=== PATIENT | male | born 1960 | race African-American/Black ===

== ENCOUNTER 2016-10-07 00:46 | Inpatient (IN) | payer OTHER ==
--- NOTE | 2016-10-07 00:54 | HP ---
CIWA Score - CIWA Score Nausea/Vomitin Muscle Tremors: 4-Moderate,w/Arms Extend Anxiety: 6 Agitation: 6 Paroxysmal Sweats: 1-Minimal Palms Moist Orientation: 1-Uncertain about Date Tacttile Disturbances: 0-None Auditory Disturbances: 0-None Visual Disturbances: 3-Moderate Sensitivity Headache: 0-None Present CIWA-Ar Total Score: 24 Admission ROS BHS - HPI Chief Complaint: C/O WITHDRAWAL S'S. SEEKING DETOX TXMENT Allergies/Adverse Reactions: Allergies Allergy/AdvReac Type Severity Reaction Status Date / Time No Known Allergies Allergy Verified 10/07/16 01:02 History of Present Illness: 56 Y.O. MALE WITH EXTENSIVE H/O ALCOHOLISM HERE FOR DETOX TXMENT. CLIENT LAST HERE 01/26. DENIES ANY RECENT DETOX/ REHAB SERVICES. HE ALSO DENIES ANY SIGNIFICANT PERIOD OF SOBRIETY. Exam Limitations: No Limitations - Ebola screening Have you traveled outside of the country in the last 21 days: No Have you had contact with anyone from an Ebola affected area: No Have you been sick,other than usual withdrawal symptoms: No Do you have a fever: No - Review of Systems Constitutional: Loss of Appetite, Night Sweats, Changes in sleep, Unintentional Wgt. Loss EENT: reports: No Symptoms Reported Respiratory: reports: No Symptoms reported Cardiac: reports: No Symptoms Reported GI: reports: Nausea, Poor Appetite, Poor Fluid Intake : reports: No Symptoms Reported Musculoskeletal: reports: No Symptoms Reported Integumentary: reports: No Symptoms Reported Neuro: reports: Seizure (WITHDRAWAL R/T) Endocrine: reports: No Symptoms Reported Hematology: reports: No Symptoms Reported Psychiatric: reports: Depressed Other Systems: Reviewed and Negative Patient History - Patient Medical History Hx Anemia: No Hx Asthma: No Hx Chronic Obstructive Pulmonary Disease (COPD): No Hx Cancer: No Hx Cardiac Disorders: No Hx Congestive Heart Failure: No Hx Hypertension: No Hx Hypercholesterolemia: No Hx Pacemaker: No HX Cerebrovascular Accident: No Hx Seizures: Yes (ALCOHOL WITHDRAWAL) Hx Dementia: No Hx Diabetes: Yes (BORDERLINE NO MEDS) Hx Gastrointestinal Disorders: No Hx Liver Disease: No Hx Genitourinary Disorders: No Hx Sexually Transmitted Disorders: No Hx Renal Disease (ESRD): No Hx Thyroid Disease: No Hx Human Immunodeficiency Virus (HIV): No Hx Hepatitis C: No Hx Depression: Yes (PRESENTLY DENIES SI/HI. DENIES MEDS) Hx Suicide Attempt: No Hx Bipolar Disorder: No Hx Schizophrenia: No Other Medical History: H/O + PPD - Patient Surgical History Past Surgical History: Yes Hx Neurologic Surgery: No Hx Cataract Extraction: No Hx Cardiac Surgery: No Hx Lung Surgery: No Hx Breast Surgery: No Hx Breast Biopsy: No Hx Abdominal Surgery: No Hx Appendectomy: No Hx Cholecystectomy: No Hx Genitourinary Surgery: No Hx Section: No Hx Orthopedic Surgery: Yes (LT KNEE SX) Anesthesia Reaction: No - PPD History Previous Implant?: Yes Documented Results: Positive w/o proof Implanted On Prior [facility] Admission?: No Results: CXR 01/26 NEG PPD to be Administered?: No - Smoking Cessation Smoking history: Current some day smoker Have you smoked in the past 12 months: Yes Aproximately how many cigarettes per day: 10 Cigars Per Day: 0 Hx Chewing Tobacco Use: No Initiated information on smoking cessation: Yes 'Breaking Loose' booklet given: 10/07/16 - Substance & Tx. History Hx Alcohol Use: Yes Hx Substance Use: Yes Substance Use Type: Alcohol Hx Substance Use Treatment: Yes ([facility]) - Substances Abused BEER/LIQUOR Route: Oral Frequency: Daily Amount used: 18- 16 OZ/ 1 PINT Age of first use: 12 Date of Last Use: 10/06/16 Family Disease History - Family Disease History Family Disease History: Other: Brother (alcohol,dsa) Admission Physical Exam [facility] - Physical General Appearance: Yes: Mild Distress, Alcohol on Breath, Intoxicated, Thin, Tremorous, Irritable, Anxious HEENTM: Yes: EOMI, Normocephalic, MISSY, Pharynx Normal, Other (MISSING TEETH) Respiratory: Yes: Chest Non-Tender, Lungs Clear, Normal Breath Sounds, No Respiratory Distress, No Accessory Muscle Use Neck: Yes: No masses,lesions,Nodules, Supple, Trachea in good position Breast: Yes: Breast Exam Deferred Cardiology: Yes: Regular Rhythm, S1, S2, Tachycardia Abdominal: Yes: Normal Bowel Sounds, Non Tender, Soft Genitourinary: Yes: Within Normal Limits Back: Yes: Within Normal Limits Musculoskeletal: Yes: full range of Motion, Other (UNSTEADY GAIT) Extremities: Yes: Normal Range of Motion, Non-Tender, Tremors Neurological: Yes: Alert, Motor Strength 5/5 Integumentary: Yes: Normal Color, Warm, Moist Lymphatic: Yes: Within Normal Limits - Diagnostic (1) Alcohol dependence with uncomplicated withdrawal Current Visit: Yes Status: Chronic (2) Seizure Current Visit: No Status: Acute (3) Nicotine dependence Current Visit: Yes Status: Chronic Qualifiers: Nicotine product type: cigarettes Substance use status: uncomplicated Qualified Code(s): F17.210 - Nicotine dependence, cigarettes, uncomplicated Cleared for Admission [facility] - Detox or Rehab [facility] Level of Care: Medically Managed Detox Regimen/Protocol: Librium S Breath Alcohol Content Breath Alcohol Content: 0.255 Vital Signs - Vital Signs Vital Signs Refused: Yes Temperature: 96.4 F Temperature Source: Oral Pulse Rate: 99 Respiratory Rate: 20 Blood Pressure: 118/81 BP Location: Left Arm Blood Pressure Position: Sitting - Height Height: 5 ft 7 in - Weight Weight: 58.06 kg Weight Measurement Method: Standing Scale Body Mass Index (BMI): 20.0 - Bowel Function Bowel Movement: No Urine Drug Screen - Test Device Lot Number: [id number] Expiration Date: 04/11/18 - Control Is Test Valid: Yes - Results Drug Screen Negative: Yes
[2016-10-07] MEDS ORDERED: MAGNESIUM HYDROX 2400MG/30ML ORAL SUSPENSION 30 ML CUP PO PRN (00:59)
[2016-10-07] MEDS ORDERED: hydrOXYzine PAMOATE 50 MG CAPSULE (FP) PO PRN (00:59)
[2016-10-07] MEDS ORDERED: NICOTINE POLACRILEX 2 MG GUM BC PRN (00:59)
[2016-10-07] MEDS ORDERED: MENTHOL/PHENOL 1 EACH UD MM PRN (00:59)
[2016-10-07] MEDS ORDERED: guaiFENesin/D-METHORPHAN HB 10 ML UNIT-DOSE CUPS PO PRN (00:59)
[2016-10-07] MEDS ORDERED: MAGNESIUM CITRATE 300 ML BOTTLE PO PRN (00:59)
[2016-10-07] MEDS ORDERED: MAG HYDROX/AL HYDROX/SIMETH 30 ML UNIT-DOSE CUP PO PRN (00:59)
[2016-10-07] MEDS ORDERED: P-EPHED 60MG/TRIPROLIDI 2.5MG TABLET PO PRN (00:59)
[2016-10-07] MEDS ORDERED: LOPERAMIDE HCL 2 MG CAPSULE PO PRN (00:59)
[2016-10-07] MEDS ORDERED: chlordiazePOXIDE HCL 25 MG CAPSULE PO PRN (00:59)
[2016-10-07] MEDS: diphenhydrAMINE HCL 50 MG CAPSULE PO PRN ×2 (01:32→22:40)
[2016-10-07] MEDS: IBUPROFEN 400 MG TABLET (FP) PO PRN ×2 (02:07→10:25)
[2016-10-07] MEDS: chlordiazePOXIDE HCL 25 MG CAPSULE PO SCH ×4 (06:41→22:40)
--- NOTE | 2016-10-07 09:15 | CONSULT ---
[facility] Psychiatric Consult - Data Date of interview: 10/07/16 Admission source: [facility] Identifying data: This is 56 years old male with history of Schizoaffective disorder intoxicated with: Alcohol Nicotine, with history of Cannabis and Cocaine abuse as well Substance Abuse History: - Smoking Cessation. Smoking history: Current some day smoker. Have you smoked in the past 12 months: Yes. Aproximately how many cigarettes per day: 10. Cigars Per Day: 0. Hx Chewing Tobacco Use: No. Initiated information on smoking cessation: Yes. 'Breaking Loose' booklet given : 10/07/16. - Substance & Tx. History. Hx Alcohol Use: Yes. Hx Substance Use : Yes. Substance Use Type: Alcohol. Hx Substance Use Treatment: Yes ([facility]). - Substances Abused. BEER/LIQUOR. Route: Oral. Frequency: Daily. Amount used: 18- 16 OZ/ 1 PINT. Age of first use: 12. Date of Last Use: 10/06/16 Medical History: Syncope history, Seizure history, Left Knee injury, Weight loss history Psychiatric History: Patient reports history of Schizoaffective disorder with most recent psyhciatric admission on more then 10 years ago, reports taking prior toadmission: Zyprexa 10mg po qhs Mental Status Exam - Mental Status Exam Alert and Oriented to: Person Cognitive Function: Fair Patient Appearance: Unkempt Mood: Nervous Affect: Mood Congruent Patient Behavior: Cooperative Speech Pattern: Appropriate Voice Loudness: Normal Thought Process: Goal Oriented Thought Disorder: Being Controlled Hallucinations: Denies Suicidal Ideation: Denies Homicidal Ideation: Denies Insight/Judgement: Fair Sleep: Difficulty falling asleep Appetite: Weight loss Muscle strength/Tone: Normal Gait/Station: Normal Additional Comments: Zyprexa 10mg po qhs Psychiatric Findings - Problem List ([place] 1, 2,3) (1) Alcohol dependence with uncomplicated withdrawal Current Visit: Yes Status: Chronic (2) Nicotine dependence Current Visit: Yes Status: Chronic Qualifiers: Nicotine product type: cigarettes Substance use status: uncomplicated Qualified Code(s): F17.210 - Nicotine dependence, cigarettes, uncomplicated (3) Cocaine dependence Current Visit: No Status: Active (4) schizoaffective disorder Current Visit: No Status: Active (5) Alcohol abuse Current Visit: No Status: Acute (6) Alcohol dependence Current Visit: No Status: Acute (7) Alcohol-induced mood disorder Current Visit: No Status: Acute (8) Drug-induced mood disorder Current Visit: No Status: Acute (9) Non compliance with medical treatment Current Visit: No Status: Acute (10) Schizoaffective disorder Current Visit: No Status: Acute (11) cannabis dependence Current Visit: No Status: Acute (12) Alcohol dependence Current Visit: No Status: Chronic (13) Anxiety and depression Current Visit: No Status: Chronic - Initial Treatment Plan Initial Treatment Plan: Zyprexa 10mg po qhs
[2016-10-07] MEDS: NICOTINE 14 MG/24 HOURS TOPICAL PATCH TD SCH (10:24)
[2016-10-07] MEDS: PRENATAL VITAMINS W/ FOLIC ACID TABLET (FP) PO SCH (10:24)
[2016-10-07 10:56] LABS: ALBUMIN 2.7 g/dl (3.4-5.0); ALK PHOS 154 U/L (45-117); ANION GAP 16 (8-16); BILIRUBIN,TOTAL 1.3 mg/dL (0.2-1.0); CO2 21 mmol/L (21-32); COCKROFT - GAULT 84.6; CREATININE 0.8 mg/dL (0.7-1.3)
[2016-10-07 10:59] LABS: GLUCOSE,RANDOM 155 mg/dL (74-106)
[2016-10-07 11:07] LABS: MCH 34.7 pg (25.7-33.7); MCHC 36.8 g/dl (32.0-35.9); MEAN CELL VOLUME 94.5 fl (80-96); MEAN PLT VOLUME 9.2 fl (7.5-11.1); PLATELET COUNT 74 K/MM3 (134-434); RDW 14.8 % (11.9-15.9); WHITE BLOOD COUNT 2.2 K/mm3 (4.0-10.0)
[2016-10-07] MEDS ORDERED: INFLUENZA VACCINE 45 MCG/0.5 ML (MDV 16-17) IM ONE (12:00)
--- NOTE | 2016-10-07 12:16 | PN ---
[facility] Progress Note Note: PT WAS ADMITTED EARLIER TODAY. ALERT O X 3. NAD. DETOX PROTOCOL DIRECTED.
--- NOTE | 2016-10-07 13:34 | EKG ---
Test Reason : Blood Pressure : / mmHG Vent. Rate : 088 BPM Atrial Rate : 088 BPM P-R Int : 188 ms QRS Dur : 102 ms QT Int : 394 ms P-R-T Axes : 069 075 060 degrees QTc Int : 476 ms NORMAL SINUS RHYTHM POSSIBLE LEFT ATRIAL ENLARGEMENT BORDERLINE ECG WHEN COMPARED WITH ECG OF 27-NOV-2014 14:25, T WAVE INVERSION NO LONGER EVIDENT IN ANTERIOR LEADS Confirmed by GEORGES ALSTON, KRYSTIAN ([id number]) on 10/07/2016 1:33:50 PM Referred By: Confirmed By:KRYSTIAN SU MD
[2016-10-07 15:45] LABS: URINE APPEARANCE CLEAR; URINE BILIRUBIN NEGATIVE (NEGATIVE); URINE BLOOD NEGATIVE (NEGATIVE); URINE COLOR YELLOW; URINE GLUCOSE (UA) NEGATIVE (NEGATIVE); URINE KETONE NEGATIVE (NEGATIVE); URINE LEUK ESTERASE NEGATIVE (NEGATIVE); URINE NITRITE NEGATIVE (NEGATIVE); URINE PROTEIN NEGATIVE (NEGATIVE); URINE UROBILINOGEN NEGATIVE E.U./dl (0.2-1.0)
[2016-10-07 18:58] LABS: HIV 1 & 2 AB NEGATIVE; HIV 1 AGp24 NEGATIVE
[2016-10-07] MEDS: THIAMINE HCL 100 MG TABLET (FP) PO SCH (22:39)
[2016-10-07] MEDS: OLANZapine 10 MG TABLET PO SCH (22:40)
[2016-10-07] MEDS: ACETAMINOPHEN 325 MG TABLET (FP) PO PRN (22:41)
[2016-10-08] MEDS: chlordiazePOXIDE HCL 25 MG CAPSULE PO SCH ×4 (05:34→22:17)
[2016-10-08] MEDS: NICOTINE 14 MG/24 HOURS TOPICAL PATCH TD SCH (10:37)
[2016-10-08] MEDS: PRENATAL VITAMINS W/ FOLIC ACID TABLET (FP) PO SCH (10:37)
--- NOTE | 2016-10-08 12:43 | PN ---
S CIWA - CIWA Score Nausea/Vomitin-Mild Nausea/No Vomiting Muscle Tremors: 4-Moderate,w/Arms Extend Anxiety: 4-Mod. Anxious/Guarded Agitation: 3 Paroxysmal Sweats: 3 Orientation: 0-Oriented Tacttile Disturbances: 1-Very Mild Itch/Numbness Auditory Disturbances: 0-None Visual Disturbances: 0-None Headache: 0-None Present CIWA-Ar Total Score: 16 BHS Progress Note (SOAP) Subjective: Anxiety,tremors,sweating,interrupted sleep,restless Objective: 10/08/16 12:42 Vital Signs - 8 hr 10/08/16 10/08/16 10/08/16 06:30 06:39 09:29 Temperature 96 F L 97.7 F Pulse Rate 109 H 96 H Respiratory 18 18 16 Rate Blood Pressure 124/82 122/89 Laboratory Tests 10/07/16 10/07/16 10/07/16 07:00 07:00 07:00 WBC 2.2 L RBC 3.13 L Hgb 10.9 L Hct 29.6 L MCV 94.5 MCHC 36.8 H RDW 14.8 Plt Count 74 L D MPV 9.2 Sodium 134 L Potassium 3.8 Chloride 97 L Carbon Dioxide 21 Anion Gap 16 BUN Creatinine 0.8 D Creat Clearance w eGFR > 60 Random Glucose 155 H D Calcium Total Bilirubin 1.3 H D AST ALT Alkaline Phosphatase 154 H D Total Protein Albumin 2.7 L Urine Color Urine Appearance Urine pH Ur Specific [place] Urine Protein Urine Glucose (UA) Urine Ketones Urine Blood Urine Nitrite Urine Bilirubin Urine Urobilinogen Ur Leukocyte Esterase RPR Titer Nonreactive HIV 1&2 Antibody Screen HIV P24 Antigen 10/07/16 10/07/16 11:00 11:00 WBC RBC Hgb Hct MCV MCHC RDW Plt Count MPV Sodium Potassium Chloride Carbon Dioxide Anion Gap BUN Creatinine Creat Clearance w eGFR Random Glucose Calcium Total Bilirubin AST ALT Alkaline Phosphatase Total Protein Albumin Urine Color Yellow Urine Appearance Clear Urine pH 5.0 Ur Specific [place] 1.011 Urine Protein Negative Urine Glucose (UA) Negative Urine Ketones Negative Urine Blood Negative Urine Nitrite Negative Urine Bilirubin Negative Urine Urobilinogen Negative Ur Leukocyte Esterase Negative RPR Titer HIV 1&2 Antibody Screen Negative HIV P24 Antigen Negative labs noted Assessment: 10/08/16 12:42 Withdrawal sx. Plan: Continue detox
[2016-10-08] MEDS: IBUPROFEN 400 MG TABLET (FP) PO PRN (17:05)
[2016-10-08] MEDS: THIAMINE HCL 100 MG TABLET (FP) PO SCH (22:17)
[2016-10-08] MEDS: diphenhydrAMINE HCL 50 MG CAPSULE PO PRN (22:17)
[2016-10-08] MEDS: OLANZapine 10 MG TABLET PO SCH (22:17)
[2016-10-09] MEDS: diphenhydrAMINE HCL 50 MG CAPSULE PO PRN (00:26)
[2016-10-09] MEDS: chlordiazePOXIDE 5 MG CAPSULE PO SCH ×3 (04:37→17:47)
[2016-10-09] MEDS: IBUPROFEN 400 MG TABLET (FP) PO PRN (05:45)
[2016-10-09] MEDS: ACETAMINOPHEN 325 MG TABLET (FP) PO PRN ×2 (10:27→17:48)
[2016-10-09] MEDS: NICOTINE 14 MG/24 HOURS TOPICAL PATCH TD SCH (10:27)
[2016-10-09] MEDS: PRENATAL VITAMINS W/ FOLIC ACID TABLET (FP) PO SCH (10:27)
--- NOTE | 2016-10-09 15:53 | PN ---
[facility] CIWA - CIWA Score Nausea/Vomitin-Int. Nausea w/Dry Heave Muscle Tremors: 4-Moderate,w/Arms Extend Anxiety: 3 Agitation: 2 Paroxysmal Sweats: 3 Orientation: 4Disoriented Place/Person Tacttile Disturbances: 3-Moderate Itch/Numb/Burn Auditory Disturbances: 0-None Visual Disturbances: 0-None Headache: 0-None Present CIWA-Ar Total Score: 23 S Progress Note (SOAP) Subjective: Interrupted sleep, Body aches, Nausea. Objective: PT. A & O X 1 (DISORIENTED ABOUT DAY/DATE AND ABOUT CURRENT LOCATION). PT. OBSERVED AMBULATING ON UNIT. 10/09/16 15:51 Vital Signs Temperature 96.0 F L 10/09/16 13:46 Pulse Rate 108 H 10/09/16 13:46 Respiratory Rate 20 10/09/16 13:46 Blood Pressure 126/84 10/09/16 13:46 O2 Sat by Pulse Oximetry (%) Laboratory Last Values WBC 2.2 K/mm3 (4.0-10.0) L 10/07/16 07:00 RBC 3.13 M/mm3 (4.00-5.60) L 10/07/16 07:00 Hgb 10.9 GM/dL (11.7-16.9) L 10/07/16 07:00 Hct 29.6 % (35.4-49) L 10/07/16 07:00 MCV 94.5 fl (80-96) 10/07/16 07:00 MCHC 36.8 g/dl (32.0-35.9) H 10/07/16 07:00 RDW 14.8 % (11.9-15.9) 10/07/16 07:00 Plt Count 74 K/MM3 (134-434) L D 10/07/16 07:00 MPV 9.2 fl (7.5-11.1) 10/07/16 07:00 Sodium 134 mmol/L (136-145) L 10/07/16 07:00 Potassium 3.8 mmol/L (3.5-5.1) 10/07/16 07:00 Chloride 97 mmol/L (98-107) L 10/07/16 07:00 Carbon Dioxide 21 mmol/L (21-32) 10/07/16 07:00 Anion Gap 16 (8-16) 10/07/16 07:00 BUN mg/dL (7-18) 10/07/16 07:00 Creatinine 0.8 mg/dL (0.7-1.3) D 10/07/16 07:00 Creat Clearance w eGFR > 60 (>60) 10/07/16 07:00 Random Glucose 155 mg/dL (74-106) H D 10/07/16 07:00 Calcium mg/dL (8.5-10.1) 10/07/16 07:00 Total Bilirubin 1.3 mg/dL (0.2-1.0) H D 10/07/16 07:00 AST U/L (15-37) 10/07/16 07:00 ALT U/L (12-78) 10/07/16 07:00 Alkaline Phosphatase 154 U/L (45-117) H D 10/07/16 07:00 Total Protein g/dl (6.4-8.2) 10/07/16 07:00 Albumin 2.7 g/dl (3.4-5.0) L 10/07/16 07:00 Urine Color Yellow 10/07/16 11:00 Urine Appearance Clear 10/07/16 11:00 Urine pH 5.0 (5.0-8.0) 10/07/16 11:00 Ur Specific [place] 1.011 (1.001-1.035) 10/07/16 11:00 Urine Protein Negative (NEGATIVE) 10/07/16 11:00 Urine Glucose (UA) Negative (NEGATIVE) 10/07/16 11:00 Urine Ketones Negative (NEGATIVE) 10/07/16 11:00 Urine Blood Negative (NEGATIVE) 10/07/16 11:00 Urine Nitrite Negative (NEGATIVE) 10/07/16 11:00 Urine Bilirubin Negative (NEGATIVE) 10/07/16 11:00 Urine Urobilinogen Negative E.U./dl (0.2-1.0) 10/07/16 11:00 Ur Leukocyte Esterase Negative (NEGATIVE) 10/07/16 11:00 RPR Titer Nonreactive (NONREACTIVE) 10/07/16 07:00 HIV 1&2 Antibody Screen Negative 10/07/16 11:00 HIV P24 Antigen Negative 10/07/16 11:00 LABS NOTED. 10/09/16 15:55 Assessment: 10/09/16 15:55 WITHDRAWAL SYMPTOMS. Plan: CONTINUE DETOX. RE-ORDER BUN TOMORROW. ADVISED PATIENT TO FOLLOW-UP WITH PRICE ANALYST / REHAB MEDICAL PROVIDER AFTER DISCHARGE FROM DETOX FOR GENERAL MEDICAL ASSESSMENT AND FOR ABNORMAL ADMISSION LAB VALUES.
[2016-10-09 17:47] VITALS: BP 147/73; PULSE 81; TEMP 98.8
--- NOTE | 2016-10-09 19:38 | DS ---
[facility] Detox Discharge Summary Admission Date: 10/07/16 Discharge Date: 10/09/16 - History Present History: Alcohol Dependence - Physical Exam Results Vital Signs: Vital Signs Temperature 98.8 F 10/09/16 17:46 Pulse Rate 81 10/09/16 17:46 Respiratory Rate 19 10/09/16 17:46 Blood Pressure 147/73 10/09/16 17:46 O2 Sat by Pulse Oximetry (%) - Treatment Hospital Course: Discharged Condition Good - Medication Discharge Medications: Ambulatory Orders Olanzapine [ZyPREXA -] 10 mg PO HS #30 tablet 11/05/15 Olanzapine [ZyPREXA -] 10 mg PO HS #30 tablet 10/07/16 - AMA Did Patient Leave Against Medical Advice: Yes (REPORTS HE HAS A [employer] PARTY TO ATTEND AND WILL RETURN AFTER THE [employer]. )
[2016-10-10] MEDS ORDERED: chlordiazePOXIDE HCL 10 MG CAPSULE PO SCH (05:00)
== END 2016-10-09 19:45 | disposition left against medical advice (07) | DRG 770 ==
LOC: YASAS 00:46 → Y3N 01:04
PROVIDERS: ADMIT Internal Medicine; ATTEND Internal Medicine
PROC: HZ2ZZZZ Detoxification Services for Substance Abuse Treatment (ICD-10-PCS; principal; 2016-10-09)
DX: F10.230 Alcohol dependence with withdrawal, uncomplicated (principal); F14.20 Cocaine dependence, uncomplicated; F12.20 Cannabis dependence, uncomplicated; F17.210 Nicotine dependence, cigarettes, uncomplicated; F10.24 Alcohol dependence with alcohol-induced mood disorder; F19.24 Other psychoactive substance dependence with psychoactive substance-induced mood disorder; F25.9 Schizoaffective disorder, unspecified; F41.8 Other specified anxiety disorders; Z91.14 Patient's other noncompliance with medication regimen
CPT/HCPCS: 36415; 80053; 81003; 85027; 86593; 87389; 93005; 93010

== ENCOUNTER 2016-11-28 20:55 | Inpatient (IN) | payer OTHER ==
--- NOTE | 2016-11-28 21:27 | HP ---
CIWA Score - CIWA Score Nausea/Vomitin Muscle Tremors: 4-Moderate,w/Arms Extend Anxiety: 4-Mod. Anxious/Guarded Agitation: 4-Moderately Restless Paroxysmal Sweats: 1-Minimal Palms Moist Orientation: 1-Uncertain about Date Tacttile Disturbances: 2-Mild Itch/Numbness/Burn Auditory Disturbances: 2-Mild Harshness/Frighten Visual Disturbances: 0-None Headache: 2-Mild CIWA-Ar Total Score: 23 Admission ROS BHS - HPI Chief Complaint: C/O ALCOHOLISM. SEEKING DETOX Allergies/Adverse Reactions: Allergies Allergy/AdvReac Type Severity Reaction Status Date / Time No Known Allergies Allergy Verified 11/28/16 21:21 History of Present Illness: 56 Y.O MALE WITH LONG H/O ALCOHOLISM ADMITTED TO DETOX. DENIES RECENT DETOX SINCE LAST VISIT. SELF REFERRED. REPORTS LONGEST CLEAN TIME 1 YEAR. CLIENT IS PRESENTLY ON CLINICAL CONCERNS LIST FOR AMA. D/W CLIENT ABOUT COMPLIANCE AND COMPLETING TXMENT. CLIENT VERBALIZED UNDERSTANDING Exam Limitations: Intoxication - Ebola screening Have you traveled outside of the country in the last 21 days: No (N) Have you had contact with anyone from an Ebola affected area: No Do you have a fever: No - Review of Systems Constitutional: Chills, Loss of Appetite, Night Sweats, Changes in sleep, Unintentional Wgt. Loss EENT: reports: Dental Problems (MISSING TEETH) Respiratory: reports: No Symptoms reported Cardiac: reports: No Symptoms Reported GI: reports: Nausea, Poor Appetite, Poor Fluid Intake, Vomiting, Abdominal cramping : reports: No Symptoms Reported Musculoskeletal: reports: No Symptoms Reported Integumentary: reports: No Symptoms Reported Neuro: reports: Headache (FROM INTOXICATION), Tremors (FROM ETOH) Endocrine: reports: No Symptoms Reported Hematology: reports: No Symptoms Reported Psychiatric: reports: Anxious, Depressed Other Systems: Reviewed and Negative Patient History - Patient Medical History Hx Anemia: No Hx Asthma: No Hx Chronic Obstructive Pulmonary Disease (COPD): No Hx Cancer: No Hx Cardiac Disorders: No Hx Congestive Heart Failure: No Hx Hypertension: No Hx Hypercholesterolemia: No Hx Pacemaker: No HX Cerebrovascular Accident: No Hx Seizures: No Hx Dementia: No Hx Diabetes: Yes (STATES BODERLINE) Hx Gastrointestinal Disorders: No Hx Liver Disease: No Hx Genitourinary Disorders: No Hx Sexually Transmitted Disorders: No Hx Renal Disease (ESRD): No Hx Thyroid Disease: No Hx Human Immunodeficiency Virus (HIV): No Hx Hepatitis C: No Hx Depression: Yes Hx Suicide Attempt: No Hx Bipolar Disorder: No Hx Schizophrenia: No Other Medical History: DENIES - Patient Surgical History Past Surgical History: Yes Hx Neurologic Surgery: No Hx Cataract Extraction: No Hx Cardiac Surgery: No Hx Lung Surgery: No Hx Breast Surgery: No Hx Breast Biopsy: No Hx Abdominal Surgery: No Hx Appendectomy: No Hx Cholecystectomy: No Hx Genitourinary Surgery: No Hx Section: No Hx Orthopedic Surgery: Yes (LT KNEE SX) Anesthesia Reaction: No - PPD History Previous Implant?: Yes Documented Results: Negative w/proof Implanted On Prior [facility] Admission?: Yes Results: CXR 01/26 NEG PPD to be Administered?: No - Smoking Cessation Smoking history: Current some day smoker Have you smoked in the past 12 months: Yes Aproximately how many cigarettes per day: 10 Cigars Per Day: 0 Hx Chewing Tobacco Use: No Initiated information on smoking cessation: Yes 'Breaking Loose' booklet given: 11/28/16 - Substance & Tx. 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 Age of first use: 7 Date of Last Use: 11/28/16 Family Disease History - Family Disease History Family Disease History: Other: Brother (alcohol,dsa) Admission Physical Exam [facility] - Physical General Appearance: Yes: Appropriately Dressed, Alcohol on Breath, Intoxicated, Tremorous, Anxious HEENTM: Yes: EOMI, Normocephalic, MISSY, Pharynx Normal, Rhinorrhea Respiratory: Yes: Chest Non-Tender, Lungs Clear, Normal Breath Sounds, No Respiratory Distress, No Accessory Muscle Use Neck: Yes: No masses,lesions,Nodules, Supple, Trachea in good position Breast: Yes: Breast Exam Deferred Cardiology: Yes: Regular Rhythm, S1, S2, Tachycardia Abdominal: Yes: Normal Bowel Sounds, Non Tender, Soft Genitourinary: Yes: Within Normal Limits Back: Yes: Normal Inspection Musculoskeletal: Yes: full range of Motion, Gait Steady Extremities: Yes: Normal Capillary Refill, Normal Range of Motion, Non-Tender, Tremors Neurological: Yes: Alert Integumentary: Yes: Dry, Warm, Other (FLUSHED FACE) Lymphatic: Yes: Within Normal Limits - Diagnostic (1) Alcohol dependence with uncomplicated withdrawal Current Visit: Yes Status: Chronic (2) Nicotine dependence Current Visit: No Status: Chronic Qualifiers: Nicotine product type: cigarettes Substance use status: uncomplicated Qualified Code(s): F17.210 - Nicotine dependence, cigarettes, uncomplicated Cleared for Admission BHS - Detox or Rehab S Level of Care: Medically Managed Detox Regimen/Protocol: Librium BHS Breath Alcohol Content Breath Alcohol Content: 0.355 Vital Signs - Vital Signs Vital Signs Refused: No Temperature: 96.4 F Temperature Source: Oral Pulse Rate: 108 Respiratory Rate: 18 Blood Pressure: 118/81 BP Location: Left Arm Blood Pressure Position: Sitting - Height Height: 5 ft 6 in - Weight Weight: 58.06 kg Weight Measurement Method: Standing Scale Body Mass Index (BMI): 20.6 Urine Drug Screen - Test Device Lot Number: [id number] Expiration Date: 09/10/18 - Control Is Test Valid: Yes - Results Drug Screen Negative: No
[2016-11-28 21:39] VITALS: BMI 20.6
[2016-11-28] MEDS ORDERED: MENTHOL/PHENOL 1 EACH UD MM PRN (21:40)
[2016-11-28] MEDS ORDERED: chlordiazePOXIDE HCL 25 MG CAPSULE PO PRN (21:40)
[2016-11-28] MEDS ORDERED: MAG HYDROX/AL HYDROX/SIMETH 30 ML UNIT-DOSE CUP PO PRN (21:40)
[2016-11-28] MEDS ORDERED: MAGNESIUM CITRATE 300 ML BOTTLE PO PRN (21:40)
[2016-11-28] MEDS ORDERED: P-EPHED 60MG/TRIPROLIDI 2.5MG TABLET PO PRN (21:40)
[2016-11-28] MEDS ORDERED: hydrOXYzine PAMOATE 50 MG CAPSULE (FP) PO PRN (21:40)
[2016-11-28] MEDS ORDERED: ACETAMINOPHEN 325 MG TABLET (FP) PO PRN (21:40)
[2016-11-28] MEDS ORDERED: NICOTINE POLACRILEX 2 MG GUM BUC PRN (21:40)
[2016-11-28] MEDS ORDERED: guaiFENesin/D-METHORPHAN HB 10 ML UNIT-DOSE CUPS PO PRN (21:40)
[2016-11-28] MEDS ORDERED: LOPERAMIDE HCL 2 MG CAPSULE PO PRN (21:40)
[2016-11-28] MEDS ORDERED: MAGNESIUM HYDROX 2400MG/30ML ORAL SUSPENSION 30 ML CUP PO PRN (21:40)
[2016-11-28] MEDS: chlordiazePOXIDE HCL 25 MG CAPSULE PO SCH (23:42)
[2016-11-28] MEDS: NICOTINE 14 MG/24 HOURS TOPICAL PATCH TD SCH (23:43)
[2016-11-28] MEDS: THIAMINE HCL 100 MG TABLET (FP) PO SCH (23:43)
[2016-11-28] MEDS: diphenhydrAMINE HCL 50 MG CAPSULE PO PRN (23:45)
[2016-11-29] MEDS: chlordiazePOXIDE HCL 25 MG CAPSULE PO SCH ×4 (05:57→22:23)
[2016-11-29 10:18] LABS: MCH 31.4 pg (25.7-33.7); MCHC 33.8 g/dl (32.0-35.9); MEAN CELL VOLUME 92.7 fl (80-96); MEAN PLT VOLUME 9.3 fl (7.5-11.1); PLATELET COUNT 81 K/MM3 (134-434); RDW 14.6 % (11.9-15.9); WHITE BLOOD COUNT 2.3 K/mm3 (4.0-10.0)
[2016-11-29 10:36] LABS: ALBUMIN 3.4 g/dl (3.4-5.0); ALK PHOS 117 U/L (45-117); ANION GAP 12 (8-16); BILIRUBIN,TOTAL 0.6 mg/dL (0.2-1.0); CALCIUM 8.8 mg/dL (8.5-10.1); CO2 27 mmol/L (21-32); CREATININE 0.7 mg/dL (0.7-1.3); GLUCOSE,RANDOM 92 mg/dL (74-106); SGOT/AST 106 U/L (15-37); SGPT/ALT 60 U/L (12-78); TOT PROT 7.3 g/dl (6.4-8.2)
--- NOTE | 2016-11-29 10:41 | PN ---
[facility] CIWA - CIWA Score Nausea/Vomitin Muscle Tremors: 3 Anxiety: 3 Agitation: 2 Paroxysmal Sweats: 1-Minimal Palms Moist Orientation: 0-Oriented Tacttile Disturbances: 1-Very Mild Itch/Numbness Auditory Disturbances: 1-Very Mild Visual Disturbances: 1-Very Mild Sensitivity Headache: 2-Mild CIWA-Ar Total Score: 17 BHS Progress Note (SOAP) Subjective: ALERT,IRRITABLE,ANXIOUS,TREMOR,INTERRUPTED SLEEP, Objective: 11/29/16 10:39 Vital Signs Temperature 98.1 F 11/29/16 06:00 Pulse Rate 89 11/29/16 06:00 Respiratory Rate 18 11/29/16 06:00 Blood Pressure 124/79 11/29/16 06:00 O2 Sat by Pulse Oximetry (%) EKG NSR NO CHEAT PAIN,NO SOB,NO DIZZINESS Laboratory Last Values WBC 2.3 K/mm3 (4.0-10.0) L 11/29/16 07:00 RBC 3.53 M/mm3 (4.00-5.60) L 11/29/16 07:00 Hgb 11.1 GM/dL (11.7-16.9) L 11/29/16 07:00 Hct 32.8 % (35.4-49) L 11/29/16 07:00 MCV 92.7 fl (80-96) 11/29/16 07:00 MCHC 33.8 g/dl (32.0-35.9) 11/29/16 07:00 RDW 14.6 % (11.9-15.9) 11/29/16 07:00 Plt Count 81 K/MM3 (134-434) L 11/29/16 07:00 MPV 9.3 fl (7.5-11.1) 11/29/16 07:00 LABS PENDING Assessment: 11/29/16 10:40 WITHDRAWAL SYMPTOM Plan: CONTINUE DETOX
[2016-11-29 11:00] LABS: HIV 1 & 2 AB NEGATIVE; HIV 1 AGp24 NEGATIVE
[2016-11-29] MEDS: PRENATAL VITAMINS W/ FOLIC ACID TABLET (FP) PO SCH (11:28)
[2016-11-29] MEDS: NICOTINE 14 MG/24 HOURS TOPICAL PATCH TD SCH (11:30)
--- NOTE | 2016-11-29 14:23 | EKG ---
Test Reason : Blood Pressure : / mmHG Vent. Rate : 089 BPM Atrial Rate : 089 BPM P-R Int : 188 ms QRS Dur : 112 ms QT Int : 384 ms P-R-T Axes : 062 065 060 degrees QTc Int : 467 ms NORMAL SINUS RHYTHM POSSIBLE LEFT ATRIAL ENLARGEMENT BORDERLINE ECG WHEN COMPARED WITH ECG OF 07-OCT-2016 00:40, T WAVE VARIATION Confirmed by XENIA MUNGUIA MD ([id number]) on 11/29/2016 2:22:59 PM Referred By: Cristiano Lou Confirmed By:XENIA MUNGUIA MD
[2016-11-29] MEDS: diphenhydrAMINE HCL 50 MG CAPSULE PO PRN (22:23)
[2016-11-29] MEDS: THIAMINE HCL 100 MG TABLET (FP) PO SCH (22:23)
[2016-11-30] MEDS: chlordiazePOXIDE HCL 25 MG CAPSULE PO SCH ×3 (05:34→17:45)
[2016-11-30] MEDS: PRENATAL VITAMINS W/ FOLIC ACID TABLET (FP) PO SCH (10:32)
[2016-11-30] MEDS: NICOTINE 14 MG/24 HOURS TOPICAL PATCH TD SCH (10:32)
--- NOTE | 2016-11-30 11:21 | PN ---
[facility] CIWA - CIWA Score Nausea/Vomitin Muscle Tremors: 3 Anxiety: 3 Agitation: 2 Paroxysmal Sweats: 1-Minimal Palms Moist Orientation: 0-Oriented Tacttile Disturbances: 1-Very Mild Itch/Numbness Auditory Disturbances: 1-Very Mild Visual Disturbances: 1-Very Mild Sensitivity Headache: 2-Mild CIWA-Ar Total Score: 17 BHS Progress Note (SOAP) Subjective: ALERT,IRRITABLE,ANXIOUS,INTERRUPTED SLEEP,TREMOR Objective: 11/30/16 11:19 Vital Signs Temperature 97.9 F 11/30/16 09:33 Pulse Rate 108 H 11/30/16 09:33 Respiratory Rate 18 11/30/16 09:33 Blood Pressure 138/84 11/30/16 09:33 O2 Sat by Pulse Oximetry (%) Laboratory Last Values WBC 2.3 K/mm3 (4.0-10.0) L 11/29/16 07:00 RBC 3.53 M/mm3 (4.00-5.60) L 11/29/16 07:00 Hgb 11.1 GM/dL (11.7-16.9) L 11/29/16 07:00 Hct 32.8 % (35.4-49) L 11/29/16 07:00 MCV 92.7 fl (80-96) 11/29/16 07:00 MCHC 33.8 g/dl (32.0-35.9) 11/29/16 07:00 RDW 14.6 % (11.9-15.9) 11/29/16 07:00 Plt Count 81 K/MM3 (134-434) L 11/29/16 07:00 MPV 9.3 fl (7.5-11.1) 11/29/16 07:00 Sodium 139 mmol/L (136-145) 11/29/16 07:00 Potassium 3.8 mmol/L (3.5-5.1) 11/29/16 07:00 Chloride 100 mmol/L (98-107) 11/29/16 07:00 Carbon Dioxide 27 mmol/L (21-32) D 11/29/16 07:00 Anion Gap 12 (8-16) 11/29/16 07:00 BUN 11 mg/dL (7-18) D 11/29/16 07:00 Creatinine 0.7 mg/dL (0.7-1.3) 11/29/16 07:00 Creat Clearance w eGFR > 60 (>60) 11/29/16 07:00 Random Glucose 92 mg/dL (74-106) D 11/29/16 07:00 Calcium 8.8 mg/dL (8.5-10.1) 11/29/16 07:00 Total Bilirubin 0.6 mg/dL (0.2-1.0) D 11/29/16 07:00 AST 106 U/L (15-37) H D 11/29/16 07:00 ALT 60 U/L (12-78) D 11/29/16 07:00 Alkaline Phosphatase 117 U/L (45-117) D 11/29/16 07:00 Total Protein 7.3 g/dl (6.4-8.2) 11/29/16 07:00 Albumin 3.4 g/dl (3.4-5.0) D 11/29/16 07:00 RPR Titer Nonreactive (NONREACTIVE) 11/29/16 07:00 Hepatitis C Antibody 0.3 s/co ratio (0.0-0.9) 11/28/16 07:00 HIV 1&2 Antibody Screen Negative 11/29/16 07:00 HIV P24 Antigen Negative 11/29/16 07:00 Assessment: 11/30/16 11:19 WITHDRAWAL SYMPTOM Plan: CONTINUE DETOX,LEUKOPENIA,REPEAT CBC IN AM,D/C TYLENOL ELEVATION OF AST,ALT
[2016-11-30] MEDS: IBUPROFEN 400 MG TABLET (FP) PO PRN ×2 (13:52→22:28)
[2016-11-30 14:27] LABS: URINE APPEARANCE CLEAR; URINE BILIRUBIN NEGATIVE (NEGATIVE); URINE BLOOD NEGATIVE (NEGATIVE); URINE COLOR YELLOW; URINE GLUCOSE (UA) NEGATIVE (NEGATIVE); URINE KETONE NEGATIVE (NEGATIVE); URINE LEUK ESTERASE NEGATIVE (NEGATIVE); URINE NITRITE NEGATIVE (NEGATIVE); URINE PROTEIN NEGATIVE (NEGATIVE); URINE UROBILINOGEN NEGATIVE E.U./dl (0.2-1.0)
[2016-11-30] MEDS: THIAMINE HCL 100 MG TABLET (FP) PO SCH (22:26)
[2016-11-30] MEDS: chlordiazePOXIDE 5 MG CAPSULE PO SCH (22:27)
[2016-11-30] MEDS: diphenhydrAMINE HCL 50 MG CAPSULE PO PRN (22:27)
[2016-12-01] MEDS: chlordiazePOXIDE 5 MG CAPSULE PO SCH ×3 (05:38→17:28)
--- NOTE | 2016-12-01 09:34 | PN ---
S Progress Note (SOAP) Subjective: ALERT,HARD OF HEARING LEFT EAR Objective: 12/01/16 09:33 Vital Signs Temperature 97.5 F L 12/01/16 06:08 Pulse Rate 49 L 12/01/16 06:08 Respiratory Rate 16 12/01/16 06:08 Blood Pressure 126/68 12/01/16 06:08 O2 Sat by Pulse Oximetry (%) 12/01/16 09:37 Assessment: 12/01/16 09:37 WITHDRAWAL SYMPTOM 12/01/16 09:37 EAR WAX BOTH EAR Plan: CONTINUE DETOX,DEBROX BOTH EARS,CONTINUE DETOX,DISCHARGE IN AM
[2016-12-01 09:43] LABS: BASOPHIL 0.7 % (0-2.0); EOSINOPHIL 2.5 % (0-4.5); MCHC 32.9 g/dl (32.0-35.9); MEAN CELL VOLUME 94.2 fl (80-96); MEAN PLT VOLUME 10.1 fl (7.5-11.1); NEUTROPHILS 45.2 % (42.8-82.8); PLATELET COUNT 72 K/MM3 (134-434); RDW 14.4 % (11.9-15.9); WHITE BLOOD COUNT 3.2 K/mm3 (4.0-10.0)
[2016-12-01] MEDS: PRENATAL VITAMINS W/ FOLIC ACID TABLET (FP) PO SCH (10:09)
[2016-12-01] MEDS: CARBAMIDE PEROXIDE 6.5% OTIC 15 ML BOTTLE AU SCH ×2 (10:10→22:39)
[2016-12-01] MEDS: NICOTINE 14 MG/24 HOURS TOPICAL PATCH TD SCH (10:10)
--- NOTE | 2016-12-01 10:57 | CONSULT ---
[facility] Psychiatric Consult - Data Date of interview: 11/30/16 Admission source: [facility] Identifying data: This is 56 years old male with history of Schizoaffective disorder intoxicated with: Alcohol, Cocaine, Cannabis and Nicotine Substance Abuse History: - Smoking Cessation. Smoking history: Current some day smoker. Have you smoked in the past 12 months: Yes. Aproximately how many cigarettes per day: 10. Cigars Per Day: 0. Hx Chewing Tobacco Use: No. Initiated information on smoking cessation: Yes. 'Breaking Loose' booklet given : 11/28/16. - Substance & Tx. History. Hx Alcohol Use: Yes. Hx Substance Use : Yes. Substance Use Type: Alcohol. Hx Substance Use Treatment: Yes ([facility]). - Substances Abused. BEER. Route: Oral. Frequency: Daily. 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 Age of first use: 7. Date of Last Use: 11/28/16 Medical History: Syncope, Left Knee injury, Seizre history, Weight loss history Psychiatric History: Patient reprots to carry Schizoaffective disorder with unclear past psychiatric hsopitalization history, reprots currently taking: Zyprexa 20mg po qhs Physical/Sexual Abuse/Trauma History: Denies Additional Comment: Zyprexa 20mg po qhs Mental Status Exam - Mental Status Exam Alert and Oriented to: Person Cognitive Function: Fair Patient Appearance: Unkempt Mood: Apprehensive Affect: Mood Congruent Patient Behavior: Cooperative Speech Pattern: Appropriate Voice Loudness: Normal Thought Process: Circumstantial, Goal Oriented Thought Disorder: Being Controlled Hallucinations: Denies Suicidal Ideation: Denies Homicidal Ideation: Denies Insight/Judgement: Fair Sleep: Difficulty falling asleep Appetite: Weight loss Muscle strength/Tone: Normal Gait/Station: Normal Additional Comments: Zyprexa 20mg po qhs Psychiatric Findings - Problem List ([place] 1, 2,3) (1) Alcohol dependence with uncomplicated withdrawal Current Visit: Yes Status: Chronic (2) Cocaine dependence Current Visit: No Status: Active (3) schizoaffective disorder Current Visit: No Status: Active (4) Alcohol abuse Current Visit: No Status: Acute (5) Alcohol dependence Current Visit: No Status: Acute (6) Drug-induced mood disorder Current Visit: No Status: Acute (7) Non compliance with medical treatment Current Visit: No Status: Acute (8) cannabis dependence Current Visit: No Status: Acute (9) Nicotine dependence Current Visit: No Status: Chronic Qualifiers: Nicotine product type: cigarettes Substance use status: uncomplicated Qualified Code(s): F17.210 - Nicotine dependence, cigarettes, uncomplicated - Initial Treatment Plan Initial Treatment Plan: Zyprexa 20mg po qhs
[2016-12-01] MEDS ORDERED: OLANZapine 10 MG TABLET PO SCH (22:00)
[2016-12-01] MEDS: THIAMINE HCL 100 MG TABLET (FP) PO SCH (22:38)
[2016-12-01] MEDS: IBUPROFEN 400 MG TABLET (FP) PO PRN (22:38)
[2016-12-01] MEDS: chlordiazePOXIDE HCL 10 MG CAPSULE PO SCH (22:38)
[2016-12-02] MEDS: chlordiazePOXIDE HCL 10 MG CAPSULE PO SCH (05:41)
--- NOTE | 2016-12-02 09:04 | PN ---
S Progress Note (SOAP) Subjective: ALERT,NO COMPLAINT Objective: 12/02/16 09:02 Vital Signs Temperature 96.4 F L 12/02/16 06:00 Pulse Rate 68 12/02/16 06:00 Respiratory Rate 18 12/02/16 06:00 Blood Pressure 141/81 12/02/16 06:00 O2 Sat by Pulse Oximetry (%) 12/02/16 09:02 Laboratory Results - last 24 hr 12/01/16 07:00 WBC 3.2 L D RBC 3.21 L Hgb 10.0 L Hct 30.2 L MCV 94.2 MCHC 32.9 RDW 14.4 Plt Count 72 L MPV 10.1 Neutrophils % 45.2 D Lymphocytes % 34.3 D Monocytes % 17.3 H Eosinophils % 2.5 Basophils % 0.7 12/02/16 09:03 Assessment: 12/02/16 09:02 DETOX COMPLETED,NO WITHDRAWAL SYMPTOM 12/02/16 09:03 12/02/16 09:03 Plan: DISCHARGE TODAY,FOLLOW UP WITH AFTER CARE PROGRAM ARRANGEMENT
--- NOTE | 2016-12-02 09:07 | DS ---
[facility] Detox Discharge Summary Admission Date: 11/28/16 Discharge Date: 12/02/16 - History Present History: Alcohol Dependence Additional Comments: FOLLOW UP WITH PMD FOR MEDICAL PROBLEM Pertinent Past History: NICOTINE DEPENDENCE - Physical Exam Results Vital Signs: Vital Signs Temperature 96.4 F L 12/02/16 06:00 Pulse Rate 68 12/02/16 06:00 Respiratory Rate 18 12/02/16 06:00 Blood Pressure 141/81 12/02/16 06:00 O2 Sat by Pulse Oximetry (%) Pertinent Admission Physical Exam Findings: WITHDRAWAL SYMPTOM - Treatment Hospital Course: Detox Protocol Followed, Detoxed Safely, Responded well, Discharged Condition Good Patient has Accepted a Rehab Referral to: DECLINED - Medication Discharge Medications: Ambulatory Orders Olanzapine [Zyprexa -] 20 mg PO HS #30 tablet 12/01/16 - Diagnosis (1) Alcohol dependence with uncomplicated withdrawal Current Visit: Yes Status: Chronic (2) syncope alcohol related Current Visit: No Status: Active (3) Nicotine dependence Current Visit: No Status: Chronic Qualifiers: Nicotine product type: cigarettes Substance use status: uncomplicated Qualified Code(s): F17.210 - Nicotine dependence, cigarettes, uncomplicated - AMA Did Patient Leave Against Medical Advice: No
[2016-12-02] MEDS: PRENATAL VITAMINS W/ FOLIC ACID TABLET (FP) PO SCH (09:12)
[2016-12-02 09:36] VITALS: BP 155/93; PULSE 76; TEMP 97.3
== END 2016-12-02 09:16 | disposition home or self-care (01) | DRG 775 ==
LOC: YASAS 20:55 → Y6N 21:22
PROVIDERS: ADMIT Internal Medicine; ATTEND Internal Medicine
PROC: HZ2ZZZZ Detoxification Services for Substance Abuse Treatment (ICD-10-PCS; principal; 2016-11-28)
DX: F10.230 Alcohol dependence with withdrawal, uncomplicated (principal); F17.210 Nicotine dependence, cigarettes, uncomplicated; F25.9 Schizoaffective disorder, unspecified; F19.24 Other psychoactive substance dependence with psychoactive substance-induced mood disorder; R73.03 Prediabetes; R00.0 Tachycardia, unspecified; Z86.79 Personal history of other diseases of the circulatory system; Z86.69 Personal history of other diseases of the nervous system and sense organs; Z87.898 Personal history of other specified conditions; Z91.19 Patient's noncompliance with other medical treatment and regimen
CPT/HCPCS: 36415; 80053; 81003; 85025; 85027; 86593; 86803; 87389; 93005; 93010

== ENCOUNTER 2016-12-14 18:13 | Emergency (ER) | payer OTHER ==
[2016-12-14] MEDS ORDERED: SODIUM CHLORIDE 1,000 ML IV SCH (18:30)
[2016-12-14 18:31] VITALS: TEMP 98.6; BMI 29.0
--- NOTE | 2016-12-14 18:33 | PDOC ---
History of Present Illness - General Chief Complaint: Alcohol intoxication Stated Complaint: INTOX Time Seen by Provider: 12/14/16 18:19 History Source: Patient Exam Limitations: Intoxication - History of Present Illness Initial Comments: 12/14/16 18:33 The patient is a 56 M who was brought in by EMS for intoxication. He states that he is diabetic but cannot recall other medical problems. He was previously in rehab for alcohol, nicotine, and other substance abuse. He states that he drinks 18 beers/day and 1 pint of liquor. ROS+: bruising from falls, myalgias. ROS-: headache, fever, chills, nausea, vomiting, diarrhea, constipation. Allergies: NKDA Social: Alcohol abuse, 10 cigs/day, no drug abuse Past History - Past Medical History Allergies/Adverse Reactions: Allergies Allergy/AdvReac Type Severity Reaction Status Date / Time No Known Allergies Allergy Verified 12/14/16 18:29 Home Medications: Ambulatory Orders Olanzapine [Zyprexa -] 20 mg PO HS #30 tablet 12/01/16 Anemia: No Asthma: No Cancer: No Cardiac Disorders: No CVA: No COPD: No CHF: No Dementia: No Diabetes: No GI Disorders: No Disorders: No HTN: No Hypercholesterolemia: No Kidney Stones: No Liver Disease: No Suicide Attempt (Hx): No Seizures: No Thyroid Disease: No Other medical history: alcoholic - Surgical History Abdominal Surgery: No Appendectomy: No Cardiac Surgery: No Cholecystectomy: No Lung Surgery: No Neurologic Surgery: No Orthopedic Surgery: Yes (LT KNEE SX) - Reproductive History Testicular Surgery: No - Immunization History Immunization Up to Date: No - Psycho/Social/Smoking Cessation Hx Anxiety: No Suicidal Ideation: No Smoking Status: Yes Smoking History: Current some day smoker Have you smoked in the past 12 months: Yes Number of Cigarettes Smoked Daily: 10 Cigars Per Day: 0 Information on smoking cessation initiated: Yes 'Breaking Loose' booklet given: 12/14/16 Hx Alcohol Use: Yes (daily) Drug/Substance Use Hx: No Substance Use Type: Alcohol Hx Substance Use Treatment: Yes Review of Systems - Review of Systems Able to Perform ROS?: Yes Constitutional: No: Chills, Fever Respiratory: No: Shortness of Breath Cardiac (ROS): No: Chest Pain ABD/GI: Yes: Other (abd pain) Integumentary: Yes: Bruising Neurological: No: Headache *Physical Exam - Vital Signs Last Vital Signs Temp Pulse Resp BP Pulse Ox 98.6 F 86 16 142/85 96 12/14/16 18:29 12/14/16 18:29 12/14/16 18:29 12/14/16 18:29 12/14/16 18:29 - Physical Exam General Appearance: Yes: Disheveled, Alcohol on Breath, Intoxicated HEENT: negative: Scleral Icterus (R), Scleral Icterus (L) Respiratory/Chest: positive: Lungs Clear, Normal Breath Sounds. negative: Respiratory Distress, Labored Respiration Cardiovascular: positive: Regular Rhythm, Regular Rate Gastrointestinal/Abdominal: positive: Normal Bowel Sounds, Flat, Soft. negative : Tender, Tenderness Extremity: negative: Swelling Neurologic: positive: Other (Intoxicated. Slurring speech.). negative: Fully Oriented ED Treatment Course - LABORATORY CBC & Chemistry Diagram: 12/14/16 18:26 12/14/16 18:26 Medical Decision Making - Medical Decision Making 12/14/16 19:40 The patient is a 56M known alcoholic who presents to the ED intoxicated. We have drawn labs to check electrolyte status. He is slurring his speech and is intoxicated. Will monitor patient's status and labs. 12/14/16 21:00 Checked on the patient. He was sleeping and when woken up, expressed that he wanted to "hang out". He was given food and has fluids running. 12/14/16 22:09 Patient signed out to Dr. Farfan. *DC/Admit/Observation/Transfer - Attestations Physician Attestion: 12/14/16 19:41 I, Dr. Javon Rodriguez, attest that this document has been prepared under my direction and personally reviewed by me in its entirety. I further attest, that it accurately reflects all work, treatment, procedures and medical decision -making performed by me.
[2016-12-14 18:44] LABS: EOSINOPHIL 1.4 % (0-4.5); MCH 30.8 pg (25.7-33.7); MCHC 33.1 g/dl (32.0-35.9); MEAN CELL VOLUME 93.1 fl (80-96); MEAN PLT VOLUME 7.6 fl (7.5-11.1); NEUTROPHILS 56.7 % (42.8-82.8); PLATELET COUNT 229 K/MM3 (134-434); RDW 15.5 % (11.9-15.9)
[2016-12-14 19:06] LABS: ALBUMIN 3.8 g/dl (3.4-5.0); ALK PHOS 101 U/L (45-117); ANION GAP 11 (8-16); BILIRUBIN,TOTAL 0.7 mg/dL (0.2-1.0); CALCIUM 8.8 mg/dL (8.5-10.1); CO2 27 mmol/L (21-32); CREATININE 0.6 mg/dL (0.7-1.3); GLUCOSE,RANDOM 101 mg/dL (74-106); SGOT/AST 78 U/L (15-37); SGPT/ALT 43 U/L (12-78); TOT PROT 7.9 g/dl (6.4-8.2)
[2016-12-15 02:05] VITALS: BP 106/83; PULSE 76
--- NOTE | 2016-12-15 07:16 | PDOC ---
*Physical Exam - Vital Signs Last Vital Signs Temp Pulse Resp BP Pulse Ox 98.6 F 76 17 106/83 95 12/14/16 18:29 12/15/16 02:02 12/15/16 02:02 12/15/16 02:02 12/15/16 02:02 ED Treatment Course - LABORATORY CBC & Chemistry Diagram: 12/14/16 18:26 12/14/16 18:26 - ADDITIONAL ORDERS Additional order review: 12/14/16 18:26 RBC 3.62 L MCV 93.1 MCHC 33.1 RDW 15.5 MPV 7.6 D Neutrophils % 56.7 D Lymphocytes % 31.5 Monocytes % 9.4 Eosinophils % 1.4 Basophils % 1.0 Medical Decision Making - Medical Decision Making Patient was discharged on previous shift however the DC paperwork was not filed. *DC/Admit/Observation/Transfer Diagnosis at time of Disposition: Alcohol dependence, Alcohol intoxication - Discharge Dispostion Disposition: HOME Condition at time of disposition: Improved Admit: No - Patient Instructions Printed Discharge Instructions: DI for Alcohol Abuse
== END 2016-12-15 07:15 | disposition home or self-care (01) ==
LOC: JER 18:13
PROC: 3E0337Z Introduction of Electrolytic and Water Balance Substance into Peripheral Vein, Percutaneous Approach (ICD-10-PCS; principal; 2016-12-14)
DX: F10.220 Alcohol dependence with intoxication, uncomplicated (principal); Y90.8 Blood alcohol level of 240 mg/100 ml or more
CPT/HCPCS: 36415; 80053; 80307; 85025; 96360; 96361; 99284-25

== ENCOUNTER 2017-02-24 22:59 | Inpatient (IN) | payer OTHER ==
--- NOTE | 2017-02-24 23:22 | HP ---
CIWA Score - CIWA Score Nausea/Vomitin-Mild Nausea/No Vomiting Muscle Tremors: 4-Moderate,w/Arms Extend Anxiety: 4-Mod. Anxious/Guarded Agitation: 4-Moderately Restless Paroxysmal Sweats: 1-Minimal Palms Moist Orientation: 1-Uncertain about Date Tacttile Disturbances: 0-None Auditory Disturbances: 0-None Visual Disturbances: 0-None Headache: 2-Mild CIWA-Ar Total Score: 17 Admission ROS BHS - HPI Chief Complaint: C/O WITHDRAWAL SX'S. SEEKING DETOX TXMENT Allergies/Adverse Reactions: Allergies Allergy/AdvReac Type Severity Reaction Status Date / Time No Known Allergies Allergy Verified 12/14/16 18:29 History of Present Illness: 56 Y.O MALE WITH LONG H/O ALCOHOLISM ADMITTED TO DETOX. DENIES RECENT DETOX SINCE LAST VISIT. SELF REFERRED. REPORTS LONGEST CLEAN TIME 1 YEAR. CLIENT IS PRESENTLY ON CLINICAL CONCERNS LIST FOR AMA. D/W CLIENT ABOUT COMPLIANCE AND COMPLETING TXMENT. CLIENT VERBALIZED UNDERSTANDING. COMPLETED TXMENT ON LAST VISIT Exam Limitations: Intoxication - Ebola screening Have you traveled outside of the country in the last 21 days: No Have you had contact with anyone from an Ebola affected area: No Do you have a fever: No - Review of Systems Constitutional: Chills, Loss of Appetite, Night Sweats, Changes in sleep, Unintentional Wgt. Loss EENT: reports: Dental Problems (POOR DENTITION) Respiratory: reports: No Symptoms reported Cardiac: reports: No Symptoms Reported GI: reports: Nausea, Poor Appetite, Poor Fluid Intake, Abdominal cramping : reports: No Symptoms Reported Musculoskeletal: reports: No Symptoms Reported Integumentary: reports: No Symptoms Reported Neuro: reports: Headache, Tremors Endocrine: reports: No Symptoms Reported Hematology: reports: No Symptoms Reported Psychiatric: reports: Anxious, Depressed Other Systems: Reviewed and Negative Patient History - Patient Medical History Hx Anemia: No Hx Asthma: No Hx Chronic Obstructive Pulmonary Disease (COPD): No Hx Cancer: No Hx Cardiac Disorders: No Hx Congestive Heart Failure: No Hx Hypertension: No Hx Hypercholesterolemia: No Hx Pacemaker: No HX Cerebrovascular Accident: No Hx Seizures: No Hx Dementia: No Hx Diabetes: No Hx Gastrointestinal Disorders: No Hx Liver Disease: No Hx Genitourinary Disorders: No Hx Sexually Transmitted Disorders: No Hx Renal Disease (ESRD): No Hx Thyroid Disease: No Hx Human Immunodeficiency Virus (HIV): No Hx Hepatitis C: No Hx Depression: Yes Hx Suicide Attempt: No Hx Bipolar Disorder: No Hx Schizophrenia: No Other Medical History: DENIES - Patient Surgical History Past Surgical History: Yes Hx Neurologic Surgery: No Hx Cataract Extraction: No Hx Cardiac Surgery: No Hx Lung Surgery: No Hx Breast Surgery: No Hx Breast Biopsy: No Hx Abdominal Surgery: No Hx Appendectomy: No Hx Cholecystectomy: No Hx Genitourinary Surgery: No Hx Section: No Hx Orthopedic Surgery: Yes (LT KNEE SX) Anesthesia Reaction: No - PPD History Previous Implant?: Yes Documented Results: Positive w/o proof Implanted On Prior [facility] Admission?: No Results: CXR 01/26 NEG PPD to be Administered?: No - Smoking Cessation Smoking history: Current some day smoker Have you smoked in the past 12 months: Yes Aproximately how many cigarettes per day: 10 Cigars Per Day: 0 Hx Chewing Tobacco Use: No Initiated information on smoking cessation: Yes 'Breaking Loose' booklet given: 02/24/17 - Substance & Tx. History Hx Alcohol Use: Yes Hx Substance Use: No Substance Use Type: Alcohol Hx Substance Use Treatment: Yes ([facility]) Family Disease History - Family Disease History Family Disease History: Other: Brother (alcohol,dsa) Admission Physical Exam BHS - Physical General Appearance: Yes: Alcohol on Breath, Intoxicated, Tremorous, Anxious HEENTM: Yes: EOMI, Normocephalic, Pharynx Normal, Other (MISSING TEETH) Respiratory: Yes: Chest Non-Tender, Lungs Clear, Normal Breath Sounds, No Respiratory Distress, No Accessory Muscle Use Neck: Yes: No masses,lesions,Nodules, Supple, Trachea in good position Breast: Yes: Breast Exam Deferred Cardiology: Yes: Regular Rhythm, Regular Rate, S1, S2 Abdominal: Yes: Normal Bowel Sounds, Non Tender, Soft Genitourinary: Yes: Within Normal Limits Back: Yes: Normal Inspection Musculoskeletal: Yes: full range of Motion Extremities: Yes: Normal Range of Motion, Non-Tender, Tremors Neurological: Yes: Alert, Motor Strength 5/5 Integumentary: Yes: Warm, Other (FLUSHED) Lymphatic: Yes: Within Normal Limits - Diagnostic (1) Alcohol dependence with uncomplicated withdrawal Current Visit: Yes Status: Chronic (2) Nicotine dependence Current Visit: Yes Status: Chronic Qualifiers: Nicotine product type: cigarettes Substance use status: uncomplicated Qualified Code(s): F17.210 - Nicotine dependence, cigarettes, uncomplicated Cleared for Admission [facility] - Detox or Rehab [facility] Level of Care: Medically Managed Detox Regimen/Protocol: Librium [facility] Breath Alcohol Content Breath Alcohol Content: 0.355
[2017-02-24] MEDS ORDERED: P-EPHED 60MG/TRIPROLIDI 2.5MG TABLET PO PRN (23:29)
[2017-02-24] MEDS ORDERED: MAGNESIUM HYDROX 2400MG/30ML ORAL SUSPENSION 30 ML CUP PO PRN (23:29)
[2017-02-24] MEDS ORDERED: guaiFENesin/D-METHORPHAN HB 10 ML UNIT-DOSE CUPS PO PRN (23:29)
[2017-02-24] MEDS ORDERED: LOPERAMIDE HCL 2 MG CAPSULE PO PRN (23:29)
[2017-02-24] MEDS ORDERED: MENTHOL/PHENOL 1 EACH UD MM PRN (23:29)
[2017-02-24] MEDS ORDERED: hydrOXYzine PAMOATE 50 MG CAPSULE (FP) PO PRN (23:29)
[2017-02-24] MEDS ORDERED: MAGNESIUM CITRATE 300 ML BOTTLE PO PRN (23:29)
[2017-02-24] MEDS ORDERED: chlordiazePOXIDE HCL 25 MG CAPSULE PO PRN (23:29)
[2017-02-24] MEDS ORDERED: MAG HYDROX/AL HYDROX/SIMETH 30 ML UNIT-DOSE CUP PO PRN (23:29)
[2017-02-25] MEDS: chlordiazePOXIDE HCL 25 MG CAPSULE PO SCH ×5 (01:22→22:06)
[2017-02-25] MEDS: diphenhydrAMINE HCL 50 MG CAPSULE PO PRN ×2 (01:28→22:06)
[2017-02-25 09:52] LABS: MCH 30.5 pg (25.7-33.7); MCHC 33.6 g/dl (32.0-35.9); MEAN CELL VOLUME 90.7 fl (80-96); MEAN PLT VOLUME 8.3 fl (7.5-11.1); PLATELET COUNT 95 K/MM3 (134-434); RDW 14.7 % (11.9-15.9)
[2017-02-25 10:07] LABS: ALBUMIN 3.1 g/dl (3.4-5.0); ALK PHOS 81 U/L (45-117); ANION GAP 9 (8-16); BILIRUBIN,TOTAL 0.5 mg/dL (0.2-1.0); CALCIUM 8.3 mg/dL (8.5-10.1); CO2 27 mmol/L (21-32); CREATININE 0.6 mg/dL (0.7-1.3); GLUCOSE,RANDOM 63 mg/dL (74-106); SGOT/AST 41 U/L (15-37); SGPT/ALT 29 U/L (12-78); TOT PROT 6.7 g/dl (6.4-8.2)
[2017-02-25] MEDS: PRENATAL VITAMINS W/ FOLIC ACID TABLET (FP) PO SCH (10:10)
[2017-02-25] MEDS: NICOTINE 14 MG/24 HOURS TOPICAL PATCH TD SCH (10:10)
[2017-02-25 10:15] LABS: WHITE BLOOD COUNT 1.9 K/mm3 (4.0-10.0)
[2017-02-25 10:38] LABS: HIV 1 & 2 AB NEGATIVE; HIV 1 AGp24 NEGATIVE
--- NOTE | 2017-02-25 11:27 | PN ---
[facility] CIWA - CIWA Score Nausea/Vomitin-Mild Nausea/No Vomiting Muscle Tremors: 3 Anxiety: 4-Mod. Anxious/Guarded Agitation: 3 Paroxysmal Sweats: No Perspiration Orientation: 2-Disoriented Date<2 days Tacttile Disturbances: 2-Mild Itch/Numbness/Burn Auditory Disturbances: 0-None Visual Disturbances: 2-Mild Sensitivity Headache: 0-None Present CIWA-Ar Total Score: 17 S Progress Note (SOAP) Subjective: Body Aches, Tremors, Interrupted sleep. Objective: PT. A & O X 2 (DISORIENTED ABOUT DAY /DATE). NO ACUTE DISTRESS. 02/25/17 11:24 Vital Signs Temperature 98.3 F 02/25/17 11:16 Pulse Rate 85 02/25/17 11:16 Respiratory Rate 18 02/25/17 11:16 Blood Pressure 129/85 02/25/17 11:16 O2 Sat by Pulse Oximetry (%) Laboratory Tests 02/25/17 02/25/17 02/25/17 07:50 07:50 07:50 WBC 1.9 L* D RBC 3.51 L Hgb 10.7 L Hct 31.8 L MCV 90.7 MCH 30.5 MCHC 33.6 RDW 14.7 Plt Count 95 L D MPV 8.3 Sodium 139 Potassium 3.8 Chloride 103 Carbon Dioxide 27 Anion Gap 9 BUN 9 Creatinine 0.6 L Creat Clearance w eGFR > 60 Random Glucose 63 L D Calcium 8.3 L Total Bilirubin 0.5 D AST 41 H D ALT 29 D Alkaline Phosphatase 81 Total Protein 6.7 Albumin 3.1 L HIV 1&2 Antibody Screen Negative HIV P24 Antigen Negative LABS NOTED. PATIENT HAS HAD LOW WBC LEVELS ON SEVERAL PREVIOUS ADMISSIONS. RPR RESULT PENDING. 02/25/17 11:29 02/25/17 11:30 Assessment: 02/25/17 11:24 WITHDRAWAL SYMPTOMS. Plan: CONTINUE DETOX. REPEAT CBC ON 02/27/2017 FOR ABNORMAL ADMISSION VALUES. FEOSOL, 325 MG PO TIDCM
[2017-02-25] MEDS ORDERED: FLU VACCINE QUAD 60 MCG/0.5 ML (MDV 17-18) IM ONE (12:00)
[2017-02-25 12:50] LABS: HYPOCHROMIA 3+; TARGET CELLS 3+; TOTAL CELLS COUNTED 100
--- NOTE | 2017-02-25 13:28 | CONSULT ---
[facility] Psychiatric Consult - Data Date of interview: 02/25/17 Admission source: Self-referred Identifying data: Mr Myles is a 56 years old single Black male, father of an 18 years old son, unemployed on SSI, homeless seeking detox treatment for alcohol Substance Abuse History: Reports one previous psychiatric admission to [facility] in [place], [place] more than 15 years ago. Reports that he was diagnosed with depression and prescribed Zyprexa. Reports that from [id number], he saw Dr Do at the [facility] and was prescribed Zyprexa. Since then he only took that medication when admitted to inpatient detox in this facility and stopped taking following discharge. 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 Medical History: Significant for +PPD and history of orthosurgery for repair of ligament left knee. Smokes 10 cigarettes daily Physical/Sexual Abuse/Trauma History: Denies history of emotional, physical or sexual abuse as well as DV relationship Additional Comment: Reports history of previous arrests including 4 felony convictions. Denies parole/probation at present Mental Status Exam - Mental Status Exam Alert and Oriented to: Place, Person Cognitive Function: Fair Patient Appearance: Disheveled Mood: Depressed (mildly) Patient Behavior: Cooperative Speech Pattern: Clear Voice Loudness: Normal Thought Process: Intact, Goal Oriented Thought Disorder: Not Present Hallucinations: Denies Suicidal Ideation: Denies Homicidal Ideation: Denies Insight/Judgement: Fair Sleep: Poorly Appetite: Poor Muscle strength/Tone: Normal Gait/Station: Normal Psychiatric Findings - Problem List ([place] 1, 2,3) (1) Alcohol-induced mood disorder Current Visit: No Status: Acute (2) Alcohol-induced sleep disorder Current Visit: Yes Status: Acute (3) Alcohol dependence with uncomplicated withdrawal Current Visit: Yes Status: Chronic (4) Nicotine dependence Current Visit: Yes Status: Chronic Qualifiers: Nicotine product type: cigarettes Substance use status: uncomplicated Qualified Code(s): F17.210 - Nicotine dependence, cigarettes, uncomplicated - Initial Treatment Plan Initial Treatment Plan: 1) Start Ambien 10 mg po HS prn for insomnia. 2) Continue inpatient detoxification
[2017-02-25] MEDS: FERROUS SO4 325 MG TABLET (FP) PO SCH ×2 (13:42→17:10)
[2017-02-25] MEDS: THIAMINE HCL 100 MG TABLET (FP) PO SCH (22:06)
[2017-02-26] MEDS: chlordiazePOXIDE HCL 25 MG CAPSULE PO SCH ×3 (05:24→17:18)
[2017-02-26] MEDS: PRENATAL VITAMINS W/ FOLIC ACID TABLET (FP) PO SCH (10:17)
[2017-02-26] MEDS: FERROUS SO4 325 MG TABLET (FP) PO SCH ×3 (10:18→17:18)
[2017-02-26] MEDS: NICOTINE 14 MG/24 HOURS TOPICAL PATCH TD SCH (10:18)
[2017-02-26] MEDS: IBUPROFEN 400 MG TABLET (FP) PO PRN ×2 (14:51→19:54)
--- NOTE | 2017-02-26 15:34 | PN ---
[facility] CIWA - CIWA Score Nausea/Vomitin-Mild Nausea/No Vomiting Muscle Tremors: 4-Moderate,w/Arms Extend Anxiety: 4-Mod. Anxious/Guarded Agitation: 3 Paroxysmal Sweats: 3 Orientation: 2-Disoriented Date<2 days Tacttile Disturbances: 0-None Auditory Disturbances: 0-None Visual Disturbances: 1-Very Mild Sensitivity Headache: 0-None Present CIWA-Ar Total Score: 18 S Progress Note (SOAP) Subjective: Interrupted sleep, Tremors, Sweating. Objective: PT. A & O X 2 (DISORIENTED ABOUT DAY / DATE). PT. OBSERVED AMBULATING ON UNIT. NO ACUTE DISTRESS. 02/26/17 15:35 Vital Signs Temperature 96.9 F L 02/26/17 15:13 Pulse Rate 66 02/26/17 15:13 Respiratory Rate 18 02/26/17 15:13 Blood Pressure 140/89 02/26/17 15:13 O2 Sat by Pulse Oximetry (%) Laboratory Tests 02/25/17 02/25/17 02/25/17 07:50 07:50 07:50 WBC 1.9 L* D RBC 3.51 L Hgb 10.7 L Hct 31.8 L MCV 90.7 MCH 30.5 MCHC 33.6 RDW 14.7 Plt Count 95 L D MPV 8.3 Total Counted 100 Neutrophils % (Manual) 30 L Lymphocytes % (Manual) 60 H Monocytes % (Manual) 6 Eosinophils % (Manual) 4 Hypochromia 3+ Target Cells 3+ Sodium 139 Potassium 3.8 Chloride 103 Carbon Dioxide 27 Anion Gap 9 BUN 9 Creatinine 0.6 L Creat Clearance w eGFR > 60 Random Glucose 63 L D Calcium 8.3 L Total Bilirubin 0.5 D AST 41 H D ALT 29 D Alkaline Phosphatase 81 Total Protein 6.7 Albumin 3.1 L RPR Titer Nonreactive HIV 1&2 Antibody Screen HIV P24 Antigen 02/25/17 07:50 WBC RBC Hgb Hct MCV MCH MCHC RDW Plt Count MPV Total Counted Neutrophils % (Manual) Lymphocytes % (Manual) Monocytes % (Manual) Eosinophils % (Manual) Hypochromia Target Cells Sodium Potassium Chloride Carbon Dioxide Anion Gap BUN Creatinine Creat Clearance w eGFR Random Glucose Calcium Total Bilirubin AST ALT Alkaline Phosphatase Total Protein Albumin RPR Titer HIV 1&2 Antibody Screen Negative HIV P24 Antigen Negative LABS NOTED. UA RESULTS PENDING. PATIENT REPORTS POSSIBLE HISTORY OF GOUT (ALTHOUGH HE IS NOT CERTAIN FOR SURE). URIC ACID LEVEL ORDERED. 02/26/17 15:37 02/26/17 15:38 Assessment: 02/26/17 15:36 WITHDRAWAL SYMPTOMS. Plan: CONTINUE DETOX.
[2017-02-26 17:44] LABS: URINE APPEARANCE SLCLOUDY; URINE BILIRUBIN NEGATIVE (NEGATIVE); URINE BLOOD NEGATIVE (NEGATIVE); URINE COLOR YELLOW; URINE GLUCOSE (UA) NEGATIVE (NEGATIVE); URINE KETONE NEGATIVE (NEGATIVE); URINE LEUK ESTERASE NEGATIVE (NEGATIVE); URINE NITRITE NEGATIVE (NEGATIVE); URINE PROTEIN NEGATIVE (NEGATIVE); URINE UROBILINOGEN NEGATIVE mg/dL (0.2-1.0)
[2017-02-26] MEDS: chlordiazePOXIDE 5 MG CAPSULE PO SCH (22:18)
[2017-02-26] MEDS: ZOLPIDEM TARTRATE 10 MG TABLET (PARK CARE ONLY) PO PRN (22:18)
[2017-02-26] MEDS: THIAMINE HCL 100 MG TABLET (FP) PO SCH (22:18)
[2017-02-27] MEDS: chlordiazePOXIDE 5 MG CAPSULE PO SCH ×3 (05:29→16:58)
[2017-02-27] MEDS: ACETAMINOPHEN 325 MG TABLET (FP) PO PRN ×2 (05:29→22:08)
[2017-02-27] MEDS: IBUPROFEN 400 MG TABLET (FP) PO PRN ×2 (10:09→17:00)
[2017-02-27] MEDS: NICOTINE 14 MG/24 HOURS TOPICAL PATCH TD SCH (10:10)
[2017-02-27] MEDS: FERROUS SO4 325 MG TABLET (FP) PO SCH ×3 (10:10→16:58)
[2017-02-27] MEDS: PRENATAL VITAMINS W/ FOLIC ACID TABLET (FP) PO SCH (10:10)
--- NOTE | 2017-02-27 17:52 | PN ---
B[facility] Progress Note (SOAP) Subjective: Sweating, nausea, anxious, restless Objective: 02/27/17 17:49 Last Vital Signs Temp Pulse Resp BP Pulse Ox 98.0 F 67 18 152/87 02/27/17 13:45 02/27/17 13:45 02/27/17 13:45 02/27/17 13:45 Laboratory Tests 02/25/17 02/25/17 02/25/17 07:50 07:50 07:50 WBC 1.9 L* D RBC 3.51 L Hgb 10.7 L Hct 31.8 L MCV 90.7 MCH 30.5 MCHC 33.6 RDW 14.7 Plt Count 95 L D MPV 8.3 Total Counted 100 Neutrophils % (Manual) 30 L Lymphocytes % (Manual) 60 H Monocytes % (Manual) 6 Eosinophils % (Manual) 4 Hypochromia 3+ Target Cells 3+ Sodium 139 Potassium 3.8 Chloride 103 Carbon Dioxide 27 Anion Gap 9 BUN 9 Creatinine 0.6 L Creat Clearance w eGFR > 60 Random Glucose 63 L D Calcium 8.3 L Total Bilirubin 0.5 D AST 41 H D ALT 29 D Alkaline Phosphatase 81 Total Protein 6.7 Albumin 3.1 L Urine Color Urine Appearance Urine pH Ur Specific [place] Urine Protein Urine Glucose (UA) Urine Ketones Urine Blood Urine Nitrite Urine Bilirubin Urine Urobilinogen RPR Titer Nonreactive HIV 1&2 Antibody Screen HIV P24 Antigen 02/25/17 02/26/17 07:50 17:20 WBC RBC Hgb Hct MCV MCH MCHC RDW Plt Count MPV Total Counted Neutrophils % (Manual) Lymphocytes % (Manual) Monocytes % (Manual) Eosinophils % (Manual) Hypochromia Target Cells Sodium Potassium Chloride Carbon Dioxide Anion Gap BUN Creatinine Creat Clearance w eGFR Random Glucose Calcium Total Bilirubin AST ALT Alkaline Phosphatase Total Protein Albumin Urine Color Yellow Urine Appearance Slcloudy Urine pH 7.0 D Ur Specific [place] 1.015 Urine Protein Negative Urine Glucose (UA) Negative Urine Ketones Negative Urine Blood Negative Urine Nitrite Negative Urine Bilirubin Negative Urine Urobilinogen Negative RPR Titer HIV 1&2 Antibody Screen Negative HIV P24 Antigen Negative Labs noted: abnormal cbc Assessment: 02/27/17 17:50 Withdrawal symptoms Noted with pancytopenia Plan: Continue detox Pancytopenia: ordered for repeated cbc but patient refused stating he will follow up with his PCP. Patient requesting copy of his blood work upon discharge to bring to his PCP. Encouraged good hand hygiene (wash hands with soap and water) before eating and after using restroom.
[2017-02-27] MEDS: THIAMINE HCL 100 MG TABLET (FP) PO SCH (22:08)
[2017-02-27] MEDS: chlordiazePOXIDE HCL 10 MG CAPSULE PO SCH (22:08)
[2017-02-27] MEDS: ZOLPIDEM TARTRATE 10 MG TABLET (PARK CARE ONLY) PO PRN (22:08)
[2017-02-28] MEDS: chlordiazePOXIDE HCL 10 MG CAPSULE PO SCH (05:06)
[2017-02-28] MEDS: ACETAMINOPHEN 325 MG TABLET (FP) PO PRN (05:06)
[2017-02-28 06:03] VITALS: BP 145/84; PULSE 64; TEMP 97.1
--- NOTE | 2017-02-28 06:44 | PN ---
[facility] Progress Note Note: MD'S NOTE: INFORMED 6:40AM THAT THE PT. WANTS TO GO HOME NOW INSTEAD 8:00AM TO TAKE CARE OF THE CHILDREN PLEASE NOTE: HE IS SCHEDULED TO BE DISCHARGED AT 8:00AM SO, AT THIS TIME HE IS STABLE TO GO HOME AND WAS DISCHARGED. PROVIDER: LYLE RODRIGUEZ MD
--- NOTE | 2017-02-28 08:57 | DS ---
[facility] Detox Discharge Summary Admission Date: 02/24/17 Discharge Date: 02/28/17 - History Present History: Alcohol Dependence, Cocaine Dependence Pertinent Past History: Mood disorder - Physical Exam Results Vital Signs: Vital Signs Temperature 97.1 F L 02/28/17 06:02 Pulse Rate 64 02/28/17 06:02 Respiratory Rate 16 02/28/17 06:02 Blood Pressure 145/84 02/28/17 06:02 O2 Sat by Pulse Oximetry (%) Pertinent Admission Physical Exam Findings: Withdrawal sx. Laboratory Last Values WBC 1.9 K/mm3 (4.0-10.0) L* D 02/25/17 07:50 RBC 3.51 M/mm3 (4.00-5.60) L 02/25/17 07:50 Hgb 10.7 GM/dL (11.7-16.9) L 02/25/17 07:50 Hct 31.8 % (35.4-49) L 02/25/17 07:50 MCV 90.7 fl (80-96) 02/25/17 07:50 MCH 30.5 pg (25.7-33.7) 02/25/17 07:50 MCHC 33.6 g/dl (32.0-35.9) 02/25/17 07:50 RDW 14.7 % (11.9-15.9) 02/25/17 07:50 Plt Count 95 K/MM3 (134-434) L D 02/25/17 07:50 MPV 8.3 fl (7.5-11.1) 02/25/17 07:50 Total Counted 100 02/25/17 07:50 Neutrophils % (Manual) 30 % (42.8-82.8) L 02/25/17 07:50 Lymphocytes % (Manual) 60 % (8-40) H 02/25/17 07:50 Monocytes % (Manual) 6 % (3.8-10.2) 02/25/17 07:50 Eosinophils % (Manual) 4 % (0-4.5) 02/25/17 07:50 Hypochromia 3+ 02/25/17 07:50 Target Cells 3+ 02/25/17 07:50 Sodium 139 mmol/L (136-145) 02/25/17 07:50 Potassium 3.8 mmol/L (3.5-5.1) 02/25/17 07:50 Chloride 103 mmol/L (98-107) 02/25/17 07:50 Carbon Dioxide 27 mmol/L (21-32) 02/25/17 07:50 Anion Gap 9 (8-16) 02/25/17 07:50 BUN 9 mg/dL (7-18) 02/25/17 07:50 Creatinine 0.6 mg/dL (0.7-1.3) L 02/25/17 07:50 Creat Clearance w eGFR > 60 (>60) 02/25/17 07:50 Random Glucose 63 mg/dL (74-106) L D 02/25/17 07:50 Calcium 8.3 mg/dL (8.5-10.1) L 02/25/17 07:50 Total Bilirubin 0.5 mg/dL (0.2-1.0) D 02/25/17 07:50 AST 41 U/L (15-37) H D 02/25/17 07:50 ALT 29 U/L (12-78) D 02/25/17 07:50 Alkaline Phosphatase 81 U/L (45-117) 02/25/17 07:50 Total Protein 6.7 g/dl (6.4-8.2) 02/25/17 07:50 Albumin 3.1 g/dl (3.4-5.0) L 02/25/17 07:50 Urine Color Yellow 02/26/17 17:20 Urine Appearance Slcloudy 02/26/17 17:20 Urine pH 7.0 (5.0-8.0) D 02/26/17 17:20 Ur Specific [place] 1.015 (1.005-1.025) 02/26/17 17:20 Urine Protein Negative (NEGATIVE) 02/26/17 17:20 Urine Glucose (UA) Negative (NEGATIVE) 02/26/17 17:20 Urine Ketones Negative (NEGATIVE) 02/26/17 17:20 Urine Blood Negative (NEGATIVE) 02/26/17 17:20 Urine Nitrite Negative (NEGATIVE) 02/26/17 17:20 Urine Bilirubin Negative (NEGATIVE) 02/26/17 17:20 Urine Urobilinogen Negative mg/dL (0.2-1.0) 02/26/17 17:20 RPR Titer Nonreactive (NONREACTIVE) 02/25/17 07:50 HIV 1&2 Antibody Screen Negative 02/25/17 07:50 HIV P24 Antigen Negative 02/25/17 07:50 labs noted - Treatment Hospital Course: Detox Protocol Followed, Detoxed Safely, Responded well, Discharged Condition Good, Rehab Referral Accepted Patient has Accepted a Rehab Referral to: IOP - Medication Discharge Medications: Ambulatory Orders Olanzapine [Zyprexa -] 20 mg PO HS #30 tablet 12/01/16 - Diagnosis (1) Alcohol-induced mood disorder Status: Acute (2) Alcohol dependence with uncomplicated withdrawal Status: Acute - AMA Did Patient Leave Against Medical Advice: No
--- NOTE | 2017-02-28 17:04 | EKG ---
Test Reason : Blood Pressure : / mmHG Vent. Rate : 078 BPM Atrial Rate : 078 BPM P-R Int : 182 ms QRS Dur : 098 ms QT Int : 406 ms P-R-T Axes : 065 070 070 degrees QTc Int : 462 ms NORMAL SINUS RHYTHM NORMAL ECG WHEN COMPARED WITH ECG OF 28-NOV-2016 21:23, NO SIGNIFICANT CHANGE WAS FOUND Confirmed by XENIA MUNGUIA MD ([id number]) on 02/28/2017 5:03:41 PM Referred By: Confirmed By:XENIA MUNGUIA MD
== END 2017-02-28 07:24 | disposition home or self-care (01) | DRG 775 ==
LOC: YASAS 22:59 → Y3N 23:35
PROVIDERS: ADMIT Internal Medicine; ATTEND Internal Medicine
PROC: HZ2ZZZZ Detoxification Services for Substance Abuse Treatment (ICD-10-PCS; principal; 2017-02-24)
DX: F10.230 Alcohol dependence with withdrawal, uncomplicated (principal); F17.210 Nicotine dependence, cigarettes, uncomplicated; F10.24 Alcohol dependence with alcohol-induced mood disorder; F10.282 Alcohol dependence with alcohol-induced sleep disorder
CPT/HCPCS: 36415; 71020-TC; 80053; 81003; 85027; 86593; 87389; 90688; 93005; 93010; G0008

== ENCOUNTER 2017-03-14 13:15 | Inpatient (IN) | payer OTHER ==
--- NOTE | 2017-03-14 13:22 | HP ---
CIWA Score - CIWA Score Nausea/Vomitin Muscle Tremors: 3 Anxiety: 3 Agitation: 3 Paroxysmal Sweats: 1-Minimal Palms Moist Orientation: 0-Oriented Tacttile Disturbances: 1-Very Mild Itch/Numbness Auditory Disturbances: 1-Very Mild Visual Disturbances: 0-None Headache: 2-Mild CIWA-Ar Total Score: 17 Admission ROS BHS - HPI Chief Complaint: i need help to stop drinking alcohol Allergies/Adverse Reactions: Allergies Allergy/AdvReac Type Severity Reaction Status Date / Time No Known Allergies Allergy Verified 03/14/17 13:32 History of Present Illness: this 57 years old male with alcohol dependenc,seeking detox,last treatment [facility] 02/24/17 to 02/28/17 syncope alcohol related nicotine dependence multiple admissions in the past longest period of sobriety 1 year Exam Limitations: No Limitations - Ebola screening Have you traveled outside of the country in the last 21 days: No Have you had contact with anyone from an Ebola affected area: No Do you have a fever: No - Review of Systems Constitutional: Loss of Appetite, Malaise, Night Sweats, Changes in sleep, Weakness EENT: reports: No Symptoms Reported Respiratory: reports: No Symptoms reported Cardiac: reports: Palpitations GI: reports: Nausea, Vomiting, Abdominal cramping : reports: No Symptoms Reported Musculoskeletal: reports: Muscle Pain Integumentary: reports: Dryness Neuro: reports: Tremors Endocrine: reports: No Symptoms Reported Hematology: reports: No Symptoms Reported Psychiatric: reports: other (schizoaffective disorder) Patient History - Patient Medical History Hx Anemia: No Hx Asthma: No Hx Chronic Obstructive Pulmonary Disease (COPD): No Hx Cancer: No Hx Cardiac Disorders: No Hx Congestive Heart Failure: No Hx Hypertension: No Hx Hypercholesterolemia: No Hx Pacemaker: No HX Cerebrovascular Accident: No Hx Seizures: No Hx Dementia: No Hx Diabetes: No Hx Gastrointestinal Disorders: No Hx Liver Disease: No Hx Genitourinary Disorders: No Hx Sexually Transmitted Disorders: No Hx Renal Disease (ESRD): No Hx Thyroid Disease: No Hx Human Immunodeficiency Virus (HIV): No (02/24/17 to 02/28/17 [facility]) Hx Hepatitis C: No Hx Depression: Yes Hx Suicide Attempt: No Hx Bipolar Disorder: No Hx Schizophrenia: No Other Medical History: no suicidal,no homicidal - Patient Surgical History Past Surgical History: Yes Hx Neurologic Surgery: No Hx Cataract Extraction: No Hx Cardiac Surgery: No Hx Lung Surgery: No Hx Breast Surgery: No Hx Breast Biopsy: No Hx Abdominal Surgery: No Hx Appendectomy: No Hx Cholecystectomy: No Hx Genitourinary Surgery: No Hx Section: No Hx Orthopedic Surgery: Yes (LT KNEE SX) Anesthesia Reaction: No - PPD History Previous Implant?: Yes Documented Results: Positive w/proof Results: 02/25/17 PPD to be Administered?: No - Smoking Cessation Smoking history: Current some day smoker Have you smoked in the past 12 months: Yes Aproximately how many cigarettes per day: 10 Cigars Per Day: 0 Hx Chewing Tobacco Use: No Initiated information on smoking cessation: Yes 'Breaking Loose' booklet given: 03/14/17 - Substance & Tx. History Hx Alcohol Use: Yes Hx Substance Use: No Substance Use Type: Alcohol Hx Substance Use Treatment: Yes ([facility] 02/24/17 to 02/28/17) - Substances Abused Alcohol Route: Oral Frequency: Daily Amount used: 12 pk and up Age of first use: 11 Date of Last Use: 03/14/17 Family Disease History - Family Disease History Family Disease History: Other: Brother (alcohol,dsa) Admission Physical Exam BHS - Vital Signs Vital Signs: Vital Signs Temperature 97.0 F L 03/14/17 13:20 Pulse Rate 86 03/14/17 13:20 Respiratory Rate 20 03/14/17 13:20 Blood Pressure 121/78 03/14/17 13:20 O2 Sat by Pulse Oximetry (%) - Physical General Appearance: Yes: Moderate Distress, Alcohol on Breath, Irritable, Sweating, Anxious HEENTM: Yes: Normal ENT Inspection, MISSY, Pharynx Normal, Other (abrasion of left eyebrow) Respiratory: Yes: Lungs Clear, No Respiratory Distress, Respiratory Distress Neck: Yes: Within Normal Limits, Supple, Trachea in good position Breast: Yes: Within Normal Limits Cardiology: Yes: Within Normal Limits, Regular Rhythm, Regular Rate, S1, S2 Abdominal: Yes: Within Normal Limits, Normal Bowel Sounds, Non Tender, Flat, Soft Genitourinary: Yes: Within Normal Limits Back: Yes: Normal Inspection Musculoskeletal: Yes: Back pain, Muscle Pain Extremities: Yes: Tremors Neurological: Yes: chief cook II-XII NML intact, Alert, Motor Strength 5/5, Normal Mood /Affect Integumentary: Yes: Dry Lymphatic: Yes: Within Normal Limits - Diagnostic (1) Alcohol dependence with uncomplicated withdrawal Current Visit: No Status: Acute (2) Alcohol dependence with uncomplicated intoxication Current Visit: Yes Status: Acute (3) Syncope Current Visit: Yes Status: Acute (4) Schizoaffective disorder Current Visit: No Status: Acute (5) Seizure Current Visit: No Status: Acute (6) Nicotine dependence Current Visit: No Status: Chronic Qualifiers: Nicotine product type: cigarettes Substance use status: uncomplicated Qualified Code(s): F17.210 - Nicotine dependence, cigarettes, uncomplicated; F17.210 - Nicotine dependence, cigarettes, uncomplicated (7) Weight decreased Current Visit: No Status: Chronic Cleared for Admission S - Detox or Rehab S Level of Care: Medically Managed Detox Regimen/Protocol: Librium S Breath Alcohol Content Breath Alcohol Content: 0.355
[2017-03-14 13:24] VITALS: BMI 22.6
[2017-03-14] MEDS ORDERED: hydrOXYzine PAMOATE 50 MG CAPSULE (FP) PO PRN (13:37)
[2017-03-14] MEDS ORDERED: MAGNESIUM HYDROX 2400MG/30ML ORAL SUSPENSION 30 ML CUP PO PRN (13:37)
[2017-03-14] MEDS ORDERED: MAG HYDROX/AL HYDROX/SIMETH 30 ML UNIT-DOSE CUP PO PRN (13:37)
[2017-03-14] MEDS ORDERED: chlordiazePOXIDE HCL 25 MG CAPSULE PO PRN (13:37)
[2017-03-14] MEDS ORDERED: P-EPHED 60MG/TRIPROLIDI 2.5MG TABLET PO PRN (13:37)
[2017-03-14] MEDS ORDERED: LOPERAMIDE HCL 2 MG CAPSULE PO PRN (13:37)
[2017-03-14] MEDS ORDERED: guaiFENesin/D-METHORPHAN HB 10 ML UNIT-DOSE CUPS PO PRN (13:37)
[2017-03-14] MEDS ORDERED: MENTHOL/PHENOL 1 EACH UD MM PRN (13:37)
[2017-03-14] MEDS ORDERED: MAGNESIUM CITRATE 300 ML BOTTLE PO PRN (13:37)
[2017-03-14] MEDS ORDERED: chlordiazePOXIDE HCL 25 MG CAPSULE PO ONE (14:20)
[2017-03-14] MEDS: chlordiazePOXIDE HCL 25 MG CAPSULE PO SCH ×2 (16:47→22:28)
[2017-03-14] MEDS: ACETAMINOPHEN 325 MG TABLET (FP) PO PRN (16:50)
[2017-03-14 18:44] LABS: URINE APPEARANCE CLEAR; URINE BILIRUBIN NEGATIVE (NEGATIVE); URINE BLOOD NEGATIVE (NEGATIVE); URINE COLOR COLORLESS; URINE GLUCOSE (UA) NEGATIVE (NEGATIVE); URINE KETONE NEGATIVE (NEGATIVE); URINE LEUK ESTERASE NEGATIVE (NEGATIVE); URINE NITRITE NEGATIVE (NEGATIVE); URINE PROTEIN NEGATIVE (NEGATIVE); URINE UROBILINOGEN NEGATIVE mg/dL (0.2-1.0)
[2017-03-14] MEDS: BACITRACIN 0.9 GM PACKET TP SCH (22:27)
[2017-03-14] MEDS: THIAMINE HCL 100 MG TABLET (FP) PO SCH (22:27)
[2017-03-14] MEDS: diphenhydrAMINE HCL 50 MG CAPSULE PO PRN (22:28)
[2017-03-15] MEDS: chlordiazePOXIDE HCL 25 MG CAPSULE PO SCH ×4 (05:22→22:20)
[2017-03-15 09:41] LABS: MCH 30.1 pg (25.7-33.7); MCHC 32.8 g/dl (32.0-35.9); MEAN CELL VOLUME 91.9 fl (80-96); PLATELET COUNT 253 K/MM3 (134-434); RDW 15.4 % (11.9-15.9); WHITE BLOOD COUNT 3.2 K/mm3 (4.0-10.0)
--- NOTE | 2017-03-15 09:52 | PN ---
S CIWA - CIWA Score Nausea/Vomitin Muscle Tremors: 3 Anxiety: 3 Agitation: 2 Paroxysmal Sweats: 1-Minimal Palms Moist Orientation: 0-Oriented Tacttile Disturbances: 1-Very Mild Itch/Numbness Auditory Disturbances: 1-Very Mild Visual Disturbances: 0-None Headache: 2-Mild CIWA-Ar Total Score: 16 BHS Progress Note (SOAP) Subjective: ALERT,IRRITABLE,ANXIOUS,INTERRUPTED SLEEP,TREMOR Objective: 03/15/17 09:48 Vital Signs Temperature 98.1 F 03/15/17 06:00 Pulse Rate 74 03/15/17 07:30 Respiratory Rate 18 03/15/17 07:30 Blood Pressure 149/88 03/15/17 07:30 O2 Sat by Pulse Oximetry (%) EKG NSR WITH 1ST DEGREE AV BLOCK 86/MIN,INVERTE T IN 2,3,AVF NO CHEST PIN,NO SOB,NO DIZZINESS Laboratory Last Values WBC 3.2 K/mm3 (4.0-10.0) L D 03/15/17 06:20 RBC 4.12 M/mm3 (4.00-5.60) 03/15/17 06:20 Hgb 12.4 GM/dL (11.7-16.9) D 03/15/17 06:20 Hct 37.9 % (35.4-49) D 03/15/17 06:20 MCV 91.9 fl (80-96) 03/15/17 06:20 MCH 30.1 pg (25.7-33.7) 03/15/17 06:20 MCHC 32.8 g/dl (32.0-35.9) 03/15/17 06:20 RDW 15.4 % (11.9-15.9) 03/15/17 06:20 Plt Count 253 K/MM3 (134-434) D 03/15/17 06:20 MPV 9.0 fl (7.5-11.1) 03/15/17 06:20 Urine Color Colorless 03/14/17 17:45 Urine Appearance Clear 03/14/17 17:45 Urine pH 5.0 (5.0-8.0) D 03/14/17 17:45 Ur Specific [place] <= 1.005 (1.005-1.025) 03/14/17 17:45 Urine Protein Negative (NEGATIVE) 03/14/17 17:45 Urine Glucose (UA) Negative (NEGATIVE) 03/14/17 17:45 Urine Ketones Negative (NEGATIVE) 03/14/17 17:45 Urine Blood Negative (NEGATIVE) 03/14/17 17:45 Urine Nitrite Negative (NEGATIVE) 03/14/17 17:45 Urine Bilirubin Negative (NEGATIVE) 03/14/17 17:45 Urine Urobilinogen Negative mg/dL (0.2-1.0) 03/14/17 17:45 LABS PENDING Assessment: 03/15/17 09:51 WITHDRAWAL SYMPTOM Plan: CONTINUE DETOX
--- NOTE | 2017-03-15 09:55 | EKG ---
Test Reason : Blood Pressure : / mmHG Vent. Rate : 086 BPM Atrial Rate : 086 BPM P-R Int : 238 ms QRS Dur : 096 ms QT Int : 390 ms P-R-T Axes : 055 -84 -84 degrees QTc Int : 466 ms SINUS RHYTHM LEFT AXIS DEVIATION T WAVE ABNORMALITY, CONSIDER INFERIOR ISCHEMIA ABNORMAL ECG WHEN COMPARED WITH ECG OF 25-FEB-2017 01:37, T WAVE INVERSION NOW EVIDENT IN INFERIOR LEADS Confirmed by NILDA ALSTON, XENIA ([id number]) on 03/15/2017 9:55:09 AM Referred By: Confirmed By:XENIA MUNGUIA MD
[2017-03-15 10:02] LABS: ALBUMIN 3.9 g/dl (3.4-5.0); ALK PHOS 93 U/L (45-117); ANION GAP 7 (8-16); BILIRUBIN,TOTAL 0.9 mg/dL (0.2-1.0); CALCIUM 9.1 mg/dL (8.5-10.1); CO2 29 mmol/L (21-32); CREATININE 0.7 mg/dL (0.7-1.3); GLUCOSE,RANDOM 83 mg/dL (74-106); SGOT/AST 39 U/L (15-37); SGPT/ALT 29 U/L (12-78); TOT PROT 8.1 g/dl (6.4-8.2)
[2017-03-15] MEDS: BACITRACIN 0.9 GM PACKET TP SCH ×2 (10:24→22:20)
[2017-03-15] MEDS: PRENATAL VITAMINS W/ FOLIC ACID TABLET (FP) PO SCH (10:24)
[2017-03-15] MEDS: ACETAMINOPHEN 325 MG TABLET (FP) PO PRN ×2 (10:25→22:21)
[2017-03-15] MEDS: NICOTINE 21 MG/24 HOURS TOPICAL PATCH TD SCH (10:26)
--- NOTE | 2017-03-15 12:09 | CONSULT ---
[facility] Psychiatric Consult - Data Date of interview: 03/15/17 Admission source: [facility] Identifying data: Readmission to [facility] for this 57 y/o AA male seeking detox treatment on for alcohol dependence.Patient is single,a father of one,domiciled,unemployed and supported on SSI benefits. Substance Abuse History: Confirmed by patient in this session. Smoking Cessation. Smoking history: Current some day smoker. Have you smoked in the past 12 months: Yes. Aproximately how many cigarettes per day: 10. Cigars Per Day: 0. Hx Chewing Tobacco Use: No. Initiated information on smoking cessation : Yes. 'Breaking Loose' booklet given: 03/14/17. - Substance & Tx. History. Hx Alcohol Use: Yes. Hx Substance Use: No. Substance Use Type: Alcohol. Hx Substance Use Treatment: Yes ([facility] 02/24/17 to 02/28/17). - Substances Abused. Alcohol. Route: Oral. Frequency: Daily. Amount used: 12 pk and up. Age of first use: 11. Date of Last Use: 03/14/17 Medical History: Patient is in good general health.Noted history of surgery on left knee. Psychiatric History: Distant history of psychiatric hospitalizations ( [facility] and during his incarceration at the [facility] in [facility],more than 15 years ago) .Diagnosed with Bipolar Disorder.Mr Myles indicates that he sees a psychiatrist at the [facility] outpatient [facility] in [facility].Medicated with zyprexa 5 mg/daily (taken only during admissions to [facility]).Total non- adherence after discharges.Patient denies history of suicide attempts. Physical/Sexual Abuse/Trauma History: No reported history of abuse. Additional Comment: No toxicology screen available. Mental Status Exam - Mental Status Exam Alert and Oriented to: Time, Place, Person Cognitive Function: Good Patient Appearance: Well Groomed Mood: Hopeful, Euthymic Affect: Appropriate, Normal Range Patient Behavior: Appropriate, Cooperative Speech Pattern: Clear Voice Loudness: Normal Thought Process: Intact, Goal Oriented Thought Disorder: Not Present Hallucinations: Denies Suicidal Ideation: Denies Homicidal Ideation: Denies Insight/Judgement: Poor Sleep: Poorly, Difficulty falling asleep Appetite: Good Muscle strength/Tone: Normal Gait/Station: Normal Psychiatric Findings - Problem List ([place] 1, 2,3) (1) Alcohol dependence with uncomplicated intoxication Current Visit: Yes Status: Acute (2) Drug-induced mood disorder Current Visit: Yes Status: Acute (3) Nicotine dependence Current Visit: Yes Status: Acute Qualifiers: Nicotine product type: cigarettes Substance use status: uncomplicated Qualified Code(s): F17.210 - Nicotine dependence, cigarettes, uncomplicated; F17.210 - Nicotine dependence, cigarettes, uncomplicated (4) Insomnia Current Visit: Yes Status: Acute - Initial Treatment Plan Initial Treatment Plan: Psychoeducation.Detoxification.Patient declines to resume olanzapine.Insomnia is addressed with benadryl 50 mg po hs.Side-effects/ benefits discussed with patient.Agres with careplan.Observation.
[2017-03-15] MEDS: CARBAMIDE PEROXIDE 6.5% OTIC 15 ML BOTTLE AU SCH ×2 (15:11→22:20)
[2017-03-15] MEDS: THIAMINE HCL 100 MG TABLET (FP) PO SCH (22:20)
[2017-03-15] MEDS: diphenhydrAMINE HCL 50 MG CAPSULE PO PRN (22:21)
[2017-03-16] MEDS: chlordiazePOXIDE HCL 25 MG CAPSULE PO SCH ×2 (05:56→10:15)
[2017-03-16] MEDS: CARBAMIDE PEROXIDE 6.5% OTIC 15 ML BOTTLE AU SCH ×2 (10:15→22:30)
[2017-03-16] MEDS: BACITRACIN 0.9 GM PACKET TP SCH ×2 (10:15→22:30)
[2017-03-16] MEDS: NICOTINE 21 MG/24 HOURS TOPICAL PATCH TD SCH (10:15)
[2017-03-16] MEDS: PRENATAL VITAMINS W/ FOLIC ACID TABLET (FP) PO SCH (10:15)
[2017-03-16] MEDS: IBUPROFEN 400 MG TABLET (FP) PO PRN ×2 (10:17→22:31)
--- NOTE | 2017-03-16 11:07 | PN ---
S CIWA - CIWA Score Nausea/Vomitin Muscle Tremors: 3 Anxiety: 2 Agitation: 2 Paroxysmal Sweats: 1-Minimal Palms Moist Orientation: 0-Oriented Tacttile Disturbances: 1-Very Mild Itch/Numbness Auditory Disturbances: 1-Very Mild Visual Disturbances: 0-None Headache: 2-Mild CIWA-Ar Total Score: 15 BHS Progress Note (SOAP) Subjective: alert,irritable,anxious,interrupted sleep,tremor Objective: 03/16/17 11:05 Vital Signs Temperature 98.3 F 03/16/17 10:05 Pulse Rate 70 03/16/17 10:05 Respiratory Rate 16 03/16/17 10:05 Blood Pressure 114/70 03/16/17 10:05 O2 Sat by Pulse Oximetry (%) 03/16/17 11:05 Laboratory Last Values WBC 3.2 K/mm3 (4.0-10.0) L D 03/15/17 06:20 RBC 4.12 M/mm3 (4.00-5.60) 03/15/17 06:20 Hgb 12.4 GM/dL (11.7-16.9) D 03/15/17 06:20 Hct 37.9 % (35.4-49) D 03/15/17 06:20 MCV 91.9 fl (80-96) 03/15/17 06:20 MCH 30.1 pg (25.7-33.7) 03/15/17 06:20 MCHC 32.8 g/dl (32.0-35.9) 03/15/17 06:20 RDW 15.4 % (11.9-15.9) 03/15/17 06:20 Plt Count 253 K/MM3 (134-434) D 03/15/17 06:20 MPV 9.0 fl (7.5-11.1) 03/15/17 06:20 Sodium 141 mmol/L (136-145) 03/15/17 06:20 Potassium 4.3 mmol/L (3.5-5.1) 03/15/17 06:20 Chloride 105 mmol/L (98-107) 03/15/17 06:20 Carbon Dioxide 29 mmol/L (21-32) 03/15/17 06:20 Anion Gap 7 (8-16) L 03/15/17 06:20 BUN 10 mg/dL (7-18) 03/15/17 06:20 Creatinine 0.7 mg/dL (0.7-1.3) 03/15/17 06:20 Creat Clearance w eGFR > 60 (>60) 03/15/17 06:20 Random Glucose 83 mg/dL (74-106) D 03/15/17 06:20 Calcium 9.1 mg/dL (8.5-10.1) 03/15/17 06:20 Total Bilirubin 0.9 mg/dL (0.2-1.0) D 03/15/17 06:20 AST 39 U/L (15-37) H 03/15/17 06:20 ALT 29 U/L (12-78) 03/15/17 06:20 Alkaline Phosphatase 93 U/L (45-117) 03/15/17 06:20 Total Protein 8.1 g/dl (6.4-8.2) D 03/15/17 06:20 Albumin 3.9 g/dl (3.4-5.0) D 03/15/17 06:20 Urine Color Colorless 03/14/17 17:45 Urine Appearance Clear 03/14/17 17:45 Urine pH 5.0 (5.0-8.0) D 03/14/17 17:45 Ur Specific [place] <= 1.005 (1.005-1.025) 03/14/17 17:45 Urine Protein Negative (NEGATIVE) 03/14/17 17:45 Urine Glucose (UA) Negative (NEGATIVE) 03/14/17 17:45 Urine Ketones Negative (NEGATIVE) 03/14/17 17:45 Urine Blood Negative (NEGATIVE) 03/14/17 17:45 Urine Nitrite Negative (NEGATIVE) 03/14/17 17:45 Urine Bilirubin Negative (NEGATIVE) 03/14/17 17:45 Urine Urobilinogen Negative mg/dL (0.2-1.0) 03/14/17 17:45 RPR Titer Nonreactive (NONREACTIVE) 03/15/17 06:20 Assessment: 03/16/17 11:05 withdrawal symptom 03/16/17 11:06 Plan: continue detox
[2017-03-16] MEDS: chlordiazePOXIDE 5 MG CAPSULE PO SCH ×2 (17:57→22:29)
[2017-03-16] MEDS: THIAMINE HCL 100 MG TABLET (FP) PO SCH (22:30)
[2017-03-16] MEDS: diphenhydrAMINE HCL 50 MG CAPSULE PO PRN (22:30)
[2017-03-17] MEDS: chlordiazePOXIDE 5 MG CAPSULE PO SCH ×2 (05:27→10:40)
[2017-03-17] MEDS: ACETAMINOPHEN 325 MG TABLET (FP) PO PRN (05:29)
[2017-03-17] MEDS: PRENATAL VITAMINS W/ FOLIC ACID TABLET (FP) PO SCH (10:40)
[2017-03-17] MEDS: BACITRACIN 0.9 GM PACKET TP SCH ×2 (10:40→22:28)
[2017-03-17] MEDS: CARBAMIDE PEROXIDE 6.5% OTIC 15 ML BOTTLE AU SCH ×2 (10:40→22:47)
[2017-03-17] MEDS: NICOTINE 21 MG/24 HOURS TOPICAL PATCH TD SCH (10:41)
[2017-03-17] MEDS: IBUPROFEN 400 MG TABLET (FP) PO PRN (10:42)
[2017-03-17] MEDS ORDERED: IBUPROFEN 600 MG TABLET (FP) PO PRN (10:45)
[2017-03-17] MEDS ORDERED: CYCLOBENZAPRINE HCL 10 MG TABLET (FP) PO PRN (10:46)
--- NOTE | 2017-03-17 11:58 | PN ---
BHS Progress Note (SOAP) Subjective: ALERT,IRRITABLE,PAIN IN THE BACK,INTERRUPTED SLEEP Objective: 03/17/17 11:56 Vital Signs Temperature 98.1 F 03/17/17 10:16 Pulse Rate 69 03/17/17 10:16 Respiratory Rate 18 03/17/17 10:16 Blood Pressure 137/85 03/17/17 10:16 O2 Sat by Pulse Oximetry (%) Assessment: 03/17/17 11:57 WITHDRAWAL SYMPTOM Plan: CONTINUE DETOX,DISCHARGE IN AM,MOTRIN 600 MGS PO Q 6HR PRN,FLEXERIL 10 MG PO TID PRN
[2017-03-17] MEDS: chlordiazePOXIDE HCL 10 MG CAPSULE PO SCH ×2 (17:20→22:28)
[2017-03-17] MEDS: THIAMINE HCL 100 MG TABLET (FP) PO SCH (22:28)
[2017-03-17] MEDS: diphenhydrAMINE HCL 50 MG CAPSULE PO PRN (22:28)
[2017-03-18] MEDS: chlordiazePOXIDE HCL 10 MG CAPSULE PO SCH ×2 (06:07→11:11)
[2017-03-18] MEDS: CARBAMIDE PEROXIDE 6.5% OTIC 15 ML BOTTLE AU SCH (09:22)
[2017-03-18] MEDS: BACITRACIN 0.9 GM PACKET TP SCH (09:22)
[2017-03-18] MEDS: PRENATAL VITAMINS W/ FOLIC ACID TABLET (FP) PO SCH (09:22)
[2017-03-18] MEDS: NICOTINE 21 MG/24 HOURS TOPICAL PATCH TD SCH (09:24)
--- NOTE | 2017-03-18 09:39 | DS ---
[facility] Detox Discharge Summary Admission Date: 03/14/17 Discharge Date: 03/18/17 - History Present History: Alcohol Dependence, Cannabis Dependence Additional Comments: follow up with [facility] Pertinent Past History: seizure syncope nicotine dependence schizoaffective disorder oleg decreased - Physical Exam Results Vital Signs: Vital Signs Temperature 97.7 F 03/18/17 07:48 Pulse Rate 57 L 03/18/17 07:48 Respiratory Rate 18 03/18/17 07:48 Blood Pressure 145/77 03/18/17 07:48 O2 Sat by Pulse Oximetry (%) Pertinent Admission Physical Exam Findings: withdrawal symptom - Treatment Hospital Course: Detox Protocol Followed, Detoxed Safely, Responded well, Discharged Condition Good, Rehab Referral Accepted Patient has Accepted a Rehab Referral to: [facility] - Medication Discharge Medications: Ambulatory Orders Olanzapine [Zyprexa -] 20 mg PO HS #30 tablet 12/01/16 - Diagnosis (1) Alcohol dependence with uncomplicated withdrawal Current Visit: No Status: Acute (2) Alcohol dependence with uncomplicated intoxication Current Visit: Yes Status: Acute (3) Syncope Current Visit: Yes Status: Acute (4) Schizoaffective disorder Current Visit: No Status: Acute (5) Seizure Current Visit: No Status: Acute (6) Nicotine dependence Current Visit: Yes Status: Acute Qualifiers: Nicotine product type: cigarettes Substance use status: uncomplicated Qualified Code(s): F17.210 - Nicotine dependence, cigarettes, uncomplicated; F17.210 - Nicotine dependence, cigarettes, uncomplicated (7) Weight decreased Current Visit: No Status: Chronic - AMA Did Patient Leave Against Medical Advice: No
[2017-03-18 10:29] VITALS: BP 146/84; PULSE 72; TEMP 97.5
== END 2017-03-18 12:20 | disposition other institution (70) | DRG 775 ==
LOC: YASAS 13:15 → Y6N 14:17
PROVIDERS: ADMIT Internal Medicine; ATTEND Internal Medicine
PROC: HZ2ZZZZ Detoxification Services for Substance Abuse Treatment (ICD-10-PCS; principal; 2017-03-14)
DX: F10.230 Alcohol dependence with withdrawal, uncomplicated (principal); F10.220 Alcohol dependence with intoxication, uncomplicated; F17.210 Nicotine dependence, cigarettes, uncomplicated; F25.9 Schizoaffective disorder, unspecified; F19.24 Other psychoactive substance dependence with psychoactive substance-induced mood disorder; I44.0 Atrioventricular block, first degree; G47.00 Insomnia, unspecified; Z86.79 Personal history of other diseases of the circulatory system; Z86.69 Personal history of other diseases of the nervous system and sense organs; Z87.898 Personal history of other specified conditions
CPT/HCPCS: 36415; 80053; 81003; 85027; 86593; 93005; 93010

== ENCOUNTER 2017-03-18 12:33 | Inpatient (IN) | payer OTHER ==
[2017-03-18] MEDS ORDERED: MENTHOL/PHENOL 1 EACH UD MM PRN (14:51)
[2017-03-18] MEDS ORDERED: LOPERAMIDE HCL 2 MG CAPSULE PO PRN (14:51)
[2017-03-18] MEDS ORDERED: guaiFENesin/D-METHORPHAN HB 10 ML UNIT-DOSE CUPS PO PRN (14:51)
[2017-03-18] MEDS ORDERED: MAG HYDROX/AL HYDROX/SIMETH 30 ML UNIT-DOSE CUP PO PRN (14:51)
[2017-03-18] MEDS ORDERED: P-EPHED 60MG/TRIPROLIDI 2.5MG TABLET PO PRN (14:51)
[2017-03-18] MEDS ORDERED: MAGNESIUM CITRATE 300 ML BOTTLE PO PRN (14:51)
[2017-03-18] MEDS ORDERED: MAGNESIUM HYDROX 2400MG/30ML ORAL SUSPENSION 30 ML CUP PO PRN (14:51)
[2017-03-18] MEDS ORDERED: NICOTINE POLACRILEX 2 MG GUM BUC PRN (14:52)
--- NOTE | 2017-03-18 14:54 | HP ---
[facility] Rehab Assess/Revision - Admission History Admitted to Rehab from: [facility] Date of Admission to Rehab: 03/18/17 - Vital signs Vital Signs: Vital Signs Period Temp Pulse Resp BP Sys/Coelho Pulse Ox Last 24 Hr 98.1 F 77 16 127/69 - Findings Detox History & Physical reviewed: Yes Concur with findings: Yes Comments/Additional Findings: debrox ordered for earwax Inpatient Rehab Admission - Initial Determination Are CD services needed?: Yes Free of communicable disease: Yes Not in need of hospitalization: Yes - Rehab Admission Criteria Comorbidities: Yes Patient is meeting Inpatient Rehab admission criteria:: Yes
[2017-03-18] MEDS ORDERED: hydrOXYzine PAMOATE 50 MG CAPSULE (FP) PO PRN (15:19)
--- NOTE | 2017-03-18 15:21 | HP ---
Psychiatrist Admission - Data Date of interview: 03/18/17 Admission source: 6N Identifying data: This is the first 5N 57 y/o AA male who is single,a father of one,domiciled,unemployed and supported on SSI benefits. Medical History: back pain, smokes cigarettes 10 a day. Psychiatric History: Reports first psychiatric admission in his 20' while in senior care, ([facility]), states he was depressed and tried to hang self, was in forensic facility for 24 hours observation, diagnosed with depression and prescribed Zyprexa. Reports that from [id number], he saw Dr Do at the [facility] and was prescribed Zyprexa, he only took that medication when admitted to inpatient detox in this facility and stopped taking following discharge. He last took it while in detox here in November [address] Olvera. He reports he has mood swings, difficulty to control his anger, easilly aggravated,he hears voices on and off,calling his name. Patient also reports was on Campral which helped him with his urges to drink and willing to restart medocations. Physical/Sexual Abuse/Trauma History: Denies Vital Signs: Vital Signs - 24 hr 03/18/17 12:46 Temperature 98.1 F Pulse Rate 77 Respiratory 16 Rate Blood Pressure 127/69 Allergies/Adverse Reactions: Allergies Allergy/AdvReac Type Severity Reaction Status Date / Time No Known Allergies Allergy Verified 03/18/17 12:47 Date of last physical exam: 03/16/17 Concur with the findings of this exam: Yes - Substance Abuse/Tx History Hx Alcohol Use: Yes (started drinking at age of 11, daily 12 pks of beer) Hx Substance Use: No Substance Use Type: Alcohol Hx Substance Use Treatment: Yes Mental Status Exam - Mental Status Exam Alert and Oriented to: Time, Place, Person Cognitive Function: Grossly Intact Patient Appearance: Well Groomed Mood: Depressed, Sad, Anxious Affect: Appropriate Patient Behavior: Appropriate, Cooperative Speech Pattern: Clear, Appropriate Voice Loudness: Normal Thought Process: Intact, Goal Oriented Thought Disorder: Not Present Hallucinations: Auditory (on and off) Suicidal Ideation: Denies Homicidal Ideation: Denies Insight/Judgement: Fair Sleep: Fair Appetite: Poor, Weight loss Muscle strength/Tone: Normal Gait/Station: Normal Psychiatric Findings - Problem List ([place] 1, 2,3) (1) Alcohol dependence Current Visit: No Status: Acute (2) Nicotine dependence Current Visit: No Status: Acute Qualifiers: Nicotine product type: cigarettes Substance use status: uncomplicated Qualified Code(s): F17.210 - Nicotine dependence, cigarettes, uncomplicated; F17.210 - Nicotine dependence, cigarettes, uncomplicated (3) Schizoaffective disorder Current Visit: No Status: Acute - Initial Treatment Plan Initial Treatment Plan: will restart Zyprexa 5 mg po hs, add Vistaril 50 mg po q 4hrs, Campral 666 mg po tid, will monitor progress as needed.
[2017-03-18] MEDS: OLANZapine 5 MG TABLET PO SCH (21:50)
[2017-03-18] MEDS: THIAMINE HCL 100 MG TABLET (FP) PO SCH (21:50)
[2017-03-18] MEDS: CARBAMIDE PEROXIDE 6.5% OTIC 15 ML BOTTLE AU SCH (21:51)
[2017-03-18] MEDS: ACAMPROSATE CALCIUM 333 MG TABLET.DR PO SCH (21:51)
[2017-03-18] MEDS: diphenhydrAMINE HCL 50 MG CAPSULE PO PRN (21:52)
[2017-03-19] MEDS: ACAMPROSATE CALCIUM 333 MG TABLET.DR PO SCH ×3 (06:53→21:51)
[2017-03-19] MEDS: PRENATAL VITAMINS W/ FOLIC ACID TABLET (FP) PO SCH (10:28)
[2017-03-19] MEDS: CARBAMIDE PEROXIDE 6.5% OTIC 15 ML BOTTLE AU SCH ×2 (10:29→21:52)
[2017-03-19] MEDS: NICOTINE 14 MG/24 HOURS TOPICAL PATCH TD SCH (10:31)
[2017-03-19] MEDS: IBUPROFEN 400 MG TABLET (FP) PO PRN (13:03)
[2017-03-19] MEDS: THIAMINE HCL 100 MG TABLET (FP) PO SCH (21:51)
[2017-03-19] MEDS: OLANZapine 5 MG TABLET PO SCH (21:51)
[2017-03-19] MEDS: diphenhydrAMINE HCL 50 MG CAPSULE PO PRN (21:52)
[2017-03-20] MEDS: diphenhydrAMINE HCL 50 MG CAPSULE PO PRN ×2 (00:31→21:49)
[2017-03-20] MEDS: ACAMPROSATE CALCIUM 333 MG TABLET.DR PO SCH ×3 (06:55→21:49)
[2017-03-20] MEDS: NICOTINE 14 MG/24 HOURS TOPICAL PATCH TD SCH (10:30)
[2017-03-20] MEDS: PRENATAL VITAMINS W/ FOLIC ACID TABLET (FP) PO SCH (10:30)
[2017-03-20] MEDS: IBUPROFEN 400 MG TABLET (FP) PO PRN ×2 (10:31→21:51)
[2017-03-20] MEDS: CARBAMIDE PEROXIDE 6.5% OTIC 15 ML BOTTLE AU SCH ×2 (10:33→21:50)
[2017-03-20] MEDS: OLANZapine 5 MG TABLET PO SCH (21:49)
[2017-03-20] MEDS: THIAMINE HCL 100 MG TABLET (FP) PO SCH (21:49)
[2017-03-21] MEDS: ACAMPROSATE CALCIUM 333 MG TABLET.DR PO SCH ×3 (06:30→21:54)
[2017-03-21] MEDS: PRENATAL VITAMINS W/ FOLIC ACID TABLET (FP) PO SCH (10:48)
[2017-03-21] MEDS: NICOTINE 14 MG/24 HOURS TOPICAL PATCH TD SCH (11:38)
[2017-03-21] MEDS: CARBAMIDE PEROXIDE 6.5% OTIC 15 ML BOTTLE AU SCH ×2 (11:38→21:55)
[2017-03-21] MEDS: OLANZapine 5 MG TABLET PO SCH (21:54)
[2017-03-21] MEDS: THIAMINE HCL 100 MG TABLET (FP) PO SCH (21:54)
[2017-03-21] MEDS: diphenhydrAMINE HCL 50 MG CAPSULE PO PRN (21:55)
[2017-03-22] MEDS: ACAMPROSATE CALCIUM 333 MG TABLET.DR PO SCH ×3 (06:24→22:03)
[2017-03-22] MEDS: PRENATAL VITAMINS W/ FOLIC ACID TABLET (FP) PO SCH (10:58)
[2017-03-22] MEDS: CARBAMIDE PEROXIDE 6.5% OTIC 15 ML BOTTLE AU SCH ×2 (10:59→22:03)
[2017-03-22] MEDS: NICOTINE 14 MG/24 HOURS TOPICAL PATCH TD SCH (10:59)
[2017-03-22] MEDS: ACETAMINOPHEN 325 MG TABLET (FP) PO PRN ×2 (14:43→22:05)
[2017-03-22] MEDS: OLANZapine 5 MG TABLET PO SCH (22:03)
[2017-03-22] MEDS: THIAMINE HCL 100 MG TABLET (FP) PO SCH (22:03)
[2017-03-22] MEDS: diphenhydrAMINE HCL 50 MG CAPSULE PO PRN (22:05)
[2017-03-23] MEDS: ACETAMINOPHEN 325 MG TABLET (FP) PO PRN ×2 (06:21→21:44)
[2017-03-23] MEDS: ACAMPROSATE CALCIUM 333 MG TABLET.DR PO SCH ×3 (06:21→21:44)
[2017-03-23] MEDS: PRENATAL VITAMINS W/ FOLIC ACID TABLET (FP) PO SCH (10:44)
[2017-03-23] MEDS: NICOTINE 14 MG/24 HOURS TOPICAL PATCH TD SCH (10:44)
[2017-03-23] MEDS: CARBAMIDE PEROXIDE 6.5% OTIC 15 ML BOTTLE AU SCH ×2 (10:45→21:45)
[2017-03-23] MEDS: OLANZapine 5 MG TABLET PO SCH (21:44)
[2017-03-23] MEDS: diphenhydrAMINE HCL 50 MG CAPSULE PO PRN (21:44)
[2017-03-23] MEDS: THIAMINE HCL 100 MG TABLET (FP) PO SCH (21:44)
[2017-03-24] MEDS: ACAMPROSATE CALCIUM 333 MG TABLET.DR PO SCH ×3 (06:24→21:43)
[2017-03-24] MEDS: ACETAMINOPHEN 325 MG TABLET (FP) PO PRN (06:25)
[2017-03-24] MEDS: PRENATAL VITAMINS W/ FOLIC ACID TABLET (FP) PO SCH (10:28)
[2017-03-24] MEDS: NICOTINE 14 MG/24 HOURS TOPICAL PATCH TD SCH (10:28)
[2017-03-24] MEDS: CARBAMIDE PEROXIDE 6.5% OTIC 15 ML BOTTLE AU SCH ×2 (10:28→21:47)
[2017-03-24] MEDS: THIAMINE HCL 100 MG TABLET (FP) PO SCH (21:43)
[2017-03-24] MEDS: OLANZapine 5 MG TABLET PO SCH (21:43)
[2017-03-24] MEDS: diphenhydrAMINE HCL 50 MG CAPSULE PO PRN (21:45)
[2017-03-24] MEDS: IBUPROFEN 400 MG TABLET (FP) PO PRN (21:46)
[2017-03-25] MEDS: ACAMPROSATE CALCIUM 333 MG TABLET.DR PO SCH ×3 (07:21→21:46)
[2017-03-25] MEDS: ACETAMINOPHEN 325 MG TABLET (FP) PO PRN (10:43)
[2017-03-25] MEDS: NICOTINE 14 MG/24 HOURS TOPICAL PATCH TD SCH (10:44)
[2017-03-25] MEDS: PRENATAL VITAMINS W/ FOLIC ACID TABLET (FP) PO SCH (10:44)
[2017-03-25] MEDS: CARBAMIDE PEROXIDE 6.5% OTIC 15 ML BOTTLE AU SCH ×2 (10:44→21:46)
--- NOTE | 2017-03-25 15:02 | PN ---
Psychiatric Progress Note Vital Signs: Vital Signs Period Temp Pulse Resp BP Sys/Coelho Pulse Ox Last 24 Hr 98.0 F 90 16-18 132/89 Date of Session: 03/25/17 Chief Complaint:: insomnia HPI: Patient is addressing alcohol, nicotine dependence comorbid Schizoaffective disorder. Current Medications: Active Medications Generic Name Dose Route Start Last Admin Trade Name Freq PRN Reason Stop Dose Admin Acamprosate 666 mg 03/18/17 22:00 03/25/17 13:49 Campral - PO 666 mg TID ABEL Administration Acetaminophen 650 mg 03/18/17 14:51 03/25/17 10:43 Tylenol - PO 650 mg Q4H PRN Administration FEVER OR PAIN Al Hydroxide/Mg Hydroxide 30 ml 03/18/17 14:51 Mylanta Oral Suspension - PO Q6H PRN DYSPEPSIA Carbamide Perox/Anhydrous Glycerin 5 drop 03/18/17 22:00 03/25/17 10:44 Debrox - AU Not Given BID ABEL Diphenhydramine HCl 50 mg 03/18/17 14:51 03/24/17 21:45 Benadryl - PO 50 mg HSMR1 PRN Administration FOR ITCHING Doxepin HCl 25 mg 03/25/17 22:00 Sinequan - PO HS ABEL Eucalyptus/Menthol/Phenol/Sorbitol 1 each 03/18/17 14:51 Cepastat Lozenge - MM Q4H PRN SORE THROAT Guaifenesin 10 ml 03/18/17 14:51 Robitussin Dm - PO Q6H PRN COUGH Hydroxyzine Pamoate 50 mg 03/18/17 15:19 03/23/17 22:58 Vistaril - PO 50 mg Q4H PRN Administration ANXIETY Ibuprofen 400 mg 03/18/17 14:51 03/24/17 21:46 Motrin - PO 400 mg Q6H PRN Administration PAIN Loperamide HCl 4 mg 03/18/17 14:51 Imodium - PO Q6H PRN DIARRHEA Magnesium Hydroxide 30 ml 03/18/17 14:51 Milk Of Magnesia - PO DAILY PRN CONSTIPATION Nicotine 14 mg 03/19/17 10:00 03/25/17 10:44 Nicoderm Patch - TD Not Given DAILY ABEL Nicotine Polacrilex 2 mg 03/18/17 14:52 Nicorette Gum - BUC Q2H PRN NICOTINE REPLACEMENT RX Olanzapine 5 mg 03/18/17 22:00 03/24/17 21:43 Zyprexa - PO 5 mg HS ABEL Administration Multivit/Folic Acid/Iron 1 tab 03/19/17 10:00 03/25/17 10:44 Vitamins (Sjr) - PO 1 tab DAILY ABEL Administration Pseudoephedrine/Triprolidine 1 combo 03/18/17 14:51 Actifed - PO TID PRN NASAL CONGESTION Thiamine HCl 100 mg 03/18/17 22:00 03/24/17 21:43 Vitamin B1 - PO 100 mg HS ABEL Administration Medication(s) Change(s): add Sinequan 25 mg po hs Current Side Effect: No Lab tests ordered: No Lab tests reviewed: Yes Provider note:: Patient reports he is unable to sleep well, his sleep is interrupted and he is fatiqued next day, he reports that Benadryl not effective. Reviewed medications with the patient, discussed indications and properteis of Sinequan with the patient he agreed to start. Sleep hygiene and psychoeducation provided, will add Sinequan 25 mg po hs, continue to monitor progress. Total face to face time:: 25 Mental Status Exam - Mental Status Exam Alert and Oriented to: Time, Place, Person Cognitive Function: Good Patient Appearance: Well Groomed Mood: Sad, Anxious Affect: Appropriate, Mood Congruent Patient Behavior: Appropriate, Cooperative Speech Pattern: Clear, Appropriate Voice Loudness: Normal Thought Process: Intact, Goal Oriented Thought Disorder: Not Present Hallucinations: Denies Suicidal Ideation: Denies Homicidal Ideation: Denies Insight/Judgement: Fair Sleep: Fair Appetite: Fair Muscle strength/Tone: Normal Gait/Station: Normal Psychiatric Treatment Plan - Problem List (1) Alcohol dependence Current Visit: No (2) Nicotine dependence Current Visit: No Qualifiers: Nicotine product type: cigarettes Substance use status: uncomplicated Qualified Code(s): F17.210 - Nicotine dependence, cigarettes, uncomplicated; F17.210 - Nicotine dependence, cigarettes, uncomplicated (3) Schizoaffective disorder Current Visit: No
[2017-03-25] MEDS: diphenhydrAMINE HCL 50 MG CAPSULE PO PRN (21:46)
[2017-03-25] MEDS: THIAMINE HCL 100 MG TABLET (FP) PO SCH (21:46)
[2017-03-25] MEDS: OLANZapine 5 MG TABLET PO SCH (21:46)
[2017-03-25] MEDS: DOXEPIN HCL 25 MG CAPSULE PO SCH (21:46)
[2017-03-26] MEDS: ACAMPROSATE CALCIUM 333 MG TABLET.DR PO SCH ×3 (06:54→21:44)
[2017-03-26] MEDS: NICOTINE 14 MG/24 HOURS TOPICAL PATCH TD SCH (10:55)
[2017-03-26] MEDS: CARBAMIDE PEROXIDE 6.5% OTIC 15 ML BOTTLE AU SCH ×2 (10:55→21:44)
[2017-03-26] MEDS: PRENATAL VITAMINS W/ FOLIC ACID TABLET (FP) PO SCH (10:55)
[2017-03-26] MEDS: OLANZapine 5 MG TABLET PO SCH (21:43)
[2017-03-26] MEDS: DOXEPIN HCL 25 MG CAPSULE PO SCH (21:44)
[2017-03-26] MEDS: diphenhydrAMINE HCL 50 MG CAPSULE PO PRN (21:44)
[2017-03-26] MEDS: THIAMINE HCL 100 MG TABLET (FP) PO SCH (21:44)
[2017-03-27] MEDS: ACAMPROSATE CALCIUM 333 MG TABLET.DR PO SCH ×3 (06:46→21:36)
[2017-03-27] MEDS: PRENATAL VITAMINS W/ FOLIC ACID TABLET (FP) PO SCH (10:31)
[2017-03-27] MEDS: CARBAMIDE PEROXIDE 6.5% OTIC 15 ML BOTTLE AU SCH ×2 (10:31→21:36)
[2017-03-27] MEDS: NICOTINE 14 MG/24 HOURS TOPICAL PATCH TD SCH (10:31)
[2017-03-27] MEDS: OLANZapine 5 MG TABLET PO SCH (21:36)
[2017-03-27] MEDS: THIAMINE HCL 100 MG TABLET (FP) PO SCH (21:36)
[2017-03-27] MEDS: DOXEPIN HCL 25 MG CAPSULE PO SCH (21:36)
[2017-03-27] MEDS: diphenhydrAMINE HCL 50 MG CAPSULE PO PRN (21:36)
[2017-03-28] MEDS: ACAMPROSATE CALCIUM 333 MG TABLET.DR PO SCH ×3 (06:18→21:55)
[2017-03-28] MEDS: ACETAMINOPHEN 325 MG TABLET (FP) PO PRN ×2 (07:00→21:56)
[2017-03-28] MEDS: PRENATAL VITAMINS W/ FOLIC ACID TABLET (FP) PO SCH (10:31)
[2017-03-28] MEDS: CARBAMIDE PEROXIDE 6.5% OTIC 15 ML BOTTLE AU SCH ×2 (10:31→21:58)
[2017-03-28] MEDS: NICOTINE 14 MG/24 HOURS TOPICAL PATCH TD SCH (10:31)
[2017-03-28] MEDS: diphenhydrAMINE HCL 50 MG CAPSULE PO PRN (21:55)
[2017-03-28] MEDS: DOXEPIN HCL 25 MG CAPSULE PO SCH (21:55)
[2017-03-28] MEDS: OLANZapine 5 MG TABLET PO SCH (21:55)
[2017-03-28] MEDS: THIAMINE HCL 100 MG TABLET (FP) PO SCH (21:58)
[2017-03-29] MEDS: ACAMPROSATE CALCIUM 333 MG TABLET.DR PO SCH ×3 (06:36→21:34)
[2017-03-29] MEDS: PRENATAL VITAMINS W/ FOLIC ACID TABLET (FP) PO SCH (10:07)
[2017-03-29] MEDS: NICOTINE 14 MG/24 HOURS TOPICAL PATCH TD SCH (10:08)
[2017-03-29] MEDS: CARBAMIDE PEROXIDE 6.5% OTIC 15 ML BOTTLE AU SCH ×2 (10:08→21:34)
[2017-03-29] MEDS: THIAMINE HCL 100 MG TABLET (FP) PO SCH (21:34)
[2017-03-29] MEDS: DOXEPIN HCL 25 MG CAPSULE PO SCH (21:34)
[2017-03-29] MEDS: OLANZapine 5 MG TABLET PO SCH (21:34)
[2017-03-29] MEDS: ACETAMINOPHEN 325 MG TABLET (FP) PO PRN (21:35)
[2017-03-29] MEDS: diphenhydrAMINE HCL 50 MG CAPSULE PO PRN (21:35)
[2017-03-30] MEDS: ACAMPROSATE CALCIUM 333 MG TABLET.DR PO SCH ×3 (06:33→21:37)
[2017-03-30] MEDS: ACETAMINOPHEN 325 MG TABLET (FP) PO PRN (07:35)
[2017-03-30] MEDS: PRENATAL VITAMINS W/ FOLIC ACID TABLET (FP) PO SCH (10:40)
[2017-03-30] MEDS: NICOTINE 14 MG/24 HOURS TOPICAL PATCH TD SCH (10:40)
[2017-03-30] MEDS: CARBAMIDE PEROXIDE 6.5% OTIC 15 ML BOTTLE AU SCH ×2 (10:42→21:37)
[2017-03-30] MEDS: DOXEPIN HCL 25 MG CAPSULE PO SCH (21:37)
[2017-03-30] MEDS: THIAMINE HCL 100 MG TABLET (FP) PO SCH (21:37)
[2017-03-30] MEDS: OLANZapine 5 MG TABLET PO SCH (21:37)
[2017-03-30] MEDS: diphenhydrAMINE HCL 50 MG CAPSULE PO PRN (21:38)
[2017-03-31] MEDS: ACAMPROSATE CALCIUM 333 MG TABLET.DR PO SCH ×3 (06:21→21:55)
[2017-03-31] MEDS: PRENATAL VITAMINS W/ FOLIC ACID TABLET (FP) PO SCH (10:12)
[2017-03-31] MEDS: ACETAMINOPHEN 325 MG TABLET (FP) PO PRN ×2 (10:12→21:55)
[2017-03-31] MEDS: CARBAMIDE PEROXIDE 6.5% OTIC 15 ML BOTTLE AU SCH ×2 (10:12→23:34)
[2017-03-31] MEDS: NICOTINE 14 MG/24 HOURS TOPICAL PATCH TD SCH (10:12)
[2017-03-31] MEDS: diphenhydrAMINE HCL 50 MG CAPSULE PO PRN (21:55)
[2017-03-31] MEDS: THIAMINE HCL 100 MG TABLET (FP) PO SCH (21:55)
[2017-03-31] MEDS: DOXEPIN HCL 25 MG CAPSULE PO SCH (21:55)
[2017-03-31] MEDS: OLANZapine 5 MG TABLET PO SCH (23:34)
[2017-04-01] MEDS: ACAMPROSATE CALCIUM 333 MG TABLET.DR PO SCH (06:56)
[2017-04-01 06:58] VITALS: BP 136/95; PULSE 72; TEMP 98
[2017-04-01] MEDS: IBUPROFEN 400 MG TABLET (FP) PO PRN (06:58)
[2017-04-01] MEDS ORDERED: PT OWN MED DRAWER 7, Y5N ONE (07:00)
[2017-04-01] MEDS: NICOTINE 14 MG/24 HOURS TOPICAL PATCH TD SCH (09:46)
[2017-04-01] MEDS: PRENATAL VITAMINS W/ FOLIC ACID TABLET (FP) PO SCH (09:47)
[2017-04-01] MEDS: CARBAMIDE PEROXIDE 6.5% OTIC 15 ML BOTTLE AU SCH (09:48)
== END 2017-04-01 10:45 | disposition home or self-care (01) | DRG 772 ==
LOC: YASAS 12:33 → Y5N 12:36
PROVIDERS: ADMIT Psychiatry & Neurology Psychiatry; ATTEND Psychiatry & Neurology Psychiatry
PROC: HZ42ZZZ Group Counseling for Substance Abuse Treatment, Cognitive-Behavioral (ICD-10-PCS; principal; 2017-03-18)
DX: F10.20 Alcohol dependence, uncomplicated (principal); F17.210 Nicotine dependence, cigarettes, uncomplicated; F25.9 Schizoaffective disorder, unspecified

== ENCOUNTER 2017-07-02 21:52 | Inpatient (IN) | payer OTHER ==
[2017-07-02] MEDS ORDERED: P-EPHED 60MG/TRIPROLIDI 2.5MG TABLET PO PRN (22:54)
[2017-07-02] MEDS ORDERED: MAG HYDROX/AL HYDROX/SIMETH 30 ML UNIT-DOSE CUP PO PRN (22:54)
[2017-07-02] MEDS ORDERED: LOPERAMIDE HCL 2 MG CAPSULE PO PRN (22:54)
[2017-07-02] MEDS ORDERED: ACETAMINOPHEN 325 MG TABLET (FP) PO PRN (22:54)
[2017-07-02] MEDS ORDERED: MENTHOL/PHENOL 1 EACH UD MM PRN (22:54)
[2017-07-02] MEDS ORDERED: MAGNESIUM HYDROX 2400MG/30ML ORAL SUSPENSION 30 ML CUP PO PRN (22:54)
[2017-07-02] MEDS ORDERED: chlordiazePOXIDE HCL 25 MG CAPSULE PO PRN (22:54)
[2017-07-02] MEDS ORDERED: guaiFENesin/D-METHORPHAN HB 10 ML UNIT-DOSE CUPS PO PRN (22:54)
[2017-07-02] MEDS ORDERED: MAGNESIUM CITRATE 300 ML BOTTLE PO PRN (22:54)
--- NOTE | 2017-07-02 23:02 | HP ---
CIWA Score - CIWA Score Nausea/Vomitin-Mild Nausea/No Vomiting Muscle Tremors: 4-Moderate,w/Arms Extend Anxiety: 4-Mod. Anxious/Guarded Agitation: 4-Moderately Restless Paroxysmal Sweats: 3 Orientation: 1-Uncertain about Date Tacttile Disturbances: 3-Moderate Itch/Numb/Burn Auditory Disturbances: 0-None Visual Disturbances: 0-None Headache: 2-Mild CIWA-Ar Total Score: 22 Admission ROS BHS - HPI Chief Complaint: c/o alcoholism with withdrawal sx's. seeking detox txment Allergies/Adverse Reactions: Allergies Allergy/AdvReac Type Severity Reaction Status Date / Time No Known Allergies Allergy Verified 03/18/17 12:47 History of Present Illness: 57 Y.O. MALE WITH ALCOHOLISM ADMITTED TO DETOX. CLIENT IS KNOWN TO US. LAST HERE IN MARCH OF 2017. SELF REFERRED. DENIES ANY SIGNIFICANT PERIOD OF CLEAN TIME Exam Limitations: No Limitations - Ebola screening Have you traveled outside of the country in the last 21 days: No (N) Have you had contact with anyone from an Ebola affected area: No Do you have a fever: No - Review of Systems Constitutional: Chills, Loss of Appetite, Night Sweats, Unintentional Wgt. Loss EENT: reports: Tearing, Dental Problems (MISSING TEETH) Respiratory: reports: No Symptoms reported Cardiac: reports: No Symptoms Reported GI: reports: Nausea, Poor Appetite, Poor Fluid Intake : reports: No Symptoms Reported Musculoskeletal: reports: Back Pain Integumentary: reports: No Symptoms Reported Neuro: reports: No Symptoms reported Endocrine: reports: No Symptoms Reported Hematology: reports: No Symptoms Reported Psychiatric: reports: Anxious, Depressed (DENIES SI/HI) Other Systems: Reviewed and Negative Patient History - Patient Medical History Hx Anemia: No Hx Asthma: No Hx Chronic Obstructive Pulmonary Disease (COPD): No Hx Cancer: No Hx Cardiac Disorders: No Hx Congestive Heart Failure: No Hx Hypertension: No Hx Hypercholesterolemia: No Hx Pacemaker: No HX Cerebrovascular Accident: No Hx Seizures: No Hx Dementia: No Hx Diabetes: No Hx Gastrointestinal Disorders: No Hx Liver Disease: No Hx Genitourinary Disorders: No Hx Sexually Transmitted Disorders: No Hx Renal Disease (ESRD): No Hx Thyroid Disease: No Hx Human Immunodeficiency Virus (HIV): No Hx Hepatitis C: No Hx Depression: Yes Hx Suicide Attempt: No Hx Bipolar Disorder: No Hx Schizophrenia: No Other Medical History: DENIES - Patient Surgical History Past Surgical History: Yes Hx Neurologic Surgery: No Hx Cataract Extraction: No Hx Cardiac Surgery: No Hx Lung Surgery: No Hx Breast Surgery: No Hx Breast Biopsy: No Hx Abdominal Surgery: No Hx Appendectomy: No Hx Cholecystectomy: No Hx Genitourinary Surgery: No Hx Section: No Hx Orthopedic Surgery: Yes (LT KNEE SX) Anesthesia Reaction: No - PPD History Previous Implant?: Yes Documented Results: Positive w/o proof Implanted On Prior [facility] Admission?: No Results: 02/25/17 NEG CX PPD to be Administered?: No - Smoking Cessation Smoking history: Current some day smoker Have you smoked in the past 12 months: Yes Aproximately how many cigarettes per day: 10 Cigars Per Day: 0 Hx Chewing Tobacco Use: No Initiated information on smoking cessation: Yes 'Breaking Loose' booklet given: 07/02/17 - Substance & Tx. History Hx Alcohol Use: Yes Hx Substance Use: No Substance Use Type: Alcohol Hx Substance Use Treatment: Yes ([facility]) - Substances Abused LIQUOR Route: Oral Frequency: Daily Amount used: 2 PINTS Age of first use: 19 Date of Last Use: 07/02/17 Family Disease History - Family Disease History Family Disease History: Other: Brother (alcohol,dsa) Admission Physical Exam [facility] - Physical General Appearance: Yes: Disheveled, Mild Distress, Alcohol on Breath, Intoxicated, Tremorous, Irritable, Sweating, Anxious, Other (INCONTINET OF URINE , MALODUROUS) HEENTM: Yes: EOMI, Normocephalic, MISSY, Pharynx Normal, Other (MISSING TEETH) Respiratory: Yes: Chest Non-Tender, Lungs Clear, Normal Breath Sounds, No Respiratory Distress, No Accessory Muscle Use Neck: Yes: No masses,lesions,Nodules, Supple, Trachea in good position Breast: Yes: Breast Exam Deferred Cardiology: Yes: Regular Rhythm, Regular Rate, S1, S2 Abdominal: Yes: Normal Bowel Sounds, Non Tender, Soft Genitourinary: Yes: Within Normal Limits Back: Yes: Within Normal Limits Musculoskeletal: Yes: full range of Motion, Gait Steady Extremities: Yes: Normal Range of Motion, Non-Tender, Tremors Neurological: Yes: Alert, Motor Strength 5/5 Integumentary: Yes: Warm, Other (SOILED WITH URINE) Lymphatic: Yes: Within Normal Limits - Diagnostic (1) Alcohol dependence with uncomplicated withdrawal Current Visit: No Status: Chronic (2) Nicotine dependence Current Visit: No Status: Chronic Qualifiers: Nicotine product type: cigarettes Substance use status: uncomplicated Qualified Code(s): F17.210 - Nicotine dependence, cigarettes, uncomplicated Cleared for Admission S - Detox or Rehab [facility] Level of Care: Medically Managed Detox Regimen/Protocol: Librium BHS Breath Alcohol Content Breath Alcohol Content: 0.294 Vital Signs - Vital Signs Vital Signs Refused: No Temperature: 98.3 F Temperature Source: Oral Pulse Rate: 105 Respiratory Rate: 20 Blood Pressure: 125/82 BP Location: Left Arm Blood Pressure Position: Sitting - Height Height: 5 ft 6 in - Weight Weight: 61.689 kg Weight Measurement Method: Standing Scale Body Mass Index (BMI): 21.9 - Bowel Function Bowel Movement: No Urine Drug Screen - Test Device Lot Number: [id number] Expiration Date: 03/12/19 - Control Is Test Valid: Yes - Results Drug Screen Negative: Yes
[2017-07-02 23:06] VITALS: BMI 21.9
[2017-07-03] MEDS: chlordiazePOXIDE HCL 25 MG CAPSULE PO SCH ×5 (00:51→22:15)
[2017-07-03] MEDS: hydrOXYzine PAMOATE 50 MG CAPSULE (FP) PO PRN ×2 (00:56→22:17)
[2017-07-03] MEDS: IBUPROFEN 400 MG TABLET (FP) PO PRN ×2 (00:56→22:17)
--- NOTE | 2017-07-03 06:44 | CONSULT ---
[facility] Psychiatric Consult - Data Date of interview: 07/03/17 Admission source: Self-referred Identifying data: Mr Myles is a 57 years old single Black male, father of an 18 years old son, unemployed on SSI, domiciled seeking detox treatment for alcohol Substance Abuse History: Reports history of alcohol use, He started drinking alcohol at age 19, consumes 2 pints of liquor daily. Last drank on 07/02/17 Medical History: Significant for history of treatment for PPD+ and orthosurgery for repair of ligament left knee. Smokes 10 cigarettes daily Psychiatric History: Reports being diagnosed with depression and has had 2 previous psychiatric admissions while incarcerated. Reports that depression stemmed from of his parents and brother and legal issues. First admission was while at [facility] more than 15 years ago and second to [facility] while in [facility] in 2009. Reports non adherence to OPD care and medications. In the past he received OPD care at the [facility] with Dr Do and at [facility]. Reports that he was last on medication(Zyprexa 5 mg po HS, Doxepin 25 mg po HS) while on inpatient rehab in this facility in Mar 2017. Reports feeling sad and sleeping poorly. Facility record shows that previous diagnosis of Substance-induced Mood disorder and Schizoaffective Disorder Physical/Sexual Abuse/Trauma History: Denies history of emotional, physical or sexual abuse as well as DV relationship Additional Comment: Reports history of previous arrests including 4 felony convictions. Denies parole/probation at present Mental Status Exam - Mental Status Exam Alert and Oriented to: Time, Place, Person Cognitive Function: Fair Patient Appearance: Disheveled Mood: Sad Patient Behavior: Cooperative Speech Pattern: Clear Voice Loudness: Normal Thought Process: Intact, Goal Oriented Hallucinations: Denies Homicidal Ideation: Denies Insight/Judgement: Poor Sleep: Poorly Appetite: Poor Muscle strength/Tone: Normal Gait/Station: Normal Psychiatric Findings - Problem List ([place] 1, 2,3) (1) Substance induced mood disorder Current Visit: Yes Status: Acute (2) Schizoaffective disorder Current Visit: No Status: Ruled-out (3) Substance-induced sleep disorder Current Visit: Yes Status: Acute (4) Alcohol dependence with uncomplicated intoxication Current Visit: No Status: Acute (5) Nicotine dependence Current Visit: Yes Status: Chronic (6) Knee pain, left Current Visit: No Status: Acute (7) Anxiety and depression Current Visit: No Status: Chronic (8) PPD positive, treated Current Visit: Yes Status: Resolved - Initial Treatment Plan Initial Treatment Plan: 1) Start Doxepin 25 mg po HS and Zyprexa 5 mg po HS. 2 ) Continue inpatient detoxification
[2017-07-03] MEDS: NICOTINE 14 MG/24 HOURS TOPICAL PATCH TD SCH (10:19)
[2017-07-03] MEDS: PRENATAL VITAMINS W/ FOLIC ACID TABLET (FP) PO SCH (10:19)
[2017-07-03 10:23] LABS: HEMATOCRIT 35.6 % (35.4-49); HEMOGLOBIN 11.7 GM/dL (11.7-16.9); MCH 28.4 pg (25.7-33.7); MCHC 32.9 g/dl (32.0-35.9); MEAN CELL VOLUME 86.4 fl (80-96); MEAN PLT VOLUME 8.4 fl (7.5-11.1); PLATELET COUNT 177 K/MM3 (134-434); RBC 4.12 M/mm3 (4.00-5.60); RDW 15.4 % (11.9-15.9); WHITE BLOOD COUNT 2.3 K/mm3 (4.0-10.0)
[2017-07-03 10:36] LABS: ALBUMIN 3.7 g/dl (3.4-5.0); ANION GAP 11 (8-16); BLOOD UREA NITROGEN 14 mg/dL (7-18); CALCIUM 8.9 mg/dL (8.5-10.1); CHLORIDE 101 mmol/L (98-107); CO2 26 mmol/L (21-32); CREATININE 0.8 mg/dL (0.7-1.3); GLUCOSE,RANDOM 73 mg/dL (74-106); POTASSIUM 3.7 mmol/L (3.5-5.1); SODIUM 138 mmol/L (136-145)
[2017-07-03 10:40] LABS: ALK PHOS 86 U/L (45-117); BILIRUBIN,TOTAL 0.5 mg/dL (0.2-1.0); SGOT/AST 31 U/L (15-37); SGPT/ALT 27 U/L (12-78); TOT PROT 7.6 g/dl (6.4-8.2)
[2017-07-03 12:34] LABS: URINE APPEARANCE CLEAR; URINE BILIRUBIN NEGATIVE (NEGATIVE); URINE BLOOD NEGATIVE (NEGATIVE); URINE COLOR YELLOW; URINE GLUCOSE (UA) NEGATIVE (NEGATIVE); URINE KETONE NEGATIVE (NEGATIVE); URINE LEUK ESTERASE NEGATIVE (NEGATIVE); URINE NITRITE NEGATIVE (NEGATIVE); URINE PROTEIN NEGATIVE (NEGATIVE); URINE UROBILINOGEN NEGATIVE mg/dL (0.2-1.0)
--- NOTE | 2017-07-03 12:49 | EKG ---
Test Reason : Blood Pressure : / mmHG Vent. Rate : 092 BPM Atrial Rate : 092 BPM P-R Int : 174 ms QRS Dur : 106 ms QT Int : 362 ms P-R-T Axes : 071 079 058 degrees QTc Int : 447 ms NORMAL SINUS RHYTHM LEFT ATRIAL ENLARGEMENT BORDERLINE ECG WHEN COMPARED WITH ECG OF 14-MAR-2017 15:54, QRS AXIS SHIFTED RIGHT T WAVE INVERSION NO LONGER EVIDENT IN INFERIOR LEADS Confirmed by Heriberto Posadas ([id number]) on 07/03/2017 12:48:59 PM Referred By: Jared Agustin Confirmed By:Heriberto Posadas
--- NOTE | 2017-07-03 15:34 | PN ---
[facility] CIWA - CIWA Score Nausea/Vomitin-No Nausea/No Vomiting Muscle Tremors: 3 Anxiety: 4-Mod. Anxious/Guarded Agitation: 4-Moderately Restless Paroxysmal Sweats: 4-Forehead w/Sweat Beads Orientation: 0-Oriented Tacttile Disturbances: 1-Very Mild Itch/Numbness Auditory Disturbances: 0-None Visual Disturbances: 0-None Headache: 0-None Present CIWA-Ar Total Score: 16 BHS Progress Note (SOAP) Subjective: Sweating, anxious, interrupted sleep Objective: 07/03/17 15:33 Last Vital Signs Temp Pulse Resp BP Pulse Ox 98.5 F 18 L 90 H 123/79 07/03/17 13:21 07/03/17 13:21 07/03/17 13:21 07/03/17 13:21 Laboratory Tests 07/03/17 07/03/17 07/03/17 07:40 07:40 07:40 WBC 2.3 L RBC 4.12 Hgb 11.7 Hct 35.6 MCV 86.4 MCH 28.4 MCHC 32.9 RDW 15.4 Plt Count 177 D MPV 8.4 Sodium 138 Potassium 3.7 Chloride 101 Carbon Dioxide 26 Anion Gap 11 BUN 14 D Creatinine 0.8 Creat Clearance w eGFR > 60 Random Glucose 73 L Calcium 8.9 Total Bilirubin 0.5 D AST 31 D ALT 27 Alkaline Phosphatase 86 Total Protein 7.6 Albumin 3.7 Urine Color Urine Appearance Urine pH Ur Specific [place] Urine Protein Urine Glucose (UA) Urine Ketones Urine Blood Urine Nitrite Urine Bilirubin Urine Urobilinogen Ur Leukocyte Esterase RPR Titer Nonreactive HIV 1&2 Antibody Screen HIV P24 Antigen 07/03/17 07/03/17 07:40 10:56 WBC RBC Hgb Hct MCV MCH MCHC RDW Plt Count MPV Sodium Potassium Chloride Carbon Dioxide Anion Gap BUN Creatinine Creat Clearance w eGFR Random Glucose Calcium Total Bilirubin AST ALT Alkaline Phosphatase Total Protein Albumin Urine Color Yellow Urine Appearance Clear Urine pH 5.0 Ur Specific [place] 1.017 Urine Protein Negative Urine Glucose (UA) Negative Urine Ketones Negative Urine Blood Negative Urine Nitrite Negative Urine Bilirubin Negative Urine Urobilinogen Negative Ur Leukocyte Esterase Negative RPR Titer HIV 1&2 Antibody Screen Negative HIV P24 Antigen Negative Labs noted Assessment: 07/03/17 15:33 Withdrawal symptoms Plan: Continue detox Encouraged to drink more water for hydration
[2017-07-03] MEDS: THIAMINE HCL 100 MG TABLET (FP) PO SCH (22:15)
[2017-07-04] MEDS: chlordiazePOXIDE HCL 25 MG CAPSULE PO SCH ×3 (05:35→17:14)
[2017-07-04] MEDS: PRENATAL VITAMINS W/ FOLIC ACID TABLET (FP) PO SCH (10:12)
[2017-07-04] MEDS: NICOTINE 14 MG/24 HOURS TOPICAL PATCH TD SCH (10:14)
--- NOTE | 2017-07-04 11:34 | PN ---
[facility] CIWA - CIWA Score Nausea/Vomitin-No Nausea/No Vomiting Muscle Tremors: 4-Moderate,w/Arms Extend Anxiety: 4-Mod. Anxious/Guarded Agitation: 4-Moderately Restless Paroxysmal Sweats: 1-Minimal Palms Moist Orientation: 0-Oriented Tacttile Disturbances: 3-Moderate Itch/Numb/Burn Auditory Disturbances: 0-None Visual Disturbances: 0-None Headache: 0-None Present CIWA-Ar Total Score: 16 BHS Progress Note (SOAP) Subjective: ANXIETY,SWEATS, TREMORS,FATIGUE. Objective: 07/04/17 11:32 Vital Signs Temperature 98.1 F 07/04/17 09:40 Pulse Rate 73 07/04/17 09:40 Respiratory Rate 18 07/04/17 09:40 Blood Pressure 123/74 07/04/17 09:40 O2 Sat by Pulse Oximetry (%) Laboratory Last Values WBC 2.3 K/mm3 (4.0-10.0) L 07/03/17 07:40 RBC 4.12 M/mm3 (4.00-5.60) 07/03/17 07:40 Hgb 11.7 GM/dL (11.7-16.9) 07/03/17 07:40 Hct 35.6 % (35.4-49) 07/03/17 07:40 MCV 86.4 fl (80-96) 07/03/17 07:40 MCH 28.4 pg (25.7-33.7) 07/03/17 07:40 MCHC 32.9 g/dl (32.0-35.9) 07/03/17 07:40 RDW 15.4 % (11.9-15.9) 07/03/17 07:40 Plt Count 177 K/MM3 (134-434) D 07/03/17 07:40 MPV 8.4 fl (7.5-11.1) 07/03/17 07:40 Sodium 138 mmol/L (136-145) 07/03/17 07:40 Potassium 3.7 mmol/L (3.5-5.1) 07/03/17 07:40 Chloride 101 mmol/L (98-107) 07/03/17 07:40 Carbon Dioxide 26 mmol/L (21-32) 07/03/17 07:40 Anion Gap 11 (8-16) 07/03/17 07:40 BUN 14 mg/dL (7-18) D 07/03/17 07:40 Creatinine 0.8 mg/dL (0.7-1.3) 07/03/17 07:40 Creat Clearance w eGFR > 60 (>60) 07/03/17 07:40 Random Glucose 73 mg/dL (74-106) L 07/03/17 07:40 Calcium 8.9 mg/dL (8.5-10.1) 07/03/17 07:40 Total Bilirubin 0.5 mg/dL (0.2-1.0) D 07/03/17 07:40 AST 31 U/L (15-37) D 07/03/17 07:40 ALT 27 U/L (12-78) 07/03/17 07:40 Alkaline Phosphatase 86 U/L (45-117) 07/03/17 07:40 Total Protein 7.6 g/dl (6.4-8.2) 07/03/17 07:40 Albumin 3.7 g/dl (3.4-5.0) 07/03/17 07:40 Urine Color Yellow 07/03/17 10:56 Urine Appearance Clear 07/03/17 10:56 Urine pH 5.0 (5.0-8.0) 07/03/17 10:56 Ur Specific [place] 1.017 (1.001-1.035) 07/03/17 10:56 Urine Protein Negative (NEGATIVE) 07/03/17 10:56 Urine Glucose (UA) Negative (NEGATIVE) 07/03/17 10:56 Urine Ketones Negative (NEGATIVE) 07/03/17 10:56 Urine Blood Negative (NEGATIVE) 07/03/17 10:56 Urine Nitrite Negative (NEGATIVE) 07/03/17 10:56 Urine Bilirubin Negative (NEGATIVE) 07/03/17 10:56 Urine Urobilinogen Negative mg/dL (0.2-1.0) 07/03/17 10:56 Ur Leukocyte Esterase Negative (NEGATIVE) 07/03/17 10:56 RPR Titer Nonreactive (NONREACTIVE) 07/03/17 07:40 HIV 1&2 Antibody Screen Negative 07/03/17 07:40 HIV P24 Antigen Negative 07/03/17 07:40 Assessment: 07/04/17 11:32 WITHDRAWAL SX Plan: CONTINUE DETOX
[2017-07-04] MEDS: THIAMINE HCL 100 MG TABLET (FP) PO SCH (22:10)
[2017-07-04] MEDS: chlordiazePOXIDE 5 MG CAPSULE PO SCH (22:10)
[2017-07-04] MEDS: hydrOXYzine PAMOATE 50 MG CAPSULE (FP) PO PRN (22:11)
[2017-07-05] MEDS: chlordiazePOXIDE 5 MG CAPSULE PO SCH ×3 (05:11→17:56)
[2017-07-05] MEDS: PRENATAL VITAMINS W/ FOLIC ACID TABLET (FP) PO SCH (10:07)
[2017-07-05] MEDS: NICOTINE 14 MG/24 HOURS TOPICAL PATCH TD SCH (10:07)
--- NOTE | 2017-07-05 10:11 | PN ---
BHS Progress Note (SOAP) Subjective: SLIGHT ANXIETY,SWEATS. ALERT O X 3. OOB WITH STEADY GAIT. Objective: 07/05/17 10:11 Vital Signs Temperature 97.0 F L 07/05/17 09:22 Pulse Rate 79 07/05/17 09:22 Respiratory Rate 18 07/05/17 09:22 Blood Pressure 133/76 07/05/17 09:22 O2 Sat by Pulse Oximetry (%) Laboratory Last Values WBC 2.3 K/mm3 (4.0-10.0) L 07/03/17 07:40 RBC 4.12 M/mm3 (4.00-5.60) 07/03/17 07:40 Hgb 11.7 GM/dL (11.7-16.9) 07/03/17 07:40 Hct 35.6 % (35.4-49) 07/03/17 07:40 MCV 86.4 fl (80-96) 07/03/17 07:40 MCH 28.4 pg (25.7-33.7) 07/03/17 07:40 MCHC 32.9 g/dl (32.0-35.9) 07/03/17 07:40 RDW 15.4 % (11.9-15.9) 07/03/17 07:40 Plt Count 177 K/MM3 (134-434) D 07/03/17 07:40 MPV 8.4 fl (7.5-11.1) 07/03/17 07:40 Sodium 138 mmol/L (136-145) 07/03/17 07:40 Potassium 3.7 mmol/L (3.5-5.1) 07/03/17 07:40 Chloride 101 mmol/L (98-107) 07/03/17 07:40 Carbon Dioxide 26 mmol/L (21-32) 07/03/17 07:40 Anion Gap 11 (8-16) 07/03/17 07:40 BUN 14 mg/dL (7-18) D 07/03/17 07:40 Creatinine 0.8 mg/dL (0.7-1.3) 07/03/17 07:40 Creat Clearance w eGFR > 60 (>60) 07/03/17 07:40 Random Glucose 73 mg/dL (74-106) L 07/03/17 07:40 Calcium 8.9 mg/dL (8.5-10.1) 07/03/17 07:40 Total Bilirubin 0.5 mg/dL (0.2-1.0) D 07/03/17 07:40 AST 31 U/L (15-37) D 07/03/17 07:40 ALT 27 U/L (12-78) 07/03/17 07:40 Alkaline Phosphatase 86 U/L (45-117) 07/03/17 07:40 Total Protein 7.6 g/dl (6.4-8.2) 07/03/17 07:40 Albumin 3.7 g/dl (3.4-5.0) 07/03/17 07:40 Urine Color Yellow 07/03/17 10:56 Urine Appearance Clear 07/03/17 10:56 Urine pH 5.0 (5.0-8.0) 07/03/17 10:56 Ur Specific [place] 1.017 (1.001-1.035) 07/03/17 10:56 Urine Protein Negative (NEGATIVE) 07/03/17 10:56 Urine Glucose (UA) Negative (NEGATIVE) 07/03/17 10:56 Urine Ketones Negative (NEGATIVE) 07/03/17 10:56 Urine Blood Negative (NEGATIVE) 07/03/17 10:56 Urine Nitrite Negative (NEGATIVE) 07/03/17 10:56 Urine Bilirubin Negative (NEGATIVE) 07/03/17 10:56 Urine Urobilinogen Negative mg/dL (0.2-1.0) 07/03/17 10:56 Ur Leukocyte Esterase Negative (NEGATIVE) 07/03/17 10:56 RPR Titer Nonreactive (NONREACTIVE) 07/03/17 07:40 HIV 1&2 Antibody Screen Negative 07/03/17 07:40 HIV P24 Antigen Negative 07/03/17 07:40 Assessment: 07/05/17 10:11 WITHDRAWAL SX Plan: CONTINUE DETOX
[2017-07-05] MEDS: IBUPROFEN 400 MG TABLET (FP) PO PRN ×2 (14:01→22:31)
[2017-07-05] MEDS: chlordiazePOXIDE HCL 10 MG CAPSULE PO SCH (22:31)
[2017-07-05] MEDS: THIAMINE HCL 100 MG TABLET (FP) PO SCH (22:32)
[2017-07-05] MEDS: hydrOXYzine PAMOATE 50 MG CAPSULE (FP) PO PRN (22:32)
[2017-07-06] MEDS: chlordiazePOXIDE HCL 10 MG CAPSULE PO SCH (05:22)
[2017-07-06 09:49] VITALS: BP 136/82; PULSE 68; TEMP 97.9
--- NOTE | 2017-07-06 13:02 | DS ---
[facility] Detox Discharge Summary Admission Date: 07/02/17 Discharge Date: 07/06/17 - History Present History: Alcohol Dependence Additional Comments: DETOX COMPLETED. ALERT O X 3.NAD. PT INSTRUCTED TO FOLLOW UP WITH HIS PMD AT [facility]. Pertinent Past History: WITHDRAWAL SX - Physical Exam Results Vital Signs: Vital Signs Temperature 97.9 F 07/06/17 09:48 Pulse Rate 68 07/06/17 09:48 Respiratory Rate 19 07/06/17 09:48 Blood Pressure 136/82 07/06/17 09:48 O2 Sat by Pulse Oximetry (%) Pertinent Admission Physical Exam Findings: WITHDRAWAL SX Laboratory Last Values WBC 2.3 K/mm3 (4.0-10.0) L 07/03/17 07:40 RBC 4.12 M/mm3 (4.00-5.60) 07/03/17 07:40 Hgb 11.7 GM/dL (11.7-16.9) 07/03/17 07:40 Hct 35.6 % (35.4-49) 07/03/17 07:40 MCV 86.4 fl (80-96) 07/03/17 07:40 MCH 28.4 pg (25.7-33.7) 07/03/17 07:40 MCHC 32.9 g/dl (32.0-35.9) 07/03/17 07:40 RDW 15.4 % (11.9-15.9) 07/03/17 07:40 Plt Count 177 K/MM3 (134-434) D 07/03/17 07:40 MPV 8.4 fl (7.5-11.1) 07/03/17 07:40 Sodium 138 mmol/L (136-145) 07/03/17 07:40 Potassium 3.7 mmol/L (3.5-5.1) 07/03/17 07:40 Chloride 101 mmol/L (98-107) 07/03/17 07:40 Carbon Dioxide 26 mmol/L (21-32) 07/03/17 07:40 Anion Gap 11 (8-16) 07/03/17 07:40 BUN 14 mg/dL (7-18) D 07/03/17 07:40 Creatinine 0.8 mg/dL (0.7-1.3) 07/03/17 07:40 Creat Clearance w eGFR > 60 (>60) 07/03/17 07:40 Random Glucose 73 mg/dL (74-106) L 07/03/17 07:40 Calcium 8.9 mg/dL (8.5-10.1) 07/03/17 07:40 Total Bilirubin 0.5 mg/dL (0.2-1.0) D 07/03/17 07:40 AST 31 U/L (15-37) D 07/03/17 07:40 ALT 27 U/L (12-78) 07/03/17 07:40 Alkaline Phosphatase 86 U/L (45-117) 07/03/17 07:40 Total Protein 7.6 g/dl (6.4-8.2) 07/03/17 07:40 Albumin 3.7 g/dl (3.4-5.0) 07/03/17 07:40 Urine Color Yellow 07/03/17 10:56 Urine Appearance Clear 07/03/17 10:56 Urine pH 5.0 (5.0-8.0) 07/03/17 10:56 Ur Specific Enterprise 1.017 (1.001-1.035) 07/03/17 10:56 Urine Protein Negative (NEGATIVE) 07/03/17 10:56 Urine Glucose (UA) Negative (NEGATIVE) 07/03/17 10:56 Urine Ketones Negative (NEGATIVE) 07/03/17 10:56 Urine Blood Negative (NEGATIVE) 07/03/17 10:56 Urine Nitrite Negative (NEGATIVE) 07/03/17 10:56 Urine Bilirubin Negative (NEGATIVE) 07/03/17 10:56 Urine Urobilinogen Negative mg/dL (0.2-1.0) 07/03/17 10:56 Ur Leukocyte Esterase Negative (NEGATIVE) 07/03/17 10:56 RPR Titer Nonreactive (NONREACTIVE) 07/03/17 07:40 HIV 1&2 Antibody Screen Negative 07/03/17 07:40 HIV P24 Antigen Negative 07/03/17 07:40 - Treatment Hospital Course: Detox Protocol Followed, Detoxed Safely, Responded well, Discharged Condition Good - Medication Discharge Medications: Ambulatory Orders Olanzapine [Zyprexa -] 20 mg PO HS #30 tablet 12/01/16 - Diagnosis (1) Nicotine dependence Status: Acute Qualifiers: Nicotine product type: cigarettes Substance use status: in withdrawal Qualified Code(s): F17.213 - Nicotine dependence, cigarettes, with withdrawal (2) Alcohol dependence with uncomplicated withdrawal Status: Acute (3) Seizure Status: Suspected - AMA Did Patient Leave Against Medical Advice: No
== END 2017-07-06 09:18 | disposition home or self-care (01) | DRG 775 ==
LOC: YASAS 21:52 → Y3N 23:10
PROVIDERS: ADMIT Internal Medicine; ATTEND Internal Medicine
PROC: HZ2ZZZZ Detoxification Services for Substance Abuse Treatment (ICD-10-PCS; principal; 2017-07-02)
DX: F10.230 Alcohol dependence with withdrawal, uncomplicated (principal); F17.213 Nicotine dependence, cigarettes, with withdrawal; F19.24 Other psychoactive substance dependence with psychoactive substance-induced mood disorder; F19.282 Other psychoactive substance dependence with psychoactive substance-induced sleep disorder; F25.9 Schizoaffective disorder, unspecified; F41.8 Other specified anxiety disorders; R76.11 Nonspecific reaction to tuberculin skin test without active tuberculosis
CPT/HCPCS: 36415; 80053; 81003; 85027; 86593; 87389; 93005; 93010

== ENCOUNTER 2017-07-06 20:59 | Emergency (ER) | payer OTHER ==
[2017-07-06 22:05] VITALS: BP 112/80; PULSE 91; TEMP 97.8; BMI 20.9
== END 2017-07-06 23:16 | disposition left against medical advice (07) ==
LOC: JER 20:59
DX: Z53.21 Procedure and treatment not carried out due to patient leaving prior to being seen by health care provider (principal)
CPT/HCPCS: 99281-25

== ENCOUNTER 2017-07-18 00:02 | Emergency (ER) | payer OTHER ==
[2017-07-18 00:17] VITALS: BP 126/82; PULSE 88; TEMP 97.1; BMI 29.2
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
== END 2017-07-18 06:57 | disposition home or self-care (01) ==
LOC: JER 00:02
DX: F10.120 Alcohol abuse with intoxication, uncomplicated (principal); F41.8 Other specified anxiety disorders; Y90.9 Presence of alcohol in blood, level not specified
CPT/HCPCS: 99282-25

== ENCOUNTER 2017-10-14 17:13 | Emergency (ER) | payer OTHER ==
[2017-10-14 18:02] VITALS: BP 96/57; PULSE 89; TEMP 97.7; BMI 25.8
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
--- NOTE | 2017-10-14 18:51 | PDOC ---
History of Present Illness - General Chief Complaint: Alcohol intoxication Stated Complaint: INTOX Time Seen by Provider: 10/14/17 17:34 History Source: Patient Exam Limitations: Intoxication - History of Present Illness Initial Comments: 10/14/17 18:57 57 male with h/o depression and etoh abuse, here because pt his family wanted him out of the building. Currently states he has no new complaints, c/o chronic left knee pain and low back pain. last drink was earlier today. states he drinks daily. paul h/o dt's or hallucinations. has been in rehab several times, and to ED for same several times. deja pt plans to go to a residential called [facility], says they open door at 10pm for sleeping. Past History - Past Medical History Allergies/Adverse Reactions: Allergies Allergy/AdvReac Type Severity Reaction Status Date / Time No Known Allergies Allergy Verified 07/18/17 00:11 Home Medications: Ambulatory Orders Olanzapine [Zyprexa -] 20 mg PO HS #30 tablet 12/01/16 Anemia: No Asthma: No Cancer: No Cardiac Disorders: No CVA: No COPD: No CHF: No Dementia: No Diabetes: No GI Disorders: No Disorders: No HTN: No Hypercholesterolemia: No Kidney Stones: No Liver Disease: No Psychiatric Problems: Yes (schizo) Seizures: No Thyroid Disease: No Other medical history: alcohol detox - Surgical History Abdominal Surgery: No Appendectomy: No Cardiac Surgery: No Cholecystectomy: No Lung Surgery: No Neurologic Surgery: No Orthopedic Surgery: Yes (LT KNEE SX) - Reproductive History Testicular Surgery: No - Immunization History Immunization Up to Date: Yes - Suicide/Smoking/Psychosocial Hx Smoking Status: Yes Smoking History: Unknown if ever smoked Have you smoked in the past 12 months: No Number of Cigarettes Smoked Daily: 10 Cigars Per Day: 0 Information on smoking cessation initiated: No 'Breaking Loose' booklet given: 07/02/17 Hx Alcohol Use: No Drug/Substance Use Hx: No Substance Use Type: Alcohol Hx Substance Use Treatment: Yes ([facility]) Review of Systems - Review of Systems Able to Perform ROS?: No (intoxicated) *Physical Exam - Vital Signs Last Vital Signs Temp Pulse Resp BP Pulse Ox 97.7 F 89 16 96/57 97 10/14/17 17:48 10/14/17 17:48 10/14/17 17:48 10/14/17 17:48 10/14/17 17:48 - Physical Exam General Appearance: Yes: Nourished, Intoxicated. No: Apparent Distress HEENT: positive: EOMI, MISSY, Normal ENT Inspection Respiratory/Chest: positive: Lungs Clear, Normal Breath Sounds. negative: Chest Tender, Respiratory Distress Cardiovascular: positive: Regular Rhythm, Regular Rate, S1, S2 Gastrointestinal/Abdominal: positive: Normal Bowel Sounds, Flat, Soft. negative : Tender Extremity: positive: Normal Capillary Refill, Normal Inspection, Normal Range of Motion Neurologic: positive: Other (slurred speech, intoxicated.) Medical Decision Making - Medical Decision Making 10/14/17 19:04 57 yo M with intoxication. plan reassess when sober, plan to [facility] [place] to residential. offered [facility] detox, pt declined. Patient signed out to DR. Cordova. *DC/Admit/Observation/Transfer Diagnosis at time of Disposition: Alcohol use with intoxication - Referrals - Patient Instructions - Post Discharge Activity
[2017-10-14 21:46] LABS: BASO % 1.1 % (0-2.0); EOS % 3.3 % (0-4.5); HEMATOCRIT 31.9 % (35.4-49); LYMPH % 32.5 % (8-40); MCH 30.7 pg (25.7-33.7); MCHC 34.6 g/dl (32.0-35.9); MEAN CELL VOLUME 88.8 fl (80-96); MEAN PLT VOLUME 9.1 fl (7.5-11.1); MONO % 12.5 % (3.8-10.2); NEUT % 50.6 % (42.8-82.8); PLATELET COUNT 213 K/MM3 (134-434); RBC 3.59 M/mm3 (4.00-5.60); RDW 14.1 % (11.9-15.9); WHITE BLOOD COUNT 2.9 K/mm3 (4.0-10.0)
[2017-10-14 22:12] LABS: ALBUMIN 3.3 g/dl (3.4-5.0); ALK PHOS 244 U/L (45-117); ANION GAP 5 (8-16); BILIRUBIN,TOTAL 1.7 mg/dL (0.2-1.0); BLOOD UREA NITROGEN 7 mg/dL (7-18); CALCIUM 8.4 mg/dL (8.5-10.1); CHLORIDE 111 mmol/L (98-107); CO2 27 mmol/L (21-32); CREATININE 0.7 mg/dL (0.7-1.3); GLUCOSE,RANDOM 100 mg/dL (74-106); POTASSIUM 3.8 mmol/L (3.5-5.1); SGOT/AST 360 U/L (15-37); SGPT/ALT 190 U/L (12-78); SODIUM 143 mmol/L (136-145); TOT PROT 6.7 g/dl (6.4-8.2)
== END 2017-10-14 22:47 | disposition left against medical advice (07) ==
LOC: JER 17:13
DX: F10.120 Alcohol abuse with intoxication, uncomplicated (principal); Y90.6 Blood alcohol level of 120-199 mg/100 ml; M54.5 Low back pain; M25.562 Pain in left knee; G89.29 Other chronic pain
CPT/HCPCS: 36415; 80053; 80307; 85025; 99283-25

== ENCOUNTER 2017-10-21 21:32 | Emergency (ER) | payer OTHER ==
[2017-10-21 22:02] VITALS: BP 140/62; PULSE 82; TEMP 98; BMI 29.0
--- NOTE | 2017-10-22 03:42 | PDOC ---
Attending Attestation - Resident Resident Name: Adolph Castellon - ED Attending Attestation I have performed the following: I have examined & evaluated the patient, The case was reviewed & discussed with the resident, I agree w/resident's findings & plan - HPI HPI: 10/23/17 00:43 Pt is alcohol intox, complaining of knee pain after a fall. No other complaints. Pt is also requesting detox. - Physicial Exam PE: 10/23/17 00:43 Agree with resident exam - Medical Decision Making 10/23/17 00:43 Pt's XRAYS are normal, exam normal. Pt sobered up a bit in the ER and he was transfered in the AM to our detox center at [facility].
[2017-10-22] MEDS ORDERED: IBUPROFEN 400 MG TABLET (FP) PO ONE ×2 (05:02→05:17)
[2017-10-22] MEDS ORDERED: ACETAMINOPHEN 325 MG TABLET (FP) PO ONE (05:02)
--- NOTE | 2017-10-22 05:12 | PDOC ---
History of Present Illness - General Stated Complaint: INTOX Time Seen by Provider: 10/22/17 02:13 History Source: Patient Exam Limitations: No Limitations - History of Present Illness Initial Comments: 10/22/17 05:05 Patient is a 57M with history of etoh abuse (18 beers per day), chronic back and knee pain, and depression here today complaining of intoxication, knee pain and back pain. He says that he fell two weeks ago. Denies LOC, fevers, chills, nausea, vomiting. Denies any trauma since two weeks ago. States that he was able to walk fine after the event. Denies history of withdrawals and seizures. Past History - Past Medical History Allergies/Adverse Reactions: Allergies Allergy/AdvReac Type Severity Reaction Status Date / Time No Known Allergies Allergy Verified 07/18/17 00:11 Home Medications: Ambulatory Orders Olanzapine [Zyprexa -] 20 mg PO HS #30 tablet 12/01/16 Anemia: No Asthma: No Cancer: No Cardiac Disorders: No CVA: No COPD: No CHF: No Dementia: No Diabetes: No GI Disorders: No Disorders: No HTN: No Hypercholesterolemia: No Kidney Stones: No Liver Disease: No Psychiatric Problems: Yes (schizo) Seizures: No Thyroid Disease: No - Surgical History Abdominal Surgery: No Appendectomy: No Cardiac Surgery: No Cholecystectomy: No Lung Surgery: No Neurologic Surgery: No Orthopedic Surgery: Yes (LT KNEE SX) - Reproductive History Testicular Surgery: No - Immunization History Immunization Up to Date: Yes - Suicide/Smoking/Psychosocial Hx Smoking Status: Yes Smoking History: Unknown if ever smoked Have you smoked in the past 12 months: No Number of Cigarettes Smoked Daily: 10 Cigars Per Day: 0 Information on smoking cessation initiated: No 'Breaking Loose' booklet given: 07/02/17 Hx Alcohol Use: No Drug/Substance Use Hx: No Substance Use Type: Alcohol Hx Substance Use Treatment: Yes ([facility]) Review of Systems - Review of Systems Comments:: 10/22/17 05:12 GENERAL/CONSTITUTIONAL: No fever or chills. No weakness. HEAD, EYES, EARS, NOSE AND THROAT: No change in vision. No sore throat. CARDIOVASCULAR: No chest pain or shortness of breath RESPIRATORY: No cough, wheezing, or hemoptysis. GASTROINTESTINAL: No nausea, vomiting, diarrhea or constipation. GENITOURINARY: No dysuria, frequency, or change in urination. MUSCULOSKELETAL: Positive for back and left knee pain. SKIN: No rash NEUROLOGIC: No headache, vertigo, loss of consciousness, or change in strength/ sensation. ENDOCRINE: No increased thirst. No abnormal weight change ALLERGIC/IMMUNOLOGIC: No hives or skin allergy. *Physical Exam - Vital Signs Last Vital Signs Temp Pulse Resp BP Pulse Ox 98.0 F 82 16 140/62 98 10/21/17 21:33 10/21/17 21:33 10/21/17 21:33 10/21/17 21:33 10/21/17 21:33 - Physical Exam Comments: 10/22/17 05:14 GENERAL: Awake, alert, and fully oriented, in no acute distress HEAD: No signs of trauma, normocephalic, atraumatic EYES: PERRLA, EOMI, sclera anicteric, conjunctiva clear ENT: Auricles normal inspection, hearing grossly normal, nares patent, oropharynx clear without exudates. Moist mucosa LUNGS: No distress, speaks full sentences, clear to auscultation bilaterally HEART: Regular rate and rhythm, normal S1 and S2, no murmurs, rubs or gallops, peripheral pulses normal and equal bilaterally. ABDOMEN: Soft, nontender, normoactive bowel sounds. No guarding, no rebound. No masses L LEG: Nontender knee, normal range of motion, neurovascularly intact. BACK: Nontender midline. Tender along lateral left inferior back. NEUROLOGICAL: Cranial nerves II through XII grossly intact. Normal speech, no focal sensorimotor deficits SKIN: Warm, Dry, normal turgor, no rashes or lesions noted. Medical Decision Making - Medical Decision Making 10/22/17 05:15 Patient is 57M with history of etoh abuse here today complaining of intox, back and knee pain. X-rays ordered. Knee x-ray shows arthritic changes, no fractures. Spine x-rays show narrowed joint space between L3/L4, otherwise no acute issues. Patient refusing detox, asking to be discharged during the day. *DC/Admit/Observation/Transfer Diagnosis at time of Disposition: Alcohol intoxication - Discharge Dispostion Disposition: HOME Condition at time of disposition: Good Decision to Admit order: No - Referrals Referrals: [facility] [place] [Provider Group] - Patient Instructions Printed Discharge Instructions: DI for Alcohol Abuse Additional Instructions: Please return if you have any new, worsening or concerning symptoms. Please follow up with your primary care physician. If you do not have a primary care physician, a number for one has been provided for you. - Post Discharge Activity
[2017-10-22] MEDS ORDERED: ACETAMINOPHEN 325 MG TABLET (FP) ONE (05:17)
== END 2017-10-22 06:48 | disposition home or self-care (01) ==
LOC: JER 21:32
DX: F10.120 Alcohol abuse with intoxication, uncomplicated (principal); M25.562 Pain in left knee; M54.5 Low back pain; W19.XXXA Unspecified fall, initial encounter; Y93.89 Activity, other specified; Y92.89 Other specified places as the place of occurrence of the external cause; Y99.8 Other external cause status
CPT/HCPCS: 72100-TC-FY; 73560-TC-LT-FY; 99281-25

== ENCOUNTER 2017-11-07 20:50 | Emergency (ER) | payer OTHER ==
[2017-11-07 21:00] VITALS: TEMP 98.2; BMI 27.4
--- NOTE | 2017-11-08 00:19 | PDOC ---
History of Present Illness - History of Present Illness Initial Comments: 11/08/17 02:17 The patient is a 57 year old male with a significant PMH of alcohol abuse who presents to the emergency department with lower back pain today. 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 The patient denies urinary incontinence. The patient reports he was drinking earlier today and typically drinks a 6-pack daily. The patient is requesting to go to detox. The patient denies chest pain, shortness of breath, headache and dizziness. Denies fever, chills, nausea, vomit, diarrhea and constipation. Denies dysuria, frequency, urgency and hematuria. Allergies: NKA Past surgical history: right knee surgery Social history: 6-pack daily, No reported drug or cigarette use. <Mignon Pichardo - Last Filed: 11/08/17 03:27> - General History Source: Patient Exam Limitations: No Limitations <Sharonda Patterson - Last Filed: 11/08/17 06:25> - General Chief Complaint: Pain Stated Complaint: Alcohol intoxication Time Seen by Provider: 11/08/17 00:18 Past History <Mignon Pichardo - Last Filed: 11/08/17 03:27> - Past Medical History Anemia: No Asthma: No Cancer: No Cardiac Disorders: No CVA: No COPD: No CHF: No Dementia: No Diabetes: No GI Disorders: No Disorders: No HTN: No Hypercholesterolemia: No Kidney Stones: No Liver Disease: No Psychiatric Problems: Yes (schizo) Seizures: No Thyroid Disease: No - Surgical History Abdominal Surgery: No Appendectomy: No Cardiac Surgery: No Cholecystectomy: No Lung Surgery: No Neurologic Surgery: No Orthopedic Surgery: Yes (LT KNEE SX) - Reproductive History Testicular Surgery: No - Immunization History Immunization Up to Date: Yes - Suicide/Smoking/Psychosocial Hx Smoking Status: Yes Smoking History: Never smoked Have you smoked in the past 12 months: No Number of Cigarettes Smoked Daily: 10 Cigars Per Day: 0 Information on smoking cessation initiated: No 'Breaking Loose' booklet given: 07/02/17 Hx Alcohol Use: Yes Drug/Substance Use Hx: No Substance Use Type: Alcohol Hx Substance Use Treatment: Yes ([facility]) <Sharonda Patterson - Last Filed: 11/08/17 06:25> - Past Medical History Allergies/Adverse Reactions: Allergies Allergy/AdvReac Type Severity Reaction Status Date / Time No Known Allergies Allergy Verified 11/07/17 21:00 Home Medications: Ambulatory Orders Olanzapine [Zyprexa -] 20 mg PO HS #30 tablet 12/01/16 Review of Systems - Review of Systems Able to Perform ROS?: Yes Comments:: 11/08/17 02:17 GENERAL/CONSTITUTIONAL: No fever or chills. No weakness. HEAD, EYES, EARS, NOSE AND THROAT: No change in vision. No ear pain or discharge. No sore throat. CARDIOVASCULAR: No chest pain or shortness of breath. RESPIRATORY: No cough, wheezing, or hemoptysis. GASTROINTESTINAL: No nausea, vomiting, diarrhea or constipation. GENITOURINARY: No dysuria, frequency, or change in urination. MUSCULOSKELETAL: (+) Lower back pain. No joint or muscle swelling or pain. No neck pain. SKIN: No rash NEUROLOGIC: No headache, vertigo, loss of consciousness, or change in strength/ sensation. ENDOCRINE: No increased thirst. No abnormal weight change. HEMATOLOGIC/LYMPHATIC: No anemia, easy bleeding, or history of blood clots. ALLERGIC/IMMUNOLOGIC: No hives or skin allergy. <Mignon Pichardo - Last Filed: 11/08/17 03:27> *Physical Exam - Vital Signs Last Vital Signs Temp Pulse Resp BP Pulse Ox 98.2 F 72 18 144/81 98 11/07/17 20:51 11/07/17 20:51 11/07/17 20:51 11/07/17 20:51 11/07/17 20:51 - Physical Exam Comments: 11/08/17 02:18 GENERAL: Awake, alert, and fully oriented, in no acute distress HEAD: No signs of trauma EYES: PERRLA, EOMI, sclera anicteric, conjunctiva clear ENT: Auricles normal inspection, hearing grossly normal, nares patent, oropharynx clear without exudates. Moist mucosa NECK: Normal ROM, supple, no lymphadenopathy, JVD, or masses LUNGS: Breath sounds equal, clear to auscultation bilaterally. No wheezes, and no crackles HEART: Regular rate and rhythm, normal S1 and S2, no murmurs, rubs or gallops ABDOMEN: Soft, nontender, normoactive bowel sounds. No guarding, no rebound. No masses BACK: (+) Midline lower lumbar tenderness to palpation. EXTREMITIES: Normal range of motion, no edema. No clubbing or cyanosis. No cords, erythema, or tenderness NEUROLOGICAL: Cranial nerves II through XII grossly intact. Normal speech, normal gait SKIN: Warm, Dry, normal turgor, no rashes or lesions noted. <Mignon Pichardo - Last Filed: 11/08/17 03:27> - Vital Signs Last Vital Signs Temp Pulse Resp BP Pulse Ox 98.2 F 72 18 144/81 98 11/07/17 20:51 11/07/17 20:51 11/07/17 20:51 11/07/17 20:51 11/07/17 20:51 <Sharonda Patterson - Last Filed: 11/08/17 06:25> Medical Decision Making - Medical Decision Making 11/08/17 03:01 Mr Myles is a 57 yo M who presents to the ER with a complaint of back pain and intoxication He has a history of alcohol abuse Pt has a history of chronic back pain Reports sudden worsening of his back pain this afternoon while on [address] No pain radiating to the legs No weakness No IVDU No direct trauma Requesting detox On examination Pt is pleasant Answers questions appropriately Speech not slurred Moves all extremities Reports back pain, midline tenderness to palpation No limitation in range of motion of the lower extremities Will do xray Will call [facility] Will discharge to home Pt can go to Detox at 8:30am Pt given librium 25mg po to prevent withdrawal <Sharonda Patterson - Last Filed: 11/08/17 06:25> *DC/Admit/Observation/Transfer - Attestations Scribe Attestion: 11/08/17 03:27 Documentation prepared by Mignon Pichardo, acting as certified medical technician for Sharonda Patterson MD. <Mignon Pichardo - Last Filed: 11/08/17 03:27> - Discharge Dispostion Decision to Admit order: No <Sharonda Patterson - Last Filed: 11/08/17 06:25> Diagnosis at time of Disposition: Alcohol intoxication Qualifiers: Complication of substance-induced condition: with unspecified complication Qualified Code(s): F10.929 - Alcohol use, unspecified with intoxication, unspecified - Discharge Dispostion Disposition: HOME Condition at time of disposition: Stable - Patient Instructions Printed Discharge Instructions: DI for Alcohol Abuse
[2017-11-08] MEDS ORDERED: chlordiazePOXIDE HCL 25 MG CAPSULE PO ONE (02:40)
[2017-11-08 06:29] VITALS: BP 140/79; PULSE 88
== END 2017-11-08 06:39 | disposition home or self-care (01) ==
LOC: JER 20:50
DX: F10.120 Alcohol abuse with intoxication, uncomplicated (principal); M54.5 Low back pain; G89.29 Other chronic pain; Y90.9 Presence of alcohol in blood, level not specified
CPT/HCPCS: 72100-TC-FY; 99281-25

== ENCOUNTER 2017-11-09 19:46 | Inpatient (IN) | payer OTHER ==
[2017-11-09 22:14] VITALS: BMI 21.6
--- NOTE | 2017-11-10 00:25 | HP ---
CIWA Score - CIWA Score Nausea/Vomitin-Mild Nausea/No Vomiting Muscle Tremors: 4-Moderate,w/Arms Extend Anxiety: 3 Agitation: 4-Moderately Restless Paroxysmal Sweats: No Perspiration Orientation: 0-Oriented Tacttile Disturbances: 0-None Auditory Disturbances: 0-None Visual Disturbances: 0-None Headache: 4-Moderately Severe CIWA-Ar Total Score: 16 Admission ROS [facility] - HPI Chief Complaint: Alcohol withdrawal symptoms Allergies/Adverse Reactions: Allergies Allergy/AdvReac Type Severity Reaction Status Date / Time No Known Allergies Allergy Verified 11/07/17 21:00 History of Present Illness: 57 years old male with a long history of alcohol dependence is seeking admission to detox. Patient was in detox at [facility] in June 2017. Denies insignificant period of sobriety/. Reports medical history of anxiety and depression. Denies suicide attempt and suicidal ideation at this time Exam Limitations: No Limitations - Ebola screening Have you traveled outside of the country in the last 21 days: No Have you been sick,other than usual withdrawal symptoms: No Do you have a fever: No - Review of Systems Constitutional: Chills, Malaise, Night Sweats, Changes in sleep EENT: reports: No Symptoms Reported Respiratory: reports: No Symptoms reported Cardiac: reports: No Symptoms Reported GI: reports: Diarrhea (x 2), Nausea, Poor Appetite, Poor Fluid Intake, Vomiting (x3), Abdominal cramping : reports: No Symptoms Reported Musculoskeletal: reports: Back Pain, Muscle Pain Integumentary: reports: Dryness Neuro: reports: Headache, Tingling, Tremors Endocrine: reports: No Symptoms Reported Hematology: reports: No Symptoms Reported Psychiatric: reports: Agitated, Anxious, Depressed Other Systems: Reviewed and Negative Patient History - Patient Medical History Hx Anemia: No Hx Asthma: No Hx Chronic Obstructive Pulmonary Disease (COPD): No Hx Cancer: No Hx Cardiac Disorders: No Hx Congestive Heart Failure: No Hx Hypertension: No Hx Hypercholesterolemia: No Hx Pacemaker: No HX Cerebrovascular Accident: No Hx Seizures: No Hx Dementia: No Hx Diabetes: No Hx Gastrointestinal Disorders: No Hx Liver Disease: No Hx Genitourinary Disorders: No Hx Sexually Transmitted Disorders: No Hx Renal Disease (ESRD): No Hx Thyroid Disease: No Hx Human Immunodeficiency Virus (HIV): No (Negative 2017) Hx Hepatitis C: No Hx Depression: Yes (Not on medication) Hx Suicide Attempt: No (Denies suicidal ideation at this time) Hx Bipolar Disorder: No Hx Schizophrenia: No Other Medical History: Anxiety - Not on medication - Patient Surgical History Past Surgical History: Yes Hx Neurologic Surgery: No Hx Cataract Extraction: No Hx Cardiac Surgery: No Hx Lung Surgery: No Hx Breast Surgery: No Hx Breast Biopsy: No Hx Abdominal Surgery: No Hx Appendectomy: No Hx Cholecystectomy: No Hx Genitourinary Surgery: No Hx Section: No Hx Orthopedic Surgery: Yes (LT KNEE SX) Anesthesia Reaction: No - PPD History Results: 02/25/17 NEG CX - Smoking Cessation Smoking history: Never smoked Have you smoked in the past 12 months: No Aproximately how many cigarettes per day: 10 Cigars Per Day: 0 Hx Chewing Tobacco Use: No Family Disease History - Family Disease History Family Disease History: Other: Brother (alcohol,dsa) Admission Physical Exam [facility] - Vital Signs Vital Signs: Vital Signs - 24 hr 11/09/17 22:12 Temperature 98.8 F Pulse Rate 78 Respiratory 18 Rate Blood Pressure 150/100 - Physical General Appearance: Yes: Moderate Distress, Alcohol on Breath, Irritable, Sweating, Anxious HEENTM: Yes: EOMI, Normal ENT Inspection, Normal Voice, MISSY, Pharynx Normal Respiratory: Yes: Lungs Clear, Normal Breath Sounds, No Respiratory Distress Neck: Yes: Supple Breast: Yes: Breast Exam Deferred Cardiology: Yes: Regular Rhythm, Regular Rate, S1, S2 Abdominal: Yes: Normal Bowel Sounds, Soft Genitourinary: Yes: Within Normal Limits Back: Yes: Normal Inspection Musculoskeletal: Yes: Back pain, Muscle Pain Extremities: Yes: Tremors Neurological: Yes: Alert, Normal Mood/Affect Integumentary: Yes: Warm Lymphatic: Yes: Within Normal Limits - Diagnostic (1) Alcohol dependence with uncomplicated withdrawal Current Visit: Yes Status: Chronic (2) Nicotine dependence Current Visit: No Status: Acute Qualifiers: Nicotine product type: cigarettes Substance use status: in withdrawal Qualified Code(s): F17.213 - Nicotine dependence, cigarettes, with withdrawal (3) Anxiety and depression Current Visit: Yes Status: Chronic (4) Seizure Current Visit: Yes Status: Chronic (5) PPD positive, treated Current Visit: Yes Status: Chronic Cleared for Admission [facility] - Detox or Rehab [facility] Level of Care: Medically Managed Detox Regimen/Protocol: Valium S Breath Alcohol Content Breath Alcohol Content: 0.189 Urine Drug Screen - Results Drug Screen Negative: No Urine Drug Screen Results: BZO-Benzodiazepines
[2017-11-10] MEDS ORDERED: MAG HYDROX/AL HYDROX/SIMETH 30 ML UNIT-DOSE CUP PO PRN (00:30)
[2017-11-10] MEDS ORDERED: diazePAM 5 MG TABLET PO ONE (00:30)
[2017-11-10] MEDS ORDERED: guaiFENesin/D-METHORPHAN HB 10 ML UNIT-DOSE CUPS PO PRN (00:30)
[2017-11-10] MEDS ORDERED: MAGNESIUM HYDROX 2400MG/30ML ORAL SUSPENSION 30 ML CUP PO PRN (00:30)
[2017-11-10] MEDS ORDERED: P-EPHED 60MG/TRIPROLIDI 2.5MG TABLET PO PRN (00:30)
[2017-11-10] MEDS ORDERED: LOPERAMIDE HCL 2 MG CAPSULE PO PRN (00:30)
[2017-11-10] MEDS ORDERED: IBUPROFEN 400 MG TABLET (FP) PO PRN (00:30)
[2017-11-10] MEDS ORDERED: MENTHOL/PHENOL 1 EACH UD MM PRN (00:30)
[2017-11-10] MEDS ORDERED: MAGNESIUM CITRATE 300 ML BOTTLE PO PRN (00:30)
[2017-11-10] MEDS ORDERED: ACETAMINOPHEN 325 MG TABLET (FP) PO PRN (00:30)
[2017-11-10] MEDS: diazePAM 5 MG TABLET PO SCH ×3 (05:45→22:24)
[2017-11-10 10:02] LABS: HEMATOCRIT 34.1 % (35.4-49); HEMOGLOBIN 11.4 GM/dL (11.7-16.9); MCHC 33.3 g/dl (32.0-35.9); MEAN PLT VOLUME 8.7 fl (7.5-11.1); PLATELET COUNT 158 K/MM3 (134-434); RBC 3.79 M/mm3 (4.00-5.60); RDW 13.7 % (11.9-15.9)
[2017-11-10 10:14] LABS: BLOOD UREA NITROGEN 6 mg/dL (7-18)
[2017-11-10 10:42] LABS: WHITE BLOOD COUNT 1.8 K/mm3 (4.0-10.0)
[2017-11-10 10:50] LABS: ALBUMIN 3.4 g/dl (3.4-5.0); ALK PHOS 88 U/L (45-117); ANION GAP 11 (8-16); BILIRUBIN,TOTAL 0.5 mg/dL (0.2-1.0); CALCIUM 8.6 mg/dL (8.5-10.1); CHLORIDE 105 mmol/L (98-107); CO2 24 mmol/L (21-32); CREATININE 0.6 mg/dL (0.7-1.3); GLUCOSE,RANDOM 85 mg/dL (74-106); POTASSIUM 3.9 mmol/L (3.5-5.1); SGOT/AST 54 U/L (15-37); SGPT/ALT 34 U/L (12-78); SODIUM 140 mmol/L (136-145); TOT PROT 6.9 g/dl (6.4-8.2)
[2017-11-10] MEDS: diazePAM 5 MG TABLET PO PRN (10:50)
[2017-11-10] MEDS: PRENATAL VITAMINS W/ FOLIC ACID TABLET (FP) PO SCH (10:50)
[2017-11-10] MEDS: NICOTINE 14 MG/24 HOURS TOPICAL PATCH TD SCH (10:52)
--- NOTE | 2017-11-10 13:34 | EKG ---
Test Reason : Blood Pressure : / mmHG Vent. Rate : 066 BPM Atrial Rate : 066 BPM P-R Int : 168 ms QRS Dur : 100 ms QT Int : 484 ms P-R-T Axes : 063 076 071 degrees QTc Int : 507 ms NORMAL SINUS RHYTHM PROLONGED QT ABNORMAL ECG WHEN COMPARED WITH ECG OF 03-JUL-2017 00:46, NONSPECIFIC T WAVE ABNORMALITY NO LONGER EVIDENT IN LATERAL LEADS QT HAS LENGTHENED Confirmed by GEORGES ALSTON, KRYSTIAN ([id number]) on 11/10/2017 1:34:26 PM Referred By: Confirmed By:KRYSTIAN SU MD
--- NOTE | 2017-11-10 14:50 | PN ---
[facility] CIWA - CIWA Score Nausea/Vomitin-No Nausea/No Vomiting Muscle Tremors: None Anxiety: 4-Mod. Anxious/Guarded Agitation: 1-Slight > Activity Paroxysmal Sweats: 3 Orientation: 0-Oriented Tacttile Disturbances: 3-Moderate Itch/Numb/Burn Auditory Disturbances: 1-Very Mild Visual Disturbances: 3-Moderate Sensitivity Headache: 0-None Present CIWA-Ar Total Score: 15 S Progress Note (SOAP) Subjective: Sweating, Diarrhea, Stomach Cramping, Interrupted Sleep, Fatigue, Body Aches. Objective: PATIENT A & O X 3, OBSERVED AMBULATING ON UNIT. NO ACUTE DISTRESS. PATIENT DENIES CHEST PAIN. PATIENT DENIES ANY KNOWN HISTORY OF CARDIAC DISORDER OR OF PREVIOUS ECG ABNORMALITY. 11/10/17 14:46 Vital Signs Temperature 97.4 F L 11/10/17 14:03 Pulse Rate 93 H 11/10/17 14:03 Respiratory Rate 20 11/10/17 14:03 Blood Pressure 135/92 11/10/17 14:03 O2 Sat by Pulse Oximetry (%) Laboratory Tests 11/10/17 11/10/17 07:00 07:00 WBC 1.8 L* D RBC 3.79 L Hgb 11.4 L Hct 34.1 L MCV 90.0 MCH 30.0 MCHC 33.3 RDW 13.7 Plt Count 158 D MPV 8.7 Sodium 140 Potassium 3.9 Chloride 105 Carbon Dioxide 24 Anion Gap 11 BUN 6 L Creatinine 0.6 L Creat Clearance w eGFR > 60 Random Glucose 85 Calcium 8.6 Total Bilirubin 0.5 D AST 54 H D ALT 34 D Alkaline Phosphatase 88 D Total Protein 6.9 Albumin 3.4 LABS NOTED. RPR, UA RESULTS PENDING. PATIENT DENIES ANY KNOWN HISTORY OF LOW WBC LEVEL. PATIENT HAS HAD LOW WBC LEVEL ON SEVERAL PREVIOUS ADMISSIONS. 11/10/17 14:48 Assessment: 11/10/17 14:48 WITHDRAWAL SYMPTOMS. LEUKOPENIA. 11/10/17 14:50 Plan: CONTINUE DETOX. INCREASE DAILY PO FLUID INTAKE. REPEAT CBC ON 11/12/2017 FOR ADMISSION ABNORMALITIES, INCLUDING LOW WBC LEVEL.
--- NOTE | 2017-11-10 15:42 | CONSULT ---
[facility] Psychiatric Consult - Data Date of interview: 11/10/17 Admission source: [facility] Identifying data: Patient is a 57 year old male, father of one, unemployed, receives SSI and currently living with sister. This is one of multiple admissions for patient. Pt. admitted to for alcohol dependence. Substance Abuse History: Alcohol- First used: 7 years old Current use: Pint and half daily. Cigerttes- 1/2 pack per day Medical History: Left knee surgery Psychiatric History: Patient reports two psychiatric hospitalizations while incacerated. Patient reports last receiving OPD in the 's from the clinic "[facility] States he was prescribed zyprea 5mg + Doxepin 25mg qhs. Pt. currently reports nonadherence to medications and OPD. States he receives his medications from various clinics. Pt. denies h/o suicide attempt. Pt. requesting to restart medication. Physical/Sexual Abuse/Trauma History: Denies. Mental Status Exam - Mental Status Exam Alert and Oriented to: Time, Place, Person Cognitive Function: Good Patient Appearance: Unkempt Mood: Hopeful Affect: Mood Congruent Patient Behavior: Cooperative Speech Pattern: Appropriate Voice Loudness: Normal Thought Process: Intact, Goal Oriented Thought Disorder: Not Present Hallucinations: Denies Suicidal Ideation: Denies Homicidal Ideation: Denies Insight/Judgement: Poor Sleep: Poorly Appetite: Fair Muscle strength/Tone: Normal Gait/Station: Normal Psychiatric Findings - Problem List ([place] 1, 2,3) (1) Alcohol dependence with uncomplicated withdrawal Current Visit: Yes Status: Acute (2) Nicotine dependence Current Visit: Yes Status: Acute Qualifiers: Nicotine product type: cigarettes Substance use status: in withdrawal Qualified Code(s): F17.213 - Nicotine dependence, cigarettes, with withdrawal (3) Substance induced mood disorder Current Visit: Yes Status: Acute - Initial Treatment Plan Initial Treatment Plan: Psychoeducation provided. Detoxification in progress. doxepin 25mg qhs. EKG is abnormal. Will wait for result of repeat EKG. Benefits and side effects discussed. Verbal consent given. Will continue to monitor patient.
[2017-11-10 16:58] LABS: URINE APPEARANCE CLEAR; URINE BILIRUBIN NEGATIVE (<2.0 mg/dL); URINE BLOOD NEGATIVE (NEGATIVE); URINE COLOR YELLOW; URINE GLUCOSE (UA) NEGATIVE (NEGATIVE); URINE KETONE NEGATIVE (NEGATIVE); URINE LEUK ESTERASE NEGATIVE (NEGATIVE); URINE NITRITE NEGATIVE (NEGATIVE); URINE PROTEIN NEGATIVE (NEGATIVE); URINE UROBILINOGEN NEGATIVE mg/dL (0.2-1.0)
[2017-11-10] MEDS ORDERED: OLANZapine 5 MG TABLET PO SCH (22:00)
[2017-11-10] MEDS: THIAMINE HCL 100 MG TABLET (FP) PO SCH (22:24)
[2017-11-10] MEDS: DOXEPIN HCL 25 MG CAPSULE PO SCH (22:25)
[2017-11-11] MEDS: diazePAM 5 MG TABLET PO SCH ×3 (06:39→22:25)
[2017-11-11] MEDS: PRENATAL VITAMINS W/ FOLIC ACID TABLET (FP) PO SCH (09:28)
[2017-11-11] MEDS: diazePAM 5 MG TABLET PO PRN (09:29)
[2017-11-11] MEDS: NICOTINE 14 MG/24 HOURS TOPICAL PATCH TD SCH (09:30)
[2017-11-11] MEDS ORDERED: NAPROXEN 375 MG TABLET (FP) PO ONE (11:15)
[2017-11-11] MEDS: METHYL SALICYLATE/MENTHOL OINT 30 GM TUBE TP SCH ×2 (12:03→22:24)
--- NOTE | 2017-11-11 13:44 | PN ---
[facility] CIWA - CIWA Score Nausea/Vomitin-No Nausea/No Vomiting Muscle Tremors: None Anxiety: 4-Mod. Anxious/Guarded Agitation: 4-Moderately Restless Paroxysmal Sweats: 2 Orientation: 0-Oriented Tacttile Disturbances: 2-Mild Itch/Numbness/Burn Auditory Disturbances: 0-None Visual Disturbances: 2-Mild Sensitivity Headache: 0-None Present CIWA-Ar Total Score: 14 [facility] Progress Note (SOAP) Subjective: Diarrhea, Body Aches, Anxious, Interrupted Sleep. Objective: PATIENT A & O X 3, OBSERVED AMBULATING ON UNIT. NO ACUTE DISTRESS. PATIENT DENIES CHEST PAIN. 11/11/17 13:43 Vital Signs Temperature 96.6 F L 11/11/17 09:12 Pulse Rate 56 L 11/11/17 09:12 Respiratory Rate 18 11/11/17 09:12 Blood Pressure 157/76 11/11/17 09:12 O2 Sat by Pulse Oximetry (%) Laboratory Tests 11/10/17 11/10/17 11/10/17 07:00 07:00 07:00 WBC 1.8 L* D RBC 3.79 L Hgb 11.4 L Hct 34.1 L MCV 90.0 MCH 30.0 MCHC 33.3 RDW 13.7 Plt Count 158 D MPV 8.7 Sodium 140 Potassium 3.9 Chloride 105 Carbon Dioxide 24 Anion Gap 11 BUN 6 L Creatinine 0.6 L Creat Clearance w eGFR > 60 Random Glucose 85 Calcium 8.6 Total Bilirubin 0.5 D AST 54 H D ALT 34 D Alkaline Phosphatase 88 D Total Protein 6.9 Albumin 3.4 Urine Color Urine Appearance Urine pH Ur Specific [place] Urine Protein Urine Glucose (UA) Urine Ketones Urine Blood Urine Nitrite Urine Bilirubin Urine Urobilinogen Ur Leukocyte Esterase RPR Titer Nonreactive 11/10/17 13:30 WBC RBC Hgb Hct MCV MCH MCHC RDW Plt Count MPV Sodium Potassium Chloride Carbon Dioxide Anion Gap BUN Creatinine Creat Clearance w eGFR Random Glucose Calcium Total Bilirubin AST ALT Alkaline Phosphatase Total Protein Albumin Urine Color Yellow Urine Appearance Clear Urine pH 7.0 D Ur Specific [place] 1.011 Urine Protein Negative Urine Glucose (UA) Negative Urine Ketones Negative Urine Blood Negative Urine Nitrite Negative Urine Bilirubin Negative Urine Urobilinogen Negative Ur Leukocyte Esterase Negative RPR Titer LABS NOTED. Assessment: WITHDRAWAL SYMPTOMS. 11/11/17 13:43 Plan: CONTINUE DETOX. CONTINUE TO MONITOR BP.
[2017-11-11] MEDS: THIAMINE HCL 100 MG TABLET (FP) PO SCH (22:24)
[2017-11-11] MEDS: DOXEPIN HCL 25 MG CAPSULE PO SCH (22:24)
[2017-11-11] MEDS: MELATONIN 5 MG TABLETS PO PRN (22:25)
[2017-11-11] MEDS: NAPROXEN 375 MG TABLET (FP) PO SCH (22:25)
[2017-11-12 10:21] LABS: EOS % 4.4 % (0-4.5); HEMATOCRIT 34.5 % (35.4-49); HEMOGLOBIN 11.4 GM/dL (11.7-16.9); MCH 29.9 pg (25.7-33.7); MEAN CELL VOLUME 90.5 fl (80-96); MEAN PLT VOLUME 9.1 fl (7.5-11.1); MONO % 16.2 % (3.8-10.2); NEUT % 39.4 % (42.8-82.8); PLATELET COUNT 144 K/MM3 (134-434); RBC 3.82 M/mm3 (4.00-5.60); RDW 13.6 % (11.9-15.9)
[2017-11-12] MEDS: PRENATAL VITAMINS W/ FOLIC ACID TABLET (FP) PO SCH (10:22)
[2017-11-12] MEDS: diazePAM 5 MG TABLET PO SCH ×2 (10:22→22:26)
[2017-11-12] MEDS: NICOTINE 14 MG/24 HOURS TOPICAL PATCH TD SCH (10:23)
[2017-11-12] MEDS: NAPROXEN 375 MG TABLET (FP) PO SCH ×2 (10:23→22:27)
[2017-11-12] MEDS: METHYL SALICYLATE/MENTHOL OINT 30 GM TUBE TP SCH ×2 (10:23→22:27)
--- NOTE | 2017-11-12 15:13 | PN ---
[facility] Progress Note (SOAP) Subjective: Fatigue, Anxious, Body Aches. Objective: PATIENT A & O X 3, OBSERVED AMBULATING ON UNIT. NO ACUTE DISTRESS. 11/12/17 15:11 Vital Signs Temperature 97.4 F L 11/12/17 14:02 Pulse Rate 58 L 11/12/17 14:02 Respiratory Rate 18 11/12/17 14:02 Blood Pressure 108/56 11/12/17 14:02 O2 Sat by Pulse Oximetry (%) Laboratory Tests 11/10/17 11/10/17 11/10/17 07:00 07:00 07:00 WBC 1.8 L* D RBC 3.79 L Hgb 11.4 L Hct 34.1 L MCV 90.0 MCH 30.0 MCHC 33.3 RDW 13.7 Plt Count 158 D MPV 8.7 Neutrophils % Lymphocytes % Monocytes % Eosinophils % Basophils % Nucleated RBC % Sodium 140 Potassium 3.9 Chloride 105 Carbon Dioxide 24 Anion Gap 11 BUN 6 L Creatinine 0.6 L Creat Clearance w eGFR > 60 Random Glucose 85 Calcium 8.6 Total Bilirubin 0.5 D AST 54 H D ALT 34 D Alkaline Phosphatase 88 D Total Protein 6.9 Albumin 3.4 Urine Color Urine Appearance Urine pH Ur Specific [place] Urine Protein Urine Glucose (UA) Urine Ketones Urine Blood Urine Nitrite Urine Bilirubin Urine Urobilinogen Ur Leukocyte Esterase RPR Titer Nonreactive 11/10/17 11/12/17 13:30 07:30 WBC 3.0 L D RBC 3.82 L Hgb 11.4 L Hct 34.5 L MCV 90.5 MCH 29.9 MCHC 33.0 RDW 13.6 Plt Count 144 MPV 9.1 Neutrophils % 39.4 L D Lymphocytes % 39.0 Monocytes % 16.2 H Eosinophils % 4.4 Basophils % 1.0 Nucleated RBC % 0 Sodium Potassium Chloride Carbon Dioxide Anion Gap BUN Creatinine Creat Clearance w eGFR Random Glucose Calcium Total Bilirubin AST ALT Alkaline Phosphatase Total Protein Albumin Urine Color Yellow Urine Appearance Clear Urine pH 7.0 D Ur Specific [place] 1.011 Urine Protein Negative Urine Glucose (UA) Negative Urine Ketones Negative Urine Blood Negative Urine Nitrite Negative Urine Bilirubin Negative Urine Urobilinogen Negative Ur Leukocyte Esterase Negative RPR Titer LABS NOTED. RESULTS OF REPEAT CBC NOTED. 11/12/17 15:12 Assessment: 11/12/17 15:11 WITHDRAWAL SYMPTOMS. Plan: CONTINUE DETOX.
[2017-11-12] MEDS: DOXEPIN HCL 25 MG CAPSULE PO SCH (22:26)
[2017-11-12] MEDS: THIAMINE HCL 100 MG TABLET (FP) PO SCH (22:26)
[2017-11-12] MEDS: MELATONIN 5 MG TABLETS PO PRN (22:27)
[2017-11-13] MEDS: PRENATAL VITAMINS W/ FOLIC ACID TABLET (FP) PO SCH (09:20)
[2017-11-13] MEDS: METHYL SALICYLATE/MENTHOL OINT 30 GM TUBE TP SCH ×2 (09:20→22:23)
[2017-11-13] MEDS: NICOTINE 14 MG/24 HOURS TOPICAL PATCH TD SCH (09:20)
[2017-11-13] MEDS: diazePAM 5 MG TABLET PO SCH ×2 (09:20→22:22)
[2017-11-13] MEDS: NAPROXEN 375 MG TABLET (FP) PO SCH ×2 (09:22→22:22)
--- NOTE | 2017-11-13 16:36 | PN ---
[facility] Progress Note (SOAP) Subjective: Body Aches, Interrupted Sleep. Objective: PATIENT A & O X 3, OBSERVED AMBULATING ON UNIT. NO ACUTE DISTRESS. 11/13/17 16:34 Vital Signs Temperature 96.5 F L 11/13/17 13:14 Pulse Rate 60 11/13/17 13:14 Respiratory Rate 18 11/13/17 13:14 Blood Pressure 155/77 11/13/17 13:14 O2 Sat by Pulse Oximetry (%) Laboratory Tests 11/10/17 11/10/17 11/10/17 07:00 07:00 07:00 WBC 1.8 L* D RBC 3.79 L Hgb 11.4 L Hct 34.1 L MCV 90.0 MCH 30.0 MCHC 33.3 RDW 13.7 Plt Count 158 D MPV 8.7 Neutrophils % Lymphocytes % Monocytes % Eosinophils % Basophils % Nucleated RBC % Sodium 140 Potassium 3.9 Chloride 105 Carbon Dioxide 24 Anion Gap 11 BUN 6 L Creatinine 0.6 L Creat Clearance w eGFR > 60 Random Glucose 85 Calcium 8.6 Total Bilirubin 0.5 D AST 54 H D ALT 34 D Alkaline Phosphatase 88 D Total Protein 6.9 Albumin 3.4 Urine Color Urine Appearance Urine pH Ur Specific [place] Urine Protein Urine Glucose (UA) Urine Ketones Urine Blood Urine Nitrite Urine Bilirubin Urine Urobilinogen Ur Leukocyte Esterase RPR Titer Nonreactive 11/10/17 11/12/17 13:30 07:30 WBC 3.0 L D RBC 3.82 L Hgb 11.4 L Hct 34.5 L MCV 90.5 MCH 29.9 MCHC 33.0 RDW 13.6 Plt Count 144 MPV 9.1 Neutrophils % 39.4 L D Lymphocytes % 39.0 Monocytes % 16.2 H Eosinophils % 4.4 Basophils % 1.0 Nucleated RBC % 0 Sodium Potassium Chloride Carbon Dioxide Anion Gap BUN Creatinine Creat Clearance w eGFR Random Glucose Calcium Total Bilirubin AST ALT Alkaline Phosphatase Total Protein Albumin Urine Color Yellow Urine Appearance Clear Urine pH 7.0 D Ur Specific [place] 1.011 Urine Protein Negative Urine Glucose (UA) Negative Urine Ketones Negative Urine Blood Negative Urine Nitrite Negative Urine Bilirubin Negative Urine Urobilinogen Negative Ur Leukocyte Esterase Negative RPR Titer LABS NOTED. Assessment: 11/13/17 16:34 WITHDRAWAL SYMPTOMS. Plan: CONTINUE DETOX. PATIENT SCHEDULED FOR D/C TOMORROW.
[2017-11-13] MEDS: THIAMINE HCL 100 MG TABLET (FP) PO SCH (22:21)
[2017-11-13] MEDS: DOXEPIN HCL 25 MG CAPSULE PO SCH (22:22)
[2017-11-13] MEDS: MELATONIN 5 MG TABLETS PO PRN (22:23)
[2017-11-14 06:45] VITALS: BP 126/68; PULSE 60; TEMP 97.4
[2017-11-14] MEDS ORDERED: diazePAM 5 MG TABLET PO SCH (10:00)
--- NOTE | 2017-11-14 13:31 | DS ---
[facility] Detox Discharge Summary Admission Date: 11/09/17 Discharge Date: 11/14/17 - History Present History: Alcohol Dependence Additional Comments: DETOX COMPLETED. ALERT O X 3. NAD. PT REPORTS PRIMARY CARE AT [facility]. Pertinent Past History: PLEASE SEE DX BELOW - Physical Exam Results Vital Signs: Vital Signs Temperature 97.4 F L 11/14/17 06:45 Pulse Rate 60 11/14/17 06:45 Respiratory Rate 18 11/14/17 06:45 Blood Pressure 126/68 11/14/17 06:45 O2 Sat by Pulse Oximetry (%) Pertinent Admission Physical Exam Findings: WITHDRAWAL SX Laboratory Tests 11/10/17 11/10/17 11/10/17 07:00 07:00 07:00 WBC 1.8 L* D RBC 3.79 L Hgb 11.4 L Hct 34.1 L MCV 90.0 MCH 30.0 MCHC 33.3 RDW 13.7 Plt Count 158 D MPV 8.7 Neutrophils % Lymphocytes % Monocytes % Eosinophils % Basophils % Nucleated RBC % Sodium 140 Potassium 3.9 Chloride 105 Carbon Dioxide 24 Anion Gap 11 BUN 6 L Creatinine 0.6 L Creat Clearance w eGFR > 60 Random Glucose 85 Calcium 8.6 Total Bilirubin 0.5 D AST 54 H D ALT 34 D Alkaline Phosphatase 88 D Total Protein 6.9 Albumin 3.4 Urine Color Urine Appearance Urine pH Ur Specific [place] Urine Protein Urine Glucose (UA) Urine Ketones Urine Blood Urine Nitrite Urine Bilirubin Urine Urobilinogen Ur Leukocyte Esterase RPR Titer Nonreactive 11/10/17 11/12/17 13:30 07:30 WBC 3.0 L D RBC 3.82 L Hgb 11.4 L Hct 34.5 L MCV 90.5 MCH 29.9 MCHC 33.0 RDW 13.6 Plt Count 144 MPV 9.1 Neutrophils % 39.4 L D Lymphocytes % 39.0 Monocytes % 16.2 H Eosinophils % 4.4 Basophils % 1.0 Nucleated RBC % 0 Sodium Potassium Chloride Carbon Dioxide Anion Gap BUN Creatinine Creat Clearance w eGFR Random Glucose Calcium Total Bilirubin AST ALT Alkaline Phosphatase Total Protein Albumin Urine Color Yellow Urine Appearance Clear Urine pH 7.0 D Ur Specific [place] 1.011 Urine Protein Negative Urine Glucose (UA) Negative Urine Ketones Negative Urine Blood Negative Urine Nitrite Negative Urine Bilirubin Negative Urine Urobilinogen Negative Ur Leukocyte Esterase Negative RPR Titer - Treatment Hospital Course: Detox Protocol Followed, Detoxed Safely, Responded well, Discharged Condition Good - Medication Discharge Medications: Ambulatory Orders Olanzapine [Zyprexa -] 20 mg PO HS #30 tablet 12/01/16 - Diagnosis (1) Alcohol dependence with uncomplicated withdrawal Status: Acute (2) Nicotine dependence Status: Acute Qualifiers: Nicotine product type: cigarettes Substance use status: in withdrawal Qualified Code(s): F17.213 - Nicotine dependence, cigarettes, with withdrawal (3) Seizure Status: Chronic (4) Weight decreased Status: Chronic - AMA Did Patient Leave Against Medical Advice: No
== END 2017-11-14 08:50 | disposition home or self-care (01) | DRG 775 ==
LOC: YASAS 19:46 → Y3N 23:35
PROVIDERS: ADMIT Internal Medicine; ATTEND Internal Medicine
PROC: HZ2ZZZZ Detoxification Services for Substance Abuse Treatment (ICD-10-PCS; principal; 2017-11-09)
DX: F10.230 Alcohol dependence with withdrawal, uncomplicated (principal); F17.213 Nicotine dependence, cigarettes, with withdrawal; F41.8 Other specified anxiety disorders; F19.24 Other psychoactive substance dependence with psychoactive substance-induced mood disorder; D72.819 Decreased white blood cell count, unspecified; R76.11 Nonspecific reaction to tuberculin skin test without active tuberculosis; R63.4 Abnormal weight loss; Z68.21 Body mass index [BMI] 21.0-21.9, adult
CPT/HCPCS: 36415; 80053; 81003; 85025; 85027; 86593; 93005; 93010

== ENCOUNTER 2017-11-26 17:52 | Emergency (ER) | payer OTHER ==
[2017-11-26 17:58] VITALS: BP 117/76; PULSE 104; TEMP 97; BMI 25.8
--- NOTE | 2017-11-26 19:58 | PDOC ---
History of Present Illness - General History Source: Patient Exam Limitations: No Limitations - History of Present Illness Initial Comments: 11/26/17 21:15 The patient is a 57 year old male, poor historian with past medical history of alcohol dependence, anxiety, schizophrenia and depression presents to the emergency department with alcohol intoxication. Patient reports drinking 3 large cans of beer today. Patient denied any recent falls or trauma. Patient endorses chronic L knee pain. <Denice Anne - Last Filed: 11/26/17 21:15> - General History Source: Patient Exam Limitations: No Limitations <Sharonda Patterson - Last Filed: 11/26/17 21:56> - General Chief Complaint: Alcohol intoxication Stated Complaint: SWOLLEN LEFT KNEE,INTOX Time Seen by Provider: 11/26/17 19:32 Past History <Denice Anne - Last Filed: 11/26/17 21:15> - Past Medical History Anemia: No Asthma: No Cancer: No Cardiac Disorders: No CVA: No COPD: No CHF: No Dementia: No Diabetes: No GI Disorders: No Disorders: No HTN: No Hypercholesterolemia: No Kidney Stones: No Liver Disease: No Psychiatric Problems: Yes (schizo, etoh abuse) Seizures: No Thyroid Disease: No - Surgical History Abdominal Surgery: No Appendectomy: No Cardiac Surgery: No Cholecystectomy: No Lung Surgery: No Neurologic Surgery: No Orthopedic Surgery: Yes (LT KNEE SX) - Reproductive History Testicular Surgery: No - Immunization History Immunization Up to Date: Yes - Suicide/Smoking/Psychosocial Hx Smoking Status: Yes Smoking History: Never smoked Have you smoked in the past 12 months: No Number of Cigarettes Smoked Daily: 10 Cigars Per Day: 0 Information on smoking cessation initiated: No 'Breaking Loose' booklet given: 07/02/17 Hx Alcohol Use: No Drug/Substance Use Hx: No Substance Use Type: Alcohol Hx Substance Use Treatment: Yes ([facility]) <Sharonda Patterson - Last Filed: 11/26/17 21:56> - Past Medical History Allergies/Adverse Reactions: Allergies Allergy/AdvReac Type Severity Reaction Status Date / Time No Known Allergies Allergy Verified 11/26/17 18:37 Home Medications: Ambulatory Orders Olanzapine [Zyprexa -] 20 mg PO HS #30 tablet 12/01/16 Review of Systems - Review of Systems Able to Perform ROS?: Yes Comments:: 11/26/17 21:15 GENERAL/CONSTITUTIONAL: No: fever, chills, weakness, loss of appetite. HEAD, EYES, EARS, NOSE AND THROAT: No: change in vision, ear pain, discharge, sore throat, throat swelling. CARDIOVASCULAR: No: chest pain, lightheadedness, palpitations, syncope RESPIRATORY: No: cough, shortness of breath, wheezing, hemoptysis, stridor. GASTROINTESTINAL: No: nausea, vomiting, abdominal cramping, diarrhea, rectal bleeding, constipation. GENITOURINARY: No: dysuria, hematuria, frequency, urgency, flank pain. MUSCULOSKELETAL: +L knee pain. No: back pain, neck pain, joint pain, muscle swelling or pain SKIN: No: lesions, pallor, rash or easy bruising. NEUROLOGIC: No: headache, vertigo, paresthesias, weakness ENDOCRINE: No: unexplained weight gain or loss HEMATOLOGIC/LYMPHATIC: No: anemia, easy bleeding, swelling nodes <Denice Anne - Last Filed: 11/26/17 21:15> *Physical Exam - Vital Signs Last Vital Signs Temp Pulse Resp BP Pulse Ox 97 F L 104 H 18 117/76 100 11/26/17 17:54 11/26/17 17:54 11/26/17 17:54 11/26/17 17:54 11/26/17 17:54 - Physical Exam Comments: 11/26/17 21:15 GENERAL: The patient is in no acute distress. +Malodorous. Awake, alert, somnolent. +Intoxicated HEAD: Normal with no signs of trauma. EYES: PERRLA, EOMI, sclera anicteric, conjunctiva clear. ENT: Ears normal, nares patent, oropharynx clear without exudates. Moist mucous membranes. NECK: Normal range of motion, supple without lymphadenopathy, JVD, or masses. LUNGS: Breath sounds equal, clear to auscultation bilaterally. No wheezes, and no crackles. HEART:Regular rate and rhythm, normal S1 and S2 without murmur, rub or gallop. ABDOMEN: Soft, nontender, normoactive bowel sounds. No guarding, no rebound. EXTREMITIES: Normal range of motion, no edema. No clubbing or cyanosis. No erythema, or tenderness. NEUROLOGICAL: Cranial nerves II through XII grossly intact. Normal speech. No focal neurological deficits. MUSCULOSKELETAL: Back nontender to palpation, no CVA tenderness SKIN: Warm, Dry, normal turgor, no rashes or lesions noted. <Denice Anne - Last Filed: 11/26/17 21:15> - Vital Signs Last Vital Signs Temp Pulse Resp BP Pulse Ox 97 F L 104 H 18 117/76 100 11/26/17 17:54 11/26/17 17:54 11/26/17 17:54 11/26/17 17:54 11/26/17 17:54 <Sharonda Patterson - Last Filed: 11/26/17 21:56> Medical Decision Making - Medical Decision Making 11/26/17 21:47 Mr Myles is a 57 yo M who presents to the ER via EMS He has a history of alcohol abuse, drank several beers today Pt has a history of chronic back pain No weakness No IVDU No trauma today On examination Pt is pleasant, malodorous Answers questions appropriately Speech not slurred Moves all extremities No limitation in range of motion of the lower extremities Discharge when clinically stable and ambulatory Clinical impression: Alcohol intoxication, initial presentation <Sharonda Patterson - Last Filed: 11/26/17 21:56> *DC/Admit/Observation/Transfer - Attestations Scribe Attestion: 11/26/17 21:15 Documentation prepared by Denice Anne, acting as medical malpractice paralegal for Sharonda Patterson MD <Denice Anne - Last Filed: 11/26/17 21:15> - Discharge Dispostion Decision to Admit order: No <Sharonda Patterson - Last Filed: 11/26/17 21:56> Diagnosis at time of Disposition: Alcohol abuse - Discharge Dispostion Disposition: HOME Condition at time of disposition: Stable - Patient Instructions Printed Discharge Instructions: DI for Alcohol Abuse
[2017-11-26] MEDS ORDERED: BACITRACIN 0.9 GM PACKET ONE (22:59)
== END 2017-11-26 23:02 | disposition home or self-care (01) ==
LOC: JER 17:52
DX: F10.120 Alcohol abuse with intoxication, uncomplicated (principal); M25.562 Pain in left knee; G89.29 Other chronic pain; F41.8 Other specified anxiety disorders; F20.9 Schizophrenia, unspecified
CPT/HCPCS: 99282-25

== ENCOUNTER 2017-12-06 20:37 | Inpatient (IN) | payer OTHER ==
[2017-12-06 21:19] VITALS: BMI 21.6
[2017-12-06] MEDS ORDERED: MENTHOL/PHENOL 1 EACH UD MM PRN (21:25)
[2017-12-06] MEDS ORDERED: chlordiazePOXIDE HCL 25 MG CAPSULE PO ONE (21:25)
[2017-12-06] MEDS ORDERED: guaiFENesin/D-METHORPHAN HB 10 ML UNIT-DOSE CUPS PO PRN (21:25)
[2017-12-06] MEDS ORDERED: P-EPHED 60MG/TRIPROLIDI 2.5MG TABLET PO PRN (21:25)
[2017-12-06] MEDS ORDERED: LOPERAMIDE HCL 2 MG CAPSULE PO PRN (21:25)
[2017-12-06] MEDS ORDERED: chlordiazePOXIDE HCL 25 MG CAPSULE PO PRN (21:25)
[2017-12-06] MEDS ORDERED: hydrOXYzine PAMOATE 50 MG CAPSULE (FP) PO PRN (21:25)
[2017-12-06] MEDS ORDERED: MAGNESIUM CITRATE 300 ML BOTTLE PO PRN (21:25)
[2017-12-06] MEDS ORDERED: MAGNESIUM HYDROX 2400MG/30ML ORAL SUSPENSION 30 ML CUP PO PRN (21:25)
[2017-12-06] MEDS ORDERED: MAG HYDROX/AL HYDROX/SIMETH 30 ML UNIT-DOSE CUP PO PRN (21:25)
--- NOTE | 2017-12-06 21:32 | HP ---
CIWA Score - CIWA Score Nausea/Vomitin Muscle Tremors: 2 Anxiety: 3 Agitation: 2 Paroxysmal Sweats: 1-Minimal Palms Moist Orientation: 0-Oriented Tacttile Disturbances: 2-Mild Itch/Numbness/Burn (both hands) Auditory Disturbances: 0-None Visual Disturbances: 0-None Headache: 0-None Present CIWA-Ar Total Score: 12 Admission ROS BHS - HPI Chief Complaint: " I need help, I've been drinking too much my brother, sister, mother and father recently, I feel depressed." Allergies/Adverse Reactions: Allergies Allergy/AdvReac Type Severity Reaction Status Date / Time No Known Allergies Allergy Verified 12/06/17 20:51 History of Present Illness: 57 yo male with chronic alcohol dependence is here seeking detox, this is one of multiple admissions. Patient last detox at [facility] 11/09/17 -11/14/17. Patient reports was recently at [facility] on 11/14/17 for alcohol intoxication and for s/p fall evaluation. PMHX:Pre-diabetes, depression, anxiety and schizophrenia. Denies suicidal / homicidal ideation, denies visual or auditory hallucinations. Reports increase depression due to recently deaths of family members. Denies hx of seizures or blackouts. Reports no significant period of sobriety. Exam Limitations: No Limitations - Ebola screening Have you traveled outside of the country in the last 21 days: No (N) Have you had contact with anyone from an Ebola affected area: No Have you been sick,other than usual withdrawal symptoms: No Do you have a fever: No - Review of Systems Constitutional: Chills, Loss of Appetite, Changes in sleep, Unintentional Wgt. Loss EENT: reports: No Symptoms Reported Respiratory: reports: No Symptoms reported Cardiac: reports: No Symptoms Reported GI: reports: Diarrhea, Nausea, Poor Appetite, Poor Fluid Intake, Other (bloating ) : reports: No Symptoms Reported Musculoskeletal: reports: Back Pain, Joint Pain (both knee pain) Integumentary: reports: Pruritus (itch both arms) Neuro: reports: No Symptoms reported Endocrine: reports: Increased Thirst Hematology: reports: No Symptoms Reported Psychiatric: reports: Orientated x3, Depressed Other Systems: Reviewed and Negative Patient History - Patient Medical History Hx Anemia: No Hx Asthma: No Hx Chronic Obstructive Pulmonary Disease (COPD): No Hx Cancer: No Hx Cardiac Disorders: No Hx Congestive Heart Failure: No Hx Hypertension: No Hx Hypercholesterolemia: No Hx Pacemaker: No HX Cerebrovascular Accident: No Hx Seizures: No Hx Dementia: No Hx Diabetes: Yes Hx Gastrointestinal Disorders: No Hx Liver Disease: No Hx Genitourinary Disorders: No Hx Sexually Transmitted Disorders: No Hx Renal Disease (ESRD): No Hx Thyroid Disease: No Hx Human Immunodeficiency Virus (HIV): No (Negative 2018) Hx Hepatitis C: No Hx Depression: Yes (Not on medication) Hx Suicide Attempt: No (Denies suicidal ideation at this time) Hx Bipolar Disorder: No Hx Schizophrenia: Yes - Patient Surgical History Past Surgical History: Yes Hx Neurologic Surgery: No Hx Cataract Extraction: No Hx Cardiac Surgery: No Hx Lung Surgery: No Hx Breast Surgery: No Hx Breast Biopsy: No Hx Abdominal Surgery: No Hx Appendectomy: No Hx Cholecystectomy: No Hx Genitourinary Surgery: No Hx Section: No Hx Orthopedic Surgery: Yes (LT KNEE SX) Anesthesia Reaction: No - PPD History Results: 02/25/17 NEG CX PPD to be Administered?: No - Smoking Cessation Smoking history: Current every day smoker Have you smoked in the past 12 months: No Cigars Per Day: 10 Hx Chewing Tobacco Use: No Initiated information on smoking cessation: Yes 'Breaking Loose' booklet given: 12/06/17 - Substance & Tx. History Hx Alcohol Use: Yes Hx Substance Use: Yes Substance Use Type: Alcohol Hx Substance Use Treatment: Yes ([facility] 11/09/17 -11/14/17) - Substances Abused Alcohol Route: Oral Frequency: Daily Amount used: 17 BEERS Age of first use: 19 Date of Last Use: 12/06/17 Family Disease History - Family Disease History Family Disease History: Other: Brother (alcohol,dsa) Admission Physical Exam S - Vital Signs Vital Signs: Vital Signs - 24 hr 12/06/17 21:08 Temperature 98.0 F Pulse Rate 66 Respiratory 18 Rate Blood Pressure 106/70 - Physical General Appearance: Yes: Disheveled, Mild Distress, Thin, Tremorous, Anxious HEENTM: Yes: EOMI, Hearing grossly Normal, Normal ENT Inspection, Normocephalic , Normal Voice, MISSY, Pharynx Normal, Tm's normal Respiratory: Yes: Chest Non-Tender, Lungs Clear, Normal Breath Sounds, No Respiratory Distress, No Accessory Muscle Use Neck: Yes: Within Normal Limits Breast: Yes: Breast Exam Deferred Cardiology: Yes: Regular Rhythm, Regular Rate Abdominal: Yes: Normal Bowel Sounds, Non Tender, Flat, Soft Genitourinary: Yes: Within Normal Limits Back: Yes: Normal Inspection Musculoskeletal: Yes: full range of Motion, Gait Steady, Pelvis Stable, Back pain, Other (bilateral knee sweeling no effusion) Extremities: Yes: Normal Capillary Refill, Normal Inspection, Normal Range of Motion, Non-Tender Neurological: Yes: microphone boom operator II-XII NML intact, Fully Oriented, Alert, Motor Strength 5/5 Integumentary: Yes: Normal Color, Warm, Diaphoresis Lymphatic: Yes: Within Normal Limits - Diagnostic (1) Bereavement Current Visit: Yes Status: Acute (2) Psychiatric disorder Current Visit: Yes Status: Suspected (3) Alcohol dependence with uncomplicated withdrawal Current Visit: Yes Status: Acute (4) Insomnia Current Visit: Yes Status: Acute Qualifiers: Insomnia type: unspecified Qualified Code(s): G47.00 - Insomnia, unspecified (5) Knee pain Current Visit: Yes Status: Chronic Qualifiers: Chronicity: chronic Laterality: bilateral Qualified Code(s): M25.561 - Pain in right knee; M25.562 - Pain in left knee; G89.29 - Other chronic pain (6) PPD positive, treated Current Visit: Yes Status: Chronic Comment: reports treated in the past (7) Weight decreased Current Visit: Yes Status: Acute (8) Nicotine dependence Current Visit: Yes Status: Acute Qualifiers: Nicotine product type: cigarettes Substance use status: in withdrawal Qualified Code(s): F17.213 - Nicotine dependence, cigarettes, with withdrawal Cleared for Admission [facility] - Detox or Rehab [facility] Level of Care: Medically Managed Detox Regimen/Protocol: Librium [facility] Breath Alcohol Content Breath Alcohol Content: 0.124 Urine Drug Screen - Results Drug Screen Negative: Yes
[2017-12-07] MEDS: MELATONIN 5 MG TABLETS PO PRN ×2 (00:12→22:33)
[2017-12-07] MEDS: THIAMINE HCL 100 MG TABLET (FP) PO SCH ×2 (00:40→22:30)
[2017-12-07] MEDS: chlordiazePOXIDE HCL 25 MG CAPSULE PO SCH ×5 (00:40→22:32)
--- NOTE | 2017-12-07 10:13 | PN ---
S CIWA - CIWA Score Nausea/Vomitin-No Nausea/No Vomiting Muscle Tremors: 4-Moderate,w/Arms Extend Anxiety: 4-Mod. Anxious/Guarded Agitation: 4-Moderately Restless Paroxysmal Sweats: 1-Minimal Palms Moist Orientation: 0-Oriented Tacttile Disturbances: 0-None Auditory Disturbances: 0-None Visual Disturbances: 0-None Headache: 0-None Present CIWA-Ar Total Score: 13 BHS Progress Note (SOAP) Subjective: ANXIETY,SWEATS,TREMORS,FATIGUE,INTERMITTENT SLEEP. Objective: 12/07/17 10:11 Vital Signs 12/07/17 12/07/17 12/07/17 02:30 03:00 03:30 Temperature Pulse Rate 71 71 75 Respiratory 20 20 16 Rate Blood Pressure 12/07/17 12/07/17 12/07/17 04:00 04:30 05:00 Temperature Pulse Rate 78 78 80 Respiratory 16 16 16 Rate Blood Pressure 12/07/17 12/07/17 12/07/17 05:30 06:00 06:10 Temperature 98.1 F Pulse Rate 80 80 80 Respiratory 16 16 16 Rate Blood Pressure 106/64 12/07/17 12/07/17 12/07/17 06:30 07:00 07:30 Temperature Pulse Rate 78 78 79 Respiratory 16 16 16 Rate Blood Pressure 12/07/17 12/07/17 12/07/17 08:00 08:30 09:00 Temperature Pulse Rate 90 97 H 98 H Respiratory 16 20 Rate Blood Pressure 12/07/17 12/07/17 12/07/17 09:07 09:30 10:00 Temperature 97.7 F Pulse Rate 95 H 94 H 92 H Respiratory 20 20 20 Rate Blood Pressure 147/83 Laboratory Tests 12/07/17 05:43 POC Glucometer 89 Assessment: 12/07/17 10:12 WITHDRAWAL SX 1/2 HRLY MONITORING X 24 HR R/T ALCOHOL INTOXICATION CONTINUED. Plan: CONTINUE DETOX PER PROTOCOL.
[2017-12-07] MEDS: PRENATAL VITAMINS W/ FOLIC ACID TABLET (FP) PO SCH (10:19)
[2017-12-07 10:25] LABS: HEMATOCRIT 34.5 % (35.4-49); HEMOGLOBIN 11.6 GM/dL (11.7-16.9); MCH 30.1 pg (25.7-33.7); MCHC 33.6 g/dl (32.0-35.9); MEAN CELL VOLUME 89.8 fl (80-96); PLATELET COUNT 150 K/MM3 (134-434); RBC 3.85 M/mm3 (4.00-5.60); RDW 14.1 % (11.9-15.9); WHITE BLOOD COUNT 2.1 K/mm3 (4.0-10.0)
[2017-12-07 10:38] LABS: CHLORIDE 103 mmol/L (98-107); SODIUM 140 mmol/L (136-145)
--- NOTE | 2017-12-07 10:59 | CONSULT ---
[facility] Psychiatric Consult - Data Date of interview: 12/07/17 Admission source: [facility] Identifying data: Patient is a 57 year old single male, father of one, unemployed, living with his sister and is supported by [employer]. This is one of multiple admissions for patient. Pt. admitted to for alcohol dependence. Substance Abuse History: Smoking Cessation. Smoking history: Current every day smoker. Have you smoked in the past 12 months: No. Cigars Per Day: 10. Hx Chewing Tobacco Use: No. Initiated information on smoking cessation: Yes. ' Breaking Loose' booklet given: 12/06/17. - Substance & Tx. History. Hx Alcohol Use: Yes. Hx Substance Use: Yes. Substance Use Type: Alcohol. Hx Substance Use Treatment: Yes ([facility] 11/09/17 -11/14/17). - Substances Abused. Alcohol. Route: Oral. Frequency: Daily. Amount used: 17 BEERS. Age of first use: 19. Date of Last Use: 12/06/17 Medical History: Left knee surgery Psychiatric History: Patient reports one psychiatric hospitalizatoin in [place] in 1984 after bizarre behavior while he was incarcerated at the [place] correctional facility. Pt. denies h/o OPD and suicide attempts. States he has been prescribed doxepin and seroquel and has received his prescriptions/refills from various emergency room, and detox/rehab facilities. As per Dr. Alvarez's note on 07/03/17 patient was also hospitalized at [facility] while in [facility] in 2009. Pt. has also received OPD care at the [facility] and at [facility]. Pt has been prescribed zyprexa 5mg and doxepine 25mg in the past but has a h/o nonadherence to psychotropic medications. Facility record shows previous diagnosis of Substance-induced Mood disorder and Schizoaffective Disorder. Physical/Sexual Abuse/Trauma History: Denies. Mental Status Exam - Mental Status Exam Alert and Oriented to: Time, Place, Person Cognitive Function: Good Patient Appearance: Unkempt Mood: Hopeful, Euthymic Affect: Mood Congruent Patient Behavior: Cooperative Speech Pattern: Appropriate Voice Loudness: Moderately Soft/Quiet Thought Process: Intact, Goal Oriented Thought Disorder: Not Present Hallucinations: Denies Suicidal Ideation: Denies Homicidal Ideation: Denies Insight/Judgement: Poor Sleep: Poorly Appetite: Fair Muscle strength/Tone: Normal Gait/Station: Normal Psychiatric Findings - Problem List ([place] 1, 2,3) (1) Alcohol dependence with uncomplicated withdrawal Current Visit: Yes Status: Acute (2) Nicotine dependence Current Visit: Yes Status: Acute Qualifiers: Nicotine product type: cigarettes Substance use status: in withdrawal Qualified Code(s): F17.213 - Nicotine dependence, cigarettes, with withdrawal (3) Substance induced mood disorder Current Visit: Yes Status: Acute (4) Knee pain Current Visit: Yes Status: Chronic Qualifiers: Chronicity: chronic Laterality: bilateral Qualified Code(s): M25.561 - Pain in right knee; M25.562 - Pain in left knee; G89.29 - Other chronic pain (5) Substance-induced sleep disorder Current Visit: Yes Status: Acute - Initial Treatment Plan Initial Treatment Plan: Psychoeducation provided. Zyprexa 5mg + Doxepine 25mg qhs ordered. Benefits and side effects discussed. Verbal consent given.
[2017-12-07 11:02] LABS: ALBUMIN 3.5 g/dl (3.4-5.0); ALK PHOS 90 U/L (45-117); ANION GAP 12 (8-16); BILIRUBIN,TOTAL 0.4 mg/dL (0.2-1.0); BLOOD UREA NITROGEN 8 mg/dL (7-18); CALCIUM 8.9 mg/dL (8.5-10.1); CO2 25 mmol/L (21-32); CREATININE 0.6 mg/dL (0.7-1.3); GLUCOSE,RANDOM 73 mg/dL (74-106); SGOT/AST 49 U/L (15-37); SGPT/ALT 36 U/L (12-78); TOT PROT 7.4 g/dl (6.4-8.2)
--- NOTE | 2017-12-07 12:45 | EKG ---
Test Reason : Blood Pressure : / mmHG Vent. Rate : 064 BPM Atrial Rate : 064 BPM P-R Int : 188 ms QRS Dur : 102 ms QT Int : 454 ms P-R-T Axes : 059 075 069 degrees QTc Int : 468 ms NORMAL SINUS RHYTHM WITH SINUS ARRHYTHMIA NORMAL ECG WHEN COMPARED WITH ECG OF 10-NOV-2017 01:36, T WAVE INVERSION NO LONGER EVIDENT IN ANTERIOR LEADS Confirmed by JASON ALSTON, NAKITA ([id number]) on 12/07/2017 12:45:48 PM Referred By: Confirmed By:NAKITA GOMEZ MD
[2017-12-07] MEDS: HYDROCORTISONE 1% TOPICAL OINT 30 GM TUBE TP PRN (13:01)
[2017-12-07] MEDS ORDERED: OLANZapine 2.5 MG TABLET PO SCH ×2 (22:00)
[2017-12-07] MEDS: OLANZapine 5 MG TABLET PO SCH (22:29)
[2017-12-07] MEDS: ACETAMINOPHEN 325 MG TABLET (FP) PO PRN (22:32)
[2017-12-07] MEDS: DOXEPIN HCL 25 MG CAPSULE PO SCH (23:44)
[2017-12-08 00:24] LABS: URINE APPEARANCE CLEAR; URINE BILIRUBIN NEGATIVE (<2.0 mg/dL); URINE COLOR YELLOW; URINE GLUCOSE (UA) NEGATIVE (NEGATIVE); URINE KETONE NEGATIVE (NEGATIVE); URINE LEUK ESTERASE NEGATIVE (NEGATIVE); URINE NITRITE NEGATIVE (NEGATIVE); URINE PROTEIN NEGATIVE (NEGATIVE)
[2017-12-08] MEDS: chlordiazePOXIDE HCL 25 MG CAPSULE PO SCH ×3 (05:28→17:39)
[2017-12-08] MEDS: PRENATAL VITAMINS W/ FOLIC ACID TABLET (FP) PO SCH (10:30)
[2017-12-08] MEDS: ACETAMINOPHEN 325 MG TABLET (FP) PO PRN ×2 (10:32→22:18)
[2017-12-08] MEDS: HYDROCORTISONE 1% TOPICAL OINT 30 GM TUBE TP PRN (10:33)
--- NOTE | 2017-12-08 11:49 | PN ---
S CIWA - CIWA Score Nausea/Vomitin-No Nausea/No Vomiting Muscle Tremors: 4-Moderate,w/Arms Extend Anxiety: 4-Mod. Anxious/Guarded Agitation: 3 Paroxysmal Sweats: 1-Minimal Palms Moist Orientation: 0-Oriented Tacttile Disturbances: 0-None Auditory Disturbances: 0-None Visual Disturbances: 0-None Headache: 0-None Present CIWA-Ar Total Score: 12 BHS Progress Note (SOAP) Subjective: ALERT O X 3. DECREASED TREMORS,ANXIETY. OOB AMBULATING WITH STEADY GAIT. Objective: 12/08/17 11:46 Vital Signs 12/08/17 12/08/17 06:27 09:15 Temperature 97.1 F L 97.0 F L Pulse Rate 62 75 Respiratory 18 18 Rate Blood Pressure 101/48 120/74 Laboratory Tests 12/07/17 12/07/17 12/07/17 05:43 08:00 08:00 WBC 2.1 L RBC 3.85 L Hgb 11.6 L Hct 34.5 L MCV 89.8 MCH 30.1 MCHC 33.6 RDW 14.1 Plt Count 150 MPV 9.0 Sodium Potassium Chloride Carbon Dioxide Anion Gap BUN Creatinine Creat Clearance w eGFR POC Glucometer 89 Random Glucose Calcium Total Bilirubin AST ALT Alkaline Phosphatase Total Protein Albumin Urine Color Urine Appearance Urine pH Ur Specific [place] Urine Protein Urine Glucose (UA) Urine Ketones Urine Blood Urine Nitrite Urine Bilirubin Urine Urobilinogen Ur Leukocyte Esterase HIV 1&2 Antibody Screen Negative HIV P24 Antigen Negative 12/07/17 12/07/17 12/08/17 08:00 16:40 05:29 WBC RBC Hgb Hct MCV MCH MCHC RDW Plt Count MPV Sodium 140 Potassium 4.0 Chloride 103 Carbon Dioxide 25 Anion Gap 12 BUN 8 Creatinine 0.6 L Creat Clearance w eGFR > 60 POC Glucometer 163 Random Glucose 73 L Calcium 8.9 Total Bilirubin 0.4 AST 49 H ALT 36 Alkaline Phosphatase 90 Total Protein 7.4 Albumin 3.5 Urine Color Yellow Urine Appearance Clear Urine pH 6.0 Ur Specific [place] 1.014 Urine Protein Negative Urine Glucose (UA) Negative Urine Ketones Negative Urine Blood Negative Urine Nitrite Negative Urine Bilirubin Negative Urine Urobilinogen 2.0 Ur Leukocyte Esterase Negative HIV 1&2 Antibody Screen HIV P24 Antigen Assessment: 12/08/17 11:47 WITHDRAWAL SX Plan: CONTINUE DETOX
[2017-12-08] MEDS: IBUPROFEN 400 MG TABLET (FP) PO PRN (17:40)
[2017-12-08] MEDS: THIAMINE HCL 100 MG TABLET (FP) PO SCH (22:19)
[2017-12-08] MEDS: DOXEPIN HCL 25 MG CAPSULE PO SCH (22:19)
[2017-12-08] MEDS: chlordiazePOXIDE 5 MG CAPSULE PO SCH (22:19)
[2017-12-08] MEDS: OLANZapine 5 MG TABLET PO SCH (22:19)
[2017-12-09] MEDS: chlordiazePOXIDE 5 MG CAPSULE PO SCH ×3 (05:23→17:06)
[2017-12-09] MEDS: PRENATAL VITAMINS W/ FOLIC ACID TABLET (FP) PO SCH (10:04)
[2017-12-09] MEDS: IBUPROFEN 400 MG TABLET (FP) PO PRN (10:06)
[2017-12-09] MEDS: HYDROCORTISONE 1% TOPICAL OINT 30 GM TUBE TP PRN (10:17)
--- NOTE | 2017-12-09 10:33 | PN ---
BHS Progress Note (SOAP) Subjective: TREMORS RESOLVED, SLIGHT ANXIETY,SWEATS. Objective: 12/09/17 10:33 Vital Signs 12/09/17 12/09/17 03:30 05:58 Temperature 97.1 F L Pulse Rate 83 Respiratory 18 18 Rate Blood Pressure 116/72 Laboratory Tests 12/07/17 12/07/17 12/07/17 05:43 08:00 08:00 WBC 2.1 L RBC 3.85 L Hgb 11.6 L Hct 34.5 L MCV 89.8 MCH 30.1 MCHC 33.6 RDW 14.1 Plt Count 150 MPV 9.0 Sodium Potassium Chloride Carbon Dioxide Anion Gap BUN Creatinine Creat Clearance w eGFR POC Glucometer 89 Random Glucose Calcium Total Bilirubin AST ALT Alkaline Phosphatase Total Protein Albumin Urine Color Urine Appearance Urine pH Ur Specific [place] Urine Protein Urine Glucose (UA) Urine Ketones Urine Blood Urine Nitrite Urine Bilirubin Urine Urobilinogen Ur Leukocyte Esterase RPR Titer HIV 1&2 Antibody Screen Negative HIV P24 Antigen Negative 12/07/17 12/07/17 12/07/17 08:00 08:00 16:40 WBC RBC Hgb Hct MCV MCH MCHC RDW Plt Count MPV Sodium 140 Potassium 4.0 Chloride 103 Carbon Dioxide 25 Anion Gap 12 BUN 8 Creatinine 0.6 L Creat Clearance w eGFR > 60 POC Glucometer Random Glucose 73 L Calcium 8.9 Total Bilirubin 0.4 AST 49 H ALT 36 Alkaline Phosphatase 90 Total Protein 7.4 Albumin 3.5 Urine Color Yellow Urine Appearance Clear Urine pH 6.0 Ur Specific [place] 1.014 Urine Protein Negative Urine Glucose (UA) Negative Urine Ketones Negative Urine Blood Negative Urine Nitrite Negative Urine Bilirubin Negative Urine Urobilinogen 2.0 Ur Leukocyte Esterase Negative RPR Titer Nonreactive HIV 1&2 Antibody Screen HIV P24 Antigen 12/08/17 12/09/17 05:29 05:22 WBC RBC Hgb Hct MCV MCH MCHC RDW Plt Count MPV Sodium Potassium Chloride Carbon Dioxide Anion Gap BUN Creatinine Creat Clearance w eGFR POC Glucometer 163 141 Random Glucose Calcium Total Bilirubin AST ALT Alkaline Phosphatase Total Protein Albumin Urine Color Urine Appearance Urine pH Ur Specific [place] Urine Protein Urine Glucose (UA) Urine Ketones Urine Blood Urine Nitrite Urine Bilirubin Urine Urobilinogen Ur Leukocyte Esterase RPR Titer HIV 1&2 Antibody Screen HIV P24 Antigen Assessment: 12/09/17 10:33 DECREASED WITHDRAWAL SX Plan: CONTINUE DETOX
[2017-12-09] MEDS: ACETAMINOPHEN 325 MG TABLET (FP) PO PRN (17:08)
[2017-12-09] MEDS ORDERED: NAPROXEN 500 MG TABLET (FP) PO SCH (22:00)
[2017-12-09] MEDS: DOXEPIN HCL 25 MG CAPSULE PO SCH (22:11)
[2017-12-09] MEDS: OLANZapine 5 MG TABLET PO SCH (22:11)
[2017-12-09] MEDS: chlordiazePOXIDE HCL 10 MG CAPSULE PO SCH (22:11)
[2017-12-09] MEDS: THIAMINE HCL 100 MG TABLET (FP) PO SCH (22:11)
[2017-12-10] MEDS: chlordiazePOXIDE HCL 10 MG CAPSULE PO SCH (05:46)
[2017-12-10 06:17] VITALS: BP 103/58; PULSE 49; TEMP 97.5
--- NOTE | 2017-12-10 19:36 | PN ---
S Progress Note (SOAP) Subjective: Patient denies current Detox symptoms and reports that he feels well overall. Objective: PATIENT A & O X 3, OBSERVED AMBULATING ON UNIT. NO ACUTE DISTRESS. 12/10/17 19:34 Vital Signs Temperature 97.5 F L 12/10/17 06:17 Pulse Rate 49 L 12/10/17 06:17 Respiratory Rate 18 12/10/17 06:17 Blood Pressure 103/58 12/10/17 06:17 O2 Sat by Pulse Oximetry (%) Laboratory Tests 12/07/17 12/07/17 12/07/17 05:43 08:00 08:00 WBC 2.1 L RBC 3.85 L Hgb 11.6 L Hct 34.5 L MCV 89.8 MCH 30.1 MCHC 33.6 RDW 14.1 Plt Count 150 MPV 9.0 Sodium Potassium Chloride Carbon Dioxide Anion Gap BUN Creatinine Creat Clearance w eGFR POC Glucometer 89 Random Glucose Calcium Total Bilirubin AST ALT Alkaline Phosphatase Total Protein Albumin Urine Color Urine Appearance Urine pH Ur Specific [place] Urine Protein Urine Glucose (UA) Urine Ketones Urine Blood Urine Nitrite Urine Bilirubin Urine Urobilinogen Ur Leukocyte Esterase RPR Titer HIV 1&2 Antibody Screen Negative HIV P24 Antigen Negative 12/07/17 12/07/17 12/07/17 08:00 08:00 16:40 WBC RBC Hgb Hct MCV MCH MCHC RDW Plt Count MPV Sodium 140 Potassium 4.0 Chloride 103 Carbon Dioxide 25 Anion Gap 12 BUN 8 Creatinine 0.6 L Creat Clearance w eGFR > 60 POC Glucometer Random Glucose 73 L Calcium 8.9 Total Bilirubin 0.4 AST 49 H ALT 36 Alkaline Phosphatase 90 Total Protein 7.4 Albumin 3.5 Urine Color Yellow Urine Appearance Clear Urine pH 6.0 Ur Specific [place] 1.014 Urine Protein Negative Urine Glucose (UA) Negative Urine Ketones Negative Urine Blood Negative Urine Nitrite Negative Urine Bilirubin Negative Urine Urobilinogen 2.0 Ur Leukocyte Esterase Negative RPR Titer Nonreactive HIV 1&2 Antibody Screen HIV P24 Antigen 12/08/17 12/09/17 12/10/17 05:29 05:22 05:45 WBC RBC Hgb Hct MCV MCH MCHC RDW Plt Count MPV Sodium Potassium Chloride Carbon Dioxide Anion Gap BUN Creatinine Creat Clearance w eGFR POC Glucometer 163 141 117 Random Glucose Calcium Total Bilirubin AST ALT Alkaline Phosphatase Total Protein Albumin Urine Color Urine Appearance Urine pH Ur Specific [place] Urine Protein Urine Glucose (UA) Urine Ketones Urine Blood Urine Nitrite Urine Bilirubin Urine Urobilinogen Ur Leukocyte Esterase RPR Titer HIV 1&2 Antibody Screen HIV P24 Antigen LABS NOTED. Assessment: 12/10/17 19:35 COMPLETION OF DETOX REGIMEN. Plan: PATIENT SCHEDULED FOR DISCHARGE FROM DETOX UNIT TODAY.
--- NOTE | 2017-12-10 19:40 | DS ---
[facility] Detox Discharge Summary Admission Date: 12/06/17 Discharge Date: 12/10/17 - History Present History: Alcohol Dependence Additional Comments: PATIENT ADVISED TO CONSIDER LOCAL 12-STEP / AA OUTPATIENT SUPPORT GROUPS FOR AFTERCARE. PATIENT WAS DISCHARGED FROM DETOX UNIT IN STABLE MEDICAL CONDITION. Pertinent Past History: Knee Pain, DM, History of Leukopenia, History of Positive PPD (Treated), Bereavement, Insomnia, Bereavement, Weight Decreased, Nicotine Dependence. - Physical Exam Results Vital Signs: Vital Signs Temperature 97.5 F L 12/10/17 06:17 Pulse Rate 49 L 12/10/17 06:17 Respiratory Rate 18 12/10/17 06:17 Blood Pressure 103/58 12/10/17 06:17 O2 Sat by Pulse Oximetry (%) Pertinent Admission Physical Exam Findings: WITHDRAWAL SYMPTOMS. Laboratory Tests 12/07/17 12/07/17 12/07/17 05:43 08:00 08:00 WBC 2.1 L RBC 3.85 L Hgb 11.6 L Hct 34.5 L MCV 89.8 MCH 30.1 MCHC 33.6 RDW 14.1 Plt Count 150 MPV 9.0 Sodium Potassium Chloride Carbon Dioxide Anion Gap BUN Creatinine Creat Clearance w eGFR POC Glucometer 89 Random Glucose Calcium Total Bilirubin AST ALT Alkaline Phosphatase Total Protein Albumin Urine Color Urine Appearance Urine pH Ur Specific [place] Urine Protein Urine Glucose (UA) Urine Ketones Urine Blood Urine Nitrite Urine Bilirubin Urine Urobilinogen Ur Leukocyte Esterase RPR Titer HIV 1&2 Antibody Screen Negative HIV P24 Antigen Negative 12/07/17 12/07/17 12/07/17 08:00 08:00 16:40 WBC RBC Hgb Hct MCV MCH MCHC RDW Plt Count MPV Sodium 140 Potassium 4.0 Chloride 103 Carbon Dioxide 25 Anion Gap 12 BUN 8 Creatinine 0.6 L Creat Clearance w eGFR > 60 POC Glucometer Random Glucose 73 L Calcium 8.9 Total Bilirubin 0.4 AST 49 H ALT 36 Alkaline Phosphatase 90 Total Protein 7.4 Albumin 3.5 Urine Color Yellow Urine Appearance Clear Urine pH 6.0 Ur Specific [place] 1.014 Urine Protein Negative Urine Glucose (UA) Negative Urine Ketones Negative Urine Blood Negative Urine Nitrite Negative Urine Bilirubin Negative Urine Urobilinogen 2.0 Ur Leukocyte Esterase Negative RPR Titer Nonreactive HIV 1&2 Antibody Screen HIV P24 Antigen 12/08/17 12/09/17 12/10/17 05:29 05:22 05:45 WBC RBC Hgb Hct MCV MCH MCHC RDW Plt Count MPV Sodium Potassium Chloride Carbon Dioxide Anion Gap BUN Creatinine Creat Clearance w eGFR POC Glucometer 163 141 117 Random Glucose Calcium Total Bilirubin AST ALT Alkaline Phosphatase Total Protein Albumin Urine Color Urine Appearance Urine pH Ur Specific [place] Urine Protein Urine Glucose (UA) Urine Ketones Urine Blood Urine Nitrite Urine Bilirubin Urine Urobilinogen Ur Leukocyte Esterase RPR Titer HIV 1&2 Antibody Screen HIV P24 Antigen LABS NOTED. - Treatment Hospital Course: Detox Protocol Followed, Detoxed Safely, Responded well, Discharged Condition Good Patient has Accepted a Rehab Referral to: PT ADVISED TO CONSIDER LOCAL 12-STEP/ AA OUTPATIENT SUPPORT GROUPS. - Medication Discharge Medications: Ambulatory Orders Olanzapine [Zyprexa -] 20 mg PO HS #30 tablet 12/01/16 Doxepin HCl [Sinequan -] 25 mg PO HS 12/07/17 Doxepin HCl [Sinequan -] 25 mg PO HS #30 capsule 12/09/17 Olanzapine [Zyprexa -] 5 mg PO HS #30 tablet 12/09/17 - Diagnosis (1) Alcohol dependence with uncomplicated withdrawal Status: Acute (2) Bereavement Status: Acute (3) Nicotine dependence Status: Acute Qualifiers: Nicotine product type: cigarettes Substance use status: in withdrawal Qualified Code(s): F17.213 - Nicotine dependence, cigarettes, with withdrawal (4) Substance induced mood disorder Status: Acute (5) Substance-induced sleep disorder Status: Acute (6) Weight decreased Status: Acute (7) Knee pain Status: Chronic Qualifiers: Chronicity: chronic Laterality: bilateral Qualified Code(s): M25.561 - Pain in right knee; M25.562 - Pain in left knee; G89.29 - Other chronic pain (8) Positive PPD, treated Status: Acute (9) Insomnia Status: Acute Qualifiers: Insomnia type: unspecified Qualified Code(s): G47.00 - Insomnia, unspecified (10) Psychiatric disorder Status: Suspected - AMA Did Patient Leave Against Medical Advice: No
== END 2017-12-10 06:50 | disposition home or self-care (01) | DRG 775 ==
LOC: YASAS 20:37 → Y3N 23:57
PROVIDERS: ADMIT Surgery; ATTEND Surgery
PROC: HZ2ZZZZ Detoxification Services for Substance Abuse Treatment (ICD-10-PCS; principal; 2017-12-06)
DX: F10.230 Alcohol dependence with withdrawal, uncomplicated (principal); F17.210 Nicotine dependence, cigarettes, uncomplicated; F19.24 Other psychoactive substance dependence with psychoactive substance-induced mood disorder; F19.282 Other psychoactive substance dependence with psychoactive substance-induced sleep disorder; F25.9 Schizoaffective disorder, unspecified; F99 Mental disorder, not otherwise specified; G47.00 Insomnia, unspecified; M25.561 Pain in right knee; M25.562 Pain in left knee; R63.4 Abnormal weight loss; Z68.21 Body mass index [BMI] 21.0-21.9, adult; R73.03 Prediabetes; R76.11 Nonspecific reaction to tuberculin skin test without active tuberculosis
CPT/HCPCS: 36415; 80053; 81003; 82962; 85027; 86593; 87389; 93005; 93010

== ENCOUNTER 2017-12-27 18:56 | Inpatient (IN) | payer OTHER ==
[2017-12-27] MEDS ORDERED: MELATONIN 5 MG TABLETS PO PRN (22:00)
[2017-12-27] MEDS ORDERED: MAGNESIUM CITRATE 300 ML BOTTLE PO PRN (22:09)
[2017-12-27] MEDS ORDERED: chlordiazePOXIDE HCL 25 MG CAPSULE PO PRN (22:09)
[2017-12-27] MEDS ORDERED: MENTHOL/PHENOL 1 EACH UD MM PRN (22:09)
[2017-12-27] MEDS ORDERED: MAGNESIUM HYDROX 2400MG/30ML ORAL SUSPENSION 30 ML CUP PO PRN (22:09)
[2017-12-27] MEDS ORDERED: guaiFENesin/D-METHORPHAN HB 10 ML UNIT-DOSE CUPS PO PRN (22:09)
[2017-12-27] MEDS ORDERED: LOPERAMIDE HCL 2 MG CAPSULE PO PRN (22:09)
[2017-12-27] MEDS ORDERED: MAG HYDROX/AL HYDROX/SIMETH 30 ML UNIT-DOSE CUP PO PRN (22:09)
[2017-12-27] MEDS ORDERED: hydrOXYzine PAMOATE 50 MG CAPSULE (FP) PO PRN (22:09)
[2017-12-27] MEDS ORDERED: P-EPHED 60MG/TRIPROLIDI 2.5MG TABLET PO PRN (22:09)
[2017-12-27] MEDS ORDERED: NICOTINE POLACRILEX 2 MG GUM BC PRN (22:09)
--- NOTE | 2017-12-27 22:09 | HP ---
CIWA Score - CIWA Score Nausea/Vomitin Muscle Tremors: 2 Anxiety: 3 Agitation: 2 Paroxysmal Sweats: 1-Minimal Palms Moist Orientation: 0-Oriented Tacttile Disturbances: 2-Mild Itch/Numbness/Burn (fingertips bilateral) Auditory Disturbances: 0-None Visual Disturbances: 0-None Headache: 0-None Present CIWA-Ar Total Score: 13 Admission ROS BHS - HPI Chief Complaint: alcohol withdrawal symptoms Allergies/Adverse Reactions: Allergies Allergy/AdvReac Type Severity Reaction Status Date / Time No Known Allergies Allergy Verified 12/12/17 22:30 History of Present Illness: The patient is a 57 year old male with a history of Alcohol Abuse, Schizophrenia , Depression, DM, Chronic knee pain, presents today for alcohol detox, patient is well known to our ER at [facility] and [facility]. Michael suicidal / homicidal ideation, visual or auditory hallucinations. Exam Limitations: No Limitations - Review of Systems Constitutional: Chills, Loss of Appetite, Changes in sleep, Unintentional Wgt. Loss EENT: reports: No Symptoms Reported Respiratory: reports: No Symptoms reported Cardiac: reports: No Symptoms Reported GI: reports: Diarrhea, Nausea, Poor Appetite, Poor Fluid Intake : reports: No Symptoms Reported Musculoskeletal: reports: Back Pain, Joint Pain Integumentary: reports: Rash, Other (abrasion on the rigth forearm from fall one week ago) Endocrine: reports: Increased Thirst Hematology: reports: No Symptoms Reported Psychiatric: reports: Orientated x3, Anxious Other Systems: Reviewed and Negative Patient History - Patient Medical History Hx Anemia: No Hx Asthma: No Hx Chronic Obstructive Pulmonary Disease (COPD): No Hx Cancer: No Hx Cardiac Disorders: No Hx Congestive Heart Failure: No Hx Hypertension: No Hx Hypercholesterolemia: No Hx Pacemaker: No HX Cerebrovascular Accident: No Hx Seizures: No Hx Dementia: No Hx Diabetes: Yes Hx Gastrointestinal Disorders: No Hx Liver Disease: No Hx Genitourinary Disorders: No Hx Sexually Transmitted Disorders: No Hx Renal Disease (ESRD): No Hx Thyroid Disease: No Hx Human Immunodeficiency Virus (HIV): (Negative 2017) Hx Hepatitis C: No Hx Depression: Yes (Not on medication) Hx Suicide Attempt: No (Denies suicidal ideation at this time) Hx Bipolar Disorder: No Hx Schizophrenia: Yes - Patient Surgical History Past Surgical History: Yes Hx Neurologic Surgery: No Hx Cataract Extraction: No Hx Cardiac Surgery: No Hx Lung Surgery: No Hx Breast Surgery: No Hx Breast Biopsy: No Hx Abdominal Surgery: No Hx Appendectomy: No Hx Cholecystectomy: No Hx Genitourinary Surgery: No Hx Section: No Hx Orthopedic Surgery: Yes (LT KNEE SX) Anesthesia Reaction: No - PPD History Results: 02/25/17 NEG CX PPD to be Administered?: No - Smoking Cessation Smoking history: Current every day smoker Have you smoked in the past 12 months: Yes Aproximately how many cigarettes per day: 10 Cigars Per Day: 10 Hx Chewing Tobacco Use: No Initiated information on smoking cessation: Yes 'Breaking Loose' booklet given: 12/27/17 - Substance & Tx. History Hx Alcohol Use: Yes Hx Substance Use: Yes Substance Use Type: Alcohol Hx Substance Use Treatment: Yes ([facility] 12/06/17 -12/10/17) - Substances Abused Alcohol Route: Oral Frequency: Daily Amount used: 6 x16 oz beers Age of first use: 7 Date of Last Use: 12/27/17 Family Disease History - Family Disease History Family Disease History: Other: Brother (alcohol,dsa) Admission Physical Exam [facility] - Physical General Appearance: Yes: Mild Distress, Alcohol on Breath, Thin, Anxious, Other (malodorous) HEENTM: Yes: EOMI, Hearing grossly Normal, Normal ENT Inspection, Normocephalic , Normal Voice, MISSY, Pharynx Normal, Tm's normal, Other (poor dentition) Respiratory: Yes: Chest Non-Tender, Lungs Clear, Normal Breath Sounds, No Respiratory Distress, No Accessory Muscle Use Neck: Yes: Within Normal Limits Breast: Yes: Breast Exam Deferred Cardiology: Yes: Regular Rhythm, Regular Rate Abdominal: Yes: Normal Bowel Sounds, Non Tender, Flat, Soft Genitourinary: Yes: Within Normal Limits Back: Yes: Normal Inspection Musculoskeletal: Yes: full range of Motion, Gait Steady, Pelvis Stable, Back pain Extremities: Yes: Normal Capillary Refill, Normal Inspection, Normal Range of Motion, Non-Tender Neurological: Yes: mid level java developer II-XII NML intact, Fully Oriented, Alert, Motor Strength 5/5, Depressed Affect Integumentary: Yes: Normal Color, Warm, Diaphoresis, Other (healing abreasion on the right arm, no infection) Lymphatic: Yes: Within Normal Limits - Diagnostic (1) Alcohol dependence with uncomplicated withdrawal Current Visit: Yes Status: Acute (2) Knee pain, left Current Visit: Yes Status: Chronic Qualifiers: Chronicity: chronic Qualified Code(s): M25.562 - Pain in left knee; G89.29 - Other chronic pain (3) Nicotine dependence Current Visit: Yes Status: Chronic Qualifiers: Nicotine product type: cigarettes Substance use status: in withdrawal Qualified Code(s): F17.213 - Nicotine dependence, cigarettes, with withdrawal (4) Non compliance with medical treatment Current Visit: Yes Status: Chronic (5) Positive PPD, treated Current Visit: Yes Status: Chronic (6) Weight decreased Current Visit: Yes Status: Acute (7) Psychiatric disorder Current Visit: Yes Status: Suspected Cleared for Admission S - Detox or Rehab [facility] Level of Care: Medically Managed Detox Regimen/Protocol: Librium S Breath Alcohol Content Breath Alcohol Content: 0.134
[2017-12-27 22:21] VITALS: BMI 20.9
[2017-12-28] MEDS: chlordiazePOXIDE HCL 25 MG CAPSULE PO SCH ×5 (00:51→22:22)
[2017-12-28 09:45] LABS: URINE APPEARANCE SLCLOUDY; URINE BILIRUBIN NEGATIVE (<2.0 mg/dL); URINE COLOR YELLOW; URINE GLUCOSE (UA) NEGATIVE (NEGATIVE); URINE KETONE NEGATIVE (NEGATIVE); URINE LEUK ESTERASE NEGATIVE (NEGATIVE); URINE NITRITE NEGATIVE (NEGATIVE); URINE PROTEIN NEGATIVE (NEGATIVE); URINE UROBILINOGEN NEGATIVE mg/dL (0.2-1.0)
[2017-12-28 09:48] LABS: HEMATOCRIT 33.8 % (35.4-49); HEMOGLOBIN 11.5 GM/dL (11.7-16.9); MCH 30.5 pg (25.7-33.7); MCHC 34.1 g/dl (32.0-35.9); MEAN CELL VOLUME 89.3 fl (80-96); MEAN PLT VOLUME 9.6 fl (7.5-11.1); PLATELET COUNT 129 K/MM3 (134-434); RBC 3.78 M/mm3 (4.00-5.60); WHITE BLOOD COUNT 2.4 K/mm3 (4.0-10.0)
[2017-12-28 10:01] LABS: CHLORIDE 102 mmol/L (98-107); POTASSIUM 3.9 mmol/L (3.5-5.1); SODIUM 138 mmol/L (136-145)
[2017-12-28 10:25] LABS: ALBUMIN 3.3 g/dl (3.4-5.0); ALK PHOS 80 U/L (45-117); ANION GAP 11 (8-16); BILIRUBIN,TOTAL 0.9 mg/dL (0.2-1.0); BLOOD UREA NITROGEN 10 mg/dL (7-18); CALCIUM 8.4 mg/dL (8.5-10.1); CO2 25 mmol/L (21-32); CREATININE 0.6 mg/dL (0.7-1.3); GLUCOSE,RANDOM 73 mg/dL (74-106); SGOT/AST 67 U/L (15-37); SGPT/ALT 46 U/L (12-78); TOT PROT 6.8 g/dl (6.4-8.2)
[2017-12-28] MEDS: PRENATAL VITAMINS W/ FOLIC ACID TABLET (FP) PO SCH (10:48)
[2017-12-28] MEDS: NICOTINE 14 MG/24 HOURS TOPICAL PATCH TD SCH (10:49)
--- NOTE | 2017-12-28 12:56 | PN ---
S CIWA - CIWA Score Nausea/Vomitin-No Nausea/No Vomiting Muscle Tremors: 4-Moderate,w/Arms Extend Anxiety: 4-Mod. Anxious/Guarded Agitation: 4-Moderately Restless Paroxysmal Sweats: 1-Minimal Palms Moist Orientation: 0-Oriented Tacttile Disturbances: 0-None Auditory Disturbances: 0-None Visual Disturbances: 0-None Headache: 0-None Present CIWA-Ar Total Score: 13 BHS Progress Note (SOAP) Subjective: SLIGHT TREMORS, ANXIETY, FATIGUE. OOB AMBULATING WITH STEADY GAIT. ALERT O X 3. Objective: 12/28/17 12:55 Vital Signs 12/28/17 12/28/17 12/28/17 05:00 05:30 06:00 Temperature Pulse Rate 71 69 66 Respiratory 18 18 18 Rate Blood Pressure 12/28/17 12/28/17 12/28/17 06:17 06:30 07:00 Temperature 98.5 F Pulse Rate 66 66 69 Respiratory 18 18 18 Rate Blood Pressure 121/78 12/28/17 12/28/17 12/28/17 07:30 08:00 08:30 Temperature Pulse Rate 71 74 70 Respiratory 18 18 16 Rate Blood Pressure 12/28/17 12/28/17 12/28/17 09:00 09:30 09:53 Temperature 98.0 F Pulse Rate 78 82 70 Respiratory 16 16 16 Rate Blood Pressure 105/69 12/28/17 12/28/17 12/28/17 09:56 10:00 10:30 Temperature 98.0 F Pulse Rate 70 84 87 Respiratory 16 20 20 Rate Blood Pressure 105/69 12/28/17 12/28/17 11:00 11:30 Temperature Pulse Rate 83 85 Respiratory 20 20 Rate Blood Pressure Laboratory Tests 12/28/17 12/28/17 12/28/17 00:46 07:00 07:00 WBC 2.4 L RBC 3.78 L Hgb 11.5 L Hct 33.8 L MCV 89.3 MCH 30.5 MCHC 34.1 RDW 14.0 Plt Count 129 L MPV 9.6 Sodium 138 Potassium 3.9 Chloride 102 Carbon Dioxide 25 Anion Gap 11 BUN 10 Creatinine 0.6 L Creat Clearance w eGFR > 60 POC Glucometer 106 Random Glucose 73 L Calcium 8.4 L Total Bilirubin 0.9 AST 67 H D ALT 46 D Alkaline Phosphatase 80 D Total Protein 6.8 Albumin 3.3 L Urine Color Urine Appearance Urine pH Ur Specific [place] Urine Protein Urine Glucose (UA) Urine Ketones Urine Blood Urine Nitrite Urine Bilirubin Urine Urobilinogen Ur Leukocyte Esterase RPR Titer 12/28/17 12/28/17 07:00 07:00 WBC RBC Hgb Hct MCV MCH MCHC RDW Plt Count MPV Sodium Potassium Chloride Carbon Dioxide Anion Gap BUN Creatinine Creat Clearance w eGFR POC Glucometer Random Glucose Calcium Total Bilirubin AST ALT Alkaline Phosphatase Total Protein Albumin Urine Color Yellow Urine Appearance Slcloudy Urine pH 5.0 Ur Specific [place] 1.015 Urine Protein Negative Urine Glucose (UA) Negative Urine Ketones Negative Urine Blood Negative Urine Nitrite Negative Urine Bilirubin Negative Urine Urobilinogen Negative Ur Leukocyte Esterase Negative RPR Titer Nonreactive Assessment: 12/28/17 12:55 WITHDRAWAL SX Plan: CONTINUE DETOX
--- NOTE | 2017-12-28 15:49 | CONSULT ---
[facility] Psychiatric Consult - Data Date of interview: 12/28/17 Admission source: [facility] Identifying data: Patient is a 57 year old single male, father of one, unemployed, living with sister and supported by [facility]. This is one of multiple admissions for patient. Pt. admitted to for alcohol dependence. Substance Abuse History: - Smoking Cessation. Smoking history: Current every day smoker. Have you smoked in the past 12 months: Yes. Aproximately how many cigarettes per day: 10. Cigars Per Day: 10. Hx Chewing Tobacco Use: No. Initiated information on smoking cessation: Yes. 'Breaking Loose' booklet given : 12/27/17. - Substance & Tx. History. Hx Alcohol Use: Yes. Hx Substance Use : Yes. Substance Use Type: Alcohol. Hx Substance Use Treatment: Yes ([facility] 12/06 -12/10/17). - Substances Abused. Alcohol. Route: Oral. Frequency: Daily. Amount used: 6 x16 oz beers. Age of first use: 7. Date of Last Use: Medical History: Diabetes Psychiatric History: Patient reports two psychiatric hospitalization ( [facility] in 2009 and [facility] in [facility] ). Pt. denies current OPD. Reports past history of OPD with Dr Do at [facility]. States he is prescribed zyprexa and doxepin. Residential Interior Designer has seen patient several times in the past. As per history, patient has accepted zyprexa 5mg + Doxepin 25mg. Receives refills from detox and rehab facilities. Pt. reports sub- optimal adherence to medication. Pt. refusing to accept zyprexa and doxepine. Pt. denies h/o suicide attempt. Physical/Sexual Abuse/Trauma History: Denies. Mental Status Exam - Mental Status Exam Alert and Oriented to: Time, Place, Person Cognitive Function: Good Patient Appearance: Unkempt Mood: Hopeful Affect: Mood Congruent Patient Behavior: Cooperative Speech Pattern: Appropriate Voice Loudness: Normal Thought Process: Goal Oriented Thought Disorder: Not Present Hallucinations: Denies Suicidal Ideation: Denies Homicidal Ideation: Denies Insight/Judgement: Poor Sleep: Poorly Appetite: Fair Muscle strength/Tone: Normal Gait/Station: Normal Psychiatric Findings - Problem List ([place] 1, 2,3) (1) Alcohol dependence with uncomplicated withdrawal Current Visit: Yes Status: Acute (2) Nicotine dependence Current Visit: Yes Status: Acute Qualifiers: Nicotine product type: cigarettes Substance use status: in withdrawal Qualified Code(s): F17.213 - Nicotine dependence, cigarettes, with withdrawal (3) Knee pain, left Current Visit: Yes Status: Chronic Qualifiers: Chronicity: chronic Qualified Code(s): M25.562 - Pain in left knee; G89.29 - Other chronic pain (4) Positive PPD, treated Current Visit: Yes Status: Chronic (5) Substance-induced sleep disorder Current Visit: Yes Status: Acute (6) Substance induced mood disorder Current Visit: Yes Status: Acute - Initial Treatment Plan Initial Treatment Plan: Psychoeducation provided. Detoxification in progress. Ambien 5mg qhs prn ordered. Benefits and side effects discussed. Pt made aware of the risk of parasomnia. Verbal consent given.
[2017-12-28] MEDS: IBUPROFEN 400 MG TABLET (FP) PO PRN (19:48)
[2017-12-28] MEDS: ACETAMINOPHEN 325 MG TABLET (FP) PO PRN (22:21)
[2017-12-28] MEDS: ZOLPIDEM TARTRATE 5 MG TABLET PO PRN (22:22)
[2017-12-28] MEDS: THIAMINE HCL 100 MG TABLET (FP) PO SCH (22:23)
[2017-12-29] MEDS: chlordiazePOXIDE HCL 25 MG CAPSULE PO SCH ×3 (05:53→17:36)
[2017-12-29] MEDS: NICOTINE 14 MG/24 HOURS TOPICAL PATCH TD SCH (10:52)
[2017-12-29] MEDS: PRENATAL VITAMINS W/ FOLIC ACID TABLET (FP) PO SCH (10:52)
--- NOTE | 2017-12-29 11:26 | PN ---
S CIWA - CIWA Score Nausea/Vomitin-No Nausea/No Vomiting Muscle Tremors: 4-Moderate,w/Arms Extend Anxiety: 4-Mod. Anxious/Guarded Agitation: 3 Paroxysmal Sweats: 1-Minimal Palms Moist Orientation: 0-Oriented Tacttile Disturbances: 0-None Auditory Disturbances: 0-None Visual Disturbances: 0-None Headache: 0-None Present CIWA-Ar Total Score: 12 BHS Progress Note (SOAP) Subjective: SLIGHT ANXIETY,FATIGUE. DETOX PROCEEDING WELL. Objective: 12/29/17 11:26 Vital Signs 12/29/17 12/29/17 12/29/17 03:30 06:38 07:44 Temperature 97.5 F L 97.1 F L Pulse Rate 65 49 L Respiratory 18 18 18 Rate Blood Pressure 152/92 113/64 Laboratory Tests 12/28/17 12/28/17 12/28/17 00:46 07:00 07:00 WBC 2.4 L RBC 3.78 L Hgb 11.5 L Hct 33.8 L MCV 89.3 MCH 30.5 MCHC 34.1 RDW 14.0 Plt Count 129 L MPV 9.6 Sodium 138 Potassium 3.9 Chloride 102 Carbon Dioxide 25 Anion Gap 11 BUN 10 Creatinine 0.6 L Creat Clearance w eGFR > 60 POC Glucometer 106 Random Glucose 73 L Calcium 8.4 L Total Bilirubin 0.9 AST 67 H D ALT 46 D Alkaline Phosphatase 80 D Total Protein 6.8 Albumin 3.3 L Urine Color Urine Appearance Urine pH Ur Specific [place] Urine Protein Urine Glucose (UA) Urine Ketones Urine Blood Urine Nitrite Urine Bilirubin Urine Urobilinogen Ur Leukocyte Esterase RPR Titer 12/28/17 12/28/17 12/28/17 07:00 07:00 16:16 WBC RBC Hgb Hct MCV MCH MCHC RDW Plt Count MPV Sodium Potassium Chloride Carbon Dioxide Anion Gap BUN Creatinine Creat Clearance w eGFR POC Glucometer 134 Random Glucose Calcium Total Bilirubin AST ALT Alkaline Phosphatase Total Protein Albumin Urine Color Yellow Urine Appearance Slcloudy Urine pH 5.0 Ur Specific [place] 1.015 Urine Protein Negative Urine Glucose (UA) Negative Urine Ketones Negative Urine Blood Negative Urine Nitrite Negative Urine Bilirubin Negative Urine Urobilinogen Negative Ur Leukocyte Esterase Negative RPR Titer Nonreactive Assessment: 12/29/17 11:26 WITHDRAWAL SX Plan: CONTINUE DETOX
--- NOTE | 2017-12-29 14:27 | EKG ---
Test Reason : Blood Pressure : / mmHG Vent. Rate : 063 BPM Atrial Rate : 063 BPM P-R Int : 182 ms QRS Dur : 100 ms QT Int : 462 ms P-R-T Axes : 069 066 069 degrees QTc Int : 472 ms NORMAL SINUS RHYTHM WITH SINUS ARRHYTHMIA POSSIBLE LEFT ATRIAL ENLARGEMENT BORDERLINE ECG WHEN COMPARED WITH ECG OF 27-DEC-2017 23:47, SINUS RHYTHM HAS REPLACED ATRIAL FIBRILLATION Confirmed by GEORGES ALSTON, KRYSTIAN ([id number]) on 12/29/2017 2:27:32 PM Referred By: Confirmed By:KRYSTIAN SU MD
--- NOTE | 2017-12-29 14:27 | EKG ---
Test Reason : Blood Pressure : / mmHG Vent. Rate : 077 BPM Atrial Rate : 082 BPM P-R Int : 000 ms QRS Dur : 110 ms QT Int : 440 ms P-R-T Axes : 000 077 068 degrees QTc Int : 497 ms POOR DATA QUALITY, INTERPRETATION MAY BE ADVERSELY AFFECTED SINUS RHYTHM PROLONGED QT ABNORMAL ECG WHEN COMPARED WITH ECG OF 27-DEC-2017 23:46, NO SIGNIFICANT CHANGE WAS FOUND Confirmed by GEORGES ALSTON, KRYSTIAN ([id number]) on 12/29/2017 2:27:02 PM Referred By: Confirmed By:KRYSTIAN SU MD
[2017-12-29] MEDS: ACETAMINOPHEN 325 MG TABLET (FP) PO PRN (17:36)
[2017-12-29] MEDS: THIAMINE HCL 100 MG TABLET (FP) PO SCH (22:31)
[2017-12-29] MEDS: chlordiazePOXIDE 5 MG CAPSULE PO SCH (22:31)
[2017-12-29] MEDS: IBUPROFEN 400 MG TABLET (FP) PO PRN (22:32)
[2017-12-30] MEDS: chlordiazePOXIDE 5 MG CAPSULE PO SCH ×3 (05:54→17:36)
[2017-12-30] MEDS: IBUPROFEN 400 MG TABLET (FP) PO PRN ×2 (05:55→13:48)
[2017-12-30] MEDS: PRENATAL VITAMINS W/ FOLIC ACID TABLET (FP) PO SCH (10:30)
[2017-12-30] MEDS: NICOTINE 14 MG/24 HOURS TOPICAL PATCH TD SCH (10:30)
[2017-12-30] MEDS: ACETAMINOPHEN 325 MG TABLET (FP) PO PRN ×2 (10:31→22:27)
--- NOTE | 2017-12-30 12:17 | PN ---
[facility] Progress Note (SOAP) Subjective: PT REPORTS DECREASED WITHDRAWAL SX. DETOX PROCEEDING WELL PER PROTOCOL. Objective: 12/30/17 12:16 Vital Signs 12/30/17 12/30/17 06:22 09:22 Temperature 97.5 F L 96.3 F L Pulse Rate 65 62 Respiratory 18 19 Rate Blood Pressure 137/76 128/75 Laboratory Tests 12/28/17 12/28/17 12/28/17 00:46 07:00 07:00 WBC 2.4 L RBC 3.78 L Hgb 11.5 L Hct 33.8 L MCV 89.3 MCH 30.5 MCHC 34.1 RDW 14.0 Plt Count 129 L MPV 9.6 Sodium 138 Potassium 3.9 Chloride 102 Carbon Dioxide 25 Anion Gap 11 BUN 10 Creatinine 0.6 L Creat Clearance w eGFR > 60 POC Glucometer 106 Random Glucose 73 L Calcium 8.4 L Total Bilirubin 0.9 AST 67 H D ALT 46 D Alkaline Phosphatase 80 D Total Protein 6.8 Albumin 3.3 L Urine Color Urine Appearance Urine pH Ur Specific [place] Urine Protein Urine Glucose (UA) Urine Ketones Urine Blood Urine Nitrite Urine Bilirubin Urine Urobilinogen Ur Leukocyte Esterase RPR Titer 12/28/17 12/28/17 12/28/17 07:00 07:00 16:16 WBC RBC Hgb Hct MCV MCH MCHC RDW Plt Count MPV Sodium Potassium Chloride Carbon Dioxide Anion Gap BUN Creatinine Creat Clearance w eGFR POC Glucometer 134 Random Glucose Calcium Total Bilirubin AST ALT Alkaline Phosphatase Total Protein Albumin Urine Color Yellow Urine Appearance Slcloudy Urine pH 5.0 Ur Specific [place] 1.015 Urine Protein Negative Urine Glucose (UA) Negative Urine Ketones Negative Urine Blood Negative Urine Nitrite Negative Urine Bilirubin Negative Urine Urobilinogen Negative Ur Leukocyte Esterase Negative RPR Titer Nonreactive Assessment: 12/30/17 12:17 WITHDRAWAL SX Plan: CONTINUE DETOX
[2017-12-30] MEDS: METHYL SALICYLATE/MENTHOL OINT 30 GM TUBE TP SCH ×2 (13:47→23:18)
[2017-12-30] MEDS: ZOLPIDEM TARTRATE 5 MG TABLET PO PRN (22:26)
[2017-12-30] MEDS: chlordiazePOXIDE HCL 10 MG CAPSULE PO SCH (22:26)
[2017-12-30] MEDS: THIAMINE HCL 100 MG TABLET (FP) PO SCH (22:26)
[2017-12-31] MEDS: chlordiazePOXIDE HCL 10 MG CAPSULE PO SCH (05:58)
[2017-12-31 06:51] VITALS: BP 121/64; PULSE 76; TEMP 97
--- NOTE | 2017-12-31 17:51 | PN ---
[facility] Progress Note (SOAP) Subjective: HANDICRAFT OR H[employer]BY SH[employer] MANAGER unable to do pre-discharge assessment of patient because patient left detox unit early before time of arrival of HANDICRAFT OR HOBBY SHOP MANAGER on unit. Objective: 12/31/17 17:50 Vital Signs Temperature 97 F L 12/31/17 06:50 Pulse Rate 76 12/31/17 06:50 Respiratory Rate 18 12/31/17 06:50 Blood Pressure 121/64 12/31/17 06:50 O2 Sat by Pulse Oximetry (%) Laboratory Tests 12/28/17 12/28/17 12/28/17 00:46 07:00 07:00 WBC 2.4 L RBC 3.78 L Hgb 11.5 L Hct 33.8 L MCV 89.3 MCH 30.5 MCHC 34.1 RDW 14.0 Plt Count 129 L MPV 9.6 Sodium 138 Potassium 3.9 Chloride 102 Carbon Dioxide 25 Anion Gap 11 BUN 10 Creatinine 0.6 L Creat Clearance w eGFR > 60 POC Glucometer 106 Random Glucose 73 L Calcium 8.4 L Total Bilirubin 0.9 AST 67 H D ALT 46 D Alkaline Phosphatase 80 D Total Protein 6.8 Albumin 3.3 L Urine Color Urine Appearance Urine pH Ur Specific [place] Urine Protein Urine Glucose (UA) Urine Ketones Urine Blood Urine Nitrite Urine Bilirubin Urine Urobilinogen Ur Leukocyte Esterase RPR Titer 12/28/17 12/28/17 12/28/17 07:00 07:00 16:16 WBC RBC Hgb Hct MCV MCH MCHC RDW Plt Count MPV Sodium Potassium Chloride Carbon Dioxide Anion Gap BUN Creatinine Creat Clearance w eGFR POC Glucometer 134 Random Glucose Calcium Total Bilirubin AST ALT Alkaline Phosphatase Total Protein Albumin Urine Color Yellow Urine Appearance Slcloudy Urine pH 5.0 Ur Specific [place] 1.015 Urine Protein Negative Urine Glucose (UA) Negative Urine Ketones Negative Urine Blood Negative Urine Nitrite Negative Urine Bilirubin Negative Urine Urobilinogen Negative Ur Leukocyte Esterase Negative RPR Titer Nonreactive LABS NOTED. Assessment: 12/31/17 17:50 COMPLETION OF DETOX REGIMEN. Plan: PATIENT SCHEDULED FOR DISCHARGE FROM DETOX UNIT TODAY.
--- NOTE | 2017-12-31 17:54 | DS ---
[facility] Detox Discharge Summary Admission Date: 12/27/17 Discharge Date: 12/31/17 - History Present History: Alcohol Dependence Additional Comments: PATIENT TO RETURN HOME FOR A FEW DAYS, THEN WILL CONTACT [facility] ADMISSION DEPT. TO APPLY FOR ADMISSION FOR REHAB. PATIENT WAS DISCHARGED FROM DETOX UNIT IN STABLE MEDICAL CONDITION. Pertinent Past History: History of Left Knee Pain, Nicotine Dependence, Hep C, Weight Decreased, History of Positive PPD (Treated), Anxiety. - Physical Exam Results Vital Signs: Vital Signs Temperature 97 F L 12/31/17 06:50 Pulse Rate 76 12/31/17 06:50 Respiratory Rate 18 12/31/17 06:50 Blood Pressure 121/64 12/31/17 06:50 O2 Sat by Pulse Oximetry (%) Pertinent Admission Physical Exam Findings: WITHDRAWAL SYMPTOMS. Laboratory Tests 12/28/17 12/28/17 12/28/17 00:46 07:00 07:00 WBC 2.4 L RBC 3.78 L Hgb 11.5 L Hct 33.8 L MCV 89.3 MCH 30.5 MCHC 34.1 RDW 14.0 Plt Count 129 L MPV 9.6 Sodium 138 Potassium 3.9 Chloride 102 Carbon Dioxide 25 Anion Gap 11 BUN 10 Creatinine 0.6 L Creat Clearance w eGFR > 60 POC Glucometer 106 Random Glucose 73 L Calcium 8.4 L Total Bilirubin 0.9 AST 67 H D ALT 46 D Alkaline Phosphatase 80 D Total Protein 6.8 Albumin 3.3 L Urine Color Urine Appearance Urine pH Ur Specific [place] Urine Protein Urine Glucose (UA) Urine Ketones Urine Blood Urine Nitrite Urine Bilirubin Urine Urobilinogen Ur Leukocyte Esterase RPR Titer 12/28/17 12/28/17 12/28/17 07:00 07:00 16:16 WBC RBC Hgb Hct MCV MCH MCHC RDW Plt Count MPV Sodium Potassium Chloride Carbon Dioxide Anion Gap BUN Creatinine Creat Clearance w eGFR POC Glucometer 134 Random Glucose Calcium Total Bilirubin AST ALT Alkaline Phosphatase Total Protein Albumin Urine Color Yellow Urine Appearance Slcloudy Urine pH 5.0 Ur Specific [place] 1.015 Urine Protein Negative Urine Glucose (UA) Negative Urine Ketones Negative Urine Blood Negative Urine Nitrite Negative Urine Bilirubin Negative Urine Urobilinogen Negative Ur Leukocyte Esterase Negative RPR Titer Nonreactive LABS NOTED. - Treatment Hospital Course: Detox Protocol Followed, Detoxed Safely, Responded well, Discharged Condition Good Patient has Accepted a Rehab Referral to: [facility] ([facility] . - Medication Discharge Medications: Ambulatory Orders Olanzapine [Zyprexa -] 20 mg PO HS #30 tablet 12/01/16 Doxepin HCl [Sinequan -] 25 mg PO HS 12/07/17 Doxepin HCl [Sinequan -] 25 mg PO HS #30 capsule 12/09/17 Olanzapine [Zyprexa -] 5 mg PO HS #30 tablet 12/09/17 - Diagnosis (1) Alcohol dependence with uncomplicated withdrawal Status: Acute (2) Nicotine dependence Status: Acute Qualifiers: Nicotine product type: cigarettes Substance use status: in withdrawal Qualified Code(s): F17.213 - Nicotine dependence, cigarettes, with withdrawal (3) Substance induced mood disorder Status: Acute (4) Substance-induced sleep disorder Status: Acute (5) Weight decreased Status: Acute (6) Knee pain, left Status: Chronic Qualifiers: Chronicity: chronic Qualified Code(s): M25.562 - Pain in left knee; G89.29 - Other chronic pain (7) Non compliance w medication regimen Status: Chronic (8) Positive PPD, treated Status: Chronic (9) Psychiatric disorder Status: Suspected - AMA Did Patient Leave Against Medical Advice: No
== END 2017-12-31 07:10 | disposition home or self-care (01) | DRG 775 ==
LOC: YASAS 18:56 → Y3N 22:21
PROVIDERS: ADMIT Surgery; ATTEND Surgery
PROC: HZ2ZZZZ Detoxification Services for Substance Abuse Treatment (ICD-10-PCS; principal; 2017-12-27)
DX: F10.230 Alcohol dependence with withdrawal, uncomplicated (principal); F17.213 Nicotine dependence, cigarettes, with withdrawal; F19.24 Other psychoactive substance dependence with psychoactive substance-induced mood disorder; F19.282 Other psychoactive substance dependence with psychoactive substance-induced sleep disorder; F32.9 Major depressive disorder, single episode, unspecified; F20.9 Schizophrenia, unspecified; M25.561 Pain in right knee; G89.29 Other chronic pain; R76.11 Nonspecific reaction to tuberculin skin test without active tuberculosis; R63.4 Abnormal weight loss; Z68.21 Body mass index [BMI] 21.0-21.9, adult; Z91.14 Patient's other noncompliance with medication regimen
CPT/HCPCS: 36415; 80053; 81003; 82962; 85027; 86593; 93005; 93010

== ENCOUNTER 2018-02-24 20:06 | Emergency (ER) | payer OTHER ==
[2018-02-24 20:18] VITALS: BMI 24.2
--- NOTE | 2018-02-24 20:18 | PDOC ---
Rapid Medical Evaluation Medical Evaluation: Allergies Allergy/AdvReac Type Severity Reaction Status Date / Time No Known Allergies Allergy Verified 12/28/17 00:55 02/24/18 20:10 I have performed a brief in-person evaluation of this patient. The patient presents with a chief complaint of: Here for medical clearance for inpt detox at [facility] [place]. H/o ETOH abuse w/ many inpt detox admission, last time , smoker, schizophrenia, depression, chronic knee pain Pertinent physical exam findings: Appears intoxicated at triage but alert and coherent, able to give hx I have ordered the following:labs The patient will proceed to the ED for further evaluation. Discharge Disposition - Diagnosis Alcohol abuse - Referrals - Patient Instructions - Post Discharge Activity
[2018-02-24 21:08] LABS: BASO % 0.1 % (0-2.0); EOS % 1.1 % (0-4.5); HEMATOCRIT 36.6 % (35.4-49); HEMOGLOBIN 12.4 GM/dL (11.7-16.9); LYMPH % 40.3 % (8-40); MCH 30.7 pg (25.7-33.7); MCHC 33.9 g/dl (32.0-35.9); MEAN CELL VOLUME 90.7 fl (80-96); MEAN PLT VOLUME 8.1 fl (7.5-11.1); NEUT % 45.5 % (42.8-82.8); PLATELET COUNT 145 K/MM3 (134-434); RDW 13.6 % (11.9-15.9); WHITE BLOOD COUNT 3.6 K/mm3 (4.0-10.0)
[2018-02-24 21:30] LABS: ALBUMIN 3.9 g/dl (3.4-5.0); ALK PHOS 86 U/L (45-117); ANION GAP 14 MMOL/L (8-16); BLOOD UREA NITROGEN 9 mg/dL (7-18); CALCIUM 8.9 mg/dL (8.5-10.1); CHLORIDE 100 mmol/L (98-107); CO2 22 mmol/L (21-32); CREATININE 0.5 mg/dL (0.55-1.3); GLUCOSE,RANDOM 85 mg/dL (74-106); LIPASE 97 U/L (73-393); POTASSIUM 3.9 mmol/L (3.5-5.1); SGOT/AST 58 U/L (15-37); SGPT/ALT 38 U/L (13-61); SODIUM 136 mmol/L (136-145); TOT PROT 8.1 g/dl (6.4-8.2)
[2018-02-24 21:59] LABS: PLATELET ESTIMATE ADEQUATE
[2018-02-24 22:00] LABS: RBC 4.04 M/mm3 (4.00-5.60)
[2018-02-25 00:36] VITALS: TEMP 98.6
--- NOTE | 2018-02-25 01:55 | PDOC ---
History of Present Illness - General Chief Complaint: Alcohol intoxication Stated Complaint: ALCOHOL INTOXICATION Time Seen by Provider: 02/24/18 21:02 History Source: Patient Exam Limitations: No Limitations - History of Present Illness Initial Comments: 02/25/18 02:59 57-year-old male presents to the emergency department after having a couple of drinks this evening. Patient denies LOC, headache, dizziness, lightheadedness, nausea/vomiting, fever/chills, facial pains, neck pains, back pains, chest pain , shortness of breath, abdominal pains, flank pains, urinary symptoms, bladder or bowel dysfunction, Luis numbness or tingling sensation. Patient states he has no complaints. Past History - Past Medical History Allergies/Adverse Reactions: Allergies Allergy/AdvReac Type Severity Reaction Status Date / Time No Known Allergies Allergy Verified 02/24/18 20:12 Home Medications: Ambulatory Orders NK [No Known Home Medication] 02/24/18 Anemia: No Asthma: No Cancer: No Cardiac Disorders: No CVA: No COPD: No CHF: No Dementia: No Diabetes: Yes GI Disorders: No Disorders: No HTN: No Hypercholesterolemia: No Kidney Stones: No Liver Disease: No Psychiatric Problems: Yes (Depression, schizophrenia) Seizures: No Thyroid Disease: No - Surgical History Abdominal Surgery: No Appendectomy: No Cardiac Surgery: No Cholecystectomy: No Lung Surgery: No Neurologic Surgery: No Orthopedic Surgery: Yes (LT KNEE SX) - Reproductive History Testicular Surgery: No - Immunization History Immunization Up to Date: Yes - Suicide/Smoking/Psychosocial Hx Smoking Status: Yes Smoking History: Current every day smoker Have you smoked in the past 12 months: Yes Number of Cigarettes Smoked Daily: 10 Cigars Per Day: 10 Information on smoking cessation initiated: No 'Breaking Loose' booklet given: 12/27/17 Hx Alcohol Use: No Drug/Substance Use Hx: No Substance Use Type: Alcohol Hx Substance Use Treatment: Yes ([facility] 12/06/17 -12/10/17) Review of Systems - Review of Systems Able to Perform ROS?: Yes Comments:: 02/25/18 02:59 CONSTITUTIONAL: Absent: fever, chills, diaphoresis, generalized weakness, malaise, loss of appetite HEENT: Absent: rhinorrhea, nasal congestion, throat pain, throat swelling, difficulty swallowing, mouth swelling, ear pain, eye pain, visual Changes CARDIOVASCULAR: Absent: chest pain, loss of consciousness, palpitations, irregular heart rate, peripheral edema RESPIRATORY: Absent: cough, shortness of breath, dyspnea with exertion, orthopnea, wheezing, stridor, hemoptysis GASTROINTESTINAL: Absent: abdominal pain, abdominal distension, nausea, vomiting, diarrhea, constipation, melena, hematochezia GENITOURINARY: Absent: dysuria, frequency, urgency, hesitancy, hematuria, flank pain, genital pain MUSCULOSKELETAL: Absent: myalgia, arthralgia, joint swelling SKIN: Absent: rash, itching, pallor HEMATOLOGIC/IMMUNOLOGIC: Absent: easy bleeding, easy bruising, lymphadenopathy, frequent infections ENDOCRINE: Absent: unexplained weight gain, unexplained weight loss, heat intolerance, cold intolerance NEUROLOGIC: Absent: headache, focal weakness or paresthesias, dizziness, unsteady gait, seizure, mental status changes, bladder or bowel incontinence PSYCHIATRIC: Absent: anxiety, depression, suicidal or homicidal ideation, hallucinations. Is the patient limited Kiswahili proficient: No *Physical Exam - Vital Signs Last Vital Signs Temp Pulse Resp BP Pulse Ox 98.6 F 80 18 110/62 96 02/25/18 00:35 02/25/18 00:35 02/25/18 00:35 02/25/18 00:35 02/25/18 00:35 - Physical Exam Comments: 02/25/18 03:00 GENERAL: Well developed, well nourished. Awake and alert. No acute distress. HEENT: Normocephalic, atraumatic. PERRLA, EOMI. No conjunctival pallor. Sclera are non- icteric. Moist mucous membranes. Oropharynx is clear. NECK: Supple. Full ROM. No JVD. Carotid pulses 2+ and symmetric, without bruits. No thyromegaly. No lymphadenopathy. CARDIOVASCULAR: Regular rate and rhythm. No murmurs, rubs, or gallops. Distal pulses are 2+ and symmetric. PULMONARY: No evidence of respiratory distress. Lungs clear to auscultation bilaterally. No wheezing, rales or rhonchi. ABDOMINAL: Soft. Non-tender. Non-distended. No rebound or guarding. No organomegaly. Normoactive bowel sounds. MUSCULOSKELETAL Normal range of motion at all joints. No bony deformities or tenderness. No CVA tenderness. EXTREMITIES: No cyanosis. No clubbing. No edema. No calf tenderness. SKIN: Warm and dry. Normal capillary refill. No rashes. No jaundice. NEUROLOGICAL: Alert, awake, appropriate. Cranial nerves 2-12 intact. No deficits to light touch and temperature in face, upper extremities and lower extremities. No motor deficits in the in face, upper extremities and lower extremities. Normoreflexic in the upper and lower extremities. Normal speech. Toes are down- going bilaterally. Gait is normal without ataxia. PSYCHIATRIC: Cooperative. Good eye contact. Appropriate mood and affect. ED Treatment Course - LABORATORY CBC & Chemistry Diagram: 02/24/18 20:42 02/24/18 20:42 - ADDITIONAL ORDERS Additional order review: Laboratory Results 02/24/18 02/24/18 20:42 20:42 Sodium 136 Potassium 3.9 Chloride 100 Carbon Dioxide 22 Anion Gap 14 BUN 9 Creatinine 0.5 L Creat Clearance w eGFR > 60 Random Glucose 85 Calcium 8.9 Total Bilirubin 1.0 AST 58 H ALT 38 Alkaline Phosphatase 86 Total Protein 8.1 Albumin 3.9 Lipase 97 Alcohol, Quantitative 357.0 H 02/24/18 20:42 RBC 4.04 MCV 90.7 MCHC 33.9 RDW 13.6 MPV 8.1 D Neutrophils % 45.5 Lymphocytes % 40.3 H Monocytes % 13.0 H Eosinophils % 1.1 Basophils % 0.1 *DC/Admit/Observation/Transfer Diagnosis at time of Disposition: Alcohol abuse - Discharge Dispostion Condition at time of disposition: Stable Decision to Admit order: No - Referrals Referrals: Blaise Arceo MD [Staff Physician] - - Patient Instructions Additional Instructions: Increase fluids Rest Follow with your doctor or the one listed on your discharge Avoid alcohol Return back to the ER for any concerns, chest pain, shortness of breath - Post Discharge Activity
[2018-02-25 06:52] VITALS: BP 123/80; PULSE 85
--- NOTE | 2018-02-26 21:46 | EKG ---
Test Reason : Blood Pressure : / mmHG Vent. Rate : 086 BPM Atrial Rate : 086 BPM P-R Int : 164 ms QRS Dur : 096 ms QT Int : 418 ms P-R-T Axes : 078 077 074 degrees QTc Int : 500 ms NORMAL SINUS RHYTHM POSSIBLE LEFT ATRIAL ENLARGEMENT PROLONGED QT ABNORMAL ECG WHEN COMPARED WITH ECG OF 28-DEC-2017 10:31, NO SIGNIFICANT CHANGE WAS FOUND Confirmed by DOMINGA FAY MD ([id number]) on 02/26/2018 9:46:25 PM Referred By: Confirmed By:DOMINGA FAY MD
== END 2018-02-25 07:08 | disposition home or self-care (01) ==
LOC: JER 20:06 → JERFT 20:06 → JER 02-25 07:08
DX: F10.10 Alcohol abuse, uncomplicated (principal); F32.9 Major depressive disorder, single episode, unspecified; F20.9 Schizophrenia, unspecified; E11.9 Type 2 diabetes mellitus without complications; F17.210 Nicotine dependence, cigarettes, uncomplicated
CPT/HCPCS: 36415; 71046-TC-FY; 80053; 80307; 83690; 85025; 93005; 93010; 99283-25

== ENCOUNTER 2018-02-26 20:30 | Inpatient (IN) | payer OTHER ==
[2018-02-26] MEDS ORDERED: MELATONIN 5 MG TABLETS PO PRN (22:00)
[2018-02-26 22:57] VITALS: BMI 20.9
--- NOTE | 2018-02-26 23:19 | HP ---
CIWA Score - CIWA Score Nausea/Vomitin Muscle Tremors: 4-Moderate,w/Arms Extend Anxiety: 4-Mod. Anxious/Guarded Agitation: 4-Moderately Restless Paroxysmal Sweats: No Perspiration Orientation: 1-Uncertain about Date Tacttile Disturbances: 0-None Auditory Disturbances: 0-None Visual Disturbances: 0-None Headache: 2-Mild CIWA-Ar Total Score: 18 Admission ROS S - HPI Chief Complaint: alcohol withdrawal symptoms Allergies/Adverse Reactions: Allergies Allergy/AdvReac Type Severity Reaction Status Date / Time No Known Allergies Allergy Verified 02/26/18 22:58 History of Present Illness: 57 years old male with a long history of alcohol dependence is seeking admission to detox. Patient is has been admitted to [facility] multiple times and reports insignificant period of sobriety. He reports medical history of seizures and depression and denies suicidal ideation at this time Exam Limitations: No Limitations - Ebola screening Have you traveled outside of the country in the last 21 days: No (N) Have you had contact with anyone from an Ebola affected area: No Have you been sick,other than usual withdrawal symptoms: No Do you have a fever: No - Review of Systems Constitutional: Chills, Loss of Appetite, Malaise, Night Sweats, Changes in sleep EENT: reports: No Symptoms Reported Respiratory: reports: No Symptoms reported Cardiac: reports: No Symptoms Reported GI: reports: Diarrhea, Nausea, Poor Appetite, Poor Fluid Intake, Vomiting, Abdominal cramping : reports: No Symptoms Reported Musculoskeletal: reports: Back Pain, Muscle Pain Neuro: reports: Headache, Tingling, Tremors Endocrine: reports: No Symptoms Reported Hematology: reports: No Symptoms Reported Psychiatric: reports: Anxious Other Systems: Reviewed and Negative Patient History - Patient Medical History Hx Anemia: No Hx Asthma: No Hx Chronic Obstructive Pulmonary Disease (COPD): No Hx Cancer: No Hx Cardiac Disorders: No Hx Congestive Heart Failure: No Hx Hypertension: No Hx Hypercholesterolemia: No Hx Pacemaker: No HX Cerebrovascular Accident: No Hx Seizures: Yes (Not on medication) Hx Dementia: No Hx Diabetes: No Hx Gastrointestinal Disorders: No Hx Liver Disease: No Hx Genitourinary Disorders: No Hx Sexually Transmitted Disorders: No Hx Renal Disease (ESRD): No Hx Thyroid Disease: No Hx Human Immunodeficiency Virus (HIV): (Negative 2017) Hx Hepatitis C: No Hx Depression: Yes (Not on medication) Hx Suicide Attempt: No (Denies suicidal tdeation at this time) Hx Bipolar Disorder: No Hx Schizophrenia: No - Patient Surgical History Past Surgical History: No Hx Neurologic Surgery: No Hx Cataract Extraction: No Hx Cardiac Surgery: No Hx Lung Surgery: No Hx Breast Surgery: No Hx Breast Biopsy: No Hx Abdominal Surgery: No Hx Appendectomy: No Hx Cholecystectomy: No Hx Genitourinary Surgery: No Hx Section: No Hx Orthopedic Surgery: Yes (LT KNEE SX) Anesthesia Reaction: No - PPD History Previous Implant?: Yes Documented Results: Positive w/proof Results: 02/25/17 NEG CX PPD to be Administered?: No - Reproductive History Patient is a Female of Child Bearing Age (11 -55 yrs old): No (male) Patient : No - Smoking Cessation Smoking history: Current every day smoker Have you smoked in the past 12 months: Yes Aproximately how many cigarettes per day: 10 Cigars Per Day: 10 Hx Chewing Tobacco Use: No Initiated information on smoking cessation: Yes 'Breaking Loose' booklet given: 02/26/18 - Substance & Tx. History Hx Alcohol Use: Yes Hx Substance Use: No Substance Use Type: Alcohol Hx Substance Use Treatment: No - Substances Abused Alcohol Route: Oral Frequency: Daily Amount used: liquor- 2 pint, beer 1 case Age of first use: 11 Date of Last Use: 02/26/18 Family Disease History - Family Disease History Family Disease History: Other: Brother (alcohol,dsa) Admission Physical Exam [facility] - Vital Signs Vital Signs: Vital Signs - 24 hr 02/26/18 22:56 Temperature 98.2 F Pulse Rate 102 H Respiratory 20 Rate Blood Pressure 142/100 - Physical General Appearance: Yes: Moderate Distress HEENTM: Yes: EOMI, Normal ENT Inspection, Normocephalic, Normal Voice, MISSY Respiratory: Yes: Lungs Clear, Normal Breath Sounds, No Respiratory Distress Neck: Yes: Supple Breast: Yes: Breast Exam Deferred Cardiology: Yes: Regular Rhythm, Regular Rate Abdominal: Yes: Normal Bowel Sounds, Soft Genitourinary: Yes: Within Normal Limits Back: Yes: Normal Inspection Musculoskeletal: Yes: Back pain, Muscle Pain Extremities: Yes: Tremors 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 - Detox or Rehab [facility] Level of Care: Medically Managed Detox Regimen/Protocol: Librium [facility] Breath Alcohol Content Breath Alcohol Content: 0.342 Urine Drug Screen - Results Drug Screen Negative: Yes
[2018-02-26] MEDS ORDERED: LOPERAMIDE HCL 2 MG CAPSULE PO PRN (23:27)
[2018-02-26] MEDS ORDERED: NICOTINE POLACRILEX 2 MG GUM BC PRN (23:27)
[2018-02-26] MEDS ORDERED: guaiFENesin/D-METHORPHAN HB 10 ML UNIT-DOSE CUPS PO PRN (23:27)
[2018-02-26] MEDS ORDERED: P-EPHED 60MG/TRIPROLIDI 2.5MG TABLET PO PRN (23:27)
[2018-02-26] MEDS ORDERED: MAG HYDROX/AL HYDROX/SIMETH 30 ML UNIT-DOSE CUP PO PRN (23:27)
[2018-02-26] MEDS ORDERED: MAGNESIUM CITRATE 300 ML BOTTLE PO PRN (23:27)
[2018-02-26] MEDS ORDERED: chlordiazePOXIDE HCL 25 MG CAPSULE PO PRN (23:27)
[2018-02-26] MEDS ORDERED: MENTHOL/PHENOL 1 EACH UD MM PRN (23:27)
[2018-02-26] MEDS ORDERED: MAGNESIUM HYDROX 2400MG/30ML ORAL SUSPENSION 30 ML CUP PO PRN (23:27)
[2018-02-27] MEDS: chlordiazePOXIDE HCL 25 MG CAPSULE PO SCH ×6 (00:21→22:00)
[2018-02-27] MEDS ORDERED: chlordiazePOXIDE HCL 25 MG CAPSULE PO SCH (05:00)
--- NOTE | 2018-02-27 10:01 | EKG ---
Test Reason : Blood Pressure : / mmHG Vent. Rate : 086 BPM Atrial Rate : 086 BPM P-R Int : 160 ms QRS Dur : 098 ms QT Int : 404 ms P-R-T Axes : 072 081 073 degrees QTc Int : 483 ms NORMAL SINUS RHYTHM POSSIBLE LEFT ATRIAL ENLARGEMENT PROLONGED QT ABNORMAL ECG WHEN COMPARED WITH ECG OF 25-FEB-2018 00:33, NO SIGNIFICANT CHANGE WAS FOUND Confirmed by XENIA MUNGUIA MD ([id number]) on 02/27/2018 10:01:28 AM Referred By: Confirmed By:XENIA MUNGUIA MD
[2018-02-27] MEDS: PRENATAL VITAMINS W/ FOLIC ACID TABLET (FP) PO SCH (10:15)
[2018-02-27] MEDS: NICOTINE 14 MG/24 HOURS TOPICAL PATCH TD SCH (10:16)
[2018-02-27 10:38] LABS: HEMATOCRIT 35.8 % (35.4-49); HEMOGLOBIN 11.7 GM/dL (11.7-16.9); MCH 30.1 pg (25.7-33.7); MCHC 32.8 g/dl (32.0-35.9); MEAN CELL VOLUME 91.9 fl (80-96); MEAN PLT VOLUME 8.6 fl (7.5-11.1); PLATELET COUNT 135 K/MM3 (134-434); RDW 13.8 % (11.9-15.9)
[2018-02-27 11:11] LABS: CHLORIDE 101 mmol/L (98-107); POTASSIUM 3.9 mmol/L (3.5-5.1); SODIUM 141 mmol/L (136-145)
[2018-02-27 11:57] LABS: ALBUMIN 3.9 g/dl (3.4-5.0); ALK PHOS 80 U/L (45-117); ANION GAP 16 MMOL/L (8-16); BILIRUBIN,TOTAL 0.7 mg/dL (0.2-1.0); BLOOD UREA NITROGEN 8 mg/dL (7-18); CALCIUM 8.6 mg/dL (8.5-10.1); CO2 24 mmol/L (21-32); CREATININE 0.6 mg/dL (0.55-1.3); GLUCOSE,RANDOM 73 mg/dL (74-106); SGOT/AST 51 U/L (15-37); SGPT/ALT 34 U/L (13-61); TOT PROT 7.6 g/dl (6.4-8.2)
--- NOTE | 2018-02-27 13:13 | CONSULT ---
[facility] Psychiatric Consult - Data Date of interview: 02/27/18 Admission source: [facility] Identifying data: This is one of multiple admissions to [facility] for this 57 y/ o AA male self-referred for detoxification treatment (alcohol dependence) .Admitted to [address] [place] [address].Patient is single,a father of one,domiciled (lives with sister),unemployed and supported on SSI benefits. Substance Abuse History: Discussed with the patient in this interview.Mr Myles admits to an extensive history of alcohol abuse (consumes 1-2 pints of liquor + one 6-pack of beer on a daily basis).Details incurrent [facility] report : Smoking history: Current every day smoker. Have you smoked in the past 12 months: Yes. Aproximately how many cigarettes per day: 10. Cigars Per Day: 10. Hx Chewing Tobacco Use: No. Initiated information on smoking cessation: Yes. ' Breaking Loose' booklet given: 02/26/18. - Substance & Tx. History. Hx Alcohol Use: Yes. Hx Substance Use: No. Substance Use Type: Alcohol. Hx Substance Use Treatment: No. - Substances Abused. Alcohol. Route: Oral. Frequency: Daily. Amount used: liquor- 2 pint, beer 1 case. Age of first use: 11. Date of Last Use: 02/26/18 Medical History: Arthritis,gout, and a history of orthosurgery (torn ligament in left knee). Psychiatric History: History of psychiatric hospitalizations at the [facility] and during incarceration at the [facility] in [facility] about 15 years ago.Patient indicates that he is diagnosed with Bipolar Disorder.Mr Myles used to see a psychiatrist at the [facility] outpatient program in [facility].Dropped out of psychiatric aftercare for several months as per self-report.Usually prescribed zyprexa 5 mg/ daily (rarely taken once discharged from [facility]).Patient denies history of suicide attempts. Physical/Sexual Abuse/Trauma History: Patient denies. Additional Comment: Drug Screen is negative. Mental Status Exam - Mental Status Exam Alert and Oriented to: Time, Place, Person Cognitive Function: Good Patient Appearance: Unkempt, Disheveled (short stature) Mood: Nervous, Withdrawn Affect: Mood Congruent Patient Behavior: Fatigued, Cooperative Speech Pattern: Clear, Appropriate Voice Loudness: Normal Thought Process: Intact, Goal Oriented Thought Disorder: Not Present Hallucinations: Denies Suicidal Ideation: Denies Homicidal Ideation: Denies Insight/Judgement: Poor Sleep: Poorly, Difficulty falling asleep Appetite: Fair Muscle strength/Tone: Normal Gait/Station: Normal Psychiatric Findings - Problem List ([place] 1, 2,3) (1) Alcohol dependence with uncomplicated withdrawal Current Visit: Yes Status: Acute (2) Nicotine dependence Current Visit: Yes Status: Acute Qualifiers: Nicotine product type: cigarettes Substance use status: in withdrawal Qualified Code(s): F17.213 - Nicotine dependence, cigarettes, with withdrawal (3) Substance induced mood disorder Current Visit: Yes Status: Acute (4) Schizoaffective disorder Current Visit: Yes Status: Chronic Comment: Non-adherent to medications. (5) Insomnia Current Visit: Yes Status: Acute Qualifiers: Insomnia type: unspecified Qualified Code(s): G47.00 - Insomnia, unspecified - Initial Treatment Plan Initial Treatment Plan: Psychoeducation.Sleep hygiene.Detoxification in progress.Medications, as requested by the patient : olanzapine 5 mg po hs + ambien 5 mg po hs.Side effects/benefits of both drugs are discussed with the patient.Made aware of potential for metabolic syndrome and parasomnias.Verbal consent : received from patient.Observation.
[2018-02-27 17:29] LABS: URINE APPEARANCE CLEAR; URINE BILIRUBIN NEGATIVE (<2.0 mg/dL); URINE COLOR YELLOW; URINE GLUCOSE (UA) NEGATIVE (NEGATIVE); URINE KETONE TRACE (NEGATIVE); URINE LEUK ESTERASE NEGATIVE (NEGATIVE); URINE NITRITE NEGATIVE (NEGATIVE); URINE PROTEIN NEGATIVE (NEGATIVE); URINE UROBILINOGEN 4.0 E.U/dl mg/dL (0.2-1.0)
--- NOTE | 2018-02-27 17:37 | PN ---
S CIWA - CIWA Score Nausea/Vomitin Muscle Tremors: 3 Anxiety: 3 Agitation: 2 Paroxysmal Sweats: 3 Orientation: 0-Oriented Tacttile Disturbances: 0-None Auditory Disturbances: 0-None Visual Disturbances: 0-None Headache: 0-None Present CIWA-Ar Total Score: 13 BHS Progress Note (SOAP) Subjective: shakes sweats Objective: 02/27/18 17:37 A & O x 3 In bed Vital Signs Temperature 97.1 F L 02/27/18 13:12 Pulse Rate 80 02/27/18 16:29 Respiratory Rate 18 02/27/18 16:29 Blood Pressure 143/91 02/27/18 13:12 O2 Sat by Pulse Oximetry (%) Assessment: 02/27/18 17:37 withdrawal sx Plan: continue detox
[2018-02-27] MEDS: ZOLPIDEM TARTRATE 5 MG TABLET PO PRN (22:00)
[2018-02-27] MEDS: THIAMINE HCL 100 MG TABLET (FP) PO SCH (22:00)
[2018-02-27] MEDS: OLANZapine 5 MG TABLET PO SCH (22:00)
[2018-02-28] MEDS ORDERED: chlordiazePOXIDE 5 MG CAPSULE PO SCH (05:00)
[2018-02-28] MEDS: chlordiazePOXIDE HCL 25 MG CAPSULE PO SCH ×4 (05:27→22:07)
[2018-02-28] MEDS: ACETAMINOPHEN 325 MG TABLET (FP) PO PRN ×2 (10:01→22:06)
--- NOTE | 2018-02-28 10:15 | PN ---
S CIWA - CIWA Score Nausea/Vomitin-No Nausea/No Vomiting Muscle Tremors: None Anxiety: 0-No Anxiety, at Ease Agitation: 0-Normal Activity Paroxysmal Sweats: No Perspiration Orientation: 0-Oriented Tacttile Disturbances: 0-None Auditory Disturbances: 0-None Visual Disturbances: 0-None Headache: 0-None Present CIWA-Ar Total Score: 0 BHS Progress Note (SOAP) Subjective: PATIENT TOLERATING DETOX WELL. NO COMPLAINTS OFFERED. Objective: 02/28/18 10:13 Laboratory Tests 02/27/18 02/27/18 02/27/18 08:00 08:00 08:00 WBC 2.0 L RBC 3.90 L Hgb 11.7 Hct 35.8 MCV 91.9 MCH 30.1 MCHC 32.8 RDW 13.8 Plt Count 135 MPV 8.6 Sodium 141 Potassium 3.9 Chloride 101 Carbon Dioxide 24 Anion Gap 16 BUN 8 Creatinine 0.6 Creat Clearance w eGFR > 60 POC Glucometer Random Glucose 73 L Calcium 8.6 Total Bilirubin 0.7 AST 51 H ALT 34 Alkaline Phosphatase 80 Total Protein 7.6 Albumin 3.9 Urine Color Urine Appearance Urine pH Ur Specific [place] Urine Protein Urine Glucose (UA) Urine Ketones Urine Blood Urine Nitrite Urine Bilirubin Urine Urobilinogen Ur Leukocyte Esterase RPR Titer Nonreactive 02/27/18 02/27/18 02/28/18 16:11 16:30 05:28 WBC RBC Hgb Hct MCV MCH MCHC RDW Plt Count MPV Sodium Potassium Chloride Carbon Dioxide Anion Gap BUN Creatinine Creat Clearance w eGFR POC Glucometer 127 121 Random Glucose Calcium Total Bilirubin AST ALT Alkaline Phosphatase Total Protein Albumin Urine Color Yellow Urine Appearance Clear Urine pH 6.0 Ur Specific [place] 1.016 Urine Protein Negative Urine Glucose (UA) Negative Urine Ketones Trace H Urine Blood Negative Urine Nitrite Negative Urine Bilirubin Negative Urine Urobilinogen 4.0 e.u/dl Ur Leukocyte Esterase Negative RPR Titer Vital Signs Temperature 96.5 F L 02/28/18 09:23 Pulse Rate 82 02/28/18 09:23 Respiratory Rate 18 02/28/18 09:23 Blood Pressure 114/79 02/28/18 09:23 O2 Sat by Pulse Oximetry (%) OBJ: SKIN WARM AND DRY CAR S1S2 RESP: CTA BL GI SOFT, BS + NT Assessment: 02/28/18 10:14 WITHDRAWAL SYNDROME Plan: CONTINUE DETOX PER PROTOCOL
[2018-02-28] MEDS: PRENATAL VITAMINS W/ FOLIC ACID TABLET (FP) PO SCH (10:26)
[2018-02-28] MEDS: NICOTINE 14 MG/24 HOURS TOPICAL PATCH TD SCH (10:26)
[2018-02-28] MEDS: IBUPROFEN 400 MG TABLET (FP) PO PRN (17:43)
[2018-02-28] MEDS: THIAMINE HCL 100 MG TABLET (FP) PO SCH (22:07)
[2018-02-28] MEDS: ZOLPIDEM TARTRATE 5 MG TABLET PO PRN (22:07)
[2018-02-28] MEDS: OLANZapine 5 MG TABLET PO SCH (22:07)
[2018-03-01] MEDS ORDERED: chlordiazePOXIDE HCL 10 MG CAPSULE PO SCH (05:00)
[2018-03-01] MEDS: chlordiazePOXIDE 5 MG CAPSULE PO SCH ×4 (06:01→22:11)
[2018-03-01] MEDS: IBUPROFEN 400 MG TABLET (FP) PO PRN ×2 (06:03→17:10)
--- NOTE | 2018-03-01 09:55 | PN ---
[facility] Progress Note Note: Patient reports feeling well. Tolerating detox well. States he is due to discharge tomorrow. Will continue rehab services as outpatient. Laboratory Tests 02/27/18 02/27/18 02/27/18 08:00 08:00 08:00 WBC 2.0 L RBC 3.90 L Hgb 11.7 Hct 35.8 MCV 91.9 MCH 30.1 MCHC 32.8 RDW 13.8 Plt Count 135 MPV 8.6 Sodium 141 Potassium 3.9 Chloride 101 Carbon Dioxide 24 Anion Gap 16 BUN 8 Creatinine 0.6 Creat Clearance w eGFR > 60 POC Glucometer Random Glucose 73 L Calcium 8.6 Total Bilirubin 0.7 AST 51 H ALT 34 Alkaline Phosphatase 80 Total Protein 7.6 Albumin 3.9 Urine Color Urine Appearance Urine pH Ur Specific [place] Urine Protein Urine Glucose (UA) Urine Ketones Urine Blood Urine Nitrite Urine Bilirubin Urine Urobilinogen Ur Leukocyte Esterase RPR Titer Nonreactive 02/27/18 02/27/18 02/28/18 16:11 16:30 05:28 WBC RBC Hgb Hct MCV MCH MCHC RDW Plt Count MPV Sodium Potassium Chloride Carbon Dioxide Anion Gap BUN Creatinine Creat Clearance w eGFR POC Glucometer 127 121 Random Glucose Calcium Total Bilirubin AST ALT Alkaline Phosphatase Total Protein Albumin Urine Color Yellow Urine Appearance Clear Urine pH 6.0 Ur Specific [place] 1.016 Urine Protein Negative Urine Glucose (UA) Negative Urine Ketones Trace H Urine Blood Negative Urine Nitrite Negative Urine Bilirubin Negative Urine Urobilinogen 4.0 e.u/dl Ur Leukocyte Esterase Negative RPR Titer Vital Signs Temperature 96.8 F L 03/01/18 09:09 Pulse Rate 67 03/01/18 09:09 Respiratory Rate 16 03/01/18 09:09 Blood Pressure 118/69 03/01/18 09:09 O2 Sat by Pulse Oximetry (%) alert and oriented skin warm and dry car s1s2 resp cta bl a/p: withdrawal syndrome continue detox as per protocol encourage oral fluids continue to monitor clinically.
[2018-03-01] MEDS: NICOTINE 14 MG/24 HOURS TOPICAL PATCH TD SCH (10:09)
[2018-03-01] MEDS: PRENATAL VITAMINS W/ FOLIC ACID TABLET (FP) PO SCH (10:09)
[2018-03-01 10:17] LABS: BASO % 0.6 % (0-2.0); EOS % 2.1 % (0-4.5); HEMATOCRIT 35.4 % (35.4-49); HEMOGLOBIN 11.7 GM/dL (11.7-16.9); LYMPH % 27.4 % (8-40); MCH 31.1 pg (25.7-33.7); MCHC 33.1 g/dl (32.0-35.9); MEAN CELL VOLUME 93.7 fl (80-96); MEAN PLT VOLUME 9.9 fl (7.5-11.1); MONO % 14.4 % (3.8-10.2); NEUT % 55.5 % (42.8-82.8); PLATELET COUNT 113 K/MM3 (134-434); RBC 3.77 M/mm3 (4.00-5.60); RDW 13.7 % (11.9-15.9); WHITE BLOOD COUNT 3.2 K/mm3 (4.0-10.0)
[2018-03-01] MEDS ORDERED: METHYL SALICYLATE/MENTHOL OINT 30 GM TUBE TP SCH (14:00)
[2018-03-01] MEDS: ACETAMINOPHEN 325 MG TABLET (FP) PO PRN (21:12)
[2018-03-01] MEDS: THIAMINE HCL 100 MG TABLET (FP) PO SCH (22:09)
[2018-03-01] MEDS: OLANZapine 5 MG TABLET PO SCH (22:11)
[2018-03-02] MEDS ORDERED: chlordiazePOXIDE HCL 10 MG CAPSULE PO SCH (05:00)
[2018-03-02 06:05] VITALS: BP 147/94; PULSE 83; TEMP 96.6
--- NOTE | 2018-03-02 09:55 | DS ---
[facility] Detox Discharge Summary Admission Date: 02/26/18 Discharge Date: 03/02/18 - History Present History: Alcohol Dependence, Cocaine Dependence - Physical Exam Results Vital Signs: Vital Signs Temperature 96.6 F L 03/02/18 06:04 Pulse Rate 83 03/02/18 06:04 Respiratory Rate 18 03/02/18 06:04 Blood Pressure 147/94 03/02/18 06:04 O2 Sat by Pulse Oximetry (%) - Treatment Hospital Course: Detox Protocol Followed, Detoxed Safely, Responded well, Discharged Condition Good - Medication Discharge Medications: Ambulatory Orders Olanzapine [Zyprexa] 5 mg PO HS #30 tablet 02/28/18 Acetaminophen 325 mg PO TID PRN #30 tablet 03/01/18 - Diagnosis (1) Cocaine dependence Status: Chronic (2) Alcohol dependence with uncomplicated withdrawal Status: Acute - AMA Did Patient Leave Against Medical Advice: Yes
== END 2018-03-02 06:35 | disposition home or self-care (01) | DRG 775 ==
LOC: YASAS 20:30 → Y3N 23:03
PROC: HZ2ZZZZ Detoxification Services for Substance Abuse Treatment (ICD-10-PCS; principal; 2018-02-26)
DX: F10.230 Alcohol dependence with withdrawal, uncomplicated (principal); F17.213 Nicotine dependence, cigarettes, with withdrawal; F25.9 Schizoaffective disorder, unspecified; F19.24 Other psychoactive substance dependence with psychoactive substance-induced mood disorder; F32.9 Major depressive disorder, single episode, unspecified; R31.9 Hematuria, unspecified; G47.00 Insomnia, unspecified; G40.909 Epilepsy, unspecified, not intractable, without status epilepticus
CPT/HCPCS: 36415; 80053; 81003; 82962; 85025; 85027; 86593; 93005; 93010

== ENCOUNTER 2018-03-17 21:38 | Inpatient (IN) | payer OTHER ==
--- NOTE | 2018-03-17 21:49 | PDOC ---
Rapid Medical Evaluation Time Seen by Provider: 03/17/18 21:45 Medical Evaluation: Allergies Allergy/AdvReac Type Severity Reaction Status Date / Time No Known Allergies Allergy Verified 02/26/18 22:58 03/17/18 21:45 I have performed a brief in-person evaluation of this patient. The patient presents with a chief complaint of: rash to chest and lower back Pertinent physical exam findings: AOB. Dermatomal vesicular rash present to right chest and right upper back I have ordered the following: nothing The patient will proceed to the ED for further evaluation. Discharge Disposition - Diagnosis Alcohol use with intoxication, Shingles rash - Referrals - Patient Instructions - Post Discharge Activity
[2018-03-17 21:53] VITALS: BMI 25.8
--- NOTE | 2018-03-18 03:17 | PDOC ---
Attending Attestation - Resident Resident Name: Adolph Castellon - ED Attending Attestation I have performed the following: I have examined & evaluated the patient, The case was reviewed & discussed with the resident, I agree w/resident's findings & plan - HPI HPI: 03/18/18 06:09 Pt comes with ETOH intox. 03/18/18 06:10 Pt went to detox; but they could't accept him, as he was there 10 days ago; further they found that he has shingles. - Physicial Exam PE: 03/18/18 06:11 Agree with resident exam. - Medical Decision Making 03/18/18 05:19 Pt has leukopenia in the face of a shingles; we will admit for ID eval and IV acyclovir. 03/18/18 06:11 Pt needs contact and resp isolation
--- NOTE | 2018-03-18 03:22 | PDOC ---
History of Present Illness - General Chief Complaint: Alcohol intoxication Stated Complaint: INTOX Time Seen by Provider: 03/17/18 21:45 History Source: Patient Exam Limitations: Intoxication - History of Present Illness Initial Comments: 03/18/18 03:33 Patient is a 58M with history of depression and alcohol abuse here today complaining of a rash to the right side of his chest. Patient presented to [facility] today for detox where his alcohol level was 330. Patient states that the rash started two days ago and describes the pain as something that makes him want to tear his skin off. Denies fevers, chills, nausea, vomiting. Denies shortness of breath. Denies history of seizures. Last drink 1 hour prior to arrival in ED. Past History - Past Medical History Allergies/Adverse Reactions: Allergies Allergy/AdvReac Type Severity Reaction Status Date / Time No Known Allergies Allergy Verified 03/17/18 21:53 Home Medications: Ambulatory Orders Olanzapine [Zyprexa] 5 mg PO HS #30 tablet 02/28/18 Acetaminophen 325 mg PO TID PRN #30 tablet 03/01/18 Valacyclovir HCl [Valtrex -] 1,000 mg PO TID #21 tablet 03/18/18 Anemia: No Asthma: No Cancer: No Cardiac Disorders: No CVA: No COPD: No CHF: No Dementia: No Diabetes: No GI Disorders: No Disorders: No HTN: No Hypercholesterolemia: No Kidney Stones: No Liver Disease: No Psychiatric Problems: Yes (Depression, schizophrenia) Seizures: Yes (Not on medication) Thyroid Disease: No - Surgical History Abdominal Surgery: No Appendectomy: No Cardiac Surgery: No Cholecystectomy: No Lung Surgery: No Neurologic Surgery: No Orthopedic Surgery: Yes (LT KNEE SX) - Reproductive History Testicular Surgery: No - Immunization History Immunization Up to Date: Yes - Suicide/Smoking/Psychosocial Hx Smoking Status: Yes Smoking History: Current every day smoker Have you smoked in the past 12 months: Yes Number of Cigarettes Smoked Daily: 10 Cigars Per Day: 10 Information on smoking cessation initiated: No 'Breaking Loose' booklet given: 02/26/18 Hx Alcohol Use: Yes Drug/Substance Use Hx: No Substance Use Type: Alcohol, Marijuana Hx Substance Use Treatment: No Review of Systems - Review of Systems Comments:: 03/18/18 03:36 GENERAL/CONSTITUTIONAL: No fever or chills. No weakness. HEAD, EYES, EARS, NOSE AND THROAT: No change in vision. No sore throat. CARDIOVASCULAR: +chest pain No shortness of breath RESPIRATORY: No cough, wheezing, or hemoptysis. GASTROINTESTINAL: No nausea, vomiting, diarrhea or constipation. GENITOURINARY: No dysuria, frequency, or change in urination. MUSCULOSKELETAL: No joint or muscle swelling or pain. No neck or back pain. SKIN: No rash NEUROLOGIC: No headache, vertigo, loss of consciousness, or change in strength/ sensation. ENDOCRINE: No increased thirst. No abnormal weight change HEMATOLOGIC/LYMPHATIC: No anemia, easy bleeding, or history of blood clots. ALLERGIC/IMMUNOLOGIC: No hives or skin allergy. *Physical Exam - Vital Signs Last Vital Signs Temp Pulse Resp BP Pulse Ox 97.9 F 88 18 132/82 98 03/17/18 21:45 03/17/18 21:45 03/17/18 21:45 03/17/18 21:45 03/17/18 21:45 - Physical Exam Comments: 03/18/18 03:36 GENERAL: Awake, alert, and fully oriented, in no acute distress, smells of alcohol CHEST: Vesicular rash along back to chest along T4 dermatome HEAD: No signs of trauma, normocephalic, atraumatic EYES: PERRLA, EOMI, sclera anicteric, conjunctiva clear ENT: Auricles normal inspection, hearing grossly normal, nares patent, oropharynx clear without exudates. Moist mucosa NECK: Normal ROM, supple, no lymphadenopathy, JVD, or masses LUNGS: No distress, speaks full sentences, clear to auscultation bilaterally HEART: Regular rate and rhythm, normal S1 and S2, no murmurs, rubs or gallops, peripheral pulses normal and equal bilaterally. ABDOMEN: Soft, nontender, normoactive bowel sounds. No guarding, no rebound. No masses EXTREMITIES: Normal inspection, Normal range of motion, no edema. No clubbing or cyanosis. NEUROLOGICAL: Cranial nerves II through XII grossly intact. Slurred speech, no focal sensorimotor deficits ED Treatment Course - LABORATORY CBC & Chemistry Diagram: 03/18/18 03:49 03/18/18 03:49 Medical Decision Making - Medical Decision Making 03/18/18 03:37 Patient is 58M with history of alcohol abuse and depression here today with alcohol intoxication and zoster. Vitals normal and stable. Will treat with valacyclovir. 03/18/18 05:37 EKG shows normal sinus rhythm with rate of 77. No st elevation/depression. Normal intervals. Normal axis. No st elevations/depressions. Isoelectric in aVL , possible lead failure. CXR shows no infiltrate. UA clear. CBC shows leukopenia, concern that patient is immunocompromised with shingles. Will admit for ID work up and alcohol withdrawal. Patient placed in isolation. *DC/Admit/Observation/Transfer Diagnosis at time of Disposition: Alcohol use with intoxication, Shingles rash, Alcohol withdrawal - Discharge Dispostion Condition at time of disposition: Stable Decision to Admit order: Yes - Prescriptions - Referrals - Patient Instructions - Post Discharge Activity
[2018-03-18] MEDS ORDERED: valACYclovir HCL 1000 MG TABLET PO ONE (03:38)
[2018-03-18] MEDS ORDERED: valACYclovir HCL 500 MG TABLET (FP) ONE ×3 (03:58→22:55)
[2018-03-18 04:38] LABS: HEMATOCRIT 34.9 % (35.4-49); HEMOGLOBIN 11.7 GM/dL (11.7-16.9); MCH 30.5 pg (25.7-33.7); MCHC 33.6 g/dl (32.0-35.9); MEAN CELL VOLUME 90.9 fl (80-96); MEAN PLT VOLUME 8.2 fl (7.5-11.1); PLATELET COUNT 266 K/MM3 (134-434); RBC 3.84 M/mm3 (4.00-5.60); RDW 13.5 % (11.9-15.9); WHITE BLOOD COUNT 2.3 K/mm3 (4.0-10.0)
[2018-03-18 04:40] LABS: URINE APPEARANCE CLEAR; URINE BILIRUBIN NEGATIVE (<2.0 mg/dL); URINE COLOR LTYELLOW; URINE GLUCOSE (UA) NEGATIVE (NEGATIVE); URINE KETONE NEGATIVE (NEGATIVE); URINE LEUK ESTERASE NEGATIVE (NEGATIVE); URINE NITRITE NEGATIVE (NEGATIVE); URINE PROTEIN NEGATIVE (NEGATIVE)
[2018-03-18 05:22] LABS: ALBUMIN 3.5 g/dl (3.4-5.0); ALK PHOS 75 U/L (45-117); ANION GAP 2 MMOL/L (8-16); BLOOD UREA NITROGEN 12 mg/dL (7-18); CALCIUM 9.4 mg/dL (8.5-10.1); CHLORIDE 105 mmol/L (98-107); CO2 28 mmol/L (21-32); CREATININE 0.6 mg/dL (0.55-1.3); GLUCOSE,RANDOM 100 mg/dL (74-106); MAGNESIUM 1.6 mg/dL (1.8-2.4); PHOSPHOROUS 3.4 mg/dL (2.5-4.9); POTASSIUM 4.1 mmol/L (3.5-5.1); SGOT/AST 92 U/L (15-37); SGPT/ALT 51 U/L (13-61); SODIUM 135 mmol/L (136-145); TOT PROT 7.5 g/dl (6.4-8.2)
[2018-03-18] MEDS ORDERED: MAGNESIUM SULF 50% (8.12 MEQ/2 ML-1 GM VIAL) IVPB ONE (05:55)
--- NOTE | 2018-03-18 06:40 | HP ---
CHIEF COMPLAINT: rash/etoh PCP: none HISTORY OF PRESENT ILLNESS: This is a 58 year old male with a history of alcohol abuse/dependence and schizophrenia who presented to the ED after being sent from [facility]. Pt presented to [facility] for alcohol detox but was sent to the ED when informed he has a rash to his right flank and chest. Pt denies pain to area but reports and odd and itchy sensation. Pt states his last drink was yesterday afternoon. ER course was notable for: (1) WBC 2.3 (2) Mg 1.6 Recent Travel: pt denies PAST MEDICAL HISTORY: depression, schizophrenia, seizures (not on meds) and alcohol dependence PAST SURGICAL HISTORY: L knee surgery Social History: Smokin/2 PPD since his teens Alcohol: 1-2 pints/day and 24 beers Drugs: pt denies Family History: mother age 83, "old age" father age 84, h/o DM brother age 29, MVC brother alive with "mental problems" Allergies No Known Allergies Allergy (Verified 03/17/18 21:53) HOME MEDICATIONS: 3 Medication Instructions Recorded Olanzapine [Zyprexa] 5 mg PO HS #30 tablet 02/28/18 Acetaminophen 325 mg PO TID PRN #30 tablet 03/01/18 REVIEW OF SYSTEMS CONSTITUTIONAL: Absent: fever, chills, diaphoresis, generalized weakness, malaise, loss of appetite, weight change HEENT: Absent: rhinorrhea, nasal congestion, throat pain, throat swelling, difficulty swallowing, mouth swelling, ear pain, eye pain, visual changes CARDIOVASCULAR: Absent: chest pain, syncope, palpitations, irregular heart rate, lightheadedness , peripheral edema RESPIRATORY: Absent: cough, shortness of breath, dyspnea with exertion, orthopnea, wheezing, stridor, hemoptysis GASTROINTESTINAL: Absent: abdominal pain, abdominal distension, nausea, vomiting, diarrhea, constipation, melena, hematochezia GENITOURINARY: Absent: dysuria, frequency, urgency, hesitancy, hematuria, flank pain, genital pain MUSCULOSKELETAL: Absent: myalgia, arthralgia, joint swelling, back pain, neck pain SKIN: Present: rash, itching Absent: pallor HEMATOLOGIC/IMMUNOLOGIC: Absent: easy bleeding, easy bruising, lymphadenopathy, frequent infections ENDOCRINE: Absent: unexplained weight gain, unexplained weight loss, heat intolerance, cold intolerance NEUROLOGIC: Absent: headache, focal weakness or paresthesias, dizziness, unsteady gait, seizure, mental status changes, bladder or bowel incontinence PSYCHIATRIC: Absent: anxiety, depression, suicidal or homicidal ideation, hallucinations. PHYSICAL EXAMINATION Vital Signs - 24 hr 3 03/17/18 21:45 Temperature 97.9 F Pulse Rate 88 Respiratory 18 Rate Blood Pressure 132/82 O2 Sat by Pulse 98 Oximetry (%) GENERAL: Awake, alert, and fully oriented, in no acute distress. HEAD: Normal with no signs of trauma. EYES: Pupils equal, round and reactive to light, extraocular movements intact, sclera anicteric, conjunctiva clear. No lid lag. EARS, NOSE, THROAT: Ears normal, nares patent, oropharynx clear without exudates. Moist mucous membranes. NECK: Normal range of motion, supple without lymphadenopathy, JVD, or masses. LUNGS: Breath sounds equal, clear to auscultation bilaterally. No wheezes, and no crackles. No accessory muscle use. HEART: Regular rate and rhythm, normal S1 and S2 without murmur, rub or gallop. ABDOMEN: Soft, nontender, not distended, normoactive bowel sounds, no guarding, no rebound, no masses. No hepatomegaly or splenomegaly. MUSCULOSKELETAL: Normal range of motion at all joints. No bony deformities or tenderness. No CVA tenderness. UPPER EXTREMITIES: 2+ pulses, warm, well-perfused. No cyanosis. No clubbing. No peripheral edema. LOWER EXTREMITIES: 2+ pulses, warm, well-perfused. No calf tenderness. No peripheral edema. NEUROLOGICAL: Cranial nerves II-XII intact. Normal speech. Normal gait. minor hand tremor noted with arms outstretched PSYCHIATRIC: Cooperative. Good eye contact. Appropriate mood and affect. SKIN: Warm, dry, normal turgor, no rashes or lesions noted, normal capillary refill. vesicular rash to right upper chest and back over T4 dermatome Laboratory Results - last 24 hr 3 03/18/18 03/18/18 03/18/18 03:49 03:49 03:49 WBC 2.3 L RBC 3.84 L Hgb 11.7 Hct 34.9 L MCV 90.9 MCH 30.5 MCHC 33.6 RDW 13.5 Plt Count 266 D MPV 8.2 D Sodium 135 L Potassium 4.1 Chloride 105 Carbon Dioxide 28 Anion Gap 2 L BUN 12 Creatinine 0.6 Creat Clearance w eGFR > 60 Random Glucose 100 Calcium 9.4 Phosphorus 3.4 Magnesium 1.6 L Total Bilirubin 1.0 AST 92 H ALT 51 Alkaline Phosphatase 75 Total Protein 7.5 Albumin 3.5 Urine Color Ltyellow Urine Appearance Clear Urine pH 5.0 Ur Specific [place] 1.012 Urine Protein Negative Urine Glucose (UA) Negative Urine Ketones Negative Urine Blood Negative Urine Nitrite Negative Urine Bilirubin Negative Urine Urobilinogen 2.0 Ur Leukocyte Esterase Negative ASSESSMENT/PLAN: 58yM with PMH depression, schizophrenia, seizures and ETOH dependence s/p multiple hospitalizations for detox presented to the ED with a rash and for detox. Shingles - cont valtrex 1000mg q8h Leukopenia - h/o same on chart review - unclear if pt had workup in past but doubtful - consider hematology consult - ? side effect of zyprexa ETOH dependence/withdrawal - start librium taper, especially in setting of seizure history - consider detox consult schizophrenia/depression - pt denies h/o schizophrenia at time of exam, however has reported same to psych in past with h/o psych hospitalizations while incarcerated - cont home zyprexa for now DVT PPX - heparin 5000u TID FEN - tolerating po - BMP in am - regular diet as tolerated Dispo: Pt currently requires inpatient management of his emergent condition. Visit type - Emergency Visit Emergency Visit: Yes ED Registration Date: 03/18/18 Care time: The patient presented to the Emergency Department on the above date and was hospitalized for further evaluation of their emergent condition. - New Patient This patient is new to me today: Yes Date on this admission: 03/18/18 - Critical Care Critical Care patient: No
[2018-03-18] MEDS ORDERED: chlordiazePOXIDE HCL 25 MG CAPSULE PO PRN (06:50)
[2018-03-18] MEDS ORDERED: NICOTINE POLACRILEX 2 MG GUM BUC PRN (06:51)
[2018-03-18] MEDS: valACYclovir HCL 500 MG TABLET (FP) PO SCH ×3 (07:45→23:00)
[2018-03-18] MEDS: chlordiazePOXIDE HCL 25 MG CAPSULE PO SCH ×3 (11:30→22:44)
[2018-03-18] MEDS ORDERED: chlordiazePOXIDE HCL 25 MG CAPSULE ONE ×3 (11:32→22:16)
[2018-03-18] MEDS ORDERED: CALAMINE 8% TOPICAL LOTION 177 ML BOTTLE TP PRN (13:53)
[2018-03-18] MEDS: HEPARIN NA (PORCINE) 5,000 UNITS/ML 1ML VIAL SQ SCH ×2 (14:37→22:44)
--- NOTE | 2018-03-18 16:09 | PN ---
Physical Exam: SUBJECTIVE: Patient seen and examined in the ED awaiting bed assignment. Feels well, c/o of itchiness on back. mild tremors OBJECTIVE: Vital Signs Period Temp Pulse Resp BP Sys/Coelho Pulse Ox Last 24 Hr 97.9 F-98.5 F 84-89 16-18 132-141/77-89 98-98 GENERAL: The patient is awake, alert, and fully oriented, in no acute distress. HEAD: Normal with no signs of trauma. EYES: PERRL, extraocular movements intact, sclera anicteric, conjunctiva clear. No ptosis. ENT: Ears normal, nares patent, oropharynx clear without exudates, moist mucous membranes. NECK: Trachea midline, full range of motion, supple. LUNGS: Breath sounds equal, clear to auscultation bilaterally, no wheezes, no crackles, no accessory muscle use. HEART: Regular rate and rhythm, S1, S2 without murmur, rub or gallop. ABDOMEN: Soft, nontender, nondistended, normoactive bowel sounds, no guarding, no rebound, no hepatosplenomegaly, no masses. EXTREMITIES: 2+ pulses, warm, well-perfused, no edema. NEUROLOGICAL: Cranial nerves II through XII grossly intact. Normal speech, gait not observed. PSYCH: Normal mood, normal affect. SKIN: Warm, dry, normal turgor, no rashes or lesions noted Laboratory Results - last 24 hr 03/18/18 03/18/18 03/18/18 03:49 03:49 03:49 WBC 2.3 L RBC 3.84 L Hgb 11.7 Hct 34.9 L MCV 90.9 MCH 30.5 MCHC 33.6 RDW 13.5 Plt Count 266 D MPV 8.2 D Sodium 135 L Potassium 4.1 Chloride 105 Carbon Dioxide 28 Anion Gap 2 L BUN 12 Creatinine 0.6 Creat Clearance w eGFR > 60 Random Glucose 100 Calcium 9.4 Phosphorus 3.4 Magnesium 1.6 L Total Bilirubin 1.0 AST 92 H ALT 51 Alkaline Phosphatase 75 Total Protein 7.5 Albumin 3.5 Urine Color Ltyellow Urine Appearance Clear Urine pH 5.0 Ur Specific [place] 1.012 Urine Protein Negative Urine Glucose (UA) Negative Urine Ketones Negative Urine Blood Negative Urine Nitrite Negative Urine Bilirubin Negative Urine Urobilinogen 2.0 Ur Leukocyte Esterase Negative Active Medications Generic Name Dose Route Start Last Admin Trade Name Freq PRN Reason Stop Dose Admin Calamine 1 applic 03/18/18 13:53 Calamine 8% Topical Lotion - TP BID PRN FOR ITCHING Chlordiazepoxide HCl 50 mg 03/18/18 11:00 03/18/18 11:30 Librium - PO 03/19/18 05:01 50 mg [id number] ABEL Administration Chlordiazepoxide HCl 25 mg 03/19/18 11:00 Librium - PO 03/20/18 05:01 [id number] ABEL Chlordiazepoxide HCl 15 mg 03/20/18 11:00 Librium - PO 03/21/18 05:01 [id number] ABEL Chlordiazepoxide HCl 25 mg 03/18/18 06:50 Librium - PO 03/21/18 06:49 Q4H PRN WITHDRAWAL(CONT SUBST) Chlordiazepoxide HCl 10 mg 03/21/18 11:00 Librium - PO 03/22/18 05:01 [id number] ABEL Heparin Sodium (Porcine) 5,000 unit 03/18/18 14:00 03/18/18 14:37 Heparin - SQ 5,000 unit TID ABEL Administration Nicotine Polacrilex 2 mg 03/18/18 06:51 Nicorette Gum - BUC Q2H PRN NICOTINE REPLACEMENT RX Valacyclovir HCl 1,000 mg 03/18/18 07:15 03/18/18 14:37 Valtrex - PO 1,000 mg TID ABEL Administration ASSESSMENT/PLAN: Patient is a 58 year old male with a history of alcohol abuse, left knee arthroscopy, depression and schizophrenia. He comes to the ED from [facility]. Patient initially at [facility] for alcohol detox, but was sent to the ED after he was noted to have a shingles outbreak to his right flank and right chest. He was also to have leukopenia @ 2.3. ID: Shingles Noted to have shingels outbreak on right flank and right chest. Started on Valtrex 1000mg PO q 8 hours. Leukopenia: 2.3 wbc. Has been lower on previous admission. etiology uncertain but likely secondary to chronic alcohol use. Monitor in the setting of abstinence of alcohol. Psyche: ETOH dependence with acute withdrawal. Started on Librium taper, tolerating it well at this writing. States he is having mild hand tremors but improved. start folic acid, thiamine, multivitamin. schizophrenia, history depression, history On Zypexa at hs Ortho Left knee arthoscopy, chronic. History of falls. PT evlauation. fen tolerating po monitor electrolytes low salt diet full code heparin for anticoag . Visit type - Emergency Visit Emergency Visit: Yes ED Registration Date: 03/18/18 Care time: The patient presented to the Emergency Department on the above date and was hospitalized for further evaluation of their emergent condition. - New Patient This patient is new to me today: Yes Date on this admission: 03/19/18 - Critical Care Critical Care patient: No - Discharge Referral Referred to [facility] Med P.C.: No
--- NOTE | 2018-03-18 16:52 | EKG ---
Test Reason : Blood Pressure : / mmHG Vent. Rate : 077 BPM Atrial Rate : 077 BPM P-R Int : 172 ms QRS Dur : 090 ms QT Int : 414 ms P-R-T Axes : 066 061 066 degrees QTc Int : 468 ms NORMAL SINUS RHYTHM POSSIBLE LEFT ATRIAL ENLARGEMENT BORDERLINE ECG WHEN COMPARED WITH ECG OF 26-FEB-2018 23:57, NO SIGNIFICANT CHANGE WAS FOUND CLINICAL CORRELATION IS RECOMMENDED BASELINE ARTIFACT Confirmed by CATHI ALSTON, BRYON ([id number]) on 03/18/2018 4:51:53 PM Referred By: Confirmed By:BRYON WINKLER MD
[2018-03-18] MEDS ORDERED: HEPARIN NA (PORCINE) 5,000 UNITS/ML 1ML VIAL ONE (22:17)
[2018-03-19] MEDS: chlordiazePOXIDE HCL 25 MG CAPSULE PO SCH (06:06)
[2018-03-19] MEDS: valACYclovir HCL 500 MG TABLET (FP) PO SCH (06:06)
[2018-03-19] MEDS: HEPARIN NA (PORCINE) 5,000 UNITS/ML 1ML VIAL SQ SCH ×3 (06:06→21:28)
[2018-03-19 07:18] LABS: BASO % 1.7 % (0-2.0); EOS % 2.2 % (0-4.5); HEMATOCRIT 34.4 % (35.4-49); HEMOGLOBIN 11.3 GM/dL (11.7-16.9); LYMPH % 34.1 % (8-40); MCH 29.9 pg (25.7-33.7); MCHC 32.8 g/dl (32.0-35.9); MEAN CELL VOLUME 91.1 fl (80-96); MEAN PLT VOLUME 8.6 fl (7.5-11.1); MONO % 18.7 % (3.8-10.2); NEUT % 43.3 % (42.8-82.8); PLATELET COUNT 209 K/MM3 (134-434); RBC 3.78 M/mm3 (4.00-5.60); RDW 13.3 % (11.9-15.9)
[2018-03-19 08:08] LABS: WHITE BLOOD COUNT 1.9 K/mm3 (4.0-10.0)
[2018-03-19] MEDS ORDERED: MAGNESIUM SULF 50% (8.12 MEQ/2 ML-1 GM VIAL) IVPB ONE ×3 (08:45→09:45)
--- NOTE | 2018-03-19 08:57 | PN ---
Physical Exam: SUBJECTIVE: Patient seen and examined at the bedside. c/o of itchiness OBJECTIVE: wbc 1.9 vesicular rash to right upper chest and back over T4 dermatome. rash on right upper chest now slightly spreading under arm pit. started on iv acyclovir. may need hiv testing elevated ast/alt, stop librium, start ativan and consult detox physician for further recommendations. will order liver us, hep panel. Vital Signs Period Temp Pulse Resp BP Sys/Coelho Pulse Ox Last 24 Hr 98.2 F-98.8 F 78-89 16-20 132-153/76-91 95-98 GENERAL: Awake, alert, and fully oriented, in no acute distress. HEAD: Normal with no signs of trauma. EYES: Pupils equal, round and reactive to light, extraocular movements intact, sclera anicteric, conjunctiva clear. No lid lag. EARS, NOSE, THROAT: Ears normal, nares patent, oropharynx clear without exudates. Moist mucous membranes. NECK: Normal range of motion, supple without lymphadenopathy, JVD, or masses. LUNGS: Breath sounds equal, clear to auscultation bilaterally. No wheezes, and no crackles. No accessory muscle use. HEART: Regular rate and rhythm, normal S1 and S2 without murmur, rub or gallop. ABDOMEN: Soft, nontender, not distended, normoactive bowel sounds, no guarding, no rebound, no masses. No hepatomegaly or splenomegaly. MUSCULOSKELETAL: Normal range of motion at all joints. No bony deformities or tenderness. No CVA tenderness. UPPER EXTREMITIES: 2+ pulses, warm, well-perfused. No cyanosis. No clubbing. No peripheral edema. LOWER EXTREMITIES: 2+ pulses, warm, well-perfused. No calf tenderness. No peripheral edema. NEUROLOGICAL: Cranial nerves II-XII intact. Normal speech. Normal gait. minor hand tremor noted with arms outstretched PSYCHIATRIC: Cooperative. Good eye contact. Appropriate mood and affect. SKIN: Warm, dry, normal turgor, no rashes or lesions noted, normal capillary refill. vesicular rash to right upper chest and back over T4 dermatome. rash on right upper chest now slightly spreading under arm pit Laboratory Results - last 24 hr 03/19/18 06:20 WBC 1.9 L* RBC 3.78 L Hgb 11.3 L Hct 34.4 L MCV 91.1 MCH 29.9 MCHC 32.8 RDW 13.3 Plt Count 209 D MPV 8.6 Absolute Neuts (auto) 0.8 L Neutrophils % 43.3 D Lymphocytes % 34.1 D Monocytes % 18.7 H Eosinophils % 2.2 Basophils % 1.7 Nucleated RBC % 0 Active Medications Generic Name Dose Route Start Last Admin Trade Name Freq PRN Reason Stop Dose Admin Calamine 1 applic 03/18/18 13:53 Calamine 8% Topical Lotion - TP BID PRN FOR ITCHING Chlordiazepoxide HCl 25 mg 03/19/18 11:00 Librium - PO 03/20/18 05:01 [id number] ABEL Chlordiazepoxide HCl 15 mg 03/20/18 11:00 Librium - PO 03/21/18 05:01 [id number] ABEL Chlordiazepoxide HCl 25 mg 03/18/18 06:50 Librium - PO 03/21/18 06:49 Q4H PRN WITHDRAWAL(CONT SUBST) Chlordiazepoxide HCl 10 mg 03/21/18 11:00 Librium - PO 03/22/18 05:01 [id number] ABEL Folic Acid 1 mg 03/19/18 10:00 Folic Acid - PO DAILY [facility] Heparin Sodium (Porcine) 5,000 unit 03/18/18 14:00 03/19/18 06:06 Heparin - SQ 5,000 unit TID ABEL Administration Acyclovir 750 mg/ Dextrose 265 mls @ 265 mls/hr 03/19/18 10:00 IVPB Q8H-IV ABEL Sodium Chloride 1,000 mls @ 100 mls/hr 03/19/18 08:30 Normal Saline - IV ASDIR ABEL Magnesium Sulfate 2 gm 03/19/18 09:00 Magnesium Sulfate IVPB 03/19/18 09:01 ONCE ONE Multivitamins/Minerals/Vitamin C 1 tab 03/19/18 10:00 Tab-A-Vit - PO DAILY [facility] Nicotine Polacrilex 2 mg 03/18/18 06:51 Nicorette Gum - BUC Q2H PRN NICOTINE REPLACEMENT RX Thiamine HCl 100 mg 03/19/18 10:00 Vitamin B1 - PO DAILY [facility] ASSESSMENT/PLAN: Patient is a 58 year old male with a history of alcohol abuse, left knee arthroscopy, depression and schizophrenia. He comes to the ED from [facility]. Patient initially at [facility] for alcohol detox, but was sent to the ED after he was noted to have a shingles outbreak to his right flank and right chest. He was also to have leukopenia @ 2.3. ID: Shingles Noted to have shingles outbreak on right flank and right chest, right chest shingles slightly larger when compared to yesterday with vesicles. Started on IV acyclovir. Needs IVF hydraton whle on IV acyclovir, therefore on NS @ 100cc/ hr. Heme: Leukopenia: 2.3 wbc on admission, now 1.9. Has been lower on previous admission. etiology uncertain but likely secondary to chronic alcohol use. Monitor in the setting of abstinence of alcohol. Monitor with daily labs. for HIV testing. GI: Elevated AST/ALT. Will stop Librium for elevated liver enzymes and give ativan prn. q 6. Will order: liver ultrasound, hepatic panel. discussed with ID. Detox physician consulted. Psyche: ETOH dependence with acute withdrawal. On Libirium taper, however, will stop Libirium at this time secondary to elevated ast/alt. Will add ativan IV and consult detox physician for further recommendations. start folic acid, thiamine , multivitamin. No tremors on exam. schizophrenia, history depression, history On Zypexa at [facility] Left knee arthoscopy, chronic. History of falls. PT evaluation. fen tolerating po monitor electrolytes low salt diet full code heparin for anticoag . Visit type - Emergency Visit Emergency Visit: Yes ED Registration Date: 03/18/18 Care time: The patient presented to the Emergency Department on the above date and was hospitalized for further evaluation of their emergent condition. - New Patient This patient is new to me today: No - Critical Care Critical Care patient: No - Discharge Referral Referred to [facility] Med P.C.: No
[2018-03-19 09:22] LABS: ALBUMIN 3.4 g/dl (3.4-5.0); ALK PHOS 88 U/L (45-117); ANION GAP 9 MMOL/L (8-16); BILIRUBIN,TOTAL 0.8 mg/dL (0.2-1); BLOOD UREA NITROGEN 13 mg/dL (7-18); CALCIUM 8.6 mg/dL (8.5-10.1); CHLORIDE 100 mmol/L (98-107); CO2 27 mmol/L (21-32); CREATININE 0.8 mg/dL (0.55-1.3); GLUCOSE,RANDOM 75 mg/dL (74-106); MAGNESIUM 2.1 mg/dL (1.8-2.4); POTASSIUM 3.6 mmol/L (3.5-5.1); SGOT/AST 1084 U/L (15-37); SGPT/ALT 383 U/L (13-61); SODIUM 136 mmol/L (136-145); TOT PROT 7.2 g/dl (6.4-8.2)
[2018-03-19] MEDS: FOLIC ACID 1 MG TABLET (FP) PO SCH (09:45)
[2018-03-19] MEDS: MULTIVITAMINS (DAILY MVI) TABLET (FP) PO SCH (09:45)
[2018-03-19] MEDS: THIAMINE HCL 100 MG TABLET (FP) PO SCH (09:45)
[2018-03-19 10:44] LABS: ANISOCYTOSIS 1+; PLATELET ESTIMATE ADEQUATE
[2018-03-19] MEDS ORDERED: chlordiazePOXIDE HCL 25 MG CAPSULE PO SCH (11:00)
--- NOTE | 2018-03-19 12:12 | CON.ID ---
Consult Consult Specialty:: infectious disease Referred by:: hospitalist Reason for Consultation:: zoster - History of Present Illness Chief Complaint: itchy rash on chest wall for 3 days History of Present Illness: presented to detox 03/17 with rash on chest , referred to ED noted to have dermatomal zoster and started on po valtrex asked to evaluate he drinks beer daily alternates with detox 5 days at [facility] and [facility] got out of [facility] about 2 weeks ago lives in [place] in an apt denies history of hepatitis or hiv no fevers no abdominal pain denies injection drug use - History Source History Provided By: Patient, Medical Record Limitations to Obtaining History: No Limitations - Past Medical History Infectious Disease: Yes: Other (positive ppd treated) Psych: Yes: Depression - Past Surgical History Additional Surgical History: left knee arthroscopy - Alcohol/Substance Use Hx Alcohol Use: Yes (beer) Number of Drinks Daily: 8 - Smoking History Smoking history: Current every day smoker Have you smoked in the past 12 months: Yes Aproximately how many cigarettes per day: 10 - Social History Usual Living Arrangement: Alone ADL: Independent History of Recent Travel: No Home Medications - Allergies Allergies/Adverse Reactions: Allergies Allergy/AdvReac Type Severity Reaction Status Date / Time No Known Allergies Allergy Verified 03/17/18 21:53 - Home Medications Home Medications: Ambulatory Orders NK [No Known Home Medication] 03/18/18 Home Medications (free text): zyprexa 5 mg daily Family Disease History - Family Disease History Family Disease History: Other: Brother (alcohol,dsa) Review of Systems - Review of Systems Constitutional: reports: No Symptoms Eyes: reports: No Symptoms HENT: reports: No Symptoms Neck: reports: No Symptoms Cardiovascular: reports: No Symptoms Respiratory: reports: No Symptoms Gastrointestinal: reports: No Symptoms Genitourinary: reports: No Symptoms Physical Exam Vital Signs: Vital Signs Temperature 98.2 F 03/19/18 05:00 Pulse Rate 80 03/19/18 05:00 Respiratory Rate 16 03/19/18 10:00 Blood Pressure 150/88 03/19/18 05:00 O2 Sat by Pulse Oximetry (%) 96 03/19/18 10:00 Constitutional: Yes: Well Nourished, No Distress, Calm Eyes: Yes: Conjunctiva Clear HENT: Yes: Atraumatic, Normocephalic Neck: Yes: Supple, Trachea Midline Cardiovascular: Yes: Regular Rate and Rhythm Respiratory: Yes: Regular, CTA Bilaterally Gastrointestinal: Yes: Normal Bowel Sounds, Soft ...Rectal Exam: Yes: Deferred Extremities: Yes: WNL Edema: No Integumentary: Yes: Other (vesicular rash from right anterior chest wall to under axilla to the back stopping at midline) Labs: CBC, BMP 03/19/18 06:20 03/19/18 08:20 Imaging - Results Chest X-ray: Report Reviewed, Image Reviewed Problem List - Problems (1) Shingles rash Code(s): B02.9 - ZOSTER WITHOUT COMPLICATIONS (2) Abnormal LFTs Code(s): R94.5 - ABNORMAL RESULTS OF LIVER FUNCTION STUDIES (3) Alcohol withdrawal Code(s): F10.239 - ALCOHOL DEPENDENCE WITH WITHDRAWAL, UNSPECIFIED Assessment/Plan dermatomal zoster abnormal LFTs- ?real- no hypotension, occasional tylenol use only - sudden increase noted- ?lab error etoh use leukopenia- longstanding- agreeable to hiv testing (negative in November) for repeat with INR and cpk ordered stat if lfts are real needs ultrasound, and hepatitis serology would consider GI evaluation as well can treat with iv acyclovir and ivf for 24 hours while the above workup is in progress
[2018-03-19] MEDS: ACYCLOVIR INJECTION 750 MG in DEXTROSE 5%-WATER - 250 ML IVPB SCH ×2 (12:14→12:19)
[2018-03-19] MEDS: SODIUM CHLORIDE 1,000 ML IV SCH (12:14)
[2018-03-19 12:58] LABS: INR 0.97 (0.83-1.09); PROTHROMBIN TIME (PATIENT) 11.4 SEC (9.7-13.0)
[2018-03-19 13:03] LABS: ALBUMIN 3.5 g/dl (3.4-5.0); ALK PHOS 96 U/L (45-117); ANION GAP 8 MMOL/L (8-16); BILIRUBIN,TOTAL 0.8 mg/dL (0.2-1); BLOOD UREA NITROGEN 11 mg/dL (7-18); CHLORIDE 100 mmol/L (98-107); CO2 24 mmol/L (21-32); CREATININE 0.8 mg/dL (0.55-1.3); GLUCOSE,RANDOM 132 mg/dL (74-106); POTASSIUM 3.8 mmol/L (3.5-5.1); SGOT/AST 816 U/L (15-37); SGPT/ALT 359 U/L (13-61); SODIUM 132 mmol/L (136-145); TOT PROT 7.8 g/dl (6.4-8.2)
[2018-03-19 14:22] LABS: MAGNESIUM 1.8 mg/dL (1.8-2.4)
[2018-03-19] MEDS ORDERED: LORazepam 2 MG/ML SDV VIAL IVPUSH PRN (14:29)
[2018-03-19] MEDS: ACYCLOVIR INJECTION 620 MG in DEXTROSE 5%-WATER - 100 ML IVPB SCH ×2 (15:01→21:29)
--- NOTE | 2018-03-19 18:37 | CONSULT ---
Consult Detox [facility] Reason for Current Admission/Consult: alcohol detox - History History of Present Illness: Pt gives a long h/o alcohol use disorder. Has been to [facility] detox several times in the past year. Pt came to ER for a new rash- Herpes Zoster- being treated with anti-virals and also with several electrolyte abnormalities. Pt states he drinks about 2 6 packs of beer a day. Pt denies h/o seizures, DT's or "black outs". Pt would like to go to [facility] detox and rehab if insurance allows. This report was requested by: En Weiner | Reference #: [id number] Others' Prescriptions Patient Name: Burak Myles Date: 1960 Address: [address] [place] [address] Sex: Male Rx Written Rx Dispensed Drug Quantity Days Supply Prescriber Name 10/01/2017 10/01/2017 chlordiazepoxide 25 mg capsule 3 3 Franco Nix M () * - Drugs marked with an asterisk are c - History Source History Provided By: Patient Limitations to Obtaining History: No Limitations - Alcohol/Substance Use Hx Alcohol Use: Yes (beer) - Past Medical History Infectious Disease: Yes: Other (positive ppd treated) Psych: Yes: Depression - Past Surgical History Additional Surgical History: left knee arthroscopy - Significant Medical Findings: pt came in with abnormal liver enzymes- resolving. And being treated for H Zoster. And repletion of minerals. Pt was on librium detox protocol. Changed to Ativan prn CIWA Score - CIWA Score Nausea/Vomitin-No Nausea/No Vomiting Muscle Tremors: None Anxiety: 0-No Anxiety, at Ease Agitation: 0-Normal Activity Paroxysmal Sweats: No Perspiration Orientation: 0-Oriented Tacttile Disturbances: 0-None Auditory Disturbances: 0-None Visual Disturbances: 0-None Headache: 0-None Present (pt is on alcohol detox protocol) CIWA-Ar Total Score: 0 Assessment Plan - Diagnosis (1) Alcohol withdrawal Status: Acute Qualifiers: Complication of substance-induced condition: with unspecified complication Qualified Code(s): F10.239 - Alcohol dependence with withdrawal, unspecified Comment: electrolyte and liver tests abnormalities - Plan Plan: Pt getting prn Ativan for alcohol withdrawal Sx. will add standing dose ativan 1mg BID today and last dose of Ativan tomorrow morning. Pt will remain on Ativan prn. Pt had an episode of confusion last night- felt to be secondary to melatonin- fine this morning. Pt would like to go for inpatient alcohol rehab- please have SW call different facilities- [facility] to find a open spot. Please call us- [phone] if we can be of further assistance. - Medication Detox Regimen/Protocol: Madi
[2018-03-19] MEDS ORDERED: PT OWN MED DRAWER 7, Y5N ONE (21:13)
[2018-03-19] MEDS ORDERED: MELATONIN 5 MG TABLETS PO ONE (22:32)
[2018-03-20] MEDS: SODIUM CHLORIDE 1,000 ML IV SCH ×2 (01:17→06:17)
[2018-03-20] MEDS: HEPARIN NA (PORCINE) 5,000 UNITS/ML 1ML VIAL SQ SCH ×3 (06:16→21:19)
[2018-03-20] MEDS: ACYCLOVIR INJECTION 620 MG in DEXTROSE 5%-WATER - 100 ML IVPB SCH (06:16)
[2018-03-20 07:51] LABS: BASO % 1.3 % (0-2.0); EOS % 1.9 % (0-4.5); HEMOGLOBIN 10.8 GM/dL (11.7-16.9); LYMPH % 36.6 % (8-40); MCH 29.9 pg (25.7-33.7); MCHC 32.9 g/dl (32.0-35.9); MEAN CELL VOLUME 90.8 fl (80-96); MEAN PLT VOLUME 8.8 fl (7.5-11.1); MONO % 21.9 % (3.8-10.2); NEUT % 38.3 % (42.8-82.8); PLATELET COUNT 178 K/MM3 (134-434); RBC 3.63 M/mm3 (4.00-5.60); RDW 13.4 % (11.9-15.9); WHITE BLOOD COUNT 2.3 K/mm3 (4.0-10.0)
[2018-03-20 08:19] LABS: ALBUMIN 3.2 g/dl (3.4-5.0); ALK PHOS 85 U/L (45-117); ANION GAP 7 MMOL/L (8-16); BILIRUBIN,TOTAL 0.7 mg/dL (0.2-1); BLOOD UREA NITROGEN 9 mg/dL (7-18); CALCIUM 8.8 mg/dL (8.5-10.1); CHLORIDE 100 mmol/L (98-107); CO2 26 mmol/L (21-32); CREATININE 0.8 mg/dL (0.55-1.3); GLUCOSE,RANDOM 109 mg/dL (74-106); MAGNESIUM 1.8 mg/dL (1.8-2.4); POTASSIUM 3.8 mmol/L (3.5-5.1); SGOT/AST 277 U/L (15-37); SGPT/ALT 205 U/L (13-61); SODIUM 134 mmol/L (136-145); TOT PROT 7.1 g/dl (6.4-8.2)
[2018-03-20] MEDS: FOLIC ACID 1 MG TABLET (FP) PO SCH (09:18)
[2018-03-20] MEDS: THIAMINE HCL 100 MG TABLET (FP) PO SCH (09:18)
[2018-03-20] MEDS: MULTIVITAMINS (DAILY MVI) TABLET (FP) PO SCH (09:18)
--- NOTE | 2018-03-20 10:03 | PN ---
Physical Exam: SUBJECTIVE: Patient seen and examined at the bedside. ambulating. feels well in no acute distress. Spoke to patient who asked to go home. explained to him that he is still being detoxed as well as getting treatment with acyclovir for shingles and having his liver enzymes monitored closely. he is agreeing to stay and complete treatment. OBJECTIVE: Librium protocol stopped yesterday 2/2 to elevated liver enzymes. seen by detox specialist and started on ativan detox. liver u/s reviewed. Vital Signs Period Temp Pulse Resp BP Sys/Coelho Pulse Ox Last 24 Hr 98.2 F-99.1 F 71-84 19-20 129-151/75-92 96 GENERAL: Awake, alert, and fully oriented, in no acute distress. HEAD: Normal with no signs of trauma. EYES: Pupils equal, round and reactive to light, extraocular movements intact, sclera anicteric, conjunctiva clear. No lid lag. EARS, NOSE, THROAT: Ears normal, nares patent, oropharynx clear without exudates. Moist mucous membranes. NECK: Normal range of motion, supple without lymphadenopathy, JVD, or masses. LUNGS: Breath sounds equal, clear to auscultation bilaterally. No wheezes, and no crackles. No accessory muscle use. HEART: Regular rate and rhythm, normal S1 and S2 without murmur, rub or gallop. ABDOMEN: Soft, nontender, not distended, normoactive bowel sounds, no guarding, no rebound, no masses. No hepatomegaly or splenomegaly. UPPER EXTREMITIES: No peripheral edema. LOWER EXTREMITIES: No peripheral edema. NEUROLOGICAL: Normal speech. Normal gait. no tremors PSYCHIATRIC: Cooperative. Good eye contact. Appropriate mood and affect. SKIN: improvement of vesicular rash to right upper chest and back over T4 dermatome Laboratory Results - last 24 hr 03/19/18 03/19/18 03/19/18 06:20 12:17 12:17 WBC RBC Hgb Hct MCV MCH MCHC RDW Plt Count MPV Absolute Neuts (auto) Neutrophils % Lymphocytes % Monocytes % Eosinophils % Basophils % Nucleated RBC % Hypochromia 1+ Platelet Estimate Adequate Anisocytosis 1+ PT with INR 11.40 INR 0.97 Sodium 132 L Potassium 3.8 Chloride 100 Carbon Dioxide 24 Anion Gap 8 BUN 11 Creatinine 0.8 Creat Clearance w eGFR > 60 Random Glucose 132 H Calcium 9.0 Magnesium 1.8 Total Bilirubin 0.8 AST 816 H ALT 359 H Alkaline Phosphatase 96 Creatine Kinase 83 Total Protein 7.8 Albumin 3.5 HIV 1&2 Antibody Screen HIV P24 Antigen 03/19/18 03/20/18 03/20/18 12:17 06:00 06:00 WBC 2.3 L RBC 3.63 L Hgb 10.8 L Hct 33.0 L MCV 90.8 MCH 29.9 MCHC 32.9 RDW 13.4 Plt Count 178 MPV 8.8 Absolute Neuts (auto) 0.9 L Neutrophils % 38.3 L Lymphocytes % 36.6 Monocytes % 21.9 H Eosinophils % 1.9 Basophils % 1.3 Nucleated RBC % 0 Hypochromia Platelet Estimate Anisocytosis PT with INR INR Sodium 134 L Potassium 3.8 Chloride 100 Carbon Dioxide 26 Anion Gap 7 L BUN 9 Creatinine 0.8 Creat Clearance w eGFR > 60 Random Glucose 109 H Calcium 8.8 Magnesium 1.8 Total Bilirubin 0.7 AST 277 H ALT 205 H Alkaline Phosphatase 85 Creatine Kinase Total Protein 7.1 Albumin 3.2 L HIV 1&2 Antibody Screen Negative HIV P24 Antigen Negative Active Medications Generic Name Dose Route Start Last Admin Trade Name Freq PRN Reason Stop Dose Admin Calamine 1 applic 03/18/18 13:53 Calamine 8% Topical Lotion - TP BID PRN FOR ITCHING Folic Acid 1 mg 03/19/18 10:00 03/20/18 09:18 Folic Acid - PO 1 mg DAILY ABEL Administration Heparin Sodium (Porcine) 5,000 unit 03/18/18 14:00 03/20/18 06:16 Heparin - SQ 5,000 unit TID ABEL Administration Sodium Chloride 1,000 mls @ 100 mls/hr 03/19/18 08:30 03/20/18 06:17 Normal Saline - IV 100 mls/hr ASDIR ABEL Administration Acyclovir 620 mg/ Dextrose 112.4 mls @ 100 mls/hr 03/19/18 14:00 03/20/18 06: 16 IVPB 100 mls/hr Q8H ABEL Administration Lorazepam 1 mg 03/19/18 14:29 Ativan Injection - IVPUSH Q6H PRN withdrawals Lorazepam 1 mg 03/20/18 10:00 Ativan - PO BID ABEL Multivitamins/Minerals/Vitamin C 1 tab 03/19/18 10:00 03/20/18 09:18 Tab-A-Vit - PO 1 tab DAILY ABEL Administration Nicotine Polacrilex 2 mg 03/18/18 06:51 Nicorette Gum - BUC Q2H PRN NICOTINE REPLACEMENT RX Olanzapine 5 mg 03/20/18 22:00 Zyprexa - PO HS ABEL Thiamine HCl 100 mg 03/19/18 10:00 03/20/18 09:18 Vitamin B1 - PO 100 mg DAILY ABEL Administration ASSESSMENT/PLAN: Patient is a 58 year old male with a history of alcohol abuse, left knee arthroscopy, depression and schizophrenia. He comes to the ED from [facility]. Patient initially at [facility] for alcohol detox, but was sent to the ED after he was noted to have a shingles outbreak to his right flank and right chest. He was also to have leukopenia @ 2.3 on admission. imaging: liver ultrasound: possible mild diffuse fatty infiltration of the liver. ID: Shingles/Herpes Zoster, acute Noted to have shingles outbreak on right flank and right chest. Acyclovir IV stopped yesterday when patient developed elevated liver enzymes. Now on Acyclovir 1000mg tid. Heme: Leukopenia: wbc @ 2.3, was 1.9 yesterday. Has been lower on previous admission. etiology uncertain but likely secondary to chronic alcohol use/abuse. Monitor wbc in the setting of abstinence of alcohol. Monitor with daily labs. Tested negative for HIV. GI: Elevated AST/ALT. Librium stopped for elevated liver enzymes. Started on Ativan PO by detox specialist. Hepatic panel pending. Liver u/s with possible mild diffuse fatty infiltration of the liver. Psyche: ETOH dependence with acute withdrawal. Libirum stopped, started on ativan scheduled. On folic acid, thiamine, multivitamin. No tremors on exam. schizophrenia, history depression, history On Zypexa at [facility] Left knee arthoscopy, chronic. History of falls. PT evaluation. fen tolerating po monitor electrolytes low salt diet full code heparin for anticoag . Visit type - Emergency Visit Emergency Visit: Yes ED Registration Date: 03/18/18 Care time: The patient presented to the Emergency Department on the above date and was hospitalized for further evaluation of their emergent condition. - New Patient This patient is new to me today: No - Critical Care Critical Care patient: No - Discharge Referral Referred to [facility] Med P.C.: No
[2018-03-20 10:17] LABS: ACANTHOCYTES 0; ANISOCYTOSIS 0; HELMET CELLS 0; HOWELL-JOLLY BODIES 0; MACROCYTOSIS 0; OVALOCYTE 0; PLATELET ESTIMATE NORMAL; ROULEAU 0; SICKELED CELLS 0; TARGET CELLS 0; TEAR DROP CELLS 0; TOXIC GRANULATION 0
[2018-03-20] MEDS ORDERED: chlordiazePOXIDE 5 MG CAPSULE PO SCH (11:00)
[2018-03-20] MEDS: LORazepam 1 MG TABLET PO SCH ×2 (12:11→21:19)
--- NOTE | 2018-03-20 12:19 | PN ---
Progress Note (short form) - Note Progress Note: doing well c/o itching at rash site and insomnia Vital Signs Period Temp Pulse Resp BP Sys/Coelho Pulse Ox Last 24 Hr 98.2 F-99.1 F 71-84 19-20 129-151/75-92 96 cor-rrr lungs clear abd soft,nt rash unchanged ext no edema CBC, BMP 03/20/18 06:00 03/20/18 06:00 Microbiology 03/18/18 03:49 Urine - Urine Clean Catch Urine Culture - Preliminary Enterococcus Faecalis HIV negative a/p dermatomal zoster- can resume valtrex 1 g po tid to complete total 7 days now day #3/7 abnl lfts- improving substance use history- etoh detox Problem List - Problems (1) Shingles rash Code(s): B02.9 - ZOSTER WITHOUT COMPLICATIONS (2) Abnormal LFTs Code(s): R94.5 - ABNORMAL RESULTS OF LIVER FUNCTION STUDIES (3) Alcohol withdrawal Code(s): F10.239 - ALCOHOL DEPENDENCE WITH WITHDRAWAL, UNSPECIFIED Qualifiers: Complication of substance-induced condition: with unspecified complication Qualified Code(s): F10.239 - Alcohol dependence with withdrawal, unspecified
[2018-03-20] MEDS: valACYclovir HCL 500 MG TABLET (FP) PO SCH ×2 (14:00→21:19)
[2018-03-20] MEDS ORDERED: LORazepam 2 MG/ML SDV VIAL IM PRN (17:11)
[2018-03-20] MEDS: CALAMINE 8% TOPICAL LOTION 177 ML BOTTLE TP SCH (21:42)
[2018-03-20] MEDS ORDERED: OLANZapine 5 MG TABLET PO SCH (22:00)
[2018-03-21] MEDS: HEPARIN NA (PORCINE) 5,000 UNITS/ML 1ML VIAL SQ SCH ×2 (05:56→13:06)
[2018-03-21] MEDS: valACYclovir HCL 500 MG TABLET (FP) PO SCH ×2 (05:57→13:05)
[2018-03-21 06:54] LABS: BASO % 0.7 % (0-2.0); EOS % 2.8 % (0-4.5); HEMATOCRIT 34.5 % (35.4-49); HEMOGLOBIN 11.2 GM/dL (11.7-16.9); LYMPH % 43.3 % (8-40); MCH 29.7 pg (25.7-33.7); MCHC 32.5 g/dl (32.0-35.9); MEAN CELL VOLUME 91.4 fl (80-96); MEAN PLT VOLUME 9.1 fl (7.5-11.1); MONO % 19.8 % (3.8-10.2); NEUT % 33.4 % (42.8-82.8); PLATELET COUNT 177 K/MM3 (134-434); RBC 3.78 M/mm3 (4.00-5.60); RDW 13.7 % (11.9-15.9); WHITE BLOOD COUNT 3.1 K/mm3 (4.0-10.0)
[2018-03-21 07:27] LABS: ALBUMIN 3.5 g/dl (3.4-5.0); ALK PHOS 89 U/L (45-117); ANION GAP 5 MMOL/L (8-16); BILIRUBIN,TOTAL 0.5 mg/dL (0.2-1); BLOOD UREA NITROGEN 11 mg/dL (7-18); CHLORIDE 102 mmol/L (98-107); CO2 30 mmol/L (21-32); CREATININE 0.6 mg/dL (0.55-1.3); GLUCOSE,RANDOM 117 mg/dL (74-106); MAGNESIUM 1.8 mg/dL (1.8-2.4); POTASSIUM 4.3 mmol/L (3.5-5.1); SGOT/AST 133 U/L (15-37); SGPT/ALT 145 U/L (13-61); SODIUM 137 mmol/L (136-145); TOT PROT 7.6 g/dl (6.4-8.2)
[2018-03-21] MEDS: LORazepam 1 MG TABLET PO SCH (09:36)
[2018-03-21] MEDS: CALAMINE 8% TOPICAL LOTION 177 ML BOTTLE TP SCH (09:36)
[2018-03-21] MEDS: FOLIC ACID 1 MG TABLET (FP) PO SCH (09:36)
[2018-03-21] MEDS: MULTIVITAMINS (DAILY MVI) TABLET (FP) PO SCH (09:36)
[2018-03-21] MEDS: THIAMINE HCL 100 MG TABLET (FP) PO SCH (09:36)
[2018-03-21 10:24] VITALS: BP 128/87; PULSE 77; TEMP 98.4
[2018-03-21] MEDS ORDERED: chlordiazePOXIDE HCL 10 MG CAPSULE PO SCH (11:00)
[2018-03-21 11:06] LABS: ACANTHOCYTES 0; ANISOCYTOSIS 0; HELMET CELLS 0; HOWELL-JOLLY BODIES 0; MACROCYTOSIS 0; OVALOCYTE 0; PLATELET ESTIMATE NORMAL; ROULEAU 0; SICKELED CELLS 0; TARGET CELLS 0; TEAR DROP CELLS 0; TOXIC GRANULATION 0
--- NOTE | 2018-03-21 14:31 | DS ---
Physical Exam: HOSPITAL COURSE: Date of Admission:03/18/18 Date of Discharge: 03/21/18 Patient was not seen. Eloped prior to examination. Minutes to complete discharge: 10 Discharge Summary Reason For Visit: HERPES ZOSTER/ETOH WITHDRAWAL (ISOLATION [place] Condition: Stable - Instructions Disposition: ELOPED - Home Medications Comprehensive Discharge Medication List: Ambulatory Orders NK [No Known Home Medication] 03/18/18 This patient is new to me today: Yes Date on this admission: 03/21/18 Emergency Visit: Yes ED Registration Date: 03/18/18 Care time: The patient presented to the Emergency Department on the above date and was hospitalized for further evaluation of their emergent condition. Critical Care patient: No - Discharge Referral Referred to [facility] Med P.C.: No
[2018-03-22 00:07] LABS: HBSAG SCREEN Negative (Negative); HEP A AB, IGM Negative (Negative); HEP B CORE AB, TOT Positive (Negative)
== END 2018-03-21 14:24 | disposition left against medical advice (07) | DRG 381 ==
LOC: JER 21:38 → JERBED 03-18 05:50 → UNDOADMIN 03-18 06:18 → J4S 03-19 00:23
PROVIDERS: ADMIT Internal Medicine; ATTEND Nurse Practitioner Acute Care
PROC: HZ2ZZZZ Detoxification Services for Substance Abuse Treatment (ICD-10-PCS; principal; 2018-03-19)
DX: B02.9 Zoster without complications (principal); D72.819 Decreased white blood cell count, unspecified; F32.9 Major depressive disorder, single episode, unspecified; F17.210 Nicotine dependence, cigarettes, uncomplicated; F10.239 Alcohol dependence with withdrawal, unspecified; R94.5 Abnormal results of liver function studies; G47.00 Insomnia, unspecified; B95.2 Enterococcus as the cause of diseases classified elsewhere; B96.89 Other specified bacterial agents as the cause of diseases classified elsewhere; F20.89 Other schizophrenia
CPT/HCPCS: 36415; 71045-TC-FY; 76705-TC; 80048; 80053; 81003; 82550; 83735; 84100; 85025; 85027; 85610; 86704; 86706; 86708; 87086; 87186; 87340; 87389; 93005; 93010; 99285-25; J1644; J7030

== ENCOUNTER 2018-07-08 20:08 | Inpatient (IN) | payer OTHER ==
[2018-07-08 20:34] VITALS: BMI 22.6
--- NOTE | 2018-07-08 21:37 | HP ---
CIWA Score Nausea/Vomitin-No Nausea/No Vomiting Muscle Tremors: 1-None Visible, but [place] Anxiety: 4-Mod. Anxious/Guarded Agitation: 4-Moderately Restless Paroxysmal Sweats: 3 Orientation: 3-Disoriented Date>2 days Tacttile Disturbances: 1-Very Mild Itch/Numbness Auditory Disturbances: 2-Mild Harshness/Frighten Visual Disturbances: 0-None Headache: 3-Moderate CIWA-Ar Total Score: 21 - Admission Criteria [facility]ASAS Guidelines: Admission for Medically Managed Detox: Requires at least one of the followin. CIWA greater than 12 2. Seizures within the past 24 hours 3. Delirium tremens within the past 24 hours 4. Hallucinations within the past 24 hours 5. Acute intervention needed for co occurring medical disorder 6. Acute intervention needed for co occurring psychiatric disorder 7. Severe withdrawal that cannot be handled at a lower level of care (continued vomiting, continued diarrhea, abnormal vital signs) requiring intravenous medication and/or fluids 8. Patient presents the following: CIWA greater than 12 Admission Criteria Met: Admission criteria met Admission ROS [facility] Chief Complaint: HERE SEEKING DETOX FROM ALCOHOL W/ C/O WITHDRAWAL SX'S Allergies/Adverse Reactions: Allergies Allergy/AdvReac Type Severity Reaction Status Date / Time No Known Allergies Allergy Verified 07/08/18 21:07 History of Present Illness: 58 Y.O. MALE WITH EXTENSIVE HX/O ALCOHOLISM HERE FOR DETOX. CLIENT IS KNOWN TO THIS PROGRAM. SELF REFERRED TODAY WITH C/O WITHDRAWAL SX'S AND CONTINUES DRINKING BECAUSE OF THE WITHDRAWALS. CIWA 21. LAST HERE 03/2018. REPORTS LONGEST CLEAN TIME 8 MONTHS SELF SUSTAINED RELAPSING 5 YEARS AGO. DENIES ANY RECENT CLEAN TIME. DENIES HX/O SEIZURE, SI/HI. REPORTS AT TIME AUDITORY HALLUCINATION WHEN INTOXICATED. LIVES WITH FAMILY, SSI, DENIES LEGALS PMHX-DENIES PSYCH-DEPRESSION, CLAUSTROPHOBIA Exam Limitations: Intoxication (BUT IS A/O X3 AND MENTATING WELL) - Ebola screening Have you traveled outside of the country in the last 21 days: No Have you had contact with anyone from an Ebola affected area: No Have you been sick,other than usual withdrawal symptoms: No Do you have a fever: No - Review of Systems Constitutional: Chills, Loss of Appetite, Changes in sleep, Unintentional Wgt. Loss EENT: reports: Hearing Loss (DECREASED HEARING IN LEFT EAR), Dental Problems ( MISSING TEETH) Respiratory: reports: No Symptoms reported Cardiac: reports: No Symptoms Reported GI: reports: Constipated, Poor Appetite, Poor Fluid Intake : reports: No Symptoms Reported Musculoskeletal: reports: Back Pain, Joint Pain, Neck Pain Integumentary: reports: Flushing Neuro: reports: Headache, Tremors Endocrine: reports: No Symptoms Reported Hematology: reports: No Symptoms Reported Psychiatric: reports: Orientated x3, Depressed Other Systems: Reviewed and Negative Patient History - Patient Medical History Hx Anemia: No Hx Asthma: No Hx Chronic Obstructive Pulmonary Disease (COPD): No Hx Cancer: No Hx Cardiac Disorders: No Hx Congestive Heart Failure: No Hx Hypertension: No Hx Hypercholesterolemia: No Hx Pacemaker: No HX Cerebrovascular Accident: No Hx Seizures: No Hx Dementia: No Hx Diabetes: No Hx Gastrointestinal Disorders: No Hx Liver Disease: No Hx Genitourinary Disorders: No Hx Sexually Transmitted Disorders: No Hx Renal Disease (ESRD): No Hx Thyroid Disease: No Hx Human Immunodeficiency Virus (HIV): No Hx Hepatitis C: No Hx Depression: Yes Hx Suicide Attempt: No Hx Bipolar Disorder: No Hx Schizophrenia: Yes - Patient Surgical History Past Surgical History: Yes Hx Neurologic Surgery: No Hx Cataract Extraction: No Hx Cardiac Surgery: No Hx Lung Surgery: No Hx Breast Surgery: No Hx Breast Biopsy: No Hx Abdominal Surgery: No Hx Appendectomy: No Hx Cholecystectomy: No Hx Genitourinary Surgery: No Hx Section: No Hx Orthopedic Surgery: Yes (LT KNEE SX) Anesthesia Reaction: No - PPD History Previous Implant?: Yes Documented Results: Negative w/o proof Implanted On Prior [facility] Admission?: No Results: 02/25/17 NEG CX PPD to be Administered?: No - Smoking Cessation Smoking history: Current every day smoker Have you smoked in the past 12 months: Yes Aproximately how many cigarettes per day: 10 Cigars Per Day: 10 Hx Chewing Tobacco Use: No Initiated information on smoking cessation: Yes 'Breaking Loose' booklet given: 07/08/18 - Substance & Tx. History Hx Alcohol Use: Yes Hx Substance Use: Yes Substance Use Type: Alcohol, Marijuana Hx Substance Use Treatment: No ([facility]) - Substances Abused Alcohol Route: Oral Frequency: Daily Amount used: 1 PINT VODKA - 12 PACK BEER Age of first use: 7 Date of Last Use: 07/08/18 Marijuana/Hashish Route: Smoking Frequency: Daily Amount used: 5 BAGS Age of first use: 20 Date of Last Use: 07/08/18 Family Disease History - Family Disease History Family Disease History: Diabetes: Mother (ALCOHOL AND DRUG ABUSE), Sister, Other : Grandparent (ALCOHOL AND DRUG abuse), Father (ALCOHOL AND DRUG ABUSE), Mother , Brother (alcohol,dsa) Admission Physical Exam [facility] - Vital Signs Vital Signs: Vital Signs - 24 hr 07/08/18 20:33 Temperature 98.7 F Pulse Rate 93 H Respiratory 18 Rate Blood Pressure 128/81 - Physical General Appearance: Yes: Appropriately Dressed, Alcohol on Breath, Intoxicated ( AWAKE ALERT NAD, MENTATING AND CONVERSING WELL), Tremorous (FELT), Other ( MALODUROUS) HEENTM: Yes: EOMI (CANNOT COMPLETE), Normocephalic, Normal Voice, MISSY, Pharynx Normal, Other (MISSING TEETH) Respiratory: Yes: Chest Non-Tender, Lungs Clear, Normal Breath Sounds, No Respiratory Distress, No Accessory Muscle Use Neck: Yes: No masses,lesions,Nodules, Supple, Trachea in good position Breast: Yes: Breast Exam Deferred Cardiology: Yes: Regular Rhythm, S1, S2, Tachycardia Abdominal: Yes: Normal Bowel Sounds, Non Tender, Flat, Soft Genitourinary: Yes: Other (NO C/O) Back: Yes: Normal Inspection Musculoskeletal: Yes: full range of Motion, Gait Steady Extremities: Yes: Normal Capillary Refill, Normal Range of Motion, Non-Tender, Tremors (FELT) Neurological: Yes: Alert, Motor Strength 5/5 Integumentary: Yes: Dry, Warm (FLUSHED), Other (SCATTERED ABRASIONS FRO ITCHING OF SKIN NOTED TO ARMS AND LEGS) Lymphatic: Yes: Within Normal Limits - Diagnostic (1) Alcohol dependence with uncomplicated withdrawal Current Visit: Yes Status: Acute (2) Alcohol-induced mood disorder Current Visit: Yes Status: Chronic (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 (4) cannabis dependence Current Visit: Yes Status: Chronic (5) Nicotine dependence Current Visit: Yes Status: Chronic Qualifiers: Nicotine product type: cigarettes Substance use status: uncomplicated Qualified Code(s): F17.210 - Nicotine dependence, cigarettes, uncomplicated (6) Positive PPD, treated Current Visit: Yes Status: Chronic Cleared for Admission [facility] - Detox or Rehab [facility] Level of Care: Medically Managed Detox Regimen/Protocol: Librium Claeared for Rehab Admission: No [facility] Breath Alcohol Content Breath Alcohol Content: 0.269 Urine Drug Screen - Results Drug Screen Negative: No Urine Drug Screen Results: THC-Marijuana
[2018-07-08] MEDS ORDERED: MAG HYDROX/AL HYDROX/SIMETH 30 ML UNIT-DOSE CUP PO PRN (21:57)
[2018-07-08] MEDS ORDERED: MAGNESIUM CITRATE 300 ML BOTTLE PO PRN (21:57)
[2018-07-08] MEDS ORDERED: chlordiazePOXIDE HCL 25 MG CAPSULE PO PRN (21:57)
[2018-07-08] MEDS ORDERED: MENTHOL/PHENOL 1 EACH UD MM PRN (21:57)
[2018-07-08] MEDS ORDERED: hydrOXYzine PAMOATE 50 MG CAPSULE (FP) PO PRN (21:57)
[2018-07-08] MEDS ORDERED: P-EPHED 60MG/TRIPROLIDI 2.5MG TABLET PO PRN (21:57)
[2018-07-08] MEDS ORDERED: NICOTINE POLACRILEX 2 MG GUM BC PRN (21:57)
[2018-07-08] MEDS ORDERED: LOPERAMIDE HCL 2 MG CAPSULE PO PRN (21:57)
[2018-07-08] MEDS ORDERED: MAGNESIUM HYDROX 2400MG/30ML ORAL SUSPENSION 30 ML CUP PO PRN (21:57)
[2018-07-08] MEDS ORDERED: guaiFENesin/D-METHORPHAN HB 10 ML UNIT-DOSE CUPS PO PRN (21:57)
[2018-07-09] MEDS: chlordiazePOXIDE HCL 25 MG CAPSULE PO SCH ×5 (00:22→22:50)
[2018-07-09] MEDS: THIAMINE HCL 100 MG TABLET (FP) PO SCH ×2 (00:26→22:50)
[2018-07-09] MEDS: IBUPROFEN 400 MG TABLET (FP) PO PRN ×2 (00:32→22:53)
[2018-07-09] MEDS: NICOTINE 14 MG/24 HOURS TOPICAL PATCH TD SCH (10:31)
[2018-07-09] MEDS: PRENATAL VITAMINS W/ FOLIC ACID TABLET (FP) PO SCH (10:31)
[2018-07-09 11:18] LABS: ALBUMIN 3.2 g/dl (3.4-5.0); ALK PHOS 74 U/L (45-117); ANION GAP 11 MMOL/L (8-16); BILIRUBIN,TOTAL 0.5 mg/dL (0.2-1); BLOOD UREA NITROGEN 10 mg/dL (7-18); CALCIUM 8.8 mg/dL (8.5-10.1); CHLORIDE 104 mmol/L (98-107); CO2 25 mmol/L (21-32); CREATININE 0.7 mg/dL (0.55-1.3); GLUCOSE,RANDOM 79 mg/dL (74-106); POTASSIUM 3.8 mmol/L (3.5-5.1); SGOT/AST 31 U/L (15-37); SGPT/ALT 26 U/L (13-61); SODIUM 140 mmol/L (136-145); TOT PROT 6.6 g/dl (6.4-8.2)
[2018-07-09 11:27] LABS: HEMATOCRIT 32.6 % (35.4-49); HEMOGLOBIN 11.1 GM/dL (11.7-16.9); MCH 30.9 pg (25.7-33.7); MCHC 34.1 g/dl (32.0-35.9); MEAN CELL VOLUME 90.6 fl (80-96); MEAN PLT VOLUME 9.2 fl (7.5-11.1); PLATELET COUNT 174 K/MM3 (134-434); RDW 14.2 % (11.9-15.9); WHITE BLOOD COUNT 2.2 K/mm3 (4.0-10.0)
[2018-07-09 11:28] LABS: URINE APPEARANCE CLEAR; URINE BILIRUBIN NEGATIVE (<2.0 mg/dL); URINE COLOR STRAW; URINE GLUCOSE (UA) NEGATIVE (NEGATIVE); URINE KETONE NEGATIVE (NEGATIVE); URINE LEUK ESTERASE NEGATIVE (NEGATIVE); URINE NITRITE NEGATIVE (NEGATIVE); URINE PROTEIN NEGATIVE (NEGATIVE); URINE UROBILINOGEN NEGATIVE mg/dL (0.2-1.0)
--- NOTE | 2018-07-09 12:43 | PN ---
S CIWA - CIWA Score Nausea/Vomitin-Mild Nausea/No Vomiting Muscle Tremors: 4-Moderate,w/Arms Extend Anxiety: 4-Mod. Anxious/Guarded Agitation: 4-Moderately Restless Paroxysmal Sweats: 3 Orientation: 0-Oriented Tacttile Disturbances: 1-Very Mild Itch/Numbness Auditory Disturbances: 0-None Visual Disturbances: 0-None Headache: 0-None Present CIWA-Ar Total Score: 17 [facility] Progress Note (SOAP) Subjective: Interrupted sleep, sweating, body aches Objective: 07/09/18 12:42 Last Vital Signs Temp Pulse Resp BP Pulse Ox 97.0 F L 79 18 143/84 07/09/18 10:07 07/09/18 10:07 07/09/18 10:07 07/09/18 10:07 Laboratory Tests 07/09/18 07/09/18 07/09/18 07:20 07:20 08:20 WBC 2.2 L RBC 3.60 L Hgb 11.1 L Hct 32.6 L MCV 90.6 MCH 30.9 MCHC 34.1 RDW 14.2 Plt Count 174 MPV 9.2 Sodium 140 Potassium 3.8 Chloride 104 Carbon Dioxide 25 Anion Gap 11 BUN 10 Creatinine 0.7 Creat Clearance w eGFR > 60 Random Glucose 79 Calcium 8.8 Total Bilirubin 0.5 AST 31 ALT 26 Alkaline Phosphatase 74 Total Protein 6.6 Albumin 3.2 L Urine Color Straw Urine Appearance Clear Urine pH 6.0 Ur Specific [place] 1.002 L Urine Protein Negative Urine Glucose (UA) Negative Urine Ketones Negative Urine Blood Negative Urine Nitrite Negative Urine Bilirubin Negative Urine Urobilinogen Negative Ur Leukocyte Esterase Negative Labs reviewed: wbc 2.2, h/h 11.1/32.6 Assessment: 07/09/18 12:42 Withdrawal symptoms Noted with leukopenia and mild anemia Plan: Continue detox Encouraged PO water intake Leukopenia: chronic as per chart review; asymptomatic, encouraged good hand hygiene (washing hands with soap and water after using bathroom and before eating), follow up with PCP for monitoring. Anemia, mild: could be r/t substance dependence, follow up with PCP for monitoring
[2018-07-09] MEDS: MELATONIN 5 MG TABLETS PO PRN (22:51)
[2018-07-10] MEDS: chlordiazePOXIDE HCL 25 MG CAPSULE PO SCH ×3 (05:24→18:43)
[2018-07-10] MEDS: ACETAMINOPHEN 325 MG TABLET (FP) PO PRN ×2 (05:25→10:21)
[2018-07-10] MEDS: NICOTINE 14 MG/24 HOURS TOPICAL PATCH TD SCH (10:20)
[2018-07-10] MEDS: PRENATAL VITAMINS W/ FOLIC ACID TABLET (FP) PO SCH (10:21)
--- NOTE | 2018-07-10 13:12 | PN ---
[facility] CIWA - CIWA Score Nausea/Vomitin-No Nausea/No Vomiting Muscle Tremors: None Anxiety: 4-Mod. Anxious/Guarded Agitation: 2 Paroxysmal Sweats: No Perspiration Orientation: 2-Disoriented Date<2 days Tacttile Disturbances: 2-Mild Itch/Numbness/Burn Auditory Disturbances: 1-Very Mild Visual Disturbances: 2-Mild Sensitivity Headache: 0-None Present CIWA-Ar Total Score: 13 S Progress Note (SOAP) Subjective: Interrupted Sleep, Body Aches, Anxious. Objective: PATIENT A & O X 2 (UNCERTAIN ABOUT CURRENT DAY / DATE). PATIENT OBSERVED AMBULATING ON UNIT. IN NO ACUTE DISTRESS. 07/10/18 13:09 Vital Signs Temperature 97.0 F L 07/10/18 09:19 Pulse Rate 54 L 07/10/18 09:19 Respiratory Rate 16 07/10/18 09:19 Blood Pressure 145/94 07/10/18 09:19 O2 Sat by Pulse Oximetry (%) Laboratory Tests 07/09/18 07/09/18 07/09/18 07:20 07:20 07:20 WBC 2.2 L RBC 3.60 L Hgb 11.1 L Hct 32.6 L MCV 90.6 MCH 30.9 MCHC 34.1 RDW 14.2 Plt Count 174 MPV 9.2 Sodium 140 Potassium 3.8 Chloride 104 Carbon Dioxide 25 Anion Gap 11 BUN 10 Creatinine 0.7 Creat Clearance w eGFR > 60 Random Glucose 79 Calcium 8.8 Total Bilirubin 0.5 AST 31 ALT 26 Alkaline Phosphatase 74 Total Protein 6.6 Albumin 3.2 L Urine Color Urine Appearance Urine pH Ur Specific [place] Urine Protein Urine Glucose (UA) Urine Ketones Urine Blood Urine Nitrite Urine Bilirubin Urine Urobilinogen Ur Leukocyte Esterase RPR Titer Nonreactive 07/09/18 08:20 WBC RBC Hgb Hct MCV MCH MCHC RDW Plt Count MPV Sodium Potassium Chloride Carbon Dioxide Anion Gap BUN Creatinine Creat Clearance w eGFR Random Glucose Calcium Total Bilirubin AST ALT Alkaline Phosphatase Total Protein Albumin Urine Color Straw Urine Appearance Clear Urine pH 6.0 Ur Specific [place] 1.002 L Urine Protein Negative Urine Glucose (UA) Negative Urine Ketones Negative Urine Blood Negative Urine Nitrite Negative Urine Bilirubin Negative Urine Urobilinogen Negative Ur Leukocyte Esterase Negative RPR Titer LABS NOTED. PATIENT HAS HAD LOW WBC LEVEL AND HAS BEEN ANEMIA ON PREVIOUS ADMISSIONS. 07/10/18 13:10 Assessment: 07/10/18 13:09 WITHDRAWAL SYMPTOMS. LEUKOPENIA. ANEMIA. ELEVATED BLOOD PRESSURE. 07/10/18 13:12 Plan: CONTINUE DETOX. INCREASE DAILY PO FLUID INTAKE. CONTINUE TO MONITOR BLOOD PRESSURE.
[2018-07-10] MEDS: CARBAMIDE PEROXIDE 6.5% OTIC 15 ML BOTTLE AS SCH ×2 (14:44→22:01)
[2018-07-10] MEDS: METHYL SALICYLATE/MENTHOL OINT 30 GM TUBE TP SCH ×2 (14:45→22:04)
[2018-07-10] MEDS: THIAMINE HCL 100 MG TABLET (FP) PO SCH (22:01)
[2018-07-10] MEDS: chlordiazePOXIDE 5 MG CAPSULE PO SCH (22:01)
[2018-07-10] MEDS: MELATONIN 5 MG TABLETS PO PRN (22:04)
[2018-07-11] MEDS: chlordiazePOXIDE 5 MG CAPSULE PO SCH ×3 (05:33→17:41)
[2018-07-11] MEDS: IBUPROFEN 400 MG TABLET (FP) PO PRN (05:34)
[2018-07-11] MEDS: METHYL SALICYLATE/MENTHOL OINT 30 GM TUBE TP SCH ×2 (10:34→22:09)
[2018-07-11] MEDS: CARBAMIDE PEROXIDE 6.5% OTIC 15 ML BOTTLE AS SCH ×2 (10:35→22:09)
[2018-07-11] MEDS: NICOTINE 14 MG/24 HOURS TOPICAL PATCH TD SCH (10:36)
[2018-07-11] MEDS: PRENATAL VITAMINS W/ FOLIC ACID TABLET (FP) PO SCH (10:36)
[2018-07-11] MEDS: ACETAMINOPHEN 325 MG TABLET (FP) PO PRN ×2 (10:36→17:42)
--- NOTE | 2018-07-11 13:14 | PN ---
B[facility] Progress Note (SOAP) Subjective: Body Aches. Objective: PATIENT A & O X 3, OBSERVED AMBULATING ON UNIT. IN NO ACUTE DISTRESS. 07/11/18 13:11 Vital Signs Temperature 97.9 F 07/11/18 09:03 Pulse Rate 71 07/11/18 09:03 Respiratory Rate 18 07/11/18 09:03 Blood Pressure 123/77 07/11/18 09:03 O2 Sat by Pulse Oximetry (%) Laboratory Tests 07/09/18 07/09/18 07/09/18 07:20 07:20 07:20 WBC 2.2 L RBC 3.60 L Hgb 11.1 L Hct 32.6 L MCV 90.6 MCH 30.9 MCHC 34.1 RDW 14.2 Plt Count 174 MPV 9.2 Sodium 140 Potassium 3.8 Chloride 104 Carbon Dioxide 25 Anion Gap 11 BUN 10 Creatinine 0.7 Creat Clearance w eGFR > 60 Random Glucose 79 Calcium 8.8 Total Bilirubin 0.5 AST 31 ALT 26 Alkaline Phosphatase 74 Total Protein 6.6 Albumin 3.2 L Urine Color Urine Appearance Urine pH Ur Specific [place] Urine Protein Urine Glucose (UA) Urine Ketones Urine Blood Urine Nitrite Urine Bilirubin Urine Urobilinogen Ur Leukocyte Esterase RPR Titer Nonreactive 07/09/18 08:20 WBC RBC Hgb Hct MCV MCH MCHC RDW Plt Count MPV Sodium Potassium Chloride Carbon Dioxide Anion Gap BUN Creatinine Creat Clearance w eGFR Random Glucose Calcium Total Bilirubin AST ALT Alkaline Phosphatase Total Protein Albumin Urine Color Straw Urine Appearance Clear Urine pH 6.0 Ur Specific [place] 1.002 L Urine Protein Negative Urine Glucose (UA) Negative Urine Ketones Negative Urine Blood Negative Urine Nitrite Negative Urine Bilirubin Negative Urine Urobilinogen Negative Ur Leukocyte Esterase Negative RPR Titer LABS NOTED. Assessment: 07/11/18 13:12 WITHDRAWAL SYMPTOMS. LEUKOPENIA. ANEMIA. Plan: CONTINUED ETOX. INCREASE DAILY PO FLUID INTAKE. PATIENT CURRENTLY RECEIVING DAILY MVI CONTAINING B VITAMINS AND IRON WHILE ADMITTED FOR DETOX. PATIENT SCHEDULED FOR D/C TOMORROW.
[2018-07-11 20:55] VITALS: TEMP 97.9
[2018-07-11] MEDS: chlordiazePOXIDE HCL 10 MG CAPSULE PO SCH (22:09)
[2018-07-11] MEDS: THIAMINE HCL 100 MG TABLET (FP) PO SCH (22:09)
[2018-07-11] MEDS: MELATONIN 5 MG TABLETS PO PRN (22:10)
[2018-07-12] MEDS: chlordiazePOXIDE HCL 10 MG CAPSULE PO SCH (06:22)
[2018-07-12 07:43] VITALS: BP 147/75; PULSE 57
--- NOTE | 2018-07-12 08:32 | DS ---
[facility] Detox Discharge Summary Admission Date: 07/08/18 Discharge Date: 07/12/18 - History Present History: Alcohol Dependence - Physical Exam Results Vital Signs: Vital Signs Temperature 97.9 F 07/12/18 07:43 Pulse Rate 57 L 07/12/18 07:43 Respiratory Rate 18 07/12/18 07:43 Blood Pressure 147/75 07/12/18 07:43 O2 Sat by Pulse Oximetry (%) - Treatment Hospital Course: Detox Protocol Followed, Detoxed Safely, Responded well, Discharged Condition Good, Rehab Referral Accepted - Medication Discharge Medications: Ambulatory Orders NK [No Known Home Medication] 03/18/18 - Diagnosis (1) Alcohol dependence with uncomplicated withdrawal Current Visit: Yes Status: Chronic (2) Alcohol-induced mood disorder Current Visit: Yes Status: Chronic (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 (4) Depression Current Visit: Yes Status: Chronic Qualifiers: Depression Type: unspecified Qualified Code(s): F32.9 - Major depressive disorder, single episode, unspecified (5) Nicotine dependence Current Visit: Yes Status: Chronic Qualifiers: Nicotine product type: cigarettes Substance use status: uncomplicated Qualified Code(s): F17.210 - Nicotine dependence, cigarettes, uncomplicated (6) Positive PPD, treated Current Visit: Yes Status: Chronic (7) cannabis dependence Current Visit: Yes Status: Chronic (8) Drug-induced mood disorder Current Visit: No Status: Acute (9) Substance-induced sleep disorder Current Visit: No Status: Acute (10) Syncope Current Visit: No Status: Acute (11) Weight decreased Current Visit: No Status: Acute (12) Anxiety and depression Current Visit: No Status: Chronic (13) Cocaine dependence Current Visit: Yes Status: Chronic (14) Insomnia Current Visit: No Status: Chronic Qualifiers: Insomnia type: unspecified Qualified Code(s): G47.00 - Insomnia, unspecified (15) Knee pain Current Visit: No Status: Chronic Qualifiers: Chronicity: chronic Laterality: bilateral Qualified Code(s): M25.561 - Pain in right knee; M25.562 - Pain in left knee; G89.29 - Other chronic pain (16) Non compliance w medication regimen Current Visit: No Status: Chronic (17) Schizoaffective disorder Current Visit: No Status: Chronic (18) Substance induced mood disorder Current Visit: No Status: Chronic - AMA Did Patient Leave Against Medical Advice: No (going home)
== END 2018-07-12 07:50 | disposition home or self-care (01) | DRG 774 ==
LOC: YASAS 20:08 → Y6N 21:30
PROVIDERS: ADMIT Neuromusculoskeletal Medicine & OMM; ATTEND Neuromusculoskeletal Medicine & OMM
PROC: HZ2ZZZZ Detoxification Services for Substance Abuse Treatment (ICD-10-PCS; principal; 2018-07-08)
DX: F10.230 Alcohol dependence with withdrawal, uncomplicated (principal); F10.24 Alcohol dependence with alcohol-induced mood disorder; F10.282 Alcohol dependence with alcohol-induced sleep disorder; F14.20 Cocaine dependence, uncomplicated; F12.20 Cannabis dependence, uncomplicated; F17.210 Nicotine dependence, cigarettes, uncomplicated; F32.9 Major depressive disorder, single episode, unspecified; F19.24 Other psychoactive substance dependence with psychoactive substance-induced mood disorder; F19.282 Other psychoactive substance dependence with psychoactive substance-induced sleep disorder; F41.9 Anxiety disorder, unspecified; F25.9 Schizoaffective disorder, unspecified; R76.11 Nonspecific reaction to tuberculin skin test without active tuberculosis; G47.00 Insomnia, unspecified; D72.819 Decreased white blood cell count, unspecified; M25.561 Pain in right knee; M25.562 Pain in left knee; R00.0 Tachycardia, unspecified; D64.9 Anemia, unspecified; R03.0 Elevated blood-pressure reading, without diagnosis of hypertension; Z91.14 Patient's other noncompliance with medication regimen
CPT/HCPCS: 36415; 71046-TC-FY; 80053; 81003; 85027; 86593

== ENCOUNTER 2018-07-20 20:45 | Emergency (ER) | payer OTHER ==
[2018-07-20 21:01] VITALS: BP 159/78; PULSE 87; TEMP 97.6; BMI 28.3
--- NOTE | 2018-07-20 21:44 | PDOC ---
History of Present Illness - General Chief Complaint: Alcohol intoxication Stated Complaint: INTOXICATION Time Seen by Provider: 07/20/18 21:04 History Source: Patient Exam Limitations: No Limitations Past History - Past Medical History Allergies/Adverse Reactions: Allergies Allergy/AdvReac Type Severity Reaction Status Date / Time No Known Allergies Allergy Verified 07/20/18 20:59 Home Medications: Ambulatory Orders NK [No Known Home Medication] 03/18/18 Anemia: No Asthma: No Cancer: No Cardiac Disorders: No CVA: No COPD: No CHF: No Dementia: No Diabetes: No GI Disorders: No Disorders: No HTN: No Hypercholesterolemia: No Kidney Stones: No Liver Disease: No Psychiatric Problems: Yes (Depression, schizophrenia) Seizures: No Thyroid Disease: No - Surgical History Abdominal Surgery: No Appendectomy: No Cardiac Surgery: No Cholecystectomy: No Lung Surgery: No Neurologic Surgery: No Orthopedic Surgery: Yes (LT KNEE SX) - Reproductive History Testicular Surgery: No - Immunization History Immunization Up to Date: Yes - Suicide/Smoking/Psychosocial Hx Smoking Status: Yes Smoking History: Unknown if ever smoked Have you smoked in the past 12 months: No Number of Cigarettes Smoked Daily: 10 Cigars Per Day: 10 Information on smoking cessation initiated: No 'Breaking Loose' booklet given: 07/08/18 Hx Alcohol Use: Yes Drug/Substance Use Hx: No Substance Use Type: Alcohol, Marijuana Hx Substance Use Treatment: No ([facility]) *Physical Exam - Vital Signs Last Vital Signs Temp Pulse Resp BP Pulse Ox 97.6 F 87 18 159/78 97 07/20/18 20:59 07/20/18 20:59 07/20/18 20:59 07/20/18 20:59 07/20/18 20:59 - Physical Exam General Appearance: Yes: Alcohol on Breath, Intoxicated. No: Apparent Distress HEENT: positive: Other (no head trauma) Neck: positive: Supple Respiratory/Chest: positive: Lungs Clear. negative: Respiratory Distress Cardiovascular: positive: Regular Rhythm, Regular Rate Gastrointestinal/Abdominal: positive: Normal Bowel Sounds, Soft. negative: Tender, Distended, Guarding, Rebound Musculoskeletal: positive: Other (small abrasion to L thumb, no swelling or deformity to extremities) Moderate Sedation - Procedure Monitoring Vital Signs: Procedure Monitoring Vital Signs Temperature 97.6 F 07/20/18 20:59 Pulse Rate 87 07/20/18 20:59 Respiratory Rate 18 07/20/18 20:59 Blood Pressure 159/78 07/20/18 20:59 O2 Sat by Pulse Oximetry (%) 97 07/20/18 20:59 Medical Decision Making - Medical Decision Making 58 y/o M with hx of substance abuse, alcohol abuse, DM, schizophrenia BIBEMS for alcohol intoxication. Patient with small abrasion to L thumb during transport with EMS. Patient himself denies any trauma. Endorses he has been drinking since morning. Denies sob, cp, abd pain, n/v. Alcohol intox -No evidence of trauma -No evidence of withdrawal 07/20/18 21:44 Patient clinically sober, ambulating around ED with steady gait Stable for d/c 07/21/18 04:09 *DC/Admit/Observation/Transfer Diagnosis at time of Disposition: Alcohol intoxication Qualifiers: Complication of substance-induced condition: uncomplicated Qualified Code(s): F10.920 - Alcohol use, unspecified with intoxication, uncomplicated - Discharge Dispostion Disposition: HOME Condition at time of disposition: Stable Decision to Admit order: No - Referrals Referrals: Mayur Milian MD [Primary Care Provider] - - Patient Instructions Printed Discharge Instructions: DI for Alcohol Abuse - Post Discharge Activity
== END 2018-07-21 04:29 | disposition home or self-care (01) ==
LOC: JER 20:45
DX: F10.120 Alcohol abuse with intoxication, uncomplicated (principal); S60.312A Abrasion of left thumb, initial encounter; X58.XXXA Exposure to other specified factors, initial encounter; Y93.89 Activity, other specified; Y92.818 Other transport vehicle as the place of occurrence of the external cause; Y99.8 Other external cause status; F20.9 Schizophrenia, unspecified; F19.10 Other psychoactive substance abuse, uncomplicated; Y90.9 Presence of alcohol in blood, level not specified
CPT/HCPCS: 99281-25

== ENCOUNTER 2018-08-03 21:16 | Emergency (ER) | payer OTHER ==
[2018-08-03 21:26] VITALS: BP 152/87; PULSE 82; TEMP 98; BMI 28.2
--- NOTE | 2018-08-04 02:17 | PDOC ---
History of Present Illness - General Chief Complaint: Alcohol intoxication Stated Complaint: INTOX Time Seen by Provider: 08/04/18 01:55 History Source: Patient Exam Limitations: Clinical Condition - History of Present Illness Initial Comments: 08/04/18 02:24 Patient with history of alcohol abuse and heroin abuse present with complaint of alcohol intoxication and requesting detox. Patient reported drinking a sixpack of beer prior to arriving. Patient reported he always drinks 2 bottles of vodka a day and sixpack of beer. Patient wants to quit alcohol and requests help to detox center.Denies any complains Timing/Duration: 24 hours Past History - Past Medical History Allergies/Adverse Reactions: Allergies Allergy/AdvReac Type Severity Reaction Status Date / Time No Known Allergies Allergy Verified 08/03/18 21:26 Home Medications: Ambulatory Orders NK [No Known Home Medication] 03/18/18 Anemia: No Asthma: No Cancer: No Cardiac Disorders: No CVA: No COPD: No CHF: No Dementia: No Diabetes: No GI Disorders: No Disorders: No HTN: No Hypercholesterolemia: No Kidney Stones: No Liver Disease: No Psychiatric Problems: Yes (Depression, schizophrenia) Seizures: No Thyroid Disease: No - Surgical History Abdominal Surgery: No Appendectomy: No Cardiac Surgery: No Cholecystectomy: No Lung Surgery: No Neurologic Surgery: No Orthopedic Surgery: Yes (LT KNEE SX) - Reproductive History Testicular Surgery: No - Immunization History Immunization Up to Date: Yes - Suicide/Smoking/Psychosocial Hx Smoking Status: Yes Smoking History: Unknown if ever smoked Have you smoked in the past 12 months: No Number of Cigarettes Smoked Daily: 10 Cigars Per Day: 10 Information on smoking cessation initiated: No 'Breaking Loose' booklet given: 07/08/18 Hx Alcohol Use: Yes Drug/Substance Use Hx: No Substance Use Type: Alcohol, Marijuana Hx Substance Use Treatment: No ([facility]) Review of Systems - Review of Systems Able to Perform ROS?: Yes Is the patient limited Yi proficient: No Constitutional: No: Malaise, Weakness HEENTM: No: Blurred Vision, Recent change in vision, Double Vision Respiratory: No: Symptoms reported Cardiac (ROS): No: Symptoms Reported, See HPI, Chest Pain, Edema, Irregular Heart Rate, Lightheadedness, Palpitations, Syncope, Chest Tightness, Other ABD/GI: No: Nausea, Vomiting Neurological: No: Headache, Weakness, Dizziness All Other Systems: Reviewed and Negative *Physical Exam - Vital Signs Last Vital Signs Temp Pulse Resp BP Pulse Ox 98.0 F 82 16 152/87 100 08/03/18 21:24 08/03/18 21:24 08/03/18 21:24 08/03/18 21:24 08/03/18 21:24 - Physical Exam General Appearance: Yes: Nourished, Appropriately Dressed. No: Apparent Distress HEENT: positive: Normal ENT Inspection Neck: positive: Supple Respiratory/Chest: positive: Lungs Clear, Normal Breath Sounds. negative: Chest Tender, Respiratory Distress, Accessory Muscle Use Cardiovascular: positive: Regular Rhythm, Regular Rate. negative: Murmur Gastrointestinal/Abdominal: positive: Normal Bowel Sounds, Flat. negative: Tender Musculoskeletal: positive: Normal Inspection Extremity: positive: Normal Inspection Integumentary: positive: Normal Color Neurologic: positive: Fully Oriented, Alert, Normal Mood/Affect Moderate Sedation - Procedure Monitoring Vital Signs: Procedure Monitoring Vital Signs Temperature 98.0 F 08/03/18 21:24 Pulse Rate 82 08/03/18 21:24 Respiratory Rate 16 08/03/18 21:24 Blood Pressure 152/87 08/03/18 21:24 O2 Sat by Pulse Oximetry (%) 100 08/03/18 21:24 Medical Decision Making - Medical Decision Making 08/04/18 02:33 Patient with history of alcohol abuse and heroin abuse present with complaint of alcohol intoxication and requesting detox. Patient reported drinking a sixpack of beer prior to arriving. Denies any complains. Normal clinical exam. No evidence of alcohol withdrawal on exam. Call made to detox center will request to have U tox and blood alcohol level done prior to transfer to detox center. Blood alcohol level and U tox lab ordered 08/04/18 04:27 blood alcohol level 222. Patient is completely asymptomatic and wants to go to detox sent. [facility] detox [facility] request patient to be medicated with Librium prior to transfer to [facility] even though patient is asymptomatic. Will oblige to the request and medicate patient with Librium 50mg and transfer to [facility] after 30mins *DC/Admit/Observation/Transfer Diagnosis at time of Disposition: Alcohol intoxication Qualifiers: Complication of substance-induced condition: uncomplicated Qualified Code(s): F10.920 - Alcohol use, unspecified with intoxication, uncomplicated - Discharge Dispostion Disposition: TRANSFER ACUTE CARE/OTHER HOSP Condition at time of disposition: Stable Decision to Admit order: No - Referrals Referrals: Cristiano Lou MD [Staff Physician] - - Patient Instructions Printed Discharge Instructions: DI for Alcohol Abuse Additional Instructions: Go to [facility] for alcohol detox - Post Discharge Activity - Transfer to Acute Care Facility Receiving Facility: Other hosp. not listed Transfer comment: 08/04/18 04:31 Transfer to [facility] for detox
--- NOTE | 2018-08-04 02:51 | PDOC ---
*Physical Exam - Vital Signs Last Vital Signs Temp Pulse Resp BP Pulse Ox 98.0 F 82 16 152/87 100 08/03/18 21:24 08/03/18 21:24 08/03/18 21:24 08/03/18 21:24 08/03/18 21:24 Medical Decision Making - Medical Decision Making 08/04/18 02:51 Pt seen by the Advanced Practice Provider under my direct supervision Ancillary studies reviewed I agree with plan as outlined by the Advanced Practice Provider JAMES Higgnis *DC/Admit/Observation/Transfer Diagnosis at time of Disposition: Alcohol intoxication Qualifiers: Complication of substance-induced condition: uncomplicated Qualified Code(s): F10.920 - Alcohol use, unspecified with intoxication, uncomplicated - Discharge Dispostion Disposition: HOME Condition at time of disposition: Stable - Referrals - Patient Instructions Printed Discharge Instructions: DI for Alcohol Abuse - Post Discharge Activity
[2018-08-04] MEDS ORDERED: chlordiazePOXIDE HCL 25 MG CAPSULE PO ONE (04:31)
[2018-08-04] MEDS ORDERED: chlordiazePOXIDE HCL 25 MG CAPSULE ONE (04:43)
[2018-08-04 08:39] LABS: COCAINE, UR NEGATIVE ng/ml (CUTOFF=300); METHADONE, UR NEGATIVE ng/ml (CUTOFF=300); OPIATES, URI NEGATIVE ng/ml (CUTOFF=300); PHENCYCLIDINE,URINE NEGATIVE ng/ml (CUTOFF=25); URINE AMPHETAMINES NEGATIVE ng/ml (CUTOFF=500); URINE BARBITURATES NEGATIVE ng/ml (CUTOFF=200)
[2018-08-04 11:10] LABS: URINE BENZODIAZEPINES POSITIVE ng/ml (CUTOFF=200)
== END 2018-08-04 05:41 | disposition short-term general hospital (02) ==
LOC: JER 21:16
DX: F10.120 Alcohol abuse with intoxication, uncomplicated (principal); Y90.7 Blood alcohol level of 200-239 mg/100 ml; F11.10 Opioid abuse, uncomplicated; F32.9 Major depressive disorder, single episode, unspecified; F20.9 Schizophrenia, unspecified
CPT/HCPCS: 36415; 80307; 99281-25

== ENCOUNTER 2018-08-04 08:39 | Inpatient (IN) | payer OTHER ==
[2018-08-04 09:01] VITALS: BMI 21.7
--- NOTE | 2018-08-04 10:19 | HP ---
CIWA Score Nausea/Vomitin Muscle Tremors: 2 Anxiety: 2 Agitation: 2 Paroxysmal Sweats: 1-Minimal Palms Moist Orientation: 0-Oriented Tacttile Disturbances: 1-Very Mild Itch/Numbness Auditory Disturbances: 1-Very Mild Visual Disturbances: 0-None Headache: 2-Mild CIWA-Ar Total Score: 13 - Admission Criteria [facility]ASAS Guidelines: Admission for Medically Managed Detox: Requires at least one of the followin. CIWA greater than 12 2. Seizures within the past 24 hours 3. Delirium tremens within the past 24 hours 4. Hallucinations within the past 24 hours 5. Acute intervention needed for co occurring medical disorder 6. Acute intervention needed for co occurring psychiatric disorder 7. Severe withdrawal that cannot be handled at a lower level of care (continued vomiting, continued diarrhea, abnormal vital signs) requiring intravenous medication and/or fluids 8. Patient presents the following: CIWA greater than 12 Admission Criteria Met: Admission criteria met Admission ROS [facility] - HPI Chief Complaint: i need help to stop drinking alcohol Allergies/Adverse Reactions: Allergies Allergy/AdvReac Type Severity Reaction Status Date / Time No Known Allergies Allergy Verified 08/04/18 10:15 History of Present Illness: this 58 years old male with alcohol dependence seeking detox,withdrawal symptom, multiple admissions in detox,last 07/08/18 to 07/12/18 seen in er at [facility] last night medically clear to come in for detox multiple admissions in detox but keep relapsing also using marijuana and cocaine syncope alcohol related longest period of sobriety 1 year nicotine dependence plan for rehab after detox Exam Limitations: No Limitations - Ebola screening Have you traveled outside of the country in the last 21 days: No Have you had contact with anyone from an Ebola affected area: No Have you been sick,other than usual withdrawal symptoms: No Do you have a fever: No - Review of Systems Constitutional: Loss of Appetite, Malaise, Night Sweats, Changes in sleep, Weakness, Unintentional Wgt. Loss EENT: reports: Nose Congestion Respiratory: reports: No Symptoms reported Cardiac: reports: Palpitations GI: reports: Nausea, Poor Appetite, Abdominal cramping : reports: No Symptoms Reported Musculoskeletal: reports: Back Pain, Muscle Pain Integumentary: reports: Dryness Neuro: reports: Headache, Tremors Endocrine: reports: No Symptoms Reported Hematology: reports: No Symptoms Reported Psychiatric: reports: No Sypmtoms Reported, Judgement Intact, Mood/Affect Appropiate, Orientated x3, other Other Systems: Reviewed and Negative Patient History - Patient Medical History Hx Anemia: No Hx Asthma: No Hx Chronic Obstructive Pulmonary Disease (COPD): No Hx Cancer: No Hx Cardiac Disorders: No Hx Congestive Heart Failure: No Hx Hypertension: No Hx Hypercholesterolemia: No Hx Pacemaker: No HX Cerebrovascular Accident: No Hx Seizures: No Hx Dementia: No Hx Diabetes: No Hx Gastrointestinal Disorders: No Hx Liver Disease: No Hx Genitourinary Disorders: No Hx Sexually Transmitted Disorders: No Hx Renal Disease (ESRD): No Hx Thyroid Disease: No Hx Human Immunodeficiency Virus (HIV): No (last 07/01 negative) Hx Hepatitis C: No Hx Depression: Yes Hx Suicide Attempt: No Hx Bipolar Disorder: No Hx Schizophrenia: No - Patient Surgical History Past Surgical History: Yes Hx Neurologic Surgery: No Hx Cataract Extraction: No Hx Cardiac Surgery: No Hx Lung Surgery: No Hx Breast Surgery: No Hx Breast Biopsy: No Hx Abdominal Surgery: No Hx Appendectomy: No Hx Cholecystectomy: No Hx Genitourinary Surgery: No Hx Section: No Hx Orthopedic Surgery: Yes (LT KNEE SX) Anesthesia Reaction: No - PPD History Documented Results: Positive w/proof Implanted On Prior [facility] Admission?: No Results: 07/09/18 PPD to be Administered?: No - Smoking Cessation Smoking history: Unknown if ever smoked Have you smoked in the past 12 months: No Aproximately how many cigarettes per day: 5 Cigars Per Day: 0 Hx Chewing Tobacco Use: No Initiated information on smoking cessation: Yes 'Breaking Loose' booklet given: 08/04/18 - Substance & Tx. History Hx Alcohol Use: Yes Hx Substance Use: No Substance Use Type: Alcohol, Marijuana Hx Substance Use Treatment: Yes ([facility] 07/08/18 to 07/12/18) - Substances Abused Alcohol Route: Oral Frequency: Daily Amount used: 1-2 pints liquor Age of first use: 19 Date of Last Use: 08/04/18 Marijuana/Hashish Route: Smoking Frequency: Daily Amount used: 1-2 bag Age of first use: 19 Date of Last Use: 08/03/18 Cocaine Route: Inhalation Frequency: 1-3 times last 30 days Amount used: $20 Age of first use: 27 Date of Last Use: 07/29/18 Family Disease History - Family Disease History Family Disease History: Diabetes: Mother (ALCOHOL AND DRUG ABUSE), Sister, Other : Grandparent (ALCOHOL AND DRUG abuse), Father (ALCOHOL AND DRUG ABUSE), Mother , Brother (alcohol,dsa) Admission Physical Exam [facility] - Vital Signs Vital Signs: Vital Signs - 24 hr 08/04/18 09:00 Temperature 98.1 F Pulse Rate 103 H Respiratory 18 Rate Blood Pressure 146/93 - Physical General Appearance: Yes: Moderate Distress, Tremorous, Irritable, Sweating, Anxious HEENTM: Yes: Normal ENT Inspection, MISSY, Pharynx Normal, Other (abraion of frontal area) Respiratory: Yes: Within Normal Limits, Lungs Clear, Normal Breath Sounds Neck: Yes: Within Normal Limits, Supple, Trachea in good position Breast: Yes: Within Normal Limits Cardiology: Yes: Tachycardia Abdominal: Yes: Within Normal Limits, Normal Bowel Sounds, Soft Genitourinary: Yes: Within Normal Limits Back: Yes: Muscle Spasm Extremities: Yes: Tremors Neurological: Yes: steel molder 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 intact, Fully Oriented, Motor Strength 5/5 Integumentary: Yes: Dry Lymphatic: Yes: Within Normal Limits - Diagnostic (1) Alcohol dependence with uncomplicated withdrawal Current Visit: No Status: Chronic (2) Syncope Current Visit: No Status: Acute (3) Weight decreased Current Visit: No Status: Acute (4) Cocaine dependence Current Visit: No Status: Chronic (5) Knee pain Current Visit: No Status: Chronic Qualifiers: Chronicity: chronic Laterality: bilateral Qualified Code(s): M25.561 - Pain in right knee; M25.562 - Pain in left knee; G89.29 - Other chronic pain (6) Positive PPD, treated Current Visit: No Status: Chronic (7) cannabis dependence Current Visit: No Status: Chronic (8) Abrasion of nose Current Visit: Yes Status: Acute Cleared for Admission [facility] - Detox or Rehab [facility] Level of Care: Medically Managed Detox Regimen/Protocol: Librium [facility] Breath Alcohol Content Breath Alcohol Content: 0.083 Urine Drug Screen - Results Drug Screen Negative: No Urine Drug Screen Results: THC-Marijuana, BZO-Benzodiazepines Inpatient Rehab Admission - Rehab Decision to Admit Inpatient rehab admission?: No
[2018-08-04] MEDS ORDERED: guaiFENesin/D-METHORPHAN HB 10 ML UNIT-DOSE CUPS PO PRN (10:34)
[2018-08-04] MEDS ORDERED: MAGNESIUM CITRATE 300 ML BOTTLE PO PRN (10:34)
[2018-08-04] MEDS ORDERED: LOPERAMIDE HCL 2 MG CAPSULE PO PRN (10:34)
[2018-08-04] MEDS ORDERED: MAG HYDROX/AL HYDROX/SIMETH 30 ML UNIT-DOSE CUP PO PRN (10:34)
[2018-08-04] MEDS ORDERED: hydrOXYzine PAMOATE 25 MG CAPSULE (FP) PO PRN (10:34)
[2018-08-04] MEDS ORDERED: MENTHOL/PHENOL 1 EACH UD MM PRN (10:34)
[2018-08-04] MEDS ORDERED: IBUPROFEN 400 MG TABLET (FP) PO PRN (10:34)
[2018-08-04] MEDS ORDERED: P-EPHED 60MG/TRIPROLIDI 2.5MG TABLET PO PRN (10:34)
[2018-08-04] MEDS ORDERED: MAGNESIUM HYDROX 2400MG/30ML ORAL SUSPENSION 30 ML CUP PO PRN (10:34)
[2018-08-04] MEDS ORDERED: chlordiazePOXIDE HCL 25 MG CAPSULE PO PRN (10:34)
[2018-08-04] MEDS: chlordiazePOXIDE HCL 25 MG CAPSULE PO SCH ×2 (17:16→22:23)
[2018-08-04] MEDS: THIAMINE HCL 100 MG TABLET (FP) PO SCH (22:22)
[2018-08-04] MEDS: MELATONIN 5 MG TABLETS PO PRN (22:22)
[2018-08-04] MEDS: ACETAMINOPHEN 325 MG TABLET (FP) PO PRN (22:23)
[2018-08-05] MEDS: chlordiazePOXIDE HCL 25 MG CAPSULE PO SCH ×4 (05:29→22:09)
[2018-08-05] MEDS: PRENATAL VITAMINS W/ FOLIC ACID TABLET (FP) PO SCH (10:10)
[2018-08-05 10:27] LABS: HEMATOCRIT 37.8 % (35.4-49); MCH 31.1 pg (25.7-33.7); MCHC 34.5 g/dl (32.0-35.9); MEAN CELL VOLUME 90.3 fl (80-96); PLATELET COUNT 145 K/MM3 (134-434); RBC 4.19 M/mm3 (4.00-5.60); RDW 13.5 % (11.9-15.9); WHITE BLOOD COUNT 3.5 K/mm3 (4.0-10.0)
[2018-08-05 10:56] LABS: ALBUMIN 4.2 g/dl (3.4-5.0); ALK PHOS 104 U/L (45-117); ANION GAP 9 MMOL/L (8-16); BILIRUBIN,TOTAL 0.8 mg/dL (0.2-1); BLOOD UREA NITROGEN 12 mg/dL (7-18); CHLORIDE 95 mmol/L (98-107); CO2 27 mmol/L (21-32); CREATININE 0.9 mg/dL (0.55-1.3); GLUCOSE,RANDOM 74 mg/dL (74-106); POTASSIUM 4.1 mmol/L (3.5-5.1); SGOT/AST 79 U/L (15-37); SGPT/ALT 43 U/L (13-61); SODIUM 131 mmol/L (136-145); TOT PROT 8.2 g/dl (6.4-8.2)
--- NOTE | 2018-08-05 17:17 | PN ---
[facility] CIWA - CIWA Score Nausea/Vomitin-No Nausea/No Vomiting Muscle Tremors: 3 Anxiety: 3 Agitation: 4-Moderately Restless Paroxysmal Sweats: 3 Orientation: 0-Oriented Tacttile Disturbances: 0-None Auditory Disturbances: 0-None Visual Disturbances: 0-None Headache: 0-None Present CIWA-Ar Total Score: 13 S Progress Note (SOAP) Subjective: sweats sleep disturbance requesting to see psych for depression and "some other issues" Objective: 08/05/18 17:14 A & O x 3 Restless abrasions to nose and healing lac to forehead denies SI/HI Vital Signs Temperature 97 F L 08/05/18 13:13 Pulse Rate 93 H 08/05/18 13:13 Respiratory Rate 20 08/05/18 13:13 Blood Pressure 131/82 08/05/18 13:13 O2 Sat by Pulse Oximetry (%) Laboratory Last Values WBC 3.5 K/mm3 (4.0-10.0) L 08/05/18 05:35 RBC 4.19 M/mm3 (4.00-5.60) 08/05/18 05:35 Hgb 13.0 GM/dL (11.7-16.9) 08/05/18 05:35 Hct 37.8 % (35.4-49) D 08/05/18 05:35 MCV 90.3 fl (80-96) 08/05/18 05:35 MCH 31.1 pg (25.7-33.7) 08/05/18 05:35 MCHC 34.5 g/dl (32.0-35.9) 08/05/18 05:35 RDW 13.5 % (11.9-15.9) 08/05/18 05:35 Plt Count 145 K/MM3 (134-434) 08/05/18 05:35 MPV 10.0 fl (7.5-11.1) 08/05/18 05:35 Sodium 131 mmol/L (136-145) L 08/05/18 05:35 Potassium 4.1 mmol/L (3.5-5.1) 08/05/18 05:35 Chloride 95 mmol/L (98-107) L 08/05/18 05:35 Carbon Dioxide 27 mmol/L (21-32) 08/05/18 05:35 Anion Gap 9 MMOL/L (8-16) 08/05/18 05:35 BUN 12 mg/dL (7-18) 08/05/18 05:35 Creatinine 0.9 mg/dL (0.55-1.3) 08/05/18 05:35 Creat Clearance w eGFR > 60 (>60) 08/05/18 05:35 Random Glucose 74 mg/dL (74-106) 08/05/18 05:35 Calcium 9.0 mg/dL (8.5-10.1) 08/05/18 05:35 Total Bilirubin 0.8 mg/dL (0.2-1) 08/05/18 05:35 AST 79 U/L (15-37) H 08/05/18 05:35 ALT 43 U/L (13-61) 08/05/18 05:35 Alkaline Phosphatase 104 U/L (45-117) 08/05/18 05:35 Total Protein 8.2 g/dl (6.4-8.2) 08/05/18 05:35 Albumin 4.2 g/dl (3.4-5.0) 08/05/18 05:35 RPR Titer Nonreactive (NONREACTIVE) 08/05/18 05:35 labs noted Assessment: 08/05/18 17:17 withdrawal sx Anxiety Plan: continue detox psych consult ordered
[2018-08-05] MEDS: MELATONIN 5 MG TABLETS PO PRN (22:09)
[2018-08-05] MEDS: THIAMINE HCL 100 MG TABLET (FP) PO SCH (22:09)
[2018-08-06] MEDS: chlordiazePOXIDE HCL 25 MG CAPSULE PO SCH ×2 (05:03→10:08)
[2018-08-06] MEDS: ACETAMINOPHEN 325 MG TABLET (FP) PO PRN ×2 (05:04→22:06)
--- NOTE | 2018-08-06 08:53 | CONSULT ---
[facility] Psychiatric Consult - Data Date of interview: 08/06/18 Admission source: [facility] Identifying data: Patient is a 58 y/o AA male, single, father of one, homeless, unemployed, SSI recipient. he claimed he goes and stay at his sister;s house on and off Substance Abuse History: This is one of his multiple admissions to [facility] due to frequent relapses of ETOH,marijuana, cocaine and street benzodiazepines. He has a long substance abuse history and reported drinking alcohol daily beers and vodka. His alcohol use is secondary to mutiple family losses and stresses Medical History: He denies active medical problem with the exception of gouty arthritis. Past surgical history is significant for torn ligament left knee in 1984. C/o low back pain Psychiatric History: He carry a diagnosis of Schizo affective disorder and had prior psychiatric hospitalization in 1991 @ [facility] following a sucide attempt by hanging. He was medicated ding his incarceration in 1983. he has been off psychotropic medications for several years and had rsumed his medciation since his recent Detox admission last month. He complains of mood swings, easily neeraj and irrtable, lack self control, annoyed by noises. He suffered from insomnia and occaionally heard family voices talking to him,he denies visual hallucinations. Feels sad thinking about his family members. decreased appetite weight loss. He denies suicidal or homicidal ideation Physical/Sexual Abuse/Trauma History: No history of abuse Additional Comment: Past history of trouble with the law and incarcerations Mental Status Exam - Mental Status Exam Alert and Oriented to: Time, Place, Person Cognitive Function: Grossly Intact Patient Appearance: Disheveled Mood: Angry, Depressed, Sad Affect: Mood Congruent Patient Behavior: Fatigued, Cooperative Speech Pattern: Delayed, Pressured Voice Loudness: Mildly Loud Thought Process: Circumstantial Thought Disorder: Being Controlled Hallucinations: Auditory Suicidal Ideation: Denies Homicidal Ideation: Denies Insight/Judgement: Poor Sleep: Poorly Appetite: Poor Muscle strength/Tone: Normal Gait/Station: Shuffling (Patient experiences passive auditory hallucination) Psychiatric Findings - Problem List ([place] 1, 2,3) (1) Alcohol dependence with uncomplicated withdrawal Current Visit: No Status: Chronic (2) Alcohol-induced sleep disorder Current Visit: No Status: Chronic (3) Insomnia Current Visit: No Status: Chronic Qualifiers: Insomnia type: unspecified Qualified Code(s): G47.00 - Insomnia, unspecified (4) Knee pain Current Visit: No Status: Chronic Qualifiers: Chronicity: chronic Laterality: bilateral Qualified Code(s): M25.561 - Pain in right knee; M25.562 - Pain in left knee; G89.29 - Other chronic pain (5) Schizoaffective disorder Current Visit: No Status: Chronic Comment: Non-adherent to medications. (6) Substance induced mood disorder Current Visit: No Status: Chronic (7) cannabis dependence Current Visit: No Status: Chronic - Initial Treatment Plan Initial Treatment Plan: Continue detox treatment. Psychoeducation. Zyprexa 10 mg po q hs. Monitor progress
--- NOTE | 2018-08-06 09:43 | PN ---
S CIWA - CIWA Score Nausea/Vomitin-No Nausea/No Vomiting Muscle Tremors: 3 Anxiety: 2 Agitation: 1-Slight > Activity Paroxysmal Sweats: 1-Minimal Palms Moist Orientation: 1-Uncertain about Date Tacttile Disturbances: 0-None Auditory Disturbances: 0-None Visual Disturbances: 0-None Headache: 2-Mild CIWA-Ar Total Score: 10 [facility] Progress Note (SOAP) Subjective: left knee surgery 1991 long history of gout taking colchicine and gabapentin tremor sweating sleep better last night but joints pain from gout and trauma Objective: 08/06/18 09:40 Vital Signs Temperature 96.2 F L 08/06/18 09:17 Pulse Rate 74 08/06/18 09:17 Respiratory Rate 18 08/06/18 09:17 Blood Pressure 121/71 08/06/18 09:17 O2 Sat by Pulse Oximetry (%) Laboratory Last Values WBC 3.5 K/mm3 (4.0-10.0) L 08/05/18 05:35 RBC 4.19 M/mm3 (4.00-5.60) 08/05/18 05:35 Hgb 13.0 GM/dL (11.7-16.9) 08/05/18 05:35 Hct 37.8 % (35.4-49) D 08/05/18 05:35 MCV 90.3 fl (80-96) 08/05/18 05:35 MCH 31.1 pg (25.7-33.7) 08/05/18 05:35 MCHC 34.5 g/dl (32.0-35.9) 08/05/18 05:35 RDW 13.5 % (11.9-15.9) 08/05/18 05:35 Plt Count 145 K/MM3 (134-434) 08/05/18 05:35 MPV 10.0 fl (7.5-11.1) 08/05/18 05:35 Sodium 131 mmol/L (136-145) L 08/05/18 05:35 Potassium 4.1 mmol/L (3.5-5.1) 08/05/18 05:35 Chloride 95 mmol/L (98-107) L 08/05/18 05:35 Carbon Dioxide 27 mmol/L (21-32) 08/05/18 05:35 Anion Gap 9 MMOL/L (8-16) 08/05/18 05:35 BUN 12 mg/dL (7-18) 08/05/18 05:35 Creatinine 0.9 mg/dL (0.55-1.3) 08/05/18 05:35 Creat Clearance w eGFR > 60 (>60) 08/05/18 05:35 Random Glucose 74 mg/dL (74-106) 08/05/18 05:35 Calcium 9.0 mg/dL (8.5-10.1) 08/05/18 05:35 Total Bilirubin 0.8 mg/dL (0.2-1) 08/05/18 05:35 AST 79 U/L (15-37) H 08/05/18 05:35 ALT 43 U/L (13-61) 08/05/18 05:35 Alkaline Phosphatase 104 U/L (45-117) 08/05/18 05:35 Total Protein 8.2 g/dl (6.4-8.2) 08/05/18 05:35 Albumin 4.2 g/dl (3.4-5.0) 08/05/18 05:35 RPR Titer Nonreactive (NONREACTIVE) 08/05/18 05:35 lab noted Assessment: 08/06/18 09:40 withdrawal sx gout arthritis Plan: continue detox cane colchicine and gabapentin and lamine rodriguez
[2018-08-06] MEDS: PRENATAL VITAMINS W/ FOLIC ACID TABLET (FP) PO SCH (10:08)
[2018-08-06] MEDS: GABAPENTIN 300 MG CAPSULE (FP) PO SCH ×2 (10:09→22:05)
[2018-08-06] MEDS: METHYL SALICYLATE/MENTHOL OINT 30 GM TUBE TP SCH ×2 (12:15→22:05)
[2018-08-06] MEDS: COLCHICINE 0.6 MG TABLET (FP) PO SCH (12:15)
[2018-08-06] MEDS: chlordiazePOXIDE 5 MG CAPSULE PO SCH ×2 (17:55→22:05)
[2018-08-06] MEDS: OLANZapine 10 MG TABLET PO SCH (22:05)
[2018-08-06] MEDS: THIAMINE HCL 100 MG TABLET (FP) PO SCH (22:05)
[2018-08-06] MEDS: MELATONIN 5 MG TABLETS PO PRN (22:06)
[2018-08-07] MEDS: chlordiazePOXIDE 5 MG CAPSULE PO SCH ×2 (05:13→10:11)
[2018-08-07] MEDS: ACETAMINOPHEN 325 MG TABLET (FP) PO PRN ×3 (05:13→22:22)
--- NOTE | 2018-08-07 09:59 | PN ---
S CIWA - CIWA Score Nausea/Vomitin-No Nausea/No Vomiting Muscle Tremors: 2 Anxiety: 1-Mildly Anxious Agitation: 1-Slight > Activity Paroxysmal Sweats: 1-Minimal Palms Moist Orientation: 0-Oriented Tacttile Disturbances: 0-None Auditory Disturbances: 0-None Visual Disturbances: 0-None Headache: 1-Very Mild CIWA-Ar Total Score: 6 BHS Progress Note (SOAP) Subjective: feeling better mild tremor less sweating sleep better at night Objective: 08/07/18 09:58 Vital Signs Temperature 96.9 F L 08/07/18 09:39 Pulse Rate 78 08/07/18 09:39 Respiratory Rate 18 08/07/18 09:39 Blood Pressure 140/85 08/07/18 09:39 O2 Sat by Pulse Oximetry (%) Laboratory Last Values WBC 3.5 K/mm3 (4.0-10.0) L 08/05/18 05:35 RBC 4.19 M/mm3 (4.00-5.60) 08/05/18 05:35 Hgb 13.0 GM/dL (11.7-16.9) 08/05/18 05:35 Hct 37.8 % (35.4-49) D 08/05/18 05:35 MCV 90.3 fl (80-96) 08/05/18 05:35 MCH 31.1 pg (25.7-33.7) 08/05/18 05:35 MCHC 34.5 g/dl (32.0-35.9) 08/05/18 05:35 RDW 13.5 % (11.9-15.9) 08/05/18 05:35 Plt Count 145 K/MM3 (134-434) 08/05/18 05:35 MPV 10.0 fl (7.5-11.1) 08/05/18 05:35 Sodium 131 mmol/L (136-145) L 08/05/18 05:35 Potassium 4.1 mmol/L (3.5-5.1) 08/05/18 05:35 Chloride 95 mmol/L (98-107) L 08/05/18 05:35 Carbon Dioxide 27 mmol/L (21-32) 08/05/18 05:35 Anion Gap 9 MMOL/L (8-16) 08/05/18 05:35 BUN 12 mg/dL (7-18) 08/05/18 05:35 Creatinine 0.9 mg/dL (0.55-1.3) 08/05/18 05:35 Creat Clearance w eGFR > 60 (>60) 08/05/18 05:35 Random Glucose 74 mg/dL (74-106) 08/05/18 05:35 Calcium 9.0 mg/dL (8.5-10.1) 08/05/18 05:35 Total Bilirubin 0.8 mg/dL (0.2-1) 08/05/18 05:35 AST 79 U/L (15-37) H 08/05/18 05:35 ALT 43 U/L (13-61) 08/05/18 05:35 Alkaline Phosphatase 104 U/L (45-117) 08/05/18 05:35 Total Protein 8.2 g/dl (6.4-8.2) 08/05/18 05:35 Albumin 4.2 g/dl (3.4-5.0) 08/05/18 05:35 RPR Titer Nonreactive (NONREACTIVE) 08/05/18 05:35 lab noted Assessment: 08/07/18 09:59 mild withdrawal sx Plan: continue detox
[2018-08-07] MEDS: METHYL SALICYLATE/MENTHOL OINT 30 GM TUBE TP SCH ×2 (10:11→22:21)
[2018-08-07] MEDS: GABAPENTIN 300 MG CAPSULE (FP) PO SCH ×2 (10:11→22:21)
[2018-08-07] MEDS: COLCHICINE 0.6 MG TABLET (FP) PO SCH (10:11)
[2018-08-07] MEDS: PRENATAL VITAMINS W/ FOLIC ACID TABLET (FP) PO SCH (10:11)
[2018-08-07] MEDS: chlordiazePOXIDE HCL 10 MG CAPSULE PO SCH ×2 (17:44→22:21)
[2018-08-07] MEDS: OLANZapine 10 MG TABLET PO SCH (22:21)
[2018-08-07] MEDS: THIAMINE HCL 100 MG TABLET (FP) PO SCH (22:21)
[2018-08-07] MEDS: MELATONIN 5 MG TABLETS PO PRN (22:23)
[2018-08-08] MEDS: chlordiazePOXIDE HCL 10 MG CAPSULE PO SCH ×2 (05:26→10:25)
[2018-08-08] MEDS: METHYL SALICYLATE/MENTHOL OINT 30 GM TUBE TP SCH (10:24)
[2018-08-08] MEDS: GABAPENTIN 300 MG CAPSULE (FP) PO SCH (10:24)
[2018-08-08] MEDS: PRENATAL VITAMINS W/ FOLIC ACID TABLET (FP) PO SCH (10:24)
[2018-08-08] MEDS: COLCHICINE 0.6 MG TABLET (FP) PO SCH (10:24)
--- NOTE | 2018-08-08 10:57 | DS ---
[facility] Detox Discharge Summary Admission Date: 08/04/18 Discharge Date: 08/08/18 - History Present History: Alcohol Dependence Additional Comments: 58 years old male admitted on 08/04/18 for alcohol withdrawal stabilization completed alcohol detox regimen aftercare [facility] Physical Exam Results Vital Signs: Vital Signs Temperature 97.6 F 08/08/18 09:47 Pulse Rate 70 08/08/18 09:47 Respiratory Rate 20 08/08/18 09:47 Blood Pressure 134/80 08/08/18 09:47 O2 Sat by Pulse Oximetry (%) Pertinent Admission Physical Exam Findings: alcohol withdrawal sx Laboratory Last Values WBC 3.5 K/mm3 (4.0-10.0) L 08/05/18 05:35 RBC 4.19 M/mm3 (4.00-5.60) 08/05/18 05:35 Hgb 13.0 GM/dL (11.7-16.9) 08/05/18 05:35 Hct 37.8 % (35.4-49) D 08/05/18 05:35 MCV 90.3 fl (80-96) 08/05/18 05:35 MCH 31.1 pg (25.7-33.7) 08/05/18 05:35 MCHC 34.5 g/dl (32.0-35.9) 08/05/18 05:35 RDW 13.5 % (11.9-15.9) 08/05/18 05:35 Plt Count 145 K/MM3 (134-434) 08/05/18 05:35 MPV 10.0 fl (7.5-11.1) 08/05/18 05:35 Sodium 131 mmol/L (136-145) L 08/05/18 05:35 Potassium 4.1 mmol/L (3.5-5.1) 08/05/18 05:35 Chloride 95 mmol/L (98-107) L 08/05/18 05:35 Carbon Dioxide 27 mmol/L (21-32) 08/05/18 05:35 Anion Gap 9 MMOL/L (8-16) 08/05/18 05:35 BUN 12 mg/dL (7-18) 08/05/18 05:35 Creatinine 0.9 mg/dL (0.55-1.3) 08/05/18 05:35 Creat Clearance w eGFR > 60 (>60) 08/05/18 05:35 Random Glucose 74 mg/dL (74-106) 08/05/18 05:35 Calcium 9.0 mg/dL (8.5-10.1) 08/05/18 05:35 Total Bilirubin 0.8 mg/dL (0.2-1) 08/05/18 05:35 AST 79 U/L (15-37) H 08/05/18 05:35 ALT 43 U/L (13-61) 08/05/18 05:35 Alkaline Phosphatase 104 U/L (45-117) 08/05/18 05:35 Total Protein 8.2 g/dl (6.4-8.2) 08/05/18 05:35 Albumin 4.2 g/dl (3.4-5.0) 08/05/18 05:35 RPR Titer Nonreactive (NONREACTIVE) 08/05/18 05:35 lab noted - Treatment Hospital Course: Detox Protocol Followed, Detoxed Safely, Responded well, Discharged Condition Good, Rehab Referral Accepted Patient has Accepted a Rehab Referral to: [facility] - Medication Discharge Medications: Ambulatory Orders Gabapentin [Neurontin] 300 mg PO BID 08/06/18 Colchicine [Colcrys -] 0.6 mg PO DAILY #14 tablet 08/07/18 - Diagnosis (1) Weight decreased Current Visit: Yes Status: Acute (2) Alcohol dependence with uncomplicated withdrawal Current Visit: Yes Status: Acute (3) Nicotine dependence Current Visit: Yes Status: Acute Qualifiers: Nicotine product type: cigarettes Substance use status: in withdrawal Qualified Code(s): F17.213 - Nicotine dependence, cigarettes, with withdrawal (4) Positive PPD, treated Current Visit: Yes Status: Resolved (5) Substance induced mood disorder Current Visit: Yes Status: Suspected - AMA Did Patient Leave Against Medical Advice: No
[2018-08-08 13:23] VITALS: BP 141/79; PULSE 90; TEMP 97.5
== END 2018-08-08 15:10 | disposition other institution (70) | DRG 775 ==
LOC: YASAS 08:39 → Y3N 11:38
PROVIDERS: ADMIT Surgery; ATTEND Surgery
PROC: HZ2ZZZZ Detoxification Services for Substance Abuse Treatment (ICD-10-PCS; principal; 2018-08-04)
DX: F10.230 Alcohol dependence with withdrawal, uncomplicated (principal); F10.282 Alcohol dependence with alcohol-induced sleep disorder; F12.20 Cannabis dependence, uncomplicated; F17.213 Nicotine dependence, cigarettes, with withdrawal; F19.24 Other psychoactive substance dependence with psychoactive substance-induced mood disorder; F25.9 Schizoaffective disorder, unspecified; F41.9 Anxiety disorder, unspecified; R76.11 Nonspecific reaction to tuberculin skin test without active tuberculosis; M10.9 Gout, unspecified; M19.90 Unspecified osteoarthritis, unspecified site; G47.00 Insomnia, unspecified; M25.561 Pain in right knee; M25.562 Pain in left knee; G89.29 Other chronic pain; R00.0 Tachycardia, unspecified
CPT/HCPCS: 36415; 80053; 80307; 85027; 86593; 99281-25

== ENCOUNTER 2018-08-08 15:20 | Inpatient (IN) | payer OTHER ==
--- NOTE | 2018-08-08 11:00 | HP ---
[facility] Re[facility] Assess/Revision - Admission History Admitted to Rehab from: [facility] Date of Admission to Rehab: 08/08/18 - Findings Detox History & Physical reviewed: Yes Concur with findings: Yes Comments/Additional Findings: transferred from detox to rehab admission as per protocol Inpatient Rehab Admission - Rehab Decision to Admit Inpatient rehab admission?: Yes - Initial Determination Are CD services needed?: Yes Free of communicable disease: Yes Not in need of hospitalization: Yes - Rehab Admission Criteria Previous failed treatment: Yes Poor recovery environment: Yes Comorbidities: Yes Lacks judgement: No Patient is meeting Inpatient Rehab admission criteria:: Yes
[~2018-08-08 15:20] MED LIST: LOPERAMIDE HCL 2 MG CAPSULE PO PRN; MAG HYDROX/AL HYDROX/SIMETH 30 ML UNIT-DOSE CUP PO PRN; MAGNESIUM CITRATE 300 ML BOTTLE PO PRN; MAGNESIUM HYDROX 2400MG/30ML ORAL SUSPENSION 30 ML CUP PO PRN; MENTHOL/PHENOL 1 EACH UD MM PRN; NICOTINE 14 MG/24 HOURS TOPICAL PATCH TD PRN; NICOTINE POLACRILEX 2 MG GUM BUC PRN; P-EPHED 60MG/TRIPROLIDI 2.5MG TABLET PO PRN; guaiFENesin/D-METHORPHAN HB 10 ML UNIT-DOSE CUPS PO PRN
[2018-08-08] MEDS: IBUPROFEN 400 MG TABLET (FP) PO PRN (21:12)
[2018-08-08] MEDS: GABAPENTIN 300 MG CAPSULE (FP) PO SCH (21:12)
[2018-08-08] MEDS: MELATONIN 5 MG TABLETS PO PRN (21:12)
[2018-08-08] MEDS: THIAMINE HCL 100 MG TABLET (FP) PO SCH (21:13)
[2018-08-09] MEDS: GABAPENTIN 300 MG CAPSULE (FP) PO SCH ×2 (10:18→21:10)
[2018-08-09] MEDS: PRENATAL VITAMINS W/ FOLIC ACID TABLET (FP) PO SCH (10:18)
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
[2018-08-09] MEDS: COLCHICINE 0.6 MG TABLET (FP) PO SCH (12:27)
[2018-08-09] MEDS: THIAMINE HCL 100 MG TABLET (FP) PO SCH (21:10)
[2018-08-09] MEDS: OLANZapine 10 MG TABLET PO SCH (21:10)
[2018-08-09] MEDS: SUVOREXANT 10 MG TABLET PO PRN (21:11)
[2018-08-09] MEDS: ACETAMINOPHEN 325 MG TABLET (FP) PO PRN (21:12)
[2018-08-10] MEDS: GABAPENTIN 300 MG CAPSULE (FP) PO SCH ×2 (09:44→21:07)
[2018-08-10] MEDS: PRENATAL VITAMINS W/ FOLIC ACID TABLET (FP) PO SCH (09:44)
[2018-08-10] MEDS: ACETAMINOPHEN 325 MG TABLET (FP) PO PRN (09:45)
[2018-08-10] MEDS: COLCHICINE 0.6 MG TABLET (FP) PO SCH (09:45)
[2018-08-10] MEDS: THIAMINE HCL 100 MG TABLET (FP) PO SCH (21:07)
[2018-08-10] MEDS: IBUPROFEN 400 MG TABLET (FP) PO PRN (21:07)
[2018-08-10] MEDS: OLANZapine 10 MG TABLET PO SCH (21:07)
[2018-08-10] MEDS: SUVOREXANT 10 MG TABLET PO PRN (21:08)
[2018-08-11] MEDS: COLCHICINE 0.6 MG TABLET (FP) PO SCH (09:50)
[2018-08-11] MEDS: PRENATAL VITAMINS W/ FOLIC ACID TABLET (FP) PO SCH (09:50)
[2018-08-11] MEDS: GABAPENTIN 300 MG CAPSULE (FP) PO SCH ×2 (09:50→21:16)
[2018-08-11] MEDS: IBUPROFEN 400 MG TABLET (FP) PO PRN (09:50)
[2018-08-11] MEDS ORDERED: BACITRACIN 0.9 GM PACKET TP ONE (10:21)
--- NOTE | 2018-08-11 10:21 | PN ---
S Progress Note Note: PT C/O REDNESS AND SWELLING TO LEFT LOWER EYE. REPORTS 'IT'S UNCOMFORTABLE". DENIES FEVER. Vital Signs 08/11/18 08/11/18 03:30 06:48 Temperature 98.6 F Pulse Rate 90 Respiratory 20 16 Rate Blood Pressure 142/88 EXAM:LEFT EYELID WITH REDNESS AND A SMALL BUMP ON LATERAL ASPECT. NO DRAINAGE NOTED. A:STY, LEFT EYE PLAN:BACITRACIN TOPICAL EYE OINTMENT APPLY TO LEFT LOWER EYELID DIRECTED. WARM COMPRESS TO LEFT LOWER EYELID BID
[2018-08-11] MEDS: BACITRACIN 3.5 GM OPTHALMIC OINT TUBE OS SCH ×2 (11:25→21:17)
[2018-08-11] MEDS: LIDOCAINE 5% TOPICAL PATCH TP SCH (12:16)
[2018-08-11] MEDS: OLANZapine 10 MG TABLET PO SCH (21:16)
[2018-08-11] MEDS: THIAMINE HCL 100 MG TABLET (FP) PO SCH (21:17)
[2018-08-11] MEDS: METHYL SALICYLATE/MENTHOL OINT 30 GM TUBE TP SCH (21:18)
[2018-08-11] MEDS: LIDOCAINE PATCH REMOVAL MC SCH (21:18)
[2018-08-11] MEDS: SUVOREXANT 10 MG TABLET PO PRN (21:20)
[2018-08-11] MEDS: ACETAMINOPHEN 325 MG TABLET (FP) PO PRN (21:20)
[2018-08-11] MEDS ORDERED: BACITRACIN 15 GM TUBE TOPICAL OINTMENT TP SCH (22:00)
[2018-08-12] MEDS: PRENATAL VITAMINS W/ FOLIC ACID TABLET (FP) PO SCH (09:41)
[2018-08-12] MEDS: BACITRACIN 3.5 GM OPTHALMIC OINT TUBE OS SCH ×2 (09:41→21:15)
[2018-08-12] MEDS: COLCHICINE 0.6 MG TABLET (FP) PO SCH (09:41)
[2018-08-12] MEDS: GABAPENTIN 300 MG CAPSULE (FP) PO SCH ×2 (09:41→21:13)
[2018-08-12] MEDS: LIDOCAINE 5% TOPICAL PATCH TP SCH (09:41)
[2018-08-12] MEDS: ACETAMINOPHEN 325 MG TABLET (FP) PO PRN (09:43)
[2018-08-12] MEDS: THIAMINE HCL 100 MG TABLET (FP) PO SCH (21:13)
[2018-08-12] MEDS: MELATONIN 5 MG TABLETS PO PRN (21:13)
[2018-08-12] MEDS: OLANZapine 10 MG TABLET PO SCH (21:13)
[2018-08-12] MEDS: SUVOREXANT 10 MG TABLET PO PRN (21:14)
[2018-08-12] MEDS: LIDOCAINE PATCH REMOVAL MC SCH (21:15)
[2018-08-12] MEDS: METHYL SALICYLATE/MENTHOL OINT 30 GM TUBE TP SCH (21:15)
[2018-08-13] MEDS: BACITRACIN 3.5 GM OPTHALMIC OINT TUBE OS SCH ×2 (10:29→21:08)
[2018-08-13] MEDS: GABAPENTIN 300 MG CAPSULE (FP) PO SCH ×2 (10:29→21:09)
[2018-08-13] MEDS: PRENATAL VITAMINS W/ FOLIC ACID TABLET (FP) PO SCH (10:29)
[2018-08-13] MEDS: COLCHICINE 0.6 MG TABLET (FP) PO SCH (10:29)
[2018-08-13] MEDS: LIDOCAINE 5% TOPICAL PATCH TP SCH (10:29)
[2018-08-13] MEDS: IBUPROFEN 400 MG TABLET (FP) PO PRN ×2 (10:30→16:54)
[2018-08-13] MEDS: METHYL SALICYLATE/MENTHOL OINT 30 GM TUBE TP SCH (21:08)
[2018-08-13] MEDS: LIDOCAINE PATCH REMOVAL MC SCH (21:08)
[2018-08-13] MEDS: THIAMINE HCL 100 MG TABLET (FP) PO SCH (21:09)
[2018-08-13] MEDS: OLANZapine 10 MG TABLET PO SCH (21:09)
[2018-08-13] MEDS: MELATONIN 5 MG TABLETS PO PRN (21:09)
[2018-08-13] MEDS: ACETAMINOPHEN 325 MG TABLET (FP) PO PRN (21:10)
[2018-08-14] MEDS: PRENATAL VITAMINS W/ FOLIC ACID TABLET (FP) PO SCH (09:53)
[2018-08-14] MEDS: LIDOCAINE 5% TOPICAL PATCH TP SCH (09:53)
[2018-08-14] MEDS: GABAPENTIN 300 MG CAPSULE (FP) PO SCH ×2 (09:53→21:13)
[2018-08-14] MEDS: COLCHICINE 0.6 MG TABLET (FP) PO SCH (09:53)
[2018-08-14] MEDS: BACITRACIN 3.5 GM OPTHALMIC OINT TUBE OS SCH ×2 (09:54→21:17)
[2018-08-14] MEDS: ACETAMINOPHEN 325 MG TABLET (FP) PO PRN ×2 (09:55→21:16)
[2018-08-14] MEDS: OLANZapine 10 MG TABLET PO SCH (21:13)
[2018-08-14] MEDS: THIAMINE HCL 100 MG TABLET (FP) PO SCH (21:13)
[2018-08-14] MEDS: LIDOCAINE PATCH REMOVAL MC SCH (21:13)
[2018-08-14] MEDS: MELATONIN 5 MG TABLETS PO PRN (21:15)
[2018-08-14] MEDS: METHYL SALICYLATE/MENTHOL OINT 30 GM TUBE TP SCH (21:18)
[2018-08-15] MEDS: IBUPROFEN 400 MG TABLET (FP) PO PRN (06:20)
[2018-08-15] MEDS: BACITRACIN 3.5 GM OPTHALMIC OINT TUBE OS SCH ×2 (09:41→21:09)
[2018-08-15] MEDS: COLCHICINE 0.6 MG TABLET (FP) PO SCH (09:42)
[2018-08-15] MEDS: PRENATAL VITAMINS W/ FOLIC ACID TABLET (FP) PO SCH (09:42)
[2018-08-15] MEDS: LIDOCAINE 5% TOPICAL PATCH TP SCH (09:42)
[2018-08-15] MEDS: GABAPENTIN 300 MG CAPSULE (FP) PO SCH ×2 (09:42→21:07)
[2018-08-15] MEDS: ACETAMINOPHEN 325 MG TABLET (FP) PO PRN (21:07)
[2018-08-15] MEDS: OLANZapine 10 MG TABLET PO SCH (21:07)
[2018-08-15] MEDS: THIAMINE HCL 100 MG TABLET (FP) PO SCH (21:07)
[2018-08-15] MEDS: LIDOCAINE PATCH REMOVAL MC SCH (21:08)
[2018-08-15] MEDS: METHYL SALICYLATE/MENTHOL OINT 30 GM TUBE TP SCH (21:09)
[2018-08-16] MEDS: COLCHICINE 0.6 MG TABLET (FP) PO SCH (09:36)
[2018-08-16] MEDS: PRENATAL VITAMINS W/ FOLIC ACID TABLET (FP) PO SCH (09:36)
[2018-08-16] MEDS: BACITRACIN 3.5 GM OPTHALMIC OINT TUBE OS SCH ×2 (09:36→21:14)
[2018-08-16] MEDS: GABAPENTIN 300 MG CAPSULE (FP) PO SCH ×2 (09:36→21:13)
[2018-08-16] MEDS: LIDOCAINE 5% TOPICAL PATCH TP SCH (09:36)
[2018-08-16] MEDS ORDERED: FLU VACCINE QUAD 60 MCG/0.5 ML (MDV 18-19) IM ONE (12:05)
[2018-08-16] MEDS: OLANZapine 10 MG TABLET PO SCH (21:13)
[2018-08-16] MEDS: THIAMINE HCL 100 MG TABLET (FP) PO SCH (21:13)
[2018-08-16] MEDS: LIDOCAINE PATCH REMOVAL MC SCH (21:14)
[2018-08-16] MEDS: METHYL SALICYLATE/MENTHOL OINT 30 GM TUBE TP SCH (21:14)
[2018-08-17] MEDS: COLCHICINE 0.6 MG TABLET (FP) PO SCH (09:15)
[2018-08-17] MEDS: ACETAMINOPHEN 325 MG TABLET (FP) PO PRN ×2 (09:15→21:12)
[2018-08-17] MEDS: LIDOCAINE 5% TOPICAL PATCH TP SCH (09:15)
[2018-08-17] MEDS: PRENATAL VITAMINS W/ FOLIC ACID TABLET (FP) PO SCH (09:15)
[2018-08-17] MEDS: BACITRACIN 3.5 GM OPTHALMIC OINT TUBE OS SCH ×2 (09:15→21:13)
[2018-08-17] MEDS: GABAPENTIN 300 MG CAPSULE (FP) PO SCH ×2 (09:15→21:11)
[2018-08-17] MEDS: THIAMINE HCL 100 MG TABLET (FP) PO SCH (21:11)
[2018-08-17] MEDS: OLANZapine 10 MG TABLET PO SCH (21:11)
[2018-08-17] MEDS: LIDOCAINE PATCH REMOVAL MC SCH (21:13)
[2018-08-17] MEDS: METHYL SALICYLATE/MENTHOL OINT 30 GM TUBE TP SCH (21:13)
[2018-08-18] MEDS: GABAPENTIN 300 MG CAPSULE (FP) PO SCH ×2 (09:45→23:00)
[2018-08-18] MEDS: PRENATAL VITAMINS W/ FOLIC ACID TABLET (FP) PO SCH (09:45)
[2018-08-18] MEDS: COLCHICINE 0.6 MG TABLET (FP) PO SCH (09:45)
[2018-08-18] MEDS: LIDOCAINE 5% TOPICAL PATCH TP SCH (09:46)
[2018-08-18] MEDS: IBUPROFEN 400 MG TABLET (FP) PO PRN (09:48)
[2018-08-18] MEDS: BACITRACIN 3.5 GM OPTHALMIC OINT TUBE OS SCH ×2 (09:48→23:00)
[2018-08-18] MEDS: ACETAMINOPHEN 325 MG TABLET (FP) PO PRN (16:34)
[2018-08-18] MEDS: METHYL SALICYLATE/MENTHOL OINT 30 GM TUBE TP SCH (23:00)
[2018-08-18] MEDS: MELATONIN 5 MG TABLETS PO PRN (23:00)
[2018-08-18] MEDS: THIAMINE HCL 100 MG TABLET (FP) PO SCH (23:00)
[2018-08-18] MEDS: OLANZapine 10 MG TABLET PO SCH (23:00)
[2018-08-18] MEDS: LIDOCAINE PATCH REMOVAL MC SCH (23:00)
[2018-08-19] MEDS: GABAPENTIN 300 MG CAPSULE (FP) PO SCH ×2 (09:28→21:15)
[2018-08-19] MEDS: PRENATAL VITAMINS W/ FOLIC ACID TABLET (FP) PO SCH (09:28)
[2018-08-19] MEDS: LIDOCAINE 5% TOPICAL PATCH TP SCH (09:28)
[2018-08-19] MEDS: COLCHICINE 0.6 MG TABLET (FP) PO SCH (09:28)
[2018-08-19] MEDS: IBUPROFEN 400 MG TABLET (FP) PO PRN ×2 (09:29→21:15)
[2018-08-19] MEDS: BACITRACIN 3.5 GM OPTHALMIC OINT TUBE OS SCH ×2 (09:29→21:16)
[2018-08-19] MEDS: OLANZapine 10 MG TABLET PO SCH (21:15)
[2018-08-19] MEDS: THIAMINE HCL 100 MG TABLET (FP) PO SCH (21:15)
[2018-08-19] MEDS: MELATONIN 5 MG TABLETS PO PRN (21:15)
[2018-08-19] MEDS: LIDOCAINE PATCH REMOVAL MC SCH (21:16)
[2018-08-19] MEDS: METHYL SALICYLATE/MENTHOL OINT 30 GM TUBE TP SCH (21:17)
[2018-08-20] MEDS: BACITRACIN 3.5 GM OPTHALMIC OINT TUBE OS SCH ×2 (09:17→22:08)
[2018-08-20] MEDS: COLCHICINE 0.6 MG TABLET (FP) PO SCH (09:17)
[2018-08-20] MEDS: GABAPENTIN 300 MG CAPSULE (FP) PO SCH ×2 (09:17→22:07)
[2018-08-20] MEDS: LIDOCAINE 5% TOPICAL PATCH TP SCH (09:17)
[2018-08-20] MEDS: PRENATAL VITAMINS W/ FOLIC ACID TABLET (FP) PO SCH (09:17)
[2018-08-20] MEDS: IBUPROFEN 400 MG TABLET (FP) PO PRN (14:37)
[2018-08-20] MEDS: THIAMINE HCL 100 MG TABLET (FP) PO SCH (22:07)
[2018-08-20] MEDS: OLANZapine 10 MG TABLET PO SCH (22:07)
[2018-08-20] MEDS: LIDOCAINE PATCH REMOVAL MC SCH (22:08)
[2018-08-20] MEDS: MELATONIN 5 MG TABLETS PO PRN (22:10)
[2018-08-20] MEDS: METHYL SALICYLATE/MENTHOL OINT 30 GM TUBE TP SCH (23:00)
--- NOTE | 2018-08-21 06:31 | PN ---
[facility] Progress Note Note: Patient is discharge today. Script for 30 days supply of Zyprexa 10 mg po HS is electronically transmitted to [facility] at [address] [place], [place] [id number]
[2018-08-21 06:43] VITALS: BP 140/84; PULSE 89; TEMP 98.4
[2018-08-21] MEDS: PRENATAL VITAMINS W/ FOLIC ACID TABLET (FP) PO SCH (09:54)
[2018-08-21] MEDS: COLCHICINE 0.6 MG TABLET (FP) PO SCH (09:54)
[2018-08-21] MEDS: BACITRACIN 3.5 GM OPTHALMIC OINT TUBE OS SCH (09:54)
[2018-08-21] MEDS: GABAPENTIN 300 MG CAPSULE (FP) PO SCH (09:54)
[2018-08-21] MEDS: LIDOCAINE 5% TOPICAL PATCH TP SCH (09:55)
--- NOTE | 2018-08-21 11:19 | PN ---
S Progress Note Note: PT COMPLETED REHAB AND DISCHARGED TODAY. PT HAS BEEN REFERRED TO [facility] FOR CD AFTERCARE. PT STATES HE WILL FOLLOW UP WITH PRIMARY CARE AT [facility] FOR MEDICAL MANAGEMENT. 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 PT IS ALERT O X 3. DENIES S/H/I. Home Medications Medication Instructions Recorded Colchicine [Colcrys -] 0.6 mg PO DAILY #14 tablet 08/07/18 Gabapentin [Neurontin] 300 mg PO BID #28 capsule 08/18/18 Olanzapine [ZyPREXA -] 10 mg PO HS #30 tablet 08/21/18 Vital Signs - 24 hr 08/21/18 08/21/18 08/21/18 00:30 03:30 06:40 Temperature 98.4 F Pulse Rate 89 Respiratory 18 18 16 Rate Blood Pressure 140/84 NAD MEDICALLY STABLE PLAN:FOLLOW UP WITH CD AFTERCARE AT [facility] TODAY 08/21/18 AT 10:00 A.M FOLLOW UP WITH PR[facility] AFTER DISCHARGE.
== END 2018-08-21 10:40 | disposition home or self-care (01) | DRG 772 ==
LOC: YASAS 15:20 → Y5N 15:21
PROVIDERS: ADMIT Neuromusculoskeletal Medicine & OMM; ATTEND Neuromusculoskeletal Medicine & OMM
PROC: HZ42ZZZ Group Counseling for Substance Abuse Treatment, Cognitive-Behavioral (ICD-10-PCS; principal; 2018-08-08)
DX: F10.20 Alcohol dependence, uncomplicated (principal); F14.20 Cocaine dependence, uncomplicated; F12.20 Cannabis dependence, uncomplicated; F17.213 Nicotine dependence, cigarettes, with withdrawal; F25.9 Schizoaffective disorder, unspecified; F31.9 Bipolar disorder, unspecified; F19.280 Other psychoactive substance dependence with psychoactive substance-induced anxiety disorder; H00.015 Hordeolum externum left lower eyelid; M10.9 Gout, unspecified; M19.90 Unspecified osteoarthritis, unspecified site; M25.561 Pain in right knee; M25.562 Pain in left knee; R76.11 Nonspecific reaction to tuberculin skin test without active tuberculosis
CPT/HCPCS: 90688

== ENCOUNTER 2018-09-17 22:35 | Inpatient (IN) | payer OTHER ==
--- NOTE | 2018-09-17 23:31 | HP ---
CIWA Score Nausea/Vomitin-No Nausea/No Vomiting Muscle Tremors: None Anxiety: 4-Mod. Anxious/Guarded Agitation: 4-Moderately Restless Paroxysmal Sweats: 3 Orientation: 3-Disoriented Date>2 days Tacttile Disturbances: 2-Mild Itch/Numbness/Burn Auditory Disturbances: 0-None Visual Disturbances: 0-None Headache: 0-None Present CIWA-Ar Total Score: 16 - Admission Criteria OAS Guidelines: Admission for Medically Managed Detox: Requires at least one of the followin. CIWA greater than 12 2. Seizures within the past 24 hours 3. Delirium tremens within the past 24 hours 4. Hallucinations within the past 24 hours 5. Acute intervention needed for co occurring medical disorder 6. Acute intervention needed for co occurring psychiatric disorder 7. Severe withdrawal that cannot be handled at a lower level of care (continued vomiting, continued diarrhea, abnormal vital signs) requiring intravenous medication and/or fluids 8. Patient presents the following: CIWA greater than 12 Admission Criteria Met: Admission criteria met Admission ROS [facility] Chief Complaint: HERE SEEKING DETOX FROM ALCOHOL W/ C/O WITHDRAWAL SX'S Allergies/Adverse Reactions: Allergies Allergy/AdvReac Type Severity Reaction Status Date / Time No Known Allergies Allergy Verified 08/04/18 10:15 History of Present Illness: 58 Y.O. MALE WITH EXTENSIVE HX/O ALCOHOLISM HERE FOR DETOX. CLIENT IS KNOWN TO THIS PROGRAM. SELF REFERRED TODAY WITH C/O WITHDRAWAL SX'S AND CONTINUES DRINKING BECAUSE OF THE WITHDRAWALS. CIWA 16. LAST HERE 08/2018. REPORTS LONGEST CLEAN TIME 8 MONTHS SELF SUSTAINED RELAPSING 5 YEARS AGO. DENIES ANY RECENT CLEAN TIME. DENIES HX/O SEIZURE, SI/HI. REPORTS AT TIME AUDITORY HALLUCINATION WHEN INTOXICATED. LIVES WITH FAMILY, SSI, DENIES LEGALS PMHX-LEFT EAR LYTTON PSYCH-DEPRESSION, CLAUSTROPHOBIA Exam Limitations: Intoxication - Ebola screening Have you traveled outside of the country in the last 21 days: No (N) Have you had contact with anyone from an Ebola affected area: No Do you have a fever: No - Review of Systems Constitutional: Loss of Appetite, Changes in sleep EENT: reports: Hearing Loss (LEFT EAR LYTTON), Dental Problems (MISSING TEETH) Respiratory: reports: Other (HX/O +PPD) Cardiac: reports: No Symptoms Reported GI: reports: Poor Appetite, Poor Fluid Intake, Abdominal cramping : reports: No Symptoms Reported Musculoskeletal: reports: Back Pain (CHRONIC) Integumentary: reports: Flushing, Other Neuro: reports: Numbness Endocrine: reports: No Symptoms Reported Psychiatric: reports: Anxious, Depressed Other Systems: Reviewed and Negative Patient History - Patient Medical History Hx Anemia: No Hx Asthma: No Hx Chronic Obstructive Pulmonary Disease (COPD): No Hx Cancer: No Hx Cardiac Disorders: No Hx Congestive Heart Failure: No Hx Hypertension: No Hx Hypercholesterolemia: No Hx Pacemaker: No HX Cerebrovascular Accident: No Hx Seizures: No Hx Dementia: No Hx Diabetes: No Hx Gastrointestinal Disorders: No Hx Liver Disease: No Hx Genitourinary Disorders: No Hx Sexually Transmitted Disorders: No Hx Renal Disease (ESRD): No Hx Thyroid Disease: No Hx Human Immunodeficiency Virus (HIV): No (last 07/01 negative) Hx Hepatitis C: No Hx Depression: Yes Hx Suicide Attempt: No Hx Bipolar Disorder: No Hx Schizophrenia: No - Patient Surgical History Past Surgical History: Yes Hx Neurologic Surgery: No Hx Cataract Extraction: No Hx Cardiac Surgery: No Hx Lung Surgery: No Hx Breast Surgery: No Hx Breast Biopsy: No Hx Abdominal Surgery: No Hx Appendectomy: No Hx Cholecystectomy: No Hx Genitourinary Surgery: No Hx Section: No Hx Orthopedic Surgery: Yes (LT KNEE SX) Anesthesia Reaction: No - PPD History Previous Implant?: Yes Documented Results: Positive w/o proof Implanted On Prior [facility] Admission?: No Results: 07/09/18NEG CXR PPD to be Administered?: No - Smoking Cessation Smoking history: Current some day smoker Have you smoked in the past 12 months: Yes Aproximately how many cigarettes per day: 5 Cigars Per Day: 0 Hx Chewing Tobacco Use: No Initiated information on smoking cessation: Yes 'Breaking Loose' booklet given: 09/17/18 - Substance & Tx. History Hx Alcohol Use: Yes Hx Substance Use: Yes Substance Use Type: Alcohol, Marijuana Hx Substance Use Treatment: Yes ([facility]) - Substances abused Alcohol Substance route: Oral Frequency: Daily Amount used: 1 PINT VODKA/12 BEERS Age of first use: 7 Date of last use: 09/17/18 Marijuana/Hashish Substance route: Smoking Frequency: Daily Amount used: 5 BAGS Age of first use: 20 Date of last use: 09/16/18 Family Disease History - Family Disease History Family Disease History: Diabetes: Mother (ALCOHOL AND DRUG ABUSE), Sister, Other : Grandparent (ALCOHOL AND DRUG abuse), Father (ALCOHOL AND DRUG ABUSE), Mother , Brother (alcohol,dsa) Admission Physical Exam [facility] - Physical General Appearance: Yes: Alcohol on Breath, Anxious, Other (MALODUORUS, UNKEPT) HEENTM: Yes: EOMI, Normocephalic, MISSY, Pharynx Normal, Other (MISSING TEETH) Respiratory: Yes: Chest Non-Tender, Lungs Clear, Normal Breath Sounds, No Respiratory Distress, No Accessory Muscle Use Neck: Yes: No masses,lesions,Nodules, Supple, Trachea in good position Breast: Yes: Breast Exam Deferred Cardiology: Yes: Regular Rhythm, S1, S2, Tachycardia Abdominal: Yes: Non Tender, Soft Genitourinary: Yes: Within Normal Limits Back: Yes: Normal Inspection Musculoskeletal: Yes: Other (UNSTEADY GAIT) Extremities: Yes: Normal Capillary Refill, Normal Range of Motion, Non-Tender, Tremors (FELT) Neurological: Yes: Alert, Motor Strength 5/5, Depressed Affect Integumentary: Yes: Dry, Warm (FLUSHED) Lymphatic: Yes: Within Normal Limits - Diagnostic (1) Alcohol dependence with uncomplicated withdrawal Current Visit: Yes Status: Acute (2) Substance-induced sleep disorder Current Visit: Yes Status: Acute (3) Nicotine dependence Current Visit: Yes Status: Chronic Qualifiers: Nicotine product type: cigarettes Substance use status: in withdrawal Qualified Code(s): F17.213 - Nicotine dependence, cigarettes, with withdrawal (4) Substance induced mood disorder Current Visit: Yes Status: Acute (5) Positive PPD, treated Current Visit: Yes Status: Resolved Cleared for Admission [facility] - Detox or Rehab [facility] Level of Care: Medically Managed Detox Regimen/Protocol: Librium Claeared for Rehab Admission: No Inpatient Rehab Admission - Rehab Decision to Admit Inpatient rehab admission?: No
[2018-09-17 23:48] VITALS: BMI 22.6
[2018-09-17] MEDS ORDERED: MENTHOL/PHENOL 1 EACH UD MM PRN (23:50)
[2018-09-17] MEDS ORDERED: DICYCLOMINE HCL 10 MG CAPSULE PO PRN (23:50)
[2018-09-17] MEDS ORDERED: METHOCARBAMOL 500 MG TABLET PO PRN (23:50)
[2018-09-17] MEDS ORDERED: chlordiazePOXIDE HCL 25 MG CAPSULE PO PRN (23:50)
[2018-09-17] MEDS ORDERED: ACETAMINOPHEN 325 MG TABLET (FP) PO PRN ×2 (23:50)
[2018-09-17] MEDS ORDERED: ONDANSETRON *ODT* 4 MG TABLET SL PRN (23:50)
[2018-09-17] MEDS ORDERED: MAG HYDROX/AL HYDROX/SIMETH 30 ML UNIT-DOSE CUP PO PRN (23:50)
[2018-09-17] MEDS ORDERED: hydrOXYzine PAMOATE 25 MG CAPSULE (FP) PO PRN (23:50)
[2018-09-17] MEDS ORDERED: MAGNESIUM HYDROX 2400MG/30ML ORAL SUSPENSION 30 ML CUP PO PRN (23:50)
[2018-09-17] MEDS ORDERED: MELATONIN 5 MG TABLETS PO PRN (23:50)
[2018-09-17] MEDS ORDERED: NICOTINE POLACRILEX 4 MG GUM BUC PRN (23:50)
[2018-09-17] MEDS ORDERED: BISMUTH SUBSALICYLATE 524 MG/30 ML UD PO PRN (23:50)
[2018-09-17] MEDS ORDERED: MAGNESIUM CITRATE 300 ML BOTTLE PO PRN (23:50)
[2018-09-18] MEDS: chlordiazePOXIDE HCL 25 MG CAPSULE PO SCH ×5 (00:35→22:32)
[2018-09-18 10:09] LABS: HEMATOCRIT 33.5 % (35.4-49); HEMOGLOBIN 11.2 GM/dL (11.7-16.9); MCH 29.1 pg (25.7-33.7); MCHC 33.5 g/dl (32.0-35.9); MEAN PLT VOLUME 9.4 fl (7.5-11.1); PLATELET COUNT 152 K/MM3 (134-434); RBC 3.85 M/mm3 (4.00-5.60); RDW 15.2 % (11.9-15.9); WHITE BLOOD COUNT 2.4 K/mm3 (4.0-10.0)
[2018-09-18 10:29] LABS: ALBUMIN 3.2 g/dl (3.4-5.0); ALK PHOS 88 U/L (45-117); ANION GAP 10 MMOL/L (8-16); BILIRUBIN,TOTAL 2.1 mg/dL (0.2-1); BLOOD UREA NITROGEN 10 mg/dL (7-18); CALCIUM 8.3 mg/dL (8.5-10.1); CHLORIDE 104 mmol/L (98-107); CO2 26 mmol/L (21-32); CREATININE 0.6 mg/dL (0.55-1.3); GLUCOSE,RANDOM 117 mg/dL (74-106); POTASSIUM 3.8 mmol/L (3.5-5.1); SGOT/AST 58 U/L (15-37); SGPT/ALT 61 U/L (13-61); SODIUM 139 mmol/L (136-145); TOT PROT 6.7 g/dl (6.4-8.2)
[2018-09-18] MEDS: PRENATAL VITAMINS W/ FOLIC ACID TABLET (FP) PO SCH (10:31)
[2018-09-18] MEDS: NICOTINE 14 MG/24 HOURS TOPICAL PATCH TD SCH (10:33)
--- NOTE | 2018-09-18 14:37 | PN ---
[facility] CIWA - CIWA Score Nausea/Vomitin-No Nausea/No Vomiting Muscle Tremors: None Anxiety: 4-Mod. Anxious/Guarded Agitation: 2 Paroxysmal Sweats: No Perspiration Orientation: 0-Oriented Tacttile Disturbances: 2-Mild Itch/Numbness/Burn Auditory Disturbances: 2-Mild Harshness/Frighten Visual Disturbances: 0-None Headache: 0-None Present CIWA-Ar Total Score: 10 S Progress Note (SOAP) Subjective: Interrupted Sleep, Anxious. Objective: PATIENT A & O X 3, OBSERVED AMBULATING ON UNIT. IN NO ACUTE DISTRESS. 09/18/18 14:33 Vital Signs Temperature 98 F 09/18/18 13:48 Pulse Rate 90 09/18/18 14:00 Respiratory Rate 16 09/18/18 13:48 Blood Pressure 120/72 09/18/18 13:48 O2 Sat by Pulse Oximetry (%) Laboratory Tests 09/18/18 09/18/18 09/18/18 07:00 07:00 07:00 WBC 2.4 L RBC 3.85 L Hgb 11.2 L Hct 33.5 L MCV 87.0 MCH 29.1 MCHC 33.5 RDW 15.2 D Plt Count 152 MPV 9.4 Sodium 139 Potassium 3.8 Chloride 104 Carbon Dioxide 26 Anion Gap 10 BUN 10 Creatinine 0.6 Creat Clearance w eGFR 138.38 Random Glucose 117 H Calcium 8.3 L Total Bilirubin 2.1 H AST 58 H ALT 61 Alkaline Phosphatase 88 Total Protein 6.7 Albumin 3.2 L RPR Titer Nonreactive LABS NOTED. PATIENT HAS HAD LOW WBC LEVELS AND BEEN ANEMIC ON SEVERAL PREVIOUS ADMISSIONS. 09/18/18 14:37 Assessment: 09/18/18 14:36 WITHDRAWAL SYMPTOMS. ANEMIA. LEUKOPENIA. 09/18/18 14:36 Plan: CONTINUE DETOX. PATIENT IS CURRENTLY RECEIVING DAILY MVI CONTAINING B VITAMINS AND IRON WHILE ADMITTED FOR DETOX.
[2018-09-18] MEDS: THIAMINE HCL 100 MG TABLET (FP) PO SCH (22:32)
[2018-09-19] MEDS: chlordiazePOXIDE HCL 25 MG CAPSULE PO SCH ×3 (06:12→17:34)
--- NOTE | 2018-09-19 09:26 | PN ---
S CIWA - CIWA Score Nausea/Vomitin Muscle Tremors: 2 Anxiety: 2 Agitation: 2 Paroxysmal Sweats: 1-Minimal Palms Moist Orientation: 0-Oriented Tacttile Disturbances: 1-Very Mild Itch/Numbness Auditory Disturbances: 1-Very Mild Visual Disturbances: 0-None Headache: 2-Mild CIWA-Ar Total Score: 13 [facility] Progress Note (SOAP) Subjective: alert,irritable,anxious,interrupted sleep,tremor Objective: 09/19/18 09:22 Vital Signs Temperature 98.1 F 09/19/18 07:45 Pulse Rate 84 09/19/18 07:45 Respiratory Rate 18 09/19/18 07:45 Blood Pressure 141/93 09/19/18 07:45 O2 Sat by Pulse Oximetry (%) 09/19/18 09:22 Laboratory Last Values WBC 2.4 K/mm3 (4.0-10.0) L 09/18/18 07:00 RBC 3.85 M/mm3 (4.00-5.60) L 09/18/18 07:00 Hgb 11.2 GM/dL (11.7-16.9) L 09/18/18 07:00 Hct 33.5 % (35.4-49) L 09/18/18 07:00 MCV 87.0 fl (80-96) 09/18/18 07:00 MCH 29.1 pg (25.7-33.7) 09/18/18 07:00 MCHC 33.5 g/dl (32.0-35.9) 09/18/18 07:00 RDW 15.2 % (11.9-15.9) D 09/18/18 07:00 Plt Count 152 K/MM3 (134-434) 09/18/18 07:00 MPV 9.4 fl (7.5-11.1) 09/18/18 07:00 Sodium 139 mmol/L (136-145) 09/18/18 07:00 Potassium 3.8 mmol/L (3.5-5.1) 09/18/18 07:00 Chloride 104 mmol/L (98-107) 09/18/18 07:00 Carbon Dioxide 26 mmol/L (21-32) 09/18/18 07:00 Anion Gap 10 MMOL/L (8-16) 09/18/18 07:00 BUN 10 mg/dL (7-18) 09/18/18 07:00 Creatinine 0.6 mg/dL (0.55-1.3) 09/18/18 07:00 Creat Clearance w eGFR 138.38 (>60) 09/18/18 07:00 Random Glucose 117 mg/dL (74-106) H 09/18/18 07:00 Calcium 8.3 mg/dL (8.5-10.1) L 09/18/18 07:00 Total Bilirubin 2.1 mg/dL (0.2-1) H 09/18/18 07:00 AST 58 U/L (15-37) H 09/18/18 07:00 ALT 61 U/L (13-61) 09/18/18 07:00 Alkaline Phosphatase 88 U/L (45-117) 09/18/18 07:00 Total Protein 6.7 g/dl (6.4-8.2) 09/18/18 07:00 Albumin 3.2 g/dl (3.4-5.0) L 09/18/18 07:00 RPR Titer Nonreactive (NONREACTIVE) 09/18/18 07:00 Assessment: 09/19/18 09:42 withdrawal symptom Plan: continue detox,wbc is 2400,glucose 117,bili2.1,on zyprexa,repeat cbc,cmp in am
[2018-09-19] MEDS: NICOTINE 14 MG/24 HOURS TOPICAL PATCH TD SCH (10:10)
[2018-09-19] MEDS: PRENATAL VITAMINS W/ FOLIC ACID TABLET (FP) PO SCH (10:12)
[2018-09-19] MEDS: GABAPENTIN 300 MG CAPSULE (FP) PO SCH ×2 (10:12→22:01)
--- NOTE | 2018-09-19 10:29 | PN ---
S Progress Note Note: patient would like to see psychiatrist for depression,on medications, psychiatrist consultation requested
[2018-09-19 11:21] LABS: EPI CELLS 2.4 /HPF (0-5); URINE APPEARANCE CLEAR; URINE BACTERIA 74.3 /hpf (NEGATIVE); URINE BILIRUBIN NEGATIVE (NEGATIVE); URINE CASTS 1 /hpf (0-8); URINE COLOR DK YELLOW; URINE GLUCOSE (UA) NEGATIVE (NEGATIVE); URINE KETONE NEGATIVE (NEGATIVE); URINE LEUK ESTERASE 1+ (NEGATIVE); URINE NITRITE NEGATIVE (NEGATIVE); URINE PROTEIN NEGATIVE (NEGATIVE); URINE RBC 1 /hpf (0-4); URINE WBC 7 /hpf (0-5)
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
[2018-09-19] MEDS: IBUPROFEN 400 MG TABLET (FP) PO PRN (17:36)
[2018-09-19] MEDS ORDERED: hydrOXYzine HCL 25 MG TABLET (FP) PO PRN (18:43)
[2018-09-19] MEDS ORDERED: SUVOREXANT 10 MG TABLET PO PRN (22:00)
[2018-09-19] MEDS: chlordiazePOXIDE HCL 10 MG CAPSULE PO SCH (22:01)
[2018-09-19] MEDS: THIAMINE HCL 100 MG TABLET (FP) PO SCH (22:01)
[2018-09-19] MEDS: OLANZapine 10 MG TABLET PO SCH (22:01)
[2018-09-19] MEDS ORDERED: chlordiazePOXIDE HCL 10 MG CAPSULE PO PRN (23:00)
[2018-09-20] MEDS: chlordiazePOXIDE HCL 10 MG CAPSULE PO SCH ×4 (06:13→22:06)
[2018-09-20 10:04] LABS: ALK PHOS 87 U/L (45-117); ANION GAP 7 MMOL/L (8-16); BILIRUBIN,TOTAL 0.8 mg/dL (0.2-1); BLOOD UREA NITROGEN 11 mg/dL (7-18); CALCIUM 8.9 mg/dL (8.5-10.1); CHLORIDE 103 mmol/L (98-107); CO2 26 mmol/L (21-32); CREATININE 0.6 mg/dL (0.55-1.3); GLUCOSE,RANDOM 162 mg/dL (74-106); POTASSIUM 4.1 mmol/L (3.5-5.1); SGOT/AST 36 U/L (15-37); SGPT/ALT 46 U/L (13-61); SODIUM 136 mmol/L (136-145); TOT PROT 6.4 g/dl (6.4-8.2)
[2018-09-20] MEDS: IBUPROFEN 400 MG TABLET (FP) PO PRN ×2 (10:08→17:36)
[2018-09-20] MEDS: PRENATAL VITAMINS W/ FOLIC ACID TABLET (FP) PO SCH (10:09)
[2018-09-20] MEDS: NICOTINE 14 MG/24 HOURS TOPICAL PATCH TD SCH (10:09)
[2018-09-20] MEDS: GABAPENTIN 300 MG CAPSULE (FP) PO SCH ×2 (10:09→22:06)
[2018-09-20 10:11] LABS: HEMATOCRIT 31.9 % (35.4-49); HEMOGLOBIN 10.7 GM/dL (11.7-16.9); MCH 30.2 pg (25.7-33.7); MCHC 33.6 g/dl (32.0-35.9); MEAN CELL VOLUME 89.7 fl (80-96); PLATELET COUNT 126 K/MM3 (134-434); RBC 3.55 M/mm3 (4.00-5.60); RDW 14.9 % (11.9-15.9); WHITE BLOOD COUNT 2.9 K/mm3 (4.0-10.0)
--- NOTE | 2018-09-20 14:12 | PN ---
[facility] Progress Note (SOAP) Subjective: Pt doing well with detox protocol. c/o back pain. PE: Vital Signs - 24 hr 09/19/18 09/19/18 09/20/18 17:17 21:49 00:30 Temperature 97.4 F L 97.9 F Pulse Rate 75 87 Respiratory 18 18 18 Rate Blood Pressure 141/81 145/89 09/20/18 09/20/18 09/20/18 03:30 07:03 09:23 Temperature 97.3 F L 96.8 F L Pulse Rate 67 78 Respiratory 18 18 18 Rate Blood Pressure 102/43 L 118/79 09/20/18 13:45 Temperature 98.2 F Pulse Rate 69 Respiratory 18 Rate Blood Pressure 126/73 Laboratory Tests 09/18/18 09/18/18 09/18/18 07:00 07:00 07:00 WBC 2.4 L RBC 3.85 L Hgb 11.2 L Hct 33.5 L MCV 87.0 MCH 29.1 MCHC 33.5 RDW 15.2 D Plt Count 152 MPV 9.4 Sodium 139 Potassium 3.8 Chloride 104 Carbon Dioxide 26 Anion Gap 10 BUN 10 Creatinine 0.6 Creat Clearance w eGFR 138.38 Random Glucose 117 H Calcium 8.3 L Total Bilirubin 2.1 H AST 58 H ALT 61 Alkaline Phosphatase 88 Total Protein 6.7 Albumin 3.2 L Urine Color Urine Appearance Urine pH Ur Specific [place] Urine Protein Urine Glucose (UA) Urine Ketones Urine Blood Urine Nitrite Urine Bilirubin Urine Urobilinogen Ur Leukocyte Esterase Urine WBC (Auto) Urine RBC (Auto) Urine Casts (Auto) U Epithel Cells (Auto) Urine Bacteria (Auto) RPR Titer Nonreactive 09/19/18 09/20/18 09/20/18 05:58 06:00 06:00 WBC 2.9 L RBC 3.55 L Hgb 10.7 L Hct 31.9 L MCV 89.7 MCH 30.2 MCHC 33.6 RDW 14.9 Plt Count 126 L MPV 10.0 Sodium 136 Potassium 4.1 Chloride 103 Carbon Dioxide 26 Anion Gap 7 L BUN 11 Creatinine 0.6 Creat Clearance w eGFR 138.38 Random Glucose 162 H Calcium 8.9 Total Bilirubin 0.8 AST 36 ALT 46 Alkaline Phosphatase 87 Total Protein 6.4 Albumin 3.0 L Urine Color Dk yellow Urine Appearance Clear Urine pH 6.0 Ur Specific [place] 1.016 Urine Protein Negative Urine Glucose (UA) Negative Urine Ketones Negative Urine Blood Negative Urine Nitrite Negative Urine Bilirubin Negative Urine Urobilinogen 1.0 Ur Leukocyte Esterase 1+ H Urine WBC (Auto) 7 Urine RBC (Auto) 1 Urine Casts (Auto) 1 U Epithel Cells (Auto) 2.4 Urine Bacteria (Auto) 74.3 RPR Titer anemia Hct 32 plt:152 nl VS a/p: continue alcohol detox protocol- pt doing well pt has prn meds for pain d/w pt exercises to help relieve pain
[2018-09-20] MEDS: OLANZapine 10 MG TABLET PO SCH (22:06)
[2018-09-20] MEDS: THIAMINE HCL 100 MG TABLET (FP) PO SCH (22:06)
[2018-09-21 09:05] VITALS: BP 141/85; PULSE 81; TEMP 97.2
--- NOTE | 2018-09-21 10:08 | PN ---
S Progress Note (SOAP) Subjective: alert,no complaint Objective: 09/21/18 10:10 Vital Signs Temperature 97.2 F L 09/21/18 09:04 Pulse Rate 81 09/21/18 09:04 Respiratory Rate 18 09/21/18 09:04 Blood Pressure 141/85 09/21/18 09:04 O2 Sat by Pulse Oximetry (%) Assessment: 09/21/18 10:10 detox completed,no withdrawal symptom Plan: discharge today,follow up with after care program as arrangement
[2018-09-21] MEDS: PRENATAL VITAMINS W/ FOLIC ACID TABLET (FP) PO SCH (10:16)
[2018-09-21] MEDS: NICOTINE 14 MG/24 HOURS TOPICAL PATCH TD SCH (10:16)
[2018-09-21] MEDS: GABAPENTIN 300 MG CAPSULE (FP) PO SCH (10:16)
[2018-09-21] MEDS: chlordiazePOXIDE HCL 10 MG CAPSULE PO SCH (10:16)
--- NOTE | 2018-09-21 10:16 | DS ---
[facility] Detox Discharge Summary Admission Date: 09/17/18 Discharge Date: 09/21/18 - History Present History: Alcohol Dependence Additional Comments: follow up with new focus as arrangement Pertinent Past History: nicotine dependence positive ppd depression - Physical Exam Results Vital Signs: Vital Signs Temperature 97.2 F L 09/21/18 09:04 Pulse Rate 81 09/21/18 09:04 Respiratory Rate 18 09/21/18 09:04 Blood Pressure 141/85 09/21/18 09:04 O2 Sat by Pulse Oximetry (%) Pertinent Admission Physical Exam Findings: withdrawal symptom Laboratory Last Values WBC 2.9 K/mm3 (4.0-10.0) L 09/20/18 06:00 RBC 3.55 M/mm3 (4.00-5.60) L 09/20/18 06:00 Hgb 10.7 GM/dL (11.7-16.9) L 09/20/18 06:00 Hct 31.9 % (35.4-49) L 09/20/18 06:00 MCV 89.7 fl (80-96) 09/20/18 06:00 MCH 30.2 pg (25.7-33.7) 09/20/18 06:00 MCHC 33.6 g/dl (32.0-35.9) 09/20/18 06:00 RDW 14.9 % (11.9-15.9) 09/20/18 06:00 Plt Count 126 K/MM3 (134-434) L 09/20/18 06:00 MPV 10.0 fl (7.5-11.1) 09/20/18 06:00 Sodium 136 mmol/L (136-145) 09/20/18 06:00 Potassium 4.1 mmol/L (3.5-5.1) 09/20/18 06:00 Chloride 103 mmol/L (98-107) 09/20/18 06:00 Carbon Dioxide 26 mmol/L (21-32) 09/20/18 06:00 Anion Gap 7 MMOL/L (8-16) L 09/20/18 06:00 BUN 11 mg/dL (7-18) 09/20/18 06:00 Creatinine 0.6 mg/dL (0.55-1.3) 09/20/18 06:00 Creat Clearance w eGFR 138.38 (>60) 09/20/18 06:00 Random Glucose 162 mg/dL (74-106) H 09/20/18 06:00 Calcium 8.9 mg/dL (8.5-10.1) 09/20/18 06:00 Total Bilirubin 0.8 mg/dL (0.2-1) 09/20/18 06:00 AST 36 U/L (15-37) 09/20/18 06:00 ALT 46 U/L (13-61) 09/20/18 06:00 Alkaline Phosphatase 87 U/L (45-117) 09/20/18 06:00 Total Protein 6.4 g/dl (6.4-8.2) 09/20/18 06:00 Albumin 3.0 g/dl (3.4-5.0) L 09/20/18 06:00 Urine Color Dk yellow 09/19/18 05:58 Urine Appearance Clear 09/19/18 05:58 Urine pH 6.0 (5.0-8.0) 09/19/18 05:58 Ur Specific [place] 1.016 (1.010-1.035) 09/19/18 05:58 Urine Protein Negative (NEGATIVE) 09/19/18 05:58 Urine Glucose (UA) Negative (NEGATIVE) 09/19/18 05:58 Urine Ketones Negative (NEGATIVE) 09/19/18 05:58 Urine Blood Negative (NEGATIVE) 09/19/18 05:58 Urine Nitrite Negative (NEGATIVE) 09/19/18 05:58 Urine Bilirubin Negative (NEGATIVE) 09/19/18 05:58 Urine Urobilinogen 1.0 mg/dL (0.2-1.0) 09/19/18 05:58 Ur Leukocyte Esterase 1+ (NEGATIVE) H 09/19/18 05:58 Urine WBC (Auto) 7 /hpf (0-5) 09/19/18 05:58 Urine RBC (Auto) 1 /hpf (0-4) 09/19/18 05:58 Urine Casts (Auto) 1 /hpf (0-8) 09/19/18 05:58 U Epithel Cells (Auto) 2.4 /HPF (0-5) 09/19/18 05:58 Urine Bacteria (Auto) 74.3 /hpf (NEGATIVE) 09/19/18 05:58 RPR Titer Nonreactive (NONREACTIVE) 09/18/18 07:00 - Treatment Hospital Course: Detox Protocol Followed, Detoxed Safely, Responded well, Discharged Condition Good Patient has Accepted a Rehab Referral to: declined - Medication Discharge Medications: Ambulatory Orders Colchicine [Colcrys -] 0.6 mg PO DAILY #14 tablet 08/07/18 Gabapentin [Neurontin] 300 mg PO BID #28 capsule 08/18/18 Olanzapine [ZyPREXA -] 10 mg PO HS #30 tablet 08/21/18 - Diagnosis (1) Alcohol dependence with uncomplicated withdrawal Current Visit: Yes Status: Acute (2) Substance-induced sleep disorder Current Visit: Yes Status: Acute (3) Nicotine dependence Current Visit: Yes Status: Chronic Qualifiers: Nicotine product type: cigarettes Substance use status: in withdrawal Qualified Code(s): F17.213 - Nicotine dependence, cigarettes, with withdrawal (4) Bipolar disorder Current Visit: Yes Status: Ruled-out (5) Syncope Current Visit: No Status: Acute (6) Weight decreased Current Visit: No Status: Acute (7) Insomnia Current Visit: No Status: Chronic Qualifiers: Insomnia type: unspecified Qualified Code(s): G47.00 - Insomnia, unspecified - AMA Did Patient Leave Against Medical Advice: No
== END 2018-09-21 11:58 | disposition home or self-care (01) | DRG 775 ==
LOC: YASAS 22:35 → Y6N 23:55
PROVIDERS: ADMIT Surgery; ATTEND Surgery
PROC: HZ2ZZZZ Detoxification Services for Substance Abuse Treatment (ICD-10-PCS; principal; 2018-09-17)
DX: F10.230 Alcohol dependence with withdrawal, uncomplicated (principal); F12.20 Cannabis dependence, uncomplicated; F17.213 Nicotine dependence, cigarettes, with withdrawal; F19.282 Other psychoactive substance dependence with psychoactive substance-induced sleep disorder; F31.9 Bipolar disorder, unspecified; F25.9 Schizoaffective disorder, unspecified; G47.00 Insomnia, unspecified; R00.0 Tachycardia, unspecified; R76.11 Nonspecific reaction to tuberculin skin test without active tuberculosis; M10.9 Gout, unspecified; H91.92 Unspecified hearing loss, left ear; D64.9 Anemia, unspecified; D72.819 Decreased white blood cell count, unspecified
CPT/HCPCS: 36415; 80053; 81003; 85027; 86593

== ENCOUNTER 2018-09-30 23:02 | Inpatient (IN) | payer OTHER ==
--- NOTE | 2018-09-30 23:21 | HP ---
COWS - Scale Resting Pulse: 1= MD 81-100 Sweatin=Flushed/Facial Moisture Restless Observation: 1= Difficult to Sit Still Pupil Size: 1= Pupils >than Normal Bone or Joint Aches: 2= Severe Diffuse Aches Runny Nose/ Eye Tearin= Nasal Congestion GI Upset > 30mins: 1= Stomach Cramp Tremor Observation: 4= Gross Tremor/Twitching Yawning Observation: 0= None Anxiety or Irritability: 1=Feels Anxious/Irritable Goose Flesh Skin: 0=Smooth Skin COWS Score: 14 CIWA Score Nausea/Vomitin Muscle Tremors: 3 Anxiety: 3 Agitation: 3 Paroxysmal Sweats: 2 Orientation: 1-Uncertain about Date Tacttile Disturbances: 2-Mild Itch/Numbness/Burn Auditory Disturbances: 3-Moderate Harsh/Frighten Visual Disturbances: 3-Moderate Sensitivity Headache: 3-Moderate CIWA-Ar Total Score: 26 - Admission Criteria OASAS Guidelines: Admission for Medically Managed Detox: Requires at least one of the followin. CIWA greater than 12 2. Seizures within the past 24 hours 3. Delirium tremens within the past 24 hours 4. Hallucinations within the past 24 hours 5. Acute intervention needed for co occurring medical disorder 6. Acute intervention needed for co occurring psychiatric disorder 7. Severe withdrawal that cannot be handled at a lower level of care (continued vomiting, continued diarrhea, abnormal vital signs) requiring intravenous medication and/or fluids 8. Admission ROS S - HPI Chief Complaint: DEPENDENT ON ETOH, HEROIN AND MARIJUANA Allergies/Adverse Reactions: Allergies Allergy/AdvReac Type Severity Reaction Status Date / Time No Known Allergies Allergy Verified 09/25/18 16:54 History of Present Illness: THE PT. IS REQUESTING ADMISSION TO THE DETOX UNIT AND CAME FOR H AND PE AND MEDICAL CLEARANCE. - Ebola screening Have you traveled outside of the country in the last 21 days: No (N) Have you had contact with anyone from an Ebola affected area: No Have you been sick,other than usual withdrawal symptoms: No Do you have a fever: No - Review of Systems Constitutional: See HPI, Loss of Appetite, Malaise, Weakness, Unintentional Wgt. Loss EENT: reports: See HPI Respiratory: reports: See HPI Cardiac: reports: See HPI, Syncope GI: reports: See HPI, Diarrhea, Nausea, Poor Appetite, Abdominal cramping : reports: See HPI Musculoskeletal: reports: See HPI, Muscle Pain, Muscle Weakness Integumentary: reports: See HPI, Flushing, Sweating Neuro: reports: See HPI, Headache, Tremors, Weakness, Unsteady Gait Endocrine: reports: See HPI Hematology: reports: See HPI Psychiatric: reports: Orientated x3, Agitated, Anxious, Depressed Patient History - Patient Medical History Hx Anemia: No Hx Asthma: No Hx Chronic Obstructive Pulmonary Disease (COPD): No Hx Cancer: No Hx Cardiac Disorders: No Hx Congestive Heart Failure: No Hx Hypertension: No Hx Hypercholesterolemia: No Hx Pacemaker: No HX Cerebrovascular Accident: No Hx Seizures: No Hx Dementia: No Hx Diabetes: No Hx Gastrointestinal Disorders: No Hx Liver Disease: No Hx Genitourinary Disorders: No Hx Sexually Transmitted Disorders: No Hx Renal Disease (ESRD): No Hx Thyroid Disease: No Hx Human Immunodeficiency Virus (HIV): No (last 07/01 negative) Hx Hepatitis C: No Hx Depression: Yes Hx Suicide Attempt: No Hx Bipolar Disorder: No Hx Schizophrenia: No - Patient Surgical History Past Surgical History: Yes Hx Neurologic Surgery: No Hx Cataract Extraction: No Hx Cardiac Surgery: No Hx Lung Surgery: No Hx Breast Surgery: No Hx Breast Biopsy: No Hx Abdominal Surgery: No Hx Appendectomy: No Hx Cholecystectomy: No Hx Genitourinary Surgery: No Hx Section: No Hx Orthopedic Surgery: Yes (LT KNEE SX) Anesthesia Reaction: No - PPD History Results: 07/09/18NEG CXR - Smoking Cessation Smoking history: Current some day smoker Have you smoked in the past 12 months: Yes Aproximately how many cigarettes per day: 5 Cigars Per Day: 0 Hx Chewing Tobacco Use: No Initiated information on smoking cessation: Yes 'Breaking Loose' booklet given: 09/30/18 - Substance & Tx. History Hx Alcohol Use: Yes Substance Use Type: Alcohol, Heroin, Marijuana Hx Substance Use Treatment: Yes - Substances abused Alcohol Substance route: Oral Frequency: Daily Amount used: 1 PINT VODKA/12 BEERS Age of first use: 7 Date of last use: 09/25/18 Marijuana/Hashish Substance route: Smoking Frequency: Daily Amount used: 5 BAGS Age of first use: 20 Date of last use: 09/25/18 Heroin Substance route: Inhalation Frequency: Daily Amount used: 2/D Age of first use: 35 Date of last use: 09/30/18 Family Disease History - Family Disease History Family Disease History: Diabetes: Mother (ALCOHOL AND DRUG ABUSE), Sister, Other : Grandparent (ALCOHOL AND DRUG abuse), Father (ALCOHOL AND DRUG ABUSE), Mother , Brother (alcohol,dsa) Admission Physical Exam [facility] - Physical General Appearance: Yes: No Apparent Distress, Appropriately Dressed, Alcohol on Breath, Intoxicated, Thin, Tremorous HEENTM: Yes: Hearing grossly Normal, Normocephalic, Normal Voice, MISSY, Pharynx Normal Respiratory: Yes: Chest Non-Tender, Lungs Clear, Normal Breath Sounds, No Respiratory Distress, No Accessory Muscle Use Neck: Yes: No masses,lesions,Nodules, Supple, Trachea in good position Breast: Yes: Breast Exam Deferred, Mass present Left breast Cardiology: Yes: Regular Rhythm, S1, S2, Tachycardia Abdominal: Yes: Normal Bowel Sounds, Non Tender, Soft, Hepatomegaly Back: Yes: Normal Inspection, Decreased Range of Motion Musculoskeletal: Yes: Muscle Pain, Muscle weakness Extremities: Yes: Normal Capillary Refill, Non-Tender, Tremors Neurological: Yes: Alert, Motor Strength 5/5, Confused, Depressed Affect Integumentary: Yes: Warm, Erythema, Moist Lymphatic: Yes: Within Normal Limits Cleared for Admission [facility] - Detox or Rehab [facility] Level of Care: Medically Managed Detox Regimen/Protocol: Librium Breathalyzer - Breathalyzer Breathalyzer: 0.168 Urine Drug Screen - Test Device Lot number: [id number] Expiration date: 05/12/20 - Control Is test valid?: Yes - Results Drug screen NEGATIVE: No Urine drug screen results: THC-Marijuana, BZO-Benzodiazepines Inpatient Rehab Admission - Rehab Decision to Admit Inpatient rehab admission?: No
[2018-09-30] MEDS ORDERED: hydrOXYzine PAMOATE 25 MG CAPSULE (FP) PO PRN (23:27)
[2018-09-30] MEDS ORDERED: NICOTINE POLACRILEX 2 MG GUM BUC PRN (23:27)
[2018-09-30] MEDS ORDERED: chlordiazePOXIDE HCL 25 MG CAPSULE PO PRN (23:27)
[2018-09-30] MEDS ORDERED: MENTHOL/PHENOL 1 EACH UD MM PRN (23:27)
[2018-09-30] MEDS ORDERED: METHOCARBAMOL 500 MG TABLET PO PRN (23:27)
[2018-09-30] MEDS ORDERED: MAG HYDROX/AL HYDROX/SIMETH 30 ML UNIT-DOSE CUP PO PRN (23:27)
[2018-09-30] MEDS ORDERED: BISMUTH SUBSALICYLATE 524 MG/30 ML UD PO PRN (23:27)
[2018-09-30] MEDS ORDERED: ACETAMINOPHEN 325 MG TABLET (FP) PO PRN ×2 (23:27)
[2018-09-30] MEDS ORDERED: MAGNESIUM HYDROX 2400MG/30ML ORAL SUSPENSION 30 ML CUP PO PRN (23:27)
[2018-09-30] MEDS ORDERED: MAGNESIUM CITRATE 300 ML BOTTLE PO PRN (23:27)
[2018-09-30 23:52] VITALS: BMI 23.3
[2018-10-01] MEDS: chlordiazePOXIDE HCL 25 MG CAPSULE PO SCH ×5 (00:31→22:45)
[2018-10-01] MEDS: MELATONIN 5 MG TABLETS PO PRN ×2 (00:33→22:45)
[2018-10-01 10:25] LABS: ALBUMIN 3.1 g/dl (3.4-5.0); ALK PHOS 70 U/L (45-117); ANION GAP 9 MMOL/L (8-16); BILIRUBIN,TOTAL 0.6 mg/dL (0.2-1); BLOOD UREA NITROGEN 15 mg/dL (7-18); CALCIUM 8.5 mg/dL (8.5-10.1); CHLORIDE 105 mmol/L (98-107); CO2 24 mmol/L (21-32); CREATININE 0.7 mg/dL (0.55-1.3); GLUCOSE,RANDOM 109 mg/dL (74-106); POTASSIUM 3.9 mmol/L (3.5-5.1); SGOT/AST 36 U/L (15-37); SGPT/ALT 40 U/L (13-61); SODIUM 137 mmol/L (136-145); TOT PROT 6.6 g/dl (6.4-8.2)
[2018-10-01] MEDS: NICOTINE 14 MG/24 HOURS TOPICAL PATCH TD SCH (10:33)
[2018-10-01] MEDS: PRENATAL VITAMINS W/ FOLIC ACID TABLET (FP) PO SCH (10:33)
[2018-10-01 10:38] LABS: HEMATOCRIT 30.4 % (35.4-49); HEMOGLOBIN 10.2 GM/dL (11.7-16.9); MCHC 33.5 g/dl (32.0-35.9); MEAN CELL VOLUME 89.5 fl (80-96); MEAN PLT VOLUME 9.2 fl (7.5-11.1); PLATELET COUNT 221 K/MM3 (134-434); RBC 3.39 M/mm3 (4.00-5.60); RDW 15.8 % (11.9-15.9); WHITE BLOOD COUNT 2.4 K/mm3 (4.0-10.0)
--- NOTE | 2018-10-01 16:13 | PN ---
[facility] CIWA - CIWA Score Nausea/Vomitin-Mild Nausea/No Vomiting Muscle Tremors: 4-Moderate,w/Arms Extend Anxiety: 4-Mod. Anxious/Guarded Agitation: 4-Moderately Restless Paroxysmal Sweats: 5 Orientation: 0-Oriented Tacttile Disturbances: 0-None Auditory Disturbances: 0-None Visual Disturbances: 0-None Headache: 1-Very Mild CIWA-Ar Total Score: 19 [facility] Progress Note (SOAP) Subjective: Patient denies withdrawal symptoms presently stating the medications have been very good. Patient is anxious and restless. Objective: 10/01/18 16:09 Last Vital Signs Temp Pulse Resp BP Pulse Ox 98.6 F 80 18 108/50 L 10/01/18 14:29 10/01/18 16:00 10/01/18 16:00 10/01/18 14:29 Laboratory Tests 10/01/18 10/01/18 10/01/18 07:40 07:40 07:40 WBC 2.4 L RBC 3.39 L Hgb 10.2 L Hct 30.4 L MCV 89.5 MCH 30.0 MCHC 33.5 RDW 15.8 Plt Count 221 D MPV 9.2 Sodium 137 Potassium 3.9 Chloride 105 Carbon Dioxide 24 Anion Gap 9 BUN 15 Creatinine 0.7 Creat Clearance w eGFR 115.83 Random Glucose 109 H Calcium 8.5 Total Bilirubin 0.6 AST 36 ALT 40 Alkaline Phosphatase 70 Total Protein 6.6 Albumin 3.1 L RPR Titer Nonreactive Labs reviewed: anemia noted (h/h 10.2/30.4) Assessment: 10/01/18 16:11 Withdrawal symptoms Noted with anemia Plan: Continue detox Encouraged PO water hydration Anemia: most likely due to chronic substance use, currently stable, follow up with PCP for management
[2018-10-01] MEDS: IBUPROFEN 400 MG TABLET (FP) PO PRN (22:41)
[2018-10-01] MEDS: THIAMINE HCL 100 MG TABLET (FP) PO SCH (22:42)
[2018-10-02] MEDS: chlordiazePOXIDE HCL 25 MG CAPSULE PO SCH ×3 (05:20→17:07)
[2018-10-02] MEDS: IBUPROFEN 400 MG TABLET (FP) PO PRN ×2 (10:26→22:08)
[2018-10-02] MEDS: PRENATAL VITAMINS W/ FOLIC ACID TABLET (FP) PO SCH (10:27)
[2018-10-02] MEDS: NICOTINE 14 MG/24 HOURS TOPICAL PATCH TD SCH (10:27)
--- NOTE | 2018-10-02 15:10 | PN ---
[facility] CIWA - CIWA Score Nausea/Vomitin-No Nausea/No Vomiting Muscle Tremors: 2 Anxiety: 2 Agitation: 2 Paroxysmal Sweats: 2 Orientation: 0-Oriented Tacttile Disturbances: 0-None Auditory Disturbances: 0-None Visual Disturbances: 0-None Headache: 0-None Present CIWA-Ar Total Score: 8 [facility] Progress Note (SOAP) Subjective: PATIENT C/O ANXIETY, SHAKES, RESTLESSNESS AND SWEATING. Objective: 10/02/18 15:09 Vital Signs Period Temp Pulse Resp BP Sys/Coelho Pulse Ox Last 24 Hr 97.7 F-99.5 F 60-88 16-18 124-151/70-90 Laboratory Tests 10/01/18 10/01/18 10/01/18 07:40 07:40 07:40 WBC 2.4 L RBC 3.39 L Hgb 10.2 L Hct 30.4 L MCV 89.5 MCH 30.0 MCHC 33.5 RDW 15.8 Plt Count 221 D MPV 9.2 Sodium 137 Potassium 3.9 Chloride 105 Carbon Dioxide 24 Anion Gap 9 BUN 15 Creatinine 0.7 Creat Clearance w eGFR 115.83 Random Glucose 109 H Calcium 8.5 Total Bilirubin 0.6 AST 36 ALT 40 Alkaline Phosphatase 70 Total Protein 6.6 Albumin 3.1 L RPR Titer Nonreactive PE: ALERT AND ORIENTED X 3 SKIN WARM AND DRY EXT FULL ROM, +TREMORS ANXIOUS 10/02/18 15:10 Assessment: 10/02/18 15:11 WITHDRAWAL SX Plan: CONTINUED DETOX PSYCH CONSULT ENCOURAGE FLUIDS MONITOR CLINICALLY
[2018-10-02] MEDS: THIAMINE HCL 100 MG TABLET (FP) PO SCH (22:07)
[2018-10-02] MEDS: MELATONIN 5 MG TABLETS PO PRN (22:07)
[2018-10-02] MEDS: chlordiazePOXIDE HCL 10 MG CAPSULE PO SCH (22:07)
[2018-10-02] MEDS ORDERED: chlordiazePOXIDE HCL 10 MG CAPSULE PO PRN (23:00)
[2018-10-03] MEDS: chlordiazePOXIDE HCL 10 MG CAPSULE PO SCH (05:59)
[2018-10-03 06:42] VITALS: BP 140/77; PULSE 64; TEMP 97
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
--- NOTE | 2018-10-03 09:30 | DS ---
[facility] Detox Discharge Summary Admission Date: 09/30/18 Discharge Date: 10/03/18 - History Present History: Alcohol Dependence, Cocaine Dependence - Physical Exam Results Vital Signs: Vital Signs Temperature 97.0 F L 10/03/18 06:42 Pulse Rate 64 10/03/18 06:42 Respiratory Rate 18 10/03/18 06:42 Blood Pressure 140/77 10/03/18 06:42 O2 Sat by Pulse Oximetry (%) - Treatment Hospital Course: Detox Protocol Followed, Detoxed Safely, Responded well, Discharged Condition Good, Rehab Referral Accepted - Medication Discharge Medications: Ambulatory Orders Gabapentin [Neurontin] 300 mg PO BID #28 capsule 08/18/18 Olanzapine [ZyPREXA -] 10 mg PO HS #30 tablet 08/21/18 - Diagnosis (1) Alcohol dependence with uncomplicated withdrawal Current Visit: Yes Status: Chronic (2) Cocaine dependence Current Visit: Yes Status: Chronic (3) Drug-induced mood disorder Current Visit: No Status: Acute (4) Substance induced mood disorder Current Visit: No Status: Acute (5) Substance-induced sleep disorder Current Visit: No Status: Acute (6) Syncope Current Visit: No Status: Acute (7) Weight decreased Current Visit: No Status: Acute (8) cannabis dependence Current Visit: Yes Status: Acute (9) Alcohol-induced mood disorder Current Visit: No Status: Chronic (10) Alcohol-induced sleep disorder Current Visit: No Status: Chronic (11) Anxiety and depression Current Visit: No Status: Chronic (12) Depression Current Visit: No Status: Chronic Qualifiers: Depression Type: unspecified Qualified Code(s): F32.9 - Major depressive disorder, single episode, unspecified (13) Gout Current Visit: Yes Status: Chronic Qualifiers: Gout site: unspecified site Chronicity: unspecified (14) Hearing loss in left ear Current Visit: No Status: Chronic (15) Insomnia Current Visit: No Status: Chronic Qualifiers: Insomnia type: unspecified Qualified Code(s): G47.00 - Insomnia, unspecified (16) Knee pain Current Visit: No Status: Chronic Qualifiers: Chronicity: chronic Laterality: bilateral Qualified Code(s): M25.561 - Pain in right knee; M25.562 - Pain in left knee; G89.29 - Other chronic pain (17) Nicotine dependence Current Visit: Yes Status: Chronic Qualifiers: Nicotine product type: cigarettes Substance use status: in withdrawal Qualified Code(s): F17.213 - Nicotine dependence, cigarettes, with withdrawal (18) Non compliance w medication regimen Current Visit: No Status: Chronic (19) Schizoaffective disorder Current Visit: No Status: Chronic (20) Schizoaffective disorder Current Visit: No Status: Chronic (21) Positive PPD, treated Current Visit: No Status: Resolved (22) Bipolar disorder Current Visit: No Status: Ruled-out (23) Bipolar disorder Current Visit: No Status: Ruled-out - AMA Did Patient Leave Against Medical Advice: No (going home then rehab. )
[2018-10-03] MEDS ORDERED: chlordiazePOXIDE HCL 10 MG CAPSULE PO SCH (23:00)
== END 2018-10-03 10:10 | disposition home or self-care (01) | DRG 774 ==
LOC: YASAS 23:02 → Y6N 23:45
PROVIDERS: ADMIT Surgery; ATTEND Surgery
PROC: HZ2ZZZZ Detoxification Services for Substance Abuse Treatment (ICD-10-PCS; principal; 2018-09-30)
DX: F10.230 Alcohol dependence with withdrawal, uncomplicated (principal); F10.24 Alcohol dependence with alcohol-induced mood disorder; F10.282 Alcohol dependence with alcohol-induced sleep disorder; F14.20 Cocaine dependence, uncomplicated; F12.20 Cannabis dependence, uncomplicated; F17.213 Nicotine dependence, cigarettes, with withdrawal; F19.24 Other psychoactive substance dependence with psychoactive substance-induced mood disorder; F19.282 Other psychoactive substance dependence with psychoactive substance-induced sleep disorder; F41.9 Anxiety disorder, unspecified; F32.9 Major depressive disorder, single episode, unspecified; F25.9 Schizoaffective disorder, unspecified; F31.9 Bipolar disorder, unspecified; G47.00 Insomnia, unspecified; H91.92 Unspecified hearing loss, left ear; R63.4 Abnormal weight loss; M10.9 Gout, unspecified; M25.561 Pain in right knee; M25.562 Pain in left knee; G89.29 Other chronic pain; R76.11 Nonspecific reaction to tuberculin skin test without active tuberculosis; D64.9 Anemia, unspecified; Z91.14 Patient's other noncompliance with medication regimen
CPT/HCPCS: 36415; 80053; 85027; 86593

== ENCOUNTER 2018-10-04 16:17 | Inpatient (IN) | payer OTHER ==
[2018-10-04 19:49] VITALS: BMI 22.6
--- NOTE | 2018-10-04 20:37 | HP ---
CIWA Score - Admission Criteria OASAS Guidelines: Admission for Medically Managed Detox: Requires at least one of the followin. CIWA greater than 12 2. Seizures within the past 24 hours 3. Delirium tremens within the past 24 hours 4. Hallucinations within the past 24 hours 5. Acute intervention needed for co occurring medical disorder 6. Acute intervention needed for co occurring psychiatric disorder 7. Severe withdrawal that cannot be handled at a lower level of care (continued vomiting, continued diarrhea, abnormal vital signs) requiring intravenous medication and/or fluids 8. Admission ROS S - HPI Chief Complaint: Seeking admission to Rehab. Allergies/Adverse Reactions: Allergies Allergy/AdvReac Type Severity Reaction Status Date / Time No Known Allergies Allergy Verified 10/04/18 19:45 History of Present Illness: 58 years old male with a long history of heroin dependence is seeking admission to Rehab. Patient was here in detox for the period 08/30/2018 - 09/02/2018. He has medical history of depression, left ear hearing loss, gout and PPD positive. Patient denies suicidal ideation at this time Exam Limitations: No Limitations - Ebola screening Have you traveled outside of the country in the last 21 days: No (N) Have you had contact with anyone from an Ebola affected area: No Do you have a fever: No - Review of Systems Constitutional: No Symptoms Reported EENT: reports: No Symptoms Reported Respiratory: reports: No Symptoms reported Cardiac: reports: No Symptoms Reported GI: reports: No Symptoms Reported : reports: No Symptoms Reported Musculoskeletal: reports: No Symptoms Reported Integumentary: reports: No Symptoms Reported Neuro: reports: No Symptoms reported Endocrine: reports: No Symptoms Reported Hematology: reports: No Symptoms Reported Psychiatric: reports: No Sypmtoms Reported, Mood/Affect Appropiate, Orientated x3 Other Systems: Reviewed and Negative Patient History - Patient Medical History Hx Anemia: No Hx Asthma: No Hx Chronic Obstructive Pulmonary Disease (COPD): No Hx Cancer: No Hx Cardiac Disorders: No Hx Congestive Heart Failure: No Hx Hypertension: No Hx Hypercholesterolemia: No Hx Pacemaker: No HX Cerebrovascular Accident: No Hx Seizures: No Hx Dementia: No Hx Diabetes: No Hx Gastrointestinal Disorders: No Hx Liver Disease: No Hx Genitourinary Disorders: No Hx Sexually Transmitted Disorders: No Hx Renal Disease (ESRD): No Hx Thyroid Disease: No Hx Human Immunodeficiency Virus (HIV): No (Negative June 2018) Hx Hepatitis C: No Hx Depression: Yes (N ot on medication) Hx Suicide Attempt: No Hx Bipolar Disorder: No Hx Schizophrenia: No - Patient Surgical History Past Surgical History: Yes Hx Neurologic Surgery: No Hx Cataract Extraction: No Hx Cardiac Surgery: No Hx Lung Surgery: No Hx Breast Surgery: No Hx Breast Biopsy: No Hx Abdominal Surgery: No Hx Appendectomy: No Hx Cholecystectomy: No Hx Genitourinary Surgery: No Hx Section: No Hx Orthopedic Surgery: Yes (LEFT KNEE SURGERY 1984) Anesthesia Reaction: No - PPD History Previous Implant?: No Documented Results: Positive w/proof Implanted On Prior [facility] Admission?: No Results: 07/09/18NEG CXR PPD to be Administered?: No - Reproductive History Patient is a Female of Child Bearing Age (11 -55 yrs old): No (MALE) - Smoking Cessation Smoking history: Current some day smoker Have you smoked in the past 12 months: Yes Aproximately how many cigarettes per day: 5 Cigars Per Day: 0 Hx Chewing Tobacco Use: No Initiated information on smoking cessation: Yes 'Breaking Loose' booklet given: 10/04/18 - Substance & Tx. History Hx Alcohol Use: Yes Hx Substance Use: Yes Substance Use Type: Alcohol, Marijuana Hx Substance Use Treatment: Yes ([facility]) - Substances abused Alcohol Substance route: Oral Frequency: Daily Amount used: 1 PINT VODKA/12 BEERS Age of first use: 7 Date of last use: 09/25/18 Marijuana/Hashish Substance route: Smoking Frequency: Daily Amount used: 5 BAGS Age of first use: 20 Date of last use: 09/25/18 Heroin Substance route: Inhalation Frequency: Daily Amount used: 2/D Age of first use: 35 Date of last use: 09/30/18 Family Disease History - Family Disease History Family Disease History: Diabetes: Mother (ALCOHOL AND DRUG ABUSE), Sister, Other : Grandparent (ALCOHOL AND DRUG abuse), Father (ALCOHOL AND DRUG ABUSE), Mother , Brother (alcohol,dsa) Admission Physical Exam S - Vital Signs Vital Signs: Vital Signs - 24 hr 10/04/18 10/04/18 19:44 20:11 Temperature 98.6 F 98.6 F Pulse Rate 80 80 Respiratory 18 18 Rate Blood Pressure 121/71 121/71 - Physical General Appearance: Yes: Within Normal Limits, Nourished, Appropriately Dressed HEENTM: Yes: EOMI, Hearing grossly Normal, Normal ENT Inspection, Normocephalic , Normal Voice, MISSY Respiratory: Yes: Lungs Clear, Normal Breath Sounds, No Respiratory Distress Breast: Yes: Breast Exam Deferred Cardiology: Yes: Regular Rhythm, Regular Rate Abdominal: Yes: Normal Bowel Sounds Genitourinary: Yes: Within Normal Limits Back: Yes: Normal Inspection Musculoskeletal: Yes: Within Normal Limits Extremities: Yes: Within Normal Limits Neurological: Yes: nurse midwife II-XII NML intact, Alert, Normal Mood/Affect Integumentary: Yes: Warm Lymphatic: Yes: Within Normal Limits - Diagnostic (1) Alcohol dependence Current Visit: Yes Status: Chronic Qualifiers: Substance use status: uncomplicated Qualified Code(s): F10.20 - Alcohol dependence, uncomplicated (2) cannabis dependence Current Visit: Yes Status: Chronic (3) Depression Current Visit: Yes Status: Chronic Qualifiers: Depression Type: unspecified Qualified Code(s): F32.9 - Major depressive disorder, single episode, unspecified (4) Gout Current Visit: Yes Status: Chronic Qualifiers: Gout site: unspecified site Chronicity: unspecified (5) Hearing loss in left ear Current Visit: Yes Status: Chronic (6) Nicotine dependence Current Visit: Yes Qualifiers: Nicotine product type: cigarettes Substance use status: uncomplicated Qualified Code(s): F17.210 - Nicotine dependence, cigarettes, uncomplicated (7) Positive PPD, treated Current Visit: Yes Status: Resolved Cleared for Admission S - Detox or Rehab [facility] Level of Care: Observation Bed Claeared for Rehab Admission: Yes Breathalyzer - Breathalyzer Breathalyzer: 0 Urine Drug Screen - Test Device Lot number: [id number] Expiration date: 05/12/20 - Control Is test valid?: Yes - Results Drug screen NEGATIVE: No Urine drug screen results: THC-Marijuana, BZO-Benzodiazepines Inpatient Rehab Admission - Rehab Decision to Admit Inpatient rehab admission?: Yes - Initial Determination Are CD services needed?: No Free of communicable disease: No Not in need of hospitalization: Yes - Rehab Admission Criteria Previous failed treatment: Yes Poor recovery environment: Yes Comorbidities: Yes Lacks judgement: Yes Patient is meeting Inpatient Rehab admission criteria:: Yes
--- NOTE | 2018-10-04 20:40 | HP ---
CIWA Score - Admission Criteria OASAS Guidelines: Admission for Medically Managed Detox: Requires at least one of the followin. CIWA greater than 12 2. Seizures within the past 24 hours 3. Delirium tremens within the past 24 hours 4. Hallucinations within the past 24 hours 5. Acute intervention needed for co occurring medical disorder 6. Acute intervention needed for co occurring psychiatric disorder 7. Severe withdrawal that cannot be handled at a lower level of care (continued vomiting, continued diarrhea, abnormal vital signs) requiring intravenous medication and/or fluids 8. Admission ROS S - HPI Chief Complaint: Seeking admission to Rehab Allergies/Adverse Reactions: Allergies Allergy/AdvReac Type Severity Reaction Status Date / Time No Known Allergies Allergy Verified 10/04/18 19:45 - Ebola screening Have you traveled outside of the country in the last 21 days: No (N) Have you had contact with anyone from an Ebola affected area: No Do you have a fever: No Patient History - Patient Medical History Hx Anemia: No Hx Asthma: No Hx Chronic Obstructive Pulmonary Disease (COPD): No Hx Cancer: No Hx Cardiac Disorders: No Hx Congestive Heart Failure: No Hx Hypertension: No Hx Hypercholesterolemia: No Hx Pacemaker: No HX Cerebrovascular Accident: No Hx Seizures: No Hx Dementia: No Hx Diabetes: No Hx Gastrointestinal Disorders: No Hx Liver Disease: No Hx Genitourinary Disorders: No Hx Sexually Transmitted Disorders: No Hx Renal Disease (ESRD): No Hx Thyroid Disease: No Hx Human Immunodeficiency Virus (HIV): No (last 07/01 negative) Hx Hepatitis C: No Hx Depression: Yes Hx Suicide Attempt: No Hx Bipolar Disorder: No Hx Schizophrenia: No - Patient Surgical History Past Surgical History: Yes Hx Neurologic Surgery: No Hx Cataract Extraction: No Hx Cardiac Surgery: No Hx Lung Surgery: No Hx Breast Surgery: No Hx Breast Biopsy: No Hx Abdominal Surgery: No Hx Appendectomy: No Hx Cholecystectomy: No Hx Genitourinary Surgery: No Hx Section: No Hx Orthopedic Surgery: Yes (LT KNEE SX) Anesthesia Reaction: No - PPD History Results: 07/09/18NEG CXR - Smoking Cessation Smoking history: Current some day smoker Have you smoked in the past 12 months: Yes Aproximately how many cigarettes per day: 5 Cigars Per Day: 0 Hx Chewing Tobacco Use: No - Substances abused Alcohol Substance route: Oral Frequency: Daily Amount used: 1 PINT VODKA/12 BEERS Age of first use: 7 Date of last use: 09/25/18 Marijuana/Hashish Substance route: Smoking Frequency: Daily Amount used: 5 BAGS Age of first use: 20 Date of last use: 09/25/18 Heroin Substance route: Inhalation Frequency: Daily Amount used: 2/D Age of first use: 35 Date of last use: 09/30/18 Family Disease History - Family Disease History Family Disease History: Diabetes: Mother (ALCOHOL AND DRUG ABUSE), Sister, Other : Grandparent (ALCOHOL AND DRUG abuse), Father (ALCOHOL AND DRUG ABUSE), Mother , Brother (alcohol,dsa) Admission Physical Exam [facility] - Vital Signs Vital Signs: Vital Signs - 24 hr 10/04/18 10/04/18 19:44 20:11 Temperature 98.6 F 98.6 F Pulse Rate 80 80 Respiratory 18 18 Rate Blood Pressure 121/71 121/71 Breathalyzer - Breathalyzer Breathalyzer: 0 Urine Drug Screen - Test Device Lot number: [id number] Expiration date: 05/12/20 - Control Is test valid?: Yes - Results Drug screen NEGATIVE: No Urine drug screen results: THC-Marijuana, BZO-Benzodiazepines
[2018-10-04] MEDS ORDERED: LOPERAMIDE HCL 2 MG CAPSULE PO PRN (20:54)
[2018-10-04] MEDS ORDERED: NICOTINE POLACRILEX 2 MG GUM BUC PRN (20:54)
[2018-10-04] MEDS ORDERED: MAGNESIUM HYDROX 2400MG/30ML ORAL SUSPENSION 30 ML CUP PO PRN (20:54)
[2018-10-04] MEDS ORDERED: MENTHOL/PHENOL 1 EACH UD MM PRN (20:54)
[2018-10-04] MEDS ORDERED: MAG HYDROX/AL HYDROX/SIMETH 30 ML UNIT-DOSE CUP PO PRN (20:54)
[2018-10-04] MEDS ORDERED: P-EPHED 60MG/TRIPROLIDI 2.5MG TABLET PO PRN (20:54)
[2018-10-04] MEDS ORDERED: guaiFENesin 200 MG/10 ML 10 ML UNIT-DOSE CUPS PO PRN (20:54)
[2018-10-04] MEDS ORDERED: MAGNESIUM CITRATE 300 ML BOTTLE PO PRN (20:54)
[2018-10-04] MEDS: hydrOXYzine PAMOATE 25 MG CAPSULE (FP) PO PRN (23:08)
[2018-10-04] MEDS: THIAMINE HCL 100 MG TABLET (FP) PO SCH (23:08)
[2018-10-04] MEDS: MELATONIN 5 MG TABLETS PO PRN (23:09)
[2018-10-04] MEDS: GABAPENTIN 300 MG CAPSULE (FP) PO SCH (23:09)
[2018-10-05] MEDS: PRENATAL VITAMINS W/ FOLIC ACID TABLET (FP) PO SCH (10:28)
[2018-10-05] MEDS: NICOTINE 14 MG/24 HOURS TOPICAL PATCH TD SCH (10:28)
[2018-10-05] MEDS: IBUPROFEN 400 MG TABLET (FP) PO PRN (10:28)
[2018-10-05] MEDS: GABAPENTIN 300 MG CAPSULE (FP) PO SCH ×2 (10:28→21:35)
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
[2018-10-05] MEDS: MELATONIN 5 MG TABLETS PO PRN (21:35)
[2018-10-05] MEDS: THIAMINE HCL 100 MG TABLET (FP) PO SCH (21:35)
[2018-10-05] MEDS: hydrOXYzine PAMOATE 25 MG CAPSULE (FP) PO PRN (21:35)
[2018-10-06] MEDS: IBUPROFEN 400 MG TABLET (FP) PO PRN ×3 (05:59→21:37)
[2018-10-06] MEDS: PRENATAL VITAMINS W/ FOLIC ACID TABLET (FP) PO SCH (09:51)
[2018-10-06] MEDS: ACETAMINOPHEN 325 MG TABLET (FP) PO PRN (09:51)
[2018-10-06] MEDS: GABAPENTIN 300 MG CAPSULE (FP) PO SCH ×2 (09:51→21:36)
[2018-10-06] MEDS: NICOTINE 14 MG/24 HOURS TOPICAL PATCH TD SCH (09:52)
--- NOTE | 2018-10-06 14:36 | PN ---
S Progress Note Note: PT REQUESTING FOR LIDOCAINE PATCH FOR BACK PAIN. PT C/O BACK PAIN AND REQUESTED EARLIER TO BE EXCUSED FROM GROUPS. PT WAS REMINDED THE NEED TO STRETCH HIS BACK AND NOT TO BE IN BED ALL DAY. DISCUSSED WITH PT HE MAY GO TO GROUP MUCH HE CAN TOLERATE TODAY. PT IS ALERT O X 3. OOB AMBULATING ON HALLWAY WITH STEADY GAIT. Vital Signs 10/06/18 07:10 Temperature 97.3 F L Pulse Rate 73 Respiratory 18 Rate Blood Pressure 104/78 PLAN:LIDOCAINE PATCH DIRECTED.
[2018-10-06] MEDS: LIDOCAINE 5% TOPICAL PATCH TP SCH (14:48)
[2018-10-06] MEDS: SUVOREXANT 10 MG TABLET PO PRN (21:36)
[2018-10-06] MEDS: OLANZapine 10 MG TABLET PO SCH (21:37)
[2018-10-06] MEDS: hydrOXYzine PAMOATE 25 MG CAPSULE (FP) PO PRN (21:37)
[2018-10-06] MEDS: THIAMINE HCL 100 MG TABLET (FP) PO SCH (21:37)
[2018-10-06] MEDS: MELATONIN 5 MG TABLETS PO PRN (21:37)
[2018-10-06] MEDS: LIDOCAINE PATCH REMOVAL MC SCH (21:57)
[2018-10-07] MEDS: GABAPENTIN 300 MG CAPSULE (FP) PO SCH ×2 (10:15→21:35)
[2018-10-07] MEDS: NICOTINE 14 MG/24 HOURS TOPICAL PATCH TD SCH (10:15)
[2018-10-07] MEDS: PRENATAL VITAMINS W/ FOLIC ACID TABLET (FP) PO SCH (10:15)
[2018-10-07] MEDS: LIDOCAINE 5% TOPICAL PATCH TP SCH (10:15)
[2018-10-07] MEDS: IBUPROFEN 400 MG TABLET (FP) PO PRN (10:15)
[2018-10-07] MEDS: SUVOREXANT 10 MG TABLET PO PRN (21:35)
[2018-10-07] MEDS: OLANZapine 10 MG TABLET PO SCH (21:35)
[2018-10-07] MEDS: hydrOXYzine PAMOATE 25 MG CAPSULE (FP) PO PRN (21:35)
[2018-10-07] MEDS: MELATONIN 5 MG TABLETS PO PRN (21:35)
[2018-10-07] MEDS: THIAMINE HCL 100 MG TABLET (FP) PO SCH (21:36)
[2018-10-07] MEDS: LIDOCAINE PATCH REMOVAL MC SCH (21:36)
[2018-10-08] MEDS: GABAPENTIN 300 MG CAPSULE (FP) PO SCH ×2 (10:15→21:36)
[2018-10-08] MEDS: PRENATAL VITAMINS W/ FOLIC ACID TABLET (FP) PO SCH (10:15)
[2018-10-08] MEDS: LIDOCAINE 5% TOPICAL PATCH TP SCH (10:15)
[2018-10-08] MEDS: NICOTINE 14 MG/24 HOURS TOPICAL PATCH TD SCH (10:16)
[2018-10-08] MEDS: IBUPROFEN 400 MG TABLET (FP) PO PRN (10:16)
[2018-10-08] MEDS: SUVOREXANT 10 MG TABLET PO PRN (21:36)
[2018-10-08] MEDS: THIAMINE HCL 100 MG TABLET (FP) PO SCH (21:36)
[2018-10-08] MEDS: OLANZapine 10 MG TABLET PO SCH (21:36)
[2018-10-08] MEDS: LIDOCAINE PATCH REMOVAL MC SCH (21:37)
[2018-10-08] MEDS: MELATONIN 5 MG TABLETS PO PRN (21:37)
[2018-10-09] MEDS: GABAPENTIN 300 MG CAPSULE (FP) PO SCH ×2 (10:23→21:56)
[2018-10-09] MEDS: NICOTINE 14 MG/24 HOURS TOPICAL PATCH TD SCH (10:23)
[2018-10-09] MEDS: PRENATAL VITAMINS W/ FOLIC ACID TABLET (FP) PO SCH (10:23)
[2018-10-09] MEDS: IBUPROFEN 400 MG TABLET (FP) PO PRN ×2 (10:24→21:57)
[2018-10-09] MEDS: LIDOCAINE 5% TOPICAL PATCH TP SCH (10:25)
[2018-10-09] MEDS: THIAMINE HCL 100 MG TABLET (FP) PO SCH (21:56)
[2018-10-09] MEDS: OLANZapine 10 MG TABLET PO SCH (21:56)
[2018-10-09] MEDS: SUVOREXANT 10 MG TABLET PO PRN (21:57)
[2018-10-09] MEDS: LIDOCAINE PATCH REMOVAL MC SCH (21:58)
[2018-10-09] MEDS ORDERED: SUVOREXANT 10 MG TABLET PO PRN (22:00)
[2018-10-10] MEDS: LIDOCAINE 5% TOPICAL PATCH TP SCH (10:16)
[2018-10-10] MEDS: PRENATAL VITAMINS W/ FOLIC ACID TABLET (FP) PO SCH (10:16)
[2018-10-10] MEDS: NICOTINE 14 MG/24 HOURS TOPICAL PATCH TD SCH (10:16)
[2018-10-10] MEDS: GABAPENTIN 300 MG CAPSULE (FP) PO SCH ×2 (10:16→22:03)
[2018-10-10] MEDS ORDERED: COLLOIDAL OATMEAL 1 BAR EACH TP PRN (11:24)
[2018-10-10] MEDS: THIAMINE HCL 100 MG TABLET (FP) PO SCH (22:03)
[2018-10-10] MEDS: OLANZapine 10 MG TABLET PO SCH (22:03)
[2018-10-10] MEDS: LIDOCAINE PATCH REMOVAL MC SCH (22:03)
[2018-10-10] MEDS: MELATONIN 5 MG TABLETS PO PRN (22:04)
[2018-10-10] MEDS: IBUPROFEN 400 MG TABLET (FP) PO PRN (22:05)
[2018-10-11] MEDS: NICOTINE 14 MG/24 HOURS TOPICAL PATCH TD SCH (10:10)
[2018-10-11] MEDS: PRENATAL VITAMINS W/ FOLIC ACID TABLET (FP) PO SCH (10:10)
[2018-10-11] MEDS: GABAPENTIN 300 MG CAPSULE (FP) PO SCH ×2 (10:10→21:41)
[2018-10-11] MEDS: LIDOCAINE 5% TOPICAL PATCH TP SCH (10:10)
[2018-10-11] MEDS: IBUPROFEN 400 MG TABLET (FP) PO PRN (10:11)
[2018-10-11] MEDS: OLANZapine 10 MG TABLET PO SCH (21:41)
[2018-10-11] MEDS: LIDOCAINE PATCH REMOVAL MC SCH (21:41)
[2018-10-11] MEDS: MELATONIN 5 MG TABLETS PO PRN (21:41)
[2018-10-11] MEDS: THIAMINE HCL 100 MG TABLET (FP) PO SCH (21:43)
[2018-10-12] MEDS: NICOTINE 14 MG/24 HOURS TOPICAL PATCH TD SCH (10:44)
[2018-10-12] MEDS: GABAPENTIN 300 MG CAPSULE (FP) PO SCH ×2 (10:45→21:27)
[2018-10-12] MEDS: PRENATAL VITAMINS W/ FOLIC ACID TABLET (FP) PO SCH (10:45)
[2018-10-12] MEDS: hydrOXYzine PAMOATE 25 MG CAPSULE (FP) PO PRN (10:45)
[2018-10-12] MEDS: IBUPROFEN 400 MG TABLET (FP) PO PRN ×2 (10:45→21:27)
[2018-10-12] MEDS: LIDOCAINE 5% TOPICAL PATCH TP SCH (10:46)
--- NOTE | 2018-10-12 15:20 | PN ---
[facility] Progress Note Note: Psychiatric nurse practitioner note: Belsoa 10mg renewed. Verbal consent given.
[2018-10-12] MEDS: THIAMINE HCL 100 MG TABLET (FP) PO SCH (21:27)
[2018-10-12] MEDS: SUVOREXANT 10 MG TABLET PO PRN (21:27)
[2018-10-12] MEDS: OLANZapine 10 MG TABLET PO SCH (21:27)
[2018-10-12] MEDS: LIDOCAINE PATCH REMOVAL MC SCH (21:27)
[2018-10-13] MEDS: IBUPROFEN 400 MG TABLET (FP) PO PRN (06:37)
[2018-10-13] MEDS: LIDOCAINE 5% TOPICAL PATCH TP SCH (10:30)
[2018-10-13] MEDS: PRENATAL VITAMINS W/ FOLIC ACID TABLET (FP) PO SCH (10:31)
[2018-10-13] MEDS: GABAPENTIN 300 MG CAPSULE (FP) PO SCH ×2 (10:31→21:43)
[2018-10-13] MEDS: NICOTINE 14 MG/24 HOURS TOPICAL PATCH TD SCH (11:59)
[2018-10-13] MEDS: THIAMINE HCL 100 MG TABLET (FP) PO SCH (21:42)
[2018-10-13] MEDS: OLANZapine 10 MG TABLET PO SCH (21:43)
[2018-10-13] MEDS: SUVOREXANT 10 MG TABLET PO PRN (21:43)
[2018-10-13] MEDS: LIDOCAINE PATCH REMOVAL MC SCH (21:44)
[2018-10-13] MEDS: MELATONIN 5 MG TABLETS PO PRN (21:44)
[2018-10-14] MEDS: LIDOCAINE 5% TOPICAL PATCH TP SCH (09:40)
[2018-10-14] MEDS: GABAPENTIN 300 MG CAPSULE (FP) PO SCH ×2 (09:41→21:56)
[2018-10-14] MEDS: NICOTINE 14 MG/24 HOURS TOPICAL PATCH TD SCH (09:41)
[2018-10-14] MEDS: PRENATAL VITAMINS W/ FOLIC ACID TABLET (FP) PO SCH (09:41)
[2018-10-14] MEDS: ACETAMINOPHEN 325 MG TABLET (FP) PO PRN (09:42)
[2018-10-14] MEDS: OLANZapine 10 MG TABLET PO SCH (21:56)
[2018-10-14] MEDS: THIAMINE HCL 100 MG TABLET (FP) PO SCH (21:57)
[2018-10-14] MEDS: LIDOCAINE PATCH REMOVAL MC SCH (21:57)
[2018-10-15] MEDS: GABAPENTIN 300 MG CAPSULE (FP) PO SCH ×2 (10:53→21:58)
[2018-10-15] MEDS: LIDOCAINE 5% TOPICAL PATCH TP SCH (10:53)
[2018-10-15] MEDS: NICOTINE 14 MG/24 HOURS TOPICAL PATCH TD SCH (10:54)
[2018-10-15] MEDS: PRENATAL VITAMINS W/ FOLIC ACID TABLET (FP) PO SCH (10:54)
[2018-10-15] MEDS: IBUPROFEN 400 MG TABLET (FP) PO PRN (10:55)
[2018-10-15] MEDS: LIDOCAINE PATCH REMOVAL MC SCH (21:58)
[2018-10-15] MEDS: THIAMINE HCL 100 MG TABLET (FP) PO SCH (21:58)
[2018-10-15] MEDS: OLANZapine 10 MG TABLET PO SCH (21:58)
[2018-10-15] MEDS: MELATONIN 5 MG TABLETS PO PRN (21:59)
[2018-10-16] MEDS: LIDOCAINE 5% TOPICAL PATCH TP SCH (10:37)
[2018-10-16] MEDS: NICOTINE 14 MG/24 HOURS TOPICAL PATCH TD SCH (10:38)
[2018-10-16] MEDS: PRENATAL VITAMINS W/ FOLIC ACID TABLET (FP) PO SCH (10:38)
[2018-10-16] MEDS: GABAPENTIN 300 MG CAPSULE (FP) PO SCH ×2 (10:38→21:39)
[2018-10-16] MEDS: OLANZapine 10 MG TABLET PO SCH (21:39)
[2018-10-16] MEDS: MELATONIN 5 MG TABLETS PO PRN (21:40)
[2018-10-16] MEDS: THIAMINE HCL 100 MG TABLET (FP) PO SCH (21:40)
[2018-10-16] MEDS: LIDOCAINE PATCH REMOVAL MC SCH (21:40)
[2018-10-16] MEDS: METHYL SALICYLATE/MENTHOL OINT 30 GM TUBE TP SCH (21:42)
[2018-10-17] MEDS: NICOTINE 14 MG/24 HOURS TOPICAL PATCH TD SCH (10:38)
[2018-10-17] MEDS: LIDOCAINE 5% TOPICAL PATCH TP SCH (10:39)
[2018-10-17] MEDS: PRENATAL VITAMINS W/ FOLIC ACID TABLET (FP) PO SCH (10:39)
[2018-10-17] MEDS: METHYL SALICYLATE/MENTHOL OINT 30 GM TUBE TP SCH ×2 (10:39→21:33)
[2018-10-17] MEDS: GABAPENTIN 300 MG CAPSULE (FP) PO SCH ×2 (10:39→21:34)
[2018-10-17] MEDS: THIAMINE HCL 100 MG TABLET (FP) PO SCH (21:34)
[2018-10-17] MEDS: LIDOCAINE PATCH REMOVAL MC SCH (21:34)
[2018-10-17] MEDS: OLANZapine 10 MG TABLET PO SCH (21:34)
[2018-10-18 07:09] VITALS: PULSE 86
[2018-10-18] MEDS: NICOTINE 14 MG/24 HOURS TOPICAL PATCH TD SCH (09:58)
[2018-10-18] MEDS: METHYL SALICYLATE/MENTHOL OINT 30 GM TUBE TP SCH ×2 (09:58→21:35)
[2018-10-18] MEDS: LIDOCAINE 5% TOPICAL PATCH TP SCH (09:58)
[2018-10-18] MEDS: PRENATAL VITAMINS W/ FOLIC ACID TABLET (FP) PO SCH (09:58)
[2018-10-18] MEDS: GABAPENTIN 300 MG CAPSULE (FP) PO SCH ×2 (09:58→21:35)
[2018-10-18] MEDS: THIAMINE HCL 100 MG TABLET (FP) PO SCH (21:35)
[2018-10-18] MEDS: LIDOCAINE PATCH REMOVAL MC SCH (21:35)
[2018-10-18] MEDS: OLANZapine 10 MG TABLET PO SCH (21:35)
[2018-10-19] MEDS: ACETAMINOPHEN 325 MG TABLET (FP) PO PRN (06:23)
[2018-10-19 07:19] VITALS: BP 140/80; TEMP 97.8
[2018-10-19] MEDS: GABAPENTIN 300 MG CAPSULE (FP) PO SCH (09:44)
[2018-10-19] MEDS: PRENATAL VITAMINS W/ FOLIC ACID TABLET (FP) PO SCH (09:44)
[2018-10-19] MEDS: LIDOCAINE 5% TOPICAL PATCH TP SCH (09:44)
[2018-10-19] MEDS: METHYL SALICYLATE/MENTHOL OINT 30 GM TUBE TP SCH (09:45)
[2018-10-19] MEDS: NICOTINE 14 MG/24 HOURS TOPICAL PATCH TD SCH (09:45)
--- NOTE | 2018-10-19 11:41 | PN ---
S Progress Note Note: PT COMPLETED REHAB AND DISCHARGED TODAY. PT HAS BEEN REFERRED TO [facility] AT [address] [place] [address] FOR CD AFTERCARE. PT WILL FOLLOW UP WITH HIS PCP AT [facility] ON [facility] COURTESY RX FOR GABAPENTIN ELECTRONICALLY SENT TO [facility] FOR PT TO NEWS VIDEOTAPE EDITOR AFTER DISCHARGE. ALERT O X 3. DENIES S/H/I. Home Medications Medication Instructions Recorded Olanzapine [ZyPREXA -] 10 mg PO HS #30 tablet 08/21/18 Gabapentin [Neurontin] 300 mg PO BID #28 capsule 10/18/18 Vital Signs - 24 hr 10/19/18 10/19/18 10/19/18 00:30 03:30 07:18 Temperature 97.8 F Pulse Rate 86 Respiratory 16 18 18 Rate Blood Pressure 140/80 NAD MEDICALLY STABLE PLAN:FOLLOW UP WITH CD AFTERCARE RECOMMENDATION. FOLLOW UP WITH PCP 1-2 WEEKS AFTER DISCHARGE.
== END 2018-10-19 10:15 | disposition home or self-care (01) | DRG 772 ==
LOC: YASAS 16:17 → Y5N 21:40
PROVIDERS: ADMIT Neuromusculoskeletal Medicine & OMM; ATTEND Neuromusculoskeletal Medicine & OMM
PROC: HZ42ZZZ Group Counseling for Substance Abuse Treatment, Cognitive-Behavioral (ICD-10-PCS; principal; 2018-10-04)
DX: F11.20 Opioid dependence, uncomplicated (principal); F10.20 Alcohol dependence, uncomplicated; F12.20 Cannabis dependence, uncomplicated; F17.210 Nicotine dependence, cigarettes, uncomplicated; F19.282 Other psychoactive substance dependence with psychoactive substance-induced sleep disorder; F25.9 Schizoaffective disorder, unspecified; F32.9 Major depressive disorder, single episode, unspecified; M54.9 Dorsalgia, unspecified; M10.9 Gout, unspecified; H91.92 Unspecified hearing loss, left ear; R76.11 Nonspecific reaction to tuberculin skin test without active tuberculosis

== ENCOUNTER 2018-12-15 20:03 | Inpatient (IN) | payer OTHER ==
[2018-12-15 21:33] VITALS: BMI 22.6
--- NOTE | 2018-12-15 22:20 | HP ---
CIWA Score Nausea/Vomitin Muscle Tremors: 3 Anxiety: 2 Agitation: 2 Paroxysmal Sweats: No Perspiration Orientation: 0-Oriented Tacttile Disturbances: 0-None Auditory Disturbances: 0-None Visual Disturbances: 1-Very Mild Sensitivity Headache: 2-Mild CIWA-Ar Total Score: 12 - Admission Criteria OASAS Guidelines: Admission for Medically Managed Detox: Requires at least one of the followin. CIWA greater than 12 2. Seizures within the past 24 hours 3. Delirium tremens within the past 24 hours 4. Hallucinations within the past 24 hours 5. Acute intervention needed for co occurring medical disorder 6. Acute intervention needed for co occurring psychiatric disorder 7. Severe withdrawal that cannot be handled at a lower level of care (continued vomiting, continued diarrhea, abnormal vital signs) requiring intravenous medication and/or fluids 8. Patient presents the following: CIWA greater than 12 Admission Criteria Met: Admission criteria met Admission ROS S - [facility] Chief Complaint: i came to get help Allergies/Adverse Reactions: Allergies Allergy/AdvReac Type Severity Reaction Status Date / Time No Known Allergies Allergy Verified 10/04/18 19:45 History of Present Illness: began drinking age 7yo, parents both drank and introduced him to etoh and has drank daily since 7. stopped drinking x 8-9 mos. heroin use began 3 y ago. uses ocassionally inhaled. previously on mmtp. Exam Limitations: Intoxication - Ebola screening Have you traveled outside of the country in the last 21 days: No Have you had contact with anyone from an Ebola affected area: No - Review of Systems Constitutional: Loss of Appetite, Changes in sleep EENT: reports: No Symptoms Reported Respiratory: reports: No Symptoms reported Cardiac: reports: No Symptoms Reported GI: reports: Poor Appetite, Abdominal cramping : reports: No Symptoms Reported Musculoskeletal: reports: No Symptoms Reported Integumentary: reports: No Symptoms Reported Neuro: reports: No Symptoms reported Endocrine: reports: No Symptoms Reported Hematology: reports: No Symptoms Reported Psychiatric: reports: Mood/Affect Appropiate Patient History - Patient Medical History Hx Anemia: No Hx Asthma: No Hx Chronic Obstructive Pulmonary Disease (COPD): No Hx Cancer: No Hx Cardiac Disorders: No Hx Congestive Heart Failure: No Hx Hypertension: No Hx Hypercholesterolemia: No Hx Pacemaker: No HX Cerebrovascular Accident: No Hx Seizures: No Hx Dementia: No Hx Diabetes: No Hx Gastrointestinal Disorders: No Hx Liver Disease: No Hx Genitourinary Disorders: No Hx Sexually Transmitted Disorders: No Hx Renal Disease (ESRD): No Hx Thyroid Disease: No Hx Human Immunodeficiency Virus (HIV): No (Negative June 2018) Hx Hepatitis C: No Hx Depression: Yes (Not on medication) Hx Suicide Attempt: No Hx Bipolar Disorder: No Hx Schizophrenia: No - Patient Surgical History Past Surgical History: Yes Hx Neurologic Surgery: No Hx Cataract Extraction: No Hx Cardiac Surgery: No Hx Lung Surgery: No Hx Breast Surgery: No Hx Breast Biopsy: No Hx Abdominal Surgery: No Hx Appendectomy: No Hx Cholecystectomy: No Hx Genitourinary Surgery: No Hx Section: No Hx Orthopedic Surgery: Yes (LEFT KNEE SURGERY 1984) Anesthesia Reaction: No - PPD History Results: 07/09/18NEG CXR - Smoking Cessation Smoking history: Current some day smoker Have you smoked in the past 12 months: Yes Aproximately how many cigarettes per day: 5 Cigars Per Day: 0 Hx Chewing Tobacco Use: No Initiated information on smoking cessation: Yes 'Breaking Loose' booklet given: 12/15/18 - Substances abused Alcohol Substance route: Oral Frequency: Daily Amount used: 1 PINT VODKA/12 BEERS Age of first use: 7 Date of last use: 12/15/18 Marijuana/Hashish Substance route: Smoking Frequency: Daily Amount used: 5 BAGS Age of first use: 20 Date of last use: 12/15/18 Heroin Substance route: Inhalation Frequency: Daily Amount used: 2/D Age of first use: 35 Date of last use: 12/14/18 Family Disease History - Family Disease History Family Disease History: Diabetes: Mother (ALCOHOL AND DRUG ABUSE), Sister, Other : Grandparent (ALCOHOL AND DRUG abuse), Father (ALCOHOL AND DRUG ABUSE), Mother , Brother (alcohol,dsa) Admission Physical Exam [facility] - Vital Signs Vital Signs: Vital Signs - 24 hr 12/15/18 21:29 Temperature 98.2 F Pulse Rate 99 H Respiratory 18 Rate Blood Pressure 110/70 - Physical General Appearance: Yes: Disheveled, Alcohol on Breath, Sweating HEENTM: Yes: EOMI Respiratory: Yes: Within Normal Limits Neck: Yes: Within Normal Limits Breast: Yes: Breast Exam Deferred Cardiology: Yes: Within Normal Limits Abdominal: Yes: Within Normal Limits Genitourinary: Yes: Within Normal Limits Back: Yes: Within Normal Limits Musculoskeletal: Yes: Within Normal Limits Extremities: Yes: Within Normal Limits Neurological: Yes: rn obgyn II-XII NML intact, Alert, Motor Strength 5/5 Integumentary: Yes: Other (diffuse [place] petechiae vs abrasions) Cleared for Admission [facility] - Detox or Rehab [facility] Level of Care: Medically Supervised Detox Regimen/Protocol: Librium Breathalyzer - Breathalyzer Breathalyzer: 0.191 Urine Drug Screen - Test Device Lot number: [id number] Expiration date: 08/10/20 - Control Is test valid?: Yes - Results Drug screen NEGATIVE: No Urine drug screen results: THC-Marijuana Inpatient Rehab Admission - Rehab Decision to Admit Inpatient rehab admission?: No
[2018-12-15] MEDS ORDERED: MENTHOL/PHENOL 1 EACH UD MM PRN (22:25)
[2018-12-15] MEDS ORDERED: IBUPROFEN 400 MG TABLET (FP) PO PRN (22:25)
[2018-12-15] MEDS ORDERED: ACETAMINOPHEN 325 MG TABLET (FP) PO PRN (22:25)
[2018-12-15] MEDS ORDERED: MAGNESIUM CITRATE 300 ML BOTTLE PO PRN (22:25)
[2018-12-15] MEDS ORDERED: BISMUTH SUBSALICYLATE 524 MG/30 ML UD PO PRN (22:25)
[2018-12-15] MEDS ORDERED: MAGNESIUM HYDROX 2400MG/30ML ORAL SUSPENSION 30 ML CUP PO PRN (22:25)
[2018-12-15] MEDS ORDERED: MAG HYDROX/AL HYDROX/SIMETH 30 ML UNIT-DOSE CUP PO PRN (22:25)
[2018-12-15] MEDS ORDERED: METHOCARBAMOL 500 MG TABLET PO PRN (22:25)
[2018-12-15] MEDS ORDERED: chlordiazePOXIDE HCL 25 MG CAPSULE PO PRN (22:25)
[2018-12-15] MEDS ORDERED: hydrOXYzine PAMOATE 25 MG CAPSULE (FP) PO PRN (22:25)
[2018-12-15] MEDS: MELATONIN 5 MG TABLETS PO PRN (23:01)
[2018-12-15] MEDS: chlordiazePOXIDE HCL 25 MG CAPSULE PO SCH (23:01)
[2018-12-16] MEDS: chlordiazePOXIDE HCL 25 MG CAPSULE PO SCH ×3 (06:34→17:24)
[2018-12-16] MEDS: PRENATAL VITAMINS W/ FOLIC ACID TABLET (FP) PO SCH (10:54)
--- NOTE | 2018-12-16 11:02 | PN ---
S CIWA - CIWA Score Nausea/Vomitin-No Nausea/No Vomiting Muscle Tremors: 2 Anxiety: 2 Agitation: 2 Paroxysmal Sweats: 3 Orientation: 0-Oriented Tacttile Disturbances: 0-None Auditory Disturbances: 0-None Visual Disturbances: 0-None Headache: 1-Very Mild CIWA-Ar Total Score: 10 S Progress Note (SOAP) Subjective: c/o sweats, anxiety, interrupted sleep, and headache Objective: 12/16/18 11:01 Vital Signs 12/16/18 12/16/18 12/16/18 03:30 04:00 04:30 Temperature 98.1 F Pulse Rate 80 80 79 Respiratory 18 18 18 Rate Blood Pressure 129/78 12/16/18 12/16/18 12/16/18 05:00 05:30 06:00 Temperature Pulse Rate 77 72 72 Respiratory 18 18 Rate Blood Pressure 12/16/18 12/16/18 12/16/18 06:30 07:00 07:30 Temperature Pulse Rate 77 76 74 Respiratory Rate Blood Pressure 12/16/18 12/16/18 12/16/18 08:00 08:30 09:00 Temperature Pulse Rate 72 73 68 Respiratory 18 18 Rate Blood Pressure 12/16/18 12/16/18 09:30 10:00 Temperature 97 F L Pulse Rate 70 74 Respiratory 18 18 Rate Blood Pressure 132/79 Labs pending. Assessment: 12/16/18 11:01 AOX3, in no acute respiratory distress. Full ROM, ambulating in the unit. withdrawal symptoms Plan: continue detox.
[2018-12-16 11:18] LABS: HEMATOCRIT 34.2 % (35.4-49); HEMOGLOBIN 11.4 GM/dL (11.7-16.9); MCHC 33.2 g/dl (32.0-35.9); MEAN CELL VOLUME 87.6 fl (80-96); MEAN PLT VOLUME 9.5 fl (7.5-11.1); RBC 3.91 M/mm3 (4.00-5.60); RDW 16.3 % (11.9-15.9)
[2018-12-16 11:26] LABS: ALBUMIN 3.4 g/dl (3.4-5.0); BILIRUBIN,TOTAL 0.9 mg/dL (0.2-1); CALCIUM 8.6 mg/dL (8.5-10.1); CREATININE 0.7 mg/dL (0.55-1.3); POTASSIUM 3.7 mmol/L (3.5-5.1); TOT PROT 6.7 g/dl (6.4-8.2)
[2018-12-16 12:20] LABS: PLATELET COUNT 187 K/MM3 (134-434)
[2018-12-16] MEDS: ACETAMINOPHEN 325 MG TABLET (FP) PO PRN (13:21)
[2018-12-16] MEDS: THIAMINE HCL 100 MG TABLET (FP) PO SCH (22:33)
[2018-12-16] MEDS: MELATONIN 5 MG TABLETS PO PRN (22:33)
[2018-12-17] MEDS: chlordiazePOXIDE HCL 25 MG CAPSULE PO SCH ×3 (06:05→10:48)
[2018-12-17] MEDS: PRENATAL VITAMINS W/ FOLIC ACID TABLET (FP) PO SCH (10:21)
[2018-12-17] MEDS: ACETAMINOPHEN 325 MG TABLET (FP) PO PRN (10:22)
[2018-12-17] MEDS: METHYL SALICYLATE/MENTHOL OINT 30 GM TUBE TP SCH ×2 (12:13→23:45)
[2018-12-17] MEDS ORDERED: LORazepam 1 MG TABLET PO PRN (15:31)
--- NOTE | 2018-12-17 15:34 | PN ---
[facility] CIWA - CIWA Score Nausea/Vomitin-No Nausea/No Vomiting Muscle Tremors: 2 Anxiety: 2 Agitation: 2 Paroxysmal Sweats: No Perspiration Orientation: 2-Disoriented Date<2 days Tacttile Disturbances: 2-Mild Itch/Numbness/Burn Auditory Disturbances: 0-None Visual Disturbances: 0-None Headache: 0-None Present CIWA-Ar Total Score: 10 [facility] Progress Note (SOAP) Subjective: Body Aches, Anxious, Tremors. Objective: PATIENT A & O X 3, OBSERVED AMBULATING ON UNIT UNASSISTED. IN NO ACUTE DISTRESS. 12/17/18 15:30 Vital Signs Temperature 97.3 F L 12/17/18 13:18 Pulse Rate 63 12/17/18 13:18 Respiratory Rate 18 12/17/18 13:18 Blood Pressure 143/94 12/17/18 13:18 O2 Sat by Pulse Oximetry (%) Laboratory Tests 12/16/18 12/16/18 12/16/18 08:00 08:00 08:00 WBC 2.0 L RBC 3.91 L Hgb 11.4 L Hct 34.2 L MCV 87.6 MCH 29.0 MCHC 33.2 RDW 16.3 H Plt Count 187 MPV 9.5 Sodium 139 Potassium 3.7 Chloride 104 Carbon Dioxide 24 Anion Gap 11 BUN 6.0 L Creatinine 0.7 Est GFR (CKD-EPI)AfAm 120.56 Est GFR (CKD-EPI)NonAf 104.02 Random Glucose 130 H Calcium 8.6 Total Bilirubin 0.9 AST 180 H ALT 348 H Alkaline Phosphatase 168 H Total Protein 6.7 Albumin 3.4 RPR Titer Nonreactive LABS NOTED. PATIENT HAS BEEN ANEMIC, HAD LOW WBC LEVELS, ELEVATED LIVER ENZYME LEVELS, AND ELEVATED RANDOM GLUCOSE LEVELS ON PREVIOUS ADMISSIONS. 12/17/18 15:35 Assessment: 12/17/18 15:34 WITHDRAWAL SYMPTOMS. ELEVATED LIVER ENZYMES (AST, ALT, ALKALINE PHOSPHATASE). LEUKOPENIA. ANEMIA. 12/17/18 15:35 Plan: CONTINUE DETOX. INCREASE DAILY PO WATER INTAKE. TOPICAL ASHISH-OROZCO FOR LOWER BACK AND BILATERAL KNEE PAIN. DUE TO SIGNIFICANTLY ELEVATED LIVER ENZYME LEVELS, CURRENT DETOX MEDICATION REGIMEN (LIBRIUM) CHANGED TO ATIVAN DETOX MEDICATION PROTOCOL. HEPATIC FUNCTION PANEL ORDERED FOR TOMORROW AM TO SEE IF ANY CHANGE IN LIVER ENZYME LEVELS. FASTING BGM ORDERED FOR TOMORROW AM FOR ELEVATED ADMISSION RANDOM GLUCOSE LEVEL.
[2018-12-17] MEDS: LORazepam 2 MG TABLET PO SCH ×2 (17:33→22:19)
[2018-12-17] MEDS: THIAMINE HCL 100 MG TABLET (FP) PO SCH (22:19)
[2018-12-17] MEDS: MELATONIN 5 MG TABLETS PO PRN (22:19)
[2018-12-18] MEDS ORDERED: chlordiazePOXIDE HCL 10 MG CAPSULE PO PRN
[2018-12-18] MEDS ORDERED: chlordiazePOXIDE HCL 10 MG CAPSULE PO SCH (05:00)
[2018-12-18] MEDS: LORazepam 2 MG TABLET PO SCH ×2 (06:08→10:47)
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
[2018-12-18 10:00] LABS: ALBUMIN 4.2 g/dl (3.4-5.0); BILIRUBIN,DIRECT 0.3 mg/dL (0.0-0.2); BILIRUBIN,TOTAL 0.6 mg/dL (0.2-1); TOT PROT 7.6 g/dl (6.4-8.2)
[2018-12-18] MEDS: METHYL SALICYLATE/MENTHOL OINT 30 GM TUBE TP SCH (10:47)
[2018-12-18] MEDS: PRENATAL VITAMINS W/ FOLIC ACID TABLET (FP) PO SCH (10:47)
[2018-12-18] MEDS ORDERED: IBUPROFEN 600 MG TABLET (FP) PO PRN (12:00)
--- NOTE | 2018-12-18 14:19 | PN ---
S CIWA - CIWA Score Nausea/Vomitin-No Nausea/No Vomiting Muscle Tremors: None Anxiety: 3 Agitation: 2 Paroxysmal Sweats: No Perspiration Orientation: 0-Oriented Tacttile Disturbances: 1-Very Mild Itch/Numbness Auditory Disturbances: 1-Very Mild Visual Disturbances: 0-None Headache: 0-None Present CIWA-Ar Total Score: 7 BHS Progress Note (SOAP) Subjective: Body Aches, Anxious. Objective: PATIENT A & O X 3, OBSERVED AMBULATING ON UNIT UNASSISTED. IN NO ACUTE DISTRESS. 12/18/18 14:20 Vital Signs Temperature 97.0 F L 12/18/18 09:29 Pulse Rate 60 12/18/18 09:29 Respiratory Rate 18 12/18/18 09:29 Blood Pressure 130/79 12/18/18 09:29 O2 Sat by Pulse Oximetry (%) Laboratory Tests 12/16/18 12/16/18 12/16/18 08:00 08:00 08:00 WBC 2.0 L RBC 3.91 L Hgb 11.4 L Hct 34.2 L MCV 87.6 MCH 29.0 MCHC 33.2 RDW 16.3 H Plt Count 187 MPV 9.5 Sodium 139 Potassium 3.7 Chloride 104 Carbon Dioxide 24 Anion Gap 11 BUN 6.0 L Creatinine 0.7 Est GFR (CKD-EPI)AfAm 120.56 Est GFR (CKD-EPI)NonAf 104.02 Random Glucose 130 H Fasting Glucose Calcium 8.6 Total Bilirubin 0.9 Direct Bilirubin AST 180 H ALT 348 H Alkaline Phosphatase 168 H Total Protein 6.7 Albumin 3.4 RPR Titer Nonreactive 12/18/18 12/18/18 08:00 08:00 WBC RBC Hgb Hct MCV MCH MCHC RDW Plt Count MPV Sodium Potassium Chloride Carbon Dioxide Anion Gap BUN Creatinine Est GFR (CKD-EPI)AfAm Est GFR (CKD-EPI)NonAf Random Glucose Fasting Glucose 116 H Calcium Total Bilirubin 0.6 Direct Bilirubin 0.3 H AST 83 H ALT 236 H Alkaline Phosphatase 151 H Total Protein 7.6 Albumin 4.2 RPR Titer LABS NOTED. RESULTS OF FASTING BLOOD GLUCOSE LEVEL AND OF HEPATIC FUNCTION PANEL NOTED. REDUCTIONS NOTED IN AST, ALT, AND IN AP LEVELS. HOWEVER, ALL THREE ENZYME LEVELS STILL ELEVATED. 12/18/18 14:23 Assessment: 12/18/18 14:21 WITHDRAWAL SYMPTOMS. ELEVATED LIVER ENZYMES (PATIENT ALREADY CHANGED FROM LIBRIUM MEDICATION DETOX REGIMEN TO ATIVAN MEDICATION DETOX REGIMEN YESTERDAY). 12/18/18 14:24 Plan: CONTINUE DETOX. INCREASE DAILY PO WATER INTAKE.
[2018-12-18] MEDS ORDERED: LORazepam 0.5 MG TABLET PO PRN (15:35)
[2018-12-18] MEDS ORDERED: KETOROLAC TROMETHAMINE 10 MG TABLET PO PRN (16:45)
[2018-12-18] MEDS ORDERED: hydrOXYzine HCL 25 MG TABLET (FP) PO PRN (16:45)
[2018-12-18] MEDS ORDERED: LORazepam 1 MG TABLET PO SCH (17:00)
[2018-12-18 17:53] VITALS: BP 152/93; PULSE 64; TEMP 97.2
[2018-12-18] MEDS ORDERED: LIDOCAINE 5% TOPICAL PATCH TP SCH ×2 (18:00)
[2018-12-18] MEDS ORDERED: LIDOCAINE 5% TOPICAL PATCH TP ONE (18:45)
[2018-12-18] MEDS ORDERED: OLANZapine 10 MG TABLET PO SCH (22:00)
[2018-12-18] MEDS ORDERED: SUVOREXANT 10 MG TABLET PO PRN (22:00)
[2018-12-19] MEDS ORDERED: LIDOCAINE PATCH REMOVAL MC SCH (05:00)
[2018-12-19] MEDS ORDERED: chlordiazePOXIDE HCL 10 MG CAPSULE PO SCH (05:00)
--- NOTE | 2018-12-19 09:57 | DS ---
[facility] Detox Discharge Summary Admission Date: 12/15/18 Discharge Date: 12/18/18 - History Present History: Alcohol Dependence, Cannabis Dependence - Physical Exam Results Vital Signs: Vital Signs Temperature 97.2 F L 12/18/18 17:52 Pulse Rate 64 12/18/18 17:52 Respiratory Rate 18 12/18/18 17:52 Blood Pressure 152/93 12/18/18 17:52 O2 Sat by Pulse Oximetry (%) Pertinent Admission Physical Exam Findings: WITHDRAWAL SX'S Laboratory Tests 12/16/18 12/16/18 12/16/18 08:00 08:00 08:00 WBC 2.0 L RBC 3.91 L Hgb 11.4 L Hct 34.2 L MCV 87.6 MCH 29.0 MCHC 33.2 RDW 16.3 H Plt Count 187 MPV 9.5 Sodium 139 Potassium 3.7 Chloride 104 Carbon Dioxide 24 Anion Gap 11 BUN 6.0 L Creatinine 0.7 Est GFR (CKD-EPI)AfAm 120.56 Est GFR (CKD-EPI)NonAf 104.02 Random Glucose 130 H Fasting Glucose Calcium 8.6 Total Bilirubin 0.9 Direct Bilirubin AST 180 H ALT 348 H Alkaline Phosphatase 168 H Total Protein 6.7 Albumin 3.4 RPR Titer Nonreactive 12/18/18 12/18/18 08:00 08:00 WBC RBC Hgb Hct MCV MCH MCHC RDW Plt Count MPV Sodium Potassium Chloride Carbon Dioxide Anion Gap BUN Creatinine Est GFR (CKD-EPI)AfAm Est GFR (CKD-EPI)NonAf Random Glucose Fasting Glucose 116 H Calcium Total Bilirubin 0.6 Direct Bilirubin 0.3 H AST 83 H ALT 236 H Alkaline Phosphatase 151 H Total Protein 7.6 Albumin 4.2 RPR Titer - Treatment Hospital Course: Discharged Condition Good Patient has Accepted a Rehab Referral to: REFUSED - Medication Discharge Medications: Ambulatory Orders Olanzapine [ZyPREXA -] 10 mg PO HS #30 tablet 08/21/18 Gabapentin [Neurontin] 300 mg PO BID #28 capsule 10/18/18 - Diagnosis (1) Alcohol dependence with uncomplicated withdrawal Status: Acute (2) Drug-induced mood disorder Status: Acute (3) Substance-induced anxiety disorder Status: Acute (4) Substance-induced sleep disorder Status: Acute - AMA Did Patient Leave Against Medical Advice: Yes
[2018-12-19] MEDS ORDERED: LORazepam 0.5 MG TABLET PO SCH (17:00)
[2018-12-19] MEDS ORDERED: LIDOCAINE 5% TOPICAL PATCH TP SCH (17:00)
[2018-12-20] MEDS ORDERED: chlordiazePOXIDE HCL 10 MG CAPSULE PO ONE (05:00)
[2018-12-21] MEDS ORDERED: LORazepam 0.5 MG TABLET PO ONE (05:00)
== END 2018-12-18 20:40 | disposition left against medical advice (07) | DRG 770 ==
LOC: YASAS 20:03 → Y6N 22:31
PROVIDERS: ADMIT Surgery; ATTEND Surgery
PROC: HZ2ZZZZ Detoxification Services for Substance Abuse Treatment (ICD-10-PCS; principal; 2018-12-15)
DX: F10.230 Alcohol dependence with withdrawal, uncomplicated (principal); F11.20 Opioid dependence, uncomplicated; F12.20 Cannabis dependence, uncomplicated; F17.210 Nicotine dependence, cigarettes, uncomplicated; F19.280 Other psychoactive substance dependence with psychoactive substance-induced anxiety disorder; F19.282 Other psychoactive substance dependence with psychoactive substance-induced sleep disorder; F25.9 Schizoaffective disorder, unspecified; F31.9 Bipolar disorder, unspecified; D64.9 Anemia, unspecified; D72.819 Decreased white blood cell count, unspecified; R94.5 Abnormal results of liver function studies; M10.9 Gout, unspecified; M54.89 Other dorsalgia; H91.92 Unspecified hearing loss, left ear; R76.11 Nonspecific reaction to tuberculin skin test without active tuberculosis
CPT/HCPCS: 36415; 80053; 80076; 82947; 85027; 86593

== ENCOUNTER 2018-12-28 01:20 | Inpatient (IN) | payer OTHER ==
--- NOTE | 2018-12-28 03:35 | HP ---
Screened but not Admitted - Documentation of Visit Screened but not Admitted: Yes Left Prior to Completion of Assessment: No Patient Does Not Meet Criteria for Admission: Yes Level of Care Recommended at this Time: ER Evaluation/Care Additional Information/Explanation: HERE FOR DETOX. PRESENTS INTOXICATED, STAGGERING GAIT, BELIGERENT AND ARGUMENTATIVE, THREATENING BEHAVIOR TOWARDS STAFF. DURING INTERVIEW PROCESS. CLIENT EXPRESSED HE NEEDED HELP DUE TO FEELING FEVERISH, C/O C.P. AND SOB. DISCUSSED CLIENT HE WILL BE TRANSFERRED TO [facility] FOR STABILIZATION PENDING DETOX AFTER BEING CLEARED PRESENTLY WE HAVE NO VACANCY. CLIENT AGREES TO PLAN. CLIENT WAS TRANSPORTED TO [facility] VIA 911. ENDOSERD TO DR. GOYAL
[2018-12-28 09:31] VITALS: BMI 22.2
--- NOTE | 2018-12-28 10:06 | HP ---
CIWA Score Nausea/Vomitin-No Nausea/No Vomiting Muscle Tremors: None Anxiety: 2 Agitation: 0-Normal Activity Paroxysmal Sweats: No Perspiration Orientation: 0-Oriented Tacttile Disturbances: 0-None Auditory Disturbances: 0-None Visual Disturbances: 0-None Headache: 0-None Present CIWA-Ar Total Score: 2 - Admission Criteria OASAS Guidelines: Admission for Medically Managed Detox: Requires at least one of the followin. CIWA greater than 12 2. Seizures within the past 24 hours 3. Delirium tremens within the past 24 hours 4. Hallucinations within the past 24 hours 5. Acute intervention needed for co occurring medical disorder 6. Acute intervention needed for co occurring psychiatric disorder 7. Severe withdrawal that cannot be handled at a lower level of care (continued vomiting, continued diarrhea, abnormal vital signs) requiring intravenous medication and/or fluids 8. Admission ROS BHS - HPI Allergies/Adverse Reactions: Allergies Allergy/AdvReac Type Severity Reaction Status Date / Time No Known Allergies Allergy Verified 12/28/18 09:15 History of Present Illness: pt here requesting detox from etoh use , reports 2 pints/day , previous detox at this facility 2 weeks ago , relapse after d/c , was in er this morning 2/2 intoxication / lack of bed availability , returns for detox, currently asymptomatic , utox + bzo , latest use yesterday ,, current symptoms as above , denies tremors, blackouts or seizures, reports cravings for etoh madonna if not drinking . pmhx : borderline dm , gout , left knee surgery 1985 2/2 basketball injury psych : denies Exam Limitations: No Limitations (pt here) - Review of Systems Constitutional: Loss of Appetite Respiratory: reports: No Symptoms reported Cardiac: reports: No Symptoms Reported GI: reports: Other (flank pain - seen in er this morning) : reports: No Symptoms Reported Musculoskeletal: reports: No Symptoms Reported Integumentary: reports: No Symptoms Reported Neuro: reports: No Symptoms reported Endocrine: reports: See HPI Psychiatric: reports: Orientated x3 Patient History - Patient Medical History Hx Anemia: No Hx Asthma: No Hx Chronic Obstructive Pulmonary Disease (COPD): No Hx Cancer: No Hx Cardiac Disorders: No Hx Congestive Heart Failure: No Hx Hypertension: No Hx Hypercholesterolemia: No Hx Pacemaker: No HX Cerebrovascular Accident: No Hx Seizures: No Hx Dementia: No Hx Diabetes: No Hx Gastrointestinal Disorders: No Hx Liver Disease: No Hx Genitourinary Disorders: No Hx Sexually Transmitted Disorders: No Hx Renal Disease (ESRD): No Hx Thyroid Disease: No Hx Human Immunodeficiency Virus (HIV): No (Negative June 2018) Hx Hepatitis C: No Hx Depression: Yes (Not on medication) Hx Suicide Attempt: No Hx Bipolar Disorder: No Hx Schizophrenia: No - Patient Surgical History Past Surgical History: Yes Hx Neurologic Surgery: No Hx Cataract Extraction: No Hx Cardiac Surgery: No Hx Lung Surgery: No Hx Breast Surgery: No Hx Breast Biopsy: No Hx Abdominal Surgery: No Hx Appendectomy: No Hx Cholecystectomy: No Hx Genitourinary Surgery: No Hx Section: No Hx Orthopedic Surgery: Yes (LEFT KNEE SURGERY 1984) Anesthesia Reaction: No - PPD History Results: 07/09/18NEG CXR - Smoking Cessation Smoking history: Current some day smoker Have you smoked in the past 12 months: Yes Aproximately how many cigarettes per day: 5 Cigars Per Day: 0 Hx Chewing Tobacco Use: No Initiated information on smoking cessation: No - Substances abused Alcohol Substance route: Oral Frequency: Daily Amount used: 1 PINT VODKA/12 BEERS Age of first use: 7 Date of last use: 12/28/18 Marijuana/Hashish Substance route: Smoking Frequency: Daily Amount used: 3BAGS Age of first use: 20 Date of last use: 12/27/18 Heroin Substance route: Inhalation Frequency: Daily Amount used: 2bags Age of first use: 35 Date of last use: 12/25/18 Family Disease History - Family Disease History Family Disease History: Diabetes: Mother (ALCOHOL AND DRUG ABUSE), Sister, Other : Grandparent (ALCOHOL AND DRUG abuse), Father (ALCOHOL AND DRUG ABUSE), Mother , Brother (alcohol,dsa) Admission Physical Exam S - Vital Signs Vital Signs: Vital Signs - 24 hr 12/28/18 12/28/18 02:46 09:16 Temperature 97.8 F 98.2 F Pulse Rate 79 76 Respiratory 20 19 Rate Blood Pressure 161/95 144/89 - Physical General Appearance: Yes: No Apparent Distress HEENTM: Yes: Hearing grossly Normal, Normocephalic, Normal Voice, Other (poor dentition , many missing teeth) Respiratory: Yes: Lungs Clear, Normal Breath Sounds, No Respiratory Distress, No Accessory Muscle Use Neck: Yes: No masses,lesions,Nodules, Trachea in good position Cardiology: Yes: Regular Rhythm, Regular Rate, S1, S2 Abdominal: Yes: Non Tender, Soft Back: Yes: Normal Inspection Musculoskeletal: Yes: Gait Steady Extremities: Yes: Normal Range of Motion, Non-Tender Neurological: Yes: Fully Oriented, Alert, Motor Strength 5/5 Integumentary: Yes: Warm - Diagnostic (1) cannabis dependence Current Visit: Yes Status: Acute (2) Alcohol dependence Current Visit: Yes Status: Chronic Qualifiers: Substance use status: uncomplicated Qualified Code(s): F10.20 - Alcohol dependence, uncomplicated Breathalyzer - Breathalyzer Breathalyzer: 0.173 Urine Drug Screen - Test Device Lot number: [id number] Expiration date: 10/08/20 - Control Is test valid?: Yes - Results Drug screen NEGATIVE: No Urine drug screen results: THC-Marijuana, BZO-Benzodiazepines Inpatient Rehab Admission - Rehab Decision to Admit Inpatient rehab admission?: Yes - Initial Determination Are CD services needed?: Yes Free of communicable disease: Yes Not in need of hospitalization: Yes - Rehab Admission Criteria Previous failed treatment: Yes Poor recovery environment: Yes Comorbidities: No Lacks judgement: Yes Patient is meeting Inpatient Rehab admission criteria:: Yes
[2018-12-28] MEDS ORDERED: MAGNESIUM CITRATE 300 ML BOTTLE PO PRN (13:06)
[2018-12-28] MEDS ORDERED: MAG HYDROX/AL HYDROX/SIMETH 30 ML UNIT-DOSE CUP PO PRN (13:06)
[2018-12-28] MEDS ORDERED: P-EPHED 60MG/TRIPROLIDI 2.5MG TABLET PO PRN (13:06)
[2018-12-28] MEDS ORDERED: MAGNESIUM HYDROX 2400MG/30ML ORAL SUSPENSION 30 ML CUP PO PRN (13:06)
[2018-12-28] MEDS ORDERED: MENTHOL/PHENOL 1 EACH UD MM PRN (13:06)
[2018-12-28] MEDS ORDERED: guaiFENesin 200 MG/10 ML 10 ML UNIT-DOSE CUPS PO PRN (13:06)
[2018-12-28] MEDS ORDERED: cloNIDine HCL 0.1 MG TABLET PO ONE (14:00)
[2018-12-28 16:23] LABS: EPI CELLS 5.1 /HPF (0-5/HPF); HYALINE CASTS 30 /lpf (0-8); URINE APPEARANCE CLOUDY; URINE BACTERIA 190.2 /hpf (NEGATIVE); URINE BILIRUBIN NEGATIVE (NEGATIVE); URINE COLOR DK YELLOW; URINE GLUCOSE (UA) NEGATIVE (NEGATIVE); URINE KETONE 1+ (NEGATIVE); URINE LEUK ESTERASE 2+ (NEGATIVE); URINE NITRITE NEGATIVE (NEGATIVE); URINE PROTEIN 1+ (NEGATIVE); URINE RBC 2 /hpf (0-4); URINE WBC 47 /hpf (0-5)
[2018-12-28] MEDS: MELATONIN 5 MG TABLETS PO PRN (22:00)
[2018-12-28] MEDS: THIAMINE HCL 100 MG TABLET (FP) PO SCH (23:15)
--- NOTE | 2018-12-29 09:21 | PN ---
[facility] Progress Note Note: Laboratory Tests 12/28/18 16:13 Urine Color Dk yellow Urine Appearance Cloudy Urine pH 5.0 Ur Specific [place] 1.022 Urine Protein 1+ H Urine Glucose (UA) Negative Urine Ketones 1+ H Urine Blood Negative Urine Nitrite Negative Urine Bilirubin Negative Urine Urobilinogen 1.0 Ur Leukocyte Esterase 2+ H Urine WBC (Auto) 47 Urine RBC (Auto) 2 Urine Casts (Auto) 30 U Epithel Cells (Auto) 5.1 Urine Bacteria (Auto) 190.2 Vital Signs Temperature 97.6 F 12/29/18 07:11 Pulse Rate 67 12/29/18 07:11 Respiratory Rate 18 12/29/18 07:11 Blood Pressure 154/85 12/29/18 07:11 O2 Sat by Pulse Oximetry (%) UA APPRECIATED. PATIENT REMAINS AFEBRILE. ORAL FLUIDS ENCOURAGED. WILL REPEAT UA IN 48 HOURS.
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
[2018-12-29] MEDS: PRENATAL VITAMINS W/ FOLIC ACID TABLET (FP) PO SCH (09:58)
[2018-12-29] MEDS: ACETAMINOPHEN 325 MG TABLET (FP) PO PRN (09:58)
[2018-12-29] MEDS: MELATONIN 5 MG TABLETS PO PRN (21:14)
[2018-12-29] MEDS: THIAMINE HCL 100 MG TABLET (FP) PO SCH (21:14)
[2018-12-30] MEDS: ACETAMINOPHEN 325 MG TABLET (FP) PO PRN (06:05)
[2018-12-30] MEDS: PRENATAL VITAMINS W/ FOLIC ACID TABLET (FP) PO SCH (09:34)
[2018-12-30] MEDS: hydrOXYzine HCL 25 MG TABLET (FP) PO PRN ×2 (09:35→22:01)
[2018-12-30 10:40] LABS: EPI CELLS 5.7 /HPF (0-5/HPF); HYALINE CASTS 6 /lpf (0-8); URINE APPEARANCE CLEAR; URINE BACTERIA 45.4 /hpf (NEGATIVE); URINE BILIRUBIN NEGATIVE (NEGATIVE); URINE COLOR YELLOW; URINE GLUCOSE (UA) NEGATIVE (NEGATIVE); URINE KETONE NEGATIVE (NEGATIVE); URINE LEUK ESTERASE TRACE (NEGATIVE); URINE NITRITE NEGATIVE (NEGATIVE); URINE PROTEIN NEGATIVE (NEGATIVE); URINE RBC 2 /hpf (0-4); URINE UROBILINOGEN 0.2 mg/dL (0.2-1.0); URINE WBC 5 /hpf (0-5)
[2018-12-30] MEDS: MELATONIN 5 MG TABLETS PO PRN (22:01)
[2018-12-30] MEDS: THIAMINE HCL 100 MG TABLET (FP) PO SCH (22:01)
[2018-12-31] MEDS: IBUPROFEN 400 MG TABLET (FP) PO PRN ×2 (06:29→21:29)
[2018-12-31] MEDS: PRENATAL VITAMINS W/ FOLIC ACID TABLET (FP) PO SCH (10:52)
[2018-12-31] MEDS: ACETAMINOPHEN 325 MG TABLET (FP) PO PRN (11:19)
[2018-12-31] MEDS: MELATONIN 5 MG TABLETS PO PRN (21:28)
[2018-12-31] MEDS: THIAMINE HCL 100 MG TABLET (FP) PO SCH (21:28)
[2018-12-31] MEDS: hydrOXYzine HCL 25 MG TABLET (FP) PO PRN (21:29)
[2019-01-01] MEDS: PRENATAL VITAMINS W/ FOLIC ACID TABLET (FP) PO SCH (10:38)
[2019-01-01] MEDS: hydrOXYzine HCL 25 MG TABLET (FP) PO PRN (10:40)
[2019-01-01] MEDS: SUVOREXANT 10 MG TABLET PO PRN (21:44)
[2019-01-01] MEDS: THIAMINE HCL 100 MG TABLET (FP) PO SCH (21:44)
[2019-01-01] MEDS: MELATONIN 5 MG TABLETS PO PRN (21:44)
[2019-01-01] MEDS: OLANZapine 10 MG TABLET PO SCH (21:45)
[2019-01-02] MEDS: PRENATAL VITAMINS W/ FOLIC ACID TABLET (FP) PO SCH (09:41)
[2019-01-02] MEDS: THIAMINE HCL 100 MG TABLET (FP) PO SCH (21:11)
[2019-01-02] MEDS: OLANZapine 10 MG TABLET PO SCH (21:11)
[2019-01-02] MEDS: ACETAMINOPHEN 325 MG TABLET (FP) PO PRN (21:12)
[2019-01-02] MEDS: SUVOREXANT 10 MG TABLET PO PRN (21:12)
[2019-01-03] MEDS: PRENATAL VITAMINS W/ FOLIC ACID TABLET (FP) PO SCH (10:05)
[2019-01-03] MEDS: ACETAMINOPHEN 325 MG TABLET (FP) PO PRN ×2 (10:06→21:58)
[2019-01-03] MEDS: MELATONIN 5 MG TABLETS PO PRN (21:56)
[2019-01-03] MEDS: THIAMINE HCL 100 MG TABLET (FP) PO SCH (21:57)
[2019-01-03] MEDS: OLANZapine 10 MG TABLET PO SCH (21:57)
[2019-01-04] MEDS: PRENATAL VITAMINS W/ FOLIC ACID TABLET (FP) PO SCH (10:14)
[2019-01-04] MEDS: ACETAMINOPHEN 325 MG TABLET (FP) PO PRN ×2 (10:15→21:10)
[2019-01-04] MEDS: OLANZapine 10 MG TABLET PO SCH (21:09)
[2019-01-04] MEDS: MELATONIN 5 MG TABLETS PO PRN (21:09)
[2019-01-04] MEDS: THIAMINE HCL 100 MG TABLET (FP) PO SCH (21:09)
[2019-01-04] MEDS ORDERED: SUVOREXANT 10 MG TABLET PO PRN (22:00)
[2019-01-05] MEDS: PRENATAL VITAMINS W/ FOLIC ACID TABLET (FP) PO SCH (09:45)
[2019-01-05] MEDS: ACETAMINOPHEN 325 MG TABLET (FP) PO PRN (09:47)
[2019-01-05] MEDS: hydrOXYzine HCL 25 MG TABLET (FP) PO PRN ×2 (09:47→21:36)
[2019-01-05] MEDS: MELATONIN 5 MG TABLETS PO PRN (21:36)
[2019-01-05] MEDS: IBUPROFEN 400 MG TABLET (FP) PO PRN (21:37)
[2019-01-05] MEDS: OLANZapine 10 MG TABLET PO SCH (21:37)
[2019-01-05] MEDS: THIAMINE HCL 100 MG TABLET (FP) PO SCH (21:37)
[2019-01-06] MEDS: PRENATAL VITAMINS W/ FOLIC ACID TABLET (FP) PO SCH (09:37)
[2019-01-06] MEDS: IBUPROFEN 400 MG TABLET (FP) PO PRN (09:38)
[2019-01-06] MEDS: THIAMINE HCL 100 MG TABLET (FP) PO SCH (21:05)
[2019-01-06] MEDS: OLANZapine 10 MG TABLET PO SCH (21:05)
[2019-01-06] MEDS: MELATONIN 5 MG TABLETS PO PRN (21:06)
[2019-01-06] MEDS: ACETAMINOPHEN 325 MG TABLET (FP) PO PRN (21:07)
[2019-01-07] MEDS: IBUPROFEN 400 MG TABLET (FP) PO PRN (09:11)
[2019-01-07] MEDS: PRENATAL VITAMINS W/ FOLIC ACID TABLET (FP) PO SCH (09:11)
--- NOTE | 2019-01-07 16:06 | PN ---
S Progress Note Note: Patient reports sleeping poorly despite taking Belsomra 10 mg at bedtime. Discussed with patient increasing Belsomra to 15mg/hs
[2019-01-07] MEDS ORDERED: SUVOREXANT 10 MG TABLET PO PRN ×2 (22:00)
[2019-01-07] MEDS: OLANZapine 10 MG TABLET PO SCH (22:16)
[2019-01-07] MEDS: THIAMINE HCL 100 MG TABLET (FP) PO SCH (22:16)
[2019-01-07] MEDS: ACETAMINOPHEN 325 MG TABLET (FP) PO PRN (22:20)
[2019-01-08] MEDS: PRENATAL VITAMINS W/ FOLIC ACID TABLET (FP) PO SCH (09:42)
[2019-01-08] MEDS: ACETAMINOPHEN 325 MG TABLET (FP) PO PRN (09:43)
[2019-01-08] MEDS: hydrOXYzine HCL 25 MG TABLET (FP) PO PRN (09:43)
[2019-01-08] MEDS: LIDOCAINE 5% TOPICAL PATCH TP SCH (10:29)
--- NOTE | 2019-01-08 13:34 | PN ---
[facility] Progress Note (SOAP) Subjective: Patient c/o back and left knee pain. PHx of surgery on left knee for ligament and tendon tears. Back pain with stiffness in the AM Objective: 01/08/19 13:33 Vital Signs (72 hours) 01/06/19 01/06/19 01/06/19 00:30 03:30 07:13 Temperature 96.9 F L Pulse Rate 72 Respiratory 18 18 18 Rate Blood Pressure 149/90 01/07/19 01/07/19 01/07/19 00:30 03:30 06:46 Temperature 97.8 F Pulse Rate 80 Respiratory 18 18 18 Rate Blood Pressure 146/84 01/08/19 01/08/19 01/08/19 00:30 03:30 06:53 Temperature 97.9 F Pulse Rate 64 Respiratory 18 18 18 Rate Blood Pressure 152/89 01/08/19 09:30 Temperature Pulse Rate 78 Respiratory 18 Rate Blood Pressure 140/79 01/08/19 13:34 - Physical General Appearance: No Apparent Distress Respiratory: Lungs Clear,No Respiratory Distress, No Accessory Muscle Use Cardiology: Regular Rhythm, Regular Rate, S1, S2 Abdominal: +BS Back: spine aligned, full ROM, non-tender to palpation Musculoskeletal: Full weight bearing, Gait Steady Assessment: Osteoarthritis back and Left knee 01/08/19 13:36 Plan: Increased ibuprofen, added lidoderm patch and lamine-rodriguez to regimen. Encouraged patient to continue to be active and walk to prevent muscle stiffness.
[2019-01-08] MEDS: THIAMINE HCL 100 MG TABLET (FP) PO SCH (21:14)
[2019-01-08] MEDS: OLANZapine 10 MG TABLET PO SCH (21:14)
[2019-01-08] MEDS: LIDOCAINE PATCH REMOVAL MC SCH (21:17)
[2019-01-08] MEDS ORDERED: SUVOREXANT 5 MG TABLET PO PRN (21:18)
[2019-01-08] MEDS: IBUPROFEN 600 MG TABLET (FP) PO PRN (21:18)
[2019-01-08] MEDS ORDERED: SUVOREXANT 15 MG TABLET PO PRN (21:27)
[2019-01-08] MEDS ORDERED: METHYL SALICYLATE/MENTHOL OINT 30 GM TUBE TP SCH (22:00)
[2019-01-08] MEDS: METHYL SALICYLATE/MENTHOL OINT 30 GM TUBE TP SCH (22:00)
[2019-01-09] MEDS: IBUPROFEN 600 MG TABLET (FP) PO PRN (06:35)
[2019-01-09] MEDS: LIDOCAINE 5% TOPICAL PATCH TP SCH (09:55)
[2019-01-09] MEDS: PRENATAL VITAMINS W/ FOLIC ACID TABLET (FP) PO SCH (09:55)
[2019-01-09] MEDS: THIAMINE HCL 100 MG TABLET (FP) PO SCH (21:45)
[2019-01-09] MEDS: OLANZapine 10 MG TABLET PO SCH (21:45)
[2019-01-09] MEDS: hydrOXYzine HCL 25 MG TABLET (FP) PO PRN (21:45)
[2019-01-09] MEDS: ACETAMINOPHEN 325 MG TABLET (FP) PO PRN (21:46)
[2019-01-09] MEDS: LIDOCAINE PATCH REMOVAL MC SCH (21:46)
[2019-01-09] MEDS: METHYL SALICYLATE/MENTHOL OINT 30 GM TUBE TP SCH (22:38)
[2019-01-10] MEDS: IBUPROFEN 600 MG TABLET (FP) PO PRN (06:01)
[2019-01-10 07:05] VITALS: TEMP 97.6
[2019-01-10] MEDS: PRENATAL VITAMINS W/ FOLIC ACID TABLET (FP) PO SCH (09:59)
[2019-01-10] MEDS: LIDOCAINE 5% TOPICAL PATCH TP SCH (09:59)
--- NOTE | 2019-01-10 10:52 | PN ---
S Progress Note (SOAP) Subjective: Patient to be discharged today. Hospital Course: patient attended groups, had 1 :1 session with counselor, was adherent to his treatment plan and his medication regimen. Was seen by psychiatry for insomnia, which he states resolved with medication. He had not urgent or acute medical problems while in rehab treatment. Objective: - Physical General Appearance: Appropriate, No Apparent Distress HEENTM: Normocephalic, PERRLA, poor dentition , many missing teeth Respiratory: Lungs Clear, No Respiratory Distress Neck: supple Cardiology: S1, S2 Abdominal: +BS,Non Tender, Soft Musculoskeletal: Full ROM, full weight bearing, Gait Steady Neurological: Oriented, Motor Strength 5/5, No neurological deficits noted. Integumentary: warm, dry adequate skin turgor, color consistent throughout trunk and extremities. 01/10/19 10:48 Vital Signs (72 hours) 01/08/19 01/08/19 01/08/19 00:30 03:30 06:53 Temperature 97.9 F Pulse Rate 64 Respiratory 18 18 18 Rate Blood Pressure 152/89 01/08/19 01/09/19 01/09/19 09:30 00:30 03:30 Temperature Pulse Rate 78 Respiratory 18 18 18 Rate Blood Pressure 140/79 01/09/19 01/10/19 01/10/19 07:18 00:30 03:30 Temperature 97.8 F Pulse Rate 81 Respiratory 18 18 18 Rate Blood Pressure 115/68 01/10/19 07:04 Temperature 97.6 F Pulse Rate 66 Respiratory 18 Rate Blood Pressure 139/87 01/10/19 10:51 01/10/19 11:06 Assessment: Medically stable for discharge Discharge Dx: ETOH dependence Cannabis dependence 01/10/19 11:08 Plan: On-going continuation of care: patient will continue treatment at [facility]. He receives primary care from a provider on [facility] in [place] ( name unknown). His prescriptions were transmitted to his pharmacy.
[2019-01-10] MEDS: OLANZapine 10 MG TABLET PO SCH (21:10)
[2019-01-10] MEDS: THIAMINE HCL 100 MG TABLET (FP) PO SCH (21:10)
[2019-01-10] MEDS: hydrOXYzine HCL 25 MG TABLET (FP) PO PRN (21:10)
[2019-01-10] MEDS: ACETAMINOPHEN 325 MG TABLET (FP) PO PRN (21:11)
[2019-01-10] MEDS: LIDOCAINE PATCH REMOVAL MC SCH (21:12)
[2019-01-10] MEDS: METHYL SALICYLATE/MENTHOL OINT 30 GM TUBE TP SCH (22:50)
[2019-01-11 07:23] VITALS: BP 141/94; PULSE 71
[2019-01-11] MEDS: LIDOCAINE 5% TOPICAL PATCH TP SCH (08:59)
[2019-01-11] MEDS: PRENATAL VITAMINS W/ FOLIC ACID TABLET (FP) PO SCH (08:59)
== END 2019-01-11 09:00 | disposition home or self-care (01) | DRG 772 ==
LOC: YASAS 01:20 → Y3W 13:09
PROVIDERS: ADMIT Neuromusculoskeletal Medicine & OMM; ATTEND Neuromusculoskeletal Medicine & OMM
PROC: HZ42ZZZ Group Counseling for Substance Abuse Treatment, Cognitive-Behavioral (ICD-10-PCS; principal; 2018-12-28)
DX: F11.20 Opioid dependence, uncomplicated (principal); F10.20 Alcohol dependence, uncomplicated; F12.20 Cannabis dependence, uncomplicated; F17.210 Nicotine dependence, cigarettes, uncomplicated; F19.282 Other psychoactive substance dependence with psychoactive substance-induced sleep disorder; F31.9 Bipolar disorder, unspecified; F25.9 Schizoaffective disorder, unspecified; M17.12 Unilateral primary osteoarthritis, left knee; M47.9 Spondylosis, unspecified; M10.9 Gout, unspecified; H91.92 Unspecified hearing loss, left ear; M54.5 Low back pain; G89.29 Other chronic pain; R73.03 Prediabetes; Z91.14 Patient's other noncompliance with medication regimen
CPT/HCPCS: 36415; 70450-TC; 71101-TC-RT-FY; 72125-TC; 80053; 80307; 81003; 85025; 87086; 93005; 93010; 99284-25; J0735

== ENCOUNTER 2018-12-28 02:44 | Emergency (ER) | payer OTHER ==
--- NOTE | 2018-12-28 03:18 | PDOC ---
History of Present Illness - General Stated Complaint: INTOX Time Seen by Provider: 12/28/18 03:17 - History of Present Illness Initial Comments: 58yo M with PMH of substance use (ETOH, Marijuana), anemia complaining of L. side pain. Patient initially presented to [facility] for detox and rehab and was sent to the ED for medical clearance. Patient states "I'm losing my mind" and "I 'm drinking and blacking out." Reports that he has fallen recently but denies hitting his head, loss of consciousness, nausea, or vomiting. The pain overlying his left side started yesterday. It worsens if he moves in a certain way or extends his arm above his head. No urinary symptoms: no dysuria, hematuria, or frequency. Patient denies straining himself or lifting heavy objects recently. Reports dyspnea on exertion but no cough. Denies history of alcohol withdrawal seizures. Endorses chills, but no fevers or chest pain. Past History - Past Medical History Allergies/Adverse Reactions: Allergies Allergy/AdvReac Type Severity Reaction Status Date / Time No Known Allergies Allergy Verified 10/04/18 19:45 Home Medications: Ambulatory Orders Olanzapine [ZyPREXA -] 10 mg PO HS #30 tablet 08/21/18 Gabapentin [Neurontin] 300 mg PO BID #28 capsule 10/18/18 Anemia: No Asthma: No Cancer: No Cardiac Disorders: No CVA: No COPD: No CHF: No Dementia: No Diabetes: No GI Disorders: No Disorders: No HTN: No Hypercholesterolemia: No Kidney Stones: No Liver Disease: No Psychiatric Problems: Yes (Depression, schizophrenia) Seizures: No Thyroid Disease: No - Surgical History Abdominal Surgery: No Appendectomy: No Cardiac Surgery: No Cholecystectomy: No Lung Surgery: No Neurologic Surgery: No Orthopedic Surgery: Yes (LEFT KNEE SURGERY 1984) - Reproductive History Testicular Surgery: No - Immunization History Immunization Up to Date: Yes - Suicide/Smoking/Psychosocial Hx Smoking Status: Yes Smoking History: Current some day smoker Have you smoked in the past 12 months: Yes Number of Cigarettes Smoked Daily: 5 Cigars Per Day: 0 'Breaking Loose' booklet given: 12/15/18 Hx Alcohol Use: Yes Drug/Substance Use Hx: Yes Substance Use Type: Alcohol, Marijuana Hx Substance Use Treatment: Yes ([facility]) Review of Systems - Review of Systems Comments:: Constitutional: no fever, +chills HEENT: no throat pain, no dysphagia Cardiovascular: no chest pain, no palpitations Respiratory: no cough, +shortness of breath Gastrointestinal: no abdominal pain, no nausea Genitourinary: no dysuria, no frequency Musculoskeletal: +R. side pain, no L. side pain Skin: no rash, no itching Neurologic: no headache, no weakness *Physical Exam - Physical Exam Comments: General: Awake, alert, and fully oriented, in no acute distress Head: No signs of trauma Eyes: EOMI, sclera anicteric ENT: Moist mucus membranes, fruity breath Neck: Normal ROM, supple Lungs: Lungs clear, Normal breath sounds Cardio: Regular rhythm, S1 and S2 present Abdomen: Soft, nontender; CVA tenderness on right with no overlying hematoma or lesion; no CVA tenderness on left Extremities: Normal range of motion, Distal pulses present; superficial hemostatic abrasions present on bilateral knees SKIN: Warm, Dry, normal turgor Neurologic: Cranial nerves II through XII grossly intact. Normal speech ED Treatment Course - LABORATORY CBC & Chemistry Diagram: 12/28/18 04:00 12/28/18 04:00 Medical Decision Making - Medical Decision Making 58yo M with PMH of substance use (ETOH, Marijuana), anemia complaining of L. side pain. DDX including but not limited to rib fracture, intoxication, kidney contusion, UTI, anemia Labs EKG CXR, R. Rib series CT Head, C-spine Motrin for pain Concern for brain bleed as patient has evidence of falling with knee abrasions. 12/28/18 03:18 EKG: rate 80, QTc 472, NSR CBC WBC 3.4 K/mm3 (4.0-10.0) L 12/28/18 04:00 RBC 4.34 M/mm3 (4.00-5.60) 12/28/18 04:00 Hgb 12.6 GM/dL (11.7-16.9) 12/28/18 04:00 Hct 38.1 % (35.4-49) 12/28/18 04:00 MCV 87.6 fl (80-96) 12/28/18 04:00 MCH 29.0 pg (25.7-33.7) 12/28/18 04:00 MCHC 33.1 g/dl (32.0-35.9) 12/28/18 04:00 RDW 16.1 % (11.9-15.9) H 12/28/18 04:00 Plt Count 150 K/MM3 (134-434) 12/28/18 04:00 MPV 8.4 fl (7.5-11.1) D 12/28/18 04:00 Absolute Neuts (auto) 1.4 K/mm3 (1.5-8.0) L 12/28/18 04:00 Neutrophils % 41.9 % (42.8-82.8) L D 12/28/18 04:00 Lymphocytes % 40.6 % (8-40) H 12/28/18 04:00 Monocytes % 14.3 % (3.8-10.2) H 12/28/18 04:00 Eosinophils % 2.3 % (0-4.5) 12/28/18 04:00 Basophils % 0.9 % (0-2.0) 12/28/18 04:00 Nucleated RBC % 0 % (0-0) 12/28/18 04:00 Low WBC No anemia CMP Sodium 138 mmol/L (136-145) 12/28/18 04:00 Potassium 3.7 mmol/L (3.5-5.1) 12/28/18 04:00 Chloride 103 mmol/L (98-107) 12/28/18 04:00 Carbon Dioxide 26 mmol/L (21-32) 12/28/18 04:00 Anion Gap 9 MMOL/L (8-16) 12/28/18 04:00 BUN 6.1 mg/dL (7-18) L 12/28/18 04:00 Creatinine 0.7 mg/dL (0.55-1.3) 12/28/18 04:00 Est GFR (CKD-EPI)AfAm 120.56 12/28/18 04:00 Est GFR (CKD-EPI)NonAf 104.02 12/28/18 04:00 Random Glucose 149 mg/dL (74-106) H 12/28/18 04:00 Calcium 8.6 mg/dL (8.5-10.1) 12/28/18 04:00 Total Bilirubin 1.1 mg/dL (0.2-1) H 12/28/18 04:00 AST 68 U/L (15-37) H 12/28/18 04:00 ALT 65 U/L (13-61) H 12/28/18 04:00 Alkaline Phosphatase 122 U/L (45-117) H 12/28/18 04:00 Total Protein 7.7 g/dl (6.4-8.2) 12/28/18 04:00 Albumin 3.8 g/dl (3.4-5.0) 12/28/18 04:00 Electrolytes unremarkable Transaminitis present Alcohol 191.4 CT Head, via Imaging [facility] home demonstrator: "No acute brain parenchymal abnormality. No hemorrhage, mass or acute territorial infarct. Atrophy. No skull fracture. Chronic fracture right zygomatic arch. Bilateral nasal fractures, probably chronic. Dental disease. Clear visualized paranasal sinuses. Hypopneumatized mastoid air cells" CT Cspine, via [facility] demonstrator: "FINDINGS: Negative for cervical spine fracture or malalignment. Degenerative changes. Bleb right lung apex" CXR, R.Rib series negative for acute pathology, my impression Pending UA 12/28/18 06:35 UA negative for blood Positive for benzos, marijuana Plan to discharge. Patient to be transported via security van to [facility] for intake. *DC/Admit/Observation/Transfer Diagnosis at time of Disposition: Right flank pain - Discharge Dispostion Disposition: HOME Condition at time of disposition: Good - Referrals Referrals: Dante Arceo [Primary Care Provider] - - Patient Instructions Printed Discharge Instructions: DI for Alcohol Abuse Additional Instructions: Present to [facility] [place] [address] Follow-up with you primary care physician in 5-7 days to discuss this ED visit and to further evaluate your symptoms. Your care is not complete until you do so. Call and make an appointment. Immediate medical attention is required if you have: a seizure or develop tremors or hallucinations and do not have access to alcohol, vomiting, chest pain, shortness of breath, abdominal pain, thoughts of self-harm, or an other new or concerning symptoms. If you think you are having an emergency, call for emergency medical services or present to the emergency department right away. - Post Discharge Activity
[2018-12-28 03:22] VITALS: BMI 22.6
--- NOTE | 2018-12-28 03:32 | PDOC ---
Attending Attestation - Resident Resident Name: FlorenceKylePam - ED Attending Attestation I have performed the following: I have examined & evaluated the patient, The case was reviewed & discussed with the resident, I agree w/resident's findings & plan - HPI HPI: 12/28/18 06:09 58-year-old male sent from [facility] with complaints of right flank pain status post remote fall. Patient was seeking alcohol detox - Physicial Exam PE: 12/28/18 06:11 agree with resident exam - Medical Decision Making 12/28/18 06:12 58-year-old male with right posterior rib point tenderness CT scans of the head and cervical spine show no acute traumatic injury Right rib series shows no obvious fracture Patient alert and oriented 4 Urinalysis pending, CT abdomen and pelvis if indicated though exam most consistent with rib contusion Plan for DC back to rehabilitation facility in the morning
[2018-12-28] MEDS ORDERED: IBUPROFEN 400 MG TABLET (FP) PO ONE ×2 (03:52→04:00)
[2018-12-28 04:18] LABS: BASO % 0.9 % (0-2.0); EOS % 2.3 % (0-4.5); HEMATOCRIT 38.1 % (35.4-49); HEMOGLOBIN 12.6 GM/dL (11.7-16.9); LYMPH % 40.6 % (8-40); MCHC 33.1 g/dl (32.0-35.9); MEAN CELL VOLUME 87.6 fl (80-96); MEAN PLT VOLUME 8.4 fl (7.5-11.1); MONO % 14.3 % (3.8-10.2); NEUT % 41.9 % (42.8-82.8); PLATELET COUNT 150 K/MM3 (134-434); RBC 4.34 M/mm3 (4.00-5.60); RDW 16.1 % (11.9-15.9); WHITE BLOOD COUNT 3.4 K/mm3 (4.0-10.0)
[2018-12-28 04:42] LABS: ALBUMIN 3.8 g/dl (3.4-5.0); BILIRUBIN,TOTAL 1.1 mg/dL (0.2-1); BLOOD UREA NITROGEN 6.1 mg/dL (7-18); CALCIUM 8.6 mg/dL (8.5-10.1); CREATININE 0.7 mg/dL (0.55-1.3); POTASSIUM 3.7 mmol/L (3.5-5.1); TOT PROT 7.7 g/dl (6.4-8.2)
[2018-12-28 06:39] LABS: COCAINE, UR NEGATIVE ng/ml (CUTOFF=300); METHADONE, UR NEGATIVE ng/ml (CUTOFF=300); OPIATES, URI NEGATIVE ng/ml (CUTOFF=300); PHENCYCLIDINE,URINE NEGATIVE ng/ml (CUTOFF=25); URINE AMPHETAMINES NEGATIVE ng/ml (CUTOFF=500); URINE BARBITURATES NEGATIVE ng/ml (CUTOFF=200)
[2018-12-28 06:42] VITALS: TEMP 98.6
[2018-12-28 06:43] LABS: URINE BENZODIAZEPINES POSITIVE ng/ml (CUTOFF=200)
[2018-12-28 06:55] LABS: EPI CELLS 4.3 /HPF (0-5/HPF); HYALINE CASTS 13 /lpf (0-8); URINE APPEARANCE CLEAR; URINE BACTERIA 17.3 /hpf (NEGATIVE); URINE BILIRUBIN NEGATIVE (NEGATIVE); URINE COLOR YELLOW; URINE GLUCOSE (UA) NEGATIVE (NEGATIVE); URINE KETONE TRACE (NEGATIVE); URINE LEUK ESTERASE TRACE (NEGATIVE); URINE NITRITE NEGATIVE (NEGATIVE); URINE PROTEIN TRACE (NEGATIVE); URINE RBC 2 /hpf (0-4); URINE WBC 6 /hpf (0-5)
[2018-12-28 08:44] VITALS: BP 120/77; PULSE 96
--- NOTE | 2018-12-28 15:17 | EKG ---
Test Reason : Blood Pressure : / mmHG Vent. Rate : 080 BPM Atrial Rate : 080 BPM P-R Int : 192 ms QRS Dur : 104 ms QT Int : 410 ms P-R-T Axes : 054 062 066 degrees QTc Int : 472 ms NORMAL SINUS RHYTHM NORMAL ECG WHEN COMPARED WITH ECG OF 30-MAR-2018 20:50, NO SIGNIFICANT CHANGE WAS FOUND Confirmed by KRYSTIAN SU MD ([id number]) on 12/28/2018 3:17:18 PM Referred By: Confirmed By:RKYSTIAN SU MD
== END 2018-12-28 08:43 | disposition home or self-care (01) ==
LOC: JER 02:44
DX: R10.31 Right lower quadrant pain (principal); F17.210 Nicotine dependence, cigarettes, uncomplicated
CPT/HCPCS: 36415; 70450-TC; 71101-TC-RT-FY; 72125-TC; 80053; 80307; 81003; 85025; 87086; 93005; 93010; 99284-25

== ENCOUNTER 2019-07-30 15:37 | Inpatient (IN) | payer OTHER ==
--- NOTE | 2019-07-30 17:32 | HP ---
CIWA Score Nausea/Vomitin-Mild Nausea/No Vomiting Muscle Tremors: None Anxiety: 1-Mildly Anxious Agitation: 1-Slight > Activity Paroxysmal Sweats: No Perspiration Orientation: 3-Disoriented Date>2 days Tacttile Disturbances: 2-Mild Itch/Numbness/Burn Auditory Disturbances: 0-None Visual Disturbances: 2-Mild Sensitivity Headache: 0-None Present CIWA-Ar Total Score: 10 - Admission Criteria OASAS Guidelines: Admission for Medically Managed Detox: Requires at least one of the followin. CIWA greater than 12 2. Seizures within the past 24 hours 3. Delirium tremens within the past 24 hours 4. Hallucinations within the past 24 hours 5. Acute intervention needed for co occurring medical disorder 6. Acute intervention needed for co occurring psychiatric disorder 7. Severe withdrawal that cannot be handled at a lower level of care (continued vomiting, continued diarrhea, abnormal vital signs) requiring intravenous medication and/or fluids 8. Admitting History and Physical - Past Medical History Infectious Disease: Yes: Other (positive ppd treated) Psych: Yes: Depression - Smoking History Smoking history: Current some day smoker Have you smoked in the past 12 months: Yes Aproximately how many cigarettes per day: 5 - Alcohol/Substance Use Hx Alcohol Use: Yes Number of Drinks Daily: 8 - Social History ADL: Independent History of Recent Travel: No Admission ROS [facility] Allergies/Adverse Reactions: Allergies Allergy/AdvReac Type Severity Reaction Status Date / Time No Known Allergies Allergy Verified 12/28/18 09:15 History of Present Illness: 59 y.o. male pt here requesting detox from etoh use , reports 1224 beers/day , and 1/2 pint /week liquor, previous detox at this facility December 2018 , latest use today , current JON 0.200, current symptoms as above , denies tremors, blackouts or seizures, reports cravings for etoh if not drinking . pmhx : borderline dm , gout , left knee surgery 1985 2/2 basketball injury psych : denies Exam Limitations: Clinical Condition, Intoxication - Review of Systems Constitutional: Loss of Appetite, Unintentional Wgt. Loss (claims 50 lbs loss) EENT: reports: Other (missing teeth) Respiratory: reports: No Symptoms reported Cardiac: reports: No Symptoms Reported GI: reports: Constipated, Poor Appetite : reports: No Symptoms Reported Musculoskeletal: reports: Joint Pain (left knee chronic pain and swelling), Muscle Pain (bodyaches) Integumentary: reports: Dryness Neuro: reports: No Symptoms reported Endocrine: reports: See HPI Psychiatric: reports: Agitated, Anxious, Disorientated Patient History - Patient Medical History Hx Anemia: No Hx Asthma: No Hx Chronic Obstructive Pulmonary Disease (COPD): No Hx Cancer: No Hx Cardiac Disorders: No Hx Congestive Heart Failure: No Hx Hypertension: No Hx Hypercholesterolemia: No Hx Pacemaker: No HX Cerebrovascular Accident: No Hx Seizures: No Hx Dementia: No Hx Diabetes: No Hx Gastrointestinal Disorders: No Hx Liver Disease: No Hx Genitourinary Disorders: No Hx Sexually Transmitted Disorders: No Hx Renal Disease (ESRD): No Hx Thyroid Disease: No Hx Human Immunodeficiency Virus (HIV): No (Negative June 2018) Hx Hepatitis C: No Hx Depression: Yes (Not on medication) Hx Suicide Attempt: No Hx Bipolar Disorder: No Hx Schizophrenia: No - Patient Surgical History Past Surgical History: Yes Hx Neurologic Surgery: No Hx Cataract Extraction: No Hx Cardiac Surgery: No Hx Lung Surgery: No Hx Breast Surgery: No Hx Breast Biopsy: No Hx Abdominal Surgery: No Hx Appendectomy: No Hx Cholecystectomy: No Hx Genitourinary Surgery: No Hx Section: No Hx Orthopedic Surgery: Yes (LEFT KNEE SURGERY 1984) Anesthesia Reaction: No - PPD History Results: 07/09/18NEG CXR - Smoking Cessation Smoking history: Current some day smoker Have you smoked in the past 12 months: Yes Aproximately how many cigarettes per day: 5 Cigars Per Day: 0 Hx Chewing Tobacco Use: No Initiated information on smoking cessation: No Admission Physical Exam BHS - Physical General Appearance: Yes: Disheveled, Mild Distress, Intoxicated, Anxious HEENTM: Yes: EOMI, Hearing grossly Normal, Normocephalic, Normal Voice, Other ( poor dentition , many missing teeth) Respiratory: Yes: Lungs Clear, Normal Breath Sounds, No Respiratory Distress, No Accessory Muscle Use Neck: Yes: No masses,lesions,Nodules, Trachea in good position Cardiology: Yes: Regular Rhythm, Regular Rate, S1, S2 Abdominal: Yes: Non Tender, Soft Back: Yes: Normal Inspection Musculoskeletal: Yes: Back pain, Joint Stiffness, Joint swelling (left knee), Other (unsteady gait) Extremities: Yes: Non-Tender Neurological: Yes: Alert, Motor Strength 5/5, Normal Mood/Affect Integumentary: Yes: Dry, Warm - Diagnostic (1) Alcohol intoxication Current Visit: Yes Status: Chronic Qualifiers: Complication of substance-induced condition: uncomplicated Qualified Code(s ): F10.920 - Alcohol use, unspecified with intoxication, uncomplicated (2) cannabis dependence Current Visit: Yes Status: Chronic (3) Nicotine dependence Current Visit: Yes Status: Chronic Qualifiers: Nicotine product type: cigarettes Substance use status: uncomplicated Qualified Code(s): F17.210 - Nicotine dependence, cigarettes, uncomplicated Breathalyzer - Breathalyzer Breathalyzer: 0.200 Urine Drug Screen - Test Device Lot number: [id number] Expiration date: 05/12/21 - Control Is test valid?: Yes - Results Drug screen NEGATIVE: No Urine drug screen results: THC-Marijuana Inpatient Rehab Admission - Rehab Decision to Admit Inpatient rehab admission?: No
[2019-07-30] MEDS ORDERED: BISMUTH SUBSALICYLATE 524 MG/30 ML UD PO PRN (17:39)
[2019-07-30] MEDS ORDERED: hydrOXYzine PAMOATE 25 MG CAPSULE (FP) PO PRN (17:39)
[2019-07-30] MEDS ORDERED: MENTHOL/PHENOL 1 EACH UD MM PRN (17:39)
[2019-07-30] MEDS ORDERED: MELATONIN 5 MG TABLETS PO PRN (17:39)
[2019-07-30] MEDS ORDERED: MAG HYDROX/AL HYDROX/SIMETH 30 ML UNIT-DOSE CUP PO PRN (17:39)
[2019-07-30] MEDS ORDERED: ACETAMINOPHEN 325 MG TABLET (FP) PO PRN (17:39)
[2019-07-30] MEDS ORDERED: MAGNESIUM CITRATE 300 ML BOTTLE PO PRN (17:39)
[2019-07-30] MEDS ORDERED: MAGNESIUM HYDROX 2400MG/30ML ORAL SUSPENSION 30 ML CUP PO PRN (17:39)
[2019-07-30 18:31] VITALS: BMI 22.2
[2019-07-30] MEDS: diazePAM 5 MG TABLET PO PRN (19:00)
[2019-07-30] MEDS: ACETAMINOPHEN 325 MG TABLET (FP) PO PRN (19:01)
[2019-07-30] MEDS: IBUPROFEN 400 MG TABLET (FP) PO PRN (22:19)
[2019-07-30] MEDS: THIAMINE HCL 100 MG TABLET (FP) PO SCH (22:19)
[2019-07-30] MEDS: diazePAM 5 MG TABLET PO SCH (22:19)
[2019-07-31] MEDS: diazePAM 5 MG TABLET PO SCH ×3 (06:18→22:20)
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
--- NOTE | 2019-07-31 10:21 | PN ---
[facility] CIWA - CIWA Score Nausea/Vomitin Muscle Tremors: 3 Anxiety: 2 Agitation: 2 Paroxysmal Sweats: No Perspiration Orientation: 0-Oriented Tacttile Disturbances: 1-Very Mild Itch/Numbness Auditory Disturbances: 0-None Visual Disturbances: 0-None Headache: 1-Very Mild CIWA-Ar Total Score: 11 BHS Progress Note (SOAP) Subjective: alert,irritable,anxious,interrupted sleep,tremor Objective: 07/31/19 10:20 Vital Signs Temperature 97.9 F 07/31/19 08:46 Pulse Rate 72 07/31/19 08:46 Respiratory Rate 19 07/31/19 08:46 Blood Pressure 154/75 07/31/19 08:46 O2 Sat by Pulse Oximetry (%) 07/31/19 10:20 labs pending Assessment: 07/31/19 10:20 withdrawal symptom Plan: continue detox valium regimen
[2019-07-31] MEDS: PRENATAL VITAMINS W/ FOLIC ACID TABLET (FP) PO SCH (10:23)
[2019-07-31 12:42] LABS: HEMATOCRIT 38.9 % (35.4-49); HEMOGLOBIN 12.9 GM/dL (11.7-16.9); MCH 29.5 pg (25.7-33.7); MCHC 33.1 g/dl (32.0-35.9); MEAN CELL VOLUME 89.2 fl (80-96); MEAN PLT VOLUME 9.4 fl (7.5-11.1); PLATELET COUNT 241 K/MM3 (134-434); RBC 4.36 M/mm3 (4.00-5.60); RDW 14.5 % (11.9-15.9); WHITE BLOOD COUNT 5.1 K/mm3 (4.0-10.0)
[2019-07-31 12:54] LABS: ALBUMIN 3.3 g/dl (3.4-5.0); BILIRUBIN,TOTAL 0.7 mg/dL (0.2-1); BLOOD UREA NITROGEN 9.1 mg/dL (7-18); CALCIUM 9.5 mg/dL (8.5-10.1); CREATININE 0.8 mg/dL (0.55-1.3); POTASSIUM 4.7 mmol/L (3.5-5.1); TOT PROT 7.2 g/dl (6.4-8.2)
[2019-07-31] MEDS ORDERED: SUVOREXANT 10 MG TABLET PO PRN (22:00)
[2019-07-31] MEDS: OLANZapine 10 MG TABLET PO SCH (22:20)
[2019-07-31] MEDS: THIAMINE HCL 100 MG TABLET (FP) PO SCH (22:20)
[2019-07-31] MEDS: IBUPROFEN 400 MG TABLET (FP) PO PRN (22:23)
[2019-08-01] MEDS: diazePAM 5 MG TABLET PO SCH ×2 (05:17→17:33)
[2019-08-01] MEDS: PRENATAL VITAMINS W/ FOLIC ACID TABLET (FP) PO SCH (10:26)
[2019-08-01] MEDS: diazePAM 5 MG TABLET PO PRN (10:29)
--- NOTE | 2019-08-01 10:38 | PN ---
[facility] Progress Note Note: Patient is scheduled for discharge tomorrow. Script for 30 days supply of Zyprexa 10 mg/hs will be electronically transmitted to [facility] at [address] [place] [address]
--- NOTE | 2019-08-01 11:36 | PN ---
[facility] CIWA - CIWA Score Nausea/Vomitin-Mild Nausea/No Vomiting Muscle Tremors: 1-None Visible, but [place] Anxiety: 1-Mildly Anxious Agitation: 1-Slight > Activity Paroxysmal Sweats: No Perspiration Orientation: 0-Oriented Tacttile Disturbances: 0-None Auditory Disturbances: 0-None Visual Disturbances: 0-None Headache: 1-Very Mild CIWA-Ar Total Score: 5 BHS Progress Note (SOAP) Subjective: alert,irritable,anxious,interrupted sleep,pain in the left knee Objective: 08/01/19 11:34 Vital Signs Temperature 98.2 F 08/01/19 08:42 Pulse Rate 74 08/01/19 08:42 Respiratory Rate 17 08/01/19 08:42 Blood Pressure 147/90 08/01/19 08:42 O2 Sat by Pulse Oximetry (%) Assessment: 08/01/19 11:34 withdrawal symptom Plan: continue detox valium regimen,bengay left knee bid,discharge in am
[2019-08-01] MEDS: METHYL SALICYLATE/MENTHOL OINT 30 GM TUBE TP SCH ×2 (13:26→22:28)
[2019-08-01] MEDS: ACETAMINOPHEN 325 MG TABLET (FP) PO PRN (17:34)
[2019-08-01] MEDS: OLANZapine 10 MG TABLET PO SCH (22:18)
[2019-08-01] MEDS: IBUPROFEN 400 MG TABLET (FP) PO PRN (22:18)
[2019-08-01] MEDS: THIAMINE HCL 100 MG TABLET (FP) PO SCH (22:18)
[2019-08-02] MEDS ORDERED: diazePAM 5 MG TABLET PO ONE (06:00)
--- NOTE | 2019-08-02 08:28 | PN ---
[facility] CIWA - CIWA Score Nausea/Vomitin-No Nausea/No Vomiting Muscle Tremors: None Anxiety: 1-Mildly Anxious Agitation: 0-Normal Activity Paroxysmal Sweats: No Perspiration Orientation: 0-Oriented Tacttile Disturbances: 0-None Auditory Disturbances: 0-None Visual Disturbances: 0-None Headache: 0-None Present CIWA-Ar Total Score: 1 S Progress Note (SOAP) Subjective: alert,no complaint Objective: 08/02/19 08:27 Vital Signs Temperature 97.7 F 08/02/19 05:30 Pulse Rate 50 L 08/02/19 05:30 Respiratory Rate 18 08/02/19 05:30 Blood Pressure 130/59 L 08/02/19 05:30 O2 Sat by Pulse Oximetry (%) Assessment: 08/02/19 08:27 detox completed,no withdrawal symptom Plan: discharge today,follow up with after care program as arrangement
--- NOTE | 2019-08-02 08:39 | DS ---
[facility] Detox Discharge Summary Admission Date: 07/30/19 Discharge Date: 08/02/19 - History Present History: Alcohol Dependence Additional Comments: alert,oriented x 3 heart normal heart sound lung clear no wheezing no abdominal pain ambulation on the unit without difficulty stable for discharge follow up with after care program as arrangement discharge time spending 35 mins Pertinent Past History: nicotine dependence schizoaffective disorder old injury to left knee - Physical Exam Results Vital Signs: Vital Signs Temperature 97.7 F 08/02/19 05:30 Pulse Rate 50 L 08/02/19 05:30 Respiratory Rate 18 08/02/19 05:30 Blood Pressure 130/59 L 08/02/19 05:30 O2 Sat by Pulse Oximetry (%) Pertinent Admission Physical Exam Findings: withdrawal signs and symptom Laboratory Last Values WBC 5.1 K/mm3 (4.0-10.0) 07/31/19 08:18 RBC 4.36 M/mm3 (4.00-5.60) 07/31/19 08:18 Hgb 12.9 GM/dL (11.7-16.9) 07/31/19 08:18 Hct 38.9 % (35.4-49) 07/31/19 08:18 MCV 89.2 fl (80-96) 07/31/19 08:18 MCH 29.5 pg (25.7-33.7) 07/31/19 08:18 MCHC 33.1 g/dl (32.0-35.9) 07/31/19 08:18 RDW 14.5 % (11.9-15.9) 07/31/19 08:18 Plt Count 241 K/MM3 (134-434) D 07/31/19 08:18 MPV 9.4 fl (7.5-11.1) D 07/31/19 08:18 Sodium 138 mmol/L (136-145) 07/31/19 08:18 Potassium 4.7 mmol/L (3.5-5.1) 07/31/19 08:18 Chloride 103 mmol/L (98-107) 07/31/19 08:18 Carbon Dioxide 30 mmol/L (21-32) 07/31/19 08:18 Anion Gap 4 MMOL/L (8-16) L 07/31/19 08:18 BUN 9.1 mg/dL (7-18) 07/31/19 08:18 Creatinine 0.8 mg/dL (0.55-1.3) 07/31/19 08:18 Est GFR (CKD-EPI)AfAm 113.33 07/31/19 08:18 Est GFR (CKD-EPI)NonAf 97.78 07/31/19 08:18 Random Glucose 85 mg/dL (74-106) 07/31/19 08:18 Calcium 9.5 mg/dL (8.5-10.1) 07/31/19 08:18 Total Bilirubin 0.7 mg/dL (0.2-1) 07/31/19 08:18 AST 24 U/L (15-37) 07/31/19 08:18 ALT 21 U/L (13-61) 07/31/19 08:18 Alkaline Phosphatase 83 U/L (45-117) 07/31/19 08:18 Total Protein 7.2 g/dl (6.4-8.2) 07/31/19 08:18 Albumin 3.3 g/dl (3.4-5.0) L 07/31/19 08:18 RPR Titer Nonreactive (NONREACTIVE) 07/31/19 08:18 Laboratory Last Values WBC 5.1 K/mm3 (4.0-10.0) 07/31/19 08:18 RBC 4.36 M/mm3 (4.00-5.60) 07/31/19 08:18 Hgb 12.9 GM/dL (11.7-16.9) 07/31/19 08:18 Hct 38.9 % (35.4-49) 07/31/19 08:18 MCV 89.2 fl (80-96) 07/31/19 08:18 MCH 29.5 pg (25.7-33.7) 07/31/19 08:18 MCHC 33.1 g/dl (32.0-35.9) 07/31/19 08:18 RDW 14.5 % (11.9-15.9) 07/31/19 08:18 Plt Count 241 K/MM3 (134-434) D 07/31/19 08:18 MPV 9.4 fl (7.5-11.1) D 07/31/19 08:18 Sodium 138 mmol/L (136-145) 07/31/19 08:18 Potassium 4.7 mmol/L (3.5-5.1) 07/31/19 08:18 Chloride 103 mmol/L (98-107) 07/31/19 08:18 Carbon Dioxide 30 mmol/L (21-32) 07/31/19 08:18 Anion Gap 4 MMOL/L (8-16) L 07/31/19 08:18 BUN 9.1 mg/dL (7-18) 07/31/19 08:18 Creatinine 0.8 mg/dL (0.55-1.3) 07/31/19 08:18 Est GFR (CKD-EPI)AfAm 113.33 07/31/19 08:18 Est GFR (CKD-EPI)NonAf 97.78 07/31/19 08:18 Random Glucose 85 mg/dL (74-106) 07/31/19 08:18 Calcium 9.5 mg/dL (8.5-10.1) 07/31/19 08:18 Total Bilirubin 0.7 mg/dL (0.2-1) 07/31/19 08:18 AST 24 U/L (15-37) 07/31/19 08:18 ALT 21 U/L (13-61) 07/31/19 08:18 Alkaline Phosphatase 83 U/L (45-117) 07/31/19 08:18 Total Protein 7.2 g/dl (6.4-8.2) 07/31/19 08:18 Albumin 3.3 g/dl (3.4-5.0) L 07/31/19 08:18 RPR Titer Nonreactive (NONREACTIVE) 07/31/19 08:18 Vital Signs Temperature 97.7 F 08/02/19 05:30 Pulse Rate 50 L 08/02/19 05:30 Respiratory Rate 18 08/02/19 05:30 Blood Pressure 130/59 L 08/02/19 05:30 O2 Sat by Pulse Oximetry (%) - Treatment Hospital Course: Detox Protocol Followed, Detoxed Safely, Responded well, Discharged Condition Good Patient has Accepted a Rehab Referral to: declined rehab - Medication Discharge Medications: Ambulatory Orders Gabapentin [Neurontin] 300 mg PO BID #28 capsule 01/10/19 Olanzapine [ZyPREXA -] 10 mg PO HS #30 tablet 08/01/19 - Diagnosis (1) Nicotine dependence Current Visit: Yes Status: Chronic Qualifiers: Nicotine product type: cigarettes Substance use status: uncomplicated Qualified Code(s): F17.210 - Nicotine dependence, cigarettes, uncomplicated (2) Alcohol dependence with uncomplicated withdrawal Current Visit: No Status: Acute (3) Syncope Current Visit: No Status: Acute (4) Weight decreased Current Visit: No Status: Acute (5) Schizoaffective disorder Current Visit: No Status: Chronic - AMA Did Patient Leave Against Medical Advice: No
[2019-08-02] MEDS: PRENATAL VITAMINS W/ FOLIC ACID TABLET (FP) PO SCH (09:11)
[2019-08-02] MEDS: METHYL SALICYLATE/MENTHOL OINT 30 GM TUBE TP SCH (09:12)
[2019-08-02 10:14] VITALS: BP 133/82; PULSE 64; TEMP 98.5
== END 2019-08-02 09:35 | disposition home or self-care (01) | DRG 775 ==
LOC: YASAS 15:37 → Y6N 18:32
PROVIDERS: ADMIT Allergy & Immunology; ATTEND Allergy & Immunology
PROC: HZ2ZZZZ Detoxification Services for Substance Abuse Treatment (ICD-10-PCS; principal; 2019-07-30)
DX: F10.230 Alcohol dependence with withdrawal, uncomplicated (principal); F12.20 Cannabis dependence, uncomplicated; F17.210 Nicotine dependence, cigarettes, uncomplicated; F19.282 Other psychoactive substance dependence with psychoactive substance-induced sleep disorder; F25.9 Schizoaffective disorder, unspecified; F31.9 Bipolar disorder, unspecified; M12.9 Arthropathy, unspecified; M10.9 Gout, unspecified; H91.90 Unspecified hearing loss, unspecified ear; M54.89 Other dorsalgia; R55 Syncope and collapse; R63.4 Abnormal weight loss; Z68.22 Body mass index [BMI] 22.0-22.9, adult; Z86.2 Personal history of diseases of the blood and blood-forming organs and certain disorders involving the immune mechanism
CPT/HCPCS: 36415; 80053; 85027; 86593

== ENCOUNTER 2019-08-07 21:38 | Inpatient (IN) | payer OTHER ==
--- NOTE | 2019-08-07 22:11 | BHS.RME ---
Substance Use & Tx History - Last Treatment Where was last treatment: Detox CIWA Nausea/Vomitin-No Nausea/No Vomiting Muscle Tremors: 3 Anxiety: 3 Agitation: 3 Paroxysmal Sweats: 2 Orientation: 2-Disoriented Date<2 days Tacttile Disturbances: 0-None Auditory Disturbances: 0-None Visual Disturbances: 0-None Headache: 0-None Present CIWA-Ar Total Score: 13
[2019-08-07 23:11] VITALS: BMI 23.2
--- NOTE | 2019-08-07 23:34 | HP ---
CIWA Score Nausea/Vomitin Muscle Tremors: 1-None Visible, but [place] Anxiety: 3 Agitation: 3 Paroxysmal Sweats: 2 Orientation: 1-Uncertain about Date Tacttile Disturbances: 0-None Auditory Disturbances: 0-None Visual Disturbances: 0-None Headache: 0-None Present CIWA-Ar Total Score: 12 - Admission Criteria OASAS Guidelines: Admission for Medically Managed Detox: Requires at least one of the followin. CIWA greater than 12 2. Seizures within the past 24 hours 3. Delirium tremens within the past 24 hours 4. Hallucinations within the past 24 hours 5. Acute intervention needed for co occurring medical disorder 6. Acute intervention needed for co occurring psychiatric disorder 7. Severe withdrawal that cannot be handled at a lower level of care (continued vomiting, continued diarrhea, abnormal vital signs) requiring intravenous medication and/or fluids 8. Admitting History and Physical - Past Medical History Infectious Disease: Yes: Other (positive ppd treated) Psych: Yes: Depression - Smoking History Smoking history: Current some day smoker Have you smoked in the past 12 months: Yes Aproximately how many cigarettes per day: 6 - Alcohol/Substance Use Hx Alcohol Use: Yes Number of Drinks Daily: 8 - Social History ADL: Independent History of Recent Travel: No Admission ROS S - HPI Allergies/Adverse Reactions: Allergies Allergy/AdvReac Type Severity Reaction Status Date / Time No Known Allergies Allergy Verified 08/07/19 23:05 History of Present Illness: 59 y.o. male pt here requesting detox from etoh use , reports 12x 24 oz beers/ day , and 1/2 pint /week liquor, previous detox at this facility 1 week ago , relapsed on day of d/c , latest use today , current JON 0.159 . pmhx : borderline dm , gout , left knee surgery 1985 2/2 basketball injury psych : denies Exam Limitations: Clinical Condition, Intoxication - Review of Systems Constitutional: Loss of Appetite EENT: reports: No Symptoms Reported Respiratory: reports: No Symptoms reported Cardiac: reports: No Symptoms Reported GI: reports: Nausea, Poor Appetite : reports: No Symptoms Reported Musculoskeletal: reports: Muscle Pain Integumentary: reports: No Symptoms Reported Neuro: reports: See HPI Endocrine: reports: See HPI Psychiatric: reports: Agitated, Anxious, Disorientated Patient History - Patient Medical History Hx Anemia: No Hx Asthma: No Hx Chronic Obstructive Pulmonary Disease (COPD): No Hx Cancer: No Hx Cardiac Disorders: No Hx Congestive Heart Failure: No Hx Hypertension: No Hx Hypercholesterolemia: No Hx Pacemaker: No HX Cerebrovascular Accident: No Hx Seizures: No Hx Dementia: No Hx Diabetes: No Hx Gastrointestinal Disorders: No Hx Liver Disease: No Hx Genitourinary Disorders: No Hx Sexually Transmitted Disorders: No Hx Renal Disease (ESRD): No Hx Thyroid Disease: No Hx Human Immunodeficiency Virus (HIV): No (Negative June 2018) Hx Hepatitis C: No Hx Depression: Yes (Not on medication) Hx Suicide Attempt: No Hx Bipolar Disorder: No Hx Schizophrenia: No - Patient Surgical History Past Surgical History: Yes Hx Neurologic Surgery: No Hx Cataract Extraction: No Hx Cardiac Surgery: No Hx Lung Surgery: No Hx Breast Surgery: No Hx Breast Biopsy: No Hx Abdominal Surgery: No Hx Appendectomy: No Hx Cholecystectomy: No Hx Genitourinary Surgery: No Hx Section: No Hx Orthopedic Surgery: Yes (LEFT KNEE SURGERY 1984) Anesthesia Reaction: No - PPD History Previous Implant?: Yes Results: 07/09/18NEG CXR - Smoking Cessation Smoking history: Current some day smoker Have you smoked in the past 12 months: Yes Aproximately how many cigarettes per day: 6 Cigars Per Day: 1 Hx Chewing Tobacco Use: No Initiated information on smoking cessation: Yes 'Breaking Loose' booklet given: 08/07/19 - Substances abused Alcohol Substance route: Oral Frequency: Daily Amount used: 1 1/2 pint of vodka, 1x 6-pk beer Age of first use: 11 Date of last use: 08/07/19 Marijuana/Hashish Substance route: Smoking Frequency: Daily Amount used: 1/2 blunt Age of first use: 7 Date of last use: 08/07/19 Admission Physical Exam BHS - Vital Signs Vital Signs: Vital Signs - 24 hr 08/07/19 23:06 Temperature 97.3 F L Pulse Rate 95 H Respiratory 20 Rate Blood Pressure 137/77 - Physical General Appearance: Yes: Mild Distress, Moderate Distress, Intoxicated, Irritable, Anxious HEENTM: Yes: EOMI, Hearing grossly Normal, Normocephalic, Normal Voice, Other ( many missing teeth) Respiratory: Yes: Chest Non-Tender, Lungs Clear, Normal Breath Sounds, No Respiratory Distress, No Accessory Muscle Use Neck: Yes: No masses,lesions,Nodules, Trachea in good position Cardiology: Yes: Regular Rhythm, Regular Rate, S1, S2 Abdominal: Yes: Non Tender, Soft Musculoskeletal: Yes: Joint Stiffness (left knee), Joint swelling (left knee), Other (unsteady gait) Extremities: Yes: Normal Range of Motion, Non-Tender Integumentary: Yes: Warm - Diagnostic (1) Alcohol dependence with uncomplicated withdrawal Current Visit: Yes Status: Chronic (2) cannabis dependence Current Visit: Yes Status: Chronic (3) Nicotine dependence Current Visit: Yes Status: Chronic Qualifiers: Nicotine product type: cigarettes Substance use status: uncomplicated Qualified Code(s): F17.210 - Nicotine dependence, cigarettes, uncomplicated Breathalyzer - Breathalyzer Breathalyzer: 0.159 Urine Drug Screen - Test Device Lot number: [id number] Expiration date: 05/12/21 - Control Is test valid?: Yes - Results Drug screen NEGATIVE: No Urine drug screen results: THC-Marijuana, BZO-Benzodiazepines Inpatient Rehab Admission - Rehab Decision to Admit Inpatient rehab admission?: No
[2019-08-07] MEDS ORDERED: MAGNESIUM HYDROX 2400MG/30ML ORAL SUSPENSION 30 ML CUP PO PRN (23:40)
[2019-08-07] MEDS ORDERED: MAG HYDROX/AL HYDROX/SIMETH 30 ML UNIT-DOSE CUP PO PRN (23:40)
[2019-08-07] MEDS ORDERED: IBUPROFEN 400 MG TABLET (FP) PO PRN (23:40)
[2019-08-07] MEDS ORDERED: MAGNESIUM CITRATE 300 ML BOTTLE PO PRN (23:40)
[2019-08-07] MEDS ORDERED: BISMUTH SUBSALICYLATE 524 MG/30 ML UD PO PRN (23:40)
[2019-08-07] MEDS ORDERED: MENTHOL/PHENOL 1 EACH UD MM PRN (23:40)
[2019-08-07] MEDS ORDERED: ACETAMINOPHEN 325 MG TABLET (FP) PO PRN (23:40)
[2019-08-07] MEDS ORDERED: MAGNESIUM SULFATE 16 OZ CRYSTALS TP ONE (23:43)
[2019-08-08] MEDS: METHYL SALICYLATE/MENTHOL OINT 30 GM TUBE TP SCH ×3 (00:21→22:07)
[2019-08-08] MEDS: hydrOXYzine PAMOATE 25 MG CAPSULE (FP) PO PRN (00:46)
[2019-08-08] MEDS: MELATONIN 5 MG TABLETS PO PRN (00:46)
[2019-08-08] MEDS ORDERED: chlordiazePOXIDE HCL 25 MG CAPSULE PO PRN (07:04)
[2019-08-08] MEDS: PRENATAL VITAMINS W/ FOLIC ACID TABLET (FP) PO SCH (10:07)
[2019-08-08] MEDS: chlordiazePOXIDE HCL 25 MG CAPSULE PO SCH ×3 (10:08→22:07)
--- NOTE | 2019-08-08 11:17 | PN ---
BHS CIWA - CIWA Score Nausea/Vomitin-Mild Nausea/No Vomiting Muscle Tremors: 2 Anxiety: 1-Mildly Anxious Agitation: 1-Slight > Activity Paroxysmal Sweats: 2 Orientation: 0-Oriented Tacttile Disturbances: 1-Very Mild Itch/Numbness Auditory Disturbances: 0-None Visual Disturbances: 0-None Headache: 0-None Present CIWA-Ar Total Score: 8 BHS Progress Note (SOAP) Subjective: interrupted sleep, sweats decreased appetite Objective: 08/08/19 11:14 Vital Signs Temperature 98.1 F 08/08/19 08:22 Pulse Rate 81 08/08/19 08:22 Respiratory Rate 20 08/08/19 08:22 Blood Pressure 158/93 08/08/19 10:53 O2 Sat by Pulse Oximetry (%) labs pending pt aox3 in nad ambulating Assessment: 08/08/19 11:15 withdrawal sx's Plan: cont. detox increase fluids ensure bid elisabeth bandage as ordered f/up pending labs
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
[2019-08-08] MEDS: OLANZapine 10 MG TABLET PO SCH (22:07)
[2019-08-08] MEDS: SUVOREXANT 10 MG TABLET PO PRN (22:07)
[2019-08-08] MEDS: THIAMINE HCL 100 MG TABLET (FP) PO SCH (22:07)
[2019-08-09] MEDS: chlordiazePOXIDE HCL 25 MG CAPSULE PO SCH ×4 (06:08→22:06)
[2019-08-09] MEDS: PRENATAL VITAMINS W/ FOLIC ACID TABLET (FP) PO SCH (10:13)
[2019-08-09] MEDS: METHYL SALICYLATE/MENTHOL OINT 30 GM TUBE TP SCH ×2 (10:14→22:08)
--- NOTE | 2019-08-09 10:41 | PN ---
BHS CIWA - CIWA Score Nausea/Vomitin-Mild Nausea/No Vomiting Muscle Tremors: 2 Anxiety: 2 Agitation: 2 Paroxysmal Sweats: 1-Minimal Palms Moist Orientation: 0-Oriented Tacttile Disturbances: 0-None Auditory Disturbances: 0-None Visual Disturbances: 0-None Headache: 1-Very Mild CIWA-Ar Total Score: 9 BHS Progress Note (SOAP) Subjective: admitted for alcohol detox. Wants ensure. O: Vital Signs - 24 hr 08/08/19 08/08/19 08/08/19 10:53 12:24 16:55 Temperature 98.1 F 98.2 F Pulse Rate 69 72 Respiratory 18 16 Rate Blood Pressure 158/93 182/92 H 151/81 08/08/19 08/09/19 08/09/19 22:53 00:30 03:30 Temperature 98.4 F Pulse Rate 62 Respiratory 18 18 17 Rate Blood Pressure 140/79 08/09/19 08/09/19 06:05 07:06 Temperature 97.7 F 97.7 F Pulse Rate 61 61 Respiratory 17 17 Rate Blood Pressure 138/76 138/76 labs pending a/p: Continue alcohol detox protocol- requesting ensure
--- NOTE | 2019-08-09 13:06 | PN ---
BHS Progress Note Note: history of old injury left knee,will obtain elisabeth badge left knee in daytime
[2019-08-09] MEDS: OLANZapine 10 MG TABLET PO SCH (22:06)
[2019-08-09] MEDS: SUVOREXANT 10 MG TABLET PO PRN (22:07)
[2019-08-09] MEDS: THIAMINE HCL 100 MG TABLET (FP) PO SCH (22:08)
[2019-08-10] MEDS: MELATONIN 5 MG TABLETS PO PRN (01:49)
[2019-08-10] MEDS: chlordiazePOXIDE HCL 25 MG CAPSULE PO SCH ×4 (05:31→22:24)
[2019-08-10] MEDS: METHYL SALICYLATE/MENTHOL OINT 30 GM TUBE TP SCH ×2 (10:07→22:24)
[2019-08-10] MEDS: ACETAMINOPHEN 325 MG TABLET (FP) PO PRN ×3 (10:08→22:27)
[2019-08-10] MEDS: PRENATAL VITAMINS W/ FOLIC ACID TABLET (FP) PO SCH (10:08)
[2019-08-10] MEDS ORDERED: COLLOIDAL OATMEAL 1 BAR EACH TP PRN (11:01)
--- NOTE | 2019-08-10 11:05 | PN ---
S CIWA - CIWA Score Nausea/Vomitin-No Nausea/No Vomiting Muscle Tremors: 1-None Visible, but [place] Anxiety: 1-Mildly Anxious Agitation: 1-Slight > Activity Paroxysmal Sweats: 2 Orientation: 0-Oriented Tacttile Disturbances: 1-Very Mild Itch/Numbness Auditory Disturbances: 0-None Visual Disturbances: 0-None Headache: 0-None Present CIWA-Ar Total Score: 6 BHS Progress Note (SOAP) Subjective: inmterrupted sleep , waiting for elisabeth bandage Objective: 08/10/19 11:05 Vital Signs Temperature 96.4 F L 08/10/19 08:36 Pulse Rate 79 08/10/19 08:36 Respiratory Rate 18 08/10/19 08:36 Blood Pressure 142/92 08/10/19 08:36 O2 Sat by Pulse Oximetry (%) p 08/10/19 11:06 pt aox3 in nad ambulating Assessment: 08/10/19 11:06 withdrawwal sx's Plan: cont. detox increase fluids elisabeth bandage
[2019-08-10] MEDS: OLANZapine 10 MG TABLET PO SCH (22:24)
[2019-08-10] MEDS: THIAMINE HCL 100 MG TABLET (FP) PO SCH (22:24)
[2019-08-10] MEDS: SUVOREXANT 10 MG TABLET PO PRN (22:26)
[2019-08-11] MEDS ORDERED: chlordiazePOXIDE HCL 10 MG CAPSULE PO PRN
[2019-08-11] MEDS: chlordiazePOXIDE HCL 10 MG CAPSULE PO SCH ×4 (05:46→22:17)
[2019-08-11] MEDS: METHYL SALICYLATE/MENTHOL OINT 30 GM TUBE TP SCH ×2 (10:43→22:19)
[2019-08-11] MEDS: PRENATAL VITAMINS W/ FOLIC ACID TABLET (FP) PO SCH (10:44)
[2019-08-11] MEDS: hydrOXYzine PAMOATE 25 MG CAPSULE (FP) PO PRN ×2 (10:47→17:26)
[2019-08-11] MEDS: ACETAMINOPHEN 325 MG TABLET (FP) PO PRN (17:27)
--- NOTE | 2019-08-11 17:42 | PN ---
S CIWA - CIWA Score Nausea/Vomitin-No Nausea/No Vomiting Muscle Tremors: None Anxiety: 3 Agitation: 2 Paroxysmal Sweats: No Perspiration Orientation: 0-Oriented Tacttile Disturbances: 1-Very Mild Itch/Numbness Auditory Disturbances: 0-None Visual Disturbances: 0-None Headache: 0-None Present CIWA-Ar Total Score: 6 BHS Progress Note (SOAP) Subjective: Anxious, Restless, Body Aches. Patient reports That Current withdrawal Detox Symptoms in General Are Subsiding in Severity. Objective: PATIENT A & O X 3, OBSERVED AMBULATING ON DETOX UNIT UNASSISTED. IN NO ACUTE DISTRESS. 08/11/19 17:39 Vital Signs Temperature 97.7 F 08/11/19 11:21 Pulse Rate 90 08/11/19 11:21 Respiratory Rate 16 08/11/19 11:21 Blood Pressure 151/87 08/11/19 11:21 O2 Sat by Pulse Oximetry (%) RESULTS OF LABS DRAWN ON PREVIOUS ADMISSION ON 07/31/2019 NOTED. 08/11/19 17:41 Assessment: 08/11/19 17:41 WITHDRAWAL SYMPTOMS. Plan: CONTINUE DETOX.
[2019-08-11] MEDS: OLANZapine 10 MG TABLET PO SCH (22:17)
[2019-08-11] MEDS: THIAMINE HCL 100 MG TABLET (FP) PO SCH (22:18)
[2019-08-11] MEDS: MELATONIN 5 MG TABLETS PO PRN (22:18)
[2019-08-12] MEDS: chlordiazePOXIDE HCL 10 MG CAPSULE PO SCH ×2 (05:44→18:39)
[2019-08-12] MEDS: ACETAMINOPHEN 325 MG TABLET (FP) PO PRN ×2 (05:44→18:40)
[2019-08-12] MEDS: METHYL SALICYLATE/MENTHOL OINT 30 GM TUBE TP SCH ×2 (10:12→22:15)
[2019-08-12] MEDS: PRENATAL VITAMINS W/ FOLIC ACID TABLET (FP) PO SCH (10:12)
--- NOTE | 2019-08-12 14:54 | PN ---
BHS CIWA - CIWA Score Nausea/Vomitin-No Nausea/No Vomiting Muscle Tremors: None Anxiety: 2 Agitation: 2 Paroxysmal Sweats: No Perspiration Orientation: 0-Oriented Tacttile Disturbances: 0-None Auditory Disturbances: 0-None Visual Disturbances: 0-None Headache: 0-None Present CIWA-Ar Total Score: 4 BHS Progress Note (SOAP) Subjective: Sweating; patient requesting more ensure. Patient aware will only receive glucerna due to hyperglycemia (stated he is prediabetic) Objective: 08/12/19 14:54 Last Vital Signs Temp Pulse Resp BP Pulse Ox 97.7 F 63 16 157/84 08/12/19 12:35 08/12/19 12:35 08/12/19 12:35 08/12/19 12:35 Elevated b/p, has htn, on med Labs reviewed Assessment: 08/12/19 14:55 Withdrawal sxs Hyperglycemia noted Plan: Continue detox Encouraged PO water intake Scheduled for discharge tomorrow Hyperglycemia due to prediabetes: educated on decreasing sugary/starchy intake in diet and exercising to maintain healthy weight, change ensure to glucerna TID ; Follow up with PCP post discharge for management
[2019-08-12] MEDS: OLANZapine 10 MG TABLET PO SCH (22:14)
[2019-08-12] MEDS: THIAMINE HCL 100 MG TABLET (FP) PO SCH (22:14)
[2019-08-13] MEDS ORDERED: chlordiazePOXIDE HCL 10 MG CAPSULE PO ONE (05:00)
[2019-08-13] MEDS: ACETAMINOPHEN 325 MG TABLET (FP) PO PRN (06:18)
[2019-08-13 08:26] VITALS: BP 127/83; PULSE 68; TEMP 97.2
--- NOTE | 2019-08-13 09:22 | PN ---
[facility] Progress Note Note: is discharged today. Script for 30 days sypply of Zyprexa 10 mg/hs is electronically transmitted to [facility] at [address] [place], [place] [id number]
--- NOTE | 2019-08-13 09:35 | DS ---
[facility] Detox Discharge Summary Admission Date: 08/07/19 Discharge Date: 08/13/19 - History Present History: Alcohol Dependence, Cocaine Dependence, Opioid Dependence - Physical Exam Results Vital Signs: Vital Signs Temperature 97.2 F L 08/13/19 05:42 Pulse Rate 68 08/13/19 05:42 Respiratory Rate 18 08/13/19 05:42 Blood Pressure 127/83 08/13/19 05:42 O2 Sat by Pulse Oximetry (%) Pertinent Admission Physical Exam Findings: Vital Signs Temperature 97.2 F L 08/13/19 05:42 Pulse Rate 68 08/13/19 05:42 Respiratory Rate 18 08/13/19 05:42 Blood Pressure 127/83 08/13/19 05:42 O2 Sat by Pulse Oximetry (%) aaox3 ambulating no acute distress lungs assessed CTA - Treatment Hospital Course: Detox Protocol Followed, Detoxed Safely, Responded well, Discharged Condition Good, Rehab Referral Accepted - Medication Discharge Medications: Ambulatory Orders Gabapentin [Neurontin] 300 mg PO BID #28 capsule 01/10/19 Olanzapine [ZyPREXA -] 10 mg PO HS #30 tablet 08/13/19 - Diagnosis (1) Alcohol dependence with uncomplicated withdrawal Current Visit: Yes Status: Chronic (2) Substance induced mood disorder Current Visit: Yes Status: Acute (3) cannabis dependence Current Visit: Yes Status: Chronic (4) Borderline diabetes mellitus Current Visit: Yes Status: Chronic (5) Gout Current Visit: Yes Status: Chronic Qualifiers: Gout site: unspecified site Gout etiology: unspecified cause Chronicity: unspecified Qualified Code(s): M10.9 - Gout, unspecified (6) Nicotine dependence Current Visit: Yes Status: Chronic Qualifiers: Nicotine product type: cigarettes Substance use status: uncomplicated Qualified Code(s): F17.210 - Nicotine dependence, cigarettes, uncomplicated (7) Alcohol dependence Current Visit: Yes Status: Chronic Qualifiers: Substance use status: uncomplicated Qualified Code(s): F10.20 - Alcohol dependence, uncomplicated (8) Drug-induced mood disorder Current Visit: No Status: Acute (9) Elevated liver enzymes Current Visit: No Status: Acute (10) Hyperglycemia Current Visit: No Status: Acute (11) Opioid dependence Current Visit: Yes Status: Chronic Qualifiers: Substance use status: uncomplicated Qualified Code(s): F11.20 - Opioid dependence, uncomplicated (12) Right flank pain Current Visit: No Status: Acute (13) Substance induced mood disorder Current Visit: No Status: Acute (14) Substance-induced anxiety disorder Current Visit: No Status: Acute (15) Substance-induced sleep disorder Current Visit: No Status: Acute (16) Alcohol-induced mood disorder Current Visit: No Status: Chronic (17) Alcohol-induced sleep disorder Current Visit: No Status: Chronic (18) Anxiety and depression Current Visit: No Status: Chronic (19) Back pain Current Visit: No Status: Chronic Qualifiers: Back pain location: back pain in unspecified location (20) Depression Current Visit: No Status: Chronic Qualifiers: Depression Type: unspecified Qualified Code(s): F32.9 - Major depressive disorder, single episode, unspecified (21) Hearing loss in left ear Current Visit: No Status: Chronic (22) Insomnia Current Visit: No Status: Chronic Qualifiers: Insomnia type: unspecified Qualified Code(s): G47.00 - Insomnia, unspecified (23) Schizoaffective disorder Current Visit: No Status: Chronic (24) Positive PPD, treated Current Visit: No Status: Resolved (25) Bipolar disorder Current Visit: No Status: Ruled-out (26) Bipolar disorder Current Visit: No Status: Ruled-out - AMA Did Patient Leave Against Medical Advice: No
== END 2019-08-13 08:52 | disposition home or self-care (01) | DRG 773 ==
LOC: YASAS 21:38 → Y6N 23:32
PROVIDERS: ADMIT Allergy & Immunology; ATTEND Allergy & Immunology
PROC: HZ2ZZZZ Detoxification Services for Substance Abuse Treatment (ICD-10-PCS; principal; 2019-08-07)
DX: F10.230 Alcohol dependence with withdrawal, uncomplicated (principal); F11.20 Opioid dependence, uncomplicated; F14.20 Cocaine dependence, uncomplicated; F12.20 Cannabis dependence, uncomplicated; F17.210 Nicotine dependence, cigarettes, uncomplicated; F19.282 Other psychoactive substance dependence with psychoactive substance-induced sleep disorder; F19.280 Other psychoactive substance dependence with psychoactive substance-induced anxiety disorder; F19.24 Other psychoactive substance dependence with psychoactive substance-induced mood disorder; F10.24 Alcohol dependence with alcohol-induced mood disorder; F10.282 Alcohol dependence with alcohol-induced sleep disorder; M10.9 Gout, unspecified; F10.280 Alcohol dependence with alcohol-induced anxiety disorder; F25.9 Schizoaffective disorder, unspecified; F32.9 Major depressive disorder, single episode, unspecified; F41.8 Other specified anxiety disorders; H91.92 Unspecified hearing loss, left ear; R73.03 Prediabetes

== ENCOUNTER 2019-08-24 23:06 | Emergency (ER) | payer OTHER ==
--- NOTE | 2019-08-24 23:16 | PDOC ---
History of Present Illness - General Stated Complaint: INTOX, HEAD INJURY Time Seen by Provider: 08/24/19 23:16 - History of Present Illness Initial Comments: 08/24/19 23:33 59 year old man with a history of alcohol and marijuana abuse who presents with acute intoxication and head trauma. The patient presented at [facility] for rehab but reported to them that he had a fall and hit his head earlier today. He reports that he drank wine and vodka and he had a second of blacking out. He denies pain to any other area. ROS - limited 2/ intoxication GENERAL/CONSTITUTIONAL: No fever or chills. No weakness. HEAD, EYES, EARS, NOSE AND THROAT: No change in vision. No ear pain or discharge. No sore throat. CARDIOVASCULAR: No chest pain or shortness of breath RESPIRATORY: No cough, wheezing, or hemoptysis. GASTROINTESTINAL: No nausea, vomiting, diarrhea or constipation. GENITOURINARY: No dysuria, frequency, or change in urination. MUSCULOSKELETAL: No joint or muscle swelling or pain. No neck or back pain. SKIN: No rash PE GENERAL: intoxicated HEAD: No signs of trauma, normocephalic, atraumatic EYES: PERRLA, EOMI, sclera anicteric, conjunctiva clear ENT: oropharynx clear without exudates. Moist mucosa NECK: Normal ROM, supple LUNGS: No distress, speaks full sentences, clear to auscultation bilaterally HEART: Regular rate and rhythm, normal S1 and S2, no murmurs, rubs or gallops, peripheral pulses normal and equal bilaterally. ABDOMEN: Soft, nontender. No guarding, no rebound. No masses EXTREMITIES : Normal inspection, Normal range of motion, no edema. No clubbing or cyanosis. NEUROLOGICAL: Cranial nerves II through XII grossly intact. Normal speech, no focal sensorimotor deficits SKIN: Warm, Dry, normal turgor, no rashes or lesions noted MDM ED Course: Evaluate for head trauma and c-spine trauma BRITTANIE Cisneros PGY2 Emergency Medicine Past History - Past Medical History Allergies/Adverse Reactions: Allergies Allergy/AdvReac Type Severity Reaction Status Date / Time No Known Allergies Allergy Verified 08/24/19 23:17 Home Medications: Ambulatory Orders Gabapentin [Neurontin] 300 mg PO BID #28 capsule 01/10/19 Olanzapine [ZyPREXA -] 10 mg PO HS #30 tablet 08/13/19 Anemia: No Asthma: No Cancer: No Cardiac Disorders: No CVA: No COPD: No CHF: No Dementia: No Diabetes: No GI Disorders: No Disorders: No HTN: No Hypercholesterolemia: No Kidney Stones: No Liver Disease: No Psychiatric Problems: Yes (Depression, schizophrenia) Seizures: No Thyroid Disease: No - Surgical History Abdominal Surgery: No Appendectomy: No Cardiac Surgery: No Cholecystectomy: No Lung Surgery: No Neurologic Surgery: No Orthopedic Surgery: Yes (LEFT KNEE SURGERY 1984) - Reproductive History Testicular Surgery: No - Immunization History Td Vaccination: Yes TDAP Vaccination: Yes Immunization Up to Date: Yes - Psycho Social/Smoking Cessation Hx Smoking Status: Yes Smoking History: Current some day smoker Have you smoked in the past 12 months: Yes Number of Cigarettes Smoked Daily: 6 Cigars Per Day: 1 'Breaking Loose' booklet given: 08/07/19 Drug/Substance Use Hx: Yes Substance Use Type: Alcohol, Marijuana Hx Substance Use Treatment: Yes Discharge - Discharge Information Problems reviewed: Yes Clinical Impression/Diagnosis: Alcohol dependence - Follow up/Referral - Patient Discharge Instructions - Post Discharge Activity
[2019-08-24 23:19] VITALS: TEMP 97.5; BMI 27.1
--- NOTE | 2019-08-25 01:31 | PDOC ---
Documentation entered by Omid Davis SCRIBE, acting as scribe for Pam Cardenas MD. Pam Cardenas MD: This documentation has been prepared by the alfreditoeRyan Daniel, SCRIBE, under my direction and personally reviewed by me in its entirety. I confirm that the documentation accurately reflects all work, treatment, procedures, and medical decision making performed by me. Attending Attestation - Resident Resident Name: Danna Cisneros - ED Attending Attestation I have performed the following: I have examined & evaluated the patient, The case was reviewed & discussed with the resident, I agree w/resident's findings & plan, Exceptions are as noted - HPI HPI: 08/25/19 00:27 The patient is a 59 year old male with a past medical history of depression and schizophrenia here today for evaluation s/p fall. The patient reports that he fell prior to presenting to [facility] and states that he blacked out for 1 second after his fall. He notes drinking vodka and wine today. Patient denies headache, lightheadedness. Denies fever, chills. Denies chest pain, shortness of breath. Denies nausea, vomiting, diarrhea, abdominal pain. Allergies: NKA - Physicial Exam PE: GENERAL: Awake, alert, and oriented to person and place. +AOB HEAD: No signs of trauma EYES: PERRLA, EOMI, sclera anicteric, conjunctiva clear ENT: Auricles normal inspection, hearing grossly normal, nares patent, oropharynx clear without exudates. Moist mucosa NECK: Normal ROM, supple, no lymphadenopathy, JVD, or masses LUNGS: Breath sounds equal, clear to auscultation bilaterally. No wheezes, and no crackles HEART: Regular rate and rhythm, normal S1 and S2, no murmurs, rubs or gallops ABDOMEN: Soft, nontender, normoactive bowel sounds. No guarding, no rebound. No masses EXTREMITIES: Normal range of motion, no edema. No clubbing or cyanosis. No cords, erythema, or tenderness NEUROLOGICAL: Cranial nerves II through XII grossly intact. +Slurred speech. Motor and sensation intact SKIN: Warm, dry, normal turgor, no rashes or lesions noted. - Medical Decision Making Pt presents with alcohol intox, head injury. No signs of trauma on evaluation. Will obtain CTH, c-spine. DC when clinically sober. Discharge - Discharge Information Problems reviewed: Yes Clinical Impression/Diagnosis: Alcohol dependence Qualifiers: Substance use status: other alcohol-induced disorder Qualified Code(s): F10.288 - Alcohol dependence with other alcohol-induced disorder Condition: Stable Disposition: HOME - Follow up/Referral - Patient Discharge Instructions Patient Printed Discharge Instructions: DI for Alcohol Abuse Additional Instructions: You were seen in the ER for intoxication You had CTs done for a prior fall that were negative You should follow up with your Family Doctor within 1 week. Return to the ER if you develop worsening pain, headache, loss of consciousness, nausea, vomiting or any other concerning symptoms - Post Discharge Activity
--- NOTE | 2019-08-25 04:06 | PDOC ---
*Physical Exam - Vital Signs Last Vital Signs Temp Pulse Resp BP Pulse Ox 97.5 F L 108 H 20 119/66 97 08/24/19 23:17 08/24/19 23:17 08/24/19 23:17 08/24/19 23:17 08/24/19 23:17 <Lisa Perez - Last Filed: 08/25/19 04:04> - Vital Signs Last Vital Signs Temp Pulse Resp BP Pulse Ox 97.5 F L 108 H 20 119/66 97 08/24/19 23:17 08/24/19 23:17 08/24/19 23:17 08/24/19 23:17 08/24/19 23:17 <Danna Cisneros - Last Filed: 08/25/19 05:11> ED Treatment Course - RADIOLOGY Radiology Studies Ordered: Category Date Time Status CERVICAL SPINE CT W/O CONTR [CT] Stat CT Scan 08/24/19 23:[address] WITHOUT CONTRAST [CT] Stat CT Scan 08/24/19 23:19 Taken <Danna Cisneros - Last Filed: 08/25/19 05:11> Medical Decision Making - Medical Decision Making 08/25/19 04:04 Patient Name: KRYSTIAN GRANDA THIS IS A PRELIMINARY REPORT FROM [facility] DATE OF SERVICE: 2019-08-24 23:41:59 IMAGES: 315 EXAM: CT CERVICAL SPINE WITHOUT IV CONTRAST INDICATION : Evaluate for fracture. TECHNIQUE: Axial images of the cervical spine with reformatted coronal and sagittal images. Bone and soft tissue windows are reviewed. One or more of the following dose reduction techniques were used: automated exposure control, adjustment of the mA and/or kV according to patient size, use of iterative reconstructive technique. Contrast: None COMPARISON: None FINDINGS: Motion artifact degrades the quality of images. The vertebral body heights are maintained, without fracture or subluxation. Degenerative disc disease and spondylosis: Mild to moderate at multi-level . The prevertebral soft tissues are normal in caliber. The epidural and paraspinal soft tissues are unremarkable. There is no apical pulmonary mass or pneumothorax. The visualized brain and posterior fossa are unremarkable. C2-T1: Multilevel posterior disc osteophyte complex formation without significant spinal canal stenosis or neuroforaminal stenosis. Other findings: None IMPRESSION: 1. Straightening of the cervical lordosis without acute fracture or traumatic malalignment. Patient Name: KRYSTIAN GRANDA THIS IS A PRELIMINARY REPORT FROM [facility] DATE OF SERVICE: 2019-08-24 23:45:10 IMAGES: [id number] EXAM: CT HEAD WITHOUT IV CONTRAST TECHNIQUE: Axial images from the skull base to the vertex. Bone and soft tissue windows were reviewed. One or more of the following dose reduction techniques were used: automated exposure control, adjustment of the mA and/or kV according to patient size, use of iterative reconstructive technique. Contrast: None REASON FOR EXAM: Intoxicated. COMPARISON: None. FINDINGS: The brain parenchymal architecture appears normal, with preservation of the howe-white differentiation. There is no acute intracranial hemorrhage, mass effect or midline shift. No abnormal intra-axial or extra-axial fluid collection is seen. The periventricular white matter is unremarkable. The ventricles and basilar cisterns are maintained. Incidental note is made of cavum of septum pellucidum. The bones of the calvarium and imaged skull base demonstrate no acute abnormality. The imaged paranasal sinuses and mastoid air cells : Mild mucosal thickening of the ethmoid air cells. IMPRESSION: 1. No acute territorial infarct, hemorrhage, or space-occupying mass. <Lisa Perez - Last Filed: 08/25/19 04:04> Discharge <Lisa Perez - Last Filed: 08/25/19 04:04> - Discharge Information Problems reviewed: Yes - Admission No <Danna Cisneros - Last Filed: 08/25/19 05:11> - Discharge Information Clinical Impression/Diagnosis: Alcohol dependence Condition: Stable Disposition: HOME - Patient Discharge Instructions Patient Printed Discharge Instructions: DI for Alcohol Abuse Additional Instructions: You were seen in the ER for intoxication You had CTs done for a prior fall that were negative You should follow up with your Family Doctor within 1 week. Return to the ER if you develop worsening pain, headache, loss of consciousness, nausea, vomiting or any other concerning symptoms
[2019-08-25 06:55] VITALS: BP 127/76; PULSE 94
--- NOTE | 2019-08-25 07:10 | PDOC ---
*Physical Exam - Vital Signs Last Vital Signs Temp Pulse Resp BP Pulse Ox 97.5 F L 94 H 18 127/76 97 08/24/19 23:17 08/25/19 06:52 08/25/19 06:52 08/25/19 06:52 08/25/19 06:52 Medical Decision Making - Medical Decision Making 08/25/19 07:09 Pt received on sign out from Dr. Cisneros. 59M hx of etoh/marijuana use disorder presenting with acute intoxication and head trauma. CT head/neck negative. Plan to return [facility]. Discharge - Discharge Information Problems reviewed: Yes Clinical Impression/Diagnosis: Alcohol dependence Condition: Stable Disposition: HOME - Admission No - Follow up/Referral - Patient Discharge Instructions Patient Printed Discharge Instructions: DI for Alcohol Abuse Additional Instructions: You were seen in the ER for intoxication You had CTs done for a prior fall that were negative You should follow up with your Family Doctor within 1 week. Return to the ER if you develop worsening pain, headache, loss of consciousness, nausea, vomiting or any other concerning symptoms - Post Discharge Activity
== END 2019-08-25 07:56 | disposition home or self-care (01) ==
LOC: JER 23:06
DX: F10.220 Alcohol dependence with intoxication, uncomplicated (principal); R55 Syncope and collapse; S09.8XXA Other specified injuries of head, initial encounter; W19.XXXA Unspecified fall, initial encounter; Y93.89 Activity, other specified; Y92.89 Other specified places as the place of occurrence of the external cause; Y99.8 Other external cause status; F12.10 Cannabis abuse, uncomplicated; F20.9 Schizophrenia, unspecified; F32.9 Major depressive disorder, single episode, unspecified
CPT/HCPCS: 70450-TC; 72125-TC; 99284-25

== ENCOUNTER 2019-12-05 18:40 | Emergency (ER) | payer OTHER ==
[2019-12-05 19:11] VITALS: TEMP 97.1; BMI 29.2
--- NOTE | 2019-12-05 19:28 | PDOC ---
Attending Attestation - Resident Resident Name: Dave Black - ED Attending Attestation I have performed the following: I have examined & evaluated the patient, The case was reviewed & discussed with the resident, I agree w/resident's findings & plan - HPI HPI: 12/05/19 22:28 see resident hpi - Physicial Exam PE: 12/05/19 22:28 see resident exam - Medical Decision Making 12/05/19 22:28 59-year-old male brought in for public intoxication CT scan of the brain and EKG show no acute abnormalities Plan for metabolized to sobriety in the emergency department with eventual DC home Patient is not seeking detox Discharge - Discharge Information Problems reviewed: Yes Clinical Impression/Diagnosis: Alcohol intoxication Qualifiers: Complication of substance-induced condition: uncomplicated Qualified Code(s): F10.920 - Alcohol use, unspecified with intoxication, uncomplicated Condition: Stable Disposition: HOME - Follow up/Referral Referrals: Keyonna Fiore MD [Primary Care Provider] - - Patient Discharge Instructions - Post Discharge Activity
--- NOTE | 2019-12-05 19:30 | PDOC ---
History of Present Illness - General Chief Complaint: Alcohol intoxication Stated Complaint: INTOXICATED Time Seen by Provider: 12/05/19 19:05 History Source: Patient - History of Present Illness Initial Comments: 12/05/19 19:24 Mr. Myles is a 59F w/hx schizoaffective disorder, etoh use disorder, arthritis p/w etoh intoxication. He reports last etoh intake was 1800 today. He was recently discharged from detox yesterday, and presented to [facility] earlier today for evaluation of etoh intoxication. He reports drinking alcohol after his discharge from [facility]. He denies any numbness, confusion, weakness, head injury, falls, mva. Past History - Medical History Allergies/Adverse Reactions: Allergies Allergy/AdvReac Type Severity Reaction Status Date / Time No Known Allergies Allergy Verified 11/30/19 23:12 Home Medications: Ambulatory Orders Gabapentin [Neurontin] 300 mg PO BID #28 capsule 01/10/19 Olanzapine [ZyPREXA -] 10 mg PO HS #30 tablet 08/13/19 Anemia: No Asthma: No Cancer: No Cardiac Disorders: No CVA: No COPD: No CHF: No Dementia: No Diabetes: No GI Disorders: No Disorders: No HTN: No Hypercholesterolemia: No Kidney Stones: No Liver Disease: No Psychiatric Problems: Yes (Depression, schizophrenia) Seizures: No Thyroid Disease: No - Surgical History Abdominal Surgery: No Appendectomy: No Cardiac Surgery: No Cholecystectomy: No Lung Surgery: No Neurologic Surgery: No Orthopedic Surgery: Yes (LEFT KNEE SURGERY 1984) - Reproductive History Testicular Surgery: No - Immunization History Td Vaccination: Yes TDAP Vaccination: Yes Immunization Up to Date: Yes - Psycho-Social/Smoking History Smoking Status: Yes Smoking History: Current every day smoker Have you smoked in the past 12 months: Yes Number of Cigarettes Smoked Daily: 6 Cigars Per Day: 1 Information on smoking cessation initiated: Yes 'Breaking Loose' booklet given: 11/30/19 - Substance Abuse Hx (Audit-C & DAST Scrn) How often the patient has a drink containing alcohol: 4 0r more times/wk Number of drinks the patient has on a typical day: 3 or 4 How often the patient has six or more drinks on one occasion: Daily or almost daily Score: In Men: 4 or > Positive; In Women: 3 or > Positive: 9 Screen Result (Pos requires Nsg. Audit-10AR): Positive In the last yr the pt used illegal drug/Rx for NonMed reason: No Score: Yes response is considered Positive: 0 Screen Result (Positive result requires Nsg. DAST-10): Negative Review of Systems - Review of Systems Able to Perform ROS?: No (intoxication) *Physical Exam - Vital Signs Last Vital Signs Temp Pulse Resp BP Pulse Ox 97.1 F L 93 H 18 137/81 95 12/05/19 19:07 12/05/19 19:07 12/05/19 19:07 12/05/19 19:07 12/05/19 19:07 - Physical Exam 12/05/19 20:02 GENERAL: Intoxicated. Awake, in no acute distress HEAD: No signs of trauma, normocephalic, atraumatic EYES: PERRLA, EOMI, sclera anicteric, conjunctiva clear ENT: Auricles normal inspection, hearing grossly normal, nares patent, oropharynx clear without exudates. Moist mucosa NECK: Normal ROM, supple, no lymphadenopathy, JVD, or masses LUNGS: No distress, speaks full sentences, clear to auscultation bilaterally HEART: Regular rate and rhythm, normal S1 and S2, no murmurs, rubs or gallops, peripheral pulses normal and equal bilaterally. ABDOMEN: Soft, nontender, normoactive bowel sounds. No guarding, no rebound. No masses EXTREMITIES : Normal inspection, Normal range of motion, no edema. No clubbing or cyanosis NEUROLOGICAL: Slurred speech. Cranial nerves II through XII grossly intact. No focal sensorimotor deficits SKIN: Warm, Dry, normal turgor, no rashes or lesions noted Medical Decision Making - Medical Decision Making 12/05/19 20:04 59F w/hx etoh use disorder p/w intoxication, last etoh ingestion at approx 1800 today. Plan: CT head CT cervical spine [facility] Dispo: Discharge pending sobriety --- CT head, cervical spine negative for acute process. Discharge - Discharge Information Problems reviewed: Yes Clinical Impression/Diagnosis: Alcohol intoxication Qualifiers: Complication of substance-induced condition: uncomplicated Qualified Code(s): F10.920 - Alcohol use, unspecified with intoxication, uncomplicated Condition: Stable Disposition: HOME - Admission No - Follow up/Referral Referrals: Keyonna Fiore MD [Primary Care Provider] - - Patient Discharge Instructions Patient Printed Discharge Instructions: DI for Alcohol Abuse Additional Instructions: You were seen in the ER for alcohol intoxication. Your CT scan of your head was normal. Return to the ER if you develop worsening headaches, weakness, intractable nausea, confusion, high fevers, chest pain, or difficulty breathing. - Post Discharge Activity
[2019-12-05] MEDS ORDERED: chlordiazePOXIDE HCL 25 MG CAPSULE PO ONE (20:24)
[2019-12-05] MEDS ORDERED: chlordiazePOXIDE HCL 25 MG CAPSULE ONE (20:43)
[2019-12-06 02:38] VITALS: BP 133/63; PULSE 89
--- NOTE | 2019-12-06 17:40 | EKG ---
Test Reason : Blood Pressure : / mmHG Vent. Rate : 100 BPM Atrial Rate : 100 BPM P-R Int : 182 ms QRS Dur : 094 ms QT Int : 356 ms P-R-T Axes : 062 071 064 degrees QTc Int : 459 ms POOR DATA QUALITY, INTERPRETATION MAY BE ADVERSELY AFFECTED NORMAL SINUS RHYTHM CANNOT RULE OUT ANTERIOR INFARCT , AGE UNDETERMINED ABNORMAL ECG WHEN COMPARED WITH ECG OF 30-NOV-2019 23:23, VENT. RATE HAS INCREASED BY 34 BPM Confirmed by KRYSTIAN SU MD ([id number]) on 12/06/2019 5:39:47 PM Referred By: Confirmed By:KRYSTIAN SU MD
== END 2019-12-06 06:00 | disposition home or self-care (01) ==
LOC: JER 18:40
DX: F10.920 Alcohol use, unspecified with intoxication, uncomplicated (principal)
CPT/HCPCS: 70450-TC; 72125-TC; 82962; 93005; 93010; 99284-25

== ENCOUNTER 2019-12-25 18:32 | Inpatient (IN) | payer OTHER ==
[2019-12-25 18:42] VITALS: BMI 23.8
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
--- NOTE | 2019-12-25 19:28 | PDOC ---
Attending Attestation - Resident Resident Name: Kai Moseley - ED Attending Attestation I have performed the following: I have examined & evaluated the patient, The case was reviewed & discussed with the resident, I agree w/resident's findings & plan - HPI HPI: 12/25/19 20:31 see resident hpi - Physicial Exam PE: 12/25/19 20:32 see resident exam - Medical Decision Making 12/25/19 20:32 59-year-old male with history of schizophrenia as well as alcohol abuse now with chest pain and shortness of breath Due to patient's history and age we will plan for initial chest x-ray and labs including d-dimer and troponin with observation admission EKG shows subtle ST segment elevation in lead V3 which is change in morphology from previous This does not meet STEMI criteria at this time Patient has agreed to admission Discharge - Discharge Information Problems reviewed: Yes Clinical Impression/Diagnosis: Chest pain, Alcohol dependence - Follow up/Referral Referrals: Keyonna Fiore MD [Primary Care Provider] - - Patient Discharge Instructions - Post Discharge Activity
[2019-12-25] MEDS ORDERED: ACETAMINOPHEN 500 MG TABLET (FP) PO ONE (20:27)
[2019-12-25 20:37] LABS: HEMATOCRIT 37.7 % (35.4-49); HEMOGLOBIN 12.7 GM/dL (11.7-16.9); MCH 30.3 pg (25.7-33.7); MCHC 33.7 g/dl (32.0-35.9); MEAN CELL VOLUME 89.8 fl (80-96); MEAN PLT VOLUME 8.2 fl (7.5-11.1); PLATELET COUNT 169 K/MM3 (134-434); RDW 14.3 % (11.9-15.9); WHITE BLOOD COUNT 4.6 K/mm3 (4.0-10.0)
[2019-12-25] MEDS ORDERED: ACETAMINOPHEN 500 MG TABLET (FP) ONE (20:37)
[2019-12-25 21:05] LABS: INR 1.09 (0.83-1.09); PROTHROMBIN TIME (PATIENT) 12.9 SEC (9.7-13.0)
[2019-12-25 21:08] LABS: ACTIVATED PTT 30.2 SECONDS (25.2-36.5)
[2019-12-25 21:19] LABS: ALBUMIN 3.6 g/dl (3.4-5.0); ALK PHOS 108 U/L (45-117); ANION GAP 12 MMOL/L (8-16); BILIRUBIN,TOTAL 0.9 mg/dL (0.2-1); BLOOD UREA NITROGEN 8.1 mg/dL (7-18); CALCIUM 8.8 mg/dL (8.5-10.1); CHLORIDE 106 mmol/L (98-107); CO2 24 mmol/L (21-32); CREATININE 0.7 mg/dL (0.55-1.3); GLUCOSE,RANDOM 79 mg/dL (74-106); POTASSIUM 3.9 mmol/L (3.5-5.1); SGOT/AST 53 U/L (15-37); SGPT/ALT 37 U/L (13-61); SODIUM 142 mmol/L (136-145); TOT PROT 7.6 g/dl (6.4-8.2)
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
--- NOTE | 2019-12-25 23:05 | PDOC ---
*Physical Exam - Vital Signs Last Vital Signs Temp Pulse Resp BP Pulse Ox 98.1 F 98 H 16 113/81 100 12/25/19 18:37 12/25/19 18:37 12/25/19 18:37 12/25/19 18:37 12/25/19 18:37 ED Treatment Course - LABORATORY CBC & Chemistry Diagram: 12/26/19 06:18 12/26/19 06:18 - ADDITIONAL ORDERS Additional order review: Laboratory Results 12/25/19 12/25/19 12/25/19 20:20 20:20 20:20 PT with INR 12.90 INR 1.09 PTT (Actin FS) 30.2 D-Dimer 1337 H Sodium 142 Potassium 3.9 Chloride 106 Carbon Dioxide 24 Anion Gap 12 BUN 8.1 Creatinine 0.7 Est GFR (CKD-EPI)AfAm 119.72 Est GFR (CKD-EPI)NonAf 103.30 Random Glucose 79 Calcium 8.8 Total Bilirubin 0.9 AST 53 H ALT 37 Alkaline Phosphatase 108 Creatine Kinase 191 Creatine Kinase Index 0.7 CK-MB (CK-2) 1.4 Troponin I < 0.02 Total Protein 7.6 Albumin 3.6 12/25/19 20:20 RBC 4.20 MCV 89.8 MCHC 33.7 RDW 14.3 MPV 8.2 D - RADIOLOGY Radiology Studies Ordered: Category Date Time Status CHEST CTA [CT] Stat CT Scan 12/25/19 22:35 Taken - Medications Given in the ED: ED Medications Discontinued Medications Generic Name Dose Route Start Last Admin Trade Name Freq PRN Reason Stop Dose Admin Acetaminophen 1,000 mg 12/25/19 20:27 12/25/19 20:41 Tylenol - PO 12/25/19 20:28 1,000 mg ONCE ONE Administration Medical Decision Making - Medical Decision Making Patient signed out by Dr. Moseley 59yo M with PMH of schizoaffective disorder, ETOH abuse, smoking presenting with chest pain Already endorsed to [facility] team by Dr. Moseley Pending CTA Chest report 12/25/19 23:01 CTA Chest without evidence of PE: "EXAM#: TYPE/EXAM: RESULT: [id number] CT/CHEST CTA Chest pain. Elevated d-dimer CT scan of the chest following intravenous contrast. A post intravenous contrast CT angiogram of the chest was performed utilizing pulmonary embolus protocol. Coronal/ sagittal reconstruction images were obtained. 58 cc of Omnipaque 350 was intravenously injected Compared to prior chest x-ray dated 12/25/2019 No gross filling defect is seen within the main pulmonary artery and its proximal branches, bilaterally. The thoracic and visualized portion of the upper abdominal aorta is normally enhanced without evidence of aneurysmal dilatation or dissection. The heart is within normal limits in size. No gross mediastinal or hilar enlarged lymph nodes are identified. There are multiple subpleural bulla and the right lung apex and in the medial aspect of the right upper lobe. The rest of the lung is clear. No pneumothorax or pleural effusion is seen, bilaterally. Included portion of the u pper abdomen appears unremarkable except for questionable mild fatty infiltration of the liver. Visualized osseous structures appear intact IMPRESSION: There is no evidence of a pulmonary embolus within the main pulmonary artery and its proximal branches, bilaterally. Subpleural bulla in the right upper lobe, mainly at the apex and along its medial margin suggestive of mild COPD changes. The rest of the lung is clear. No enlarged mediastinal or hilar lymph nodes are identified. Included portion of the upper abdomen appears unremarkable except for a questionable mild fatty infiltration of the liver. Reported By: Rosa Olson MD 12/25/19 2323 " 12/25/19 23:27 Discharge - Discharge Information Problems reviewed: Yes Clinical Impression/Diagnosis: Chest pain Qualifiers: Chest pain type: unspecified Qualified Code(s): R07.9 - Chest pain, unspecified Alcohol dependence Qualifiers: Substance use status: in withdrawal Complication of substance-induced condition: uncomplicated Qualified Code(s): F10.230 - Alcohol dependence with withdrawal, uncomplicated - Follow up/Referral - Patient Discharge Instructions - Post Discharge Activity
[2019-12-25] MEDS ORDERED: MORPHINE SULFATE 2 MG/ML VIAL IVPUSH ONE (23:45)
[2019-12-25] MEDS ORDERED: MORPHINE SULFATE 2 MG/ML VIAL ONE (23:57)
[2019-12-26] MEDS ORDERED: LORazepam 2 MG/ML SDV VIAL IVPUSH PRN (00:24)
[2019-12-26 06:48] LABS: HEMATOCRIT 38.5 % (35.4-49); HEMOGLOBIN 12.9 GM/dL (11.7-16.9); MCH 30.3 pg (25.7-33.7); MCHC 33.6 g/dl (32.0-35.9); MEAN PLT VOLUME 8.1 fl (7.5-11.1); PLATELET COUNT 167 K/MM3 (134-434); RBC 4.27 M/mm3 (4.00-5.60); RDW 14.3 % (11.9-15.9); WHITE BLOOD COUNT 3.2 K/mm3 (4.0-10.0)
[2019-12-26 07:11] LABS: BLOOD UREA NITROGEN 8.5 mg/dL (7-18); CALCIUM 8.6 mg/dL (8.5-10.1); CREATININE 0.6 mg/dL (0.55-1.3)
[2019-12-26 07:30] VITALS: BP 159/84; PULSE 77; TEMP 97.8
[2019-12-26] MEDS ORDERED: ASPIRIN 81 MG CHEWABLE TABLETS ONE (09:10)
--- NOTE | 2019-12-26 09:17 | CON.CARD ---
Consult Consult Specialty:: Cardiology Referred by:: Sander Reason for Consultation:: Chest pain - History of Present Illness Chief Complaint: Chest pain History of Present Illness: The patient is a 59-year-old man, heavy smoker and alcohol consumer for years, COPD, schizoaffective disorder, now presenting with intermittent chest pains for the past 2 months. The patient reports bilateral chest pains. Symptoms are worse by pressing the chest. Not related to effort. He has chronic dyspnea on effort. The patient is in the stretcher in the emergency room. He is relaxed and comfortable. Chest pain-free. Breathing normally. - History Source History Provided By: Patient Limitations to Obtaining History: No Limitations - Past Medical History Pulmonary: Yes: COPD Infectious Disease: Yes: Other (positive ppd treated) Psych: Yes: Depression, Other (Schizoaffective disorder) - Alcohol/Substance Use Hx Alcohol Use: Yes Number of Drinks Daily: 8 - Smoking History Smoking history: Never smoked Have you smoked in the past 12 months: Yes Aproximately how many cigarettes per day: 6 - Social History Usual Living Arrangement: Alone ADL: Independent History of Recent Travel: No Home Medications - Allergies Allergies/Adverse Reactions: Allergies Allergy/AdvReac Type Severity Reaction Status Date / Time No Known Allergies Allergy Verified 12/25/19 18:34 - Home Medications Home Medications: Ambulatory Orders Gabapentin [Neurontin] 300 mg PO BID #28 capsule 01/10/19 Olanzapine [ZyPREXA -] 10 mg PO HS #30 tablet 08/13/19 Review of Systems - Review of Systems Constitutional: reports: No Symptoms Eyes: reports: No Symptoms HENT: reports: No Symptoms Neck: reports: No Symptoms Cardiovascular: reports: Chest Pain Respiratory: reports: Cough Gastrointestinal: reports: No Symptoms Genitourinary: reports: No Symptoms Breasts: reports: No Symptoms Reported Musculoskeletal: reports: No Symptoms Integumentary: reports: No Symptoms Neurological: reports: No Symptoms Endocrine: reports: No Symptoms Hematology/Lymphatic: reports: No Symptoms Psychiatric: reports: No Symptoms Vital Signs: Vital Signs Temperature 97.8 F 12/26/19 06:00 Pulse Rate 77 12/26/19 06:00 Respiratory Rate 18 12/26/19 06:00 Blood Pressure 159/84 12/26/19 06:00 O2 Sat by Pulse Oximetry (%) 97 12/26/19 06:00 Constitutional: Yes: Well Nourished, No Distress, Calm Eyes: Yes: WNL, Conjunctiva Clear, EOM Intact HENT: Yes: WNL, Atraumatic, Normocephalic Neck: Yes: WNL, Supple, Trachea Midline Respiratory: Yes: WNL, Regular, CTA Bilaterally Gastrointestinal: Yes: WNL, Normal Bowel Sounds, Soft Renal/: Yes: WNL Cardiovascular: Yes: WNL, Regular Rate and Rhythm JVD: No Carotid Bruit: No PMI: Non-Displaced Heart Sounds: Yes: S1, S2 Murmur: Yes: Systolic Murmur, Grade 2 Musculoskeletal: Yes: WNL Extremities: Yes: WNL Edema: No Peripheral Pulses WNL: Yes Integumentary: Yes: WNL Neurological: Yes: WNL, Alert, Oriented ...Motor Strength: WNL Psychiatric: Yes: WNL, Alert, Oriented - Other Data Labs, Other Data: CBC, BMP 12/26/19 06:18 12/26/19 06:18 INR, PTT INR 1.09 (0.83-1.09) 12/25/19 20:20 Troponin, BNP 12/25/19 12/26/19 20:20 01:30 Troponin I < 0.02 < 0.02 Troponin, BNP 12/25/19 12/26/19 20:20 01:30 Troponin I < 0.02 < 0.02 Assessment/Plan The patient is a 59-year-old man, heavy smoker and alcohol consumer for years, COPD, schizoaffective disorder, now presenting with intermittent chest pains for the past 2 months. The patient reports bilateral chest pains. Symptoms are worse by pressing the chest. Not related to effort. He has chronic dyspnea on effort. The patient is in the stretcher in the emergency room. He is relaxed and comfortable. Chest pain-free. Breathing normally. There is no evidence of ischemia nor acute coronary syndrome. Atypical chest pains. No CHF. Please arrange for an echocardiogram. Also arrange for a Lexiscan nuclear stress test. No need for cardiac monitoring. Atypical chest pains. Watch for alcohol withdrawal. The patient is stable.
--- NOTE | 2019-12-26 09:37 | EKG ---
Test Reason : Blood Pressure : / mmHG Vent. Rate : 083 BPM Atrial Rate : 083 BPM P-R Int : 180 ms QRS Dur : 100 ms QT Int : 408 ms P-R-T Axes : 066 051 055 degrees QTc Int : 479 ms NORMAL SINUS RHYTHM LEFT ATRIAL ENLARGEMENT LEFT VENTRICULAR HYPERTROPHY BORDERLINE ECG Confirmed by MD CHRISTIE, AMINA ([id number]) on 12/26/2019 9:36:51 AM Referred By: Confirmed By:AMINA SORIANO MD
[2019-12-26] MEDS ORDERED: ENOXAPARIN NA (PORCINE) 40 MG/0.4 ML DISP.SYRIN SQ ONE (09:56)
[2019-12-26] MEDS ORDERED: ENOXAPARIN NA (PORCINE) 40 MG/0.4 ML DISP.SYRIN SQ SCH (10:00)
[2019-12-26] MEDS ORDERED: GABAPENTIN 300 MG CAPSULE PO SCH (10:00)
[2019-12-26] MEDS ORDERED: ASPIRIN 81 MG CHEWABLE TABLETS PO SCH (10:00)
--- NOTE | 2019-12-26 10:55 | PN ---
Progress Note, Physician Chief Complaint: Intermittent Chest pain History of Present Illness: NAD Seen in Cardiology Just finished Echo Spoke to cardiology, chest pain atypical EKG- no changes Trops negative Pt only feels pain when he coughs Has not been eating much, drinks 12 cans of beer/day, smoked 1/2 ppd since age 11 CTA- COPD otherwise no acute pathology - Current Medication List Current Medications: Active Medications Aspirin (Asa -) 81 mg PO DAILY [facility] Last Admin: 12/26/19 10:00 Dose: 81 mg Documented by: Enoxaparin Sodium (Lovenox -) 40 mg SQ DAILY [facility] Last Admin: 12/26/19 10:00 Dose: 40 mg Documented by: Gabapentin (Neurontin -) 300 mg PO BID [facility] Last Admin: 12/26/19 10:00 Dose: 300 mg Documented by: Lorazepam (Ativan Injection -) 0.5 mg IVPUSH Q6H PRN PRN Reason: WITHDRAWAL(CONT SUBST) Olanzapine (Zyprexa -) 10 mg PO [facility] - Objective Vital Signs: Vital Signs Temperature 97.8 F 12/26/19 06:00 Pulse Rate 77 12/26/19 06:00 Respiratory Rate 18 12/26/19 06:00 Blood Pressure 159/84 12/26/19 06:00 O2 Sat by Pulse Oximetry (%) 97 12/26/19 06:00 Constitutional: Yes: Well Nourished, No Distress, Calm Cardiovascular: Yes: Regular Rate and Rhythm Respiratory: Yes: Regular, CTA Bilaterally Gastrointestinal: Yes: Normal Bowel Sounds, Soft Genitourinary: Yes: WNL Musculoskeletal: Yes: WNL Extremities: Yes: WNL Edema: No Peripheral Pulses WNL: Yes Neurological: Yes: Alert, Oriented Psychiatric: Yes: Alert, Oriented Labs: CBC, BMP 12/26/19 06:18 12/26/19 06:18 INR, PTT INR 1.09 (0.83-1.09) 12/25/19 20:20 Problem List - Problems (1) Atypical chest pain Assessment/Plan: -Seen and evaluated by Cardiology -Echo done, reviewed, unremarkable -Trops x 2 negative -EKG-unremarkable -Pt to f/u with cardiology outpatient for Stress test Problems reviewed: Yes Code(s): R07.89 - OTHER CHEST PAIN (2) Alcohol use disorder Assessment/Plan: -Encouraged to decrease intake of alcohol -PPI Problems reviewed: Yes Code(s): IIH1861 - (3) Schizoaffective disorder Assessment/Plan: -Continue home meds Problems reviewed: Yes Code(s): F25.9 - SCHIZOAFFECTIVE DISORDER, UNSPECIFIED Assessment/Plan See problem list
[2019-12-26] MEDS ORDERED: PANTOPRAZOLE 40 MG TABLET PO SCH (11:00)
[2019-12-26] MEDS ORDERED: PANTOPRAZOLE 40 MG TABLET ONE (11:27)
--- NOTE | 2019-12-26 12:59 | ECHO ---
Version: 1 Name: KRYSTIAN GRANDA Exam: Adult Echocardiogram Study Date: 12/26/2019, 10:37 AM Age: 59 Years MMode/2D Measurements & Calculations IVSd: 1.30 cm LVIDs: 2.6 cm LVIDd: 4.2 cm LVPWd: 0.82 cm LAV (MOD-bp): 45.0 ml ACS: 2.27 cm Ao root diam: 3.6 cm LVOT diam: 2.5 cm LA dimension: 3.7 cm Doppler Measurements & Calculations MV E max garett: 53.3 cm/sec MVA(VTI): 5.5 cm MV A max garett: 60.2 cm/sec MV V2 max: 73.3 cm/sec MV mean P.44 mmHg MV max P.15 mmHg MV E/A: 0.89 Med E/e': 7.7 Lat E/e': 5.1 Med Peak E' Garett: 6.9 cm/sec Lat Peak E' Garett: 10.4 cm/sec Ao max P.6 mmHg MICHAEL(I,D): 5.5 cm Ao mean P.24 mmHg LV V1 mean: 62.6 cm/sec Ao V2 max: 95.0 cm/sec LV V1 mean P.86 mmHg TR max garett: 271.5 cm/sec TR max P.5 mmHg Procedure The study was technically difficult with many images being suboptimal in quality. Left Ventricle The left ventricular size, thickness and function are normal. Ejection Fraction = 65%. The transmitr al spectral Doppler flow pattern is normal for age. Right Ventricle The right ventricle is normal in size and function. Atria Normal left and right atrial size and function. Mitral Valve The mitral valve is grossly normal. There is no mitral regurgitation noted. Tricuspid Valve The tricuspid valve is not well visualized, but is grossly normal. There is trace tricuspid regurgit ation. Aortic Valve The aortic valve is normal in structure and function. Pulmonic Valve The pulmonic valve is not well visualized. Great Vessels The aortic root is normal size. Normal aortic arch, descending and ascending aorta. Pericardium/Pleura There is no pericardial effusion. Summary Statements The study was technically difficult with many images being suboptimal in quality. The left ventricular size, thickness and function are normal Ejection Fraction = 65%. The transmitral spectral Doppler flow pattern is normal for age. The right ventricle is normal in size and function. Normal left and right atrial size and function. The mitral valve is grossly normal. There is no mitral regurgitation noted. The tricuspid valve is not well visualized, but is grossly normal. There is trace tricuspid regurgitation. The aortic valve is normal in structure and function. The pulmonic valve is not well visualized. The aortic root is normal size. Normal aortic arch, descending and ascending aorta There is no pericardial effusion. Adolfo Najera 12/26/2019, 12:58 PM Ordering Physician: Sonam Plata Referring Physician: SONAM PLATA Performed By: INOCENTE
[2019-12-26] MEDS ORDERED: OLANZapine 10 MG TABLET PO SCH (22:00)
== END 2019-12-26 13:05 | disposition home or self-care (01) | DRG 203 ==
LOC: JER 18:32 → JERBED 22:22 → OBSVTOIN 23:05
PROVIDERS: ADMIT Internal Medicine; ATTEND Family Medicine
DX: R07.89 Other chest pain (principal); F10.20 Alcohol dependence, uncomplicated; J44.9 Chronic obstructive pulmonary disease, unspecified; F32.9 Major depressive disorder, single episode, unspecified; F25.9 Schizoaffective disorder, unspecified; F17.210 Nicotine dependence, cigarettes, uncomplicated; M54.5 Low back pain; K76.0 Fatty (change of) liver, not elsewhere classified
CPT/HCPCS: 36415; 71046-TC-FY; 71275-TC; 80048; 80053; 80061; 82550; 82553; 83721; 84484; 85027; 85379; 85610; 85730; 93005; 93010; 93306-TC; 99285-25; G0378; Q9967; U0003

== ENCOUNTER 2020-01-12 19:40 | Emergency (ER) | payer OTHER ==
--- NOTE | 2020-01-12 19:47 | PDOC ---
Rapid Medical Evaluation Time Seen by Provider: 01/12/20 19:41 Medical Evaluation: Allergies Allergy/AdvReac Type Severity Reaction Status Date / Time No Known Allergies Allergy Verified 12/25/19 18:34 01/12/20 19:42 I performed a brief in-person evaluation of this patient. Pt is a 59 y/o male who presents to the ED with etoh intoxication, he was sent out from [facility] and come here to the ED. Pt states that he "wants to get tested for everything". States he drank a 6 pack and a couple drink of moo nshine. Pertinent physical exam findings: speaking in full sentences but with slurred speech. I have ordered the following: deferred to treating provider's discretion Patient to proceed to ED for further evaluation. Discharge Disposition - Diagnosis Alcohol intoxication - Referrals - Patient Instructions - Post Discharge Activity
[2020-01-12 19:52] VITALS: TEMP 98.2; BMI 29.9
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
[2020-01-12] MEDS ORDERED: ACETAMINOPHEN 325 MG TABLET (FP) PO ONE (20:13)
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
[2020-01-12 20:25] LABS: HEMATOCRIT 39.2 % (35.4-49); HEMOGLOBIN 13.1 GM/dL (11.7-16.9); MCH 30.6 pg (25.7-33.7); MCHC 33.3 g/dl (32.0-35.9); MEAN CELL VOLUME 92.1 fl (80-96); MEAN PLT VOLUME 8.3 fl (7.5-11.1); PLATELET COUNT 150 K/MM3 (134-434); RBC 4.26 M/mm3 (4.00-5.60); RDW 14.2 % (11.9-15.9); WHITE BLOOD COUNT 2.7 K/mm3 (4.0-10.0)
[2020-01-12] MEDS ORDERED: ACETAMINOPHEN 325 MG TABLET (FP) ONE (20:43)
[2020-01-12 20:45] LABS: MAGNESIUM 2.2 mg/dL (1.8-2.4)
[2020-01-12 20:51] LABS: BILIRUBIN,TOTAL 0.6 mg/dL (0.2-1); BLOOD UREA NITROGEN 7.3 mg/dL (7-18); CREATININE 0.7 mg/dL (0.55-1.3)
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
[2020-01-13 06:32] VITALS: BP 142/72; PULSE 78
--- NOTE | 2020-01-14 10:05 | EKG ---
Test Reason : Blood Pressure : / mmHG Vent. Rate : 070 BPM Atrial Rate : 070 BPM P-R Int : 190 ms QRS Dur : 098 ms QT Int : 426 ms P-R-T Axes : 068 073 076 degrees QTc Int : 460 ms NORMAL SINUS RHYTHM NORMAL ECG WHEN COMPARED WITH ECG OF 25-DEC-2019 19:24, NO SIGNIFICANT CHANGE WAS FOUND Confirmed by David Sam ([id number]) on 01/14/2020 10:04:56 AM Referred By: Confirmed By:David Sam
== END 2020-01-13 06:50 | disposition home or self-care (01) ==
LOC: JER 19:40
DX: F10.929 Alcohol use, unspecified with intoxication, unspecified (principal); R07.9 Chest pain, unspecified
CPT/HCPCS: 36415; 71046-TC-FY; 80053; 83690; 83735; 84484; 85027; 87389; 93005; 93010; 99285-25

== ENCOUNTER 2020-01-29 18:34 | Inpatient (IN) | payer OTHER ==
[2020-01-29 18:56] VITALS: BMI 20.9
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
[2020-01-29] MEDS ORDERED: MAGNESIUM HYDROX 2400MG/30ML ORAL SUSPENSION 30 ML CUP PO PRN (20:00)
[2020-01-29] MEDS ORDERED: BISMUTH SUBSALICYLATE 524 MG/30 ML UD PO PRN (20:00)
[2020-01-29] MEDS ORDERED: IBUPROFEN 400 MG TABLET (FP) PO PRN (20:00)
[2020-01-29] MEDS ORDERED: MAG HYDROX/AL HYDROX/SIMETH 30 ML UNIT-DOSE CUP PO PRN (20:00)
[2020-01-29] MEDS ORDERED: ACETAMINOPHEN 325 MG TABLET (FP) PO PRN (20:00)
[2020-01-29] MEDS ORDERED: MAGNESIUM CITRATE 300 ML BOTTLE PO PRN (20:00)
[2020-01-29] MEDS ORDERED: hydrOXYzine PAMOATE 25 MG CAPSULE (FP) PO PRN (20:00)
[2020-01-29] MEDS ORDERED: METHOCARBAMOL 500 MG TABLET PO PRN (20:00)
[2020-01-29] MEDS ORDERED: MENTHOL/PHENOL 1 EACH UD MM PRN (20:00)
[2020-01-29] MEDS ORDERED: chlordiazePOXIDE HCL 25 MG CAPSULE PO PRN (20:02)
[2020-01-29] MEDS ORDERED: MELATONIN 5 MG TABLETS PO SCH (22:00)
[2020-01-29] MEDS: chlordiazePOXIDE HCL 25 MG CAPSULE PO SCH (22:18)
[2020-01-29] MEDS: THIAMINE HCL 100 MG TABLET (FP) PO SCH (22:18)
[2020-01-30] MEDS: chlordiazePOXIDE HCL 25 MG CAPSULE PO SCH ×4 (06:37→22:05)
[2020-01-30] MEDS: ASPIRIN 81 MG CHEWABLE TABLETS PO SCH (10:14)
[2020-01-30] MEDS: PANTOPRAZOLE 40 MG TABLET PO SCH (10:14)
[2020-01-30] MEDS: PRENATAL VITAMINS W/ FOLIC ACID TABLET (FP) PO SCH (10:15)
--- NOTE | 2020-01-30 10:53 | PN ---
S CIWA - CIWA Score Nausea/Vomitin-No Nausea/No Vomiting Muscle Tremors: 3 Anxiety: 2 Agitation: 2 Paroxysmal Sweats: 3 Orientation: 0-Oriented Tacttile Disturbances: 0-None Auditory Disturbances: 0-None Visual Disturbances: 0-None Headache: 0-None Present CIWA-Ar Total Score: 10 S Progress Note (SOAP) Subjective: shakes sweats body aches interrupted sleep bumped knee Objective: 01/30/20 12:05 Vital Signs Temperature 98.0 F 01/30/20 09:15 Pulse Rate 84 01/30/20 09:15 Respiratory Rate 18 01/30/20 09:15 Blood Pressure 119/75 01/30/20 09:15 O2 Sat by Pulse Oximetry (%) 97 01/30/20 06:03 labs pending [id number] ambulating no acute distress Assessment: 01/30/20 12:06 withdrawals Plan: continue detox motrin 600mg prn elisabeth bandage to help support right knee analgesic balm
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
[2020-01-30 12:21] LABS: HEMATOCRIT 37.1 % (35.4-49); HEMOGLOBIN 12.2 GM/dL (11.7-16.9); MCH 30.7 pg (25.7-33.7); MCHC 32.9 g/dl (32.0-35.9); MEAN CELL VOLUME 93.2 fl (80-96); MEAN PLT VOLUME 9.2 fl (7.5-11.1); PLATELET COUNT 130 K/MM3 (134-434); RBC 3.98 M/mm3 (4.00-5.60); RDW 13.8 % (11.9-15.9); WHITE BLOOD COUNT 2.4 K/mm3 (4.0-10.0)
[2020-01-30 12:28] LABS: ALBUMIN 3.9 g/dl (3.4-5.0); BLOOD UREA NITROGEN 10.4 mg/dL (7-18); CALCIUM 9.1 mg/dL (8.5-10.1); POTASSIUM 4.5 mmol/L (3.5-5.1)
[2020-01-30 12:35] LABS: BILIRUBIN,TOTAL 1.1 mg/dL (0.2-1); CREATININE 0.7 mg/dL (0.55-1.3); TOT PROT 7.5 g/dl (6.4-8.2)
[2020-01-30] MEDS: METHYL SALICYLATE/MENTHOL OINT 30 GM TUBE TP SCH ×2 (13:55→22:06)
[2020-01-30] MEDS: OLANZapine 10 MG TABLET PO SCH (22:05)
[2020-01-30] MEDS: MELATONIN 5 MG TABLETS PO PRN (22:06)
[2020-01-30] MEDS: THIAMINE HCL 100 MG TABLET (FP) PO SCH (22:06)
[2020-01-30] MEDS: IBUPROFEN 600 MG TABLET (FP) PO PRN (22:08)
[2020-01-31] MEDS: chlordiazePOXIDE HCL 25 MG CAPSULE PO SCH ×4 (06:13→22:35)
[2020-01-31] MEDS: ACETAMINOPHEN 325 MG TABLET (FP) PO PRN (06:16)
[2020-01-31] MEDS: PANTOPRAZOLE 40 MG TABLET PO SCH (10:27)
[2020-01-31] MEDS: ASPIRIN 81 MG CHEWABLE TABLETS PO SCH (10:28)
[2020-01-31] MEDS: METHYL SALICYLATE/MENTHOL OINT 30 GM TUBE TP SCH ×2 (10:29→23:15)
[2020-01-31] MEDS: PRENATAL VITAMINS W/ FOLIC ACID TABLET (FP) PO SCH (10:29)
[2020-01-31] MEDS: IBUPROFEN 600 MG TABLET (FP) PO PRN ×2 (10:29→16:42)
--- NOTE | 2020-01-31 13:11 | PN ---
S CIWA - CIWA Score Nausea/Vomitin-No Nausea/No Vomiting Muscle Tremors: 3 Anxiety: 2 Agitation: 2 Paroxysmal Sweats: 2 Orientation: 0-Oriented Tacttile Disturbances: 0-None Auditory Disturbances: 0-None Visual Disturbances: 0-None Headache: 0-None Present CIWA-Ar Total Score: 9 BHS Progress Note (SOAP) Subjective: sweats body aches interrupted sleep restless Objective: 01/31/20 13:09 Vital Signs Temperature 98.1 F 01/31/20 09:02 Pulse Rate 66 01/31/20 09:02 Respiratory Rate 18 01/31/20 09:02 Blood Pressure 149/94 01/31/20 09:02 O2 Sat by Pulse Oximetry (%) 97 01/31/20 06:04 Laboratory Tests 01/29/20 01/29/20 01/30/20 08:30 22:00 08:30 WBC 2.4 L RBC 3.98 L Hgb 12.2 Hct 37.1 MCV 93.2 MCH 30.7 MCHC 32.9 RDW 13.8 Plt Count 130 L MPV 9.2 D Sodium Potassium Chloride Carbon Dioxide Anion Gap BUN Creatinine Est GFR (CKD-EPI)AfAm Est GFR (CKD-EPI)NonAf Random Glucose Calcium Total Bilirubin AST ALT Alkaline Phosphatase Total Protein Albumin Syphilis Serology Non-reactive COVID-19 (TIMOTEO) Not detected 01/30/20 08:30 WBC RBC Hgb Hct MCV MCH MCHC RDW Plt Count MPV Sodium 138 Potassium 4.5 Chloride 103 Carbon Dioxide 27 Anion Gap 8 BUN 10.4 Creatinine 0.7 Est GFR (CKD-EPI)AfAm 119.72 Est GFR (CKD-EPI)NonAf 103.30 Random Glucose 74 Calcium 9.1 Total Bilirubin 1.1 H AST 57 H ALT 45 Alkaline Phosphatase 93 Total Protein 7.5 Albumin 3.9 Syphilis Serology COVID-19 (TIMOTEO) aaox3 ambulating no acute distress Assessment: 01/31/20 13:10 withdrawal sx Plan: continue detox
[2020-01-31] MEDS: THIAMINE HCL 100 MG TABLET (FP) PO SCH (22:35)
[2020-01-31] MEDS: OLANZapine 10 MG TABLET PO SCH (22:35)
[2020-01-31] MEDS: MELATONIN 5 MG TABLETS PO PRN (22:37)
[2020-02-01] MEDS ORDERED: chlordiazePOXIDE HCL 10 MG CAPSULE PO PRN
[2020-02-01] MEDS: chlordiazePOXIDE HCL 10 MG CAPSULE PO SCH ×4 (06:28→22:13)
--- NOTE | 2020-02-01 10:07 | PN ---
S CIWA - CIWA Score Nausea/Vomitin-Mild Nausea/No Vomiting Muscle Tremors: 2 Anxiety: 3 Agitation: 3 Paroxysmal Sweats: 1-Minimal Palms Moist Orientation: 0-Oriented Tacttile Disturbances: 0-None Auditory Disturbances: 0-None Visual Disturbances: 0-None Headache: 1-Very Mild CIWA-Ar Total Score: 11 BHS Progress Note (SOAP) Subjective: S- pt would like copies of labs and xrays- given says detox is going well. O: Vital Signs - 24 hr 01/31/20 01/31/20 01/31/20 13:32 17:41 20:31 Temperature 97.3 F L 97.9 F 97.5 F L Pulse Rate 66 56 L 67 Respiratory 20 19 18 Rate Blood Pressure 103/61 144/81 139/76 O2 Sat by Pulse 99 98 Oximetry (%) 02/01/20 02/01/20 06:22 09:05 Temperature 97.5 F L 97.3 F L Pulse Rate 60 73 Respiratory 18 20 Rate Blood Pressure 152/82 147/83 O2 Sat by Pulse 96 Oximetry (%) Laboratory Tests 01/29/20 01/29/20 01/30/20 08:30 22:00 08:30 WBC 2.4 L RBC 3.98 L Hgb 12.2 Hct 37.1 MCV 93.2 MCH 30.7 MCHC 32.9 RDW 13.8 Plt Count 130 L MPV 9.2 D Sodium Potassium Chloride Carbon Dioxide Anion Gap BUN Creatinine Est GFR (CKD-EPI)AfAm Est GFR (CKD-EPI)NonAf Random Glucose Calcium Total Bilirubin AST ALT Alkaline Phosphatase Total Protein Albumin Syphilis Serology Non-reactive COVID-19 (TIMOTEO) Not detected 01/30/20 08:30 WBC RBC Hgb Hct MCV MCH MCHC RDW Plt Count MPV Sodium 138 Potassium 4.5 Chloride 103 Carbon Dioxide 27 Anion Gap 8 BUN 10.4 Creatinine 0.7 Est GFR (CKD-EPI)AfAm 119.72 Est GFR (CKD-EPI)NonAf 103.30 Random Glucose 74 Calcium 9.1 Total Bilirubin 1.1 H AST 57 H ALT 45 Alkaline Phosphatase 93 Total Protein 7.5 Albumin 3.9 Syphilis Serology COVID-19 (TIMOTEO) a/p: alcohol- continue detox protocol, tolerating well copies of labs given to pt
[2020-02-01] MEDS: ASPIRIN 81 MG CHEWABLE TABLETS PO SCH (10:29)
[2020-02-01] MEDS: PRENATAL VITAMINS W/ FOLIC ACID TABLET (FP) PO SCH (10:30)
[2020-02-01] MEDS: PANTOPRAZOLE 40 MG TABLET PO SCH (10:30)
[2020-02-01] MEDS: METHYL SALICYLATE/MENTHOL OINT 30 GM TUBE TP SCH ×2 (10:30→23:37)
[2020-02-01] MEDS: IBUPROFEN 600 MG TABLET (FP) PO PRN ×2 (12:27→22:13)
[2020-02-01] MEDS: ACETAMINOPHEN 325 MG TABLET (FP) PO PRN (15:13)
[2020-02-01] MEDS: THIAMINE HCL 100 MG TABLET (FP) PO SCH (22:13)
[2020-02-01] MEDS: OLANZapine 10 MG TABLET PO SCH (22:13)
[2020-02-01] MEDS: MELATONIN 5 MG TABLETS PO PRN (22:14)
[2020-02-02] MEDS: chlordiazePOXIDE HCL 10 MG CAPSULE PO SCH ×2 (05:54→18:06)
[2020-02-02] MEDS: PRENATAL VITAMINS W/ FOLIC ACID TABLET (FP) PO SCH (10:26)
[2020-02-02] MEDS: METHYL SALICYLATE/MENTHOL OINT 30 GM TUBE TP SCH ×2 (10:26→23:21)
[2020-02-02] MEDS: PANTOPRAZOLE 40 MG TABLET PO SCH (10:26)
[2020-02-02] MEDS: ASPIRIN 81 MG CHEWABLE TABLETS PO SCH (10:26)
--- NOTE | 2020-02-02 15:00 | PN ---
[facility] CIWA - CIWA Score Nausea/Vomitin-No Nausea/No Vomiting Muscle Tremors: None Anxiety: 2 Agitation: 1-Slight > Activity Paroxysmal Sweats: 1-Minimal Palms Moist Orientation: 0-Oriented Tacttile Disturbances: 0-None Auditory Disturbances: 0-None Visual Disturbances: 0-None Headache: 0-None Present CIWA-Ar Total Score: 4 BHS Progress Note (SOAP) Subjective: Complaints of mild anxiety and sweats. Objective: 02/02/20 14:58 Vital Signs 02/02/20 09:20 Temperature 96.9 F L Pulse Rate 67 Respiratory 20 Rate Blood Pressure 147/85 O2 Sat by Pulse 97 Oximetry (%) Laboratory Last Values WBC 2.4 K/mm3 (4.0-10.0) L 01/30/20 08:30 RBC 3.98 M/mm3 (4.00-5.60) L 01/30/20 08:30 Hgb 12.2 GM/dL (11.7-16.9) 01/30/20 08:30 Hct 37.1 % (35.4-49) 01/30/20 08:30 MCV 93.2 fl (80-96) 01/30/20 08:30 MCH 30.7 pg (25.7-33.7) 01/30/20 08:30 MCHC 32.9 g/dl (32.0-35.9) 01/30/20 08:30 RDW 13.8 % (11.9-15.9) 01/30/20 08:30 Plt Count 130 K/MM3 (134-434) L 01/30/20 08:30 MPV 9.2 fl (7.5-11.1) D 01/30/20 08:30 Sodium 138 mmol/L (136-145) 01/30/20 08:30 Potassium 4.5 mmol/L (3.5-5.1) 01/30/20 08:30 Chloride 103 mmol/L (98-107) 01/30/20 08:30 Carbon Dioxide 27 mmol/L (21-32) 01/30/20 08:30 Anion Gap 8 MMOL/L (8-16) 01/30/20 08:30 BUN 10.4 mg/dL (7-18) 01/30/20 08:30 Creatinine 0.7 mg/dL (0.55-1.3) 01/30/20 08:30 Est GFR (CKD-EPI)AfAm 119.72 01/30/20 08:30 Est GFR (CKD-EPI)NonAf 103.30 01/30/20 08:30 Random Glucose 74 mg/dL (74-106) 01/30/20 08:30 Calcium 9.1 mg/dL (8.5-10.1) 01/30/20 08:30 Total Bilirubin 1.1 mg/dL (0.2-1) H 01/30/20 08:30 AST 57 U/L (15-37) H 01/30/20 08:30 ALT 45 U/L (13-61) 01/30/20 08:30 Alkaline Phosphatase 93 U/L (45-117) 01/30/20 08:30 Total Protein 7.5 g/dl (6.4-8.2) 01/30/20 08:30 Albumin 3.9 g/dl (3.4-5.0) 01/30/20 08:30 Syphilis Serology Non-reactive (NONREACTIVE) 01/29/20 08:30 COVID-19 (TIMOTEO) Not detected (Not Detected) 01/29/20 22:00 Labs noted. Assessment: 02/02/20 14:59 Alert and oriented x 3, in no acute respiratory distress. Full ROM, ambulating in the unit without assistance. Very mild withdrawal symptoms. For discharge in AM Plan: Continue detox protocol. Discharge in AM, prescriptions sent to patient preferred pharmacy.
[2020-02-02] MEDS: OLANZapine 10 MG TABLET PO SCH (22:03)
[2020-02-02] MEDS: THIAMINE HCL 100 MG TABLET (FP) PO SCH (22:04)
[2020-02-02] MEDS: MELATONIN 5 MG TABLETS PO PRN (22:04)
[2020-02-02] MEDS: IBUPROFEN 600 MG TABLET (FP) PO PRN (22:04)
[2020-02-03] MEDS ORDERED: chlordiazePOXIDE HCL 10 MG CAPSULE PO ONE (05:00)
[2020-02-03] MEDS: IBUPROFEN 600 MG TABLET (FP) PO PRN (06:05)
[2020-02-03 06:35] VITALS: BP 121/70; PULSE 51; TEMP 97.3
--- NOTE | 2020-02-03 09:50 | DS ---
[facility] Detox Discharge Summary Admission Date: 01/29/20 Discharge Date: 02/03/20 - History Present History: Alcohol Dependence, Cannabis Dependence Additional Comments: Patient was seen and examined at bedside, alert and oriented x3, in no acute respiratory distress. Full ROM, ambulating without assistance. Skin warm to touch, no lesions noted. Detox protocol completed, patient stable for discharge today. Pertinent Past History: History of COPD, left knee surgery, alcohol, nicotine and cannabis use disorder. - Physical Exam Results Vital Signs: Vital Signs Temperature 97.3 F L 02/03/20 05:50 Pulse Rate 51 L 02/03/20 05:50 Respiratory Rate 16 02/03/20 05:50 Blood Pressure 121/70 02/03/20 05:50 O2 Sat by Pulse Oximetry (%) 98 02/03/20 05:50 Vital Signs 02/03/20 05:50 Temperature 97.3 F L Pulse Rate 51 L Respiratory 16 Rate Blood Pressure 121/70 O2 Sat by Pulse 98 Oximetry (%) Laboratory Last Values WBC 2.4 K/mm3 (4.0-10.0) L 01/30/20 08:30 RBC 3.98 M/mm3 (4.00-5.60) L 01/30/20 08:30 Hgb 12.2 GM/dL (11.7-16.9) 01/30/20 08:30 Hct 37.1 % (35.4-49) 01/30/20 08:30 MCV 93.2 fl (80-96) 01/30/20 08:30 MCH 30.7 pg (25.7-33.7) 01/30/20 08:30 MCHC 32.9 g/dl (32.0-35.9) 01/30/20 08:30 RDW 13.8 % (11.9-15.9) 01/30/20 08:30 Plt Count 130 K/MM3 (134-434) L 01/30/20 08:30 MPV 9.2 fl (7.5-11.1) D 01/30/20 08:30 Sodium 138 mmol/L (136-145) 01/30/20 08:30 Potassium 4.5 mmol/L (3.5-5.1) 01/30/20 08:30 Chloride 103 mmol/L (98-107) 01/30/20 08:30 Carbon Dioxide 27 mmol/L (21-32) 01/30/20 08:30 Anion Gap 8 MMOL/L (8-16) 01/30/20 08:30 BUN 10.4 mg/dL (7-18) 01/30/20 08:30 Creatinine 0.7 mg/dL (0.55-1.3) 01/30/20 08:30 Est GFR (CKD-EPI)AfAm 119.72 01/30/20 08:30 Est GFR (CKD-EPI)NonAf 103.30 01/30/20 08:30 Random Glucose 74 mg/dL (74-106) 01/30/20 08:30 Calcium 9.1 mg/dL (8.5-10.1) 01/30/20 08:30 Total Bilirubin 1.1 mg/dL (0.2-1) H 01/30/20 08:30 AST 57 U/L (15-37) H 01/30/20 08:30 ALT 45 U/L (13-61) 01/30/20 08:30 Alkaline Phosphatase 93 U/L (45-117) 01/30/20 08:30 Total Protein 7.5 g/dl (6.4-8.2) 01/30/20 08:30 Albumin 3.9 g/dl (3.4-5.0) 01/30/20 08:30 Syphilis Serology Non-reactive (NONREACTIVE) 01/29/20 08:30 COVID-19 (TIMOTEO) Not detected (Not Detected) 01/29/20 22:00 Labs noted. Pertinent Admission Physical Exam Findings: Withdrawal symptoms. - Treatment Hospital Course: Detox Protocol Followed, Detoxed Safely, Responded well, Discharged Condition Good - Medication Discharge Medications: Ambulatory Orders Gabapentin [Neurontin] 300 mg PO BID #28 capsule 01/10/19 Olanzapine [ZyPREXA -] 10 mg PO HS #30 tablet 08/13/19 Ibuprofen [Motrin -] 600 mg PO Q6H PRN #90 tablet 01/31/20 Aspirin [ASA -] 81 mg PO DAILY #30 tab.chew 02/02/20 Pantoprazole Sodium [Protonix -] 40 mg PO DAILY #30 tablet.ec 02/02/20 - Diagnosis (1) Alcohol intoxication Current Visit: Yes Status: Acute Qualifiers: Complication of substance-induced condition: uncomplicated Qualified Code(s): F10.920 - Alcohol use, unspecified with intoxication, uncomplicated (2) COPD (chronic obstructive pulmonary disease) Current Visit: Yes Status: Chronic (3) cannabis dependence Current Visit: No Status: Chronic (4) Alcohol dependence Current Visit: No Status: Chronic Qualifiers: Substance use status: in withdrawal Complication of substance-induced condition: uncomplicated Qualified Code(s): F10.230 - Alcohol dependence with withdrawal, uncomplicated (5) Nicotine dependence Current Visit: No Status: Chronic Qualifiers: Nicotine product type: cigarettes Substance use status: uncomplicated Qualified Code(s): F17.210 - Nicotine dependence, cigarettes, uncomplicated - AMA Did Patient Leave Against Medical Advice: No
== END 2020-02-03 09:11 | disposition home or self-care (01) | DRG 775 ==
LOC: YASAS 18:34 → Y6N 20:54
PROVIDERS: ADMIT Allergy & Immunology; ATTEND Allergy & Immunology
PROC: HZ2ZZZZ Detoxification Services for Substance Abuse Treatment (ICD-10-PCS; principal; 2020-01-29)
DX: F10.230 Alcohol dependence with withdrawal, uncomplicated (principal); F10.220 Alcohol dependence with intoxication, uncomplicated; F12.20 Cannabis dependence, uncomplicated; F17.210 Nicotine dependence, cigarettes, uncomplicated; F25.9 Schizoaffective disorder, unspecified; F32.9 Major depressive disorder, single episode, unspecified; F19.282 Other psychoactive substance dependence with psychoactive substance-induced sleep disorder; J44.9 Chronic obstructive pulmonary disease, unspecified; M17.12 Unilateral primary osteoarthritis, left knee; M10.9 Gout, unspecified; H91.92 Unspecified hearing loss, left ear; Z86.2 Personal history of diseases of the blood and blood-forming organs and certain disorders involving the immune mechanism; Z56.0 Unemployment, unspecified; Z59.0 Homelessness; R73.03 Prediabetes
CPT/HCPCS: 36415; 71045-TC-FY; 71111-TC-FY; 80053; 85027; 86780; U0003

== ENCOUNTER 2020-02-17 16:37 | Emergency (ER) | payer OTHER ==
[2020-02-17 16:42] VITALS: BP 140/80; PULSE 88; TEMP 98.6; BMI 25.0
--- NOTE | 2020-02-17 16:50 | PDOC ---
History of Present Illness - General Chief Complaint: Alcohol intoxication Stated Complaint: INTOX Time Seen by Provider: 02/17/20 16:44 History Source: Patient Exam Limitations: No Limitations - History of Present Illness Initial Comments: 02/17/20 16:50 59y M with PMH of alcohol dependence presenting to the ER for intoxication. Pt states he was at another facility because his body was shutting down and was "not treated there". Police was called with EMS and patient was brought here. No aggressive behavior noted by EMS. He currently denies chest pain, sob, headache, back pain, fever, abdominal pain, n/v/d. He says he drank "a few beers" earlier today. Denies SI/HI Past History - Medical History Allergies/Adverse Reactions: Allergies Allergy/AdvReac Type Severity Reaction Status Date / Time No Known Allergies Allergy Verified 02/17/20 16:39 Home Medications: Ambulatory Orders Gabapentin [Neurontin] 300 mg PO BID #28 capsule 01/10/19 Olanzapine [ZyPREXA -] 10 mg PO HS #30 tablet 08/13/19 Ibuprofen [Motrin -] 600 mg PO Q6H PRN #90 tablet 01/31/20 Aspirin [ASA -] 81 mg PO DAILY #30 tab.chew 02/02/20 Pantoprazole Sodium [Protonix -] 40 mg PO DAILY #30 tablet.ec 02/02/20 Anemia: No Asthma: No Cancer: No Cardiac Disorders: No CVA: No COPD: No CHF: No Dementia: No Diabetes: Yes GI Disorders: No Disorders: No HTN: No Hypercholesterolemia: No Kidney Stones: No Liver Disease: No Psychiatric Problems: Yes (Depression, schizophrenia) Seizures: No Thyroid Disease: No - Surgical History Abdominal Surgery: No Appendectomy: No Cardiac Surgery: No Cholecystectomy: No Lung Surgery: No Neurologic Surgery: No Orthopedic Surgery: Yes (LEFT KNEE SURGERY 1984) - Reproductive History Testicular Surgery: No - Immunization History Td Vaccination: Yes TDAP Vaccination: Yes Immunization Up to Date: No - Psycho-Social/Smoking History Smoking Status: Yes Smoking History: Current every day smoker Have you smoked in the past 12 months: Yes Number of Cigarettes Smoked Daily: 2 Cigars Per Day: 1 Information on smoking cessation initiated: No 'Breaking Loose' booklet given: 12/11/19 - Substance Abuse Hx (Audit-C & DAST Scrn) How often the patient has a drink containing alcohol: 4 0r more times/wk Number of drinks the patient has on a typical day: 5 or 6 How often the patient has six or more drinks on one occasion: Daily or almost daily Score: In Men: 4 or > Positive; In Women: 3 or > Positive: 10 Screen Result (Pos requires Nsg. Audit-10AR): Positive In the last yr the pt used illegal drug/Rx for NonMed reason: No Score: Yes response is considered Positive: 0 Screen Result (Positive result requires Nsg. DAST-10): Negative *Physical Exam - Vital Signs Last Vital Signs Temp Pulse Resp BP Pulse Ox 98.6 F 88 20 140/80 100 02/17/20 16:40 02/17/20 16:40 02/17/20 16:40 02/17/20 16:40 02/17/20 16:40 - Physical Exam General Appearance: Yes: Nourished, Appropriately Dressed. No: Apparent Distress HEENT: positive: EOMI, MISSY, Normal ENT Inspection Neck: positive: Trachea midline, Supple Respiratory/Chest: positive: Lungs Clear, Normal Breath Sounds. negative: Rhonchi, Stridor Cardiovascular: positive: Regular Rhythm, Regular Rate, S1, S2. negative: Edema, JVD, Murmur Gastrointestinal/Abdominal: positive: Normal Bowel Sounds, Soft. 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 clinically sober. no nystagmus, slurred speech, can ambulate ekg: nsr at 82bpm. no nikhil or depressions. twi in V1-V2 no signs of acute ischemia. bgm 91. will dc 02/17/20 19:17 Discharge - Discharge Information Problems reviewed: Yes Clinical Impression/Diagnosis: Alcohol intoxication Qualifiers: Complication of substance-induced condition: uncomplicated Qualified Code(s): F10.920 - Alcohol use, unspecified with intoxication, uncomplicated Condition: Good Disposition: HOME - Admission No - Follow up/Referral - Patient Discharge Instructions Patient Printed Discharge Instructions: DI for Alcohol Abuse Additional Instructions: Please go to [facility] if you are interested in Detox. Return to the ER if you have vomiting, if you pass out, or if any new or concerning symptom develops. - Post Discharge Activity
== END 2020-02-17 17:02 | disposition home or self-care (01) ==
LOC: JER 16:37
DX: F10.920 Alcohol use, unspecified with intoxication, uncomplicated (principal)
CPT/HCPCS: 82962; 99283-25

== ENCOUNTER 2020-02-18 01:16 | Emergency (ER) | payer OTHER ==
[2020-02-18 01:22] VITALS: BMI 23.3
--- NOTE | 2020-02-18 02:11 | PDOC ---
History of Present Illness - General Chief Complaint: Alcohol intoxication Stated Complaint: INTOX Time Seen by Provider: 02/18/20 02:10 History Source: Patient - History of Present Illness Initial Comments: 02/18/20 07:03 Pt comes with alcohol intox. He has been to detox last month and he doesnt want to go back. He has some tingling in his fingers and states that he is not eating well. Is this a multiple visit Asthma Patient?: Yes Past History - Travel History Traveled outside of the country in the last 30 days: No Close contact w/someone who was outside of country & ill: No - Medical History Allergies/Adverse Reactions: Allergies Allergy/AdvReac Type Severity Reaction Status Date / Time No Known Allergies Allergy Verified 02/18/20 01:22 Home Medications: Ambulatory Orders Gabapentin [Neurontin] 300 mg PO BID #28 capsule 01/10/19 Olanzapine [ZyPREXA -] 10 mg PO HS #30 tablet 08/13/19 Ibuprofen [Motrin -] 600 mg PO Q6H PRN #90 tablet 01/31/20 Aspirin [ASA -] 81 mg PO DAILY #30 tab.chew 02/02/20 Pantoprazole Sodium [Protonix -] 40 mg PO DAILY #30 tablet.ec 02/02/20 Anemia: No Asthma: No Cancer: No Cardiac Disorders: No CVA: No COPD: No CHF: No Dementia: No Diabetes: Yes GI Disorders: No Disorders: No HTN: No Hypercholesterolemia: No Kidney Stones: No Liver Disease: No Psychiatric Problems: Yes (Depression, schizophrenia) Seizures: No Thyroid Disease: No - Surgical History Abdominal Surgery: No Appendectomy: No Cardiac Surgery: No Cholecystectomy: No Lung Surgery: No Neurologic Surgery: No Orthopedic Surgery: Yes (LEFT KNEE SURGERY 1984) - Reproductive History Testicular Surgery: No - Immunization History Td Vaccination: Yes TDAP Vaccination: Yes Immunization Up to Date: No - Psycho-Social/Smoking History Smoking Status: Yes Smoking History: Current every day smoker Have you smoked in the past 12 months: Yes Number of Cigarettes Smoked Daily: 12 Cigars Per Day: 1 Information on smoking cessation initiated: No 'Breaking Loose' booklet given: 12/11/19 - Substance Abuse Hx (Audit-C & DAST Scrn) How often the patient has a drink containing alcohol: 2-4 times / month Number of drinks the patient has on a typical day: 5 or 6 How often the patient has six or more drinks on one occasion: Daily or almost daily Score: In Men: 4 or > Positive; In Women: 3 or > Positive: 8 Screen Result (Pos requires Nsg. Audit-10AR): Positive In the last yr the pt used illegal drug/Rx for NonMed reason: No Score: Yes response is considered Positive: 0 Screen Result (Positive result requires Nsg. DAST-10): Negative Review of Systems - Review of Systems Constitutional: Yes: Loss of Appetite. No: Symptoms Reported, See HPI, Chills, Diaphoresis, Fever, Malaise, Night Sweats, Weakness, Weight Stable, Unintentional Wgt. Loss, Unexplained wgt Loss, Other HEENTM: No: Symptoms Reported, See HPI, Eye Pain, Blurred Vision, Tearing, Recent change in vision, Double Vision, Cataracts, Ear Pain, Ocular Prothesis, Ear Discharge, Nose Pain, Nose Congestion, Tinnitus, Nose Bleeding, Hearing Loss, Throat Pain, Throat Swelling, Mouth Pain, Dental Problems, Difficulty Swallowing, Mouth Swelling, Other Cardiac (ROS): No: Symptoms Reported, See HPI, Chest Pain, Edema, Irregular Heart Rate, Lightheadedness, Palpitations, Syncope, Chest Tightness, Other ABD/GI: No: Symptoms Reported, See HPI, Abdominal Distended, Abd. Pain w/ defecation, Blood Streaked Bowels, Constipated, Diarrhea, Difficulty Swallowing, Nausea, Poor Appetite, Poor Fluid Intake, Rectal Bleeding, Vomiting, In digestion, Abdominal cramping, Tarry Stools, Other : No: Symptoms Reported, See HPI, Burning, Dysuria, Discharge, Frequency, Flank Pain, Hematuria, Incontinence, Pain, Urgency, Testicular Mass, Testicular Swelling, Lesions, Testicular Pain, Other Musculoskeletal: No: Symptoms Reported, See HPI, Back Pain, Gout, Joint Pain, Joint Swelling, Muscle Pain, Muscle Weakness, Neck Pain, Joint Stiffness, Other Integumentary: Yes: Erythema. No: Symptoms Reported, See HPI, Bruising, Change in Color, Change in Hair/Nails, Dryness, Flushing, Lesions, Lumps, Pallor, Pruritus, Rash, Sweating, Other Psychiatric: Yes: Other (alcohol abuser) *Physical Exam - Vital Signs Last Vital Signs Temp Pulse Resp BP Pulse Ox 97.9 F 85 20 156/98 100 02/18/20 01:20 02/18/20 01:20 02/18/20 01:20 02/18/20 01:20 02/18/20 01:20 Medical Decision Making - Medical Decision Making 02/18/20 07:02 PE: 02/17/20 21:47 GENERAL: Awake, drunk/alcohol intox HEAD: No signs of trauma EYES: PERRLA, EOMI, sclera anicteric, conjunctiva clear ENT: Auricles normal inspection, hearing grossly normal, nares patent, oropharynx clear without exudates. Moist mucosa NECK: Normal ROM, supple, no lymphadenopathy, JVD, or masses LUNGS: Breath sounds equal, clear to auscultation bilaterally. No wheezes, and no crackles HEART: Regular rate and rhythm, normal S1 and S2, no murmurs, rubs or gallops ABDOMEN: Soft, nontender, normoactive bowel sounds. No guarding, no rebound. No masses EXTREMITIES: Normal range of motion, no edema. No clubbing or cyanosis. No cor ds, erythema, or tenderness NEUROLOGICAL: Cranial nerves II through XII grossly intact. Normal speech SKIN: Warm, Dry, normal turgor, no rashes or lesions noted; erythema of his skin 02/18/20 07:05 Pt will be signed out to the daytime ER docs. Discharge - Discharge Information Problems reviewed: Yes Clinical Impression/Diagnosis: Alcohol dependence with uncomplicated withdrawal - Follow up/Referral - Patient Discharge Instructions - Post Discharge Activity
[2020-02-18] MEDS ORDERED: FOLIC ACID INJECTION - 1 MG, THIAMINE HCL 100 MG, MULTIVIT INJECTION ADULT 10 ML in SOD... IVPB ONE (02:21)
[2020-02-18 08:21] VITALS: BP 113/70; PULSE 89; TEMP 98.1
--- NOTE | 2020-02-18 09:15 | PDOC ---
*Physical Exam - Vital Signs Last Vital Signs Temp Pulse Resp BP Pulse Ox 98.1 F 89 18 113/70 100 02/18/20 07:30 02/18/20 07:30 02/18/20 07:30 02/18/20 07:30 02/18/20 07:30 - Physical Exam 02/18/20 09:12 02/18/20 09:15 02/18/20 09:15 awake alert lungs clear bilat heart rrr no mrg. speech clear. amulating no difficulty. Medical Decision Making - Medical Decision Making 02/18/20 09:15 59 yo male h/o etoh abuse, here overnight seen for etoh intoxication. was c/o tingling in his finger tips, so given bananbag over night. pt now awake requesting to leave. states he is taking bus to his sisters house. feels good, tolerated PO. received IVF. dc to home, ambulating without difficulty. Discharge - Discharge Information Problems reviewed: Yes Clinical Impression/Diagnosis: Alcohol dependence with uncomplicated withdrawal Condition: Improved Disposition: HOME - Admission No - Follow up/Referral - Patient Discharge Instructions Patient Printed Discharge Instructions: DI for Alcohol Abuse Additional Instructions: you should avoid heavy alcohol intake. return for any problems or concerns. follow up with your primary doctor. if you would like detox, you can go to [facility] [address] [place] [address]. - Post Discharge Activity
== END 2020-02-18 09:28 | disposition home or self-care (01) ==
LOC: JER 01:16
PROC: 3E033GC Introduction of Other Therapeutic Substance into Peripheral Vein, Percutaneous Approach (ICD-10-PCS; principal; 2020-02-18)
DX: F10.239 Alcohol dependence with withdrawal, unspecified (principal)
CPT/HCPCS: 99284-25

== ENCOUNTER 2020-03-09 19:37 | Emergency (ER) | payer OTHER ==
[2020-03-09 19:44] VITALS: BMI 21.9
--- OUTSIDE RECORDS SUMMARY | 2020-03-09 20:04 | XMS ---
:1960 Author Organization [facility] Care Team Providers Name Role Phone ED STAFF PHYSICIAN Unavailable Unavailable ED STAFF PHYSICIANCHRISS Unavailable Unavailable ED STAFF PHYSICIAN Unavailable Unavailable ANDREW Ulrich Unavailable Unavailable RHONDA PONCE Unavailable Unavailable ED STAFF PHYSICIAN, STAFF Unavailable Unavailable ED STAFF PHYSICIAN Unavailable Unavailable ED STAFF PHYSICIAN Unavailable Unavailable ED STAFF PHYSICIANZAMZAM Unavailable Unavailable [id number] Unavailable Unavailable ED STAFF PHYSICIAN Unavailable Unavailable Re-disclosure Warning The records that you are about to access may contain information from federally- assisted alcohol or drug abuse programs. If such information is present, then the following federally mandated warning applies: This information has been disclosed to you from records protected by federal confidentiality rules (42 CFR part 2). The federal rules prohibit you from making any further disclosure of this information unless further disclosure is expressly permitted by the written consent of the person to whom it pertains or as otherwise permitted by 42 CFR part 2. A general authorization for the release of medical or other information is NOT sufficient for this purpose. The Federal rules restrict any use of the information to criminally investigate or prosecute any alcohol or drug abuse patient.The records that you are about to access may contain highly sensitive health information, the redisclosure of which is protected by Article 27-F of the [facility] Public Health law. If you continue you may haveaccess to information: Regarding HIV / AIDS; Provided by facilities licensed or operated by the [facility] Office of Mental Health; or Provided by the [facility] Office for People With Developmental Disabilities. If such information is present, then the following [facility] mandated warning applies: This information has been disclosed to you from confidential records which are protected by state law. State law prohibits you from making any further disclosure of this information without the specific written consent of the person to whom it pertains, or as otherwise permitted by law. Any unauthorized further disclosure in violation of state law may result in a fine or care home sentence or both. A general authorization for the release of medical or other information is NOT sufficient authorization for further disclosure. Allergies and Adverse Reactions Type Description Substance Reaction Status Data Source(s ) Drug allergy No Known Drug No Known Drug [facility] Allergies Allergies [facility] Encounters Encounter Providers Location Date Indications Data Source(s ) Emergency Attender: STAFF ED H-ER 03/09/2020 [facility] STAFF 04:36:00 PM EDT Medical C enter PHYSICIANAdmitter: STAFF ED STAFF PHYSICIANReferrer: STAFF ED STAFF PHYSICIAN Emergency Attender: ED STAFF H 03/01/2020 [facility] PHYSICIANAttender: 05:48:00 [facility] STAFF - 03/01/2020 PHYSICIANAdmitter: 09:25:00 PM EDT ED STAFF PHYSICIANReferrer: STAFF ED STAFF PHYSICIAN Patient discharged. Emergency Attender: ED STAFF 02/24/2020 05:55:00 PM [facility] PHYSICIANAttender: STAFF ED EDT - 02/24/2020 [facility] STAFF PHYSICIANAdmitter: ED 10:42:00 PM EDT STAFF PHYSICIANReferrer: STAFF ED STAFF PHYSICIAN Patient discharged. Emergency Attender: ED STAFF H 02/20/2020 09:36:00 PM [facility] PHYSICIANAttender: STAFF ED EDT - 02/21/2020 [facility] STAFF PHYSICIANAdmitter: ED 07:13:00 AM EDT STAFF PHYSICIAN Patient discharged. Emergency Attender: ED STAFF H 02/18/2020 10:18:00 PM [facility] PHYSICIANAttender: ED STAFF EDT - 02/18/2020 [facility] PHYSICIANAttender: STAFF ED 11:23:00 PM EDT STAFF PHYSICIANAdmitter: ED STAFF PHYSICIAN Patient discharged. Emergency Attender: ED STAFF H 02/18/2020 03:32:00 PM [facility] PHYSICIANAttender: STAFF ED EDT - 02/18/2020 [facility] STAFF PHYSICIANAdmitter: ED 11:24:00 PM EDT STAFF PHYSICIANReferrer: STAFF ED STAFF PHYSICIAN Patient discharged. Emergency Attender: ZAMZAM ED STAFF H 02/17/2020 03:33:00 PM [facility] PHYSICIANAttender: STAFF ED EDT - 02/17/2020 [facility] STAFF PHYSICIANAdmitter: ZAMZAM 04:36:00 PM EDT ED STAFF PHYSICIANReferrer: STAFF ED STAFF PHYSICIAN Patient discharged. Emergency Attender: ZAMZAM ED STAFF H 02/15/2020 02:57:00 PM [facility] PHYSICIANAttender: STAFF ED EDT - 02/15/2020 [facility] STAFF PHYSICIANAdmitter: ZAMZAM 06:44:00 PM EDT ED STAFF PHYSICIAN Patient discharged. Emergency Attender: ZAMZAM ED STAFF 01/29/2020 04:10:00 PM [facility] PHYSICIANAttender: STAFF ED EDT - 01/29/2020 [facility] STAFF PHYSICIANAdmitter: ZAMZAM 05:19:00 PM EDT ED STAFF PHYSICIAN Patient discharged. Emergency Attender: STAFF ED STAFF 01/12/2020 05:43:00 PM [facility] PHYSICIANReferrer: STAFF ED EDT - 01/12/2020 [facility] STAFF PHYSICIAN 08:26:00 PM EDT Patient discharged. Emergency Attender: ZAMZAM ED STAFF 01/10/2020 04:39:00 PM [facility] PHYSICIANAttender: STAFF ED EDT - 01/10/2020 [facility] STAFF PHYSICIANAdmitter: ZAMZAM 09:11:00 PM EDT ED STAFF PHYSICIAN Patient discharged. Emergency Attender: STAFF ED STAFF 12/26/2019 10:55:00 PM [facility] Medical PHYSICIAN EDT - 12/27/2019 03:29:00 Center AM EDT Patient discharged. Emergency Attender: CHRISS ED STAFF 12/25/2019 02:01:00 PM [facility] PHYSICIANAttender: STAFF ED EDT - 12/25/2019 [facility] STAFF PHYSICIANAdmitter: 02:29:00 PM EDT [place] ED STAFF PHYSICIAN Patient discharged. Emergency Attender: ZAMZAM ED STAFF 12/20/2019 07:25:00 PM [facility] PHYSICIANAttender: ED STAFF EDT - 12/21/2019 [facility] PHYSICIANAttender: STAFF ED 01:07:00 AM EDT STAFF PHYSICIANAdmitter: ZAMZAM ED STAFF PHYSICIAN Patient discharged. Emergency Attender: ED STAFF H 12/14/2019 10:47:00 AM [facility] PHYSICIANAttender: STAFF ED EDT - 12/14/2019 [facility] STAFF PHYSICIANAdmitter: ED 03:40:00 PM EDT STAFF PHYSICIAN Patient discharged. Emergency Attender: ZAMZAM ED STAFF H 12/11/2019 07:57:00 PM [facility] PHYSICIANAttender: STAFF ED EDT - 12/11/2019 [facility] STAFF PHYSICIANAdmitter: ZAMZAM 10:14:00 PM EDT ED STAFF PHYSICIAN Patient discharged. Emergency Attender: RHONDA HUANG H 12/08/2019 05:19:00 PM [facility] KELIVNEAttender: STAFF ED EDT - 12/08/2019 [facility] STAFF PHYSICIANAdmitter: 06:44:00 PM EDT RHONDA ELLIS Patient discharged. Emergency Attender: STAFF ED STAFF H 11/30/2019 07:50:00 PM [facility] Medical PHYSICIAN EDT - 12/01/2019 12:41:00 Center AM EDT Patient discharged. Emergency Attender: ED STAFF H 11/28/2019 06:37:00 PM [facility] PHYSICIANAttender: STAFF ED EDT - 11/28/2019 [facility] STAFF PHYSICIANAdmitter: ED 10:35:00 PM EDT STAFF PHYSICIAN Patient discharged. Emergency Attender: ZAMZAM ED STAFF H 11/15/2019 05:23:00 PM [facility] PHYSICIANAttender: STAFF ED EDT - 11/15/2019 [facility] STAFF PHYSICIANAdmitter: ZAMZAM 09:35:00 PM EDT ED STAFF PHYSICIAN Patient discharged. Emergency Attender: ED STAFF H 10/22/2019 03:10:00 PM [facility] PHYSICIANAttender: STAFF ED EDT - 10/22/2019 [facility] STAFF PHYSICIANAdmitter: ED 06:05:00 PM EDT STAFF PHYSICIAN Patient discharged. Outpatient Attender: [id number] 07/31/2019 01:13:58 PM [facility] Patient admitted. Emergency Attender: ED STAFF H 07/13/2019 05:47:00 PM [facility] PHYSICIANAttender: ANDREW EST - 07/14/2019 [facility] AUGIE Drew: STAFF ED 06:43:00 AM EST STAFF PHYSICIANAdmitter: ED STAFF PHYSICIAN Patient discharged. Emergency Attender: RHONDA HUANG H 05/11/2019 08:09:00 PM [facility] KELVINEAttender: ED STAFF EST - 05/12/[address] PHYSICIANAttender: STAFF ED 04:36:00 AM EST STAFF PHYSICIANAdmitter: RHONDA ELLIS Patient discharged. Emergency H 04/06/2019 05:58:00 PM EDT - [address] [place] [address] 09:41:00 PM EDT Patient discharged. Emergency H 2019 09:47:00 PM EDT - [address] [place] [address] 03:00:00 PM EDT Patient discharged. Emergency H 2019 02:17:00 PM EDT - [address] [place] [address] 09:58:00 PM EDT Patient discharged. Emergency H 02/28/2019 03:30:00 PM EDT - [address] [place] [address] 06:39:00 PM EDT Patient discharged. Emergency H 02/12/2019 05:18:00 PM EDT - [address] [place] [address] 09:22:00 PM EDT Patient discharged. Emergency H 01/28/2019 12:00:00 AM EDT - [address] [place] [address] 06:45:00 AM EDT Patient discharged. Emergency H 01/23/2019 08:14:00 PM EDT - [address] [place] [address] 01:34:00 AM EDT Patient discharged. Emergency H 12/27/2018 09:32:00 PM EDT [facility] Emergency H 12/25/2018 12:16:00 AM EDT [facility] Emergency H 12/24/2018 05:25:00 PM EDT [facility] Emergency H 12/22/2018 06:33:00 PM EDT [facility] Emergency H 10/03/2018 09:25:00 PM EDT [facility] Emergency H 09/17/2018 07:31:00 PM EDT [facility] Emergency H 09/17/2018 05:10:00 PM EDT [facility] Emergency H 07/27/2018 05:50:00 PM EST [facility] Immunizations Vaccine Date Status Description Data Source(s) Tdap 09/13/2017 08:11:00 PM EDT completed [facility] Medications Medication Brand Start Product Dose Route Administrative Pharmacy St atus Indications Reaction Description Data Name Date Form Instructions Instructions Source(s) Ibuprofen ibupro 1 complet [facility] 600 MG Oral fen ed [facility] Tablet 600 mg Medical ibuprofen Tablet Center 600 mg , Tablet, Ordere Ordered By: d By: mariama Preston s: 1 tablet a, oral every PADire six hours ctions PRN pain : 1 tablet oral every six hours PRN pain Insurance Providers Payer name Policy type Policy ID Covered Covered alliance party's Policy P madison / Coverage alliance party ID relationship to Rice Inf ormation type rice SAW [id number] SP [id number] 600 HEALTH NON CAP SAW CARE W [id number] SAW [id number] SP [id number] 600 HEALTH NON CAP SAW [id number] SP [id number] 600 HEALTH NON CAP MEDICAID [id number] SP [id number] Problems, Conditions, and Diagnoses Code Display Name Description Problem Type Effective Data Dates Source(s) F17.210 Nicotine NICOTINE Diagnosis 03/01/2020 [facility] dependence, DEPENDENCE, 05:48:00 PM Medical cigarettes, CIGARETTES, EDT Center uncomplicated UNCOMPLICATED I10 Essential ESSENTIAL Diagnosis 03/01/2020 [facility] (primary) (PRIMARY) 05:48:00 PM Medical hypertension HYPERTENSION EDT Center R40.2410 Omi coma scale OMI COMA SCALE Diagnosis 0 [facility] score 13-15, SCORE 13-15, 05:48:00 PM Medical unspecified time UNSPECIFIED TIME EDT Ce nter F10.20 Alcohol ALCOHOL Diagnosis 03/01/2020 [facility] dependence, DEPENDENCE, 05:48:00 PM Medical uncomplicated UNCOMPLICATED EDT Center R07.9 Chest pain, CHEST PAIN, Diagnosis 03/01/2020 [place] [facility] unspecified UNSPECIFIED 05:48:00 PM Medical EDT Center Z53.21 Procedure and PROC/TRTMT NOT CRD Diagnosis 02/24/2020 Anurag smith [facility] treatment not OUT D/T PT LV BEF 05:55:00 PM Med ical carried out due to SEEN BY [facility] EDT Center patient leaving [place] prior to being seen by health care provider F10.129 Alcohol abuse with ALCOHOL ABUSE WITH Diagnosis 0 [facility] intoxication, INTOXICATION, 05:55:00 PM Medical unspecified UNSPECIFIED EDT Center Z59.0 Homelessness HOMELESSNESS Diagnosis 02/20/2020 [facility] 09:36:00 PM Medical EDT Center Z53.20 Procedure and PROC/TRTMT NOT CRD Diagnosis 02/17/2020 Anurag nt [facility] treatment not OUT BEC PT 03:33:00 PM Medical carried out DECISION FOR [facility] EDT Center because of REASONS patient's decision for unspecified reasons Z72.0 Tobacco use TOBACCO USE Diagnosis 02/15/2020 [facility] 02:57:00 PM Medical EDT Center F32.9 Major depressive MAJOR DEPRESSIVE Diagnosis 01/12/2020 [facility] disorder, single DISORDER, SINGLE 05:43:00 PM M edical episode, EPISODE, EDT Center unspecified UNSPECIFIED F41.9 Anxiety disorder, ANXIETY DISORDER, Diagnosis 01/12/2020 [facility] unspecified UNSPECIFIED 05:43:00 PM Medical EDT Center R07.89 Other chest pain OTHER CHEST PAIN Diagnosis 12/14/2019 [facility] 10:47:00 AM Medical EDT Center F91.9 Conduct disorder, CONDUCT DISORDER, Diagnosis 11/15/2019 [facility] unspecified UNSPECIFIED 05:23:00 PM Medical EDT Center Y99.9 Unspecified UNSPECIFIED Diagnosis 10/22/2019 [facility] external cause EXTERNAL CAUSE 03:10:00 PM Medic al status STATUS EDT Center Y92.[address] AND Diagnosis 10/22/2019 [place] [address] [place] and [address] the [address] 03:10:[address] of EDT Center occurrence of the external cause Y93.9 Activity, ACTIVITY, Diagnosis 10/22/2019 [facility] unspecified UNSPECIFIED 03:10:00 PM Medical EDT Center W01.0XXA Fall on same level FALL SAME LEV FROM Diagnosis 0 [facility] from slipping, SLIP/TRIP W/O 03:10:00 PM Medica l tripping and STRIKE AGAINST EDT Center stumbling without OBJECT, INIT subsequent striking against object, initial encounter M25.462 Effusion, left EFFUSION, LEFT Diagnosis 10/22/2019 [facility] knee KNEE 03:10:00 PM Medical EDT Center M17.12 Unilateral primary UNILATERAL PRIMARY Diagnosis 0 [facility] osteoarthritis, OSTEOARTHRITIS, 03:10:00 PM Med ical left knee LEFT KNEE EDT Center S93.402A Sprain of SPRAIN OF Diagnosis 10/22/2019 [facility] unspecified UNSPECIFIED 03:10:00 PM Medical ligament of left LIGAMENT OF LEFT EDT Ce nter ankle, initial ANKLE, INIT ENCNTR encounter M25.569 Pain in PAIN IN Diagnosis 10/22/2019 [facility] unspecified knee UNSPECIFIED KNEE 03:10:00 PM M edical EDT Center Z00.00 Encounter for ENCNTR FOR GENERAL Diagnosis 01/28/2019 [facility] general adult ADULT MEDICAL EXAM 12:00:00 AM Il dical medical W/O ABNORMAL EDT Center examination FINDINGS without abnormal findings Results ID Date Data Source HematologyRou.[id number] 02/15/2020 05:09:00 PM EDT [facility] 0400 Name Value Range Interpretation Description Data Sup porting Code Source(s) Document(s ) Hematocrit 41.0-53. Below low normal <content [facility] [Volume 0 styleCode="[employer] Fraction] of ">Hematocrit Medical Blood by </content>37.4 Center Automated count % L<content styleCode="Ital ics"> (41.0-53.0 %)</content> Erythrocytes 4.4-5.9 Below low normal <content [facility] [#/volume] in styleCode="Bold [place] Blood by ">Red Blood Medical Automated count Cell Count Center </content>4.24 MCUMM L<content styleCode="Ital ics"> (4.4-5.9 MCUMM)</content > Leukocytes 4.4-11.0 Below low normal <content [facility] [#/volume] in styleCode="Bold [place] Blood by ">White Blood Medical Automated count Cell Count Center </content>3.86 KCUMM L<content styleCode="Ital ics"> (4.4-11.0 KCUMM)</content > Hemoglobin 13.5-17. Below low normal <content [facility] [Mass/volume] in 5 styleCode="Bold [place] Blood ">Hemoglobin Medical </content>13.2 Center G/DL L<content styleCode="Ital ics"> (13.5-17.5 G/DL)</content> Platelets 130-400 <content [facility] [#/volume] in styleCode="Bold [place] Blood by ">Platelet Medical Automated count Count Center </content>191 KCUMM<content styleCode="Ital ics"> (130-400 KCUMM)</content > Erythrocyte 11.5-14. <content [facility] distribution 5 styleCode="Bold [facility] width [Ratio] by ">Red Cell Medical Automated count Distribution Center Width </content>12.8 %<content styleCode="Ital ics"> (11.5-14.5 %)</content> Erythrocyte mean 32.0-37. <content [facility] corpuscular 0 styleCode="Bold [place] hemoglobin ">Mean Corpus. Medical concentration Hgb Center [Mass/volume] by Concentration Automated count (MCHC) </content>35.3 G/DL<content styleCode="Ital ics"> (32.0-37.0 G/DL)</content> Erythrocyte mean 26.0-34. <content [facility] corpuscular 0 styleCode="Bold [facility] hemoglobin ">Mean Medical [Entitic mass] Corposcular Center by Automated Hemoglobin count </content>31.1 PG<content styleCode="Ital ics"> (26.0-34.0 PG)</content> Erythrocyte mean 80.0-100 <content [facility] corpuscular .0 styleCode="Bold [facility] volume [Entitic ">Mean Medical volume] by Corpuscular Center Automated count Volume </content>88.2 FL<content styleCode="Ital ics"> (80.0-100.0 FL)</content> UNK 0 <content [facility] styleCode="Bold [facility] ">Nucleated Red Medical Blood Cell Center </content>0.0 /100<content styleCode="Ital ics"> (0 /100)</content> UNK 0.0 <content [facility] styleCode="Bold Joshua ">Nucleated Red Medical Blood Cell Center Count </content>0.00 KCUMM<content styleCode="Ital ics"> (0.0 KCUMM)</content > Platelet mean 8.0-11.0 <content [facility] volume [Entitic styleCode="Bold [facility] volume] in Blood ">Mean Platelet Medical by Automated Volume Center count </content>10.5 FL<content styleCode="Ital ics"> (8.0-11.0 FL)</content> ID Date Data Source GFR(Creatinine).[id number] 02/15/2020 05:09:00 PM EDT [facility] 0-0400 Name Value Range Interpretation Code Description Data Alyson rce(s) Supporting Document(s ) UNK > 60 <content [facility] styleCode="Bold"> Medical Cent er EGFR </content>127 GFR<content styleCode="Italic s"> (> 60 GFR)</content> ID Date Data Source [id number] 02/15/2020 05:09:00 PM EDT [facility] Name Value Range Interpretation Description Data Sup porting Code Source(s) Document(s ) Sodium 137-145 <content [facility] [Moles/volume] styleCode="Sera [place] in Serum or d">Sodium Medical Plasma </content>139 Center MEQ/L<content styleCode="Mariama lics"> (137-145 MEQ/L)</conten t> Potassium 3.5-5.3 <content [facility] [Moles/volume] styleCode="Sera [place] in Serum or d">Potassium Medical Plasma </content>4.2 Center MEQ/L<content styleCode="Mariama lics"> (3.5-5.3 MEQ/L)</conten t> Chloride 98-107 <content [facility] [Moles/volume] styleCode="Sera [place] in Serum or d">Chloride Medical Plasma </content>103 Center MEQ/L<content styleCode="Mariama lics"> (98-107 MEQ/L)</conten t> Carbon 22-30 <content [facility] dioxide, total styleCode="Sera [facility] [Moles/volume] d">Carbon Medical in Serum or Dioxide Center Plasma </content>23 MEQ/L<content styleCode="Mraiama lics"> (22-30 MEQ/L)</conten t> UNK 9-20 <content [facility] styleCode="Sera [place] d">BUN Medical </content>14 Center MG/DL<content styleCode="Mariama lics"> (9-20 MG/DL)</conten t> Calcium 8.4-10.2 <content [facility] [Mass/volume] styleCode="Sera [place] in Serum or d">Calcium Medical Plasma </content>9.6 Center MG/DL<content styleCode="Mariama lics"> (8.4-10.2 MG/DL)</conten t> Glucose 74-106 Above high normal <content [facility] [Mass/volume] styleCode="Sera [place] in Serum or d">Glucose Medical Plasma </content>149 Center MG/DL H<content styleCode="Mariama lics"> (74-106 MG/DL)</conten t> UNK > 60 <content [facility] styleCode="Sera [place] d">EGFR Medical </content>127 Center GFR<content styleCode="Mariama lics"> (> 60 GFR)</content> Creatinine 0.5-1.3 <content [facility] [Mass/volume] styleCode="Sera [place] in Serum or d">Creatinine Medical Plasma </content>0.8 Center MG/DL<content styleCode="Mariama lics"> (0.5-1.3 MG/DL)</conten t> ID Date Data Source [id number] 01/29/2020 10:00:00 PM EDT [facility] Name Value Range Interpretation Description Data Sup porting Code Source(s) Document(s ) SARS [facility] coronavirus 2 RNA This lab was ordered by [facility] and reported by [facility]. ID Date Data Source [id number] 12/26/2019 11:00:00 AM EDT [facility] Name Value Range Interpretation Description Data Sup porting Code Source(s) Document(s ) SARS [facility] coronavirus 2 RNA This lab was ordered by [facility] and reported by [facility]. ID Date Data Source Liver 12/14/2019 11:55:00 AM EDT [facility] Profile.[id number] Name Value Range Interpretation Description Data Sup porting Code Source(s) Document(s ) Aspartate 17-59 <content [facility] aminotransferase styleCode="Bold"> Emiliano hs [Enzymatic Aspartate Medical activity/volume] Aminotransferase Center in Serum or Plasma (AST) </content>56 IU/L<content styleCode="Italic s"> (17-59 IU/L)</content> Alkaline 38-126 <content [facility] phosphatase styleCode="Bold"> [facility] [Enzymatic Alkaline Medical activity/volume] Phosphatase (ALP) Cente r in Serum or Plasma </content>79 IU/L<content styleCode="Italic s"> (38-126 IU/L)</content> Bilirubin.total 0.2-1.3 <content [facility] [Mass/volume] in styleCode="Bold"> Emiliano hs Serum or Plasma Bilirubin Total Medical </content>0.7 Center MG/DL<content styleCode="Italic s"> (0.2-1.3 MG/DL)</content> Alanine 7-50 <content [facility] aminotransferase styleCode="Bold"> Emiliano hs [Enzymatic Alanine Medical activity/volume] Aminotransferase Center in Serum or Plasma (ALT) </content>35 IU/L<content styleCode="Italic s"> (7-50 IU/L)</content> Albumin 3.5-5.0 <content [facility] [Mass/volume] in styleCode="Bold"> Emiliano hs Serum or Plasma Albumin Medical </content>4.2 Center G/DL<content styleCode="Italic s"> (3.5-5.0 G/DL)</content> ID Date Data Source HematologyRou.[id number] 12/14/2019 11:55:00 AM EDT Anurag nt [facility] 0400 Name Value Range Interpretation Description Data Sup porting Code Source(s) Document(s ) Erythrocytes 4.4-5.9 Below low normal <content [facility] [#/volume] in styleCode="Bold [place] Blood by ">Red Blood Medical Automated count Cell Count Center </content>4.04 MCUMM L<content styleCode="Ital ics"> (4.4-5.9 MCUMM)</content > Hemoglobin 13.5-17. Below low normal <content [facility] [Mass/volume] in 5 styleCode="Bold [place] Blood ">Hemoglobin Medical </content>12.0 Center G/DL L<content styleCode="Ital ics"> (13.5-17.5 G/DL)</content> Hematocrit 41.0-53. Below low normal <content [facility] [Volume 0 styleCode="Bold [place] Fraction] of ">Hematocrit Medical Blood by </content>34.6 Center Automated count % L<content styleCode="Ital ics"> (41.0-53.0 %)</content> Leukocytes 4.4-11.0 <content [facility] [#/volume] in styleCode="Bold [place] Blood by ">White Blood Medical Automated count Cell Count Center </content>4.84 KCUMM<content styleCode="Ital ics"> (4.4-11.0 KCUMM)</content > Erythrocyte 11.5-14. <content [facility] distribution 5 styleCode="Bold [facility] width [Ratio] by ">Red Cell Medical Automated count Distribution Center Width </content>13.6 %<content styleCode="Ital ics"> (11.5-14.5 %)</content> Erythrocyte mean 80.0-100 <content [facility] corpuscular .0 styleCode="Bold [facility] volume [Entitic ">Mean Medical volume] by Corpuscular Center Automated count Volume </content>85.6 FL<content styleCode="Ital ics"> (80.0-100.0 FL)</content> Erythrocyte mean 32.0-37. <content [facility] corpuscular 0 styleCode="Bold [place] hemoglobin ">Mean Corpus. Medical concentration Hgb Center [Mass/volume] by Concentration Automated count (MCHC) </content>34.7 G/DL<content styleCode="Ital ics"> (32.0-37.0 G/DL)</content> Erythrocyte mean 26.0-34. <content [facility] corpuscular 0 styleCode="Bold Joshua hemoglobin ">Mean Medical [Entitic mass] Corposcular Center by Automated Hemoglobin count </content>29.7 PG<content styleCode="Ital ics"> (26.0-34.0 PG)</content> Neutrophils 36-66 Above high <content [facility] [#/volume] in normal styleCode="Bold Joshua Blood by ">Neutrophil Medical Automated count </content>73.0 Center % H<content styleCode="Ital ics"> (36-66 %)</content> Platelet mean 8.0-11.0 <content [facility] volume [Entitic styleCode="Bold Joshua volume] in Blood ">Mean Platelet Medical by Automated Volume Center count </content>10.0 FL<content styleCode="Ital ics"> (8.0-11.0 FL)</content> UNK 1.6-7.3 <content [facility] styleCode="Bold Joshua ">Neutrophil Medical Count Center </content>3.53 KCUMM<content styleCode="Ital ics"> (1.6-7.3 KCUMM)</content > Platelets 130-400 <content [facility] [#/volume] in styleCode="Bold Joshua Blood by ">Platelet Medical Automated count Count Center </content>178 KCUMM<content styleCode="Ital ics"> (130-400 KCUMM)</content > Lymphocytes 24.0-44. Below low normal <content [facility] [#/volume] in 0 styleCode="Bold Joshua Blood by ">Lymphocyte Medical Automated count </content>15.7 Center % L<content styleCode="Ital ics"> (24.0-44.0 %)</content> UNK 1.0-4.8 Below low normal <content [facility] styleCode="Bold Joshua ">Lymphocyte Medical Count Center </content>0.76 KCUMM L<content styleCode="Ital ics"> (1.0-4.8 KCUMM)</content > Monocytes 3.0-10.0 Above high <content [facility] [#/volume] in normal styleCode="Bold Joshua Blood by ">Monocyte Medical Automated count </content>10.5 Center % H<content styleCode="Ital ics"> (3.0-10.0 %)</content> UNK 0.2-0.9 <content [facility] styleCode="Bold Joshua ">Monocyte Medical Count Center </content>0.51 KCUMM<content styleCode="Ital ics"> (0.2-0.9 KCUMM)</content > Basophils 0.0-1.0 <content [facility] [#/volume] in styleCode="Bold Joshua Blood by ">Basophil Medical Automated count </content>0.4 Center %<content styleCode="Ital ics"> (0.0-1.0 %)</content> Eosinophils 0-5.0 <content [facility] [#/volume] in styleCode="Bold Jsohua Blood by ">Eosinophil Medical Automated count </content>0.2 Center %<content styleCode="Ital ics"> (0-5.0 %)</content> UNK 0.0-0.6 <content [facility] styleCode="Bold Joshua ">Eosinophil Medical Count Center </content>0.01 KCUMM<content styleCode="Ital ics"> (0.0-0.6 KCUMM)</content > UNK 0.0 <content [facility] styleCode="Bold Joshua ">Nucleated Red Medical Blood Cell Center Count </content>0.00 KCUMM<content styleCode="Ital ics"> (0.0 KCUMM)</content > UNK 0.0-0.3 <content [facility] styleCode="Bold Joshua ">Basophil Medical Count Center </content>0.02 KCUMM<content styleCode="Ital ics"> (0.0-0.3 KCUMM)</content > UNK 0 <content [facility] styleCode="Bold Joshua ">Nucleated Red Medical Blood Cell Center </content>0.0 /100<content styleCode="Ital ics"> (0 /100)</content> UNK < 1 <content [facility] styleCode="Bold Joshua ">Immature Medical Granulocyte Center Ratio </content>0.2 %<content styleCode="Ital ics"> (< 1 %)</content> UNK 0-0.1 <content [facility] styleCode="Bold Joshua ">Immature Medical Granulocyte Center Count </content>0.01 KCUMM<content styleCode="Ital ics"> (0-0.1 KCUMM)</content > ID Date Data Source GFR(Creatinine).[id number] 12/14/2019 11:55:00 AM EDT [facility] 0-0400 Name Value Range Interpretation Code Description Data Alyson rce(s) Supporting Document(s ) UNK > 60 <content [facility] styleCode="Bold"> Medical Cent er EGFR </content>177 GFR<content styleCode="Italic s"> (> 60 GFR)</content> ID Date Data Source Coagulation 12/14/2019 11:55:00 AM [facility] Center Rout.[id number] EDT Name Value Range Interpretation Description Data Sup porting Code Source(s) Document(s ) INR in 0.80-1.2 <content [facility] Platelet poor 0 styleCode="Bold" Joshua plasma by >INR Medical Coagulation </content>1.05 Center assay #<content styleCode="Itali cs"> (0.80-1.20 #)</content> UNK 9.0-13.0 <content [facility] styleCode="Bold" Joshua >Protime Medical </content>11.6 Center SEC<content styleCode="Itali cs"> (9.0-13.0 SEC)</content> aPTT in 25.1-36. <content [facility] Platelet poor 5 styleCode="Bold" Joshua plasma by >Partial Medical Coagulation Thromboplastin Center assay Time </content>28.4 SEC<content styleCode="Itali cs"> (25.1-36.5 SEC)</content> ID Date Data Source LORRIMROUTINECCDA.[id number] 12/14/2019 11:55:00 AM EDT [facility] -0400 Name Value Range Interpretation Description Data Sup porting Code Source(s) Document(s ) UNK 2.3-3.5 <content [facility] styleCode="Sera Joshua d">Globulin Medical </content>3.2 Center G/DL<content styleCode="Mariama lics"> (2.3-3.5 G/DL)</content > UNK >= 1.0 <content [facility] styleCode="Sera Joshua d">AG Ratio Medical </content>1.3 Center <content styleCode="Mariama lics"> (>= 1.0 )</content> Magnesium 1.6-2.3 Below low normal <content [facility] [Mass/volume] styleCode="Sera Joshua in Serum or d">Magnesium Medical Plasma </content>1.5 Center MG/DL L<content styleCode="Mariama lics"> (1.6-2.3 MG/DL)</conten t> Natriuretic < 125 <content [facility] peptide.B styleCode="Sera Lawrences prohormone d">NT Pro BNP Medical N-Terminal </content>27.8 Center [Mass/volume] PG/ML<content in Serum or styleCode="Mariama Plasma lics"> (< 125 PG/ML)</conten t> Protein 6.3-8.2 <content [facility] [Mass/volume] styleCode="Sera Joshua in Serum or d">Total Medical Plasma Protein Center </content>7.4 G/DL<content styleCode="Mariama lics"> (6.3-8.2 G/DL)</content > ID Date Data Source [employer].[id number] 12/14/2019 11:55:00 AM EDT [facility] -0400 Name Value Range Interpretation Description Data Sup porting Code Source(s) Document(s ) Troponin < 0.034 <content [facility] I.cardiac styleCode="Bold Joshua [Mass/volume ">Troponin I Medical ] in Serum </content>< Center or Plasma 0.012 NG/ML<content styleCode="Ital ics"> (< 0.034 NG/ML)</content > ID Date Data Source BMP.[id number] 12/14/2019 11:55:00 AM EDT [facility] Name Value Range Interpretation Description Data Sup porting Code Source(s) Document(s ) Sodium 137-145 <content [facility] [Moles/volume] in styleCode="Bold"> [place] [facility] Serum or Plasma Sodium Medical </content>137 Center MEQ/L<content styleCode="Italic s"> (137-145 MEQ/L)</content> Chloride 98-107 <content [facility] [Moles/volume] in styleCode="Bold"> [place] phs Serum or Plasma Chloride Medical </content>103 Center MEQ/L<content styleCode="Italic s"> (98-107 MEQ/L)</content> Potassium 3.5-5.3 <content [facility] [Moles/volume] in styleCode="Bold"> [place] phs Serum or Plasma Potassium Medical </content>4.1 Center MEQ/L<content styleCode="Italic s"> (3.5-5.3 MEQ/L)</content> UNK 9-20 <content [facility] styleCode="Bold"> Joshua BUN </content>10 Medical MG/DL<content Center styleCode="Italic s"> (9-20 MG/DL)</content> Creatinine 0.5-1.3 <content [facility] [Mass/volume] in styleCode="Bold"> Emiliano hs Serum or Plasma Creatinine Medical </content>0.6 Center MG/DL<content styleCode="Italic s"> (0.5-1.3 MG/DL)</content> Glucose 74-106 <content [facility] [Mass/volume] in styleCode="Bold"> Emiliano hs Serum or Plasma Glucose Medical </content>82 Center MG/DL<content styleCode="Italic s"> (74-106 MG/DL)</content> Carbon dioxide, 22-30 <content [facility] total styleCode="Bold"> Joshua [Moles/volume] in Carbon Dioxide Medical Serum or Plasma </content>25 Center MEQ/L<content styleCode="Italic s"> (22-30 MEQ/L)</content> Calcium 8.4-10. <content [facility] [Mass/volume] in 2 styleCode="Bold"> Emiliano hs Serum or Plasma Calcium Medical </content>9.9 Center MG/DL<content styleCode="Italic s"> (8.4-10.2 MG/DL)</content> Alkaline 38-126 <content [facility] phosphatase styleCode="Bold"> Joshua [Enzymatic Alkaline Medical activity/volume] Phosphatase (ALP) Cente r in Serum or Plasma </content>79 IU/L<content styleCode="Italic s"> (38-126 IU/L)</content> Aspartate 17-59 <content [facility] aminotransferase styleCode="Bold"> Emiliano hs [Enzymatic Aspartate Medical activity/volume] Aminotransferase Center in Serum or Plasma (AST) </content>56 IU/L<content styleCode="Italic s"> (17-59 IU/L)</content> Alanine 7-50 <content [facility] aminotransferase styleCode="Bold"> Emiliano hs [Enzymatic Alanine Medical activity/volume] Aminotransferase Center in Serum or Plasma (ALT) </content>35 IU/L<content styleCode="Italic s"> (7-50 IU/L)</content> UNK > 60 <content [facility] styleCode="Bold"> [facility] EGFR Medical </content>177 Center GFR<content styleCode="Italic s"> (> 60 GFR)</content> Albumin 3.5-5.0 <content [facility] [Mass/volume] in styleCode="Bold"> Emiliano hs Serum or Plasma Albumin Medical </content>4.2 Center G/DL<content styleCode="Italic s"> (3.5-5.0 G/DL)</content> Bilirubin.total 0.2-1.3 <content [facility] [Mass/volume] in styleCode="Bold"> Emiliano hs Serum or Plasma Bilirubin Total Medical </content>0.7 Center MG/DL<content styleCode="Italic s"> (0.2-1.3 MG/DL)</content> ID Date Data Source [id number] 12/01/2019 07:20:00 AM EDT [facility] Name Value Range Interpretation Description Data Sup porting Code Source(s) Document(s ) SARS [facility] CORONAVIRUS 2 RNA This lab was ordered by [facility] Arnie Herrera and reported by [facility]. ID Date Data Source CHMROUTINECCDA.[id number] 07/13/2019 06:54:00 PM EST Anurag nt [facility] -0500 Name Value Range Interpretation Description Data Sup porting Code Source(s) Document(s ) Cannabinoids <content Saint [Presence] in styleCode="[facility] Urine by Screen d">Cannabinoid Medical method >50 ng/mL s Center </content>PRES UMPTIVE POSITIVE NG/ML (Reference Range: not available)<br/ > ID Date Data Source HematologyRou.[id number] 07/13/2019 06:51:00 PM ROSEANNE Osborn [facility] 0500 Name Value Range Interpretation Description Data Sup porting Code Source(s) Document(s ) Leukocytes 4.4-11.0 Below low normal <content [facility] [#/volume] in styleCode="Bold Joshua Blood by ">White Blood Medical Automated count Cell Count Center </content>3.37 KCUMM L<content styleCode="Ital ics"> (4.4-11.0 KCUMM)</content > Erythrocytes 4.4-5.9 <content [facility] [#/volume] in styleCode="Bold Joshua Blood by ">Red Blood Medical Automated count Cell Count Center </content>4.56 MCUMM<content styleCode="Ital ics"> (4.4-5.9 MCUMM)</content > Hemoglobin 13.5-17. Below low normal <content [facility] [Mass/volume] in 5 styleCode="Bold Joshua Blood ">Hemoglobin Medical </content>13.1 Center G/DL L<content styleCode="Ital ics"> (13.5-17.5 G/DL)</content> Hematocrit 41.0-53. Below low normal <content [facility] [Volume 0 styleCode="Bold [facility] Fraction] of ">Hematocrit Medical Blood by </content>38.4 Center Automated count % L<content styleCode="Ital ics"> (41.0-53.0 %)</content> Erythrocyte mean 80.0-100 <content [facility] corpuscular .0 styleCode="Bold Joshua volume [Entitic ">Mean Medical volume] by Corpuscular Center Automated count Volume </content>84.2 FL<content styleCode="Ital ics"> (80.0-100.0 FL)</content> Erythrocyte mean 32.0-37. <content [facility] corpuscular 0 styleCode="Bold Joshua hemoglobin ">Mean Corpus. Medical concentration Hgb Center [Mass/volume] by Concentration Automated count (MCHC) </content>34.1 G/DL<content styleCode="Ital ics"> (32.0-37.0 G/DL)</content> Erythrocyte mean 26.0-34. <content [facility] corpuscular 0 styleCode="Bold Joshua hemoglobin ">Mean Medical [Entitic mass] Corposcular Center by Automated Hemoglobin count </content>28.7 PG<content styleCode="Ital ics"> (26.0-34.0 PG)</content> UNK 0.0 <content [facility] styleCode="Bold Joshua ">Nucleated Red Medical Blood Cell Center Count </content>0.00 KCUMM<content styleCode="Ital ics"> (0.0 KCUMM)</content > UNK 0 <content [facility] styleCode="Bold Joshua ">Nucleated Red Medical Blood Cell Center </content>0.0 /100<content styleCode="Ital ics"> (0 /100)</content> Platelets 130-400 <content [facility] [#/volume] in styleCode="Bold Joshua Blood by ">Platelet Medical Automated count Count Center </content>228 KCUMM<content styleCode="Ital ics"> (130-400 KCUMM)</content > Erythrocyte 11.5-14. <content [facility] distribution 5 styleCode="Bold Joshua width [Ratio] by ">Red Cell Medical Automated count Distribution Center Width </content>13.0 %<content styleCode="Ital ics"> (11.5-14.5 %)</content> Platelet mean 8.0-11.0 <content [facility] volume [Entitic styleCode="Bold Joshua volume] in Blood ">Mean Platelet Medical by Automated Volume Center count </content>10.6 FL<content styleCode="Ital ics"> (8.0-11.0 FL)</content> ID Date Data Source GFR(Creatinine).[id number] 07/13/2019 06:51:00 PM EST Anurag [facility] 0-0500 Name Value Range Interpretation Code Description Data Alyson rce(s) Supporting Document(s ) UNK > 60 <content [facility] styleCode="Bold"> Medical Cent er EGFR </content>127 GFR<content styleCode="Italic s"> (> 60 GFR)</content> ID Date Data Source [facility].[id number] 07/13/2019 06:51:00 PM EST [facility] Name Value Range Interpretation Description Data Sup porting Code Source(s) Document(s ) UNK 9-20 Below low normal <content [facility] styleCode="Sera Joshua d">BUN Medical </content>8 Center MG/DL L<content styleCode="Mariama lics"> (9-20 MG/DL)</conten t> Carbon 22-30 Below low normal <content [facility] dioxide, total styleCode="Sera Joshua [Moles/volume] d">Carbon Medical in Serum or Dioxide Center Plasma </content>21 MEQ/L L<content styleCode="Mariama lics"> (22-30 MEQ/L)</conten t> Potassium 3.5-5.3 <content [facility] [Moles/volume] styleCode="Sera Joshua in Serum or d">Potassium Medical Plasma </content>3.7 Center MEQ/L<content styleCode="Mariama lics"> (3.5-5.3 MEQ/L)</conten t> Sodium 137-145 <content [facility] [Moles/volume] styleCode="Sera Joshua in Serum or d">Sodium Medical Plasma </content>139 Center MEQ/L<content styleCode="Mariama lics"> (137-145 MEQ/L)</conten t> Chloride 98-107 <content [facility] [Moles/volume] styleCode="Sera Joshua in Serum or d">Chloride Medical Plasma </content>103 Center MEQ/L<content styleCode="Mariama lics"> (98-107 MEQ/L)</conten t> Creatinine 0.5-1.3 <content [facility] [Mass/volume] styleCode="Sera Joshua in Serum or d">Creatinine Medical Plasma </content>0.8 Center MG/DL<content styleCode="Mariama lics"> (0.5-1.3 MG/DL)</conten t> Calcium 8.4-10.2 <content [facility] [Mass/volume] styleCode="Sera Lawrences in Serum or d">Calcium Medical Plasma </content>9.9 Center MG/DL<content styleCode="Mariama lics"> (8.4-10.2 MG/DL)</conten t> Glucose 74-106 <content [facility] [Mass/volume] styleCode="Sera Lawrences in Serum or d">Glucose Medical Plasma </content>100 Center MG/DL<content styleCode="Mariama lics"> (74-106 MG/DL)</conten t> UNK > 60 <content [facility] styleCode="Sera Lawrences d">EGFR Medical </content>127 Center GFR<content styleCode="Mariama lics"> (> 60 GFR)</content> ID Date Data Source Liver Profile 07/27/2018 07:25:00 PM EST [facility] Name Value Range Interpretation Description Data Sup porting Code Source(s) Document(s ) Aspartate 17-59 <content [facility] aminotransferase styleCode="Bold"> Emiliano hs [Enzymatic Aspartate Medical activity/volume] Aminotransferase Center in Serum or Plasma (AST) </content>58 IU/L<content styleCode="Italic s"> (17-59 IU/L)</content> Bilirubin.total 0.2-1.3 <content [facility] [Mass/volume] in styleCode="Bold"> Emiliano hs Serum or Plasma Bilirubin Total Medical </content>1.2 Center MG/DL<content styleCode="Italic s"> (0.2-1.3 MG/DL)</content> Alanine 7-50 <content [facility] aminotransferase styleCode="Bold"> Emiliano hs [Enzymatic Alanine Medical activity/volume] Aminotransferase Center in Serum or Plasma (ALT) </content>33 IU/L<content styleCode="Italic s"> (7-50 IU/L)</content> Alkaline 38-126 <content [facility] phosphatase styleCode="Bold"> Joshua [Enzymatic Alkaline Medical activity/volume] Phosphatase (ALP) Cente r in Serum or Plasma </content>96 IU/L<content styleCode="Italic s"> (38-126 IU/L)</content> UNK 0.0-0.3 <content [facility] styleCode="Bold"> Joshua Bilirubin, Direct Medical </content>< 0.2 Center MG/DL<content styleCode="Italic s"> (0.0-0.3 MG/DL)</content> Albumin 3.5-5.0 <content [facility] [Mass/volume] in styleCode="Bold"> Emiliano hs Serum or Plasma Albumin Medical </content>4.7 Center G/DL<content styleCode="Italic s"> (3.5-5.0 G/DL)</content> ID Date Data Source HematologyRou 07/27/2018 07:25:00 PM EST [facility] Name Value Range Interpretation Description Data Sup porting Code Source(s) Document(s ) Erythrocytes 4.4-5.9 <content [facility] [#/volume] in styleCode="Bold Joshua Blood by ">Red Blood Medical Automated count Cell Count Center </content>4.65 MCUMM<content styleCode="Ital ics"> (4.4-5.9 MCUMM)</content > Hematocrit 41.0-53. Below low normal <content [facility] [Volume 0 styleCode="Bold Joshua Fraction] of ">Hematocrit Medical Blood by </content>39.4 Center Automated count % L<content styleCode="Ital ics"> (41.0-53.0 %)</content> Hemoglobin 13.5-17. <content [facility] [Mass/volume] in 5 styleCode="Bold Joshua Blood ">Hemoglobin Medical </content>13.5 Center G/DL<content styleCode="Ital ics"> (13.5-17.5 G/DL)</content> Leukocytes 4.4-11.0 Below low normal <content [facility] [#/volume] in styleCode="Bold Joshua Blood by ">White Blood Medical Automated count Cell Count Center </content>3.63 KCUMM L<content styleCode="Ital ics"> (4.4-11.0 KCUMM)</content > Erythrocyte mean 80.0-100 <content [facility] corpuscular .0 styleCode="Bold Joshua volume [Entitic ">Mean Medical volume] by Corpuscular Center Automated count Volume </content>84.7 FL<content styleCode="Ital ics"> (80.0-100.0 FL)</content> Erythrocyte mean 32.0-37. <content [facility] corpuscular 0 styleCode="Bold Joshua hemoglobin ">Mean Corpus. Medical concentration Hgb Center [Mass/volume] by Concentration Automated count (MCHC) </content>34.3 G/DL<content styleCode="Ital ics"> (32.0-37.0 G/DL)</content> Erythrocyte mean 26.0-34. <content [facility] corpuscular 0 styleCode="Bold Joshua hemoglobin ">Mean Medical [Entitic mass] Corposcular Center by Automated Hemoglobin count </content>29.0 PG<content styleCode="Ital ics"> (26.0-34.0 PG)</content> Platelets 130-400 <content [facility] [#/volume] in styleCode="Bold Joshua Blood by ">Platelet Medical Automated count Count Center </content>172 KCUMM<content styleCode="Ital ics"> (130-400 KCUMM)</content > Erythrocyte 11.5-14. <content [facility] distribution 5 styleCode="Bold Joshua width [Ratio] by ">Red Cell Medical Automated count Distribution Center Width </content>12.4 %<content styleCode="Ital ics"> (11.5-14.5 %)</content> UNK 0.0 <content [facility] styleCode="Bold Joshua ">Nucleated Red Medical Blood Cell Center Count </content>0.00 KCUMM<content styleCode="Ital ics"> (0.0 KCUMM)</content > Platelet mean 8.0-11.0 <content [facility] volume [Entitic styleCode="Bold Joshua volume] in Blood ">Mean Platelet Medical by Automated Volume Center count </content>10.6 FL<content styleCode="Ital ics"> (8.0-11.0 FL)</content> UNK 0 <content [facility] styleCode="Bold Joshua ">Nucleated Red Medical Blood Cell Center </content>0.0 /100<content styleCode="Ital ics"> (0 /100)</content> ID Date Data Source GFR(Creatinine) 07/27/2018 07:25:00 PM [facility] Name Value Range Interpretation Code Description Data Alyson rce(s) Supporting Document(s ) UNK > 60 <content [facility] styleCode="Bold"> Medical Cent er EGFR </content>178 GFR<content styleCode="Italic s"> (> 60 GFR)</content> ID Date Data Source BMP 07/27/2018 07:25:00 PM [facility] Name Value Range Interpretation Description Data Sup porting Code Source(s) Document(s ) Sodium 137-145 <content [facility] [Moles/volume] in styleCode="Bold"> [place] [facility] [place] Serum or Plasma Sodium Medical </content>142 Center MEQ/L<content styleCode="Italic s"> (137-145 MEQ/L)</content> Potassium 3.5-5.3 <content Saint [Moles/volume] in styleCode="Bold"> [place] [facility] [place] Serum or Plasma Potassium Medical </content>4.2 Center MEQ/L<content styleCode="Italic s"> (3.5-5.3 MEQ/L)</content> Creatinine 0.5-1.3 <content [facility] [Mass/volume] in styleCode="Bold"> Emiliano hs Serum or Plasma Creatinine Medical </content>0.6 Center MG/DL<content styleCode="Italic s"> (0.5-1.3 MG/DL)</content> Carbon dioxide, 22-30 <content [facility] total styleCode="Bold"> Joshua [Moles/volume] in Carbon Dioxide Medical Serum or Plasma </content>24 Center MEQ/L<content styleCode="Italic s"> (22-30 MEQ/L)</content> UNK 9-20 Below low <content [facility] normal styleCode="Bold"> Joshua BUN </content>8 Medical MG/DL L<content Center styleCode="Italic s"> (9-20 MG/DL)</content> Chloride 98-107 <content [facility] [Moles/volume] in styleCode="Bold"> [place] phs Serum or Plasma Chloride Medical </content>104 Center MEQ/L<content styleCode="Italic s"> (98-107 MEQ/L)</content> UNK > 60 <content [facility] styleCode="Bold"> Joshua EGFR Medical </content>178 Center GFR<content styleCode="Italic s"> (> 60 GFR)</content> Calcium 8.4-10. <content [facility] [Mass/volume] in 2 styleCode="Bold"> Emiliano hs Serum or Plasma Calcium Medical </content>9.5 Center MG/DL<content styleCode="Italic s"> (8.4-10.2 MG/DL)</content> Aspartate 17-59 <content [facility] aminotransferase styleCode="Bold"> Emiliano hs [Enzymatic Aspartate Medical activity/volume] Aminotransferase Center in Serum or Plasma (AST) </content>58 IU/L<content styleCode="Italic s"> (17-59 IU/L)</content> Glucose 74-106 <content [facility] [Mass/volume] in styleCode="Bold"> Emiliano hs Serum or Plasma Glucose Medical </content>101 Center MG/DL<content styleCode="Italic s"> (74-106 MG/DL)</content> Bilirubin.total 0.2-1.3 <content [facility] [Mass/volume] in styleCode="Bold"> Emiliano hs Serum or Plasma Bilirubin Total Medical </content>1.2 Center MG/DL<content styleCode="Italic s"> (0.2-1.3 MG/DL)</content> Alkaline 38-126 <content [facility] phosphatase styleCode="Bold"> Joshua [Enzymatic Alkaline Medical activity/volume] Phosphatase (ALP) Cente r in Serum or Plasma </content>96 IU/L<content styleCode="Italic s"> (38-126 IU/L)</content> Albumin 3.5-5.0 <content [facility] [Mass/volume] in styleCode="Bold"> Emiliano hs Serum or Plasma Albumin Medical </content>4.7 Center G/DL<content styleCode="Italic s"> (3.5-5.0 G/DL)</content> Alanine 7-50 <content [facility] aminotransferase styleCode="Bold"> Emiliano hs [Enzymatic Alanine Medical activity/volume] Aminotransferase Center in Serum or Plasma (ALT) </content>33 IU/L<content styleCode="Italic s"> (7-50 IU/L)</content> Procedure Social History Code Duration Value Status Description Data Source(s ) Smoking 03/01/2020 Daily Smoker completed Daily Smoker [facility] 07:09:00 PM EDT Medical C enter Smoking 03/01/2020 Daily Smoker completed Daily Smoker [facility] 06:33:00 PM EDT Medical C enter Smoking 03/01/2020 Daily Smoker completed Daily Smoker [facility] 06:17:00 PM EDT Medical C enter Smoking 02/24/2020 Daily Smoker completed Daily Smoker [facility] 06:19:00 PM EDT Medical C enter Smoking 02/24/2020 Daily Smoker completed Daily Smoker [facility] 06:04:00 PM EDT Medical C enter Smoking 02/20/2020 Daily Smoker completed Daily Smoker [facility] 11:25:00 PM EDT Medical C enter Smoking 02/20/2020 Daily Smoker completed Daily Smoker [facility] 10:34:00 PM EDT Medical C enter Smoking 02/18/2020 Daily Smoker completed Daily Smoker [facility] 10:51:00 PM EDT Medical C enter Smoking 02/18/2020 Daily Smoker completed Daily Smoker [facility] 10:28:00 PM EDT Medical C enter Smoking 02/18/2020 Daily Smoker completed Daily Smoker [facility] 03:44:00 PM EDT Medical C enter Smoking 02/17/2020 Daily Smoker completed Daily Smoker [facility] 03:35:00 PM EDT Medical C enter Smoking 02/17/2020 Daily Smoker completed Daily Smoker [facility] 03:35:00 PM EDT Medical C enter Smoking 02/15/2020 Daily Smoker completed Daily Smoker [facility] 03:11:00 PM EDT Medical C enter Smoking 02/15/2020 Daily Smoker completed Daily Smoker [facility] 03:07:00 PM EDT Medical C enter Smoking 02/15/2020 Daily Smoker completed Daily Smoker [facility] 03:02:00 PM EDT Medical C enter Smoking 01/29/2020 Daily Smoker completed Daily Smoker [facility] 04:25:00 PM EDT Medical C enter Smoking 01/29/2020 Daily Smoker completed Daily Smoker [facility] 04:12:00 PM EDT Medical C enter Smoking 01/12/2020 Daily Smoker completed Daily Smoker [facility] 06:23:00 PM EDT Medical C enter Smoking 01/12/2020 Daily Smoker completed Daily Smoker [facility] 06:05:00 PM EDT Medical C enter Smoking 01/12/2020 Daily Smoker completed Daily Smoker [facility] 05:48:00 PM EDT Medical C enter Smoking 01/10/2020 Daily Smoker completed Daily Smoker [facility] 04:57:00 PM EDT Medical C enter Smoking 12/27/2019 Daily Smoker completed Daily Smoker [facility] 02:42:00 AM EDT Medical C enter Smoking 12/26/2019 Daily Smoker completed Daily Smoker [facility] 11:09:00 PM EDT Medical C enter Smoking 12/26/2019 Daily Smoker completed Daily Smoker [facility] 11:05:00 PM EDT Medical C enter Smoking 12/20/2019 Daily Smoker completed Daily Smoker [facility] 07:33:00 PM EDT Medical C enter Smoking 12/20/2019 Daily Smoker completed Daily Smoker [facility] 07:29:00 PM EDT Medical C enter Smoking 12/20/2019 Daily Smoker completed Daily Smoker [facility] 07:10:00 PM EDT Medical C enter Smoking 12/14/2019 Daily Smoker completed Daily Smoker [facility] 11:49:00 AM EDT Medical C enter Smoking 12/14/2019 Daily Smoker completed Daily Smoker [facility] 10:56:00 AM EDT Medical C enter Smoking 12/11/2019 Daily Smoker completed Daily Smoker [facility] 08:44:00 PM EDT Medical C enter Smoking 12/11/2019 Daily Smoker completed Daily Smoker [facility] 08:34:00 PM EDT Medical C enter Smoking 12/11/2019 Daily Smoker completed Daily Smoker [facility] 08:01:00 PM EDT Medical C enter Smoking 12/08/2019 Daily Smoker completed Daily Smoker [facility] 06:11:00 PM EDT Medical C enter Smoking 12/08/2019 Daily Smoker completed Daily Smoker [facility] 05:29:00 PM EDT Medical C enter Smoking 11/30/2019 Daily Smoker completed Daily Smoker [facility] 08:01:00 PM EDT Medical C enter Smoking 11/28/2019 Daily Smoker completed Daily Smoker [facility] 06:55:00 PM EDT Medical C enter Smoking 11/28/2019 Daily Smoker completed Daily Smoker [facility] 06:51:00 PM EDT Medical C enter Smoking 11/15/2019 Daily Smoker completed Daily Smoker [facility] 05:47:00 PM EDT Medical C enter Smoking 11/15/2019 Daily Smoker completed Daily Smoker [facility] 05:44:00 PM EDT Medical C enter Smoking 11/15/2019 Daily Smoker completed Daily Smoker [facility] 05:34:00 PM EDT Medical C enter Smoking 10/22/2019 Daily Smoker completed Daily Smoker [facility] 03:32:00 PM EDT Medical C enter Smoking 10/22/2019 Daily Smoker completed Daily Smoker [facility] 03:31:00 PM EDT Medical C enter Smoking 10/22/2019 Daily Smoker completed Daily Smoker [facility] 03:23:00 PM EDT Medical C enter Smoking 07/13/2019 Daily Smoker completed Daily Smoker [facility] 11:17:00 PM EST Medical C enter Smoking 07/13/2019 Daily Smoker completed Daily Smoker [facility] 08:19:00 PM EST Medical C enter Smoking 07/13/2019 Daily Smoker completed Daily Smoker [facility] 07:00:00 PM EST Medical C enter Smoking 07/13/2019 Daily Smoker completed Daily Smoker [facility] 06:06:00 PM EST Medical C enter Smoking 05/11/2019 Daily Smoker completed Daily Smoker [facility] 09:10:00 PM EST Medical C enter Smoking 05/11/2019 Daily Smoker completed Daily Smoker [facility] 08:11:00 PM EST Medical C enter Smoking 04/06/2019 Daily Smoker completed Daily Smoker [facility] 11:26:00 PM EDT Medical C enter Smoking 04/06/2019 Daily Smoker completed Daily Smoker [facility] 06:25:00 PM EDT Medical C enter Smoking 04/06/2019 Daily Smoker completed Daily Smoker [facility] 06:12:00 PM EDT Medical C enter Smoking 2019 Denies Ever completed Denies Ever Smoked [facility] 10:56:00 PM EDT Smoked Medical C enter Smoking 2019 Denies Ever completed Denies Ever Smoked [facility] 10:12:00 PM EDT Smoked Medical C enter Smoking 2019 Denies Ever completed Denies Ever Smoked [facility] 10:08:00 PM EDT Smoked Medical C enter Smoking 2019 Denies Ever completed Denies Ever Smoked [facility] 02:42:00 PM EDT Smoked Medical C enter Smoking 2019 Denies Ever completed Denies Ever Smoked [facility] 02:19:00 PM EDT Smoked Medical C enter Smoking 02/28/2019 Denies Ever completed Denies Ever Smoked [facility] 04:09:00 PM EDT Smoked Medical C enter Smoking 02/12/2019 Denies Ever completed Denies Ever Smoked [facility] 05:44:00 PM EDT Smoked Medical C enter Smoking 02/12/2019 Denies Ever completed Denies Ever Smoked [facility] 05:30:00 PM EDT Smoked Medical C enter Smoking 02/12/2019 Denies Ever completed Denies Ever Smoked [facility] 05:19:00 PM EDT Smoked Medical [facility] enter Smoking 01/28/2019 Denies Ever completed Denies Ever Smoked [facility] 12:31:00 AM EDT Smoked Medical C enter Smoking 01/28/2019 Denies Ever completed Denies Ever Smoked [facility] 12:20:00 AM EDT Smoked Medical C enter Smoking 01/28/2019 Denies Ever completed Denies Ever Smoked [facility] 12:01:00 AM EDT Smoked Medical C enter Smoking 01/23/2019 Denies Ever completed Denies Ever Smoked [facility] 08:23:00 PM EDT Smoked Medical C enter Smoking 01/23/2019 Denies Ever completed Denies Ever Smoked [facility] 08:20:00 PM EDT Smoked Medical C enter Smoking 01/23/2019 Denies Ever completed Denies Ever Smoked [facility] 08:17:00 PM EDT Smoked Medical C enter Smoking 12/27/2018 Denies Ever completed Denies Ever Smoked [facility] 09:38:00 PM EDT Smoked Medical C enter Smoking 12/27/2018 Denies Ever completed Denies Ever Smoked [facility] 09:30:00 PM EDT Smoked Medical C enter Smoking 12/25/2018 Denies Ever completed Denies Ever Smoked [facility] 01:00:00 AM EDT Smoked Medical C enter Smoking 12/25/2018 Denies Ever completed Denies Ever Smoked [facility] 12:25:00 AM EDT Smoked Medical C enter Smoking 12/25/2018 Denies Ever completed Denies Ever Smoked [facility] 12:21:00 AM EDT Smoked Medical C enter Smoking 12/24/2018 Denies Ever completed Denies Ever Smoked [facility] 05:51:00 PM EDT Smoked Medical C enter Smoking 12/24/2018 Denies Ever completed Denies Ever Smoked [facility] 05:35:00 PM EDT Smoked Medical C enter Smoking 12/24/2018 Denies Ever completed Denies Ever Smoked [facility] 05:34:00 PM EDT Smoked Medical C enter Smoking 12/22/2018 Denies Ever completed Denies Ever Smoked [facility] 10:34:00 PM EDT Smoked Medical C enter Smoking 12/22/2018 Denies Ever completed Denies Ever Smoked [facility] 07:23:00 PM EDT Smoked Medical C enter Smoking 12/22/2018 Denies Ever completed Denies Ever Smoked [facility] 06:37:00 PM EDT Smoked Medical C enter Smoking 10/03/2018 Denies Ever completed Denies Ever Smoked [facility] 11:07:00 PM EDT Smoked Medical C enter Smoking 10/03/2018 Denies Ever completed Denies Ever Smoked [facility] 09:52:00 PM EDT Smoked Medical C enter Smoking 09/17/2018 Denies Ever completed Denies Ever Smoked [facility] 07:37:00 PM EDT Smoked Medical C enter Smoking 09/17/2018 Denies Ever completed Denies Ever Smoked [facility] 07:33:00 PM EDT Smoked Medical C enter Smoking 09/17/2018 Denies Ever completed Denies Ever Smoked [facility] 05:54:00 PM EDT Smoked Medical C enter Smoking 09/17/2018 Denies Ever completed Denies Ever Smoked [facility] 05:20:00 PM EDT Smoked Medical C enter Smoking 09/17/2018 Denies Ever completed Denies Ever Smoked [facility] 05:19:00 PM EDT Smoked Medical C enter Smoking 07/27/2018 Denies Ever completed Denies Ever Smoked [facility] 07:46:00 PM EST Smoked Medical C enter Smoking 07/27/2018 Denies Ever completed Denies Ever Smoked [facility] 06:32:00 PM EST Smoked Medical C enter Smoking 07/27/2018 Denies Ever completed Denies Ever Smoked [facility] 06:07:00 PM EST Smoked Medical C enter Smoking 07/20/2018 Denies Ever completed Denies Ever Smoked [facility] 07:04:00 PM EST Smoked Medical C enter Smoking 07/13/2018 Denies Ever completed Denies Ever Smoked [facility] 03:31:00 PM EST Smoked Medical C enter Smoking 07/13/2018 Denies Ever completed Denies Ever Smoked [facility] 03:27:00 PM EST Smoked Medical C enter Smoking Unknown if ever completed Unknown if ever Dorothea Lewis smoked smoked [facility] Vital Signs ID Date Data Source UNK Name Value Range Interpretation Code Description Data Source(s) Body temperature 36.560770 36.293971 [facility] Respiratory rate 17 /min 17 /min [facility] Oxygen saturation 99 % 99 % [facility] blood [facility] by Pulse oximetry Heart rate 78 /min 78 /min [facility] Diastolic blood 77 mm[Hg] 77 mm[Hg] [facility] Systolic blood 123 mm[Hg] 123 mm[Hg] [facility] Body weight 54.142240 kg 54.549282 kg [facility] Body temperature 36.880397 36.906177 [facility] Respiratory rate 17 /min 17 /min [facility] Oxygen saturation 98 % 98 % [facility] by Pulse oximetry Heart rate 85 /min 85 /min [facility] Body height 167.519937 167.185526 cm [facility] Medical [place] Diastolic blood 73 mm[Hg] 73 mm[Hg] [facility] Systolic blood 126 mm[Hg] 126 mm[Hg] [facility] Body mass index 19.3 kg/m2 19.3 kg/m2 [facility] (BMI) [Ratio] [facility] Body weight 70.888236 kg 70.352938 kg [facility] Body temperature 36.819776 36.691720 [facility] Respiratory rate 18 /min 18 /min [facility] Oxygen saturation 97 % 97 % [facility] by Pulse oximetry Heart rate 84 /min 84 /min [facility] Body height 167.683275 167.170814 cm [facility] Medical [place] Diastolic blood 90 mm[Hg] 90 mm[Hg] [facility] Systolic blood 134 mm[Hg] 134 mm[Hg] [facility] Body mass index 24.9 kg/m2 24.9 kg/m2 [facility] (BMI) [Ratio] Medical [facility] ter Oxygen saturation 96 % 96 % [facility] blood Medical [place] by Pulse oximetry Diastolic blood 79 mm[Hg] 79 mm[Hg] [facility] [place] Systolic blood 136 mm[Hg] 136 mm[Hg] [facility] Body temperature 36.532102 36.832710 [facility] Respiratory rate 18 /min 18 /min [facility] Oxygen saturation 94 % 94 % [facility] blood [facility] by Pulse oximetry Heart rate 85 /min 85 /min [facility] Diastolic blood 82 mm[Hg] 82 mm[Hg] [facility] [place] Systolic blood 145 mm[Hg] 145 mm[Hg] [facility] Body temperature 36.298510 36.757512 [facility] Respiratory rate 19 /min 19 /min [facility] Oxygen saturation 95 % 95 % [facility] blood [facility] by Pulse oximetry Heart rate 61 /min 61 /min [facility] Diastolic blood 92 mm[Hg] 92 mm[Hg] [facility] Systolic blood 149 mm[Hg] 149 mm[Hg] [facility] Body temperature 36.489291 36.278834 [facility] Respiratory rate 18 /min 18 /min [facility] Oxygen saturation 99 % 99 % [facility] blood [facility] by Pulse oximetry Heart rate 96 /min 96 /min [facility] Diastolic blood 95 mm[Hg] 95 mm[Hg] [facility] Systolic blood 126 mm[Hg] 126 mm[Hg] [facility] Body temperature 36.682045 36.714800 [facility] Respiratory rate 18 /min 18 /min [facility] Oxygen saturation 98 % 98 % [facility] blood [facility] by Pulse oximetry Heart rate 80 /min 80 /min [facility] Diastolic blood 80 mm[Hg] 80 mm[Hg] [facility] Systolic blood 124 mm[Hg] 124 mm[Hg] [facility] Body weight 58.157638 kg 58.082488 kg [facility] Body temperature 37.361822 37.605772 [facility] Respiratory rate 17 /min 17 /min [facility] Oxygen saturation 100 % 100 % [facility] by Pulse oximetry Heart rate 100 /min 100 /min [facility] Body height 167.547286 167.817614 cm [facility] Diastolic blood 79 mm[Hg] 79 mm[Hg] [facility] pressure Medical Center Systolic blood 129 mm[Hg] 129 mm[Hg] [facility] Body mass index 20.9 kg/m2 20.9 kg/m2 [facility] (BMI) [Ratio] [facility] Body temperature 36.362267 36.817982 [facility] Respiratory rate 18 /min 18 /min [facility] Oxygen saturation 98 % 98 % [facility] blood [facility] by Pulse oximetry Heart rate 80 /min 80 /min [facility] Diastolic blood 78 mm[Hg] 78 mm[Hg] [facility] Systolic blood 122 mm[Hg] 122 mm[Hg] [facility] Body temperature 36.275081 36.219094 [facility] Respiratory rate 18 /min 18 /min [facility] Oxygen saturation 98 % 98 % [facility] by Pulse oximetry Heart rate 86 /min 86 /min [facility] Diastolic blood 80 mm[Hg] 80 mm[Hg] [facility] Systolic blood 127 mm[Hg] 127 mm[Hg] [facility] Body temperature 37.431339 37.453710 [facility] Respiratory rate 18 /min 18 /min [facility] Oxygen saturation 96 % 96 % [facility] by Pulse oximetry Heart rate 84 /min 84 /min [facility] Diastolic blood 89 mm[Hg] 89 mm[Hg] [facility] Systolic blood 153 mm[Hg] 153 mm[Hg] [facility] Body temperature 36.048598 36.404209 [facility] Respiratory rate 18 /min 18 /min [facility] Oxygen saturation 98 % 98 % [facility] Ar[facility] blood [facility] by Pulse oximetry Heart rate 64 /min 64 /min [facility] Diastolic blood 91 mm[Hg] 91 mm[Hg] [facility] Systolic blood 169 mm[Hg] 169 mm[Hg] [facility] Body temperature 36.869568 36.489610 [facility] Respiratory rate 18 /min 18 /min [facility] Oxygen saturation 98 % 98 % [facility] by Pulse oximetry Heart rate 71 /min 71 /min [facility] Diastolic blood 71 mm[Hg] 71 mm[Hg] [facility] Systolic blood 139 mm[Hg] 139 mm[Hg] [facility] Body temperature 36.292864 36.197174 [facility] Respiratory rate 17 /min 17 /min [facility] Oxygen saturation 98 % 98 % [facility] by Pulse oximetry Heart rate 73 /min 73 /min [facility] Diastolic blood 66 mm[Hg] 66 mm[Hg] [facility] Systolic blood 132 mm[Hg] 132 mm[Hg] [facility] Body temperature 37.228728 37.732766 [facility] Respiratory rate 17 /min 17 /min [facility] Oxygen saturation 98 % 98 % [facility] blood [facility] by Pulse oximetry Heart rate 85 /min 85 /min [facility] Diastolic blood 87 mm[Hg] 87 mm[Hg] [facility] Systolic blood 154 mm[Hg] 154 mm[Hg] [facility] Body weight 63.082429 kg 63.852297 kg [facility] Body temperature 37.809773 37.594485 [facility] Respiratory rate 18 /min 18 /min [facility] Oxygen saturation 96 % 96 % [facility] blood [facility] by Pulse oximetry Heart rate 82 /min 82 /min [facility] Body height 172.207523 172.989597 cm [facility] Diastolic blood 90 mm[Hg] 90 mm[Hg] [facility] Systolic blood 146 mm[Hg] 146 mm[Hg] [facility] Body mass index 21.2 kg/m2 21.2 kg/m2 [facility] (BMI) [Ratio] Medical [facility] ter Body temperature 36.640808 36.131197 [facility] Respiratory rate 18 /min 18 /min [facility] Oxygen saturation 97 % 97 % [facility] blood [facility] by Pulse oximetry Heart rate 69 /min 69 /min [facility] Diastolic blood mm[Hg] [facility] pressure [facility] Center Systolic blood mm[Hg] [facility] Body weight 65.778502 kg 65.709443 [facility] Body temperature 36.106621 36.792078 [facility] Respiratory rate 17 /min 17 /min [facility] Oxygen saturation 99 % 99 % [facility] blood [facility] by Pulse oximetry Heart rate 80 /min 80 /min [facility] Body height 167.811041 167.949840 cm [facility] Diastolic blood 78 mm[Hg] 78 mm[Hg] [facility] Center Systolic blood 123 mm[Hg] 123 mm[Hg] [facility] Body mass index 23.1 kg/m2 23.1 kg/m2 [facility] (BMI) [Ratio] Medical [facility] ter Body weight 63.771685 kg 63.188501 kg [facility] Body temperature 37.131915 37.684139 [facility] Respiratory rate 18 /min 18 /min [facility] Oxygen saturation 93 % 93 % [facility] by Pulse oximetry Heart rate 82 /min 82 /min [facility] Body height 167.699907 167.029537 cm [facility] Diastolic blood 105 mm[Hg] 105 mm[Hg] [facility] Systolic blood 157 mm[Hg] 157 mm[Hg] [facility] Body mass index 22.5 kg/m2 22.5 kg/m2 [facility] (BMI) [Ratio] Medical [facility] ter Body weight 68.126967 kg 68.083223 kg [facility] Body temperature 36.751648 36.463236 [facility] Respiratory rate 20 /min 20 /min [facility] Oxygen saturation 100 % 100 % [facility] Ar[facility] blood [facility] by Pulse oximetry Heart rate 101 /min 101 /min [facility] Body height 165.555960 165.894963 cm [facility] Diastolic blood 80 mm[Hg] 80 mm[Hg] [facility] pressure Medical Center Systolic blood 140 mm[Hg] 140 mm[Hg] [facility] Body mass index 24.9 kg/m2 24.9 kg/m2 [facility] (BMI) [Ratio] Medical [facility] ter Body temperature 36.507808 36.848598 [facility] Respiratory rate 18 /min 18 /min [facility] Oxygen saturation 97 % 97 % [facility] Ar[facility] blood [facility] by Pulse oximetry Heart rate 88 /min 88 /min [facility] Diastolic blood 78 mm[Hg] 78 mm[Hg] [facility] pressure [facility] Center Systolic blood 145 mm[Hg] 145 mm[Hg] [facility] Body temperature 36.246437 36.873654 [facility] Respiratory rate 19 /min 19 /min [facility] Oxygen saturation 97 % 97 % [facility] Ar[facility] blood [facility] by Pulse oximetry Heart rate 94 /min 94 /min [facility] Diastolic blood 86 mm[Hg] 86 mm[Hg] [facility] Center Systolic blood 148 mm[Hg] 148 mm[Hg] [facility] Body temperature 36.775385 36.342103 [facility] Oxygen saturation 99 % 99 % [facility] Ar[facility] blood [facility] by Pulse oximetry Heart rate 89 /min 89 /min [facility] Body weight 77.065813 kg 77.195931 kg [facility] Body temperature 37.217844 37.610505 [facility] Respiratory rate 18 /min 18 /min [facility] Oxygen saturation 97 % 97 % [facility] blood [facility] by Pulse oximetry Heart rate 99 /min 99 /min [facility] Body height 165.484029 165.815978 cm [facility] Medical [place] Diastolic blood 87 mm[Hg] 87 mm[Hg] [facility] pressure Medical Center Systolic blood 145 mm[Hg] 145 mm[Hg] [facility] Body mass index 28.2 kg/m2 28.2 kg/m2 [facility] (BMI) [Ratio] [facility] Body temperature 36.615258 36.697611 [facility] Respiratory rate 17 /min 17 /min [facility] Oxygen saturation 98 % 98 % [facility] Arter[facility] blood [facility] by Pulse oximetry Heart rate 103 /min 103 /min [facility] Diastolic blood 81 mm[Hg] 81 mm[Hg] [facility] Systolic blood 128 mm[Hg] 128 mm[Hg] [facility] Body weight 58.325709 kg 58.381989 kg [facility] Body temperature 36.720547 36.841597 [facility] Respiratory rate 17 /min 17 /min [facility] Oxygen saturation 99 % 99 % [facility] Ar[facility] blood [facility] by Pulse oximetry Heart rate 112 /min 112 /min [facility] Body height 167.799565 167.979497 cm [facility] Diastolic blood 90 mm[Hg] 90 mm[Hg] [facility] Systolic blood 122 mm[Hg] 122 mm[Hg] [facility] Body mass index 20.9 kg/m2 20.9 kg/m2 [facility] (BMI) [Ratio] Medical [facility] ter Body temperature 36.391010 36.869799 [facility] Respiratory rate 16 /min 16 /min [facility] Oxygen saturation 98 % 98 % [facility] blood [facility] by Pulse oximetry Heart rate 73 /min 73 /min [facility] Diastolic blood 73 mm[Hg] 73 mm[Hg] [facility] pressure [facility] Center Systolic blood 154 mm[Hg] 154 mm[Hg] [facility] Body weight 72.992488 kg 72.214933 kg [facility] Body temperature 36.380892 36.964882 [facility] Respiratory rate 20 /min 20 /min [facility] Oxygen saturation 96 % 96 % [facility] Ar[facility] blood [facility] by Pulse oximetry Heart rate 72 /min 72 /min [facility] Body height 167.585526 167.420315 cm [facility] Medical [place] Diastolic blood 80 mm[Hg] 80 mm[Hg] [facility] pressure [facility] Center Systolic blood 136 mm[Hg] 136 mm[Hg] [facility] Body mass index 25.8 kg/m2 25.8 kg/m2 [facility] (BMI) [Ratio] Medical [facility] ter Body temperature 36.258441 36.877857 [facility] Respiratory rate 16 /min 16 /min [facility] Oxygen saturation 96 % 96 % [facility] Arterial blood [facility] by Pulse oximetry Heart rate 74 /min 74 /min [facility] Diastolic blood 79 mm[Hg] 79 mm[Hg] [facility] pressure Medical Center Systolic blood 136 mm[Hg] 136 mm[Hg] [facility] Body temperature 37.161293 37.298379 [facility] Body weight 65.403641 kg 65.355177 kg [facility] Body temperature 36.552794 36.130476 [facility] Respiratory rate 17 /min 17 /min [facility] Oxygen saturation 99 % 99 % [facility] Ar[facility] blood [facility] by Pulse oximetry Heart rate 102 /min 102 /min [facility] Diastolic blood 51 mm[Hg] 51 mm[Hg] [facility] Systolic blood 134 mm[Hg] 134 mm[Hg] [facility] Body weight 72.187095 kg 72.451659 kg [facility] Body temperature 36.260032 36.516620 [facility] Respiratory rate 17 /min 17 /min [facility] Oxygen saturation 98 % 98 % [facility] Ar[facility] blood [facility] by Pulse oximetry Heart rate 90 /min 90 /min [facility] Body height 157.916261 157.378115 cm [facility] Center Diastolic blood 98 mm[Hg] 98 mm[Hg] [facility] Systolic blood 136 mm[Hg] 136 mm[Hg] [facility] Medical [place] Body mass index 29.2 kg/m2 29.2 kg/m2 [facility] (BMI) [Ratio] [facility] [address] Body temperature 36.424547 36.728550 [facility] Respiratory rate 19 /min 19 /min [facility] Oxygen saturation 97 % 97 % [facility] Ar[facility] by Pulse oximetry Heart rate 78 /min 78 /min [facility] Diastolic blood 99 mm[Hg] 99 mm[Hg] [facility] Systolic blood 152 mm[Hg] 152 mm[Hg] [facility] Body temperature 36.787586 36.824339 [facility] Respiratory rate 18 /min 18 /min [facility] Oxygen saturation 98 % 98 % [facility] Arterial blood [facility] by Pulse oximetry Heart rate 80 /min 80 /min [facility] Diastolic blood 78 mm[Hg] 78 mm[Hg] [facility] Systolic blood 112 mm[Hg] 112 mm[Hg] [facility] Body temperature 36.751576 36.268912 [facility] Respiratory rate 18 /min 18 /min [facility] Oxygen saturation 98 % 98 % [facility] Ar[facility] by Pulse oximetry Heart rate 87 /min 87 /min [facility] Diastolic blood 67 mm[Hg] 67 mm[Hg] [facility] Systolic blood 115 mm[Hg] 115 mm[Hg] [facility] Body temperature 36.388393 36.081069 [facility] Respiratory rate 18 /min 18 /min [facility] Oxygen saturation 98 % 98 % [facility] Arterial blood [facility] by Pulse oximetry Heart rate 71 /min 71 /min [facility] Diastolic blood 78 mm[Hg] 78 mm[Hg] [facility] Systolic blood 131 mm[Hg] 131 mm[Hg] [facility] Body temperature 36.523208 36.997940 [facility] Respiratory rate 18 /min 18 /min [facility] Oxygen saturation 100 % 100 % [facility] Ar[facility] blood [facility] by Pulse oximetry Heart rate 78 /min 78 /min [facility] Diastolic blood 73 mm[Hg] 73 mm[Hg] [facility] pressure Medical Center Systolic blood 138 mm[Hg] 138 mm[Hg] [facility] Body weight 72.331903 kg 72.126667 kg [facility] Body temperature 36.029170 36.897506 [facility] Respiratory rate 17 /min 17 /min [facility] Oxygen saturation 99 % 99 % [facility] Arterial blood [facility] by Pulse oximetry Heart rate 66 /min 66 /min [facility] Diastolic blood 90 mm[Hg] 90 mm[Hg] [facility] [place] Systolic blood 158 mm[Hg] 158 mm[Hg] [facility] Body temperature 36.683404 36.070810 [facility] Respiratory rate 19 /min 19 /min [facility] Oxygen saturation 98 % 98 % [facility] blood [facility] by Pulse oximetry Heart rate 81 /min 81 /min [facility] Diastolic blood 77 mm[Hg] 77 mm[Hg] [facility] Systolic blood 132 mm[Hg] 132 mm[Hg] [facility] Body temperature 36.788745 36.084655 [facility] Respiratory rate 18 /min 18 /min [facility] Oxygen saturation 97 % 97 % [facility] blood [facility] by Pulse oximetry Heart rate 70 /min 70 /min [facility] Diastolic blood 84 mm[Hg] 84 mm[Hg] [facility] Systolic blood 128 mm[Hg] 128 mm[Hg] [facility] [place] Body temperature 36.353179 36.417091 [facility] Respiratory rate 17 /min 17 /min [facility] Oxygen saturation 96 % 96 % [facility] blood [facility] by Pulse oximetry Heart rate 72 /min 72 /min [facility] Diastolic blood 76 mm[Hg] 76 mm[Hg] [facility] Systolic blood 126 mm[Hg] 126 mm[Hg] [facility] Body temperature 36.063679 36.263861 [facility] Respiratory rate 18 /min 18 /min [facility] Heart rate 70 /min 70 /min [facility] Diastolic blood 76 mm[Hg] 76 mm[Hg] [facility] [place] Systolic blood 131 mm[Hg] 131 mm[Hg] [facility] Body weight 61.491184 kg 61.871553 kg [facility] Body temperature 36.594307 36.340909 [facility] Respiratory rate 18 /min 18 /min [facility] Oxygen saturation 97 % 97 % [facility] Arterial blood [facility] by Pulse oximetry Heart rate 70 /min 70 /min [facility] Body height 167.907280 167.173996 cm [facility] Diastolic blood 79 mm[Hg] 79 mm[Hg] [facility] Systolic blood 130 mm[Hg] 130 mm[Hg] [facility] Body mass index 21.7 kg/m2 21.7 kg/m2 [facility] (BMI) [Ratio] [facility] [address] [facility] Body weight 64.510727 kg 64.020119 kg [facility] Body temperature 36.964705 36.396621 [facility] Respiratory rate 20 /min 20 /min [facility] Oxygen saturation 9 % 9 % [facility] blood [facility] by Pulse oximetry Heart rate 75 /min 75 /min [facility] Body height 167.715338 167.105745 cm [facility] Diastolic blood 97 mm[Hg] 97 mm[Hg] [facility] Systolic blood 144 mm[Hg] 144 mm[Hg] [facility] Body mass index 22.7 kg/m2 22.7 kg/m2 [facility] (BMI) [Ratio] Medical [facility] ter Body temperature 37.148757 37.727653 [facility] Respiratory rate 18 /min 18 /min [facility] Oxygen saturation 96 % 96 % [facility] blood [facility] by Pulse oximetry Heart rate 98 /min 98 /min [facility] Diastolic blood 67 mm[Hg] 67 mm[Hg] [facility] Systolic blood 114 mm[Hg] 114 mm[Hg] [facility] Body temperature 36.927868 36.217569 [facility] Respiratory rate 18 /min 18 /min [facility] Oxygen saturation 97 % 97 % [facility] Arterial blood [facility] by Pulse oximetry Heart rate 105 /min 105 /min [facility] Diastolic blood 65 mm[Hg] 65 mm[Hg] [facility] Systolic blood 107 mm[Hg] 107 mm[Hg] [facility] Body temperature 36.535120 36.202953 [facility] Respiratory rate 18 /min 18 /min [facility] Oxygen saturation 98 % 98 % [facility] Arterial blood [facility] [place] by Pulse oximetry Heart rate 87 /min 87 /min [facility] Diastolic blood 78 mm[Hg] 78 mm[Hg] [facility] Systolic blood 139 mm[Hg] 139 mm[Hg] [facility] Body temperature 36.917127 36.029705 [facility] Respiratory rate 20 /min 20 /min [facility] Oxygen saturation 95 % 95 % [facility] Arterial blood [facility] [place] by Pulse oximetry Heart rate 91 /min 91 /min [facility] Diastolic blood 88 mm[Hg] 88 mm[Hg] [facility] Systolic blood 136 mm[Hg] 136 mm[Hg] [facility] Body temperature 36.191523 36.357528 [facility] Respiratory rate 17 /min 17 /min [facility] Oxygen saturation 98 % 98 % [facility] Arterial blood [facility] by Pulse oximetry Heart rate 80 /min 80 /min [facility] Diastolic blood 86 mm[Hg] 86 mm[Hg] [facility] Systolic blood 139 mm[Hg] 139 mm[Hg] [facility] Body temperature 36.991288 36.145794 [facility] Respiratory rate 18 /min 18 /min [facility] Oxygen saturation 97 % 97 % [facility] Arterial blood [facility] by Pulse oximetry Heart rate 86 /min 86 /min [facility] Diastolic blood 88 mm[Hg] 88 mm[Hg] [facility] pressure Medical Center Systolic blood 145 mm[Hg] 145 mm[Hg] [facility] Body weight 75.315297 kg 75.185309 kg [facility] Body temperature 36.681006 36.223546 [facility] Respiratory rate 19 /min 19 /min [facility] Oxygen saturation 98 % 98 % [facility] Arter[facility] blood [facility] by Pulse oximetry Heart rate 88 /min 88 /min [facility] Body height 165.908633 165.827703 cm [facility] Diastolic blood 84 mm[Hg] 84 mm[Hg] [facility] pressure [facility] Systolic blood 144 mm[Hg] 144 mm[Hg] [facility] Body mass index 27.5 kg/m2 27.5 kg/m2 [facility] (BMI) [Ratio] [facility] [address] [facility] Body temperature 36.359518 36.257530 [facility] Respiratory rate 18 /min 18 /min [facility] Oxygen saturation 97 % 97 % [facility] blood [facility] by Pulse oximetry Heart rate 90 /min 90 /min [facility] Diastolic blood 93 mm[Hg] 93 mm[Hg] [facility] Systolic blood 138 mm[Hg] 138 mm[Hg] [facility] Body temperature 36.231634 36.142854 [facility] Respiratory rate 18 /min 18 /min [facility] Oxygen saturation 97 % 97 % [facility] blood [facility] by Pulse oximetry Heart rate 19 /min 19 /min [facility] Diastolic blood 74 mm[Hg] 74 mm[Hg] [facility] pressure [facility] Systolic blood 134 mm[Hg] 134 mm[Hg] [facility] Patient Treatment Plan of Care Planned Activity Planned Date Details Description Data Source (s) Ibuprofen 600 MG Oral [facility]
[2020-03-09] MEDS ORDERED: FOLIC ACID INJECTION - 1 MG, THIAMINE HCL 100 MG, MULTIVIT INJECTION ADULT 10 ML in SOD... IVPB ONE (20:17)
--- NOTE | 2020-03-09 21:19 | PDOC ---
History of Present Illness - General Chief Complaint: Alcohol intoxication Stated Complaint: INTOXICATION Time Seen by Provider: 03/09/20 20:13 History Source: Patient Exam Limitations: No Limitations Past History - Travel History Traveled outside of the country in the last 30 days: No Close contact w/someone who was outside of country & ill: No - Medical History Allergies/Adverse Reactions: Allergies Allergy/AdvReac Type Severity Reaction Status Date / Time No Known Allergies Allergy Verified 03/09/20 19:44 Home Medications: Ambulatory Orders Gabapentin [Neurontin] 300 mg PO BID #28 capsule 01/10/19 Olanzapine [ZyPREXA -] 10 mg PO HS #30 tablet 08/13/19 Ibuprofen [Motrin -] 600 mg PO Q6H PRN #90 tablet 01/31/20 Aspirin [ASA -] 81 mg PO DAILY #30 tab.chew 02/02/20 Pantoprazole Sodium [Protonix -] 40 mg PO DAILY #30 tablet.ec 02/02/20 Anemia: No Asthma: No Cancer: No Cardiac Disorders: No CVA: No COPD: No CHF: No Dementia: No Diabetes: Yes GI Disorders: No Disorders: No HTN: No Hypercholesterolemia: No Kidney Stones: No Liver Disease: No Psychiatric Problems: Yes (Depression, schizophrenia) Seizures: No Thyroid Disease: No - Surgical History Abdominal Surgery: No Appendectomy: No Cardiac Surgery: No Cholecystectomy: No Lung Surgery: No Neurologic Surgery: No Orthopedic Surgery: Yes (LEFT KNEE SURGERY 1984) - Reproductive History Testicular Surgery: No - Immunization History Td Vaccination: Yes TDAP Vaccination: Yes Immunization Up to Date: No - Psycho-Social/Smoking History Smoking Status: Yes Smoking History: Current every day smoker Have you smoked in the past 12 months: Yes Number of Cigarettes Smoked Daily: 20 Cigars Per Day: 1 Information on smoking cessation initiated: Yes 'Breaking Loose' booklet given: 02/18/20 - Substance Abuse Hx (Audit-C & DAST Scrn) How often the patient has a drink containing alcohol: 4 0r more times/wk Number of drinks the patient has on a typical day: 10 or more How often the patient has six or more drinks on one occasion: Daily or almost daily Score: In Men: 4 or > Positive; In Women: 3 or > Positive: 12 Screen Result (Pos requires Nsg. Audit-10AR): Positive In the last yr the pt used illegal drug/Rx for NonMed reason: No Score: Yes response is considered Positive: 0 Screen Result (Positive result requires Nsg. DAST-10): Negative Review of Systems - Review of Systems Able to Perform ROS?: Yes Comments:: 03/09/20 21:58 CONSTITUTIONAL: Absent: fever, chills, diaphoresis, generalized weakness, malaise, loss of appetite HEENT: Absent: rhinorrhea, nasal congestion, throat pain, throat swelling, difficulty swallowing, mouth swelling, ear pain, eye pain, visual Changes CARDIOVASCULAR: Absent: chest pain, loss of consciousness, palpitations, irregular heart rate, peripheral edema RESPIRATORY: Absent: cough, shortness of breath, dyspnea with exertion, orthopnea, wheezing, stridor, hemoptysis GASTROINTESTINAL: Absent: abdominal pain, abdominal distension, nausea, vomiting, diarrhea, constipation, melena, hematochezia GENITOURINARY: Absent: dysuria, frequency, urgency, hesitancy, hematuria, flank pain, genital pain MUSCULOSKELETAL: Absent: myalgia, arthralgia, joint swelling SKIN: Absent: rash, itching, pallor HEMATOLOGIC/IMMUNOLOGIC: Absent: easy bleeding, easy bruising, lymphadenopathy, frequent infections ENDOCRINE: Absent: unexplained weight gain, unexplained weight loss, heat intolerance, cold intolerance NEUROLOGIC: Present: Numbness to arms and legs .Absent: headache, focal weakness or paresthesias, dizziness, unsteady gait, seizure, mental status changes, bladder or bowel incontinence PSYCHIATRIC: Absent: anxiety, depression, suicidal or homicidal ideation, hallucinations. Is the patient limited [place] proficient: No *Physical Exam - Vital Signs Last Vital Signs Temp Pulse Resp BP Pulse Ox 98.2 F 85 18 108/66 97 03/09/20 19:40 03/09/20 19:40 03/09/20 19:40 03/09/20 19:40 03/09/20 19:40 - Physical Exam 03/09/20 21:58 GENERAL: Alcohol in the breath, disheveled. Well developed, well nourished. Awake and alert. No acute distress. HEENT: Normocephalic, atraumatic. PERRLA, EOMI. No conjunctival pallor. Sclera are non- icteric. Moist mucous membranes. NECK: Supple. Full ROM. CARDIOVASCULAR: Regular rate and rhythm. No murmurs, rubs, or gallops. Distal pulses are 2+ and symmetric. PULMONARY: No evidence of respiratory distress. Lungs clear to auscultation bilaterally. No wheezing, rales or rhonchi. ABDOMINAL: Soft. Non-tender. Non-distended. No rebound or guarding. No organomegaly. Normoactive bowel sounds. MUSCULOSKELETAL Normal range of motion at all joints. No bony deformities or tenderness. No CVA tenderness. EXTREMITIES: No cyanosis. No clubbing. No edema. No calf tenderness. SKIN: Warm and dry. Normal capillary refill. No rashes. No jaundice. NEUROLOGICAL: Alert, awake, appropriate. Cranial nerves 2-12 intact. No deficits to light touch and temperature in face, upper extremities and lower extremities. No motor deficits in the in face, upper extremities and lower extremities. Normoreflexic in the upper and lower extremities. Normal speech. Toes are down-going bilater ally. Gait is normal without ataxia. PSYCHIATRIC: Cooperative. Good eye contact. Appropriate mood and affect. ED Treatment Course - LABORATORY CBC & Chemistry Diagram: 03/09/20 22:10 03/09/20 22:20 Medical Decision Making - Medical Decision Making 03/09/20 21:59 Patient is a 59-year-old male well-known to this emergency department with history of alcoholism, presents to the ER today for in tox. He also notes that he feels weak in his legs and arms feel numb. He states he last drank a "lot of beer "today. He stopped drinking approximately 3 hours prior to arrival. He states he went to [facility] because he felt weak and had numbness in his arms and legs however they did not do anything so he came to [facility] for evaluation. Denies fevers, chills, fall, nausea, vomiting, anxiety, itching. A/P: Intact On exam patient walks with a semi-steady gait currently smells of alcohol Given complaints of arm numbness and leg numbness will order basic labs to rule out electrolyte abnormality and hang a banana bag No signs of active withdrawal, no fasciculations Metabolize to freedom and treat any lab abnormalities Signout given to Dr. Spangler. Discharge - Discharge Information Problems reviewed: Yes Clinical Impression/Diagnosis: Bilateral leg paresthesia Alcohol intoxication Qualifiers: Complication of substance-induced condition: uncomplicated Qualified Code(s): F10.920 - Alcohol use, unspecified with intoxication, uncomplicated Condition: Improved Disposition: HOME - Follow up/Referral - Patient Discharge Instructions Patient Printed Discharge Instructions: DI for Alcohol Use Disorder Additional Instructions: You were seen in the ER today for alcohol intoxication. The results of your labs today were normal. Please follow-up with your primary care doctor within 1-2 days to discuss your visit and make sure your symptoms have improved. Please return to the ER if you have any worsening pain, development of fevers or chills, loss of consciousness, inability to tolerate food or fluids, or any other concerns. - Post Discharge Activity
[2020-03-09] MEDS ORDERED: ACETAMINOPHEN 325 MG TABLET (FP) PO ONE (21:33)
--- NOTE | 2020-03-09 22:10 | PDOC ---
*Physical Exam - Vital Signs Last Vital Signs Temp Pulse Resp BP Pulse Ox 98.2 F 85 18 108/66 97 03/09/20 19:40 03/09/20 19:40 03/09/20 19:40 03/09/20 19:40 03/09/20 19:40 ED Treatment Course - LABORATORY CBC & Chemistry Diagram: 03/09/20 22:10 03/09/20 22:20 Medical Decision Making - Medical Decision Making Pt was signed out to me by JAMES Pedroza, who explained the presentation, ED course, any pending results, and needed interventions. Pending results include labs, troponin, and reassessment after sobriety. Pt is currently stable and is lying comfortably. Pt is currently intoxicated with alcohol and complains of parasthesias in his extremities. No FNDs on exam. Pt has been ambulatory in ED without assistance. 03/09/20 22:09 Pt clinically sober, will go to his sister's home. Strict return precautions provided with pts understanding. 03/10/20 06:16 Discharge - Discharge Information Problems reviewed: Yes Clinical Impression/Diagnosis: Bilateral leg paresthesia Alcohol intoxication Qualifiers: Complication of substance-induced condition: uncomplicated Qualified Code(s): F10.920 - Alcohol use, unspecified with intoxication, uncomplicated Condition: Improved Disposition: HOME - Admission No - Follow up/Referral - Patient Discharge Instructions Patient Printed Discharge Instructions: DI for Alcohol Use Disorder Additional Instructions: You were seen in the ER today for alcohol intoxication. The results of your labs today were normal. Please follow-up with your primary care doctor within 1-2 days to discuss your visit and make sure your symptoms have improved. Please return to the ER if you have any worsening pain, development of fevers or chills, loss of consciousness, inability to tolerate food or fluids, or any other concerns. - Post Discharge Activity
[2020-03-09 22:30] LABS: BASO % 0.7 % (0-2.0); EOS % 0.9 % (0-4.5); HEMOGLOBIN 10.2 GM/dL (11.7-16.9); MCH 30.9 pg (25.7-33.7); MCHC 32.8 g/dl (32.0-35.9); MEAN CELL VOLUME 94.1 fl (80-96); MEAN PLT VOLUME 8.7 fl (7.5-11.1); MONO % 10.9 % (3.8-10.2); NEUT % 48.5 % (42.8-82.8); PLATELET COUNT 149 K/MM3 (134-434); RBC 3.29 M/mm3 (4.00-5.60); RDW 15.1 % (11.9-15.9)
[2020-03-09 22:37] LABS: ALBUMIN 3.2 g/dl (3.4-5.0); BILIRUBIN,TOTAL 0.6 mg/dL (0.2-1); BLOOD UREA NITROGEN 5.5 mg/dL (7-18); CALCIUM 8.6 mg/dL (8.5-10.1); CREATININE 0.8 mg/dL (0.55-1.3); POTASSIUM 4.1 mmol/L (3.5-5.1); TOT PROT 6.8 g/dl (6.4-8.2)
[2020-03-09] MEDS ORDERED: ACETAMINOPHEN 325 MG TABLET (FP) ONE (23:32)
[2020-03-09 23:34] LABS: MAGNESIUM 1.8 mg/dL (1.8-2.4)
--- NOTE | 2020-03-10 00:56 | PDOC ---
Attending Attestation - Resident Resident Name: Alexandra Spangler - ED Attending Attestation I have performed the following: I have examined & evaluated the patient, The case was reviewed & discussed with the resident, I agree w/resident's findings & plan - HPI HPI: 03/10/20 00:57 Pt is an alcoholic who is often here. No specific complaints. - Physicial Exam PE: 03/10/20 00:58 Pt is sleeping in a stretcher and sobering up. Agree with resident exam - Medical Decision Making 03/10/20 00:58 Normal labs Pt will be sent home in the AM 03/10/20 06:14 Pt is sober and he will be discharged home Discharge - Discharge Information Problems reviewed: Yes Clinical Impression/Diagnosis: Bilateral leg paresthesia Alcohol intoxication Qualifiers: Complication of substance-induced condition: uncomplicated Qualified Code(s): F10.920 - Alcohol use, unspecified with intoxication, uncomplicated Condition: Improved Disposition: HOME - Follow up/Referral - Patient Discharge Instructions Patient Printed Discharge Instructions: DI for Alcohol Use Disorder Additional Instructions: You were seen in the ER today for alcohol intoxication. The results of your labs today were normal. Please follow-up with your primary care doctor within 1-2 days to discuss your visit and make sure your symptoms have improved. Please return to the ER if you have any worsening pain, development of fevers or chills, loss of consciousness, inability to tolerate food or fluids, or any other concerns. - Post Discharge Activity
[2020-03-10 02:48] VITALS: BP 122/64; PULSE 72; TEMP 97.9
== END 2020-03-10 06:37 | disposition home or self-care (01) ==
LOC: JER 19:37
PROC: 3E033GC Introduction of Other Therapeutic Substance into Peripheral Vein, Percutaneous Approach (ICD-10-PCS; principal; 2020-03-09)
DX: F10.920 Alcohol use, unspecified with intoxication, uncomplicated (principal); R20.2 Paresthesia of skin
CPT/HCPCS: 36415; 80053; 83735; 85025; 99283-25; U0003

== ENCOUNTER 2020-03-12 21:41 | Emergency (ER) | payer OTHER ==
[2020-03-12 22:05] VITALS: BMI 25.0
--- NOTE | 2020-03-12 22:13 | PDOC ---
History of Present Illness - General Stated Complaint: FALL/ ALCOHOL INTOXICATION Time Seen by Provider: 03/12/20 21:56 - History of Present Illness Initial Comments: 03/13/20 01:26 59yo M from [facility] w/ PMHx EtOH abuse presents w/ acute intoxication s/p fall. He states he was walking near a bathroom when his foot got caught against a chair. He fell and "tucked and rolled" and he landed on his Left side. Did not his head or neck; denies head, neck, or back pain. Denies lightheadedness, vertiginous sx, LOC, CP, palpitations, SOB, vision changes, n/v, or pain anywhere else. Past History - Medical History Allergies/Adverse Reactions: Allergies Allergy/AdvReac Type Severity Reaction Status Date / Time No Known Allergies Allergy Verified 03/12/20 22:04 Home Medications: Ambulatory Orders Gabapentin [Neurontin] 300 mg PO BID #28 capsule 01/10/19 Olanzapine [ZyPREXA -] 10 mg PO HS #30 tablet 08/13/19 Ibuprofen [Motrin -] 600 mg PO Q6H PRN #90 tablet 01/31/20 Aspirin [ASA -] 81 mg PO DAILY #30 tab.chew 02/02/20 Pantoprazole Sodium [Protonix -] 40 mg PO DAILY #30 tablet.ec 02/02/20 Anemia: No Asthma: No Cancer: No Cardiac Disorders: No CVA: No COPD: No CHF: No Dementia: No Diabetes: Yes GI Disorders: No Disorders: No HTN: No Hypercholesterolemia: No Kidney Stones: No Liver Disease: No Psychiatric Problems: Yes (Depression, schizophrenia) Seizures: No Thyroid Disease: No - Surgical History Abdominal Surgery: No Appendectomy: No Cardiac Surgery: No Cholecystectomy: No Lung Surgery: No Neurologic Surgery: No Orthopedic Surgery: Yes (LEFT KNEE SURGERY 1984) - Reproductive History Testicular Surgery: No - Immunization History Td Vaccination: Yes TDAP Vaccination: Yes Immunization Up to Date: No - Psycho-Social/Smoking History Smoking Status: Yes Smoking History: Current every day smoker Have you smoked in the past 12 months: Yes Number of Cigarettes Smoked Daily: 20 Cigars Per Day: 1 'Breaking Loose' booklet given: 02/18/20 Review of Systems - Review of Systems Able to Perform ROS?: No (intoxicated) *Physical Exam - Physical Exam General Appearance: Yes: Nourished, Appropriately Dressed, Disheveled, Intoxicated. No: Apparent Distress HEENT: positive: EOMI, MISSY, Normal Voice. negative: Scleral Icterus (R), Scleral Icterus (L) Neck: positive: Trachea midline, Supple Respiratory/Chest: positive: Lungs Clear, Normal Breath Sounds. negative: Accessory Muscle Use Cardiovascular: positive: Regular Rhythm, Regular Rate Gastrointestinal/Abdominal: positive: Normal Bowel Sounds, Soft Musculoskeletal: positive: Normal Inspection. negative: CVA Tenderness Extremity: positive: Normal Capillary Refill, Normal Inspection, Normal Range of Motion Integumentary: positive: Normal Color, Warm, Moist Neurologic: positive: Alert, Motor Strength 5/5 ED Treatment Course - RADIOLOGY Radiograph Interpretation: 03/13/20 01:41 EXAM: HEAD CT WITHOUT CONTRAST HISTORY: Patient fell. EtOH head injury COMPARISON: None. FINDINGS: Involutional changes with moderate ventriculomegaly. These changes are out of proportion to the patient's relatively young age. No acute intracranial abnormality. No hemorrhage. Osseous structures are intact. One or more of the following dose reduction techniques were used: automated exposure control, CONFIDENTIALITY NOTICE: This information is intended only for the use of the recipient(s) named above. If you are not the intended recipient, or a person responsible for delivering it to the intended recipient, you are hereby notified that any disclosure, copying, distribution or use of any of the information contained in or attached to this transmission is STRICTLY PROHIBITED. If you have received this transmission in error, please immediately notify [employer] and destroy the original transmission and its attachments with out saving them in any manner Please call 03/01 Support: [phone] ([phone]) with questions. Patient Information: : 1960 Order Type: Preliminary Name: KALEE BOLAND Sex: M Study Description: CT HEAD Modality: CT Location: [facility] Referring Physician: JOLENE HARRIS adjustment of the mA and/or kV according to patient size, use of iterative reconstructive technique. THIS DOCUMENT HAS BEEN ELECTRONICALLY SIGNED Sang Shea MD THIS IS A PRELIMINARY REPORT DATE OF SERVICE: 2020-03-12 22:56:26 IMAGES: [id number] EXAM: CERVICAL SPINE CT W/O CONTR HISTORY: Patient fell COMPARISON: None. FINDINGS: Negative for cervical spine fracture or malalignment. Degenerative changes. Small bleb right lung apex. One or more of the following dose reduction techniques were used: automated exposure control, adjustment of the mA and/or kV according to patient size, use of iterative reconstructive technique. CONFIDENTIALITY NOTICE: This information is intended only for the use of the recipient(s) named above. If you are not the intended recipient, or a person responsible for delivering it to the intended recipient, you are hereby notified that any disclosure, copying, distribution or use of any of the information contained in or attached to this transmission is STRICTLY PROHIBITED. If you have received this transmission in error, please immediately notify [employer] and destroy the original transmission and its attachments without saving them in any manner Please call 03/01 Support: [phone] ([phone]) with questions. Patient Information: : 1960 Order Type: Preliminary Name: KALEE BOLAND Sex: M Study Description: CT CERVICAL SPINE Modality: CT Location: [facility] Referring Physician: JOLENE HARRIS THIS DOCUMENT HAS BEEN ELECTRONICALLY SIGNED Sang Shea MD 03/12/2020 23:39 EST M.D. Please call [facility] [employer] .[email or web address] ([phone]) with questions. Sang Shea MD Medical Decision Making - Medical Decision Making 03/13/20 01:42 60yo M s/p fall no n/v, LOC, focal neuro deficits, neck tenderness, restricted ROM, negative CT head/c-spine -> unlikely bleed, cerebral, other OBJECTIVE C DEVELOPER, or C-spine injury ->> DC back to [facility] Discharge - Discharge Information Problems reviewed: Yes Clinical Impression/Diagnosis: Alcohol use disorder, Fall - Follow up/Referral Referrals: Keyonna Fiore MD [Primary Care Provider] - - Patient Discharge Instructions - Post Discharge Activity
--- NOTE | 2020-03-12 22:16 | PDOC ---
Attending Attestation - Resident Resident Name: Omid Fontaine - ED Attending Attestation I have performed the following: I have examined & evaluated the patient, The case was reviewed & discussed with the resident, I agree w/resident's findings & plan - HPI HPI: 03/12/20 22:16 see resident hpi - Physicial Exam PE: 03/12/20 22:17 see resident exam - Medical Decision Making 03/12/20 23:06 59-year-old male status post mechanical fall after tripping on a chair at the detox intake facility sent here for evaluation There are no complaints or overt signs of injury Due to intoxication will CT scan head and cervical spine Plan to send back to [facility] as requested by patient for further evaluation for detox Discharge - Discharge Information Problems reviewed: Yes Clinical Impression/Diagnosis: Alcohol use disorder, Fall - Follow up/Referral - Patient Discharge Instructions - Post Discharge Activity
[2020-03-13 01:10] VITALS: BP 105/55; PULSE 68; TEMP 97.3
--- OUTSIDE RECORDS SUMMARY | 2020-03-13 07:23 | XMS ---
:1960 Author Organization [facility] Care Team Providers Name Role Phone ED STAFF PHYSICIAN Unavailable Unavailable ED STAFF PHYSICIAN Unavailable Unavailable ANDREW Ulrich Unavailable Unavailable RHONDA PONCE Unavailable Unavailable CHRISS العراقي Unavailable Unavailable ED STAFF PHYSICIAN, STAFF Unavailable Unavailable ED STAFF PHYSICIAN Unavailable Unavailable ED STAFF PHYSICIAN Unavailable Unavailable ZUNASSIGNED Unavailable Unavailable [facility] WJCS9 Unavailable Unavailable ZAMZAM BALBUENA Unavailable Unavailable ED STAFF PHYSICIAN Unavailable Unavailable [...] is protected by Article 27-F of the [facility] Public Health law. If you continue you may haveaccess to information: Regarding HIV / AIDS; Provided by facilities licensed or operated by the [facility] Office of Mental Health; or Provided by the [facility] Office for People With Developmental Disabilities. If such information is present, then the following [facility] mandated warning applies: This information has been [...] law may result in a fine or skilled nursing sentence or both. A general authorization for the release of medical or other information is NOT sufficient authorization for further disclosure. Allergies and Adverse Reactions Type Description Substance Reaction Status Data Source(s ) Drug allergy No Known Drug No Known Drug [facility] Encounters Encounter Providers Location Date Indications Data Source(s ) Emergency Attender: ED STAFF H 03/12/2020 [facility] PHYSICIANAttender: 06:47:00 PM [facility] STAFF ED STAFF EDT - PHYSICIANAdmitter: ED 03/12/2020 STAFF 08:00:00 PM PHYSICIANReferrer: EDT ZUNASSIGNED Patient discharged. Emergency Attender: ZAMZAM WYMAN 03/09/2020 04:36 :00 PM [facility] CAttender: STAFF ED STAFF EDT - 03/09/2020 [facility] PHYSICIANAdmitter: ZAMZAM 08:28:00 PM EDT ABDULKADIR WYMAN CReferrer: STAFF ED STAFF PHYSICIAN Patient discharged. Emergency Attender: ED STAFF 03/01/2020 05:48:00 PM [facility] PHYSICIANAttender: STAFF ED EDT - 03/01/2020 [facility] STAFF PHYSICIANAdmitter: ED 09:25:00 PM EDT STAFF PHYSICIANReferrer: STAFF ED STAFF PHYSICIAN Patient discharged. Emergency Attender: ED STAFF 02/24/2020 05:55:00 PM [facility] PHYSICIANAttender: STAFF ED EDT - 02/24/2020 [facility] STAFF PHYSICIANAdmitter: ED 10:42:00 PM EDT STAFF PHYSICIANReferrer: STAFF ED STAFF PHYSICIAN Patient discharged. Emergency Attender: ED STAFF H 02/20/2020 09:36:00 PM [facility] PHYSICIANAttender: STAFF ED EDT - 02/21/2020 [facility] STAFF PHYSICIANAdmitter: ED 07:13:00 AM EDT STAFF PHYSICIAN Patient discharged. Emergency Attender: ED STAFF H 02/18/2020 10:18:00 PM [facility] PHYSICIANAttender: ED STAFF EDT - 02/18/2020 [facility] PHYSICIANAttender: STAFF ED 11:23:00 PM EDT STAFF PHYSICIANAdmitter: ED STAFF PHYSICIAN Patient discharged. Emergency Attender: ED STAFF H 02/18/2020 03:32:00 PM [facility] PHYSICIANAttender: STAFF ED EDT - 02/18/2020 [facility] STAFF PHYSICIANAdmitter: ED 11:24:00 PM EDT STAFF PHYSICIANReferrer: STAFF ED STAFF PHYSICIAN Patient discharged. Emergency Attender: ZAMZAM Silverman 02/17/2020 03:33 :00 PM [facility] STAFF EDT - 02/17/2020 [facility] PHYSICIANAdmitter: ZAMZAM 04:36:00 PM EDT ABDULKADIR WYMAN CReferrer: STAFF ED STAFF PHYSICIAN Patient discharged. Emergency Attender: ZAMZAM Silverman 02/15/2020 02:57 :[address] [facility]: STAFF ED STAFF EDT - 02/15/2020 [facility] PHYSICIANAdmitter: ZAMZAM 06:44:00 PM EDT ABDULKADIR Herrera Patient discharged. Emergency Attender: ZAMZAM Silverman 01/29/2020 04:10 :[address] [facility]: STAFF ED STAFF EDT - 01/29/2020 [facility] PHYSICIANAdmitter: ZAMZAM 05:19:00 PM EDT ABDULKADIR Herrera Patient discharged. Emergency Attender: STAFF ED STAFF 01/12/2020 05:43:00 PM [facility] PHYSICIANReferrer: STAFF ED EDT - 01/12/2020 [facility] STAFF PHYSICIAN 08:26:00 PM EDT Patient discharged. Emergency Attender: ZAMZAM Silverman 01/10/2020 04:39 :00 PM [facility] ED STAFF EDT - 01/10/2020 [facility] PHYSICIANAdmitter: ZAMZAM 09:11:00 PM EDT ABDULKADIR Herrera Patient discharged. Emergency Attender: STAFF ED STAFF H 12/26/2019 10:55:00 PM [facility] PHYSICIAN EDT - 12/27/2019 03:29:00 Center AM EDT Patient discharged. Emergency Attender: CHRISS Silverman 12/25/2019 02:01 :00 PM [facility]: STAFF ED STAFF EDT - 12/25/2019 [facility] PHYSICIANAdmitter: CHRISS 02:29:00 PM EDT ISAURAO CHRISS S Patient discharged. Emergency Attender: ZAMZAM Silverman 12/20/2019 07:25 :00 PM [facility] STAFF EDT - 12/21/2019 [facility] PHYSICIANAttender: STAFF ED 01:07:00 AM EDT STAFF PHYSICIANAdmitter: ZAMZAM Herrera Patient discharged. Emergency Attender: ED STAFF H 12/14/2019 10:47:00 AM [facility] PHYSICIANAttender: STAFF ED EDT - 12/14/2019 [facility] STAFF PHYSICIANAdmitter: ED 03:40:00 PM EDT STAFF PHYSICIAN Patient discharged. Emergency Attender: ZAMZAM Silverman 12/11/2019 07:57 :00 PM [facility] STAFF EDT - 12/11/2019 [facility] PHYSICIANAdmitter: ZAMZAM 10:14:00 PM EDT ABDULKADIR Herrera Patient discharged. Emergency Attender: RHONDA HUANG 12/08/2019 05:19:00 PM [facility] ROMANttender: STAFF ED EDT - 12/08/2019 [facility] STAFF PHYSICIANAdmitter: 06:44:00 PM EDT RHONDA BARROSOTUS BOWENRADHAJamie Patient discharged. Emergency Attender: STAFF ED STAFF 11/30/2019 07:50:00 PM [facility] Medical PHYSICIAN EDT - 12/01/2019 12:41:00 Center AM EDT Patient discharged. Emergency Attender: ED STAFF H 11/28/2019 06:37:00 PM [facility] PHYSICIANAttender: STAFF ED EDT - 11/28/2019 [facility] STAFF PHYSICIANAdmitter: ED 10:35:00 PM EDT STAFF PHYSICIAN Patient discharged. Emergency Attender: ZAMZAM Silverman 11/15/2019 05:23 :00 PM [facility] Lexie: STAFF ED STAFF EDT - 11/15/2019 [facility] PHYSICIANAdmitter: ZAMZAM 09:35:00 PM EDT ABDULKADIR Herrera Patient discharged. Emergency Attender: ED STAFF H 10/22/2019 03:10:00 PM [facility] PHYSICIANAttender: STAFF ED EDT - 10/22/2019 [facility] STAFF PHYSICIANAdmitter: ED 06:05:00 PM EDT STAFF PHYSICIAN Patient discharged. Outpatient Attender: [id number] HV 07/31/2019 01:13:58 PM [facility] Patient admitted. Emergency Attender: ED STAFF H 07/13/2019 05:47:00 PM [facility] PHYSICIANAttender: ANDREW EST - 07/14/2019 [facility] AUGIE Drew: STAFF ED 06:43:00 AM EST STAFF PHYSICIANAdmitter: ED STAFF PHYSICIAN Patient discharged. Emergency Attender: RHONDA HUANG H 05/11/2019 08:09:00 PM [facility] JESSIGINEAttender: ED STAFF EST - 05/12/2019 [facility] PHYSICIANAttender: STAFF ED 04:36:00 AM EST STAFF PHYSICIANAdmitter: RHONDA ELLIS Patient discharged. Emergency H 04/06/2019 05:58:00 PM EDT - [address] [place] [address] 09:41:00 PM EDT Patient discharged. Emergency H 2019 09:47:00 PM EDT - [address] [place] [address] 03:00:00 PM EDT Patient discharged. Emergency H 2019 02:17:00 PM EDT - [address] [place] [address] 09:58:00 PM EDT Patient discharged. Emergency H 02/28/2019 03:30:00 PM EDT - [address] [place] [address] 06:39:00 PM EDT Patient discharged. Emergency H 02/12/2019 05:18:00 PM EDT - [address] [place] [address] 09:22:00 PM EDT Patient discharged. Emergency H 01/28/2019 12:00:00 AM EDT - [address] [place] [address] 06:45:00 AM EDT Patient discharged. Emergency H 01/23/2019 08:14:00 PM EDT - [address] [place] [address] 01:34:00 AM EDT Patient discharged. Emergency H 12/27/2018 09:32:00 PM EDT [facility] Emergency H 12/25/2018 12:16:00 AM EDT [facility] Emergency H 12/24/2018 05:25:00 PM EDT [facility] Emergency H 12/22/2018 06:33:00 PM EDT [facility] Emergency H 10/03/2018 09:25:00 PM EDT [facility] Emergency H 09/17/2018 07:31:00 PM EDT [facility] Emergency H 09/17/2018 05:10:00 PM EDT [facility] Emergency H 07/27/2018 05:50:00 PM EST [facility] Immunizations Vaccine Date Status Description Data Source(s) Tdap 09/13/2017 08:11:00 PM EDT completed [facility] Medications Medication Brand Start Product Dose Route Administrative Pharmacy [facility] Indications Reaction Description Data Name Date Form Instructions Instructions Source(s) Ibuprofen ibupro 1 complet [facility] 600 MG Oral fen [facility] Tablet 600 mg Medical ibuprofen Tablet Center 600 mg , Tablet, Ordere Ordered By: d By: mariama Preston PADleandro Wells s: 1 tablet a, oral every PADire six hours ctions PRN pain : 1 tablet oral every six hours PRN pain Insurance Providers Payer name Policy type Policy ID Covered Covered democrat's Policy P [place] / Coverage democrat ID relationship to [place] [facility] [place] [facility] [id number] SP [id number] 600 HEALTH NON CAP MEDICAID [id number] SP [id number] [facility]ARE [id number] 01 [id number] SAW [id number] SP [id number] 600 HEALTH NON CAP [facility] [id number] SP [id number] 600 HEALTH NON CAP Problems, Conditions, and Diagnoses Code Display Name Description Problem Type Effective Data Dates Source(s) Z53.20 Procedure and PROC/TRTMT NOT CRD Diagnosis 03/09/2020 Anurag nt [facility] treatment not OUT BEC PT 04:36:00 PM Medical carried out DECISION FOR [facility] EDT Center because of REASONS patient's decision for unspecified reasons F10.20 Alcohol ALCOHOL Diagnosis 03/09/2020 [facility] dependence, DEPENDENCE, 04:36:00 PM Medical uncomplicated UNCOMPLICATED EDT Center F10.129 Alcohol abuse with ALCOHOL ABUSE WITH Diagnosis 0 [facility] intoxication, INTOXICATION, 04:36:00 PM Medical unspecified UNSPECIFIED EDT Center F17.210 Nicotine NICOTINE Diagnosis 03/01/2020 [facility] dependence, DEPENDENCE, 05:48:00 PM Medical cigarettes, CIGARETTES, EDT Center uncomplicated UNCOMPLICATED I10 Essential ESSENTIAL Diagnosis 03/01/2020 [facility] (primary) (PRIMARY) 05:48:00 PM Medical hypertension HYPERTENSION EDT Center R40.1070 Omi coma scale OMI COMA SCALE Diagnosis 0 [facility] score 13-15, SCORE 13-15, 05:48:00 PM Medical unspecified time UNSPECIFIED TIME EDT Ce nter R07.9 Chest pain, CHEST PAIN, Diagnosis 03/01/2020 [facility] unspecified UNSPECIFIED 05:48:00 PM Medical EDT Center Z53.21 Procedure and PROC/TRTMT NOT CRD Diagnosis 02/24/2020 Anurag smith Joshua treatment not OUT D/T PT LV BEF 05:55:00 PM Med ical carried out due to SEEN BY [facility] EDT Center patient leaving [place] prior to being seen by health care provider Z59.0 Homelessness HOMELESSNESS Diagnosis 02/20/2020 [facility] 09:36:00 PM Medical EDT Center Z72.0 Tobacco use TOBACCO USE Diagnosis 02/15/2020 [...] street [address] AND Diagnosis 10/22/[address] 03:10:[address] of EDT Center occurrence of the external cause Y93.9 Activity, ACTIVITY, Diagnosis 10/22/2019 [facility] unspecified UNSPECIFIED 03:10:00 PM Medical EDT Center W01.0XXA Fall on same level FALL SAME LEV FROM Diagnosis 0 [facility] from slipping, SLIP/TRIP W/O 03:10:00 PM Medica l tripping and STRIKE AGAINST EDT Center stumbling without OBJECT, INIT subsequent striking against object, initial encounter M25.462 Effusion, left EFFUSION, LEFT Diagnosis 10/22/2019 [facility] knee KNEE 03:10:00 PM Medical EDT Center M17.12 Unilateral primary UNILATERAL PRIMARY Diagnosis 0 [facility] osteoarthritis, OSTEOARTHRITIS, 03:10:00 PM Med ical left knee LEFT KNEE EDT Center S93.402A Sprain of SPRAIN OF Diagnosis 10/22/2019 [facility] unspecified UNSPECIFIED 03:10:00 PM Medical ligament of left LIGAMENT OF LEFT EDT Ce nter ankle, initial ANKLE, INIT ENCNTR encounter M25.569 Pain in PAIN IN Diagnosis 10/22/2019 [facility] unspecified knee UNSPECIFIED KNEE 03:10:00 PM edical EDT Center Z00.00 Encounter for ENCNTR FOR GENERAL Diagnosis 01/28/2019 [facility] general adult ADULT MEDICAL EXAM 12:00:00 AM Ma dical medical W/O ABNORMAL EDT Center examination FINDINGS without abnormal findings Results ID Date Data Source HematologyRou.[id number] 02/15/2020 05:09:00 PM EDT [facility] 0400 Name Value Range Interpretation Description Data Sup porting Code Source(s) Document(s ) Hematocrit 41.0-53. Below low normal <content [facility] [Volume 0 styleCode="Bold Joshua Fraction] of ">Hematocrit Medical Blood by </content>37.4 [...] ics"> (8.0-11.0 FL)</content> ID Date Data Source GFR(Creatinine).[id number] 02/15/2020 05:09:00 PM EDT [facility] 0-0400 Name Value Range Interpretation Code Description Data Alyson rce(s) Supporting Document(s ) UNK > 60 <content [facility] styleCode="Bold"> Medical Cent er EGFR </content>127 GFR<content styleCode="Italic s"> (> 60 GFR)</content> ID Date Data Source [facility].[id number] 02/15/2020 05:09:00 PM EDT [facility] Name Value Range Interpretation Description [...] Serum or Dioxide Center Plasma </content>23 MEQ/L<content styleCode="Mariama lics"> (22-30 MEQ/L)</conten t> UNK 9-20 <content [facility] styleCode="Sera Joshua d">BUN Medical </content>14 Center MG/DL<content styleCode="Mariama lics"> (9-20 MG/DL)</conten t> Calcium 8.4-10.2 <content [facility] [Mass/volume] styleCode="Sera [place] in Serum or d">Calcium Medical Plasma </content>9.6 Center MG/DL<content styleCode="Mariama lics"> (8.4-10.2 MG/DL)</conten t> Glucose 74-106 Above high normal <content [facility] [Mass/volume] styleCode="Sera [place] in Serum or d">Glucose Medical Plasma </content>149 Center MG/DL H<content styleCode="Mariama lics"> (74-106 MG/DL)</conten t> UNK > 60 <content [facility] styleCode="Sera Joshua d">EGFR Medical </content>127 Center GFR<content styleCode="Mariama lics"> (> 60 GFR)</content> Creatinine 0.5-1.3 <content [facility] [Mass/volume] styleCode="Sera [place] in Serum or d">Creatinine Medical Plasma </content>0.8 Center MG/DL<content styleCode="Mariama lics"> (0.5-1.3 MG/DL)</conten t> ID Date Data Source [id number] 01/29/2020 10:00:00 PM EDT [facility] Name Value Range Interpretation Description Data Sup porting Code Source(s) Document(s ) SARS [facility] coronavirus 2 RNA This lab was ordered by [facility] [address] Bill Inter and reported by [facility]. ID Date Data Source [id number] 12/26/2019 11:00:00 AM EDT [facility] Name Value Range Interpretation Description Data Sup porting Code Source(s) Document(s ) SARS [facility] coronavirus 2 RNA This lab was ordered by [facility] and reported by [facility]. ID Date Data Source Liver 12/14/2019 11:55:00 AM EDT [facility] Profile.[id number] Name Value Range Interpretation Description Data Sup [...] s"> (3.5-5.0 G/DL)</content> ID Date Data Source HematologyRou.[id number] 12/14/2019 11:55:00 AM EDT Anur[facility] 0400 Name Value Range Interpretation Description Data [...] Eosinophils 0-5.0 <content [facility] [#/volume] in styleCode="Bold Joshua Blood by ">Eosinophil Medical Automated count </content>0.2 [...] (0-0.1 KCUMM)</content > ID Date Data Source GFR(Creatinine).[id number] 12/14/2019 11:55:00 AM EDT Anurag [facility] 0-0400 Name Value Range Interpretation Code Description Data Alyson rce(s) Supporting Document(s ) UNK > 60 <content [facility] styleCode="Bold"> Medical Cent er EGFR </content>177 GFR<content styleCode="Italic s"> (> 60 GFR)</content> ID Date Data Source Coagulation 12/14/2019 11:55:00 AM [facility] Rout.[id number] EDT Name Value Range Interpretation Description Data [...] cs"> (25.1-36.5 SEC)</content> ID Date Data Source LOWELL.[id number] 12/14/2019 11:55:00 AM EDT [facility] -0400 Name Value Range Interpretation Description Data [...] Natriuretic < 125 <content [facility] peptide.B styleCode="Sera Joshua prohormone d">NT Pro BNP Medical N-Terminal </content>27.8 Center [Mass/volume] PG/ML<content in Serum or styleCode="Mariama Plasma lics"> (< 125 PG/ML)</conten t> Protein 6.3-8.2 <content [facility] [Mass/volume] styleCode="Sera Joshua in Serum or d">Total Medical Plasma Protein Center </content>7.4 G/DL<content styleCode="Mariama lics"> (6.3-8.2 G/DL)</content > ID Date Data Source CardiacMarkers.[id number] 12/14/2019 11:55:00 AM EDT [facility] -0400 Name Value Range Interpretation Description Data Sup porting Code Source(s) Document(s ) Troponin < 0.034 <content [facility] I.cardiac styleCode="Bold Joshua [Mass/volume ">Troponin I Medical ] in Serum </content>< Center or Plasma 0.012 NG/ML<content styleCode="Ital ics"> (< 0.034 NG/ML)</content > ID Date Data Source [facility].[id number] 12/14/2019 11:55:00 AM EDT [facility] Name Value Range Interpretation Description Data Sup porting Code Source(s) Document(s ) Sodium 137-145 <content [facility] [Moles/volume] in styleCode="Bold"> [facility] Serum or Plasma Sodium Medical </content>137 Center MEQ/L<content styleCode="Italic s"> (137-145 MEQ/L)</content> Chloride 98-107 <content [facility] [Moles/volume] in styleCode="Bold"> [facility] Serum or Plasma Chloride Medical </content>103 Center MEQ/L<content styleCode="Italic s"> (98-107 MEQ/L)</content> Potassium 3.5-5.3 <content [facility] [Moles/volume] in styleCode="Bold"> [facility] Serum or Plasma Potassium Medical </content>4.1 Center [...] IU/L)</content> UNK > 60 <content [facility] styleCode="Bold"> [facility] EGFR Medical </content>177 Center GFR<content styleCode="Italic s"> (> 60 GFR)</content> Albumin 3.5-5.0 <content [facility] [Mass/volume] in styleCode="Bold"> Emiliano hs Serum or Plasma Albumin Medical </content>4.2 Center G/DL<content styleCode="Italic s"> (3.5-5.0 G/DL)</content> Bilirubin.total 0.2-1.3 <content [facility] [Mass/volume] in styleCode="Bold"> Emiliano hs Serum or Plasma Bilirubin Total Medical </content>0.7 Center MG/DL<content styleCode="Italic s"> (0.2-1.3 MG/DL)</content> ID Date Data Source [id number] 12/01/2019 07:20:00 AM EDT [facility] Name Value Range Interpretation Description Data Sup porting Code Source(s) Document(s ) SARS [facility] CORONAVIRUS 2 RNA This lab was ordered by [place] Laura Herrera and reported by [facility]. ID Date Data Source CHMROUTINECCDA.[id number] 07/13/2019 06:54:00 PM EST [facility] -0500 Name Value Range Interpretation Description Data Sup porting Code Source(s) Document(s ) Cannabinoids <content [facility] [Presence] in styleCode="Sera [facility] Urine by Screen d">Cannabinoid Medical method >50 ng/mL s Center </content>PRES UMPTIVE POSITIVE NG/ML (Reference Range: not available)<br/ > ID Date Data Source HematologyRou.[id number] 07/13/2019 06:51:00 PM [facility] 0500 Name Value Range Interpretation [...] Joshua Fraction] of ">Hematocrit Medical Blood by </content>38.4 [...] ics"> (8.0-11.0 [place])</content> ID Date Data Source GFR(Creatinine).[id number] 07/13/2019 06:51:00 PM EST Anurag [facility] 0-0500 Name Value Range Interpretation Code Description Data Alyson rce(s) Supporting Document(s ) UNK > 60 <content [facility] styleCode="Bold"> Medical Cent er EGFR </content>127 GFR<content styleCode="Italic s"> (> 60 GFR)</content> ID Date Data Source BMP.[id number] 07/13/2019 06:51:00 PM EST [facility] Name Value Range Interpretation Description [...] t> Chloride 98-107 <content [facility] [Moles/volume] styleCode="Sera [place] in Serum or d">Chloride Medical Plasma </content>103 Center MEQ/L<content styleCode="Mariama lics"> (98-107 MEQ/L)</conten t> Creatinine 0.5-1.3 <content [facility] [Mass/volume] styleCode="Sera [place] in Serum or d">Creatinine Medical Plasma </content>0.8 Center MG/DL<content styleCode="Mariama lics"> (0.5-1.3 MG/DL)</conten t> Calcium 8.4-10.2 <content [facility] [Mass/volume] styleCode="Sera [place] in Serum or d">Calcium Medical Plasma </content>9.9 Center MG/DL<content styleCode="Mariama lics"> (8.4-10.2 MG/DL)</conten t> Glucose 74-106 <content [facility] [Mass/volume] styleCode="Sera [place] in Serum or d">Glucose Medical Plasma </content>100 Center MG/DL<content styleCode="Mariama lics"> (74-106 MG/DL)</conten t> UNK > 60 <content [facility] styleCode="Sera [facility] d">EGFR Medical </content>127 Center GFR<content styleCode="Mariama lics"> (> 60 GFR)</content> ID Date Data Source Liver Profile 07/27/2018 07:25:00 PM EST [facility] Name Value Range Interpretation Description Data [...] Data Source HematologyRou 07/27/2018 07:25:00 PM EST [facility] Name Value Range Interpretation Description Data [...] Date Data Source GFR(Creatinine) 07/27/2018 07:25:00 PM [facility] Name Value Range Interpretation Code Description Data Alyson rce(s) Supporting Document(s ) UNK > 60 <content [facility] styleCode="Bold"> Medical Cent er EGFR </content>178 GFR<content styleCode="Italic s"> (> 60 GFR)</content> ID Date Data Source BMP 07/27/2018 07:25:00 PM [facility] Name Value Range Interpretation Description Data Sup porting Code Source(s) Document(s ) Sodium 137-145 <content [facility] [Moles/volume] in styleCode="Bold"> [facility] Serum or Plasma Sodium Medical </content>142 Center MEQ/L<content styleCode="Italic s"> (137-145 MEQ/L)</content> Potassium 3.5-5.3 <content [facility] [Moles/volume] in styleCode="Bold"> [place] phs Serum or Plasma Potassium Medical </content>4.2 Center [...] 9-20 Below low <content [facility] normal styleCode="Bold"> Jsohua BUN </content>8 Medical MG/DL L<content Center styleCode="Italic [...] Value Status Description Data Source(s ) Smoking 03/12/2020 Daily Smoker completed Daily Smoker [facility] 07:00:00 PM EDT Medical C enter Smoking 03/12/2020 Daily Smoker completed Daily Smoker [facility] 06:52:00 PM EDT Medical C enter Smoking 03/09/2020 Daily Smoker completed Daily Smoker [facility] 05:58:00 PM EDT Medical C enter Smoking 03/09/2020 Daily Smoker completed Daily Smoker [facility] 04:57:00 PM EDT Medical C enter Smoking 03/09/2020 Daily Smoker completed Daily Smoker [facility] 04:52:00 PM EDT Medical C enter Smoking 03/01/2020 [...] Smoking 02/15/2020 Daily Smoker completed Daily Smoker [facility] 03:11:00 PM EDT Medical C enter Smoking 02/15/2020 Daily Smoker completed Daily Smoker [facility] 03:07:00 PM EDT Medical C enter Smoking 02/15/2020 Daily Smoker completed Daily Smoker [facility] 03:02:00 PM EDT Medical C enter [...] Smoking 12/20/2019 Daily Smoker completed Daily Smoker [facility] 07:33:00 PM EDT Medical C enter [...] Smoker completed Daily Smoker [facility] 07:00:00 PM EST Medical C enter [...] Value Range Interpretation Code Description Data Source(s) Oxygen saturation 97 % 97 % [facility] in Arterial blood [facility] by Pulse oximetry Heart rate 76 /min 76 /min [facility] Body height 165.400389 165.115676 cm [facility] [place] Diastolic blood 72 mm[Hg] 72 mm[Hg] [facility] Center Systolic blood 138 mm[Hg] 138 mm[Hg] [facility] Body mass index 23.8 kg/m2 23.8 kg/m2 [facility] (BMI) [Ratio] Medical [facility] Body weight 65.454398 kg 65.233760 kg [facility] Body temperature 36.855881 36.875990 [facility] Respiratory rate 18 /min 18 /min [facility] Body temperature 36.594210 36.215033 [facility] Respiratory rate 19 /min 19 /min [facility] Oxygen saturation 96 % 96 % [facility] Arterial blood [facility] by Pulse oximetry Heart rate 113 /min 113 /min [facility] Diastolic blood 76 mm[Hg] 76 mm[Hg] [facility] Center Systolic blood 136 mm[Hg] 136 mm[Hg] [facility] Body temperature 36.286333 36.322003 [facility] Respiratory rate 17 /min 17 /min [facility] Oxygen saturation 99 % 99 % [facility] Arterial blood [facility] by Pulse oximetry Heart rate 78 /min 78 /min [facility] Diastolic blood 77 mm[Hg] 77 mm[Hg] [facility] Systolic blood 123 mm[Hg] 123 mm[Hg] [facility] Body weight 54.280231 kg 54.485271 kg [facility] Body temperature 36.361302 36.986370 [facility] Respiratory rate 17 /min 17 /min [facility] Oxygen saturation 98 % 98 % [facility] blood [facility] by Pulse oximetry Heart rate 85 /min 85 /min [facility] Body height 167.819574 167.371697 cm [facility] Diastolic blood 73 mm[Hg] 73 mm[Hg] [facility] Systolic blood 126 mm[Hg] 126 mm[Hg] [facility] Body mass index 19.3 kg/m2 19.3 kg/m2 [facility] (BMI) [Ratio] Medical [facility] ter Body weight 70.600719 kg 70.642913 kg [facility] Body temperature 36.502538 36.180389 [facility] Respiratory rate 18 /min 18 /min [facility] Oxygen saturation 97 % 97 % [facility] blood [facility] by Pulse oximetry Heart rate 84 /min 84 /min [facility] Body height 167.630816 167.612255 cm [facility] Diastolic blood 90 mm[Hg] 90 mm[Hg] [facility] Systolic blood 134 mm[Hg] 134 mm[Hg] [facility] Body mass index 24.9 kg/m2 24.9 kg/m2 [facility] (BMI) [Ratio] Medical [facility] Oxygen saturation 96 % 96 % [facility] Arterial blood [facility] by Pulse oximetry Diastolic blood 79 mm[Hg] 79 mm[Hg] [facility] pressure [facility] Center Systolic blood 136 mm[Hg] 136 mm[Hg] [facility] Body temperature 36.554060 36.334614 [facility] Respiratory rate 18 /min 18 /min [facility] Oxygen saturation 94 % 94 % [facility] Arterial blood [facility] by Pulse oximetry Heart rate 85 /min 85 /min [facility] Diastolic blood 82 mm[Hg] 82 mm[Hg] [facility] pressure [facility] Center Systolic blood 145 mm[Hg] 145 mm[Hg] [facility] Body temperature 36.086678 36.502471 [facility] Respiratory rate 19 /min 19 /min [facility] Oxygen saturation 95 % 95 % [facility] Arterial blood [facility] by Pulse oximetry Heart rate 61 /min 61 /min [facility] Diastolic blood 92 mm[Hg] 92 mm[Hg] [facility] pressure [facility] Center Systolic blood 149 mm[Hg] 149 mm[Hg] [facility] Body temperature 36.000511 36.549385 [facility] Respiratory rate 18 /min 18 /min [facility] Oxygen saturation 99 % 99 % [facility] blood [facility] Center by Pulse oximetry Heart rate 96 /min 96 /min [facility] Diastolic blood 95 mm[Hg] 95 mm[Hg] [facility] pressure [facility] Center Systolic blood 126 mm[Hg] 126 mm[Hg] [facility] Body temperature 36.951134 36.176579 [facility] Respiratory rate 18 /min 18 /min [facility] Oxygen saturation 98 % 98 % [facility] Arterial blood [facility] by Pulse oximetry Heart rate 80 /min 80 /min [facility] Diastolic blood 80 mm[Hg] 80 mm[Hg] [facility] Center Systolic blood 124 mm[Hg] 124 mm[Hg] [facility] Body weight 58.107645 kg 58.988803 kg [facility] Body temperature 37.774615 37.330232 [facility] Respiratory rate 17 /min 17 /min [facility] Oxygen saturation 100 % 100 % [facility] Arterial blood [facility] by Pulse oximetry Heart rate 100 /min 100 /min [facility] Body height 167.485693 167.256713 cm [facility] Diastolic blood 79 mm[Hg] 79 mm[Hg] [facility] pressure [facility] Center Systolic blood 129 mm[Hg] 129 mm[Hg] [facility] Body mass index 20.9 kg/m2 20.9 kg/m2 [facility] (BMI) [Ratio] Medical [facility] ter Body temperature 36.034134 36.044528 [facility] Respiratory rate 18 /min 18 /min [facility] Oxygen saturation 98 % 98 % [facility] blood [facility] by Pulse oximetry Heart rate 80 /min 80 /min [facility] Diastolic blood 78 mm[Hg] 78 mm[Hg] [facility] Systolic blood 122 mm[Hg] 122 mm[Hg] [facility] Body temperature 36.766636 36.376067 [facility] Respiratory rate 18 /min 18 /min [facility] Oxygen saturation 98 % 98 % [facility] blood [facility] by Pulse oximetry Heart rate 86 /min 86 /min [facility] Diastolic blood 80 mm[Hg] 80 mm[Hg] [facility] Systolic blood 127 mm[Hg] 127 mm[Hg] [facility] Body temperature 37.592807 37.104940 [facility] Respiratory rate 18 /min 18 /min [facility] Oxygen saturation 96 % 96 % [facility] blood [facility] by Pulse oximetry Heart rate 84 /min 84 /min [facility] Diastolic blood 89 mm[Hg] 89 mm[Hg] [facility] Systolic blood 153 mm[Hg] 153 mm[Hg] [facility] Body temperature 36.628151 36.603730 [facility] Respiratory rate 18 /min 18 /min [facility] Oxygen saturation 98 % 98 % [facility] Arterial blood [facility] by Pulse oximetry Heart rate 64 /min 64 /min [facility] Diastolic blood 91 mm[Hg] 91 mm[Hg] [facility] [place] Systolic blood 169 mm[Hg] 169 mm[Hg] [facility] Body temperature 36.682964 36.096037 [facility] Respiratory rate 18 /min 18 /min [facility] Oxygen saturation 98 % 98 % [facility] Arterial blood [facility] by Pulse oximetry Heart rate 71 /min 71 /min [facility] Diastolic blood 71 mm[Hg] 71 mm[Hg] [facility] Systolic blood 139 mm[Hg] 139 mm[Hg] [facility] Body temperature 36.572806 36.602215 [facility] Respiratory rate 17 /min 17 /min [facility] Oxygen saturation 98 % 98 % [facility] blood [facility] by Pulse oximetry Heart rate 73 /min 73 /min [facility] Diastolic blood 66 mm[Hg] 66 mm[Hg] [facility] Systolic blood 132 mm[Hg] 132 mm[Hg] [facility] Body temperature 37.616206 37.609175 [facility] Respiratory rate 17 /min 17 /min [facility] Oxygen saturation 98 % 98 % [facility] blood [facility] by Pulse oximetry Heart rate 85 /min 85 /min [facility] Diastolic blood 87 mm[Hg] 87 mm[Hg] [facility] Systolic blood 154 mm[Hg] 154 mm[Hg] [facility] Body weight 63.673862 kg 63.520785 kg [facility] Body temperature 37.215907 37.743781 [facility] Respiratory rate 18 /min 18 /min [facility] Oxygen saturation 96 % 96 % [facility] blood [facility] by Pulse oximetry Heart rate 82 /min 82 /min [facility] Body height 172.271560 172.658502 cm [facility] Diastolic blood 90 mm[Hg] 90 mm[Hg] [facility] pressure [facility] Center Systolic blood 146 mm[Hg] 146 mm[Hg] [facility] Body mass index 21.2 kg/m2 21.2 kg/m2 [facility] (BMI) [Ratio] Medical [facility] ter Body temperature 36.503270 36.015137 [facility] Respiratory rate 18 /min 18 /min [facility] Oxygen saturation 97 % 97 % [facility] Arterial blood [facility] by Pulse oximetry Heart rate 69 /min 69 /min [facility] Diastolic blood mm[Hg] [facility] pressure [facility] Center Systolic blood mm[Hg] [facility] Body weight 65.690059 kg 65.639572 kg [facility] Body temperature 36.441462 36.285722 [facility] Respiratory rate 17 /min 17 /min [facility] Oxygen saturation 99 % 99 % [facility] blood [facility] by Pulse oximetry Heart rate 80 /min 80 /min [facility] Body height 167.561739 167.925354 cm [facility] Diastolic blood 78 mm[Hg] 78 mm[Hg] [facility] Systolic blood 123 mm[Hg] 123 mm[Hg] [facility] Body mass index 23.1 kg/m2 23.1 kg/m2 [facility] (BMI) [Ratio] Medical [facility] ter Body weight 63.491793 kg 63.124917 kg [facility] Body temperature 37.736818 37.545497 [facility] Respiratory rate 18 /min 18 /min [facility] Oxygen saturation 93 % 93 % [facility] by Pulse oximetry Heart rate 82 /min 82 /min [facility] Body height 167.212611 167.737177 cm [facility] Diastolic blood 105 mm[Hg] 105 mm[Hg] [facility] pressure [facility] Center Systolic blood 157 mm[Hg] 157 mm[Hg] [facility] Body mass index 22.5 kg/m2 22.5 kg/m2 [facility] (BMI) [Ratio] [facility] Body weight 68.395258 kg 68.408693 kg [facility] Body temperature 36.488256 36.457448 [facility] Respiratory rate 20 /min 20 /min [facility] Oxygen saturation 100 % 100 % [facility] Arterial blood [facility] by Pulse oximetry Heart rate 101 /min 101 /min [facility] Body height 165.702879 165.537542 cm [facility] [place] Diastolic blood 80 mm[Hg] 80 mm[Hg] [facility] pressure [facility] Center Systolic blood 140 mm[Hg] 140 mm[Hg] [facility] Body mass index 24.9 kg/m2 24.9 kg/m2 [facility] (BMI) [Ratio] Medical [facility] ter Body temperature 36.548171 36.473909 [facility] Respiratory rate 18 /min 18 /min [facility] Oxygen saturation 97 % 97 % [facility] Arterial blood [facility] by Pulse oximetry Heart rate 88 /min 88 /min [facility] Diastolic blood 78 mm[Hg] 78 mm[Hg] [facility] pressure [facility] Systolic blood 145 mm[Hg] 145 mm[Hg] [facility] Body temperature 36.401147 36.324797 [facility] Respiratory rate 19 /min 19 /min [facility] Oxygen saturation 97 % 97 % [facility] blood [facility] by Pulse oximetry Heart rate 94 /min 94 /min [facility] Diastolic blood 86 mm[Hg] 86 mm[Hg] [facility] Systolic blood 148 mm[Hg] 148 mm[Hg] [facility] Body temperature 36.352403 36.168935 [facility] Oxygen saturation 99 % 99 % [facility] blood [facility] by Pulse oximetry Heart rate 89 /min 89 /min [facility] Body weight 77.415317 kg 77.238841 kg [facility] Body temperature 37.063167 37.452662 [facility] Respiratory rate 18 /min 18 /min [facility] Oxygen saturation 97 % 97 % [facility] Arterial blood [facility] by Pulse oximetry Heart rate 99 /min 99 /min [facility] Body height 165.386057 165.735689 cm [facility] Diastolic blood 87 mm[Hg] 87 mm[Hg] [facility] Center Systolic blood 145 mm[Hg] 145 mm[Hg] [facility] Body mass index 28.2 kg/m2 28.2 kg/m2 [facility] (BMI) [Ratio] Medical [facility] ter Body temperature 36.754037 36.333356 [facility] Respiratory rate 17 /min 17 /min [facility] Oxygen saturation 98 % 98 % [facility] Arterial blood [facility] by Pulse oximetry Heart rate 103 /min 103 /min [facility] Diastolic blood 81 mm[Hg] 81 mm[Hg] [facility] Systolic blood 128 mm[Hg] 128 mm[Hg] [facility] Body weight 58.032270 kg 58.596321 kg [facility] Body temperature 36.959572 36.296295 [facility] Respiratory rate 17 /min 17 /min [facility] Oxygen saturation 99 % 99 % [facility] blood [facility] by Pulse oximetry Heart rate 112 /min 112 /min [facility] Body height 167.632244 167.211764 cm [facility] Diastolic blood 90 mm[Hg] 90 mm[Hg] [facility] Systolic blood 122 mm[Hg] 122 mm[Hg] [facility] Body mass index 20.9 kg/m2 20.9 kg/m2 [facility] (BMI) [Ratio] Medical [facility] ter Body temperature 36.140692 36.018228 [facility] Respiratory rate 16 /min 16 /min [facility] Oxygen saturation 98 % 98 % [facility] Arterial blood [facility] by Pulse oximetry Heart rate 73 /min 73 /min [facility] Diastolic blood 73 mm[Hg] 73 mm[Hg] [facility] Center Systolic blood 154 mm[Hg] 154 mm[Hg] [facility] Body weight 72.646019 kg 72.012209 kg [facility] Body temperature 36.968643 36.558021 [facility] Respiratory rate 20 /min 20 /min [facility] Oxygen saturation 96 % 96 % [facility] blood [facility] by Pulse oximetry Heart rate 72 /min 72 /min [facility] Body height 167.361633 167.955358 cm [facility] Diastolic blood 80 mm[Hg] 80 mm[Hg] [facility] pressure [facility] Center Systolic blood 136 mm[Hg] 136 mm[Hg] [facility] Body mass index 25.8 kg/m2 25.8 kg/m2 [facility] (BMI) [Ratio] Medical [facility] ter Body temperature 36.339105 36.739535 [facility] Respiratory rate 16 /min 16 /min [facility] Oxygen saturation 96 % 96 % [facility] blood [facility] by Pulse oximetry Heart rate 74 /min 74 /min [facility] Diastolic blood 79 mm[Hg] 79 mm[Hg] [facility] pressure [facility] Center Systolic blood 136 mm[Hg] 136 mm[Hg] [facility] Body temperature 37.899069 37.444813 [facility] Body weight 65.861806 kg 65.046138 kg [facility] Body temperature 36.050630 36.545179 [facility] Respiratory rate 17 /min 17 /min [facility] Oxygen saturation 99 % 99 % [facility] by Pulse oximetry Heart rate 102 /min 102 /min [facility] Diastolic blood 51 mm[Hg] 51 mm[Hg] [facility] Systolic blood 134 mm[Hg] 134 mm[Hg] [facility] Body weight 72.474616 kg 72.350813 kg [facility] Body temperature 36.251144 36.708825 [facility] Respiratory rate 17 /min 17 /min [facility] Oxygen saturation 98 % 98 % [facility] blood [facility] by Pulse oximetry Heart rate 90 /min 90 /min [facility] Body height 157.886372 157.990750 cm [facility] Diastolic blood 98 mm[Hg] 98 mm[Hg] [facility] pressure [facility] Center Systolic blood 136 mm[Hg] 136 mm[Hg] [facility] Body mass index 29.2 kg/m2 29.2 kg/m2 [facility] (BMI) [Ratio] [facility] Body temperature 36.365692 36.732910 [facility] Respiratory rate 19 /min 19 /min [facility] Oxygen saturation 97 % 97 % [facility] Arterial blood [facility] by Pulse oximetry Heart rate 78 /min 78 /min [facility] Diastolic blood 99 mm[Hg] 99 mm[Hg] [facility] Systolic blood 152 mm[Hg] 152 mm[Hg] [facility] Body temperature 36.691638 36.704813 [facility] Respiratory rate 18 /min 18 /min [facility] Oxygen saturation 98 % 98 % [facility] Arterial blood [facility] by Pulse oximetry Heart rate 80 /min 80 /min [facility] Diastolic blood 78 mm[Hg] 78 mm[Hg] [facility] pressure [facility] Systolic blood 112 mm[Hg] 112 mm[Hg] [facility] Body temperature 36.695285 36.322493 [facility] Respiratory rate 18 /min 18 /min [facility] Oxygen saturation 98 % 98 % [facility] Arterial blood [facility] by Pulse oximetry Heart rate 87 /min 87 /min [facility] Diastolic blood 67 mm[Hg] 67 mm[Hg] [facility] Systolic blood 115 mm[Hg] 115 mm[Hg] [facility] Body temperature 36.078250 36.527242 [facility] Respiratory rate 18 /min 18 /min [facility] Oxygen saturation 98 % 98 % [facility] Arterial blood [facility] by Pulse oximetry Heart rate 71 /min 71 /min [facility] Diastolic blood 78 mm[Hg] 78 mm[Hg] [facility] Systolic blood 131 mm[Hg] 131 mm[Hg] [facility] Body temperature 36.903144 36.774461 [facility] Respiratory rate 18 /min 18 /min [facility] Oxygen saturation 100 % 100 % [facility] Arterial blood [facility] by Pulse oximetry Heart rate 78 /min 78 /min [facility] Diastolic blood 73 mm[Hg] 73 mm[Hg] [facility] pressure [facility] [place] Systolic blood 138 mm[Hg] 138 mm[Hg] [facility] Body weight 72.074975 kg 72.422217 kg [facility] Body temperature 36.867701 36.421656 [facility] Respiratory rate 17 /min 17 /min [facility] Oxygen saturation 99 % 99 % [facility] Arterial blood [facility] by Pulse oximetry Heart rate 66 /min 66 /min [facility] Diastolic blood 90 mm[Hg] 90 mm[Hg] [facility] Systolic blood 158 mm[Hg] 158 mm[Hg] [facility] Body temperature 36.686823 36.547800 [facility] Respiratory rate 19 /min 19 /min [facility] Oxygen saturation 98 % 98 % [facility] Arterial blood [facility] by Pulse oximetry Heart rate 81 /min 81 /min [facility] Diastolic blood 77 mm[Hg] 77 mm[Hg] [facility] Systolic blood 132 mm[Hg] 132 mm[Hg] [facility] Body temperature 36.464895 36.062297 [facility] Respiratory rate 18 /min 18 /min [facility] Oxygen saturation 97 % 97 % [facility] in Arterial blood [facility] Center by Pulse oximetry Heart rate 70 /min 70 /min [facility] Diastolic blood 84 mm[Hg] 84 mm[Hg] [facility] Systolic blood 128 mm[Hg] 128 mm[Hg] [facility] Body temperature 36.847274 36.668319 [facility] Respiratory rate 17 /min 17 /min [facility] Oxygen saturation 96 % 96 % [facility] Arterial blood [facility] by Pulse oximetry Heart rate 72 /min 72 /min [facility] Diastolic blood 76 mm[Hg] 76 mm[Hg] [facility] pressure [facility] Center Systolic blood 126 mm[Hg] 126 mm[Hg] [facility] Body temperature 36.723791 36.646731 [facility] Respiratory rate 18 /min 18 /min [facility] Heart rate 70 /min 70 /min [facility] Diastolic blood 76 mm[Hg] 76 mm[Hg] [facility] pressure [facility] Center Systolic blood 131 mm[Hg] 131 mm[Hg] [facility] Body weight 61.992894 kg 61.720967 kg [facility] Body temperature 36.453526 36.071905 [facility] Respiratory rate 18 /min 18 /min [facility] Oxygen saturation 97 % 97 % [facility] blood [facility] by Pulse oximetry Heart rate 70 /min 70 /min [facility] Body height 167.974517 167.208133 cm [facility] Diastolic blood 79 mm[Hg] 79 mm[Hg] [facility] Systolic blood 130 mm[Hg] 130 mm[Hg] [facility] Body mass index 21.7 kg/m2 21.7 kg/m2 [facility] (BMI) [Ratio] Medical [facility] ter Body weight 64.914378 kg 64.957976 kg [facility] Body temperature 36.712563 36.594278 [facility] Respiratory rate 20 /min 20 /min [facility] Oxygen saturation 9 % 9 % [facility] blood [facility] by Pulse oximetry Heart rate 75 /min 75 /min [facility] Body height 167.388926 167.235369 cm [facility] Diastolic blood 97 mm[Hg] 97 mm[Hg] [facility] Systolic blood 144 mm[Hg] 144 mm[Hg] [facility] Body mass index 22.7 kg/m2 22.7 kg/m2 [facility] (BMI) [Ratio] Medical [facility] ter Body temperature 37.587473 37.805652 [facility] Respiratory rate 18 /min 18 /min [facility] Oxygen saturation 96 % 96 % [facility] Arterial blood [facility] Center by Pulse oximetry Heart rate 98 /min 98 /min [facility] Diastolic blood 67 mm[Hg] 67 mm[Hg] [facility] [place] Systolic blood 114 mm[Hg] 114 mm[Hg] [facility] Center Body temperature 36.046110 36.245123 [facility] Respiratory rate 18 /min 18 /min [facility] Oxygen saturation 97 % 97 % [facility] Ar[facility] by Pulse oximetry Heart rate 105 /min 105 /min [facility] Diastolic blood 65 mm[Hg] 65 mm[Hg] [facility] [place] Systolic blood 107 mm[Hg] 107 mm[Hg] [facility] Body temperature 36.777596 36.216428 [facility] Respiratory rate 18 /min 18 /min [facility] Oxygen saturation 98 % 98 % [facility] blood [facility] by Pulse oximetry Heart rate 87 /min 87 /min [facility] Diastolic blood 78 mm[Hg] 78 mm[Hg] [facility] Systolic blood 139 mm[Hg] 139 mm[Hg] [facility] Body temperature 36.522606 36.845631 [facility] Respiratory rate 20 /min 20 /min [facility] Oxygen saturation 95 % 95 % [facility] blood [facility] by Pulse oximetry Heart rate 91 /min 91 /min [facility] Diastolic blood 88 mm[Hg] 88 mm[Hg] [facility] Systolic blood 136 mm[Hg] 136 mm[Hg] [facility] Body temperature 36.182690 36.255032 [facility] Respiratory rate 17 /min 17 /min [facility] Oxygen saturation 98 % 98 % [facility] blood [facility] by Pulse oximetry Heart rate 80 /min 80 /min [facility] Diastolic blood 86 mm[Hg] 86 mm[Hg] [facility] [place] Systolic blood 139 mm[Hg] 139 mm[Hg] [facility] Body temperature 36.356190 36.948713 [facility] Respiratory rate 18 /min 18 /min [facility] Oxygen saturation 97 % 97 % [facility] Arter[facility] blood [facility] by Pulse oximetry Heart rate 86 /min 86 /min [facility] Diastolic blood 88 mm[Hg] 88 mm[Hg] [facility] pressure [facility] Systolic blood 145 mm[Hg] 145 mm[Hg] [facility] Body weight 75.178973 kg 75.833673 kg [facility] Center Body temperature 36.328197 36.061336 [facility] Respiratory rate 19 /min 19 /min [facility] Oxygen saturation 98 % 98 % [facility] Arterial blood [facility] Center by Pulse oximetry Heart rate 88 /min 88 /min [facility] Body height 165.224452 165.530397 cm [facility] Diastolic blood 84 mm[Hg] 84 mm[Hg] [facility] Systolic blood 144 mm[Hg] 144 mm[Hg] [facility] Body mass index 27.5 kg/m2 27.5 kg/m2 [facility] (BMI) [Ratio] [facility] [address] Body temperature 36.807697 36.983773 [facility] Respiratory rate 18 /min 18 /min [facility] Oxygen saturation 97 % 97 % [facility] Arterial blood [facility] Center by Pulse oximetry Heart rate 90 /min 90 /min [facility] Diastolic blood 93 mm[Hg] 93 mm[Hg] [facility] Systolic blood 138 mm[Hg] 138 mm[Hg] [facility] Body temperature 36.673688 36.060275 [facility] Respiratory rate 18 /min 18 /min [facility] Oxygen saturation 97 % 97 % [facility] Arterial blood [facility] Center by Pulse oximetry Heart rate 19 /min 19 /min [facility] Diastolic blood 74 mm[Hg] 74 mm[Hg] [facility] Systolic blood 134 mm[Hg] 134 mm[Hg] [facility] Patient Treatment Plan of Care Planned Activity Planned Date Details Description Data Source (s) Ibuprofen 600 MG Oral [facility]
== END 2020-03-13 01:20 | disposition short-term general hospital (02) ==
LOC: JER 21:41
DX: F10.99 Alcohol use, unspecified with unspecified alcohol-induced disorder (principal)
CPT/HCPCS: 70450-TC; 72125-TC; 99284-25

== ENCOUNTER 2020-03-13 01:16 | Inpatient (IN) | payer OTHER ==
[2020-03-13 01:22] VITALS: BMI 22.2
--- NOTE | 2020-03-13 01:28 | HP ---
CIWA Score Nausea/Vomitin Muscle Tremors: 4-Moderate,w/Arms Extend Anxiety: 3 Agitation: 4-Moderately Restless Paroxysmal Sweats: 3 Orientation: 0-Oriented Tacttile Disturbances: 0-None Auditory Disturbances: 0-None Visual Disturbances: 0-None Headache: 0-None Present CIWA-Ar Total Score: 16 - Admission Criteria OASAS Guidelines: Admission for Medically Managed Detox: Requires at least one of the followin. CIWA greater than 12 2. Seizures within the past 24 hours 3. Delirium tremens within the past 24 hours 4. Hallucinations within the past 24 hours 5. Acute intervention needed for co occurring medical disorder 6. Acute intervention needed for co occurring psychiatric disorder 7. Severe withdrawal that cannot be handled at a lower level of care (continued vomiting, continued diarrhea, abnormal vital signs) requiring intravenous medication and/or fluids 8. Admitting History and Physical - Past Medical History Pulmonary: Yes: COPD Gastrointestinal: Yes: Constipation Heme/Onc: Yes: Anemia Infectious Disease: Yes: Other (positive ppd treated) Psych: Yes: Addictions, Bipolar, Depression, Other (Schizoaffective disorder) Musculoskeletal: Yes: Osteoarthritis Rheumatology: Yes: Gout - Smoking History Smoking history: Current every day smoker Have you smoked in the past 12 months: Yes Aproximately how many cigarettes per day: 20 - Alcohol/Substance Use Hx Alcohol Use: Yes Number of Drinks Daily: 18 History of Substance Use: reports: Marijuana Date of Last Use: 02/18/20 - Social History ADL: Independent History of Recent Travel: No Admission ROS [facility] Chief Complaint: Alcohol withdrawal symptoms Allergies/Adverse Reactions: Allergies Allergy/AdvReac Type Severity Reaction Status Date / Time No Known Allergies Allergy Verified 03/12/20 22:04 History of Present Illness: 60 years old male with a long history of alcohol dependence is seeking admission to detox. Patient has been admitted to [facility] multiple times and is well known to the facility, last admission was for the period 01/29/2020-02/03/2020. He reports that he drinks 2 pints vodka and 2 x 6 pack 24oz. beer daily. He has medical history of left ear hearing loss, gout, PPD positive, borderline Diabetes, back pain and psych. history of depression and schizophrenia. Patient denies suicidal ideation at this time. He is unemployed, lives with his sister and denies legal issues. 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 Patient was sent to ER yesterday secondary to a witnessed fall. As per Dr. De Dios, CT scan of the head and cervical spine was negative. His JON was 0.269 and is now 0.170 and CIWA score is 16. Exam Limitations: No Limitations - Ebola screening Have you traveled outside of the country in the last 21 days: No Have you had contact with anyone from an Ebola affected area: No Have you been sick,other than usual withdrawal symptoms: No Do you have a fever: No - Review of Systems Constitutional: Chills, Malaise, Changes in sleep EENT: reports: No Symptoms Reported Respiratory: reports: No Symptoms reported Cardiac: reports: No Symptoms Reported GI: reports: Diarrhea (x 2), Nausea, Poor Appetite, Poor Fluid Intake, Abdominal cramping : reports: No Symptoms Reported Musculoskeletal: reports: Back Pain, Joint Pain Integumentary: reports: Dryness, Flushing Neuro: reports: Tremors Endocrine: reports: No Symptoms Reported Hematology: reports: No Symptoms Reported Psychiatric: reports: Mood/Affect Appropiate, Orientated x3 Other Systems: Reviewed and Negative Patient History - Patient Medical History Hx Anemia: No Hx Asthma: No Hx Chronic Obstructive Pulmonary Disease (COPD): No Hx Cancer: No Hx Cardiac Disorders: No Hx Congestive Heart Failure: No Hx Hypertension: No Hx Hypercholesterolemia: No Hx Pacemaker: No HX Cerebrovascular Accident: No Hx Seizures: No Hx Dementia: No Hx Diabetes: Yes (Borderline DM) Hx Gastrointestinal Disorders: No Hx Liver Disease: No Hx Genitourinary Disorders: No Hx Sexually Transmitted Disorders: No Hx Renal Disease (ESRD): No Hx Thyroid Disease: No Hx Human Immunodeficiency Virus (HIV): No (Negative June 2018) Hx Hepatitis C: No Hx Depression: Yes Hx Suicide Attempt: No Hx Bipolar Disorder: No Hx Schizophrenia: Yes Other Medical History: Gout, left ear hearing loss, PPD positive, back pain - Patient Surgical History Past Surgical History: Yes Hx Neurologic Surgery: No Hx Cataract Extraction: No Hx Cardiac Surgery: No Hx Lung Surgery: No Hx Breast Surgery: No Hx Breast Biopsy: No Hx Abdominal Surgery: No Hx Appendectomy: No Hx Cholecystectomy: No Hx Genitourinary Surgery: No Hx Section: No Hx Orthopedic Surgery: Yes (LEFT KNEE SURGERY 1984) Anesthesia Reaction: No - PPD History Previous Implant?: No Implanted On Prior [facility] Admission?: No Results: 07/09/18NEG CXR PPD to be Administered?: No - Reproductive History Patient is a Female of Child Bearing Age (11 -55 yrs old): No (Male) - Smoking Cessation Smoking history: Current every day smoker Have you smoked in the past 12 months: Yes Aproximately how many cigarettes per day: 20 Cigars Per Day: 1 Hx Chewing Tobacco Use: No Initiated information on smoking cessation: Yes 'Breaking Loose' booklet given: 03/13/20 - Substance & Tx. History Hx Alcohol Use: Yes Hx Substance Use: Yes Substance Use Type: Alcohol, Marijuana Hx Substance Use Treatment: Yes ([facility]) - Substances abused Alcohol Substance route: Oral Frequency: Daily Amount used: 2 pints vodka and 2 x 6 pack 24oz. beer Age of first use: 7 Date of last use: 03/12/20 Admission Physical Exam [facility] - Vital Signs Vital Signs: Vital Signs - 24 hr 03/13/20 01:20 Temperature 97.8 F Pulse Rate 79 Respiratory 18 Rate Blood Pressure 135/81 - Physical General Appearance: Yes: Moderate Distress, Tremorous, Sweating, Anxious HEENTM: Yes: Within Normal Limits Respiratory: Yes: Lungs Clear, Normal Breath Sounds, No Respiratory Distress Neck: Yes: Within Normal Limits Breast: Yes: Breast Exam Deferred Cardiology: Yes: Within Normal Limits Abdominal: Yes: Normal Bowel Sounds Genitourinary: Yes: Within Normal Limits Back: Yes: Normal Inspection Musculoskeletal: Yes: Back pain, Muscle Pain Extremities: Yes: Tremors Neurological: Yes: Within Normal Limits Integumentary: Yes: Warm Lymphatic: Yes: Within Normal Limits - Diagnostic (1) Alcohol dependence with uncomplicated withdrawal Current Visit: Yes Status: Acute (2) Back pain Current Visit: Yes Status: Chronic Qualifiers: Back pain location: back pain in unspecified location Chronicity: unspecified Back pain laterality: unspecified Qualified Code(s): M54.9 - Dorsalgia, unspecified (3) Borderline diabetes mellitus Current Visit: Yes Status: Chronic (4) Gout Current Visit: Yes Status: Chronic Qualifiers: Gout site: unspecified site Gout etiology: unspecified cause Chronicity: unspecified Qualified Code(s): M10.9 - Gout, unspecified (5) Hearing loss in left ear Current Visit: Yes Status: Chronic (6) Nicotine dependence Current Visit: Yes Status: Chronic Qualifiers: Nicotine product type: cigarettes Substance use status: uncomplicated Qualified Code(s): F17.210 - Nicotine dependence, cigarettes, uncomplicated (7) Positive PPD, treated Current Visit: No Status: Resolved (8) Bipolar disorder Current Visit: Yes Status: Chronic Cleared for Admission S - Detox or Rehab [facility] Level of Care: Medically Managed Detox Regimen/Protocol: Librium Claeared for Rehab Admission: No Breathalyzer - Breathalyzer Breathalyzer: 0.170 Urine Drug Screen - Test Device Lot number: [id number] Expiration date: 09/18/21 - Control Is test valid?: Yes - Results Drug screen NEGATIVE: No Urine drug screen results: THC-Marijuana, BZO-Benzodiazepines Inpatient Rehab Admission - Rehab Decision to Admit Inpatient rehab admission?: No
[2020-03-13] MEDS ORDERED: MENTHOL/PHENOL 1 EACH UD MM PRN (01:52)
[2020-03-13] MEDS ORDERED: NICOTINE POLACRILEX 2 MG GUM BUC PRN (01:52)
[2020-03-13] MEDS ORDERED: METHOCARBAMOL 500 MG TABLET PO PRN (01:52)
[2020-03-13] MEDS ORDERED: MAGNESIUM CITRATE 300 ML BOTTLE PO PRN (01:52)
[2020-03-13] MEDS ORDERED: chlordiazePOXIDE HCL 25 MG CAPSULE PO PRN (01:52)
[2020-03-13] MEDS ORDERED: MAGNESIUM HYDROX 2400MG/30ML ORAL SUSPENSION 30 ML CUP PO PRN (01:52)
[2020-03-13] MEDS ORDERED: BISMUTH SUBSALICYLATE 524 MG/30 ML UD PO PRN (01:52)
[2020-03-13] MEDS ORDERED: MAG HYDROX/AL HYDROX/SIMETH 30 ML UNIT-DOSE CUP PO PRN (01:52)
[2020-03-13] MEDS ORDERED: ONDANSETRON *ODT* 4 MG TABLET SL PRN (01:52)
[2020-03-13] MEDS ORDERED: ACETAMINOPHEN 325 MG TABLET (FP) PO PRN (01:52)
[2020-03-13] MEDS: ACETAMINOPHEN 325 MG TABLET (FP) PO PRN (02:29)
[2020-03-13] MEDS: chlordiazePOXIDE HCL 25 MG CAPSULE PO SCH ×4 (05:22→22:12)
[2020-03-13] MEDS: hydrOXYzine PAMOATE 25 MG CAPSULE (FP) PO PRN (05:22)
--- OUTSIDE RECORDS SUMMARY | 2020-03-13 07:34 | XMS ---
:1960 Author Organization [facility] Care Team Providers Name Role Phone ED STAFF PHYSICIAN Unavailable Unavailable ED STAFF PHYSICIAN Unavailable Unavailable ANDREW Ulrich Unavailable Unavailable RHONDA PONCE Unavailable Unavailable CHRISS العراقي Unavailable Unavailable ED STAFF PHYSICIAN, STAFF Unavailable Unavailable ED STAFF PHYSICIAN Unavailable Unavailable ED STAFF PHYSICIAN Unavailable Unavailable ZUNASSIGNED Unavailable Unavailable [facility] WJ[facility] Unavailable Unavailable ZAMZAM BALBUENA Unavailable [...] is protected by Article 27-F of the [facility] Public Health law. If you continue you may haveaccess to information: Regarding HIV / AIDS; Provided by facilities licensed or operated by the [facility] Office of Mental Health; or Provided by the [facility] Office for People With Developmental Disabilities. If such information is present, then the following [facility] mandated warning applies: This information [...] law may result in a fine or custodial sentence or both. A general authorization for the release of medical or other information is NOT sufficient authorization for further disclosure. Allergies and Adverse Reactions Type Description Substance Reaction Status Data Source(s ) Drug allergy No Known Drug No Known Drug [facility] Encounters Encounter Providers Location Date Indications Data Source(s ) Emergency Attender: ED STAFF H 03/12/2020 [facility] PHYSICIANAttender: 06:47:00 PM [facility] STAFF ED STAFF EDT - PHYSICIANAdmitter: ED 03/12/2020 STAFF 08:00:00 PM PHYSICIANReferrer: EDT ZUNASSIGNED Patient discharged. Emergency Attender: ZAMZAM WYMAN 03/09/2020 04:36 :00 PM [facility] CAttender: STAFF ED STAFF EDT - 03/09/2020 [facility] PHYSICIANAdmitter: ZAMZAM 08:28:00 PM EDT ABDULKADIR WYMAN CReferrer: STAFF ED STAFF PHYSICIAN Patient discharged. Emergency Attender: ED STAFF 03/01/2020 05:48:00 PM [facility] PHYSICIANAttender: STAFF ED EDT - 03/01/2020 [facility] STAFF PHYSICIANAdmitter: ED 09:25:00 PM EDT STAFF PHYSICIANReferrer: STAFF ED STAFF PHYSICIAN Patient discharged. Emergency Attender: ED STAFF 02/24/2020 05:55:00 PM [facility] PHYSICIANAttender: STAFF ED EDT - 02/24/2020 [facility] STAFF PHYSICIANAdmitter: ED 10:42:00 PM EDT STAFF PHYSICIANReferrer: STAFF ED STAFF PHYSICIAN Patient discharged. Emergency Attender: ED STAFF H 02/20/2020 09:36:00 PM [facility] PHYSICIANAttender: STAFF ED EDT - 02/21/2020 [facility] STAFF PHYSICIANAdmitter: ED 07:13:00 AM EDT STAFF PHYSICIAN Patient discharged. Emergency Attender: ED STAFF H 02/18/2020 10:18:00 PM [facility] PHYSICIANAttender: ED STAFF EDT - 02/18/2020 [facility] PHYSICIANAttender: STAFF ED 11:23:00 PM EDT STAFF PHYSICIANAdmitter: ED STAFF PHYSICIAN Patient discharged. Emergency Attender: ED STAFF H 02/18/2020 03:32:00 PM [facility] PHYSICIANAttender: STAFF ED EDT - 02/18/2020 [facility] STAFF PHYSICIANAdmitter: ED 11:24:00 PM EDT STAFF PHYSICIANReferrer: STAFF ED STAFF PHYSICIAN Patient discharged. Emergency Attender: ZAMZAM Silverman 02/17/2020 03:33 :00 PM [facility] STAFF EDT - 02/17/2020 [facility] PHYSICIANAdmitter: ZAMZAM 04:36:00 PM EDT ABDULKADIR WYMAN CReferrer: STAFF ED STAFF PHYSICIAN Patient discharged. Emergency Attender: ZAMZAM Silverman 02/15/2020 02:57 :00 PM [facility]: STAFF ED STAFF EDT - 02/15/2020 [facility] PHYSICIANAdmitter: ZAMZAM 06:44:00 PM EDT ABDULKADIR Herrera Patient discharged. Emergency Attender: ZAMZAM Silverman 01/29/2020 04:10 :00 PM [facility]: STAFF ED STAFF EDT - 01/29/2020 [facility] PHYSICIANAdmitter: ZAMZAM 05:19:00 PM EDT ABDULKADIR Herrera Patient discharged. Emergency Attender: STAFF ED STAFF 01/12/2020 05:43:00 PM [facility] PHYSICIANReferrer: STAFF ED EDT - 01/12/2020 [facility] STAFF PHYSICIAN 08:26:00 PM EDT Patient discharged. Emergency Attender: ZAMZAM Silverman 01/10/2020 04:39 :00 PM [facility] ED STAFF EDT - 01/10/2020 [facility] PHYSICIANAdmitter: ZAMZAM 09:11:00 PM EDT ABDULKADIR Herrera Patient discharged. Emergency Attender: STAFF ED STAFF H 12/26/2019 10:55:00 PM [facility] PHYSICIAN EDT - 12/27/2019 03:29:00 Center AM EDT Patient discharged. Emergency Attender: CHRISS Silverman 12/25/2019 02:01 :00 PM [facility]: STAFF ED STAFF EDT - 12/25/2019 [facility] PHYSICIANAdmitter: CHRISS 02:29:00 PM EDT ISAURAO CHRISS S Patient discharged. Emergency Attender: ZAMZAM Silverman 12/20/2019 07:25 :00 PM [facility] STAFF EDT - 12/21/2019 [facility] PHYSICIANAttender: STAFF ED 01:07:00 AM EDT STAFF PHYSICIANAdmitter: ZAMZAM Herrera Patient discharged. Emergency Attender: ED STAFF H 12/14/2019 10:47:00 AM [facility] PHYSICIANAttender: STAFF ED EDT - 12/14/2019 [facility] STAFF PHYSICIANAdmitter: ED 03:40:00 PM EDT STAFF PHYSICIAN Patient discharged. Emergency Attender: ZAMZAM Silverman 12/11/2019 07:57 :00 PM [facility] ED STAFF EDT - 12/11/2019 [facility] PHYSICIANAdmitter: ZAMZAM 10:14:00 PM EDT ABDULKADIR Herrera Patient discharged. Emergency Attender: RHONDA HUANG 12/08/2019 05:19:00 PM [facility] ROMANttender: STAFF ED EDT - 12/08/2019 [facility] STAFF PHYSICIANAdmitter: 06:44:00 PM EDT RHONDA BARROSOTUS BOWENRADHAJamie Patient discharged. Emergency Attender: STAFF ED STAFF 11/30/2019 07:50:00 PM [facility] Medical PHYSICIAN EDT - 12/01/2019 12:41:00 Center AM EDT Patient discharged. Emergency Attender: ED STAFF H 11/28/2019 06:37:00 PM [facility] PHYSICIANAttender: STAFF ED EDT - 11/28/2019 [facility] STAFF PHYSICIANAdmitter: ED 10:35:00 PM EDT STAFF PHYSICIAN Patient discharged. Emergency Attender: ZAMZAM Silverman 11/15/2019 05:23 :00 PM [facility] Lexie: STAFF ED STAFF EDT - 11/15/2019 [facility] PHYSICIANAdmitter: ZAMZAM 09:35:00 PM EDT ABDULKADIR Herrera Patient discharged. Emergency Attender: ED STAFF H 10/22/2019 03:10:00 PM [facility] PHYSICIANAttender: STAFF ED EDT - 10/22/2019 [facility] STAFF PHYSICIANAdmitter: ED 06:05:00 PM EDT STAFF PHYSICIAN Patient discharged. Outpatient Attender: [id number] HV 07/31/2019 01:13:58 PM [facility] Patient admitted. Emergency Attender: ED STAFF H 07/13/2019 05:47:00 PM [facility] PHYSICIANAttender: ANDREW EST - 07/14/2019 [facility] AUGIE Drew: STAFF ED 06:43:00 AM EST STAFF PHYSICIANAdmitter: ED STAFF PHYSICIAN Patient discharged. Emergency Attender: RHONDA HUANG H 05/11/2019 08:09:00 PM [facility] JESSIGINEAttender: ED STAFF EST - 05/12/2019 [facility] PHYSICIANAttender: STAFF ED 04:36:00 AM EST STAFF PHYSICIANAdmitter: RHONDA ELLIS Patient discharged. Emergency H 04/06/2019 05:58:00 PM EDT - [address] [place] [address] 09:41:00 PM EDT Patient discharged. Emergency H 2019 09:47:00 PM EDT - [address] [place] [address] 03:00:00 PM EDT Patient discharged. Emergency H 2019 02:17:00 PM EDT - [address] [place] [address] 09:58:00 PM EDT Patient discharged. Emergency H 02/28/2019 03:30:00 PM EDT - [address] [place] [address] 06:39:00 PM EDT Patient discharged. Emergency H 02/12/2019 05:18:00 PM EDT - [address] [place] [address] 09:22:00 PM EDT Patient discharged. Emergency H 01/28/2019 12:00:00 AM EDT - [address] [place] [address] 06:45:00 AM EDT Patient discharged. Emergency H 01/23/2019 08:14:00 PM EDT - [address] [place] [address] 01:34:00 AM EDT Patient discharged. Emergency H 12/27/2018 09:32:00 PM EDT [facility] Emergency H 12/25/2018 12:16:00 AM EDT [facility] Emergency H 12/24/2018 05:25:00 PM EDT [facility] Emergency H 12/22/2018 06:33:00 PM EDT [facility] Emergency H 10/03/2018 09:25:00 PM EDT [facility] Emergency H 09/17/2018 07:31:00 PM EDT [facility] Emergency H 09/17/2018 05:10:00 PM EDT [facility] Emergency H 07/27/2018 05:50:00 PM EST [facility] Immunizations Vaccine Date Status Description Data Source(s) Tdap 09/13/2017 08:11:00 PM EDT completed [facility] Medications Medication Brand Start Product Dose Route Administrative Pharmacy [facility] Indications Reaction Description Data Name Date Form Instructions Instructions Source(s) Ibuprofen ibupro 1 complet [facility] 600 MG Oral fen [facility] Tablet 600 mg Medical ibuprofen Tablet Center 600 mg , Tablet, Ordere Ordered By: d By: mariama Preston PADleandro Wells s: 1 tablet a, oral every PADire six hours ctions PRN pain : 1 tablet oral every six hours PRN pain Insurance Providers Payer name Policy type Policy ID Covered Covered green party's Policy P [place] / Coverage green party ID relationship to [place] ormation type [place] [facility] [id number] SP [id number] HEALTH NON CAP MEDICAID [id number] SP [id number] [facility] [id number] SAW [id number] SP [id number] 600 HEALTH NON CAP [facility] [id number] SP [id number] HEALTH NON CAP Problems, Conditions, and Diagnoses Code Display Name Description Problem Type Effective Data Dates Source(s) Z53.20 Procedure and PROC/TRTMT NOT CRD Diagnosis 03/09/2020 Anurag nt Joshua treatment not OUT BEC PT 04:36:00 PM Medical carried out DECISION FOR [facility] EDT Center because of REASONS patient's decision for unspecified reasons F10.20 Alcohol ALCOHOL Diagnosis 03/09/2020 [facility] dependence, DEPENDENCE, 04:36:00 PM Medical uncomplicated UNCOMPLICATED EDT Center F10.129 Alcohol abuse with ALCOHOL ABUSE WITH Diagnosis 0 [facility] intoxication, INTOXICATION, 04:36:00 PM Medical unspecified UNSPECIFIED EDT Center F17.210 Nicotine NICOTINE Diagnosis 03/01/2020 [facility] dependence, DEPENDENCE, 05:48:00 PM Medical cigarettes, CIGARETTES, EDT Center uncomplicated UNCOMPLICATED I10 Essential ESSENTIAL Diagnosis 03/01/2020 [facility] (primary) (PRIMARY) 05:48:00 PM Medical hypertension HYPERTENSION EDT Center R40.5070 Omi coma scale OMI COMA SCALE Diagnosis [...] ical carried out due to SEEN BY [facility] EDT Center patient leaving [place] prior to [...] M25.569 Pain in PAIN IN Diagnosis 10/22/2019 [facility] unspecified knee UNSPECIFIED KNEE 03:10:00 PM edical EDT Center Z00.00 Encounter for ENCNTR FOR GENERAL Diagnosis 01/28/2019 [facility] general adult ADULT MEDICAL EXAM 12:00:00 AM Ne dical medical W/O ABNORMAL EDT Center examination FINDINGS without abnormal findings Results ID Date Data Source HematologyRou.[id number] 02/15/2020 05:09:00 PM EDT [facility] 0400 Name Value Range Interpretation Description [...] ics"> (8.0-11.0 [place])</content> ID Date Data Source GFR(Creatinine).[id number] 02/15/2020 05:09:00 PM EDT [facility] 0-0400 Name Value Range Interpretation Code Description Data Alyson rce(s) Supporting Document(s ) UNK > 60 <content [facility] styleCode="Bold"> Medical Cent er EGFR </content>127 GFR<content styleCode="Italic s"> (> 60 GFR)</content> ID Date Data Source [facility].[id number] 02/15/2020 05:09:00 PM EDT [facility] Name Value Range Interpretation Description Data [...] (0.5-1.3 MG/DL)</conten t> ID Date Data Source [id number] 01/29/2020 10:00:00 PM EDT [facility] Name Value Range Interpretation Description Data Sup porting Code Source(s) Document(s ) SARS [facility] coronavirus 2 RNA This lab was ordered by [facility] ct Bill Inter and reported by [facility]. ID Date Data Source [id number] 12/26/2019 11:00:00 AM EDT [facility] Name Value Range Interpretation Description Data Sup porting Code Source(s) Document(s ) SARS [facility] coronavirus 2 RNA This lab was ordered by [facility] and reported by [facility]. ID Date Data Source Liver 12/14/2019 11:55:00 AM EDT [facility] Profile.[id number] Name Value Range Interpretation Description Data Sup [...] s"> (3.5-5.0 G/DL)</content> ID Date Data Source HematologyRou.[id number] 12/14/2019 11:55:00 AM EDT [facility] 0400 Name Value Range Interpretation Description [...] (0-0.1 KCUMM)</content > ID Date Data Source GFR(Creatinine).[id number] 12/14/2019 11:55:00 AM EDT [facility]ur[facility] 0-0400 Name Value Range Interpretation Code Description Data Alyson rce(s) Supporting Document(s ) UNK > 60 <content [facility] styleCode="Bold"> Medical Cent er EGFR </content>177 GFR<content styleCode="Italic s"> (> 60 GFR)</content> ID Date Data Source Coagulation 12/14/2019 11:55:00 AM [facility] ical Center Rout.[id number] EDT Name Value Range Interpretation Description Data [...] cs"> (25.1-36.5 SEC)</content> ID Date Data Source LOWELL.[id number] 12/14/2019 11:55:00 AM EDT [facility] -0400 Name Value Range Interpretation Description [...] (6.3-8.2 G/DL)</content > ID Date Data Source CardiacMarkers.[id number] 12/14/2019 11:55:00 AM EDT [facility] -0400 Name Value Range Interpretation Description Data Sup porting Code Source(s) Document(s ) Troponin < 0.034 <content [facility] I.cardiac styleCode="Bold [facility] [Mass/volume ">Troponin I Medical ] in Serum </content>< Center or Plasma 0.012 NG/ML<content styleCode="Ital ics"> (< 0.034 NG/ML)</content > ID Date Data Source [facility].[id number] 12/14/2019 11:55:00 AM EDT [facility] Name Value Range Interpretation Description Data Sup porting Code Source(s) Document(s ) Sodium 137-145 <content [facility] [Moles/volume] in styleCode="Bold"> [facility] Serum or Plasma Sodium Medical </content>137 Center MEQ/L<content styleCode="Italic s"> (137-145 MEQ/L)</content> Chloride 98-107 <content [facility] [Moles/volume] in styleCode="Bold"> [facility] Serum or Plasma Chloride Medical </content>103 Center MEQ/L<content styleCode="Italic s"> (98-107 MEQ/L)</content> Potassium 3.5-5.3 <content [facility] [Moles/volume] in styleCode="Bold"> [facility] Serum or Plasma Potassium Medical [...] s"> (0.2-1.3 MG/DL)</content> ID Date Data Source [id number] 12/01/2019 07:20:00 AM EDT [facility] Name Value Range Interpretation Description Data Sup porting Code Source(s) Document(s ) SARS [facility] CORONAVIRUS 2 RNA This lab was ordered by [place] Laura Herrera and reported by [facility]. ID Date Data Source CHMROUTINECCDA.[id number] 07/13/2019 06:54:00 PM EST [facility] -0500 Name Value Range Interpretation Description Data Sup porting Code Source(s) Document(s ) Cannabinoids <content [facility] [Presence] in styleCode="Sera [facility] Urine by Screen d">Cannabinoid Medical method >50 ng/mL s Center </content>PRES UMPTIVE POSITIVE NG/ML (Reference Range: not available)<br/ > ID Date Data Source HematologyRou.[id number] 07/13/2019 06:51:00 PM [facility] 0500 Name Value Range Interpretation Description Data [...] ics"> (8.0-11.0 [place])</content> ID Date Data Source GFR(Creatinine).[id number] 07/13/2019 06:51:00 PM EST [facility] 0-0500 Name Value Range Interpretation Code Description Data Alyson rce(s) Supporting Document(s ) UNK > 60 <content [facility] styleCode="Bold"> Medical Cent er EGFR </content>127 GFR<content styleCode="Italic s"> (> 60 GFR)</content> ID Date Data Source [id number] 07/13/2019 06:51:00 PM EST [facility] Name Value Range Interpretation Description Data [...] Source Liver Profile 07/27/2018 07:25:00 PM EST [facility] Name Value Range Interpretation Description Data [...] Data Source HematologyRou 07/27/2018 07:25:00 PM EST [facility] Name Value Range Interpretation Description Data [...] Date Data Source GFR(Creatinine) 07/27/2018 07:25:00 PM [facility] Name Value Range Interpretation Code Description Data Alyson rce(s) Supporting Document(s ) UNK > 60 <content [facility] styleCode="Bold"> Medical Cent er EGFR </content>178 GFR<content styleCode="Italic s"> (> 60 GFR)</content> ID Date Data Source BMP 07/27/2018 07:25:00 PM [facility] Name Value Range Interpretation Description Data Sup porting Code Source(s) Document(s ) Sodium 137-145 <content [facility] [Moles/volume] in styleCode="Bold"> [facility] Serum or Plasma Sodium Medical [...] saturation 97 % 97 % [facility] in Arterial blood [facility] Center by Pulse oximetry Heart rate 76 /min 76 /min [facility] Body height 165.810146 165.719096 cm [facility] Medical [place] Diastolic blood 72 mm[Hg] 72 mm[Hg] [facility] pressure Medical Center Systolic blood 138 mm[Hg] 138 mm[Hg] [facility] pressure Medical Center Body mass index 23.8 kg/m2 23.8 kg/m2 [facility] (BMI) [Ratio] Medical [facility] Body weight 65.470812 kg 65.225074 kg [facility] Measured Medical Center Body temperature 36.732102 36.316681 [facility] Respiratory rate 18 /min 18 /min [facility] Body temperature 36.874251 36.097278 [facility] Respiratory rate 19 /min 19 /min [facility] Oxygen saturation 96 % 96 % [facility] Arterial blood Medical Center by Pulse oximetry Heart rate 113 /min 113 /min [facility] Diastolic blood 76 mm[Hg] 76 mm[Hg] [facility] pressure Medical Center Systolic blood 136 mm[Hg] 136 mm[Hg] [facility] Body temperature 36.110200 36.028064 [facility] Respiratory rate 17 /min 17 /min [facility] Oxygen saturation 99 % 99 % [facility] Arterial blood [facility] Center by Pulse oximetry Heart rate 78 /min 78 /min [facility] Diastolic blood 77 mm[Hg] 77 mm[Hg] [facility] Center Systolic blood 123 mm[Hg] 123 mm[Hg] [facility] Body weight 54.895286 kg 54.928757 kg [facility] Measured Medical Center Body temperature 36.590026 36.916307 [facility] Respiratory rate 17 /min 17 /min [facility] Oxygen saturation 98 % 98 % [facility] blood [facility] Center by Pulse oximetry Heart rate 85 /min 85 /min [facility] Body height 167.019556 167.148311 cm [facility] Diastolic blood 73 mm[Hg] 73 mm[Hg] [facility] Center Systolic blood 126 mm[Hg] 126 mm[Hg] [facility] Body mass index 19.3 kg/m2 19.3 kg/m2 [facility] (BMI) [Ratio] Medical [facility] Body weight 70.451661 kg 70.603209 kg [facility] Measured Medical Center Body temperature 36.875050 36.657496 [facility] Respiratory rate 18 /min 18 /min [facility] Oxygen saturation 97 % 97 % [facility] blood [facility] by Pulse oximetry Heart rate 84 /min 84 /min [facility] Body height 167.969276 167.572121 cm [facility] Diastolic blood 90 mm[Hg] 90 mm[Hg] [facility] Center Systolic blood 134 mm[Hg] 134 mm[Hg] [facility] Center Body mass index 24.9 kg/m2 24.9 kg/m2 [facility] (BMI) [Ratio] Medical [address] Oxygen saturation 96 % 96 % [facility] Arterial blood Medical Center by Pulse oximetry Diastolic blood 79 mm[Hg] 79 mm[Hg] [facility] pressure Medical Center Systolic blood 136 mm[Hg] 136 mm[Hg] [facility] Center Body temperature 36.682295 36.190712 [facility] Respiratory rate 18 /min 18 /min [facility] Oxygen saturation 94 % 94 % [facility] Arterial blood Medical Center by Pulse oximetry Heart rate 85 /min 85 /min [facility] Diastolic blood 82 mm[Hg] 82 mm[Hg] [facility] pressure Medical Center Systolic blood 145 mm[Hg] 145 mm[Hg] [facility] Body temperature 36.890724 36.188889 [facility] Respiratory rate 19 /min 19 /min [facility] Oxygen saturation 95 % 95 % [facility] Arterial blood Medical Center by Pulse oximetry Heart rate 61 /min 61 /min [facility] Diastolic blood 92 mm[Hg] 92 mm[Hg] [facility] pressure Medical Center Systolic blood 149 mm[Hg] 149 mm[Hg] [facility] Body temperature 36.146673 36.304542 [facility] Respiratory rate 18 /min 18 /min [facility] Oxygen saturation 99 % 99 % [facility] blood Medical Center by Pulse oximetry Heart rate 96 /min 96 /min [facility] Diastolic blood 95 mm[Hg] 95 mm[Hg] [facility] pressure Medical Center Systolic blood 126 mm[Hg] 126 mm[Hg] [facility] Center Body temperature 36.708675 36.223122 [facility] Respiratory rate 18 /min 18 /min [facility] Oxygen saturation 98 % 98 % [facility] Arterial blood Medical Center by Pulse oximetry Heart rate 80 /min 80 /min [facility] Diastolic blood 80 mm[Hg] 80 mm[Hg] [facility] pressure Medical Center Systolic blood 124 mm[Hg] 124 mm[Hg] [facility] Body weight 58.243443 kg 58.231188 kg [facility] Center Body temperature 37.734512 37.251458 [facility] Respiratory rate 17 /min 17 /min [facility] Oxygen saturation 100 % 100 % [facility] Arterial blood [facility] Center by Pulse oximetry Heart rate 100 /min 100 /min [facility] Body height 167.041877 167.695056 cm [facility] Medical Center Diastolic blood 79 mm[Hg] 79 mm[Hg] [facility] pressure Medical Center Systolic blood 129 mm[Hg] 129 mm[Hg] [facility] Body mass index 20.9 kg/m2 20.9 kg/m2 [facility] (BMI) [Ratio] Medical [facility] Body temperature 36.859312 36.008736 [facility] Respiratory rate 18 /min 18 /min [facility] Oxygen saturation 98 % 98 % [facility] blood [facility] by Pulse oximetry Heart rate 80 /min 80 /min [facility] Diastolic blood 78 mm[Hg] 78 mm[Hg] [facility] Systolic blood 122 mm[Hg] 122 mm[Hg] [facility] Body temperature 36.663821 36.235304 [facility] Respiratory rate 18 /min 18 /min [facility] Oxygen saturation 98 % 98 % [facility] blood [facility] by Pulse oximetry Heart rate 86 /min 86 /min [facility] Diastolic blood 80 mm[Hg] 80 mm[Hg] [facility] Systolic blood 127 mm[Hg] 127 mm[Hg] [facility] Body temperature 37.208200 37.081031 [facility] Respiratory rate 18 /min 18 /min [facility] Oxygen saturation 96 % 96 % [facility] blood [facility] by Pulse oximetry Heart rate 84 /min 84 /min [facility] Diastolic blood 89 mm[Hg] 89 mm[Hg] [facility] Systolic blood 153 mm[Hg] 153 mm[Hg] [facility] Body temperature 36.083059 36.979008 [facility] Respiratory rate 18 /min 18 /min [facility] Oxygen saturation 98 % 98 % [facility] Arter[facility] blood [facility] by Pulse oximetry Heart rate 64 /min 64 /min [facility] Diastolic blood 91 mm[Hg] 91 mm[Hg] [facility] [place] Systolic blood 169 mm[Hg] 169 mm[Hg] [facility] Body temperature 36.511957 36.987273 [facility] Respiratory rate 18 /min 18 /min [facility] Oxygen saturation 98 % 98 % [facility] Arterial blood [facility] by Pulse oximetry Heart rate 71 /min 71 /min [facility] Diastolic blood 71 mm[Hg] 71 mm[Hg] [facility] Systolic blood 139 mm[Hg] 139 mm[Hg] [facility] Body temperature 36.127086 36.240930 [facility] Respiratory rate 17 /min 17 /min [facility] Oxygen saturation 98 % 98 % [facility] blood [facility] by Pulse oximetry Heart rate 73 /min 73 /min [facility] Diastolic blood 66 mm[Hg] 66 mm[Hg] [facility] Systolic blood 132 mm[Hg] 132 mm[Hg] [facility] Body temperature 37.791181 37.713070 [facility] Respiratory rate 17 /min 17 /min [facility] Oxygen saturation 98 % 98 % [facility] blood [facility] by Pulse oximetry Heart rate 85 /min 85 /min [facility] Diastolic blood 87 mm[Hg] 87 mm[Hg] [facility] Systolic blood 154 mm[Hg] 154 mm[Hg] [facility] Body weight 63.399912 kg [address].37[address] [facility] Body temperature 37.438400 37.970726 [facility] Respiratory rate 18 /min 18 /min [facility] Oxygen saturation 96 % 96 % [facility] blood [facility] by Pulse oximetry Heart rate 82 /min 82 /min [facility] Body height 172.092169 172.967425 cm [facility] Diastolic blood 90 mm[Hg] 90 mm[Hg] [facility] pressure [facility] Systolic blood 146 mm[Hg] 146 mm[Hg] [facility] Body mass index 21.2 kg/m2 21.2 kg/m2 [facility] (BMI) [Ratio] [facility] Body temperature 36.421282 36.053011 [facility] Respiratory rate 18 /min 18 /min [facility] Oxygen saturation 97 % 97 % [facility] Arterial blood [facility] by Pulse oximetry Heart rate 69 /min 69 /min [facility] Diastolic blood mm[Hg] [facility] pressure [facility] Systolic blood mm[Hg] [facility] Body weight 65.966135 kg 65.035377 kg [facility] Body temperature 36.593443 36.182957 [facility] Respiratory rate 17 /min 17 /min [facility] Oxygen saturation 99 % 99 % [facility] blood [facility] by Pulse oximetry Heart rate 80 /min 80 /min [facility] Body height 167.662019 167.614769 cm [facility] Diastolic blood 78 mm[Hg] 78 mm[Hg] [facility] Systolic blood 123 mm[Hg] 123 mm[Hg] [facility] Body mass index 23.1 kg/m2 23.1 kg/m2 [facility] (BMI) [Ratio] [facility] Body weight 63.643285 kg 63.865114 kg [facility] Body temperature 37.234105 37.928548 [facility] Respiratory rate 18 /min 18 /min [facility] Oxygen saturation 93 % 93 % [facility] by Pulse oximetry Heart rate 82 /min 82 /min [facility] Body height 167.532208 167.434973 cm [facility] Diastolic blood 105 mm[Hg] 105 mm[Hg] [facility] pressure [facility] Center Systolic blood 157 mm[Hg] 157 mm[Hg] [facility] Body mass index 22.5 kg/m2 22.5 kg/m2 [facility] (BMI) [Ratio] [facility] [address] Body weight 68.446908 kg 68.400432 kg [facility] Body temperature 36.070847 36.121331 [facility] Respiratory rate 20 /min 20 /min [facility] Oxygen saturation 100 % 100 % [facility] by Pulse oximetry Heart rate 101 /min 101 /min [facility] Body height 165.363574 165.874476 cm [facility] [place] Diastolic blood 80 mm[Hg] 80 mm[Hg] [facility] pressure [facility] Center Systolic blood 140 mm[Hg] 140 mm[Hg] [facility] Body mass index 24.9 kg/m2 24.9 kg/m2 [facility] (BMI) [Ratio] [facility] Body temperature 36.929090 36.617824 [facility] Respiratory rate 18 /min 18 /min [facility] Oxygen saturation 97 % 97 % [facility] Arterial blood [facility] by Pulse oximetry Heart rate 88 /min 88 /min [facility] Diastolic blood 78 mm[Hg] 78 mm[Hg] [facility] pressure [facility] Systolic blood 145 mm[Hg] 145 mm[Hg] [facility] Body temperature 36.456491 36.034279 [facility] Respiratory rate 19 /min 19 /min [facility] Oxygen saturation 97 % 97 % [facility] blood [facility] by Pulse oximetry Heart rate 94 /min 94 /min [facility] Diastolic blood 86 mm[Hg] 86 mm[Hg] [facility] Systolic blood 148 mm[Hg] 148 mm[Hg] [facility] Body temperature 36.330622 36.323260 [facility] Oxygen saturation 99 % 99 % [facility] blood [facility] by Pulse oximetry Heart rate 89 /min 89 /min [facility] Body weight 77.882875 kg 77.406472 kg [facility] Body temperature 37.048909 37.779570 [facility] Respiratory rate 18 /min 18 /min [facility] Oxygen saturation 97 % 97 % [facility] Arter[facility] blood [facility] by Pulse oximetry Heart rate 99 /min 99 /min [facility] Body height 165.431268 165.684160 cm [facility] Diastolic blood 87 mm[Hg] 87 mm[Hg] [facility] pressure [facility] Center Systolic blood 145 mm[Hg] 145 mm[Hg] [facility] Body mass index 28.2 kg/m2 28.2 kg/m2 [facility] (BMI) [Ratio] [facility] Body temperature 36.459387 36.048556 [facility] Respiratory rate 17 /min 17 /min [facility] Oxygen saturation 98 % 98 % [facility] Arter[facility] blood [facility] by Pulse oximetry Heart rate 103 /min 103 /min [facility] Diastolic blood 81 mm[Hg] 81 mm[Hg] [facility] Systolic blood 128 mm[Hg] 128 mm[Hg] [facility] Body weight 58.577722 kg 58.3655[address] [facility] Body temperature 36.777879 36.699029 [facility] Respiratory rate 17 /min 17 /min [facility] Oxygen saturation 99 % 99 % [facility] blood [facility] by Pulse oximetry Heart rate 112 /min 112 /min [facility] Body height 167.612840 167.659124 cm [facility] Diastolic blood 90 mm[Hg] 90 mm[Hg] [facility] Center Systolic blood 122 mm[Hg] 122 mm[Hg] [facility] Body mass index 20.9 kg/m2 20.9 kg/m2 [facility] (BMI) [Ratio] [facility] Body temperature 36.735455 36.194174 [facility] Respiratory rate 16 /min 16 /min [facility] Oxygen saturation 98 % 98 % [facility] Arterial blood [facility] by Pulse oximetry Heart rate 73 /min 73 /min [facility] Diastolic blood 73 mm[Hg] 73 mm[Hg] [facility] Center Systolic blood 154 mm[Hg] 154 mm[Hg] [facility] Body weight 72.095552 kg 72.393166 kg [facility] Body temperature 36.093683 36.614120 [facility] Respiratory rate 20 /min 20 /min [facility] Oxygen saturation 96 % 96 % [facility] blood [facility] by Pulse oximetry Heart rate 72 /min 72 /min [facility] Body height 167.058783 167.674396 cm [facility] Diastolic blood 80 mm[Hg] 80 mm[Hg] [facility] pressure [facility] Systolic blood 136 mm[Hg] 136 mm[Hg] [facility] Body mass index 25.8 kg/m2 25.8 kg/m2 [facility] (BMI) [Ratio] [facility] Body temperature 36.225151 36.008635 [facility] Respiratory rate 16 /min 16 /min [facility] Oxygen saturation 96 % 96 % [facility] blood [facility] by Pulse oximetry Heart rate 74 /min 74 /min [facility] Diastolic blood 79 mm[Hg] 79 mm[Hg] [facility] pressure [facility] Center Systolic blood 136 mm[Hg] 136 mm[Hg] [facility] Body temperature 37.230877 37.170838 [facility] Body weight 65.677486 kg 65.134915 kg [facility] Body temperature 36.311050 36.545387 [facility] Respiratory rate 17 /min 17 /min [facility] Oxygen saturation 99 % 99 % [facility] by Pulse oximetry Heart rate 102 /min 102 /min [facility] Diastolic blood 51 mm[Hg] 51 mm[Hg] [facility] Systolic blood 134 mm[Hg] 134 mm[Hg] [facility] Body weight 72.211593 kg 72.218015 kg [facility] Body temperature 36.065927 36.143200 [facility] Respiratory rate 17 /min 17 /min [facility] Oxygen saturation 98 % 98 % [facility] blood [facility] by Pulse oximetry Heart rate 90 /min 90 /min [facility] Body height 157.047156 157.570964 cm [facility] Diastolic blood 98 mm[Hg] 98 mm[Hg] [facility] pressure [facility] Center Systolic blood 136 mm[Hg] 136 mm[Hg] [facility] Body mass index 29.2 kg/m2 29.2 kg/m2 [facility] (BMI) [Ratio] [facility] Body temperature 36.120548 36.877365 [facility] Respiratory rate 19 /min 19 /min [facility] Oxygen saturation 97 % 97 % [facility] Arterial blood [facility] by Pulse oximetry Heart rate 78 /min 78 /min [facility] Diastolic blood 99 mm[Hg] 99 mm[Hg] [facility] Systolic blood 152 mm[Hg] 152 mm[Hg] [facility] Body temperature 36.821650 36.124661 [facility] Respiratory rate 18 /min 18 /min [facility] Oxygen saturation 98 % 98 % [facility] Arterial blood [facility] by Pulse oximetry Heart rate 80 /min 80 /min [facility] Diastolic blood 78 mm[Hg] 78 mm[Hg] [facility] pressure [facility] Systolic blood 112 mm[Hg] 112 mm[Hg] [facility] Body temperature 36.180919 36.919223 [facility] Respiratory rate 18 /min 18 /min [facility] Oxygen saturation 98 % 98 % [facility] Arterial blood [facility] by Pulse oximetry Heart rate 87 /min 87 /min [facility] Diastolic blood 67 mm[Hg] 67 mm[Hg] [facility] Systolic blood 115 mm[Hg] 115 mm[Hg] [facility] Body temperature 36.541508 36.022368 [facility] Respiratory rate 18 /min 18 /min [facility] Oxygen saturation 98 % 98 % [facility] Arterial blood [facility] by Pulse oximetry Heart rate 71 /min 71 /min [facility] Diastolic blood 78 mm[Hg] 78 mm[Hg] [facility] Center Systolic blood 131 mm[Hg] 131 mm[Hg] [facility] Body temperature 36.407683 36.353496 [facility] Respiratory rate 18 /min 18 /min [facility] Oxygen saturation 100 % 100 % [facility] by Pulse oximetry Heart rate 78 /min 78 /min [facility] Diastolic blood 73 mm[Hg] 73 mm[Hg] [facility] pressure [facility] [place] Systolic blood 138 mm[Hg] 138 mm[Hg] [facility] Body weight 72.866178 kg 72.138682 kg [facility] Body temperature 36.772662 36.431550 [facility] Respiratory rate 17 /min 17 /min [facility] Oxygen saturation 99 % 99 % [facility] by Pulse oximetry Heart rate 66 /min 66 /min [facility] Diastolic blood 90 mm[Hg] 90 mm[Hg] [facility] Systolic blood 158 mm[Hg] 158 mm[Hg] [facility] Body temperature 36.113688 36.116152 [facility] Respiratory rate 19 /min 19 /min [facility] Oxygen saturation 98 % 98 % [facility] by Pulse oximetry Heart rate 81 /min 81 /min [facility] Diastolic blood 77 mm[Hg] 77 mm[Hg] [facility] Systolic blood 132 mm[Hg] 132 mm[Hg] [facility] Body temperature 36.762762 36.737056 [facility] Respiratory rate 18 /min 18 /min [facility] Oxygen saturation 97 % 97 % [facility] blood [facility] by Pulse oximetry Heart rate 70 /min 70 /min [facility] Diastolic blood 84 mm[Hg] 84 mm[Hg] [facility] Systolic blood 128 mm[Hg] 128 mm[Hg] [facility] Body temperature 36.724416 36.272478 [facility] Respiratory rate 17 /min 17 /min [facility] Oxygen saturation 96 % 96 % [facility] Arterial blood [facility] by Pulse oximetry Heart rate 72 /min 72 /min [facility] Diastolic blood 76 mm[Hg] 76 mm[Hg] [facility] pressure [facility] Systolic blood 126 mm[Hg] 126 mm[Hg] [facility] Body temperature 36.481591 36.041741 [facility] Respiratory rate 18 /min 18 /min [facility] Heart rate 70 /min 70 /min [facility] Diastolic blood 76 mm[Hg] 76 mm[Hg] [facility] pressure [facility] Systolic blood 131 mm[Hg] 131 mm[Hg] [facility] Body weight 61.965660 kg 61.576463 kg [facility] Body temperature 36.064079 36.332767 [facility] Respiratory rate 18 /min 18 /min [facility] Oxygen saturation 97 % 97 % [facility] blood [facility] by Pulse oximetry Heart rate 70 /min 70 /min [facility] Body height 167.379102 167.839750 cm [facility] Diastolic blood 79 mm[Hg] 79 mm[Hg] [facility] Center Systolic blood 130 mm[Hg] 130 mm[Hg] [facility] Body mass index 21.7 kg/m2 21.7 kg/m2 [facility] (BMI) [Ratio] [facility] Body weight 64.491328 kg 64.122120 kg [facility] Body temperature 36.660706 36.809215 [facility] Respiratory rate 20 /min 20 /min [facility] Oxygen saturation 9 % 9 % [facility] blood [facility] by Pulse oximetry Heart rate 75 /min 75 /min [facility] Body height 167.571005 167.264232 cm [facility] Diastolic blood 97 mm[Hg] 97 mm[Hg] [facility] Systolic blood 144 mm[Hg] 144 mm[Hg] [facility] Body mass index 22.7 kg/m2 22.7 kg/m2 [facility] (BMI) [Ratio] [facility] Body temperature 37.441711 37.710200 [facility] Respiratory rate 18 /min 18 /min [facility] Oxygen saturation 96 % 96 % [facility] blood [facility] by Pulse oximetry Heart rate 98 /min 98 /min [facility] Diastolic blood 67 mm[Hg] 67 mm[Hg] [facility] [place] Systolic blood 114 mm[Hg] 114 mm[Hg] [facility] Body temperature 36.095748 36.203682 [facility] Respiratory rate 18 /min 18 /min [facility] Oxygen saturation 97 % 97 % [facility] Ar[facility] blood [facility] by Pulse oximetry Heart rate 105 /min 105 /min [facility] Diastolic blood 65 mm[Hg] 65 mm[Hg] [facility] [place] Systolic blood 107 mm[Hg] 107 mm[Hg] [facility] Body temperature 36.815717 36.316335 [facility] Respiratory rate 18 /min 18 /min [facility] Oxygen saturation 98 % 98 % [facility] blood [facility] by Pulse oximetry Heart rate 87 /min 87 /min [facility] Diastolic blood 78 mm[Hg] 78 mm[Hg] [facility] Systolic blood 139 mm[Hg] 139 mm[Hg] [facility] Body temperature 36.708946 36.123255 [facility] Respiratory rate 20 /min 20 /min [facility] Oxygen saturation 95 % 95 % [facility] blood [facility] by Pulse oximetry Heart rate 91 /min 91 /min [facility] Diastolic blood 88 mm[Hg] 88 mm[Hg] [facility] Systolic blood 136 mm[Hg] 136 mm[Hg] [facility] Body temperature 36.300401 36.559734 [facility] Respiratory rate 17 /min 17 /min [facility] Oxygen saturation 98 % 98 % [facility] blood [facility] by Pulse oximetry Heart rate 80 /min 80 /min [facility] Diastolic blood 86 mm[Hg] 86 mm[Hg] [facility] [place] Systolic blood 139 mm[Hg] 139 mm[Hg] [facility] Body temperature 36.378108 36.699387 [facility] Respiratory rate 18 /min 18 /min [facility] Oxygen saturation 97 % 97 % [facility] Ar[facility] blood [facility] by Pulse oximetry Heart rate 86 /min 86 /min [facility] Diastolic blood 88 mm[Hg] 88 mm[Hg] [facility] pressure [facility] Systolic blood 145 mm[Hg] 145 mm[Hg] [facility] Body weight 75.395888 kg 75.643288 kg [facility] Body temperature 36.189989 36.319791 [facility] Respiratory rate 19 /min 19 /min [facility] Oxygen saturation 98 % 98 % [facility] Arterial blood [facility] by Pulse oximetry Heart rate 88 /min 88 /min [facility] Body height 165.176010 165.547387 cm [facility] Diastolic blood 84 mm[Hg] 84 mm[Hg] [facility] Systolic blood 144 mm[Hg] 144 mm[Hg] [facility] Body mass index 27.5 kg/m2 27.5 kg/m2 [facility] (BMI) [Ratio] [facility] Body temperature 36.381201 36.105498 [facility] Respiratory rate 18 /min 18 /min [facility] Oxygen saturation 97 % 97 % [facility] Arterial blood [facility] by Pulse oximetry Heart rate 90 /min 90 /min [facility] Diastolic blood 93 mm[Hg] 93 mm[Hg] [facility] Systolic blood 138 mm[Hg] 138 mm[Hg] [facility] Body temperature 36.314832 36.617854 [facility] Respiratory rate 18 /min 18 /min [facility] Oxygen saturation 97 % 97 % [facility] Arterial blood [facility] by Pulse oximetry Heart rate 19 /min 19 /min [facility] Diastolic blood 74 mm[Hg] 74 mm[Hg] [facility] Systolic blood 134 mm[Hg] 134 mm[Hg] [facility] Patient Treatment Plan of Care Planned Activity Planned Date Details Description Data Source (s) Ibuprofen 600 MG Oral [facility]
--- OUTSIDE RECORDS SUMMARY | 2020-03-13 07:35 | XMS ---
:1960 Author Organization [facility] Care Team Providers Name Role Phone ED STAFF PHYSICIAN Unavailable Unavailable ED STAFF PHYSICIAN Unavailable Unavailable ANDREW Ulrich Unavailable Unavailable RHONDA PONCE Unavailable Unavailable CHRISS العراقي Unavailable Unavailable ED STAFF PHYSICIAN, STAFF Unavailable Unavailable ED STAFF PHYSICIAN Unavailable Unavailable ED STAFF PHYSICIAN Unavailable Unavailable ZUNASSIGNED Unavailable Unavailable [facility] WJCS9 Unavailable Unavailable ZAMZAM BALBUENA Unavailable Unavailable [...] is protected by Article 27-F of the [facility] Public Health law. If you continue you may haveaccess to information: Regarding HIV / AIDS; Provided by facilities licensed or operated by the [facility] Office of Mental Health; or Provided by the [facility] Office for People With Developmental Disabilities. If such information is present, then the following [facility] mandated warning applies: This information has [...] law may result in a fine or shelter sentence or both. A general authorization for the release of medical or other information is NOT sufficient authorization for further disclosure. Allergies and Adverse Reactions Type Description Substance Reaction Status Data Source(s ) Drug allergy No Known Drug No Known Drug [facility] Encounters Encounter Providers Location Date Indications Data Source(s ) Emergency Attender: ED STAFF H 03/12/2020 [facility] PHYSICIANAttender: 06:47:00 PM [facility] STAFF ED STAFF EDT - PHYSICIANAdmitter: ED 03/12/2020 STAFF 08:00:00 PM PHYSICIANReferrer: EDT ZUNASSIGNED Patient discharged. Emergency Attender: ZAMZAM WYMAN 03/09/2020 04:36 :00 PM [facility] CAttender: STAFF ED STAFF EDT - 03/09/2020 [facility] PHYSICIANAdmitter: ZAMZAM 08:28:00 PM EDT ABDULKADIR WYMAN CReferrer: STAFF ED STAFF PHYSICIAN Patient discharged. Emergency Attender: ED STAFF 03/01/2020 05:48:00 PM [facility] PHYSICIANAttender: STAFF ED EDT - 03/01/2020 [facility] STAFF PHYSICIANAdmitter: ED 09:25:00 PM EDT STAFF PHYSICIANReferrer: STAFF ED STAFF PHYSICIAN Patient discharged. Emergency Attender: ED STAFF 02/24/2020 05:55:00 PM [facility] PHYSICIANAttender: STAFF ED EDT - 02/24/2020 [facility] STAFF PHYSICIANAdmitter: ED 10:42:00 PM EDT STAFF PHYSICIANReferrer: STAFF ED STAFF PHYSICIAN Patient discharged. Emergency Attender: ED STAFF H 02/20/2020 09:36:00 PM [facility] PHYSICIANAttender: STAFF ED EDT - 02/21/2020 [facility] STAFF PHYSICIANAdmitter: ED 07:13:00 AM EDT STAFF PHYSICIAN Patient discharged. Emergency Attender: ED STAFF H 02/18/2020 10:18:00 PM [facility] PHYSICIANAttender: ED STAFF EDT - 02/18/2020 [facility] PHYSICIANAttender: STAFF ED 11:23:00 PM EDT STAFF PHYSICIANAdmitter: ED STAFF PHYSICIAN Patient discharged. Emergency Attender: ED STAFF H 02/18/2020 03:32:00 PM [facility] PHYSICIANAttender: STAFF ED EDT - 02/18/2020 [facility] STAFF PHYSICIANAdmitter: ED 11:24:00 PM EDT STAFF PHYSICIANReferrer: STAFF ED STAFF PHYSICIAN Patient discharged. Emergency Attender: ZAMZAM Silverman 02/17/2020 03:33 :00 PM [facility] STAFF EDT - 02/17/2020 [facility] PHYSICIANAdmitter: ZAMZAM 04:36:00 PM EDT ABDULKADIR WYMAN CReferrer: STAFF ED STAFF PHYSICIAN Patient discharged. Emergency Attender: ZAMZAM Silverman 02/15/2020 02:57 :00 PM [facility]: STAFF ED STAFF EDT - 02/15/2020 [facility] PHYSICIANAdmitter: ZAMZAM 06:44:00 PM EDT ABDULKADIR Herrera Patient discharged. Emergency Attender: ZAMZAM Silverman 01/29/2020 04:10 :00 PM [facility]: STAFF ED STAFF EDT - 01/29/2020 [facility] PHYSICIANAdmitter: ZAMZAM 05:19:00 PM EDT ABDULKADIR Herrera Patient discharged. Emergency Attender: STAFF ED STAFF 01/12/2020 05:43:00 PM [facility] PHYSICIANReferrer: STAFF ED EDT - 01/12/2020 [facility] STAFF PHYSICIAN 08:26:00 PM EDT Patient discharged. Emergency Attender: ZAMZAM Silverman 01/10/2020 04:39 :00 PM [facility] ED STAFF EDT - 01/10/2020 [facility] PHYSICIANAdmitter: ZAMZAM 09:11:00 PM EDT ABDULKADIR Herrera Patient discharged. Emergency Attender: STAFF ED STAFF H 12/26/2019 10:55:00 PM [facility] PHYSICIAN EDT - 12/27/2019 03:29:00 Center AM EDT Patient discharged. Emergency Attender: CHRISS Silverman 12/25/2019 02:01 :00 PM [facility]: STAFF ED STAFF EDT - 12/25/2019 [facility] PHYSICIANAdmitter: CHRISS 02:29:00 PM EDT ISAURAO CHRISS S Patient discharged. Emergency Attender: ZAMZAM Silverman 12/20/2019 07:25 :00 PM [facility] STAFF EDT - 12/21/2019 [facility] PHYSICIANAttender: STAFF ED 01:07:00 AM EDT STAFF PHYSICIANAdmitter: ZAMZAM Herrera Patient discharged. Emergency Attender: ED STAFF H 12/14/2019 10:47:00 AM [facility] PHYSICIANAttender: STAFF ED EDT - 12/14/2019 [facility] STAFF PHYSICIANAdmitter: ED 03:40:00 PM EDT STAFF PHYSICIAN Patient discharged. Emergency Attender: ZAMZAM Silverman 12/11/2019 07:57 :00 PM [facility] ST[facility]FF ED STAFF EDT - 12/11/2019 [facility] PHYSICIANAdmitter: ZAMZAM 10:14:00 PM EDT ABDULKADIR Herrera Patient discharged. Emergency Attender: RHONDA HUANG 12/08/2019 05:19:00 PM [facility] ROMANttender: STAFF ED EDT - 12/08/2019 [facility] STAFF PHYSICIANAdmitter: 06:44:00 PM EDT RHONDA BARORSOTUS BOWENRADHAJamie Patient discharged. Emergency Attender: STAFF ED STAFF 11/30/2019 07:50:00 PM [facility] Medical PHYSICIAN EDT - 12/01/2019 12:41:00 Center AM EDT Patient discharged. Emergency Attender: ED STAFF H 11/28/2019 06:37:00 PM [facility] PHYSICIANAttender: STAFF ED EDT - 11/28/2019 [facility] STAFF PHYSICIANAdmitter: ED 10:35:00 PM EDT STAFF PHYSICIAN Patient discharged. Emergency Attender: ZAMZAM Silverman 11/15/2019 05:23 :00 PM [facility] Lexie: STAFF ED STAFF EDT - 11/15/2019 [facility] PHYSICIANAdmitter: ZAMZAM 09:35:00 PM EDT ABDULKADIR Herrera Patient discharged. Emergency Attender: ED STAFF H 10/22/2019 03:10:00 PM [facility] PHYSICIANAttender: STAFF ED EDT - 10/22/2019 [facility] STAFF PHYSICIANAdmitter: ED 06:05:00 PM EDT STAFF PHYSICIAN Patient discharged. Outpatient Attender: [id number] HV 07/31/2019 01:13:58 PM [facility] Patient admitted. Emergency Attender: ED STAFF H 07/13/2019 05:47:00 PM [facility] PHYSICIANAttender: ANDREW EST - 07/14/2019 [facility] AUGIE Drew: STAFF ED 06:43:00 AM EST STAFF PHYSICIANAdmitter: ED STAFF PHYSICIAN Patient discharged. Emergency Attender: RHONDA HUANG H 05/11/2019 08:09:00 PM [facility] JESSIGINEAttender: ED STAFF EST - 05/12/2019 [facility] PHYSICIANAttender: STAFF ED 04:36:00 AM EST STAFF PHYSICIANAdmitter: RHONDA ELLIS Patient discharged. Emergency H 04/06/2019 05:58:00 PM EDT - [address] [place] [address] 09:41:00 PM EDT Patient discharged. Emergency H 2019 09:47:00 PM EDT - [address] [place] [address] 03:00:00 PM EDT Patient discharged. Emergency H 2019 02:17:00 PM EDT - [address] [place] [address] 09:58:00 PM EDT Patient discharged. Emergency H 02/28/2019 03:30:00 PM EDT - [address] [place] [address] 06:39:00 PM EDT Patient discharged. Emergency H 02/12/2019 05:18:00 PM EDT - [address] [place] [address] 09:22:00 PM EDT Patient discharged. Emergency H 01/28/2019 12:00:00 AM EDT - [address] [place] [address] 06:45:00 AM EDT Patient discharged. Emergency H 01/23/2019 08:14:00 PM EDT - [address] [place] [address] 01:34:00 AM EDT Patient discharged. Emergency H 12/27/2018 09:32:00 PM EDT [facility] Emergency H 12/25/2018 12:16:00 AM EDT [facility] Emergency H 12/24/2018 05:25:00 PM EDT [facility] Emergency H 12/22/2018 06:33:00 PM EDT [facility] Emergency H 10/03/2018 09:25:00 PM EDT [facility] Emergency H 09/17/2018 07:31:00 PM EDT [facility] Emergency H 09/17/2018 05:10:00 PM EDT [facility] Emergency H 07/27/2018 05:50:00 PM EST [facility] Immunizations Vaccine Date Status Description Data Source(s) Tdap 09/13/2017 08:11:00 PM EDT completed [facility] Medications Medication Brand Start Product Dose Route Administrative Pharmacy [facility] Indications Reaction Description Data Name Date Form Instructions Instructions Source(s) Ibuprofen ibupro 1 complet [facility] 600 MG Oral fen [facility] Tablet 600 mg Medical ibuprofen Tablet Center 600 mg , Tablet, Ordere Ordered By: d By: mariama Preston PADleandro Wells s: 1 tablet a, oral every PADire six hours ctions PRN pain : 1 tablet oral every six hours PRN pain Insurance Providers Payer name Policy type Policy ID Covered Covered republican's Policy P madison / Coverage republican ID relationship to [place] ormation [place] [facility] [id number] SP [id number] HEALTH NON CAP MEDICAID [id number] SP [id number] [facility] CARE [id number] SAW [id number] SP [id number] 600 HEALTH NON CAP [facility] [id number] SP [id number] HEALTH NON CAP Problems, Conditions, and Diagnoses Code Display Name Description Problem Type Effective Data Dates Source(s) Z53.20 Procedure and PROC/TRTMT NOT CRD Diagnosis 03/09/2020 Anurag nt Joshua treatment not OUT BEC PT 04:36:00 PM Medical carried out DECISION FOR [facility] EDT Center because of REASONS patient's decision for unspecified reasons F10.20 Alcohol ALCOHOL Diagnosis 03/09/2020 [facility] dependence, DEPENDENCE, 04:36:00 PM Medical uncomplicated UNCOMPLICATED EDT Center F10.129 Alcohol abuse with ALCOHOL ABUSE WITH Diagnosis 0 [facility] intoxication, INTOXICATION, 04:36:00 PM Medical unspecified UNSPECIFIED EDT Center F17.210 Nicotine NICOTINE Diagnosis 03/01/2020 [facility] dependence, DEPENDENCE, 05:48:00 PM Medical cigarettes, CIGARETTES, EDT Center uncomplicated UNCOMPLICATED I10 Essential ESSENTIAL Diagnosis 03/01/2020 [facility] (primary) (PRIMARY) 05:48:00 PM Medical hypertension HYPERTENSION EDT Center R40.8140 Omi coma scale OMI COMA SCALE Diagnosis [...] ical carried out due to SEEN BY [facility] EDT Center patient leaving [place] prior to [...] M25.569 Pain in PAIN IN Diagnosis 10/22/2019 [facility] unspecified knee UNSPECIFIED KNEE 03:10:00 PM edical EDT Center Z00.00 Encounter for ENCNTR FOR GENERAL Diagnosis 01/28/2019 [facility] adult ADULT MEDICAL EXAM 12:00:00 AM Va dical medical W/O ABNORMAL EDT Center examination FINDINGS without abnormal findings Results ID Date Data Source HematologyRou.[id number] 02/15/2020 05:09:00 PM EDT [facility] 0400 Name Value Range Interpretation Description Data [...] ics"> (8.0-11.0 [place])</content> ID Date Data Source GFR(Creatinine).[id number] 02/15/2020 05:09:00 PM EDT [facility] 0-0400 Name Value Range Interpretation Code Description Data Alyson rce(s) Supporting Document(s ) UNK > 60 <content [facility] styleCode="Bold"> Medical Cent er EGFR </content>127 GFR<content styleCode="Italic s"> (> 60 GFR)</content> ID Date Data Source [facility].[id number] 02/15/2020 05:09:[address] [facility] Name Value Range Interpretation Description Data [...] (0.5-1.3 MG/DL)</conten t> ID Date Data Source [id number] 01/29/2020 10:00:00 PM EDT [facility] Name Value Range Interpretation Description Data Sup porting Code Source(s) Document(s ) SARS [facility] coronavirus 2 RNA This lab was ordered by [facility] ct Bill Inter and reported by [facility]. ID Date Data Source [id number] 12/26/2019 11:00:00 AM EDT [facility] Name Value Range Interpretation Description Data Sup porting Code Source(s) Document(s ) SARS [facility] coronavirus 2 RNA This lab was ordered by [facility] and reported by [facility]. ID Date Data Source Liver 12/14/2019 11:55:00 AM EDT [facility] Profile.[id number] Name Value Range Interpretation Description Data Sup [...] s"> (3.5-5.0 G/DL)</content> ID Date Data Source HematologyRou.[id number] 12/14/2019 11:55:00 AM EDT Anurag [facility] 0400 Name Value Range Interpretation Description [...] (0-0.1 KCUMM)</content > ID Date Data Source GFR(Creatinine).[id number] 12/14/2019 11:55:00 AM EDT Anurag [facility] 0-0400 Name Value Range Interpretation Code Description Data Alyson rce(s) Supporting Document(s ) UNK > 60 <content [facility] styleCode="Bold"> Medical Cent er EGFR </content>177 GFR<content styleCode="Italic s"> (> 60 GFR)</content> ID Date Data Source Coagulation 12/14/2019 11:55:00 AM [facility] ical Center Rout.[id number] EDT Name Value Range Interpretation Description Data [...] cs"> (25.1-36.5 SEC)</content> ID Date Data Source LOWELL.[id number] 12/14/2019 11:55:00 AM EDT [facility] -0400 Name Value Range Interpretation Description Data [...] (6.3-8.2 G/DL)</content > ID Date Data Source CardiacMarkers.[id number] 12/14/2019 11:55:00 AM EDT [facility] -0400 Name Value Range Interpretation Description Data Sup porting Code Source(s) Document(s ) Troponin < 0.034 <content [facility] I.cardiac styleCode="Bold Joshua [Mass/volume ">Troponin I Medical ] in Serum </content>< Center or Plasma 0.012 NG/ML<content styleCode="Ital ics"> (< 0.034 NG/ML)</content > ID Date Data Source [facility].[id number] 12/14/2019 11:55:00 AM EDT [facility] Center Name Value Range Interpretation Description Data Sup porting Code Source(s) Document(s ) Sodium 137-145 <content [facility] [Moles/volume] in styleCode="Bold"> [facility] Serum or Plasma Sodium Medical </content>137 Center MEQ/L<content styleCode="Italic s"> (137-145 MEQ/L)</content> Chloride 98-107 <content [facility] [Moles/volume] in styleCode="Bold"> [facility] Serum or Plasma Chloride Medical </content>103 Center MEQ/L<content styleCode="Italic s"> (98-107 MEQ/L)</content> Potassium 3.5-5.3 <content [facility] [Moles/volume] in styleCode="Bold"> [facility] Serum or Plasma Potassium Medical [...] s"> (0.2-1.3 MG/DL)</content> ID Date Data Source [id number] 12/01/2019 07:20:00 AM EDT [facility] Name Value Range Interpretation Description Data Sup porting Code Source(s) Document(s ) SARS [facility] CORONAVIRUS 2 RNA This lab was ordered by [place] Laura Herrera and reported by [facility]. ID Date Data Source CHMROUTINECCDA.[id number] 07/13/2019 06:54:00 PM EST [facility] -0500 Name Value Range Interpretation Description Data Sup porting Code Source(s) Document(s ) Cannabinoids <content [facility] [Presence] in styleCode="Sera [facility] Urine by Screen d">Cannabinoid Medical method >50 ng/mL s Center </content>PRES UMPTIVE POSITIVE NG/ML (Reference Range: not available)<br/ > ID Date Data Source HematologyRou.[id number] 07/13/2019 06:51:00 PM [facility] 0500 Name Value Range Interpretation Description [...] KCUMM)</content > UNK 0 <content [facility] styleCode="Bold Jsohua ">Nucleated Red Medical Blood Cell Center </content>0.0 [...] ics"> (8.0-11.0 [place])</content> ID Date Data Source GFR(Creatinine).[id number] 07/13/2019 06:51:00 PM EST Anurag [facility] 0-0500 Name Value Range Interpretation Code Description Data Alyson rce(s) Supporting Document(s ) UNK > 60 <content [facility] styleCode="Bold"> Medical Cent er EGFR </content>127 GFR<content styleCode="Italic s"> (> 60 GFR)</content> ID Date Data Source [id number] 07/13/2019 06:51:[address] [facility] Name Value Range Interpretation Description Data [...] Source Liver Profile 07/27/2018 07:25:00 PM EST [facility] Name Value Range Interpretation Description [...] Data Source HematologyRou 07/27/2018 07:25:00 PM EST [facility] Name Value Range Interpretation Description [...] Date Data Source GFR(Creatinine) 07/27/2018 07:25:00 PM [facility] Name Value Range Interpretation Code Description Data Alyson rce(s) Supporting Document(s ) UNK > 60 <content [facility] styleCode="Bold"> Medical Cent er EGFR </content>178 GFR<content styleCode="Italic s"> (> 60 GFR)</content> ID Date Data Source BMP 07/27/2018 07:25:00 PM [facility] Name Value Range Interpretation Description Data Sup porting Code Source(s) Document(s ) Sodium 137-145 <content [facility] [Moles/volume] in styleCode="Bold"> [facility] Serum or Plasma Sodium Medical [...] saturation 97 % 97 % [facility] in Arterial blood [facility] Center by Pulse oximetry Heart rate 76 /min 76 /min [facility] Body height 165.621251 165.605498 cm [facility] Medical [place] Diastolic blood 72 mm[Hg] 72 mm[Hg] [facility] pressure Medical Center Systolic blood 138 mm[Hg] 138 mm[Hg] [facility] pressure Medical Center Body mass index 23.8 kg/m2 23.8 kg/m2 [facility] (BMI) [Ratio] Medical [facility] Body weight 65.777523 kg 65.462942 kg [facility] Measured Medical Center Body temperature 36.113895 36.058675 [facility] Respiratory rate 18 /min 18 /min [facility] Body temperature 36.870633 36.898823 [facility] Respiratory rate 19 /min 19 /min [facility] Oxygen saturation 96 % 96 % [facility] Arterial blood Medical Center by Pulse oximetry Heart rate 113 /min 113 /min [facility] Diastolic blood 76 mm[Hg] 76 mm[Hg] [facility] pressure Medical Center Systolic blood 136 mm[Hg] 136 mm[Hg] [facility] Center Body temperature 36.135052 36.639706 [facility] Respiratory rate 17 /min 17 /min [facility] Oxygen saturation 99 % 99 % [facility] Arterial blood [facility] Center by Pulse oximetry Heart rate 78 /min 78 /min [facility] Diastolic blood 77 mm[Hg] 77 mm[Hg] [facility] Center Systolic blood 123 mm[Hg] 123 mm[Hg] [facility] Center Body weight 54.585225 kg 54.463719 kg [facility] Measured Medical Center Body temperature 36.132427 36.783710 [facility] Respiratory rate 17 /min 17 /min [facility] Oxygen saturation 98 % 98 % [facility] blood [facility] Center by Pulse oximetry Heart rate 85 /min 85 /min [facility] Body height 167.987516 167.269896 cm [facility] Diastolic blood 73 mm[Hg] 73 mm[Hg] [facility] Center Systolic blood 126 mm[Hg] 126 mm[Hg] [facility] Center Body mass index 19.3 kg/m2 19.3 kg/m2 [facility] (BMI) [Ratio] Medical [facility] ter Body weight 70.197253 kg 70.119539 kg [facility] Measured [facility] Center Body temperature 36.166079 36.229204 [facility] Respiratory rate 18 /min 18 /min [facility] Oxygen saturation 97 % 97 % [facility] blood [facility] by Pulse oximetry Heart rate 84 /min 84 /min [facility] Body height 167.482227 167.303014 cm [facility] Diastolic blood 90 mm[Hg] 90 mm[Hg] [facility] Medical Center Systolic blood 134 mm[Hg] 134 mm[Hg] [facility] Center Body mass index 24.9 kg/m2 24.9 kg/m2 [facility] (BMI) [Ratio] Medical [place] [facility] Oxygen saturation 96 % 96 % [facility] Arterial blood Medical Center by Pulse oximetry Diastolic blood 79 mm[Hg] 79 mm[Hg] [facility] pressure Medical Center Systolic blood 136 mm[Hg] 136 mm[Hg] [facility] Medical Center Body temperature 36.621029 36.562554 [facility] Respiratory rate 18 /min 18 /min [facility] Oxygen saturation 94 % 94 % [facility] Arterial blood Medical Center by Pulse oximetry Heart rate 85 /min 85 /min [facility] Diastolic blood 82 mm[Hg] 82 mm[Hg] [facility] pressure Medical Center Systolic blood 145 mm[Hg] 145 mm[Hg] [facility] Body temperature 36.617826 36.894323 [facility] Respiratory rate 19 /min 19 /min [facility] Oxygen saturation 95 % 95 % [facility] Arterial blood Medical Center by Pulse oximetry Heart rate 61 /min 61 /min [facility] Diastolic blood 92 mm[Hg] 92 mm[Hg] [facility] pressure Medical Center Systolic blood 149 mm[Hg] 149 mm[Hg] [facility] Body temperature 36.433496 36.829224 [facility] Respiratory rate 18 /min 18 /min [facility] Oxygen saturation 99 % 99 % [facility] blood Medical Center by Pulse oximetry Heart rate 96 /min 96 /min [facility] Diastolic blood 95 mm[Hg] 95 mm[Hg] [facility] pressure Medical Center Systolic blood 126 mm[Hg] 126 mm[Hg] [facility] Medical Center Body temperature 36.674462 36.922992 [facility] Respiratory rate 18 /min 18 /min [facility] Oxygen saturation 98 % 98 % [facility] Arterial blood Medical Center by Pulse oximetry Heart rate 80 /min 80 /min [facility] Diastolic blood 80 mm[Hg] 80 mm[Hg] [facility] pressure Medical Center Systolic blood 124 mm[Hg] 124 mm[Hg] [facility] Body weight 58.712797 kg 58.142909 kg [facility] Center Body temperature 37.449701 37.696026 [facility] Respiratory rate 17 /min 17 /min [facility] Oxygen saturation 100 % 100 % [facility] Arterial blood [facility] Center by Pulse oximetry Heart rate 100 /min 100 /min [facility] Body height 167.552834 167.801704 cm [facility] Medical Center Diastolic blood 79 mm[Hg] 79 mm[Hg] [facility] pressure Medical Center Systolic blood 129 mm[Hg] 129 mm[Hg] [facility] Body mass index 20.9 kg/m2 20.9 kg/m2 [facility] (BMI) [Ratio] Medical [facility] ter Body temperature 36.071113 36.493412 [facility] Respiratory rate 18 /min 18 /min [facility] Oxygen saturation 98 % 98 % [facility] blood [facility] by Pulse oximetry Heart rate 80 /min 80 /min [facility] Diastolic blood 78 mm[Hg] 78 mm[Hg] [facility] Systolic blood 122 mm[Hg] 122 mm[Hg] [facility] Body temperature 36.260537 36.172838 [facility] Respiratory rate 18 /min 18 /min [facility] Oxygen saturation 98 % 98 % [facility] blood [facility] by Pulse oximetry Heart rate 86 /min 86 /min [facility] Diastolic blood 80 mm[Hg] 80 mm[Hg] [facility] Systolic blood 127 mm[Hg] 127 mm[Hg] [facility] Body temperature 37.658768 37.217518 [facility] Respiratory rate 18 /min 18 /min [facility] Oxygen saturation 96 % 96 % [facility] blood [facility] by Pulse oximetry Heart rate 84 /min 84 /min [facility] Diastolic blood 89 mm[Hg] 89 mm[Hg] [facility] Systolic blood 153 mm[Hg] 153 mm[Hg] [facility] Body temperature 36.588628 36.083437 [facility] Respiratory rate 18 /min 18 /min [facility] Oxygen saturation 98 % 98 % [facility] Arterial blood [facility] by Pulse oximetry Heart rate 64 /min 64 /min [facility] Diastolic blood 91 mm[Hg] 91 mm[Hg] [facility] [place] Systolic blood 169 mm[Hg] 169 mm[Hg] [facility] Body temperature 36.148644 36.529866 [facility] Respiratory rate 18 /min 18 /min [facility] Oxygen saturation 98 % 98 % [facility] Arterial blood [facility] by Pulse oximetry Heart rate 71 /min 71 /min [facility] Diastolic blood 71 mm[Hg] 71 mm[Hg] [facility] Systolic blood 139 mm[Hg] 139 mm[Hg] [facility] Body temperature 36.012512 36.949473 [facility] Respiratory rate 17 /min 17 /min [facility] Oxygen saturation 98 % 98 % [facility] blood [facility] by Pulse oximetry Heart rate 73 /min 73 /min [facility] Diastolic blood 66 mm[Hg] 66 mm[Hg] [facility] Systolic blood 132 mm[Hg] 132 mm[Hg] [facility] Body temperature 37.649076 37.591477 [facility] Respiratory rate 17 /min 17 /min [facility] Oxygen saturation 98 % 98 % [facility] blood [facility] by Pulse oximetry Heart rate 85 /min 85 /min [facility] Diastolic blood 87 mm[Hg] 87 mm[Hg] [facility] Systolic blood 154 mm[Hg] 154 mm[Hg] [facility] Body weight 63.449093 kg 63.145697 kg [facility] Body temperature 37.091261 37.532758 [facility] Respiratory rate 18 /min 18 /min [facility] Oxygen saturation 96 % 96 % [facility] blood [facility] by Pulse oximetry Heart rate 82 /min 82 /min [facility] Body height 172.892599 172.636007 cm [facility] Diastolic blood 90 mm[Hg] 90 mm[Hg] [facility] Systolic blood 146 mm[Hg] 146 mm[Hg] [facility] Body mass index 21.2 kg/m2 21.2 kg/m2 [facility] (BMI) [Ratio] [facility] Body temperature 36.223260 36.677460 [facility] Respiratory rate 18 /min 18 /min [facility] Oxygen saturation 97 % 97 % [facility] Arterial blood [facility] by Pulse oximetry Heart rate 69 /min 69 /min [facility] Diastolic blood mm[Hg] [facility] Systolic blood mm[Hg] [facility] Body weight 65.550313 kg 65.927682 kg [facility] Body temperature 36.891122 36.659996 [facility] Respiratory rate 17 /min 17 /min [facility] Oxygen saturation 99 % 99 % [facility] blood [facility] by Pulse oximetry Heart rate 80 /min 80 /min [facility] Body height 167.240997 167.107318 cm [facility] Diastolic blood 78 mm[Hg] 78 mm[Hg] [facility] Systolic blood 123 mm[Hg] 123 mm[Hg] [facility] Body mass index 23.1 kg/m2 23.1 kg/m2 [facility] (BMI) [Ratio] [facility] Body weight 63.424519 kg 63.176849 kg [facility] Body temperature 37.750874 37.890113 [facility] Respiratory rate 18 /min 18 /min [facility] Oxygen saturation 93 % 93 % [facility] by Pulse oximetry Heart rate 82 /min 82 /min [facility] Body height 167.239639 167.583023 cm [facility] Diastolic blood 105 mm[Hg] 105 mm[Hg] [facility] Systolic blood 157 mm[Hg] 157 mm[Hg] [facility] Body mass index 22.5 kg/m2 22.5 kg/m2 [facility] (BMI) [Ratio] [facility] [address] Body weight 68.290284 kg 68.664006 kg [facility] Body temperature 36.106928 36.057897 [facility] Respiratory rate 20 /min 20 /min [facility] Oxygen saturation 100 % 100 % [facility] Arter[facility] blood [facility] by Pulse oximetry Heart rate 101 /min 101 /min [facility] Body height 165.392198 165.006327 cm [facility] [place] Diastolic blood 80 mm[Hg] 80 mm[Hg] [facility] Systolic blood 140 mm[Hg] 140 mm[Hg] [facility] Body mass index 24.9 kg/m2 24.9 kg/m2 [facility] (BMI) [Ratio] [facility] Body temperature 36.421998 36.232282 [facility] Respiratory rate 18 /min 18 /min [facility] Oxygen saturation 97 % 97 % [facility] Arterial blood [facility] by Pulse oximetry Heart rate 88 /min 88 /min [facility] Diastolic blood 78 mm[Hg] 78 mm[Hg] [facility] pressure [facility] Systolic blood 145 mm[Hg] 145 mm[Hg] [facility] Body temperature 36.728005 36.540840 [facility] Respiratory rate 19 /min 19 /min [facility] Oxygen saturation 97 % 97 % [facility] blood [facility] by Pulse oximetry Heart rate 94 /min 94 /min [facility] Diastolic blood 86 mm[Hg] 86 mm[Hg] [facility] Systolic blood 148 mm[Hg] 148 mm[Hg] [facility] Body temperature 36.725105 36.642149 [facility] Oxygen saturation 99 % 99 % [facility] blood [facility] by Pulse oximetry Heart rate 89 /min 89 /min [facility] Body weight 77.987060 kg 77.091035 kg [facility] Body temperature 37.000479 37.399215 [facility] Respiratory rate 18 /min 18 /min [facility] Oxygen saturation 97 % 97 % [facility] Arterial blood [facility] by Pulse oximetry Heart rate 99 /min 99 /min [facility] Body height 165.665151 165.530027 cm [facility] Diastolic blood 87 mm[Hg] 87 mm[Hg] [facility] Systolic blood 145 mm[Hg] 145 mm[Hg] [facility] Body mass index 28.2 kg/m2 28.2 kg/m2 [facility] (BMI) [Ratio] [facility] Body temperature 36.144155 36.182210 [facility] Respiratory rate 17 /min 17 /min [facility] Oxygen saturation 98 % 98 % [facility] Arterial blood [facility] by Pulse oximetry Heart rate 103 /min 103 /min [facility] Diastolic blood 81 mm[Hg] 81 mm[Hg] [facility] Systolic blood 128 mm[Hg] 128 mm[Hg] [facility] Body weight 58.060999 kg 58.978066 kg [facility] Body temperature 36.220997 36.714592 [facility] Respiratory rate 17 /min 17 /min [facility] Oxygen saturation 99 % 99 % [facility] blood [facility] by Pulse oximetry Heart rate 112 /min 112 /min [facility] Body height 167.943079 167.7977[address] [facility] Diastolic blood 90 mm[Hg] 90 mm[Hg] [facility] Systolic blood 122 mm[Hg] 122 mm[Hg] [facility] Body mass index 20.9 kg/m2 20.9 kg/m2 [facility] (BMI) [Ratio] [facility] Body temperature 36.409443 36.111970 [facility] Respiratory rate 16 /min 16 /min [facility] Oxygen saturation 98 % 98 % [facility] Arterial blood [facility] by Pulse oximetry Heart rate 73 /min 73 /min [facility] Diastolic blood 73 mm[Hg] 73 mm[Hg] [facility] Systolic blood 154 mm[Hg] 154 mm[Hg] [facility] Body weight 72.179048 kg 72.467658 kg [facility] Body temperature 36.979149 36.730746 [facility] Respiratory rate 20 /min 20 /min [facility] Oxygen saturation 96 % 96 % [facility] blood [facility] by Pulse oximetry Heart rate 72 /min 72 /min [facility] Body height 167.964482 167.355057 cm [facility] Diastolic blood 80 mm[Hg] 80 mm[Hg] [facility] Systolic blood 136 mm[Hg] 136 mm[Hg] [facility] Body mass index 25.8 kg/m2 25.8 kg/m2 [facility] (BMI) [Ratio] [facility] Body temperature 36.135317 36.016100 [facility] Respiratory rate 16 /min 16 /min [facility] Oxygen saturation 96 % 96 % [facility] blood [facility] by Pulse oximetry Heart rate 74 /min 74 /min [facility] Diastolic blood 79 mm[Hg] 79 mm[Hg] [facility] Systolic blood 136 mm[Hg] 136 mm[Hg] [facility] Body temperature 37.040813 37.625364 [facility] Body weight 65.103465 kg 65.273031 kg [facility] Body temperature 36.393342 36.032929 [facility] Respiratory rate 17 /min 17 /min [facility] Oxygen saturation 99 % 99 % [facility] by Pulse oximetry Heart rate 102 /min 102 /min [facility] Diastolic blood 51 mm[Hg] 51 mm[Hg] [facility] Systolic blood 134 mm[Hg] 134 mm[Hg] [facility] Body weight 72.739189 kg 72.510428 kg [facility] Body temperature 36.536522 36.402669 [facility] Respiratory rate 17 /min 17 /min [facility] Oxygen saturation 98 % 98 % [facility] blood [facility] by Pulse oximetry Heart rate 90 /min 90 /min [facility] Body height 157.112268 157.852074 cm [facility] Diastolic blood 98 mm[Hg] 98 mm[Hg] [facility] Systolic blood 136 mm[Hg] 136 mm[Hg] [facility] Body mass index 29.2 kg/m2 29.2 kg/m2 [facility] (BMI) [Ratio] [facility] Body temperature 36.722353 36.870039 [facility] Respiratory rate 19 /min 19 /min [facility] Oxygen saturation 97 % 97 % [facility] Arterial blood [facility] by Pulse oximetry Heart rate 78 /min 78 /min [facility] Diastolic blood 99 mm[Hg] 99 mm[Hg] [facility] Systolic blood 152 mm[Hg] 152 mm[Hg] [facility] Body temperature 36.266694 36.201123 [facility] Respiratory rate 18 /min 18 /min [facility] Oxygen saturation 98 % 98 % [facility] Arterial blood [facility] by Pulse oximetry Heart rate 80 /min 80 /min [facility] Diastolic blood 78 mm[Hg] 78 mm[Hg] [facility] pressure [facility] Systolic blood 112 mm[Hg] 112 mm[Hg] [facility] Body temperature 36.414168 36.935416 [facility] Respiratory rate 18 /min 18 /min [facility] Oxygen saturation 98 % 98 % [facility] Arterial blood [facility] by Pulse oximetry Heart rate 87 /min 87 /min [facility] Diastolic blood 67 mm[Hg] 67 mm[Hg] [facility] Systolic blood 115 mm[Hg] 115 mm[Hg] [facility] Body temperature 36.515897 36.539070 [facility] Respiratory rate 18 /min 18 /min [facility] Oxygen saturation 98 % 98 % [facility] Arterial blood [facility] by Pulse oximetry Heart rate 71 /min 71 /min [facility] Diastolic blood 78 mm[Hg] 78 mm[Hg] [facility] Center Systolic blood 131 mm[Hg] 131 mm[Hg] [facility] Body temperature 36.825100 36.633209 [facility] Respiratory rate 18 /min 18 /min [facility] Oxygen saturation 100 % 100 % [facility] Arterial blood [facility] by Pulse oximetry Heart rate 78 /min 78 /min [facility] Diastolic blood 73 mm[Hg] 73 mm[Hg] [facility] pressure [facility] [place] Systolic blood 138 mm[Hg] 138 mm[Hg] [facility] Body weight 72.152603 kg 72.081350 kg [facility] Body temperature 36.047588 36.264422 [facility] Respiratory rate 17 /min 17 /min [facility] Oxygen saturation 99 % 99 % [facility] Arterial blood [facility] by Pulse oximetry Heart rate 66 /min 66 /min [facility] Diastolic blood 90 mm[Hg] 90 mm[Hg] [facility] Systolic blood 158 mm[Hg] 158 mm[Hg] [facility] Body temperature 36.199243 36.164685 [facility] Respiratory rate 19 /min 19 /min [facility] Oxygen saturation 98 % 98 % [facility] Arterial blood [facility] by Pulse oximetry Heart rate 81 /min 81 /min [facility] Diastolic blood 77 mm[Hg] 77 mm[Hg] [facility] Systolic blood 132 mm[Hg] 132 mm[Hg] [facility] Body temperature 36.556225 36.819978 [facility] Respiratory rate 18 /min 18 /min [facility] Oxygen saturation 97 % 97 % [facility] Arterial blood [facility] by Pulse oximetry Heart rate 70 /min 70 /min [facility] Diastolic blood 84 mm[Hg] 84 mm[Hg] [facility] Systolic blood 128 mm[Hg] 128 mm[Hg] [facility] Body temperature 36.682860 36.429686 [facility] Respiratory rate 17 /min 17 /min [facility] Oxygen saturation 96 % 96 % [facility] Arterial blood [facility] by Pulse oximetry Heart rate 72 /min 72 /min [facility] Diastolic blood 76 mm[Hg] 76 mm[Hg] [facility] Systolic blood 126 mm[Hg] 126 mm[Hg] [facility] Body temperature 36.401705 36.593085 [facility] Respiratory rate 18 /min 18 /min [facility] Heart rate 70 /min 70 /min [facility] Diastolic blood 76 mm[Hg] 76 mm[Hg] [facility] Systolic blood 131 mm[Hg] 131 mm[Hg] [facility] Body weight 61.391712 kg 61.132979 kg [facility] Body temperature 36.678964 36.355387 [facility] Respiratory rate 18 /min 18 /min [facility] Oxygen saturation 97 % 97 % [facility] blood [facility] by Pulse oximetry Heart rate 70 /min 70 /min [facility] Body height 167.787714 167.6889[address] [facility] Diastolic blood 79 mm[Hg] 79 mm[Hg] [facility] Systolic blood 130 mm[Hg] 130 mm[Hg] [facility] Body mass index 21.7 kg/m2 21.7 kg/m2 [facility] (BMI) [Ratio] [facility] Body weight 64.502846 kg 64.776622 kg [facility] Body temperature 36.195949 36.764934 [facility] Respiratory rate 20 /min 20 /min [facility] Oxygen saturation 9 % 9 % [facility] blood [facility] by Pulse oximetry Heart rate 75 /min 75 /min [facility] Body height 167.220626 167.492060 [address] [facility] Diastolic blood 97 mm[Hg] 97 mm[Hg] [facility] Systolic blood 144 mm[Hg] 144 mm[Hg] [facility] Body mass index 22.7 kg/m2 22.7 kg/m2 [facility] (BMI) [Ratio] [facility] Body temperature 37.264007 37.121207 [facility] Respiratory rate 18 /min 18 /min [facility] Oxygen saturation 96 % 96 % [facility] Arterial blood [facility] by Pulse oximetry Heart rate 98 /min 98 /min [facility] Diastolic blood 67 mm[Hg] 67 mm[Hg] [facility] [place] Systolic blood 114 mm[Hg] 114 mm[Hg] [facility] Body temperature 36.440661 36.563473 [facility] Respiratory rate 18 /min 18 /min [facility] Oxygen saturation 97 % 97 % [facility] Arterial blood [facility] by Pulse oximetry Heart rate 105 /min 105 /min [facility] Diastolic blood 65 mm[Hg] 65 mm[Hg] [facility] [place] Systolic blood 107 mm[Hg] 107 mm[Hg] [facility] Body temperature 36.527437 36.227293 [facility] Respiratory rate 18 /min 18 /min [facility] Oxygen saturation 98 % 98 % [facility] blood [facility] by Pulse oximetry Heart rate 87 /min 87 /min [facility] Diastolic blood 78 mm[Hg] 78 mm[Hg] [facility] Systolic blood 139 mm[Hg] 139 mm[Hg] [facility] Body temperature 36.338267 36.033198 [facility] Respiratory rate 20 /min 20 /min [facility] Oxygen saturation 95 % 95 % [facility] blood [facility] by Pulse oximetry Heart rate 91 /min 91 /min [facility] Diastolic blood 88 mm[Hg] 88 mm[Hg] [facility] Systolic blood 136 mm[Hg] 136 mm[Hg] [facility] Body temperature 36.676029 36.533524 [facility] Respiratory rate 17 /min 17 /min [facility] Oxygen saturation 98 % 98 % [facility] blood [facility] by Pulse oximetry Heart rate 80 /min 80 /min [facility] Diastolic blood 86 mm[Hg] 86 mm[Hg] [facility] [place] Systolic blood 139 mm[Hg] 139 mm[Hg] [facility] Body temperature 36.698986 36.647828 [facility] Respiratory rate 18 /min 18 /min [facility] Oxygen saturation 97 % 97 % [facility] Arterial blood [facility] by Pulse oximetry Heart rate 86 /min 86 /min [facility] Diastolic blood 88 mm[Hg] 88 mm[Hg] [facility] pressure [facility] Systolic blood 145 mm[Hg] 145 mm[Hg] [facility] Body weight 75.781749 kg 75.529025 kg [facility] Body temperature 36.492059 36.038890 [facility] Respiratory rate 19 /min 19 /min [facility] Oxygen saturation 98 % 98 % [facility] Arterial blood [facility] by Pulse oximetry Heart rate 88 /min 88 /min [facility] Body height 165.833481 165.517396 cm [facility] Diastolic blood 84 mm[Hg] 84 mm[Hg] [facility] Systolic blood 144 mm[Hg] 144 mm[Hg] [facility] Body mass index 27.5 kg/m2 27.5 kg/m2 [facility] (BMI) [Ratio] [facility] Body temperature 36.914894 36.069867 [facility] Respiratory rate 18 /min 18 /min [facility] Oxygen saturation 97 % 97 % [facility] Arterial blood [facility] by Pulse oximetry Heart rate 90 /min 90 /min [facility] Diastolic blood 93 mm[Hg] 93 mm[Hg] [facility] Systolic blood 138 mm[Hg] 138 mm[Hg] [facility] Body temperature 36.035811 36.762022 [facility] Respiratory rate 18 /min 18 /min [facility] Oxygen saturation 97 % 97 % [facility] Arterial blood [facility] by Pulse oximetry Heart rate 19 /min 19 /min [facility] Diastolic blood 74 mm[Hg] 74 mm[Hg] [facility] Systolic blood 134 mm[Hg] 134 mm[Hg] [facility] Patient Treatment Plan of Care Planned Activity Planned Date Details Description Data Source (s) Ibuprofen 600 MG Oral [facility]
--- NOTE | 2020-03-13 10:19 | PN ---
S CIWA - CIWA Score Nausea/Vomitin-Mild Nausea/No Vomiting Muscle Tremors: 3 Anxiety: 3 Agitation: 2 Paroxysmal Sweats: No Perspiration Orientation: 0-Oriented Tacttile Disturbances: 1-Very Mild Itch/Numbness Auditory Disturbances: 0-None Visual Disturbances: 0-None Headache: 2-Mild CIWA-Ar Total Score: 12 [facility] Progress Note (SOAP) Subjective: alert,irritable,anxious,interrupted sleep,tremor,aching pain,ambulation on the unit Objective: 03/13/20 16:41 Vital Signs Temperature 97.7 F 03/13/20 13:00 Pulse Rate 57 L 03/13/20 13:00 Respiratory Rate 18 03/13/20 13:00 Blood Pressure 152/70 03/13/20 13:00 O2 Sat by Pulse Oximetry (%) 99 03/13/20 13:00 03/13/20 16:41 Laboratory Last Values POC Glucometer 79 UNITS (80-120) 03/13/20 05:23 Syphilis Serology Non-reactive (NONREACTIVE) 03/13/20 07:00 HIV Ag/Ab Combo Qual Negative (NEGATIVE) 03/13/20 07:00 Assessment: 03/13/20 16:42 withdrawal symptom Plan: continue detox librium regimen
[2020-03-13] MEDS: NICOTINE 14 MG/24 HOURS TOPICAL PATCH TD SCH (10:20)
[2020-03-13] MEDS: PRENATAL VITAMINS W/ FOLIC ACID TABLET (FP) PO SCH (10:26)
[2020-03-13] MEDS ORDERED: PNEUMOC 13-VAL CONJ-DIP CRM/PF 0.5 ML DISP.SYRIN IM ONE (12:00)
[2020-03-13] MEDS ORDERED: PNEUMOCOCCAL 23 VACCINE 0.5 ML VIAL IM ONE (12:00)
[2020-03-13] MEDS ORDERED: FLU VACCINE (FLULAVAL) PF 60 MCG/0.5 ML SYRINGE 2020-2021 IM ONE (12:00)
[2020-03-13] MEDS: THIAMINE HCL 100 MG TABLET (FP) PO SCH (22:12)
[2020-03-13] MEDS: MELATONIN 5 MG TABLETS PO SCH (22:12)
[2020-03-13] MEDS: IBUPROFEN 400 MG TABLET (FP) PO PRN (22:13)
[2020-03-14] MEDS: chlordiazePOXIDE HCL 25 MG CAPSULE PO SCH ×4 (05:23→22:07)
[2020-03-14] MEDS: IBUPROFEN 400 MG TABLET (FP) PO PRN ×2 (10:07→17:54)
[2020-03-14] MEDS: NICOTINE 14 MG/24 HOURS TOPICAL PATCH TD SCH (10:07)
[2020-03-14] MEDS: PRENATAL VITAMINS W/ FOLIC ACID TABLET (FP) PO SCH (10:07)
--- NOTE | 2020-03-14 10:33 | PN ---
S CIWA - CIWA Score Nausea/Vomitin-Mild Nausea/No Vomiting Muscle Tremors: 2 Anxiety: 2 Agitation: 2 Paroxysmal Sweats: No Perspiration Orientation: 0-Oriented Tacttile Disturbances: 1-Very Mild Itch/Numbness Auditory Disturbances: 0-None Visual Disturbances: 0-None Headache: 2-Mild CIWA-Ar Total Score: 10 BHS Progress Note (SOAP) Subjective: alert,irritable,ambulation on the unit,aching pain,nausea,pain in left knee ar thritis Objective: 03/14/20 10:29 Vital Signs Temperature 97.1 F L 03/14/20 08:25 Pulse Rate 58 L 03/14/20 08:25 Respiratory Rate 18 03/14/20 08:25 Blood Pressure 158/77 03/14/20 08:25 O2 Sat by Pulse Oximetry (%) 95 03/14/20 08:25 Laboratory Last Values POC Glucometer 99 UNITS (80-120) 03/14/20 05:22 Syphilis Serology Non-reactive (NONREACTIVE) 03/13/20 07:00 COVID-19 (TIMOTEO) Not detected (Not Detected) 03/13/20 09:00 HIV Ag/Ab Combo Qual Negative (NEGATIVE) 03/13/20 07:00 03/14/20 10:32 Laboratory Last Values POC Glucometer 99 UNITS (80-120) 03/14/20 05:22 Syphilis Serology Non-reactive (NONREACTIVE) 03/13/20 07:00 COVID-19 (TIMOTEO) Not detected (Not Detected) 03/13/20 09:00 HIV Ag/Ab Combo Qual Negative (NEGATIVE) 03/13/20 07:00 Assessment: 03/14/20 10:37 withdrawal symptom Plan: continue detox librium regimen,lamine rodriguez to left knee bid,elisabeth bandage left knee day time
[2020-03-14] MEDS: METHYL SALICYLATE/MENTHOL OINT 30 GM TUBE TP SCH ×2 (11:24→22:08)
--- NOTE | 2020-03-14 14:00 | CONSULT ---
[facility] Psychiatric Consult - Data Date of interview: 03/14/20 Admission source: [facility] Identifying data: Readmission to [address] [place] [address] for this 60 y/o AA male, self-referred for detoxification treatment. NICOL issues : alcohol, heroin, cannabis, nicotine. Patient is single, a father of one, domiciled (lives with sister), unemployed and supported on SSI benefits. Substance Abuse History: Discussed with the patient. NICOL profile as follows : Smoking history: Current every day smoker. Have you smoked in the past 12 months: Yes. Approximately how many cigarettes per day: 20. Cigars Per Day: 1. Hx Chewing Tobacco Use: No. Initiated information on smoking cessation: Yes. 'Breaking Loose' booklet given: 03/13/20. - Substance & Tx. History. Hx Alcohol Use: Yes. Hx Substance Use: Yes. Substance Use Type: Alcohol, Marijuana. Hx Substance Use Treatment: Yes ([facility]). - Substances abused. Alcohol. Substance route: Oral. Frequency: Daily. Amount used: 2 pints vodka and 2 x 6 pack 24oz. beer. Age of first use: 7. Date of last use: 03/12/20. History of multiple NICOL treatment failures. 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 Psychiatric History: Patient was initially diagnosed with Bipolar Disorder in the 1979's while staying at the [facility] (under the care of Dr Do). Mr Myles presents with history of a few psychiatric hospitalizations ([facility]). Received psychiatric care during incarceration at the [facility] in [facility], about 15 years ago. Mr Myles used to see a psychiatrist at the [facility] outpatient program in [facility]. Dropped out of psychiatric aftercare for several months. He is usually prescribed zyprexa 5 mg/daily (rarely taken once discharged from [facility]). Patient has not been able to get OPD services, due to restrictions from COVID-19 pandemic. He admits to one suicide attempt via hanging (1984). Physical/Sexual Abuse/Trauma History: Traumas : incarcerations, multiple deaths in the family, addictions and conflicts with siblings. Additional Comment: Urine drug screen results: THC-Marijuana, BZO- Benzodiazepines. Noted. Mental Status Exam - Mental Status Exam Alert and Oriented to: Time, Place, Person Cognitive Function: Grossly Intact Patient Appearance: Unkempt, Disheveled Mood: Nervous, Irritable Affect: Mood Congruent, Constricted Patient Behavior: Fatigued, Appropriate, Cooperative Speech Pattern: Clear, Appropriate Voice Loudness: Normal Thought Process: Goal Oriented Thought Disorder: Not Present Hallucinations: Denies Suicidal Ideation: Denies Homicidal Ideation: Denies Insight/Judgement: Poor Sleep: Poorly, Difficulty falling asleep Appetite: Good Gait/Station: Normal Psychiatric Findings - Problem List ([place] 1, 2,3) (1) Alcohol dependence with uncomplicated withdrawal Current Visit: Yes Status: Acute (2) Opioid dependence Current Visit: Yes Status: Chronic Qualifiers: Substance use status: uncomplicated Qualified Code(s): F11.20 - Opioid dependence, uncomplicated (3) cannabis dependence Current Visit: Yes Status: Chronic (4) Nicotine dependence Current Visit: Yes Status: Chronic Qualifiers: Nicotine product type: cigarettes Substance use status: uncomplicated Qualified Code(s): F17.210 - Nicotine dependence, cigarettes, uncomplicated (5) Substance induced mood disorder Current Visit: Yes Status: Acute (6) Bipolar disorder Current Visit: Yes Status: Chronic (7) Insomnia Current Visit: Yes Status: Chronic Qualifiers: Insomnia type: unspecified Qualified Code(s): G47.00 - Insomnia, unspecified - Initial Treatment Plan Initial Treatment Plan: Psychoeducation. Sleep hygiene. Detoxication in progress. Olanzapine 5 mg po hs. Side effectrs/benefits are discussed with the patient. Consent granted to MD. Givens.
[2020-03-14] MEDS ORDERED: NEOMYCIN/POLYMYX/HC OPHTHALMIC SUSPENSION 7.5 ML BOTTLE OS ONE (14:06)
--- NOTE | 2020-03-14 14:18 | PN ---
JEREMÍAS Progress Note Note: patient complained of pain in lower back chronic low back pain lidociane patch ordered complained of irritation and slight swelling of left lower eyelid ,cortisporin oph suspension 1 gtt left eye q 4hrs while awake close monitoring
[2020-03-14] MEDS: NEOMYCIN/POLYMYX/HC OPHTHALMIC SUSPENSION 7.5 ML BOTTLE OS SCH ×2 (17:52→22:50)
[2020-03-14] MEDS: LIDOCAINE 5% TOPICAL PATCH TP SCH (17:53)
[2020-03-14] MEDS: MELATONIN 5 MG TABLETS PO SCH (22:07)
[2020-03-14] MEDS: THIAMINE HCL 100 MG TABLET (FP) PO SCH (22:07)
[2020-03-14] MEDS: OLANZapine 5 MG TABLET PO SCH (22:07)
[2020-03-14] MEDS: LIDOCAINE PATCH REMOVAL MC SCH (22:08)
[2020-03-15] MEDS ORDERED: chlordiazePOXIDE HCL 10 MG CAPSULE PO PRN
[2020-03-15] MEDS: chlordiazePOXIDE HCL 10 MG CAPSULE PO SCH ×4 (05:17→22:01)
[2020-03-15] MEDS: NEOMYCIN/POLYMYX/HC OPHTHALMIC SUSPENSION 7.5 ML BOTTLE OS SCH ×5 (06:30→22:01)
[2020-03-15] MEDS: METHYL SALICYLATE/MENTHOL OINT 30 GM TUBE TP SCH ×2 (10:12→22:01)
[2020-03-15] MEDS: PRENATAL VITAMINS W/ FOLIC ACID TABLET (FP) PO SCH (10:13)
[2020-03-15] MEDS: NICOTINE 14 MG/24 HOURS TOPICAL PATCH TD SCH (10:13)
[2020-03-15] MEDS: LIDOCAINE 5% TOPICAL PATCH TP SCH (10:14)
--- NOTE | 2020-03-15 11:25 | PN ---
[facility] CIWA - CIWA Score Nausea/Vomitin-No Nausea/No Vomiting Muscle Tremors: None Anxiety: 2 Agitation: 1-Slight > Activity Paroxysmal Sweats: 2 Orientation: 0-Oriented Tacttile Disturbances: 0-None Auditory Disturbances: 0-None Visual Disturbances: 0-None Headache: 1-Very Mild CIWA-Ar Total Score: 6 BHS Progress Note (SOAP) Subjective: c/o sweats, headache, and anxiety. Objective: 03/15/20 11:24 Vital Signs 03/15/20 03/15/20 06:14 08:40 Temperature 97.5 F L 96.9 F L Pulse Rate 51 L 61 Respiratory 16 18 Rate Blood Pressure 149/73 136/85 O2 Sat by Pulse 97 Oximetry (%) Assessment: 03/15/20 11:25 AOX3, in no acute respiratory distress. Full ROM, ambulating in the unit. Withdrawal symptoms. Plan: continue detox.
[2020-03-15] MEDS: hydrOXYzine PAMOATE 25 MG CAPSULE (FP) PO PRN ×2 (13:26→22:01)
[2020-03-15] MEDS: ACETAMINOPHEN 325 MG TABLET (FP) PO PRN (17:57)
[2020-03-15] MEDS: MELATONIN 5 MG TABLETS PO SCH (22:01)
[2020-03-15] MEDS: THIAMINE HCL 100 MG TABLET (FP) PO SCH (22:01)
[2020-03-15] MEDS: LIDOCAINE PATCH REMOVAL MC SCH (22:01)
[2020-03-15] MEDS: OLANZapine 5 MG TABLET PO SCH (22:01)
[2020-03-16] MEDS: chlordiazePOXIDE HCL 10 MG CAPSULE PO SCH ×2 (05:39→17:56)
[2020-03-16] MEDS: NEOMYCIN/POLYMYX/HC OPHTHALMIC SUSPENSION 7.5 ML BOTTLE OS SCH ×5 (05:39→22:08)
--- NOTE | 2020-03-16 09:47 | PN ---
S CIWA - CIWA Score Nausea/Vomitin-No Nausea/No Vomiting Muscle Tremors: 1-None Visible, but Trenary Anxiety: 1-Mildly Anxious Agitation: 0-Normal Activity Paroxysmal Sweats: No Perspiration Orientation: 0-Oriented Tacttile Disturbances: 0-None Auditory Disturbances: 0-None Visual Disturbances: 1-Very Mild Sensitivity Headache: 0-None Present CIWA-Ar Total Score: 3 BHS Progress Note (SOAP) Subjective: 60 years old male was admitted on 03/13/20 for alcohol withdrawal sx management treating with [facility] feels better today discussing aftercare with staff mr friedman prefers to go [facility] Objective: 03/16/20 09:48 Vital Signs - 24 hr 03/15/20 03/15/20 03/15/20 12:42 16:48 20:31 Temperature 97.5 F L 96.9 F L 97.3 F L Pulse Rate 72 52 L 60 Respiratory 18 18 18 Rate Blood Pressure 156/80 144/81 131/75 O2 Sat by Pulse 96 97 Oximetry (%) 03/16/20 06:20 Temperature 97.3 F L Pulse Rate 79 Respiratory 16 Rate Blood Pressure 118/59 L O2 Sat by Pulse 97 Oximetry (%) Laboratory Tests 03/13/20 03/13/20 03/13/20 05:23 07:00 07:00 POC Glucometer 79 Syphilis Serology Non-reactive COVID-19 (TIMOTEO) HIV Ag/Ab Combo Qual Negative 03/13/20 03/14/20 03/15/20 09:00 05:22 05:16 POC Glucometer 99 105 Syphilis Serology COVID-19 (TIMOTEO) Not detected HIV Ag/Ab Combo Qual 03/15/20 03/16/20 16:21 05:37 POC Glucometer 130 135 Syphilis Serology COVID-19 (TIMOTEO) HIV Ag/Ab Combo Qual 03/16/20 09:49 mr friedman came to patient [facility] was alcohol intoxicated sent to ER discharged on 03/10/20 return to patient [facility] on 03/13/20 for alcohol withdrawal management lab see ER Assessment: 03/16/20 09:51 alcohol withdrawal Plan: [facility]
[2020-03-16] MEDS: NICOTINE 14 MG/24 HOURS TOPICAL PATCH TD SCH (10:07)
[2020-03-16] MEDS: METHYL SALICYLATE/MENTHOL OINT 30 GM TUBE TP SCH ×2 (10:08→22:07)
[2020-03-16] MEDS: PRENATAL VITAMINS W/ FOLIC ACID TABLET (FP) PO SCH (10:09)
[2020-03-16] MEDS: LIDOCAINE 5% TOPICAL PATCH TP SCH (10:09)
[2020-03-16] MEDS: THIAMINE HCL 100 MG TABLET (FP) PO SCH (22:07)
[2020-03-16] MEDS: OLANZapine 5 MG TABLET PO SCH (22:07)
[2020-03-16] MEDS: MELATONIN 5 MG TABLETS PO SCH (22:08)
[2020-03-16] MEDS: LIDOCAINE PATCH REMOVAL MC SCH (22:08)
[2020-03-16] MEDS: hydrOXYzine PAMOATE 25 MG CAPSULE (FP) PO PRN (22:08)
[2020-03-17] MEDS ORDERED: chlordiazePOXIDE HCL 10 MG CAPSULE PO ONE (05:00)
[2020-03-17] MEDS: NEOMYCIN/POLYMYX/HC OPHTHALMIC SUSPENSION 7.5 ML BOTTLE OS SCH (05:11)
[2020-03-17 06:34] VITALS: BP 127/78; PULSE 81; TEMP 97.5
--- NOTE | 2020-03-17 09:05 | DS ---
[facility] Detox Discharge Summary Admission Date: 03/13/20 Discharge Date: 03/17/20 - History Present History: Alcohol Dependence Additional Comments: alert,oriented x 3 ambulation on the unit lung clear,no auscultation bilaterally no edema of legs patient is stable for discharge declined rehab follow up with after care program [facility] arrangement total time of discharge 35 minutes Pertinent Past History: syncope copd bipolar disorder insomnia arthritis - Physical Exam Results Vital Signs: Vital Signs Temperature 97.5 F L 03/17/20 06:34 Pulse Rate 81 03/17/20 06:34 Respiratory Rate 16 03/17/20 06:34 Blood Pressure 127/78 03/17/20 06:34 O2 Sat by Pulse Oximetry (%) 99 03/17/20 06:34 Pertinent Admission Physical Exam Findings: withdrawal signs and symptom Laboratory Last Values POC Glucometer 122 UNITS (80-120) 03/17/20 05:07 Syphilis Serology Non-reactive (NONREACTIVE) 03/13/20 07:00 COVID-19 (TIMOTEO) Not detected (Not Detected) 03/13/20 09:00 HIV Ag/Ab Combo Qual Negative (NEGATIVE) 03/13/20 07:00 Laboratory Last Values POC Glucometer 122 UNITS (80-120) 03/17/20 05:07 Syphilis Serology Non-reactive (NONREACTIVE) 03/13/20 07:00 COVID-19 (TIMOTEO) Not detected (Not Detected) 03/13/20 09:00 HIV Ag/Ab Combo Qual Negative (NEGATIVE) 03/13/20 07:00 Vital Signs Temperature 97.5 F L 03/17/20 06:34 Pulse Rate 81 03/17/20 06:34 Respiratory Rate 16 03/17/20 06:34 Blood Pressure 127/78 03/17/20 06:34 O2 Sat by Pulse Oximetry (%) 99 03/17/20 06:34 - Treatment Hospital Course: Detox Protocol Followed, Detoxed Safely, Responded well, Discharged Condition Good Patient has Accepted a Rehab Referral to: declined - Medication Discharge Medications: Ambulatory Orders Gabapentin [Neurontin] 300 mg PO BID #28 capsule 01/10/19 Olanzapine [ZyPREXA -] 10 mg PO HS #30 tablet 08/13/19 Ibuprofen [Motrin -] 600 mg PO Q6H PRN #90 tablet 01/31/20 Aspirin [ASA -] 81 mg PO DAILY #30 tab.chew 02/02/20 Pantoprazole Sodium [Protonix -] 40 mg PO DAILY #30 tablet.ec 02/02/20 - Diagnosis (1) Alcohol dependence with uncomplicated withdrawal Status: Acute (2) Syncope Status: Acute (3) Arthritis of left knee Status: Chronic (4) Bipolar disorder Status: Chronic (5) COPD (chronic obstructive pulmonary disease) Status: Chronic (6) Insomnia Status: Chronic Qualifiers: Insomnia type: unspecified Qualified Code(s): G47.00 - Insomnia, unspecified - AMA Did Patient Leave Against Medical Advice: No
--- NOTE | 2020-03-17 09:05 | PN ---
[facility] CIWA - CIWA Score Nausea/Vomitin-No Nausea/No Vomiting Muscle Tremors: None Anxiety: 1-Mildly Anxious Agitation: 0-Normal Activity Paroxysmal Sweats: No Perspiration Orientation: 0-Oriented Tacttile Disturbances: 0-None Auditory Disturbances: 0-None Visual Disturbances: 0-None Headache: 0-None Present CIWA-Ar Total Score: 1 S Progress Note (SOAP) Subjective: alert,no complaint Objective: 03/17/20 12:06 Vital Signs Temperature 97.5 F L 03/17/20 06:34 Pulse Rate 81 03/17/20 06:34 Respiratory Rate 16 03/17/20 06:34 Blood Pressure 127/78 03/17/20 06:34 O2 Sat by Pulse Oximetry (%) 99 03/17/20 06:34 Assessment: 03/17/20 12:07 detox completed,no withdrawal symptom Plan: stable for discharge today,follow up with after care program as arrangement
== END 2020-03-17 08:46 | disposition home or self-care (01) | DRG 773 ==
LOC: YASAS 01:16 → Y3N 01:51
PROVIDERS: ADMIT Allergy & Immunology; ATTEND Allergy & Immunology
PROC: HZ2ZZZZ Detoxification Services for Substance Abuse Treatment (ICD-10-PCS; principal; 2020-03-13)
DX: F10.230 Alcohol dependence with withdrawal, uncomplicated (principal); F11.20 Opioid dependence, uncomplicated; F12.20 Cannabis dependence, uncomplicated; F17.210 Nicotine dependence, cigarettes, uncomplicated; F19.24 Other psychoactive substance dependence with psychoactive substance-induced mood disorder; F25.9 Schizoaffective disorder, unspecified; F31.9 Bipolar disorder, unspecified; D64.9 Anemia, unspecified; G47.00 Insomnia, unspecified; J44.9 Chronic obstructive pulmonary disease, unspecified; M17.12 Unilateral primary osteoarthritis, left knee; M10.9 Gout, unspecified; M54.5 Low back pain; G89.29 Other chronic pain; H91.92 Unspecified hearing loss, left ear; R73.03 Prediabetes; R76.11 Nonspecific reaction to tuberculin skin test without active tuberculosis; Z56.0 Unemployment, unspecified
CPT/HCPCS: 36415; 82962; 86780; 87389; 90732; G0009; Q2036; U0003

== ENCOUNTER 2020-06-29 16:13 | Emergency (ER) | payer OTHER ==
[2020-06-29 16:24] VITALS: BP 151/78; PULSE 89; TEMP 98; BMI 24.1
[2020-06-29] MEDS ORDERED: ONDANSETRON 4 MG TABLET PO ONE (16:59)
[2020-06-29] MEDS ORDERED: ACETAMINOPHEN 325 MG TABLET (FP) PO ONE (16:59)
[2020-06-29] MEDS ORDERED: ONDANSETRON *ODT* 4 MG TABLET ONE ×2 (17:06→18:43)
[2020-06-29] MEDS ORDERED: ACETAMINOPHEN 325 MG TABLET (FP) ONE (17:06)
[2020-06-29 17:23] LABS: BASO % 0.9 % (0-2.0); EOS % 0.9 % (0-4.5); HEMATOCRIT 39.4 % (35.4-49); HEMOGLOBIN 13.1 GM/dL (11.7-16.9); LYMPH % 43.9 % (8-40); MCH 30.1 pg (25.7-33.7); MCHC 33.2 g/dl (32.0-35.9); MEAN CELL VOLUME 90.8 fl (80-96); MEAN PLT VOLUME 8.8 fl (7.5-11.1); MONO % 13.7 % (3.8-10.2); NEUT % 40.6 % (42.8-82.8); PLATELET COUNT 98 K/MM3 (134-434); RBC 4.34 M/mm3 (4.00-5.60); WHITE BLOOD COUNT 3.9 K/mm3 (4.0-10.0)
[2020-06-29 17:43] LABS: POTASSIUM 4.2 mmol/L (3.5-5.1)
[2020-06-29 17:45] LABS: ALBUMIN 3.7 g/dl (3.4-5.0); BLOOD UREA NITROGEN 6.1 mg/dL (7-18); CALCIUM 8.8 mg/dL (8.5-10.1)
[2020-06-29 17:48] LABS: CREATININE 0.8 mg/dL (0.55-1.3)
[2020-06-29 17:49] LABS: PHOSPHOROUS 3.2 mg/dL (2.5-4.9)
[2020-06-29 18:03] LABS: PLATELET ESTIMATE SLT DECREASE
[2020-06-29] MEDS ORDERED: ALBUTEROL SO4 HFA INHALER IH ONE (18:14)
[2020-06-29] MEDS ORDERED: DEXAMETHASONE 4 MG TABLET (FP) PO ONE (18:15)
[2020-06-29] MEDS ORDERED: DEXAMETHASONE 4 MG TABLET (FP) ONE (18:40)
[2020-06-29] MEDS ORDERED: IBUPROFEN 600 MG TABLET (FP) PO ONE (20:07)
[2020-06-29] MEDS ORDERED: IBUPROFEN 400 MG TABLET (FP) PO ONE (20:13)
== END 2020-06-29 20:36 | disposition left against medical advice (07) ==
LOC: JER 16:13
DX: F10.20 Alcohol dependence, uncomplicated (principal)
CPT/HCPCS: 36415; 80053; 83735; 84100; 85025; 99283-25

== ENCOUNTER 2020-07-10 19:31 | Inpatient (IN) | payer OTHER ==
[2020-07-10 21:25] VITALS: BMI 21.2
[2020-07-10] MEDS ORDERED: MAGNESIUM CITRATE 300 ML BOTTLE PO PRN (21:30)
[2020-07-10] MEDS ORDERED: BISMUTH SUBSALICYLATE 524 MG/30 ML UD PO PRN (21:30)
[2020-07-10] MEDS ORDERED: MAG HYDROX/AL HYDROX/SIMETH 30 ML UNIT-DOSE CUP PO PRN (21:30)
[2020-07-10] MEDS ORDERED: IBUPROFEN 400 MG TABLET (FP) PO PRN (21:30)
[2020-07-10] MEDS ORDERED: ACETAMINOPHEN 325 MG TABLET (FP) PO PRN (21:30)
[2020-07-10] MEDS ORDERED: ONDANSETRON *ODT* 4 MG TABLET SL PRN (21:30)
[2020-07-10] MEDS ORDERED: MENTHOL/PHENOL 1 EACH UD MM PRN (21:30)
[2020-07-10] MEDS ORDERED: NICOTINE POLACRILEX 2 MG GUM BUC PRN (21:30)
[2020-07-10] MEDS ORDERED: MAGNESIUM HYDROX 2400MG/30ML ORAL SUSPENSION 30 ML CUP PO PRN (21:30)
[2020-07-10] MEDS ORDERED: chlordiazePOXIDE HCL 25 MG CAPSULE PO PRN (21:30)
[2020-07-10] MEDS: THIAMINE HCL 100 MG TABLET (FP) PO SCH (23:02)
[2020-07-10] MEDS: MELATONIN 5 MG TABLETS PO SCH (23:03)
[2020-07-10] MEDS: chlordiazePOXIDE HCL 25 MG CAPSULE PO SCH (23:03)
[2020-07-11] MEDS: chlordiazePOXIDE HCL 25 MG CAPSULE PO SCH ×4 (05:44→22:00)
[2020-07-11] MEDS: NICOTINE 21 MG/24 HOURS TOPICAL PATCH TD SCH (10:19)
[2020-07-11] MEDS: PRENATAL VITAMINS W/ FOLIC ACID TABLET (FP) PO SCH (10:19)
[2020-07-11] MEDS: METHYL SALICYLATE/MENTHOL OINT 30 GM TUBE TP SCH ×2 (11:15→22:00)
[2020-07-11 12:32] LABS: HEMATOCRIT 27.7 % (35.4-49); HEMOGLOBIN 9.3 GM/dL (11.7-16.9); MCH 31.1 pg (25.7-33.7); MCHC 33.4 g/dl (32.0-35.9); MEAN CELL VOLUME 93.2 fl (80-96); MEAN PLT VOLUME 9.6 fl (7.5-11.1); PLATELET COUNT 136 K/MM3 (134-434); RBC 2.97 M/mm3 (4.00-5.60); RDW 15.2 % (11.9-15.9); WHITE BLOOD COUNT 3.9 K/mm3 (4.0-10.0)
[2020-07-11 12:46] LABS: CALCIUM 8.6 mg/dL (8.5-10.1)
[2020-07-11 12:47] LABS: ALBUMIN 3.2 g/dl (3.4-5.0)
[2020-07-11 12:50] LABS: CREATININE 0.8 mg/dL (0.55-1.3)
[2020-07-11 12:51] LABS: BILIRUBIN,TOTAL 0.6 mg/dL (0.2-1)
[2020-07-11 12:52] LABS: TOT PROT 6.1 g/dl (6.4-8.2)
[2020-07-11] MEDS: THIAMINE HCL 100 MG TABLET (FP) PO SCH (21:59)
[2020-07-11] MEDS: MELATONIN 5 MG TABLETS PO SCH (21:59)
[2020-07-11] MEDS: GABAPENTIN 300 MG CAPSULE PO SCH (21:59)
[2020-07-11] MEDS: OLANZapine 10 MG TABLET PO SCH (21:59)
[2020-07-12] MEDS: chlordiazePOXIDE HCL 25 MG CAPSULE PO SCH ×4 (05:57→22:35)
[2020-07-12] MEDS: ACETAMINOPHEN 325 MG TABLET (FP) PO PRN ×2 (05:59→13:45)
[2020-07-12] MEDS: GABAPENTIN 300 MG CAPSULE PO SCH ×2 (10:16→22:35)
[2020-07-12] MEDS: METHYL SALICYLATE/MENTHOL OINT 30 GM TUBE TP SCH ×2 (10:16→22:38)
[2020-07-12] MEDS: ASPIRIN 81 MG CHEWABLE TABLETS PO SCH (10:16)
[2020-07-12] MEDS: PRENATAL VITAMINS W/ FOLIC ACID TABLET (FP) PO SCH (10:17)
[2020-07-12] MEDS: NICOTINE 21 MG/24 HOURS TOPICAL PATCH TD SCH (10:17)
[2020-07-12] MEDS: PANTOPRAZOLE 40 MG TABLET PO SCH (10:17)
[2020-07-12] MEDS: METHOCARBAMOL 500 MG TABLET PO PRN (13:45)
[2020-07-12] MEDS: hydrOXYzine PAMOATE 25 MG CAPSULE (FP) PO PRN (13:45)
[2020-07-12] MEDS: SUVOREXANT 10 MG TABLET PO PRN (22:34)
[2020-07-12] MEDS: THIAMINE HCL 100 MG TABLET (FP) PO SCH (22:35)
[2020-07-12] MEDS: MELATONIN 5 MG TABLETS PO SCH ×2 (22:38→23:01)
[2020-07-12] MEDS: IBUPROFEN 600 MG TABLET (FP) PO PRN (23:00)
[2020-07-12] MEDS: OLANZapine 10 MG TABLET PO SCH (23:24)
[2020-07-13] MEDS ORDERED: chlordiazePOXIDE HCL 10 MG CAPSULE PO PRN
[2020-07-13] MEDS: chlordiazePOXIDE HCL 10 MG CAPSULE PO SCH ×4 (06:08→22:11)
[2020-07-13] MEDS: ACETAMINOPHEN 325 MG TABLET (FP) PO PRN (06:09)
[2020-07-13] MEDS: ASPIRIN 81 MG CHEWABLE TABLETS PO SCH (10:04)
[2020-07-13] MEDS: GABAPENTIN 300 MG CAPSULE PO SCH ×2 (10:05→22:12)
[2020-07-13] MEDS: PANTOPRAZOLE 40 MG TABLET PO SCH (10:05)
[2020-07-13] MEDS: METHYL SALICYLATE/MENTHOL OINT 30 GM TUBE TP SCH ×2 (10:07→23:49)
[2020-07-13] MEDS: PRENATAL VITAMINS W/ FOLIC ACID TABLET (FP) PO SCH (10:07)
[2020-07-13] MEDS: NICOTINE 21 MG/24 HOURS TOPICAL PATCH TD SCH (10:07)
[2020-07-13] MEDS: hydrOXYzine PAMOATE 25 MG CAPSULE (FP) PO PRN ×2 (18:01→22:13)
[2020-07-13] MEDS: OLANZapine 10 MG TABLET PO SCH (22:10)
[2020-07-13] MEDS: THIAMINE HCL 100 MG TABLET (FP) PO SCH (22:10)
[2020-07-13] MEDS: MELATONIN 5 MG TABLETS PO SCH (22:11)
[2020-07-13] MEDS: IBUPROFEN 600 MG TABLET (FP) PO PRN (22:11)
[2020-07-13] MEDS: SUVOREXANT 10 MG TABLET PO PRN (22:12)
[2020-07-14] MEDS: chlordiazePOXIDE HCL 10 MG CAPSULE PO SCH ×2 (06:07→17:43)
[2020-07-14] MEDS: ACETAMINOPHEN 325 MG TABLET (FP) PO PRN (06:08)
[2020-07-14] MEDS: METHOCARBAMOL 500 MG TABLET PO PRN ×2 (09:58→23:13)
[2020-07-14] MEDS: hydrOXYzine PAMOATE 25 MG CAPSULE (FP) PO PRN ×2 (09:58→23:13)
[2020-07-14] MEDS: PANTOPRAZOLE 40 MG TABLET PO SCH (09:58)
[2020-07-14] MEDS: ASPIRIN 81 MG CHEWABLE TABLETS PO SCH (09:58)
[2020-07-14] MEDS: NICOTINE 21 MG/24 HOURS TOPICAL PATCH TD SCH (09:58)
[2020-07-14] MEDS: GABAPENTIN 300 MG CAPSULE PO SCH ×2 (09:59→23:00)
[2020-07-14] MEDS: METHYL SALICYLATE/MENTHOL OINT 30 GM TUBE TP SCH ×2 (09:59→23:01)
[2020-07-14] MEDS: IBUPROFEN 600 MG TABLET (FP) PO PRN (10:00)
[2020-07-14] MEDS: PRENATAL VITAMINS W/ FOLIC ACID TABLET (FP) PO SCH (10:57)
[2020-07-14] MEDS ORDERED: LACTULOSE 20 GM/30 ML UDC (FOR ORAL USE ONLY) PO ONE (15:00)
[2020-07-14] MEDS: MELATONIN 5 MG TABLETS PO SCH (23:00)
[2020-07-14] MEDS: OLANZapine 10 MG TABLET PO SCH (23:00)
[2020-07-14] MEDS: THIAMINE HCL 100 MG TABLET (FP) PO SCH (23:00)
[2020-07-14] MEDS: LACTULOSE 20 GM/30 ML UDC (FOR ORAL USE ONLY) PO SCH (23:01)
[2020-07-14] MEDS: SUVOREXANT 10 MG TABLET PO PRN (23:02)
[2020-07-15] MEDS ORDERED: chlordiazePOXIDE HCL 10 MG CAPSULE PO ONE (05:00)
[2020-07-15 07:05] VITALS: BP 108/64; PULSE 74; TEMP 97.7
[2020-07-15] MEDS: ASPIRIN 81 MG CHEWABLE TABLETS PO SCH (09:20)
[2020-07-15] MEDS: PRENATAL VITAMINS W/ FOLIC ACID TABLET (FP) PO SCH (09:20)
[2020-07-15] MEDS: METHYL SALICYLATE/MENTHOL OINT 30 GM TUBE TP SCH (09:20)
[2020-07-15] MEDS: PANTOPRAZOLE 40 MG TABLET PO SCH (09:20)
[2020-07-15] MEDS: GABAPENTIN 300 MG CAPSULE PO SCH (09:20)
[2020-07-15] MEDS: LACTULOSE 20 GM/30 ML UDC (FOR ORAL USE ONLY) PO SCH (09:20)
[2020-07-15] MEDS: NICOTINE 21 MG/24 HOURS TOPICAL PATCH TD SCH (09:20)
== END 2020-07-15 09:28 | disposition home or self-care (01) | DRG 775 ==
LOC: YASAS 19:31 → Y6N 22:03
PROVIDERS: ADMIT Allergy & Immunology; ATTEND Allergy & Immunology
PROC: HZ2ZZZZ Detoxification Services for Substance Abuse Treatment (ICD-10-PCS; principal; 2020-07-10)
DX: F10.230 Alcohol dependence with withdrawal, uncomplicated (principal); F12.20 Cannabis dependence, uncomplicated; F17.210 Nicotine dependence, cigarettes, uncomplicated; F10.220 Alcohol dependence with intoxication, uncomplicated; F19.282 Other psychoactive substance dependence with psychoactive substance-induced sleep disorder; F10.282 Alcohol dependence with alcohol-induced sleep disorder; F25.9 Schizoaffective disorder, unspecified; F31.9 Bipolar disorder, unspecified; D50.9 Iron deficiency anemia, unspecified; E11.9 Type 2 diabetes mellitus without complications; H91.92 Unspecified hearing loss, left ear; J44.9 Chronic obstructive pulmonary disease, unspecified; K59.00 Constipation, unspecified; M17.0 Bilateral primary osteoarthritis of knee; M54.89 Other dorsalgia; M10.9 Gout, unspecified; R74.8 Abnormal levels of other serum enzymes; R76.11 Nonspecific reaction to tuberculin skin test without active tuberculosis
CPT/HCPCS: 36415; 71046-TC-FY; 80053; 82140; 82962; 85027; 86780; C9803; U0003

== ENCOUNTER 2020-08-01 19:42 | Inpatient (IN) | payer OTHER ==
[2020-08-01] MEDS ORDERED: ACETAMINOPHEN 325 MG TABLET (FP) PO PRN (21:18)
[2020-08-01] MEDS ORDERED: LORazepam 1 MG TABLET PO PRN (21:18)
[2020-08-01] MEDS ORDERED: DICYCLOMINE HCL 10 MG CAPSULE PO PRN (21:18)
[2020-08-01] MEDS ORDERED: guaiFENesin 200 MG/10 ML 10 ML UNIT-DOSE CUPS PO PRN (21:18)
[2020-08-01] MEDS ORDERED: MENTHOL/PHENOL 1 EACH UD MM PRN (21:18)
[2020-08-01] MEDS ORDERED: ONDANSETRON *ODT* 4 MG TABLET SL PRN (21:18)
[2020-08-01] MEDS ORDERED: P-EPHED 60MG/TRIPROLIDI 2.5MG TABLET PO PRN (21:18)
[2020-08-01] MEDS ORDERED: IBUPROFEN 400 MG TABLET (FP) PO PRN (21:18)
[2020-08-01] MEDS ORDERED: BISMUTH SUBSALICYLATE 524 MG/30 ML UD PO PRN (21:18)
[2020-08-01] MEDS ORDERED: MAG HYDROX/AL HYDROX/SIMETH 30 ML UNIT-DOSE CUP PO PRN (21:18)
[2020-08-01] MEDS ORDERED: MAGNESIUM CITRATE 300 ML BOTTLE PO PRN (21:18)
[2020-08-01] MEDS ORDERED: NICOTINE POLACRILEX 2 MG GUM BUC PRN (21:18)
[2020-08-01] MEDS ORDERED: MAGNESIUM HYDROX 2400MG/30ML ORAL SUSPENSION 30 ML CUP PO PRN (21:18)
[2020-08-01 23:12] VITALS: BMI 24.0
[2020-08-01] MEDS: LORazepam 2 MG TABLET PO SCH (23:37)
[2020-08-01] MEDS: THIAMINE HCL 100 MG TABLET (FP) PO SCH (23:37)
[2020-08-01] MEDS: MELATONIN 5 MG TABLETS PO SCH (23:38)
[2020-08-02] MEDS: LORazepam 2 MG TABLET PO SCH ×4 (05:11→22:08)
[2020-08-02] MEDS: ACETAMINOPHEN 325 MG TABLET (FP) PO PRN (09:24)
[2020-08-02] MEDS: PRENATAL VITAMINS W/ FOLIC ACID TABLET (FP) PO SCH (10:01)
[2020-08-02] MEDS: NICOTINE 21 MG/24 HOURS TOPICAL PATCH TD SCH (10:02)
[2020-08-02 13:13] LABS: URINE APPEARANCE CLEAR; URINE BILIRUBIN NEGATIVE (NEGATIVE); URINE COLOR YELLOW; URINE GLUCOSE (UA) NEGATIVE (NEGATIVE); URINE KETONE NEGATIVE (NEGATIVE); URINE LEUK ESTERASE NEGATIVE (NEGATIVE); URINE NITRITE NEGATIVE (NEGATIVE); URINE PROTEIN NEGATIVE (NEGATIVE)
[2020-08-02 13:14] LABS: POTASSIUM 4.1 mmol/L (3.5-5.1)
[2020-08-02 13:19] LABS: HEMATOCRIT 30.8 % (35.4-49); HEMOGLOBIN 10.5 GM/dL (11.7-16.9); MCH 31.7 pg (25.7-33.7); MEAN CELL VOLUME 93.3 fl (80-96); PLATELET COUNT 197 K/MM3 (134-434); RDW 15.5 % (11.9-15.9); WHITE BLOOD COUNT 2.4 K/mm3 (4.0-10.0)
[2020-08-02 13:27] LABS: CALCIUM 8.8 mg/dL (8.5-10.1)
[2020-08-02 13:28] LABS: ALBUMIN 3.6 g/dl (3.4-5.0); BLOOD UREA NITROGEN 13.3 mg/dL (7-18)
[2020-08-02 13:31] LABS: CREATININE 0.7 mg/dL (0.55-1.3)
[2020-08-02 13:33] LABS: BILIRUBIN,TOTAL 0.8 mg/dL (0.2-1); TOT PROT 7.3 g/dl (6.4-8.2)
[2020-08-02] MEDS: OLANZapine 5 MG TABLET PO SCH (22:08)
[2020-08-02] MEDS: THIAMINE HCL 100 MG TABLET (FP) PO SCH (22:08)
[2020-08-02] MEDS: MELATONIN 5 MG TABLETS PO SCH (22:08)
[2020-08-02] MEDS: METHOCARBAMOL 500 MG TABLET PO PRN (22:10)
[2020-08-03] MEDS: LORazepam 1 MG TABLET PO SCH ×4 (05:04→22:15)
[2020-08-03] MEDS: PRENATAL VITAMINS W/ FOLIC ACID TABLET (FP) PO SCH (10:01)
[2020-08-03] MEDS: NICOTINE 21 MG/24 HOURS TOPICAL PATCH TD SCH (10:02)
[2020-08-03] MEDS: METHYL SALICYLATE/MENTHOL OINT 30 GM TUBE TP SCH ×2 (13:18→21:54)
[2020-08-03] MEDS: OLANZapine 5 MG TABLET PO SCH (21:54)
[2020-08-03] MEDS: THIAMINE HCL 100 MG TABLET (FP) PO SCH (21:54)
[2020-08-03] MEDS: MELATONIN 5 MG TABLETS PO SCH (21:54)
[2020-08-03] MEDS: ACETAMINOPHEN 325 MG TABLET (FP) PO PRN (21:54)
[2020-08-04] MEDS ORDERED: LORazepam 0.5 MG TABLET PO PRN
[2020-08-04] MEDS: LORazepam 0.5 MG TABLET PO SCH ×4 (05:19→22:08)
[2020-08-04] MEDS: PRENATAL VITAMINS W/ FOLIC ACID TABLET (FP) PO SCH (10:21)
[2020-08-04] MEDS: ACETAMINOPHEN 325 MG TABLET (FP) PO PRN (10:22)
[2020-08-04] MEDS: METHYL SALICYLATE/MENTHOL OINT 30 GM TUBE TP SCH ×2 (10:23→22:07)
[2020-08-04] MEDS: NICOTINE 21 MG/24 HOURS TOPICAL PATCH TD SCH (10:23)
[2020-08-04] MEDS ORDERED: LIDOCAINE 5% TOPICAL PATCH TP ONE (10:45)
[2020-08-04] MEDS: FAMOTIDINE 20 MG TABLET PO SCH (17:40)
[2020-08-04] MEDS: ASPIRIN 81 MG CHEWABLE TABLETS PO SCH (17:40)
[2020-08-04] MEDS ORDERED: LIDOCAINE PATCH REMOVAL MC ONE (22:00)
[2020-08-04] MEDS: MELATONIN 5 MG TABLETS PO SCH (22:08)
[2020-08-04] MEDS: OLANZapine 5 MG TABLET PO SCH (22:08)
[2020-08-04] MEDS: THIAMINE HCL 100 MG TABLET (FP) PO SCH (22:08)
[2020-08-04] MEDS: METHOCARBAMOL 500 MG TABLET PO PRN (22:09)
[2020-08-05] MEDS ORDERED: LORazepam 0.5 MG TABLET PO ONE (05:00)
[2020-08-05] MEDS: ACETAMINOPHEN 325 MG TABLET (FP) PO PRN (05:30)
[2020-08-05 09:15] VITALS: BP 153/80; PULSE 76; TEMP 97.8
[2020-08-05] MEDS: FAMOTIDINE 20 MG TABLET PO SCH (10:06)
[2020-08-05] MEDS: ASPIRIN 81 MG CHEWABLE TABLETS PO SCH (10:06)
[2020-08-05] MEDS: PRENATAL VITAMINS W/ FOLIC ACID TABLET (FP) PO SCH (10:06)
[2020-08-05] MEDS: METHYL SALICYLATE/MENTHOL OINT 30 GM TUBE TP SCH (10:07)
[2020-08-05] MEDS: NICOTINE 21 MG/24 HOURS TOPICAL PATCH TD SCH (10:07)
== END 2020-08-05 12:13 | disposition other institution (70) | DRG 773 ==
LOC: YASAS 19:42 → Y3N 22:44
PROVIDERS: ADMIT Allergy & Immunology; ATTEND Allergy & Immunology
PROC: HZ2ZZZZ Detoxification Services for Substance Abuse Treatment (ICD-10-PCS; principal; 2020-08-01)
DX: F10.230 Alcohol dependence with withdrawal, uncomplicated (principal); F11.20 Opioid dependence, uncomplicated; F10.220 Alcohol dependence with intoxication, uncomplicated; F12.20 Cannabis dependence, uncomplicated; F17.210 Nicotine dependence, cigarettes, uncomplicated; F19.280 Other psychoactive substance dependence with psychoactive substance-induced anxiety disorder; F19.282 Other psychoactive substance dependence with psychoactive substance-induced sleep disorder; F19.24 Other psychoactive substance dependence with psychoactive substance-induced mood disorder; F25.9 Schizoaffective disorder, unspecified; F32.9 Major depressive disorder, single episode, unspecified; J44.9 Chronic obstructive pulmonary disease, unspecified; H91.92 Unspecified hearing loss, left ear; M17.0 Bilateral primary osteoarthritis of knee; M10.9 Gout, unspecified; R73.03 Prediabetes; R76.11 Nonspecific reaction to tuberculin skin test without active tuberculosis; D50.9 Iron deficiency anemia, unspecified; Z86.11 Personal history of tuberculosis; Z91.19 Patient's noncompliance with other medical treatment and regimen; Z98.890 Other specified postprocedural states
CPT/HCPCS: 36415; 80053; 81003; 82962; 85027; 86780; C9803; U0003

== ENCOUNTER 2020-08-05 12:30 | Inpatient (IN) | payer OTHER ==
[2020-08-05] MEDS ORDERED: guaiFENesin 200 MG/10 ML 10 ML UNIT-DOSE CUPS PO PRN (13:52)
[2020-08-05] MEDS ORDERED: NICOTINE POLACRILEX 2 MG GUM BUC PRN (13:52)
[2020-08-05] MEDS ORDERED: P-EPHED 60MG/TRIPROLIDI 2.5MG TABLET PO PRN (13:52)
[2020-08-05] MEDS ORDERED: MAGNESIUM HYDROX 2400MG/30ML ORAL SUSPENSION 30 ML CUP PO PRN (13:52)
[2020-08-05] MEDS ORDERED: LOPERAMIDE HCL 2 MG CAPSULE PO PRN (13:52)
[2020-08-05] MEDS ORDERED: MAGNESIUM CITRATE 300 ML BOTTLE PO PRN (13:52)
[2020-08-05] MEDS ORDERED: MAG HYDROX/AL HYDROX/SIMETH 30 ML UNIT-DOSE CUP PO PRN (13:52)
[2020-08-05] MEDS ORDERED: MENTHOL/PHENOL 1 EACH UD MM PRN (13:52)
[2020-08-05] MEDS ORDERED: IBUPROFEN 400 MG TABLET (FP) PO PRN (13:52)
[2020-08-05] MEDS: FERROUS SO4 325 MG TABLET (FP) PO SCH (18:22)
[2020-08-05] MEDS: hydrOXYzine PAMOATE 25 MG CAPSULE (FP) PO PRN ×2 (18:22→21:11)
[2020-08-05] MEDS: METHOCARBAMOL 500 MG TABLET PO PRN (21:11)
[2020-08-05] MEDS: OLANZapine 10 MG TABLET PO SCH (21:11)
[2020-08-05] MEDS: LIDOCAINE PATCH REMOVAL MC SCH (21:11)
[2020-08-05] MEDS: THIAMINE HCL 100 MG TABLET (FP) PO SCH (21:11)
[2020-08-05] MEDS: SUVOREXANT 5 MG TABLET PO PRN (21:12)
[2020-08-05] MEDS ORDERED: MELATONIN 5 MG TABLETS PO SCH (22:00)
[2020-08-06] MEDS: FERROUS SO4 325 MG TABLET (FP) PO SCH ×2 (07:19→17:11)
[2020-08-06] MEDS: ASPIRIN 81 MG CHEWABLE TABLETS PO SCH (09:37)
[2020-08-06] MEDS: NICOTINE 7 MG/24 HOURS TOPICAL PATCH TD SCH (09:37)
[2020-08-06] MEDS: PANTOPRAZOLE 40 MG TABLET PO SCH (09:37)
[2020-08-06] MEDS: PRENATAL VITAMINS W/ FOLIC ACID TABLET (FP) PO SCH (09:37)
[2020-08-06] MEDS: LIDOCAINE 5% TOPICAL PATCH TP SCH (09:37)
[2020-08-06] MEDS: ACETAMINOPHEN 325 MG TABLET (FP) PO PRN (09:39)
[2020-08-06] MEDS: LIDOCAINE PATCH REMOVAL MC SCH (21:56)
[2020-08-06] MEDS: THIAMINE HCL 100 MG TABLET (FP) PO SCH (21:57)
[2020-08-06] MEDS: OLANZapine 10 MG TABLET PO SCH (21:57)
[2020-08-06] MEDS: hydrOXYzine PAMOATE 25 MG CAPSULE (FP) PO PRN (21:58)
[2020-08-06] MEDS: METHOCARBAMOL 500 MG TABLET PO PRN (21:58)
[2020-08-07] MEDS: FERROUS SO4 325 MG TABLET (FP) PO SCH ×2 (07:05→17:47)
[2020-08-07] MEDS: PRENATAL VITAMINS W/ FOLIC ACID TABLET (FP) PO SCH (09:41)
[2020-08-07] MEDS: PANTOPRAZOLE 40 MG TABLET PO SCH (09:41)
[2020-08-07] MEDS: ASPIRIN 81 MG CHEWABLE TABLETS PO SCH (09:41)
[2020-08-07] MEDS: LIDOCAINE 5% TOPICAL PATCH TP SCH (09:42)
[2020-08-07] MEDS: NICOTINE 7 MG/24 HOURS TOPICAL PATCH TD SCH (09:42)
[2020-08-07] MEDS: METHYL SALICYLATE/MENTHOL OINT 30 GM TUBE TP SCH ×2 (09:42→21:14)
[2020-08-07] MEDS: ACETAMINOPHEN 325 MG TABLET (FP) PO PRN (09:44)
[2020-08-07] MEDS: METHOCARBAMOL 500 MG TABLET PO PRN (09:44)
[2020-08-07] MEDS: hydrOXYzine PAMOATE 25 MG CAPSULE (FP) PO PRN (21:14)
[2020-08-07] MEDS: OLANZapine 10 MG TABLET PO SCH (21:14)
[2020-08-07] MEDS: THIAMINE HCL 100 MG TABLET (FP) PO SCH (21:15)
[2020-08-07] MEDS: SUVOREXANT 5 MG TABLET PO PRN (21:15)
[2020-08-07] MEDS: LIDOCAINE PATCH REMOVAL MC SCH (21:15)
[2020-08-08] MEDS: FERROUS SO4 325 MG TABLET (FP) PO SCH ×2 (07:17→17:50)
[2020-08-08] MEDS: NICOTINE 7 MG/24 HOURS TOPICAL PATCH TD SCH (09:36)
[2020-08-08] MEDS: LIDOCAINE 5% TOPICAL PATCH TP SCH (09:36)
[2020-08-08] MEDS: PRENATAL VITAMINS W/ FOLIC ACID TABLET (FP) PO SCH (09:36)
[2020-08-08] MEDS: ASPIRIN 81 MG CHEWABLE TABLETS PO SCH (09:36)
[2020-08-08] MEDS: PANTOPRAZOLE 40 MG TABLET PO SCH (09:36)
[2020-08-08] MEDS: METHOCARBAMOL 500 MG TABLET PO PRN (09:36)
[2020-08-08] MEDS: METHYL SALICYLATE/MENTHOL OINT 30 GM TUBE TP SCH ×2 (09:37→21:18)
[2020-08-08] MEDS: OLANZapine 10 MG TABLET PO SCH (21:17)
[2020-08-08] MEDS: SUVOREXANT 5 MG TABLET PO PRN (21:18)
[2020-08-08] MEDS: LIDOCAINE PATCH REMOVAL MC SCH (21:19)
[2020-08-08] MEDS: hydrOXYzine PAMOATE 25 MG CAPSULE (FP) PO PRN (21:19)
[2020-08-08] MEDS: THIAMINE HCL 100 MG TABLET (FP) PO SCH (21:56)
[2020-08-09] MEDS: hydrOXYzine PAMOATE 25 MG CAPSULE (FP) PO PRN (06:04)
[2020-08-09] MEDS: FERROUS SO4 325 MG TABLET (FP) PO SCH ×2 (07:10→17:53)
[2020-08-09] MEDS: PRENATAL VITAMINS W/ FOLIC ACID TABLET (FP) PO SCH (10:04)
[2020-08-09] MEDS: NICOTINE 7 MG/24 HOURS TOPICAL PATCH TD SCH (10:05)
[2020-08-09] MEDS: PANTOPRAZOLE 40 MG TABLET PO SCH (10:05)
[2020-08-09] MEDS: METHYL SALICYLATE/MENTHOL OINT 30 GM TUBE TP SCH ×2 (10:05→22:10)
[2020-08-09] MEDS: LIDOCAINE 5% TOPICAL PATCH TP SCH (10:05)
[2020-08-09] MEDS: ASPIRIN 81 MG CHEWABLE TABLETS PO SCH (10:05)
[2020-08-09] MEDS: THIAMINE HCL 100 MG TABLET (FP) PO SCH (21:38)
[2020-08-09] MEDS: OLANZapine 10 MG TABLET PO SCH (21:38)
[2020-08-09] MEDS: SUVOREXANT 5 MG TABLET PO PRN (21:38)
[2020-08-09] MEDS: LIDOCAINE PATCH REMOVAL MC SCH (21:38)
[2020-08-10] MEDS: FERROUS SO4 325 MG TABLET (FP) PO SCH ×2 (07:10→17:39)
[2020-08-10] MEDS: PANTOPRAZOLE 40 MG TABLET PO SCH (10:29)
[2020-08-10] MEDS: NICOTINE 7 MG/24 HOURS TOPICAL PATCH TD SCH (10:29)
[2020-08-10] MEDS: METHYL SALICYLATE/MENTHOL OINT 30 GM TUBE TP SCH ×2 (10:29→21:21)
[2020-08-10] MEDS: PRENATAL VITAMINS W/ FOLIC ACID TABLET (FP) PO SCH (10:29)
[2020-08-10] MEDS: ACETAMINOPHEN 325 MG TABLET (FP) PO PRN (10:30)
[2020-08-10] MEDS: ASPIRIN 81 MG CHEWABLE TABLETS PO SCH (10:30)
[2020-08-10] MEDS: LIDOCAINE 5% TOPICAL PATCH TP SCH (10:32)
[2020-08-10] MEDS: METHOCARBAMOL 500 MG TABLET PO PRN (13:15)
[2020-08-10] MEDS: SUVOREXANT 5 MG TABLET PO PRN (21:20)
[2020-08-10] MEDS: THIAMINE HCL 100 MG TABLET (FP) PO SCH (21:21)
[2020-08-10] MEDS: OLANZapine 10 MG TABLET PO SCH (21:21)
[2020-08-10] MEDS: LIDOCAINE PATCH REMOVAL MC SCH (21:21)
[2020-08-11] MEDS: FERROUS SO4 325 MG TABLET (FP) PO SCH ×2 (07:30→17:27)
[2020-08-11] MEDS: PANTOPRAZOLE 40 MG TABLET PO SCH (09:32)
[2020-08-11] MEDS: PRENATAL VITAMINS W/ FOLIC ACID TABLET (FP) PO SCH (09:32)
[2020-08-11] MEDS: ASPIRIN 81 MG CHEWABLE TABLETS PO SCH (09:32)
[2020-08-11] MEDS: LIDOCAINE 5% TOPICAL PATCH TP SCH (09:33)
[2020-08-11] MEDS: NICOTINE 7 MG/24 HOURS TOPICAL PATCH TD SCH (09:33)
[2020-08-11] MEDS: METHYL SALICYLATE/MENTHOL OINT 30 GM TUBE TP SCH ×2 (09:33→21:59)
[2020-08-11] MEDS: hydrOXYzine PAMOATE 25 MG CAPSULE (FP) PO PRN ×2 (09:34→21:12)
[2020-08-11] MEDS: THIAMINE HCL 100 MG TABLET (FP) PO SCH (21:12)
[2020-08-11] MEDS: OLANZapine 10 MG TABLET PO SCH (21:12)
[2020-08-11] MEDS: SUVOREXANT 5 MG TABLET PO PRN (21:12)
[2020-08-11] MEDS: METHOCARBAMOL 500 MG TABLET PO PRN (21:12)
[2020-08-11] MEDS: LIDOCAINE PATCH REMOVAL MC SCH (22:00)
[2020-08-12] MEDS: FERROUS SO4 325 MG TABLET (FP) PO SCH ×2 (07:03→17:29)
[2020-08-12] MEDS: PRENATAL VITAMINS W/ FOLIC ACID TABLET (FP) PO SCH (09:53)
[2020-08-12] MEDS: LIDOCAINE 5% TOPICAL PATCH TP SCH (09:53)
[2020-08-12] MEDS: hydrOXYzine PAMOATE 25 MG CAPSULE (FP) PO PRN ×2 (09:54→21:22)
[2020-08-12] MEDS: METHYL SALICYLATE/MENTHOL OINT 30 GM TUBE TP SCH ×2 (09:54→21:23)
[2020-08-12] MEDS: PANTOPRAZOLE 40 MG TABLET PO SCH (09:54)
[2020-08-12] MEDS: NICOTINE 7 MG/24 HOURS TOPICAL PATCH TD SCH (09:54)
[2020-08-12] MEDS: ASPIRIN 81 MG CHEWABLE TABLETS PO SCH (09:54)
[2020-08-12] MEDS: THIAMINE HCL 100 MG TABLET (FP) PO SCH (21:22)
[2020-08-12] MEDS: OLANZapine 10 MG TABLET PO SCH (21:22)
[2020-08-12] MEDS: METHOCARBAMOL 500 MG TABLET PO PRN (21:22)
[2020-08-12] MEDS: SUVOREXANT 5 MG TABLET PO PRN (21:23)
[2020-08-12] MEDS: LIDOCAINE PATCH REMOVAL MC SCH (21:24)
[2020-08-13] MEDS: FERROUS SO4 325 MG TABLET (FP) PO SCH ×2 (07:23→17:38)
[2020-08-13] MEDS: LIDOCAINE 5% TOPICAL PATCH TP SCH (09:49)
[2020-08-13] MEDS: PRENATAL VITAMINS W/ FOLIC ACID TABLET (FP) PO SCH (09:49)
[2020-08-13] MEDS: ASPIRIN 81 MG CHEWABLE TABLETS PO SCH (09:50)
[2020-08-13] MEDS: PANTOPRAZOLE 40 MG TABLET PO SCH (09:50)
[2020-08-13] MEDS: NICOTINE 7 MG/24 HOURS TOPICAL PATCH TD SCH (09:50)
[2020-08-13] MEDS: METHYL SALICYLATE/MENTHOL OINT 30 GM TUBE TP SCH ×2 (09:50→22:02)
[2020-08-13] MEDS: hydrOXYzine PAMOATE 25 MG CAPSULE (FP) PO PRN ×2 (09:52→21:15)
[2020-08-13] MEDS: METHOCARBAMOL 500 MG TABLET PO PRN ×2 (09:52→21:15)
[2020-08-13] MEDS: ACETAMINOPHEN 325 MG TABLET (FP) PO PRN (09:52)
[2020-08-13] MEDS: OLANZapine 10 MG TABLET PO SCH (21:15)
[2020-08-13] MEDS: THIAMINE HCL 100 MG TABLET (FP) PO SCH (21:15)
[2020-08-13] MEDS: SUVOREXANT 5 MG TABLET PO PRN (21:16)
[2020-08-13] MEDS: LIDOCAINE PATCH REMOVAL MC SCH (22:02)
[2020-08-14] MEDS: FERROUS SO4 325 MG TABLET (FP) PO SCH ×2 (07:19→18:39)
[2020-08-14] MEDS ORDERED: PT OWN MED DRAWER 7, Y5N ONE (09:33)
[2020-08-14] MEDS: LIDOCAINE 5% TOPICAL PATCH TP SCH (09:56)
[2020-08-14] MEDS: ASPIRIN 81 MG CHEWABLE TABLETS PO SCH (09:57)
[2020-08-14] MEDS: PANTOPRAZOLE 40 MG TABLET PO SCH (09:57)
[2020-08-14] MEDS: METHOCARBAMOL 500 MG TABLET PO PRN ×2 (09:57→21:14)
[2020-08-14] MEDS: PRENATAL VITAMINS W/ FOLIC ACID TABLET (FP) PO SCH (09:57)
[2020-08-14] MEDS: METHYL SALICYLATE/MENTHOL OINT 30 GM TUBE TP SCH ×2 (09:57→21:35)
[2020-08-14] MEDS: NICOTINE 7 MG/24 HOURS TOPICAL PATCH TD SCH (09:58)
[2020-08-14] MEDS: SUVOREXANT 5 MG TABLET PO PRN (21:14)
[2020-08-14] MEDS: THIAMINE HCL 100 MG TABLET (FP) PO SCH (21:14)
[2020-08-14] MEDS: hydrOXYzine PAMOATE 25 MG CAPSULE (FP) PO PRN (21:14)
[2020-08-14] MEDS: OLANZapine 10 MG TABLET PO SCH (21:14)
[2020-08-14] MEDS: LIDOCAINE PATCH REMOVAL MC SCH (21:15)
[2020-08-15] MEDS: FERROUS SO4 325 MG TABLET (FP) PO SCH ×2 (07:14→17:21)
[2020-08-15] MEDS: PRENATAL VITAMINS W/ FOLIC ACID TABLET (FP) PO SCH (09:42)
[2020-08-15] MEDS: PANTOPRAZOLE 40 MG TABLET PO SCH (09:43)
[2020-08-15] MEDS: NICOTINE 7 MG/24 HOURS TOPICAL PATCH TD SCH (09:43)
[2020-08-15] MEDS: LIDOCAINE 5% TOPICAL PATCH TP SCH (09:43)
[2020-08-15] MEDS: METHYL SALICYLATE/MENTHOL OINT 30 GM TUBE TP SCH ×2 (09:43→21:12)
[2020-08-15] MEDS: ASPIRIN 81 MG CHEWABLE TABLETS PO SCH (09:43)
[2020-08-15] MEDS: hydrOXYzine PAMOATE 25 MG CAPSULE (FP) PO PRN (09:44)
[2020-08-15] MEDS: METHOCARBAMOL 500 MG TABLET PO PRN (09:45)
[2020-08-15] MEDS: THIAMINE HCL 100 MG TABLET (FP) PO SCH (21:11)
[2020-08-15] MEDS: LIDOCAINE PATCH REMOVAL MC SCH (21:12)
[2020-08-15] MEDS: OLANZapine 10 MG TABLET PO SCH (21:13)
[2020-08-15] MEDS: SUVOREXANT 5 MG TABLET PO PRN (21:13)
[2020-08-16] MEDS: FERROUS SO4 325 MG TABLET (FP) PO SCH ×2 (07:11→17:32)
[2020-08-16] MEDS: PRENATAL VITAMINS W/ FOLIC ACID TABLET (FP) PO SCH (09:54)
[2020-08-16] MEDS: LIDOCAINE 5% TOPICAL PATCH TP SCH (09:54)
[2020-08-16] MEDS: ASPIRIN 81 MG CHEWABLE TABLETS PO SCH (09:54)
[2020-08-16] MEDS: PANTOPRAZOLE 40 MG TABLET PO SCH (09:54)
[2020-08-16] MEDS: ACETAMINOPHEN 325 MG TABLET (FP) PO PRN (09:55)
[2020-08-16] MEDS: METHYL SALICYLATE/MENTHOL OINT 30 GM TUBE TP SCH ×2 (10:06→21:22)
[2020-08-16] MEDS: NICOTINE 7 MG/24 HOURS TOPICAL PATCH TD SCH (10:07)
[2020-08-16] MEDS: METHOCARBAMOL 500 MG TABLET PO PRN (21:21)
[2020-08-16] MEDS: hydrOXYzine PAMOATE 25 MG CAPSULE (FP) PO PRN (21:21)
[2020-08-16] MEDS: THIAMINE HCL 100 MG TABLET (FP) PO SCH (21:21)
[2020-08-16] MEDS: OLANZapine 10 MG TABLET PO SCH (21:21)
[2020-08-16] MEDS: LIDOCAINE PATCH REMOVAL MC SCH (21:23)
[2020-08-17] MEDS: FERROUS SO4 325 MG TABLET (FP) PO SCH ×2 (08:33→18:15)
[2020-08-17] MEDS: ASPIRIN 81 MG CHEWABLE TABLETS PO SCH (09:45)
[2020-08-17] MEDS: PANTOPRAZOLE 40 MG TABLET PO SCH (09:45)
[2020-08-17] MEDS: hydrOXYzine PAMOATE 25 MG CAPSULE (FP) PO PRN ×2 (09:45→21:26)
[2020-08-17] MEDS: METHYL SALICYLATE/MENTHOL OINT 30 GM TUBE TP SCH ×2 (09:45→21:40)
[2020-08-17] MEDS: LIDOCAINE 5% TOPICAL PATCH TP SCH (09:45)
[2020-08-17] MEDS: NICOTINE 7 MG/24 HOURS TOPICAL PATCH TD SCH (09:46)
[2020-08-17] MEDS: PRENATAL VITAMINS W/ FOLIC ACID TABLET (FP) PO SCH (09:46)
[2020-08-17] MEDS: METHOCARBAMOL 500 MG TABLET PO PRN (21:25)
[2020-08-17] MEDS: THIAMINE HCL 100 MG TABLET (FP) PO SCH (21:26)
[2020-08-17] MEDS: OLANZapine 10 MG TABLET PO SCH (21:26)
[2020-08-17] MEDS: ACETAMINOPHEN 325 MG TABLET (FP) PO PRN (21:27)
[2020-08-17] MEDS: SUVOREXANT 5 MG TABLET PO PRN (21:27)
[2020-08-17] MEDS: LIDOCAINE PATCH REMOVAL MC SCH (21:40)
[2020-08-18] MEDS ORDERED: PT OWN MED DRAWER 7, Y5N ONE (03:16)
[2020-08-18] MEDS: FERROUS SO4 325 MG TABLET (FP) PO SCH ×2 (08:20→17:31)
[2020-08-18] MEDS: PRENATAL VITAMINS W/ FOLIC ACID TABLET (FP) PO SCH (09:29)
[2020-08-18] MEDS: ASPIRIN 81 MG CHEWABLE TABLETS PO SCH (09:30)
[2020-08-18] MEDS: METHYL SALICYLATE/MENTHOL OINT 30 GM TUBE TP SCH ×2 (09:30→21:15)
[2020-08-18] MEDS: LIDOCAINE 5% TOPICAL PATCH TP SCH (09:30)
[2020-08-18] MEDS: NICOTINE 7 MG/24 HOURS TOPICAL PATCH TD SCH (09:31)
[2020-08-18] MEDS: PANTOPRAZOLE 40 MG TABLET PO SCH (09:31)
[2020-08-18] MEDS: OLANZapine 10 MG TABLET PO SCH (21:16)
[2020-08-18] MEDS: THIAMINE HCL 100 MG TABLET (FP) PO SCH (21:16)
[2020-08-18] MEDS: LIDOCAINE PATCH REMOVAL MC SCH (21:16)
[2020-08-18] MEDS: hydrOXYzine PAMOATE 25 MG CAPSULE (FP) PO PRN (21:17)
[2020-08-19] MEDS: FERROUS SO4 325 MG TABLET (FP) PO SCH ×2 (07:12→17:00)
[2020-08-19] MEDS: PRENATAL VITAMINS W/ FOLIC ACID TABLET (FP) PO SCH (09:33)
[2020-08-19] MEDS: LIDOCAINE 5% TOPICAL PATCH TP SCH (09:34)
[2020-08-19] MEDS: NICOTINE 7 MG/24 HOURS TOPICAL PATCH TD SCH (09:34)
[2020-08-19] MEDS: hydrOXYzine PAMOATE 25 MG CAPSULE (FP) PO PRN ×2 (09:34→21:08)
[2020-08-19] MEDS: ASPIRIN 81 MG CHEWABLE TABLETS PO SCH (09:34)
[2020-08-19] MEDS: PANTOPRAZOLE 40 MG TABLET PO SCH (09:34)
[2020-08-19] MEDS: METHYL SALICYLATE/MENTHOL OINT 30 GM TUBE TP SCH ×2 (09:34→21:08)
[2020-08-19] MEDS: OLANZapine 10 MG TABLET PO SCH (21:08)
[2020-08-19] MEDS: LIDOCAINE PATCH REMOVAL MC SCH (21:08)
[2020-08-19] MEDS: THIAMINE HCL 100 MG TABLET (FP) PO SCH (21:08)
[2020-08-20 06:53] VITALS: TEMP 97.3
[2020-08-20] MEDS: FERROUS SO4 325 MG TABLET (FP) PO SCH ×2 (07:03→17:06)
[2020-08-20] MEDS: LIDOCAINE 5% TOPICAL PATCH TP SCH (09:49)
[2020-08-20] MEDS: PRENATAL VITAMINS W/ FOLIC ACID TABLET (FP) PO SCH (09:50)
[2020-08-20] MEDS: ASPIRIN 81 MG CHEWABLE TABLETS PO SCH (09:50)
[2020-08-20] MEDS: ACETAMINOPHEN 325 MG TABLET (FP) PO PRN (09:50)
[2020-08-20] MEDS: hydrOXYzine PAMOATE 25 MG CAPSULE (FP) PO PRN ×2 (09:50→21:43)
[2020-08-20] MEDS: PANTOPRAZOLE 40 MG TABLET PO SCH (09:50)
[2020-08-20] MEDS: NICOTINE 7 MG/24 HOURS TOPICAL PATCH TD SCH (09:51)
[2020-08-20] MEDS: METHYL SALICYLATE/MENTHOL OINT 30 GM TUBE TP SCH ×2 (09:51→22:03)
[2020-08-20] MEDS: OLANZapine 10 MG TABLET PO SCH (21:43)
[2020-08-20] MEDS: THIAMINE HCL 100 MG TABLET (FP) PO SCH (21:43)
[2020-08-20] MEDS: LIDOCAINE PATCH REMOVAL MC SCH (22:04)
[2020-08-21] MEDS: FERROUS SO4 325 MG TABLET (FP) PO SCH (07:15)
[2020-08-21] MEDS ORDERED: amLODIPine BESYLATE 5 MG TABLET (FP) PO ONE (09:18)
[2020-08-21] MEDS: PRENATAL VITAMINS W/ FOLIC ACID TABLET (FP) PO SCH (09:36)
[2020-08-21] MEDS: METHYL SALICYLATE/MENTHOL OINT 30 GM TUBE TP SCH (09:36)
[2020-08-21] MEDS: ASPIRIN 81 MG CHEWABLE TABLETS PO SCH (09:36)
[2020-08-21] MEDS: NICOTINE 7 MG/24 HOURS TOPICAL PATCH TD SCH (09:36)
[2020-08-21] MEDS: PANTOPRAZOLE 40 MG TABLET PO SCH (09:36)
[2020-08-21] MEDS: LIDOCAINE 5% TOPICAL PATCH TP SCH (09:37)
[2020-08-21 10:25] VITALS: BP 146/81; PULSE 78
== END 2020-08-21 10:25 | disposition home or self-care (01) | DRG 772 ==
LOC: YASAS 12:30 → Y5N 12:31
PROVIDERS: ADMIT Allergy & Immunology; ATTEND Allergy & Immunology
PROC: HZ42ZZZ Group Counseling for Substance Abuse Treatment, Cognitive-Behavioral (ICD-10-PCS; principal; 2020-08-05)
DX: F10.20 Alcohol dependence, uncomplicated (principal); F12.20 Cannabis dependence, uncomplicated; F17.210 Nicotine dependence, cigarettes, uncomplicated; F25.9 Schizoaffective disorder, unspecified; F31.9 Bipolar disorder, unspecified; G47.00 Insomnia, unspecified; J44.9 Chronic obstructive pulmonary disease, unspecified; H91.92 Unspecified hearing loss, left ear; M12.9 Arthropathy, unspecified; M10.9 Gout, unspecified; R73.03 Prediabetes; Z86.11 Personal history of tuberculosis; Z98.890 Other specified postprocedural states
CPT/HCPCS: 82962; 83036; C9803; U0003

== ENCOUNTER 2020-09-23 14:38 | Emergency (ER) | payer OTHER ==
[2020-09-23 15:45] VITALS: TEMP 97.2; BMI 27.1
[2020-09-23 16:58] LABS: BASO % 0.8 % (0-2.0); EOS % 1.1 % (0-4.5); HEMATOCRIT 40.6 % (35.4-49); HEMOGLOBIN 13.8 GM/dL (11.7-16.9); LYMPH % 56.8 % (8-40); MCH 29.6 pg (25.7-33.7); MCHC 34.1 g/dl (32.0-35.9); MEAN CELL VOLUME 86.8 fl (80-96); MEAN PLT VOLUME 8.7 fl (7.5-11.1); MONO % 10.9 % (3.8-10.2); NEUT % 30.4 % (42.8-82.8); PLATELET COUNT 197 K/MM3 (134-434); RBC 4.67 M/mm3 (4.00-5.60); RDW 14.4 % (11.9-15.9)
[2020-09-23 17:09] LABS: CHLORIDE 99 mmol/L (98-107); SODIUM 134 mmol/L (136-145)
[2020-09-23 17:11] LABS: ALBUMIN 4.1 g/dl (3.4-5.0); ANION GAP 9 MMOL/L (8-16); BLOOD UREA NITROGEN 9.4 mg/dL (7-18); CALCIUM 9.1 mg/dL (8.5-10.1); CO2 26 mmol/L (21-32)
[2020-09-23 17:12] LABS: GLUCOSE,RANDOM 102 mg/dL (74-106)
[2020-09-23 17:14] LABS: CREATININE 0.7 mg/dL (0.55-1.3); SGOT/AST 59 U/L (15-37); SGPT/ALT 34 U/L (13-61)
[2020-09-23 17:16] LABS: BILIRUBIN,TOTAL 0.8 mg/dL (0.2-1); TOT PROT 8.1 g/dl (6.4-8.2)
[2020-09-23 17:17] LABS: ALK PHOS 114 U/L (45-117)
[2020-09-23 19:09] VITALS: BP 130/77; PULSE 86
== END 2020-09-23 19:09 | disposition home or self-care (01) ==
LOC: JER 14:38
DX: F10.920 Alcohol use, unspecified with intoxication, uncomplicated (principal)
CPT/HCPCS: 36415; 70450-TC; 80053; 84484; 85025; 93005; 93010; 99285-25

== ENCOUNTER 2020-09-23 22:24 | Inpatient (IN) | payer OTHER ==
[~2020-09-23 22:24] MED LIST changes: -LOPERAMIDE HCL 2 MG CAPSULE PO PRN; -MAG HYDROX/AL HYDROX/SIMETH 30 ML UNIT-DOSE CUP PO PRN; -MAGNESIUM CITRATE 300 ML BOTTLE PO PRN; -MAGNESIUM HYDROX 2400MG/30ML ORAL SUSPENSION 30 ML CUP PO PRN; -MENTHOL/PHENOL 1 EACH UD MM PRN; -NICOTINE 14 MG/24 HOURS TOPICAL PATCH TD PRN; -NICOTINE POLACRILEX 2 MG GUM BUC PRN; -P-EPHED 60MG/TRIPROLIDI 2.5MG TABLET PO PRN; +chlordiazePOXIDE HCL 25 MG CAPSULE PO SCH; -guaiFENesin/D-METHORPHAN HB 10 ML UNIT-DOSE CUPS PO PRN
[2020-09-23] MEDS ORDERED: MAG HYDROX/AL HYDROX/SIMETH 30 ML UNIT-DOSE CUP PO PRN (23:48)
[2020-09-23] MEDS ORDERED: ONDANSETRON *ODT* 4 MG TABLET SL PRN (23:48)
[2020-09-23] MEDS ORDERED: MAGNESIUM CITRATE 300 ML BOTTLE PO PRN (23:48)
[2020-09-23] MEDS ORDERED: MENTHOL/PHENOL 1 EACH UD MM PRN (23:48)
[2020-09-23] MEDS ORDERED: IBUPROFEN 400 MG TABLET (FP) PO PRN (23:48)
[2020-09-23] MEDS ORDERED: chlordiazePOXIDE HCL 25 MG CAPSULE PO PRN (23:48)
[2020-09-23] MEDS ORDERED: METHOCARBAMOL 500 MG TABLET PO PRN (23:48)
[2020-09-23] MEDS ORDERED: ACETAMINOPHEN 325 MG TABLET (FP) PO PRN (23:48)
[2020-09-23] MEDS ORDERED: MAGNESIUM HYDROX 2400MG/30ML ORAL SUSPENSION 30 ML CUP PO PRN (23:48)
[2020-09-23] MEDS ORDERED: BISMUTH SUBSALICYLATE 524 MG/30 ML UD PO PRN (23:48)
[2020-09-23] MEDS ORDERED: NICOTINE POLACRILEX 2 MG GUM BUC PRN (23:48)
[2020-09-24 00:02] VITALS: BMI 24.0
[2020-09-24] MEDS ORDERED: cloNIDine HCL 0.1 MG TABLET PO ONE (02:15)
[2020-09-24] MEDS: chlordiazePOXIDE HCL 25 MG CAPSULE PO SCH ×4 (06:08→22:34)
[2020-09-24] MEDS: NICOTINE 14 MG/24 HOURS TOPICAL PATCH TD SCH (10:08)
[2020-09-24] MEDS: FAMOTIDINE 20 MG TABLET PO SCH ×2 (10:09→22:34)
[2020-09-24] MEDS: ASPIRIN 81 MG CHEWABLE TABLETS PO SCH (10:09)
[2020-09-24] MEDS: amLODIPine BESYLATE 5 MG TABLET (FP) PO SCH (10:10)
[2020-09-24] MEDS: PRENATAL VITAMINS W/ FOLIC ACID TABLET (FP) PO SCH (10:10)
[2020-09-24 10:59] LABS: HEMATOCRIT 36.1 % (35.4-49); HEMOGLOBIN 12.3 GM/dL (11.7-16.9); MCH 29.5 pg (25.7-33.7); MCHC 33.9 g/dl (32.0-35.9); MEAN CELL VOLUME 87.1 fl (80-96); MEAN PLT VOLUME 8.8 fl (7.5-11.1); PLATELET COUNT 166 K/MM3 (134-434); RBC 4.15 M/mm3 (4.00-5.60); RDW 14.4 % (11.9-15.9); WHITE BLOOD COUNT 2.8 K/mm3 (4.0-10.0)
[2020-09-24 11:06] LABS: ALBUMIN 3.5 g/dl (3.4-5.0); CALCIUM 8.9 mg/dL (8.5-10.1)
[2020-09-24 11:07] LABS: BLOOD UREA NITROGEN 12.7 mg/dL (7-18)
[2020-09-24 11:10] LABS: CREATININE 0.8 mg/dL (0.55-1.3)
[2020-09-24 11:11] LABS: BILIRUBIN,TOTAL 0.7 mg/dL (0.2-1); TOT PROT 7.3 g/dl (6.4-8.2)
[2020-09-24] MEDS ORDERED: SUVOREXANT 10 MG TABLET PO PRN (22:00)
[2020-09-24] MEDS: THIAMINE HCL 100 MG TABLET (FP) PO SCH (22:34)
[2020-09-24] MEDS: OLANZapine 10 MG TABLET PO SCH (22:34)
[2020-09-24] MEDS: MELATONIN 5 MG TABLETS PO SCH (23:15)
[2020-09-25] MEDS ORDERED: chlordiazePOXIDE HCL 10 MG CAPSULE PO PRN
[2020-09-25] MEDS: chlordiazePOXIDE HCL 10 MG CAPSULE PO SCH ×4 (05:37→22:20)
[2020-09-25] MEDS: FAMOTIDINE 20 MG TABLET PO SCH ×2 (10:14→22:19)
[2020-09-25] MEDS: ASPIRIN 81 MG CHEWABLE TABLETS PO SCH (10:14)
[2020-09-25] MEDS: amLODIPine BESYLATE 5 MG TABLET (FP) PO SCH (10:14)
[2020-09-25] MEDS: PRENATAL VITAMINS W/ FOLIC ACID TABLET (FP) PO SCH (10:16)
[2020-09-25] MEDS: NICOTINE 14 MG/24 HOURS TOPICAL PATCH TD SCH (10:19)
[2020-09-25] MEDS: THIAMINE HCL 100 MG TABLET (FP) PO SCH (22:19)
[2020-09-25] MEDS: OLANZapine 10 MG TABLET PO SCH (22:19)
[2020-09-25] MEDS: MELATONIN 5 MG TABLETS PO SCH (22:20)
[2020-09-26] MEDS: chlordiazePOXIDE HCL 10 MG CAPSULE PO SCH ×2 (06:10→19:10)
[2020-09-26] MEDS: FAMOTIDINE 20 MG TABLET PO SCH ×2 (10:10→22:17)
[2020-09-26] MEDS: PRENATAL VITAMINS W/ FOLIC ACID TABLET (FP) PO SCH (10:10)
[2020-09-26] MEDS: ASPIRIN 81 MG CHEWABLE TABLETS PO SCH (10:11)
[2020-09-26] MEDS: NICOTINE 14 MG/24 HOURS TOPICAL PATCH TD SCH (10:11)
[2020-09-26] MEDS: ACETAMINOPHEN 325 MG TABLET (FP) PO PRN ×2 (10:11→22:15)
[2020-09-26] MEDS: amLODIPine BESYLATE 5 MG TABLET (FP) PO SCH (10:11)
[2020-09-26 12:25] LABS: HEMATOCRIT 35.3 % (35.4-49); HEMOGLOBIN 11.9 GM/dL (11.7-16.9); MCH 29.9 pg (25.7-33.7); MCHC 33.6 g/dl (32.0-35.9); MEAN CELL VOLUME 88.9 fl (80-96); MEAN PLT VOLUME 9.6 fl (7.5-11.1); PLATELET COUNT 134 K/MM3 (134-434); RBC 3.97 M/mm3 (4.00-5.60); RDW 14.4 % (11.9-15.9); WHITE BLOOD COUNT 4.5 K/mm3 (4.0-10.0)
[2020-09-26 14:08] LABS: SARS-CoV-2 NAA Not Detected (Not Detected)
[2020-09-26] MEDS: MELATONIN 5 MG TABLETS PO SCH (22:16)
[2020-09-26] MEDS: THIAMINE HCL 100 MG TABLET (FP) PO SCH (22:16)
[2020-09-26] MEDS: OLANZapine 10 MG TABLET PO SCH (22:18)
[2020-09-27] MEDS ORDERED: chlordiazePOXIDE HCL 10 MG CAPSULE PO ONE (05:00)
[2020-09-27 09:23] VITALS: BP 156/86; PULSE 67; TEMP 97.7
[2020-09-27] MEDS: amLODIPine BESYLATE 5 MG TABLET (FP) PO SCH (10:11)
[2020-09-27] MEDS: ASPIRIN 81 MG CHEWABLE TABLETS PO SCH (10:12)
[2020-09-27] MEDS: PRENATAL VITAMINS W/ FOLIC ACID TABLET (FP) PO SCH (10:12)
[2020-09-27] MEDS: FAMOTIDINE 20 MG TABLET PO SCH (10:13)
[2020-09-27] MEDS: NICOTINE 14 MG/24 HOURS TOPICAL PATCH TD SCH (13:12)
== END 2020-09-27 10:20 | disposition home or self-care (01) | DRG 775 ==
LOC: YASAS 22:24 → Y6N 09-24 01:34
PROVIDERS: ADMIT Allergy & Immunology; ATTEND Allergy & Immunology
PROC: HZ2ZZZZ Detoxification Services for Substance Abuse Treatment (ICD-10-PCS; principal; 2020-09-24)
DX: F10.230 Alcohol dependence with withdrawal, uncomplicated (principal); F12.20 Cannabis dependence, uncomplicated; F17.210 Nicotine dependence, cigarettes, uncomplicated; F10.282 Alcohol dependence with alcohol-induced sleep disorder; F19.24 Other psychoactive substance dependence with psychoactive substance-induced mood disorder; F30.9 Manic episode, unspecified; F20.9 Schizophrenia, unspecified; I10 Essential (primary) hypertension; J44.9 Chronic obstructive pulmonary disease, unspecified; H91.92 Unspecified hearing loss, left ear; K59.09 Other constipation; M17.0 Bilateral primary osteoarthritis of knee; M10.9 Gout, unspecified; M54.5 Low back pain; R73.03 Prediabetes
CPT/HCPCS: 36415; 70450-TC; 80053; 82962; 83036; 84484; 85025; 85027; 86780; 93005; 93010; 99285-25; C9803; J0735; U0003; U0005

== ENCOUNTER 2020-11-28 18:03 | Emergency (ER) | payer OTHER ==
[2020-11-28 18:08] VITALS: BP 131/86; PULSE 80; TEMP 98.8; BMI 26.6
== END 2020-11-28 20:10 | disposition left against medical advice (07) ==
LOC: JER 18:03
DX: F10.129 Alcohol abuse with intoxication, unspecified (principal)
CPT/HCPCS: 99281-25

== ENCOUNTER 2021-02-03 23:05 | Inpatient (IN) | payer OTHER ==
[2021-02-04 01:22] VITALS: BMI 21.6
[2021-02-04] MEDS ORDERED: IBUPROFEN 400 MG TABLET (FP) PO PRN (03:28)
[2021-02-04] MEDS ORDERED: MENTHOL/PHENOL 1 EACH UD MM PRN (03:28)
[2021-02-04] MEDS ORDERED: ACETAMINOPHEN 325 MG TABLET (FP) PO PRN ×2 (03:28)
[2021-02-04] MEDS ORDERED: MAGNESIUM HYDROX 2400MG/30ML ORAL SUSPENSION 30 ML CUP PO PRN (03:28)
[2021-02-04] MEDS ORDERED: BISMUTH SUBSALICYLATE 524 MG/30 ML PO PRN (03:28)
[2021-02-04] MEDS ORDERED: MAG HYDROX/AL HYDROX/SIMETH 30 ML UNIT-DOSE CUP PO PRN (03:28)
[2021-02-04] MEDS ORDERED: diazePAM 5 MG TABLET PO PRN (03:28)
[2021-02-04] MEDS ORDERED: MAGNESIUM CITRATE 300 ML BOTTLE PO PRN (03:28)
[2021-02-04] MEDS ORDERED: NICOTINE POLACRILEX 2 MG GUM BUC PRN (03:28)
[2021-02-04] MEDS ORDERED: NICOTINE 10 MG CARTRIDGE (INHALER) IH PRN (03:28)
[2021-02-04] MEDS ORDERED: ONDANSETRON *ODT* 4 MG TABLET SL PRN (03:28)
[2021-02-04] MEDS ORDERED: diazePAM 5 MG TABLET PO ONE (03:28)
[2021-02-04] MEDS ORDERED: diazePAM 5 MG TABLET ONE (05:32)
[2021-02-04] MEDS ORDERED: hydrOXYzine PAMOATE 25 MG CAPSULE (FP) PO ONE (05:32)
[2021-02-04] MEDS: hydrOXYzine PAMOATE 25 MG CAPSULE (FP) PO SCH ×5 (05:38→22:02)
[2021-02-04] MEDS: diazePAM 5 MG TABLET PO SCH ×4 (05:38→22:05)
[2021-02-04] MEDS: PRENATAL VITAMINS W/ FOLIC ACID TABLET (FP) PO SCH (12:11)
[2021-02-04] MEDS: NICOTINE 7 MG/24 HOURS TOPICAL PATCH TD SCH (12:11)
[2021-02-04] MEDS: amLODIPine BESYLATE 5 MG TABLET (FP) PO SCH (12:14)
[2021-02-04] MEDS: ASPIRIN 81 MG CHEWABLE TABLETS PO SCH (12:14)
[2021-02-04 14:09] LABS: HEMATOCRIT 31.5 % (35.4-49); HEMOGLOBIN 10.7 GM/dL (11.7-16.9); MCHC 34.1 g/dl (32.0-35.9); MEAN CELL VOLUME 96.8 fl (80-96); MEAN PLT VOLUME 9.4 fl (7.5-11.1); PLATELET COUNT 136 10^3/uL (134-434); RBC 3.25 M/mm3 (4.00-5.60); RDW 15.2 % (11.9-15.9); WHITE BLOOD COUNT 3.5 K/mm3 (4.0-10.0)
[2021-02-04 14:19] LABS: ALBUMIN 3.5 g/dl (3.4-5.0); CALCIUM 8.7 mg/dL (8.5-10.1)
[2021-02-04 14:20] LABS: BLOOD UREA NITROGEN 5.8 mg/dL (7-18)
[2021-02-04 14:23] LABS: CREATININE 0.7 mg/dL (0.55-1.3)
[2021-02-04 14:24] LABS: BILIRUBIN,TOTAL 0.6 mg/dL (0.2-1); TOT PROT 7.4 g/dl (6.4-8.2)
[2021-02-04] MEDS ORDERED: MELATONIN 5 MG TABLETS PO SCH (22:00)
[2021-02-04] MEDS: THIAMINE HCL 100 MG TABLET (FP) PO SCH (22:02)
[2021-02-04] MEDS: OLANZapine 10 MG TABLET PO SCH (22:04)
[2021-02-04] MEDS: SUVOREXANT 10 MG TABLET PO PRN (22:04)
[2021-02-05] MEDS: diazePAM 5 MG TABLET PO SCH ×3 (05:28→21:54)
[2021-02-05] MEDS: hydrOXYzine PAMOATE 25 MG CAPSULE (FP) PO SCH ×5 (05:28→21:55)
[2021-02-05] MEDS: amLODIPine BESYLATE 5 MG TABLET (FP) PO SCH (10:08)
[2021-02-05] MEDS: NICOTINE 7 MG/24 HOURS TOPICAL PATCH TD SCH (10:08)
[2021-02-05] MEDS: PRENATAL VITAMINS W/ FOLIC ACID TABLET (FP) PO SCH (10:08)
[2021-02-05] MEDS: ASPIRIN 81 MG CHEWABLE TABLETS PO SCH (10:08)
[2021-02-05] MEDS: OLANZapine 10 MG TABLET PO SCH (21:54)
[2021-02-05] MEDS: METHOCARBAMOL 500 MG TABLET PO PRN (21:54)
[2021-02-05] MEDS: THIAMINE HCL 100 MG TABLET (FP) PO SCH (21:54)
[2021-02-05] MEDS: SUVOREXANT 10 MG TABLET PO PRN (21:56)
[2021-02-06] MEDS: hydrOXYzine PAMOATE 25 MG CAPSULE (FP) PO SCH ×5 (05:31→22:14)
[2021-02-06] MEDS: diazePAM 5 MG TABLET PO SCH ×2 (05:31→18:18)
[2021-02-06] MEDS ORDERED: cloNIDine HCL 0.1 MG TABLET PO PRN (08:56)
[2021-02-06] MEDS: ASPIRIN 81 MG CHEWABLE TABLETS PO SCH (09:16)
[2021-02-06] MEDS: METHOCARBAMOL 500 MG TABLET PO PRN (09:16)
[2021-02-06] MEDS: amLODIPine BESYLATE 5 MG TABLET (FP) PO SCH (09:16)
[2021-02-06] MEDS: PRENATAL VITAMINS W/ FOLIC ACID TABLET (FP) PO SCH (09:17)
[2021-02-06] MEDS: NICOTINE 7 MG/24 HOURS TOPICAL PATCH TD SCH (09:17)
[2021-02-06] MEDS ORDERED: CYANOCOBALAMIN 1,000 MCG TABLET (FP) PO SCH (10:00)
[2021-02-06] MEDS: OLANZapine 10 MG TABLET PO SCH (22:14)
[2021-02-06] MEDS: SUVOREXANT 10 MG TABLET PO PRN (22:14)
[2021-02-06] MEDS: THIAMINE HCL 100 MG TABLET (FP) PO SCH (22:14)
[2021-02-07] MEDS: hydrOXYzine PAMOATE 25 MG CAPSULE (FP) PO SCH (05:17)
[2021-02-07] MEDS ORDERED: diazePAM 5 MG TABLET PO ONE (06:00)
[2021-02-07 09:03] VITALS: BP 138/82; PULSE 79; TEMP 97.8
== END 2021-02-07 09:34 | disposition home or self-care (01) | DRG 775 ==
LOC: YASAS 23:05 → Y6N 02-04 10:29
PROVIDERS: ADMIT Allergy & Immunology; ATTEND Allergy & Immunology
PROC: HZ2ZZZZ Detoxification Services for Substance Abuse Treatment (ICD-10-PCS; principal; 2021-02-04)
DX: F10.230 Alcohol dependence with withdrawal, uncomplicated (principal); F12.20 Cannabis dependence, uncomplicated; F17.210 Nicotine dependence, cigarettes, uncomplicated; F25.9 Schizoaffective disorder, unspecified; F10.282 Alcohol dependence with alcohol-induced sleep disorder; D50.9 Iron deficiency anemia, unspecified; E11.9 Type 2 diabetes mellitus without complications; I10 Essential (primary) hypertension; J44.9 Chronic obstructive pulmonary disease, unspecified; M10.9 Gout, unspecified; M17.0 Bilateral primary osteoarthritis of knee; M54.5 Low back pain; G89.29 Other chronic pain; H91.92 Unspecified hearing loss, left ear
CPT/HCPCS: 36415; 80053; 82962; 85027; 86780; C9803; U0003; U0005

== ENCOUNTER 2021-03-03 19:39 | Inpatient (IN) | payer OTHER ==
[2021-03-04] MEDS ORDERED: NICOTINE 10 MG CARTRIDGE (INHALER) IH PRN (00:25)
[2021-03-04] MEDS ORDERED: ACETAMINOPHEN 325 MG TABLET (FP) PO PRN (00:25)
[2021-03-04] MEDS ORDERED: BISMUTH SUBSALICYLATE 524 MG/30 ML PO PRN (00:25)
[2021-03-04] MEDS ORDERED: MAGNESIUM CITRATE 300 ML BOTTLE PO PRN (00:25)
[2021-03-04] MEDS ORDERED: ONDANSETRON *ODT* 4 MG TABLET SL PRN (00:25)
[2021-03-04] MEDS ORDERED: MAGNESIUM HYDROX 2400MG/30ML ORAL SUSPENSION 30 ML CUP PO PRN (00:25)
[2021-03-04] MEDS ORDERED: MAG HYDROX/AL HYDROX/SIMETH 30 ML UNIT-DOSE CUP PO PRN (00:25)
[2021-03-04] MEDS ORDERED: MENTHOL/PHENOL 1 EACH UD MM PRN (00:25)
[2021-03-04] MEDS ORDERED: diazePAM 5 MG TABLET PO PRN (00:47)
[2021-03-04] MEDS: ACETAMINOPHEN 325 MG TABLET (FP) PO PRN (01:15)
[2021-03-04] MEDS: METHOCARBAMOL 500 MG TABLET PO PRN (01:15)
[2021-03-04 02:04] VITALS: BMI 22.2
[2021-03-04] MEDS ORDERED: diazePAM 5 MG TABLET ONE ×2 (05:35→10:52)
[2021-03-04] MEDS: hydrOXYzine PAMOATE 25 MG CAPSULE (FP) PO SCH ×5 (05:41→22:22)
[2021-03-04] MEDS: diazePAM 5 MG TABLET PO SCH ×4 (05:41→22:22)
[2021-03-04 10:28] LABS: ALBUMIN 3.5 g/dl (3.4-5.0); CALCIUM 8.8 mg/dL (8.5-10.1)
[2021-03-04 10:31] LABS: CREATININE 0.7 mg/dL (0.55-1.3); HEMATOCRIT 34.1 % (35.4-49); HEMOGLOBIN 11.4 GM/dL (11.7-16.9); MCH 32.1 pg (25.7-33.7); MCHC 33.6 g/dl (32.0-35.9); MEAN CELL VOLUME 95.7 fl (80-96); MEAN PLT VOLUME 9.6 fl (7.5-11.1); PLATELET COUNT 133 10^3/uL (134-434); RBC 3.56 M/mm3 (4.00-5.60); RDW 13.7 % (11.9-15.9); WHITE BLOOD COUNT 2.9 K/mm3 (4.0-10.0)
[2021-03-04 10:33] LABS: BILIRUBIN,TOTAL 0.8 mg/dL (0.2-1); TOT PROT 7.3 g/dl (6.4-8.2)
[2021-03-04] MEDS ORDERED: hydrOXYzine PAMOATE 25 MG CAPSULE (FP) PO ONE (10:52)
[2021-03-04] MEDS ORDERED: amLODIPine BESYLATE 5 MG TABLET (FP) ONE (10:52)
[2021-03-04] MEDS ORDERED: ASPIRIN 81 MG CHEWABLE TABLETS ONE (10:52)
[2021-03-04] MEDS: amLODIPine BESYLATE 5 MG TABLET (FP) PO SCH (10:57)
[2021-03-04] MEDS: ASPIRIN 81 MG CHEWABLE TABLETS PO SCH (10:57)
[2021-03-04] MEDS: PRENATAL VITAMINS W/ FOLIC ACID TABLET (FP) PO SCH (10:57)
[2021-03-04 11:26] LABS: HIV INTERPRETATION NEGATIVE (NEGATIVE)
[2021-03-04] MEDS: PANTOPRAZOLE 40 MG TABLET PO SCH (15:01)
[2021-03-04] MEDS ORDERED: SUVOREXANT 10 MG TABLET PO PRN (22:00)
[2021-03-04] MEDS ORDERED: MELATONIN 5 MG TABLETS PO SCH (22:00)
[2021-03-04] MEDS: THIAMINE HCL 100 MG TABLET (FP) PO SCH (22:22)
[2021-03-05] MEDS: hydrOXYzine PAMOATE 25 MG CAPSULE (FP) PO SCH ×5 (05:52→22:04)
[2021-03-05] MEDS: diazePAM 5 MG TABLET PO SCH ×3 (05:52→22:05)
[2021-03-05] MEDS: PRENATAL VITAMINS W/ FOLIC ACID TABLET (FP) PO SCH (10:20)
[2021-03-05] MEDS: PANTOPRAZOLE 40 MG TABLET PO SCH (10:21)
[2021-03-05] MEDS: ASPIRIN 81 MG CHEWABLE TABLETS PO SCH (10:21)
[2021-03-05] MEDS: amLODIPine BESYLATE 5 MG TABLET (FP) PO SCH (10:21)
[2021-03-05] MEDS ORDERED: METHYL SALICYLATE/MENTHOL OINT 30 GM TUBE TP PRN (15:37)
[2021-03-05] MEDS: METHOCARBAMOL 500 MG TABLET PO PRN (17:25)
[2021-03-05] MEDS: ACETAMINOPHEN 325 MG TABLET (FP) PO PRN (17:25)
[2021-03-05] MEDS: THIAMINE HCL 100 MG TABLET (FP) PO SCH (22:04)
[2021-03-06] MEDS: IBUPROFEN 400 MG TABLET (FP) PO PRN ×2 (02:54→17:52)
[2021-03-06] MEDS: METHOCARBAMOL 500 MG TABLET PO PRN (02:54)
[2021-03-06] MEDS: hydrOXYzine PAMOATE 25 MG CAPSULE (FP) PO SCH ×5 (06:34→22:25)
[2021-03-06] MEDS: diazePAM 5 MG TABLET PO SCH ×2 (06:34→17:50)
[2021-03-06] MEDS: PANTOPRAZOLE 40 MG TABLET PO SCH (10:17)
[2021-03-06] MEDS: amLODIPine BESYLATE 5 MG TABLET (FP) PO SCH (10:17)
[2021-03-06] MEDS: ASPIRIN 81 MG CHEWABLE TABLETS PO SCH (10:17)
[2021-03-06] MEDS: PRENATAL VITAMINS W/ FOLIC ACID TABLET (FP) PO SCH (10:17)
[2021-03-06] MEDS: ACETAMINOPHEN 325 MG TABLET (FP) PO PRN (10:19)
[2021-03-06] MEDS: THIAMINE HCL 100 MG TABLET (FP) PO SCH (22:25)
[2021-03-07] MEDS ORDERED: diazePAM 5 MG TABLET PO ONE (06:00)
[2021-03-07] MEDS: hydrOXYzine PAMOATE 25 MG CAPSULE (FP) PO SCH (06:24)
[2021-03-07] MEDS: ACETAMINOPHEN 325 MG TABLET (FP) PO PRN (06:25)
[2021-03-07 07:41] VITALS: BP 115/67; PULSE 66; TEMP 97.1
== END 2021-03-07 09:38 | disposition home or self-care (01) | DRG 775 ==
LOC: YASAS 19:39 → Y3N 03-04 13:16
PROVIDERS: ADMIT Allergy & Immunology; ATTEND Allergy & Immunology
PROC: HZ2ZZZZ Detoxification Services for Substance Abuse Treatment (ICD-10-PCS; principal; 2021-03-04)
DX: F10.230 Alcohol dependence with withdrawal, uncomplicated (principal); F12.20 Cannabis dependence, uncomplicated; F17.210 Nicotine dependence, cigarettes, uncomplicated; F25.0 Schizoaffective disorder, bipolar type; F31.9 Bipolar disorder, unspecified; F10.982 Alcohol use, unspecified with alcohol-induced sleep disorder; E11.9 Type 2 diabetes mellitus without complications; H91.92 Unspecified hearing loss, left ear; I10 Essential (primary) hypertension; J44.9 Chronic obstructive pulmonary disease, unspecified; M17.0 Bilateral primary osteoarthritis of knee; Z86.2 Personal history of diseases of the blood and blood-forming organs and certain disorders involving the immune mechanism; Z91.410 Personal history of adult physical and sexual abuse; Z56.0 Unemployment, unspecified
CPT/HCPCS: 36415; 80053; 82962; 85027; 86780; 87389; C9803; U0003; U0005

== ENCOUNTER 2021-03-07 18:35 | Observation (INO) | payer OTHER ==
[2021-03-07 18:50] VITALS: TEMP 98.6; BMI 29.0
[2021-03-07 20:03] LABS: BASO % 1.2 % (0-2.0); EOS % 2.1 % (0-4.5); HEMATOCRIT 33.5 % (35.4-49); HEMOGLOBIN 11.3 GM/dL (11.7-16.9); LYMPH % 30.3 % (8-40); MCH 32.3 pg (25.7-33.7); MCHC 33.6 g/dl (32.0-35.9); MEAN CELL VOLUME 96.1 fl (80-96); MEAN PLT VOLUME 8.5 fl (7.5-11.1); MONO % 12.6 % (3.8-10.2); NEUT % 53.8 % (42.8-82.8); PLATELET COUNT 131 10^3/uL (134-434); RBC 3.49 M/mm3 (4.00-5.60); RDW 13.4 % (11.9-15.9); WHITE BLOOD COUNT 3.7 K/mm3 (4.0-10.0)
[2021-03-07 20:19] LABS: CHLORIDE 109 mmol/L (98-107); SODIUM 142 mmol/L (136-145)
[2021-03-07 20:20] LABS: CALCIUM 8.9 mg/dL (8.5-10.1)
[2021-03-07 20:21] LABS: ALBUMIN 3.4 g/dl (3.4-5.0); ANION GAP 5 MMOL/L (8-16); BLOOD UREA NITROGEN 4.4 mg/dL (7-18); CO2 28 mmol/L (21-32); GLUCOSE,RANDOM 95 mg/dL (74-106)
[2021-03-07 20:24] LABS: CREATININE 0.7 mg/dL (0.55-1.3); SGOT/AST 40 U/L (15-37)
[2021-03-07 20:26] LABS: BILIRUBIN,TOTAL 0.4 mg/dL (0.2-1); TOT PROT 7.3 g/dl (6.4-8.2)
[2021-03-07 20:27] LABS: ALK PHOS 72 U/L (45-117)
[2021-03-07 21:29] LABS: SGPT/ALT 38 U/L (13-61)
[2021-03-07] MEDS ORDERED: FOLIC ACID INJECTION - 1 MG, THIAMINE HCL 100 MG, MULTIVIT INJECTION ADULT 10 ML in SOD... IVPB ONE (23:25)
[2021-03-08 05:19] VITALS: BP 135/70; PULSE 77
[2021-03-08] MEDS ORDERED: LORazepam 1 MG TABLET PO PRN (06:22)
[2021-03-08] MEDS ORDERED: ACETAMINOPHEN 325 MG TABLET (FP) PO PRN (06:32)
[2021-03-08 07:19] LABS: CHLORIDE 112 mmol/L (98-107); SODIUM 143 mmol/L (136-145)
[2021-03-08 07:25] LABS: BASO % 1.1 % (0-2.0); EOS % 3.2 % (0-4.5); HEMOGLOBIN 10.7 GM/dL (11.7-16.9); MCH 32.1 pg (25.7-33.7); MCHC 33.4 g/dl (32.0-35.9); MEAN CELL VOLUME 96.1 fl (80-96); MEAN PLT VOLUME 9.1 fl (7.5-11.1); MONO % 15.2 % (3.8-10.2); NEUT % 37.5 % (42.8-82.8); PLATELET COUNT 156 10^3/uL (134-434); RBC 3.33 M/mm3 (4.00-5.60); RDW 13.4 % (11.9-15.9); WHITE BLOOD COUNT 2.7 K/mm3 (4.0-10.0)
[2021-03-08 07:29] LABS: CALCIUM 8.6 mg/dL (8.5-10.1)
[2021-03-08 07:30] LABS: ANION GAP 5 MMOL/L (8-16); BLOOD UREA NITROGEN 6.9 mg/dL (7-18); CO2 26 mmol/L (21-32); GLUCOSE,RANDOM 95 mg/dL (74-106); MAGNESIUM 1.7 mg/dL (1.8-2.4)
[2021-03-08 07:33] LABS: CREATININE 0.6 mg/dL (0.55-1.3); SGOT/AST 29 U/L (15-37); SGPT/ALT 32 U/L (13-61)
[2021-03-08 07:34] LABS: ALK PHOS 64 U/L (45-117)
[2021-03-08 07:35] LABS: BILIRUBIN,TOTAL 0.3 mg/dL (0.2-1); TOT PROT 6.6 g/dl (6.4-8.2)
[2021-03-08] MEDS ORDERED: CYANOCOBALAMIN 1,000 MCG TABLET (FP) PO SCH (10:00)
[2021-03-08] MEDS ORDERED: amLODIPine BESYLATE 5 MG TABLET (FP) PO SCH (10:00)
[2021-03-08] MEDS ORDERED: MULTIVITAMINS (DAILY MVI) TABLET (FP) PO SCH (10:00)
[2021-03-08] MEDS ORDERED: PANTOPRAZOLE 40 MG TABLET PO SCH (10:00)
[2021-03-08] MEDS ORDERED: NICOTINE 14 MG/24 HOURS TOPICAL PATCH TD SCH (10:00)
[2021-03-08] MEDS ORDERED: ASPIRIN 81 MG CHEWABLE TABLETS PO SCH (10:00)
[2021-03-08] MEDS ORDERED: THIAMINE HCL 100 MG TABLET (FP) PO SCH (22:00)
== END 2021-03-08 10:00 | disposition left against medical advice (07) ==
LOC: JER 18:35 → JERBED 23:23
PROVIDERS: ADMIT Internal Medicine; ATTEND Family Medicine
PROC: 3E033GC Introduction of Other Therapeutic Substance into Peripheral Vein, Percutaneous Approach (ICD-10-PCS; principal; 2021-03-07)
DX: R55 Syncope and collapse (principal); F10.99 Alcohol use, unspecified with unspecified alcohol-induced disorder; S00.83XA Contusion of other part of head, initial encounter; W18.39XA Other fall on same level, initial encounter; Y93.89 Activity, other specified; Y92.89 Other specified places as the place of occurrence of the external cause; F25.9 Schizoaffective disorder, unspecified; F17.210 Nicotine dependence, cigarettes, uncomplicated; J44.9 Chronic obstructive pulmonary disease, unspecified; M10.9 Gout, unspecified; M19.90 Unspecified osteoarthritis, unspecified site; F31.9 Bipolar disorder, unspecified; R73.03 Prediabetes; M54.5 Low back pain; G89.29 Other chronic pain
CPT/HCPCS: 36415; 70450-TC; 71045-TC-FY; 72125-TC; 80053; 80307; 83735; 84484; 85025; 93005; 93010; 93880-TC; 96365; 99285-25; C9803; G0378; U0003; U0005

== ENCOUNTER 2021-09-02 13:33 | Inpatient (IN) | payer OTHER ==
[2021-09-02 17:12] VITALS: BMI 22.2
[2021-09-02] MEDS ORDERED: MAGNESIUM CITRATE 300 ML BOTTLE PO PRN (17:37)
[2021-09-02] MEDS ORDERED: P-EPHED 60MG/TRIPROLIDI 2.5MG TABLET PO PRN (17:37)
[2021-09-02] MEDS ORDERED: MENTHOL/PHENOL 1 EACH UD MM PRN (17:37)
[2021-09-02] MEDS ORDERED: guaiFENesin 200 MG/10 ML 10 ML UNIT-DOSE CUPS PO PRN (17:37)
[2021-09-02] MEDS ORDERED: LOPERAMIDE HCL 2 MG CAPSULE PO PRN (17:37)
[2021-09-02] MEDS ORDERED: MAGNESIUM HYDROX 2400MG/30ML ORAL SUSPENSION 30 ML CUP PO PRN (17:37)
[2021-09-02] MEDS ORDERED: MAG HYDROX/AL HYDROX/SIMETH 30 ML UNIT-DOSE CUP PO PRN (17:37)
[2021-09-02] MEDS ORDERED: COLLOIDAL OATMEAL 1 BAR EACH TP PRN (17:42)
[2021-09-02] MEDS: ACETAMINOPHEN 325 MG TABLET (FP) PO PRN (20:35)
[2021-09-02] MEDS: INSULIN SLIDING SCALE (NOVOLOG) 1 VIAL SQ SCH (20:38)
[2021-09-02] MEDS: THIAMINE HCL 100 MG TABLET (FP) PO SCH (21:58)
[2021-09-02] MEDS ORDERED: MELATONIN 5 MG TABLETS PO SCH (22:00)
[2021-09-02] MEDS ORDERED: OLANZapine 5 MG TABLET PO ONE (22:00)
[2021-09-03] MEDS: INSULIN SLIDING SCALE (NOVOLOG) 1 VIAL SQ SCH ×2 (06:28→17:45)
[2021-09-03] MEDS: ASPIRIN 81 MG CHEWABLE TABLETS PO SCH (09:32)
[2021-09-03] MEDS: PRENATAL VITAMINS W/ FOLIC ACID TABLET (FP) PO SCH (09:32)
[2021-09-03] MEDS: amLODIPine BESYLATE 5 MG TABLET (FP) PO SCH (09:32)
[2021-09-03] MEDS: PANTOPRAZOLE 40 MG TABLET PO SCH (09:32)
[2021-09-03] MEDS: CYANOCOBALAMIN 1,000 MCG TABLET (FP) PO SCH (09:33)
[2021-09-03] MEDS: NICOTINE 7 MG/24 HOURS TOPICAL PATCH TD SCH (09:33)
[2021-09-03] MEDS ORDERED: LIDOCAINE 5% TOPICAL PATCH TP SCH (13:50)
[2021-09-03] MEDS: THIAMINE HCL 100 MG TABLET (FP) PO SCH (21:34)
[2021-09-03] MEDS: OLANZapine 10 MG TABLET PO SCH (21:36)
[2021-09-03] MEDS ORDERED: METHYL SALICYLATE/MENTHOL OINT 30 GM TUBE TP SCH (22:00)
[2021-09-03] MEDS ORDERED: SUVOREXANT 10 MG TABLET PO PRN (22:00)
[2021-09-03] MEDS: LIDOCAINE PATCH REMOVAL MC SCH (23:00)
[2021-09-03] MEDS: METHYL SALICYLATE/MENTHOL OINT 30 GM TUBE TP SCH (23:00)
[2021-09-04] MEDS: INSULIN SLIDING SCALE (NOVOLOG) 1 VIAL SQ SCH ×2 (06:16→16:53)
[2021-09-04] MEDS: LIDOCAINE 5% TOPICAL PATCH TP SCH (09:23)
[2021-09-04] MEDS: NICOTINE 7 MG/24 HOURS TOPICAL PATCH TD SCH (09:24)
[2021-09-04] MEDS: PANTOPRAZOLE 40 MG TABLET PO SCH (09:24)
[2021-09-04] MEDS: ASPIRIN 81 MG CHEWABLE TABLETS PO SCH (09:24)
[2021-09-04] MEDS: PRENATAL VITAMINS W/ FOLIC ACID TABLET (FP) PO SCH (09:24)
[2021-09-04] MEDS: amLODIPine BESYLATE 5 MG TABLET (FP) PO SCH (09:24)
[2021-09-04] MEDS: ACETAMINOPHEN 325 MG TABLET (FP) PO PRN (09:26)
[2021-09-04] MEDS: CYANOCOBALAMIN 1,000 MCG TABLET (FP) PO SCH (10:24)
[2021-09-04] MEDS ORDERED: INSULIN (NOVOLOG) ASPART 100 UNITS/ML 10ML VIAL ONE (16:50)
[2021-09-04] MEDS: THIAMINE HCL 100 MG TABLET (FP) PO SCH (21:24)
[2021-09-04] MEDS: OLANZapine 10 MG TABLET PO SCH (21:24)
[2021-09-04] MEDS: LIDOCAINE PATCH REMOVAL MC SCH (21:24)
[2021-09-04] MEDS: SUVOREXANT 15 MG TABLET PO PRN (21:25)
[2021-09-04] MEDS: METHYL SALICYLATE/MENTHOL OINT 30 GM TUBE TP SCH (21:26)
[2021-09-05] MEDS: INSULIN SLIDING SCALE (NOVOLOG) 1 VIAL SQ SCH ×2 (06:27→17:28)
[2021-09-05] MEDS ORDERED: NALTREXONE HCL 50 MG TABLET PO SCH (10:00)
[2021-09-05] MEDS: LIDOCAINE 5% TOPICAL PATCH TP SCH (10:14)
[2021-09-05] MEDS: PANTOPRAZOLE 40 MG TABLET PO SCH (10:14)
[2021-09-05] MEDS: CYANOCOBALAMIN 1,000 MCG TABLET (FP) PO SCH (10:14)
[2021-09-05] MEDS: amLODIPine BESYLATE 5 MG TABLET (FP) PO SCH (10:15)
[2021-09-05] MEDS: PRENATAL VITAMINS W/ FOLIC ACID TABLET (FP) PO SCH (10:15)
[2021-09-05] MEDS: ASPIRIN 81 MG CHEWABLE TABLETS PO SCH (10:16)
[2021-09-05] MEDS: NICOTINE 7 MG/24 HOURS TOPICAL PATCH TD SCH (10:16)
[2021-09-05] MEDS ORDERED: NICOTINE POLACRILEX 2 MG GUM BUC PRN (11:56)
[2021-09-05] MEDS: NICOTINE 10 MG CARTRIDGE (INHALER) IH PRN (16:59)
[2021-09-05] MEDS: LIDOCAINE PATCH REMOVAL MC SCH (21:15)
[2021-09-05] MEDS: THIAMINE HCL 100 MG TABLET (FP) PO SCH (21:16)
[2021-09-05] MEDS: SUVOREXANT 15 MG TABLET PO PRN (21:16)
[2021-09-05] MEDS: OLANZapine 10 MG TABLET PO SCH (21:16)
[2021-09-05] MEDS: IBUPROFEN 400 MG TABLET (FP) PO PRN (21:17)
[2021-09-05] MEDS: METHYL SALICYLATE/MENTHOL OINT 30 GM TUBE TP SCH (21:19)
[2021-09-06] MEDS: INSULIN SLIDING SCALE (NOVOLOG) 1 VIAL SQ SCH ×2 (06:34→16:55)
[2021-09-06] MEDS: LIDOCAINE 5% TOPICAL PATCH TP SCH (09:36)
[2021-09-06] MEDS: amLODIPine BESYLATE 5 MG TABLET (FP) PO SCH (09:37)
[2021-09-06] MEDS: ASPIRIN 81 MG CHEWABLE TABLETS PO SCH (09:37)
[2021-09-06] MEDS: CYANOCOBALAMIN 1,000 MCG TABLET (FP) PO SCH (09:37)
[2021-09-06] MEDS: PRENATAL VITAMINS W/ FOLIC ACID TABLET (FP) PO SCH (09:37)
[2021-09-06] MEDS: PANTOPRAZOLE 40 MG TABLET PO SCH (09:37)
[2021-09-06] MEDS: NICOTINE 7 MG/24 HOURS TOPICAL PATCH TD SCH (09:38)
[2021-09-06] MEDS: BACLOFEN 10 MG TABLET (FP) PO PRN ×2 (09:39→21:08)
[2021-09-06 10:06] LABS: SARS-CoV-2 NAA Not Detected (Not Detected)
[2021-09-06] MEDS: IBUPROFEN 400 MG TABLET (FP) PO PRN (15:53)
[2021-09-06] MEDS ORDERED: INSULIN (NOVOLOG) ASPART 100 UNITS/ML 10ML VIAL ONE (16:52)
[2021-09-06] MEDS: SUVOREXANT 15 MG TABLET PO PRN (21:08)
[2021-09-06] MEDS: THIAMINE HCL 100 MG TABLET (FP) PO SCH (21:08)
[2021-09-06] MEDS: METHYL SALICYLATE/MENTHOL OINT 30 GM TUBE TP SCH (21:08)
[2021-09-06] MEDS: OLANZapine 10 MG TABLET PO SCH (21:08)
[2021-09-06] MEDS: ACETAMINOPHEN 325 MG TABLET (FP) PO PRN (21:09)
[2021-09-06] MEDS: LIDOCAINE PATCH REMOVAL MC SCH (22:19)
[2021-09-07] MEDS: ACETAMINOPHEN 325 MG TABLET (FP) PO PRN (07:13)
[2021-09-07] MEDS: NICOTINE 10 MG CARTRIDGE (INHALER) IH PRN (07:14)
[2021-09-07] MEDS: INSULIN SLIDING SCALE (NOVOLOG) 1 VIAL SQ SCH ×2 (07:30→17:05)
[2021-09-07] MEDS: LIDOCAINE 5% TOPICAL PATCH TP SCH (09:40)
[2021-09-07] MEDS: ASPIRIN 81 MG CHEWABLE TABLETS PO SCH (09:40)
[2021-09-07] MEDS: CYANOCOBALAMIN 1,000 MCG TABLET (FP) PO SCH (09:41)
[2021-09-07] MEDS: PRENATAL VITAMINS W/ FOLIC ACID TABLET (FP) PO SCH (09:41)
[2021-09-07] MEDS: amLODIPine BESYLATE 5 MG TABLET (FP) PO SCH (09:41)
[2021-09-07] MEDS: NICOTINE 7 MG/24 HOURS TOPICAL PATCH TD SCH (09:41)
[2021-09-07] MEDS: PANTOPRAZOLE 40 MG TABLET PO SCH (09:41)
[2021-09-07] MEDS ORDERED: INSULIN (NOVOLOG) ASPART 100 UNITS/ML 10ML VIAL ONE (17:04)
[2021-09-07] MEDS: LIDOCAINE PATCH REMOVAL MC SCH (21:10)
[2021-09-07] MEDS: THIAMINE HCL 100 MG TABLET (FP) PO SCH (21:10)
[2021-09-07] MEDS: OLANZapine 10 MG TABLET PO SCH (21:11)
[2021-09-07] MEDS: IBUPROFEN 400 MG TABLET (FP) PO PRN (21:11)
[2021-09-07] MEDS: METHYL SALICYLATE/MENTHOL OINT 30 GM TUBE TP SCH (21:12)
[2021-09-07] MEDS: SUVOREXANT 15 MG TABLET PO PRN (21:12)
[2021-09-08] MEDS ORDERED: INSULIN (NOVOLOG) ASPART 100 UNITS/ML 10ML VIAL ONE ×2 (06:20→17:34)
[2021-09-08] MEDS: ACETAMINOPHEN 325 MG TABLET (FP) PO PRN (06:21)
[2021-09-08] MEDS: INSULIN SLIDING SCALE (NOVOLOG) 1 VIAL SQ SCH ×2 (06:21→17:38)
[2021-09-08] MEDS ORDERED: METHYL SALICYLATE/MENTHOL OINT 30 GM TUBE TP SCH (10:00)
[2021-09-08] MEDS: PANTOPRAZOLE 40 MG TABLET PO SCH (10:01)
[2021-09-08] MEDS: ASPIRIN 81 MG CHEWABLE TABLETS PO SCH (10:01)
[2021-09-08] MEDS: PRENATAL VITAMINS W/ FOLIC ACID TABLET (FP) PO SCH (10:01)
[2021-09-08] MEDS: amLODIPine BESYLATE 5 MG TABLET (FP) PO SCH (10:01)
[2021-09-08] MEDS: BACLOFEN 10 MG TABLET (FP) PO PRN ×2 (10:01→21:32)
[2021-09-08] MEDS: METHYL SALICYLATE/MENTHOL OINT 30 GM TUBE TP SCH ×4 (10:02→21:33)
[2021-09-08] MEDS: NICOTINE 7 MG/24 HOURS TOPICAL PATCH TD SCH (10:02)
[2021-09-08] MEDS: LIDOCAINE 5% TOPICAL PATCH TP SCH (10:02)
[2021-09-08] MEDS: NICOTINE 10 MG CARTRIDGE (INHALER) IH PRN (10:03)
[2021-09-08] MEDS: CYANOCOBALAMIN 1,000 MCG TABLET (FP) PO SCH (10:35)
[2021-09-08 11:22] LABS: BASO % 1.9 % (0-2.0); EOS % 4.7 % (0-4.5); HEMATOCRIT 28.9 % (35.4-49); HEMOGLOBIN 9.6 GM/dL (11.7-16.9); LYMPH % 31.5 % (8-40); MCH 30.8 pg (25.7-33.7); MCHC 33.3 g/dl (32.0-35.9); MEAN CELL VOLUME 92.6 fl (80-96); MEAN PLT VOLUME 9.4 fl (7.5-11.1); MONO % 16.6 % (3.8-10.2); NEUT % 45.3 % (42.8-82.8); PLATELET COUNT 202 10^3/uL (134-434); RBC 3.12 M/mm3 (4.00-5.60); RDW 16.3 % (11.9-15.9); WHITE BLOOD COUNT 2.9 K/mm3 (4.0-10.0)
[2021-09-08 11:36] LABS: BLOOD UREA NITROGEN 6.8 mg/dL (7-18); CALCIUM 9.1 mg/dL (8.5-10.1)
[2021-09-08 11:39] LABS: CREATININE 0.6 mg/dL (0.55-1.3)
[2021-09-08 11:41] LABS: BILIRUBIN,TOTAL 0.4 mg/dL (0.2-1); TOT PROT 6.7 g/dl (6.4-8.2)
[2021-09-08] MEDS: OLANZapine 10 MG TABLET PO SCH (21:32)
[2021-09-08] MEDS: THIAMINE HCL 100 MG TABLET (FP) PO SCH (21:32)
[2021-09-08] MEDS: LIDOCAINE PATCH REMOVAL MC SCH (21:33)
[2021-09-08] MEDS: SUVOREXANT 15 MG TABLET PO PRN (21:33)
[2021-09-09] MEDS ORDERED: INSULIN (NOVOLOG) ASPART 100 UNITS/ML 10ML VIAL ONE ×2 (06:22→17:39)
[2021-09-09] MEDS: INSULIN SLIDING SCALE (NOVOLOG) 1 VIAL SQ SCH ×2 (06:22→17:06)
[2021-09-09] MEDS: METHYL SALICYLATE/MENTHOL OINT 30 GM TUBE TP SCH ×4 (09:50→21:07)
[2021-09-09] MEDS: BACLOFEN 10 MG TABLET (FP) PO PRN (09:53)
[2021-09-09] MEDS: amLODIPine BESYLATE 5 MG TABLET (FP) PO SCH (09:54)
[2021-09-09] MEDS: ASPIRIN 81 MG CHEWABLE TABLETS PO SCH (09:54)
[2021-09-09] MEDS: CYANOCOBALAMIN 1,000 MCG TABLET (FP) PO SCH (09:54)
[2021-09-09] MEDS: LIDOCAINE 5% TOPICAL PATCH TP SCH (09:55)
[2021-09-09] MEDS: PRENATAL VITAMINS W/ FOLIC ACID TABLET (FP) PO SCH (09:56)
[2021-09-09] MEDS: NICOTINE 7 MG/24 HOURS TOPICAL PATCH TD SCH (09:56)
[2021-09-09] MEDS: PANTOPRAZOLE 40 MG TABLET PO SCH (09:56)
[2021-09-09] MEDS: ACETAMINOPHEN 325 MG TABLET (FP) PO PRN (17:07)
[2021-09-09] MEDS: FERROUS SO4 325 MG TABLET (FP) PO SCH (17:07)
[2021-09-09] MEDS: THIAMINE HCL 100 MG TABLET (FP) PO SCH (21:06)
[2021-09-09] MEDS: OLANZapine 10 MG TABLET PO SCH (21:06)
[2021-09-09] MEDS: LIDOCAINE PATCH REMOVAL MC SCH (21:07)
[2021-09-09] MEDS: SUVOREXANT 15 MG TABLET PO PRN (21:08)
[2021-09-09] MEDS: IBUPROFEN 400 MG TABLET (FP) PO PRN (21:09)
[2021-09-10] MEDS: INSULIN SLIDING SCALE (NOVOLOG) 1 VIAL SQ SCH ×3 (06:00→22:06)
[2021-09-10] MEDS ORDERED: INSULIN (NOVOLOG) ASPART 100 UNITS/ML 10ML VIAL ONE ×3 (06:17→21:29)
[2021-09-10] MEDS: FERROUS SO4 325 MG TABLET (FP) PO SCH ×3 (07:04→16:42)
[2021-09-10] MEDS: LIDOCAINE 5% TOPICAL PATCH TP SCH (10:02)
[2021-09-10] MEDS: amLODIPine BESYLATE 5 MG TABLET (FP) PO SCH (10:03)
[2021-09-10] MEDS: ASPIRIN 81 MG CHEWABLE TABLETS PO SCH (10:03)
[2021-09-10] MEDS: PANTOPRAZOLE 40 MG TABLET PO SCH (10:03)
[2021-09-10] MEDS: PRENATAL VITAMINS W/ FOLIC ACID TABLET (FP) PO SCH (10:04)
[2021-09-10] MEDS: METHYL SALICYLATE/MENTHOL OINT 30 GM TUBE TP SCH ×4 (10:04→22:05)
[2021-09-10] MEDS: CYANOCOBALAMIN 1,000 MCG TABLET (FP) PO SCH (10:04)
[2021-09-10] MEDS: NICOTINE 7 MG/24 HOURS TOPICAL PATCH TD SCH (10:04)
[2021-09-10] MEDS: HYDROCHLOROTHIAZIDE 12.5 MG CAPSULE (FP) PO SCH (12:09)
[2021-09-10] MEDS: OLANZapine 10 MG TABLET PO SCH (21:25)
[2021-09-10] MEDS: LIDOCAINE PATCH REMOVAL MC SCH (21:25)
[2021-09-10] MEDS: THIAMINE HCL 100 MG TABLET (FP) PO SCH (21:25)
[2021-09-10] MEDS: SUVOREXANT 15 MG TABLET PO PRN (21:29)
[2021-09-10] MEDS: IBUPROFEN 400 MG TABLET (FP) PO PRN (21:30)
[2021-09-11] MEDS: ACETAMINOPHEN 325 MG TABLET (FP) PO PRN (06:22)
[2021-09-11] MEDS: INSULIN SLIDING SCALE (NOVOLOG) 1 VIAL SQ SCH ×4 (06:24→21:25)
[2021-09-11] MEDS: FERROUS SO4 325 MG TABLET (FP) PO SCH ×3 (07:25→17:21)
[2021-09-11] MEDS ORDERED: INSULIN (NOVOLOG) ASPART 100 UNITS/ML 10ML VIAL ONE ×3 (07:35→16:44)
[2021-09-11] MEDS: NICOTINE 10 MG CARTRIDGE (INHALER) IH PRN (08:56)
[2021-09-11] MEDS: amLODIPine BESYLATE 5 MG TABLET (FP) PO SCH (10:22)
[2021-09-11] MEDS: HYDROCHLOROTHIAZIDE 12.5 MG CAPSULE (FP) PO SCH (10:23)
[2021-09-11] MEDS: PANTOPRAZOLE 40 MG TABLET PO SCH (10:23)
[2021-09-11] MEDS: METHYL SALICYLATE/MENTHOL OINT 30 GM TUBE TP SCH ×4 (10:23→21:22)
[2021-09-11] MEDS: ASPIRIN 81 MG CHEWABLE TABLETS PO SCH (10:23)
[2021-09-11] MEDS: CYANOCOBALAMIN 1,000 MCG TABLET (FP) PO SCH (10:24)
[2021-09-11] MEDS: NICOTINE 7 MG/24 HOURS TOPICAL PATCH TD SCH (10:24)
[2021-09-11] MEDS: PRENATAL VITAMINS W/ FOLIC ACID TABLET (FP) PO SCH (10:24)
[2021-09-11] MEDS: LIDOCAINE 5% TOPICAL PATCH TP SCH (10:25)
[2021-09-11] MEDS: LIDOCAINE PATCH REMOVAL MC SCH (21:23)
[2021-09-11] MEDS: THIAMINE HCL 100 MG TABLET (FP) PO SCH (21:26)
[2021-09-11] MEDS: OLANZapine 10 MG TABLET PO SCH (21:26)
[2021-09-11] MEDS: SUVOREXANT 15 MG TABLET PO PRN (21:28)
[2021-09-12] MEDS ORDERED: INSULIN (NOVOLOG) ASPART 100 UNITS/ML 10ML VIAL ONE ×3 (06:57→16:35)
[2021-09-12] MEDS: INSULIN SLIDING SCALE (NOVOLOG) 1 VIAL SQ SCH ×4 (06:57→21:11)
[2021-09-12] MEDS: FERROUS SO4 325 MG TABLET (FP) PO SCH ×3 (07:06→16:37)
[2021-09-12] MEDS: HYDROCHLOROTHIAZIDE 12.5 MG CAPSULE (FP) PO SCH (09:13)
[2021-09-12] MEDS: LIDOCAINE 5% TOPICAL PATCH TP SCH (09:13)
[2021-09-12] MEDS: METHYL SALICYLATE/MENTHOL OINT 30 GM TUBE TP SCH ×4 (09:13→21:09)
[2021-09-12] MEDS: ASPIRIN 81 MG CHEWABLE TABLETS PO SCH (09:13)
[2021-09-12] MEDS: NICOTINE 7 MG/24 HOURS TOPICAL PATCH TD SCH (09:14)
[2021-09-12] MEDS: PANTOPRAZOLE 40 MG TABLET PO SCH (09:14)
[2021-09-12] MEDS: amLODIPine BESYLATE 5 MG TABLET (FP) PO SCH (09:14)
[2021-09-12] MEDS: PRENATAL VITAMINS W/ FOLIC ACID TABLET (FP) PO SCH (09:14)
[2021-09-12] MEDS: CYANOCOBALAMIN 1,000 MCG TABLET (FP) PO SCH (09:15)
[2021-09-12] MEDS: BACLOFEN 10 MG TABLET (FP) PO PRN (09:15)
[2021-09-12] MEDS: NICOTINE 10 MG CARTRIDGE (INHALER) IH PRN (09:16)
[2021-09-12] MEDS: THIAMINE HCL 100 MG TABLET (FP) PO SCH (21:08)
[2021-09-12] MEDS: LIDOCAINE PATCH REMOVAL MC SCH (21:10)
[2021-09-12] MEDS: OLANZapine 10 MG TABLET PO SCH (21:10)
[2021-09-12] MEDS: SUVOREXANT 15 MG TABLET PO PRN (21:12)
[2021-09-13] MEDS: FERROUS SO4 325 MG TABLET (FP) PO SCH ×3 (07:12→17:15)
[2021-09-13] MEDS: INSULIN SLIDING SCALE (NOVOLOG) 1 VIAL SQ SCH ×4 (07:15→21:16)
[2021-09-13] MEDS ORDERED: INSULIN (NOVOLOG) ASPART 100 UNITS/ML 10ML VIAL ONE ×2 (07:15→11:49)
[2021-09-13] MEDS: METHYL SALICYLATE/MENTHOL OINT 30 GM TUBE TP SCH ×4 (09:44→21:15)
[2021-09-13] MEDS: HYDROCHLOROTHIAZIDE 12.5 MG CAPSULE (FP) PO SCH (09:44)
[2021-09-13] MEDS: LIDOCAINE 5% TOPICAL PATCH TP SCH (09:44)
[2021-09-13] MEDS: PANTOPRAZOLE 40 MG TABLET PO SCH (09:44)
[2021-09-13] MEDS: amLODIPine BESYLATE 5 MG TABLET (FP) PO SCH (09:44)
[2021-09-13] MEDS: ASPIRIN 81 MG CHEWABLE TABLETS PO SCH (09:44)
[2021-09-13] MEDS: PRENATAL VITAMINS W/ FOLIC ACID TABLET (FP) PO SCH (09:44)
[2021-09-13] MEDS: CYANOCOBALAMIN 1,000 MCG TABLET (FP) PO SCH (09:45)
[2021-09-13] MEDS: NICOTINE 7 MG/24 HOURS TOPICAL PATCH TD SCH (09:45)
[2021-09-13] MEDS: ACETAMINOPHEN 325 MG TABLET (FP) PO PRN (09:47)
[2021-09-13] MEDS: NICOTINE 10 MG CARTRIDGE (INHALER) IH PRN ×2 (09:47→14:19)
[2021-09-13] MEDS: THIAMINE HCL 100 MG TABLET (FP) PO SCH (21:13)
[2021-09-13] MEDS: LIDOCAINE PATCH REMOVAL MC SCH (21:15)
[2021-09-13] MEDS: OLANZapine 10 MG TABLET PO SCH (21:17)
[2021-09-13] MEDS ORDERED: SUVOREXANT 10 MG TABLET PO PRN (22:00)
[2021-09-14] MEDS: INSULIN SLIDING SCALE (NOVOLOG) 1 VIAL SQ SCH ×4 (06:11→21:31)
[2021-09-14] MEDS: FERROUS SO4 325 MG TABLET (FP) PO SCH ×3 (07:16→17:10)
[2021-09-14] MEDS ORDERED: INSULIN (NOVOLOG) ASPART 100 UNITS/ML 10ML VIAL ONE ×4 (07:21→23:40)
[2021-09-14] MEDS: HYDROCHLOROTHIAZIDE 12.5 MG CAPSULE (FP) PO SCH (09:44)
[2021-09-14] MEDS: METHYL SALICYLATE/MENTHOL OINT 30 GM TUBE TP SCH ×4 (09:44→21:32)
[2021-09-14] MEDS: ASPIRIN 81 MG CHEWABLE TABLETS PO SCH (09:44)
[2021-09-14] MEDS: NICOTINE 7 MG/24 HOURS TOPICAL PATCH TD SCH (09:45)
[2021-09-14] MEDS: amLODIPine BESYLATE 5 MG TABLET (FP) PO SCH (09:45)
[2021-09-14] MEDS: LIDOCAINE 5% TOPICAL PATCH TP SCH (09:45)
[2021-09-14] MEDS: PRENATAL VITAMINS W/ FOLIC ACID TABLET (FP) PO SCH (09:46)
[2021-09-14] MEDS: PANTOPRAZOLE 40 MG TABLET PO SCH (09:46)
[2021-09-14] MEDS: BACLOFEN 10 MG TABLET (FP) PO PRN (09:46)
[2021-09-14] MEDS: CYANOCOBALAMIN 1,000 MCG TABLET (FP) PO SCH (09:47)
[2021-09-14] MEDS: THIAMINE HCL 100 MG TABLET (FP) PO SCH (21:32)
[2021-09-14] MEDS: LIDOCAINE PATCH REMOVAL MC SCH (21:32)
[2021-09-14] MEDS: OLANZapine 10 MG TABLET PO SCH (21:33)
[2021-09-14] MEDS ORDERED: SUVOREXANT 15 MG TABLET PO PRN (21:42)
[2021-09-15] MEDS: INSULIN SLIDING SCALE (NOVOLOG) 1 VIAL SQ SCH ×4 (06:13→22:47)
[2021-09-15] MEDS ORDERED: INSULIN (NOVOLOG) ASPART 100 UNITS/ML 10ML VIAL ONE ×2 (06:14→11:53)
[2021-09-15] MEDS: FERROUS SO4 325 MG TABLET (FP) PO SCH ×3 (07:04→17:45)
[2021-09-15] MEDS: HYDROCHLOROTHIAZIDE 12.5 MG CAPSULE (FP) PO SCH (09:55)
[2021-09-15] MEDS: ASPIRIN 81 MG CHEWABLE TABLETS PO SCH (09:55)
[2021-09-15] MEDS: PRENATAL VITAMINS W/ FOLIC ACID TABLET (FP) PO SCH (09:55)
[2021-09-15] MEDS: amLODIPine BESYLATE 5 MG TABLET (FP) PO SCH (09:55)
[2021-09-15] MEDS: PANTOPRAZOLE 40 MG TABLET PO SCH (09:55)
[2021-09-15] MEDS: LIDOCAINE 5% TOPICAL PATCH TP SCH (09:56)
[2021-09-15] MEDS: METHYL SALICYLATE/MENTHOL OINT 30 GM TUBE TP SCH ×4 (09:56→22:56)
[2021-09-15] MEDS: CYANOCOBALAMIN 1,000 MCG TABLET (FP) PO SCH (09:56)
[2021-09-15] MEDS: NICOTINE 7 MG/24 HOURS TOPICAL PATCH TD SCH (09:56)
[2021-09-15] MEDS: NICOTINE 10 MG CARTRIDGE (INHALER) IH PRN (11:54)
[2021-09-15] MEDS: OLANZapine 10 MG TABLET PO SCH (21:48)
[2021-09-15] MEDS: THIAMINE HCL 100 MG TABLET (FP) PO SCH (21:49)
[2021-09-15] MEDS: LIDOCAINE PATCH REMOVAL MC SCH (22:56)
[2021-09-16] MEDS: INSULIN SLIDING SCALE (NOVOLOG) 1 VIAL SQ SCH (06:22)
[2021-09-16] MEDS ORDERED: INSULIN (NOVOLOG) ASPART 100 UNITS/ML 10ML VIAL ONE (06:22)
[2021-09-16 06:37] VITALS: TEMP 97.1
[2021-09-16] MEDS: FERROUS SO4 325 MG TABLET (FP) PO SCH (07:31)
[2021-09-16] MEDS: NICOTINE 10 MG CARTRIDGE (INHALER) IH PRN (08:41)
[2021-09-16 09:09] VITALS: BP 150/78; PULSE 80
[2021-09-16] MEDS: amLODIPine BESYLATE 5 MG TABLET (FP) PO SCH (09:25)
[2021-09-16] MEDS: PANTOPRAZOLE 40 MG TABLET PO SCH (09:25)
[2021-09-16] MEDS: PRENATAL VITAMINS W/ FOLIC ACID TABLET (FP) PO SCH (09:26)
[2021-09-16] MEDS: CYANOCOBALAMIN 1,000 MCG TABLET (FP) PO SCH (09:26)
[2021-09-16] MEDS: LIDOCAINE 5% TOPICAL PATCH TP SCH (09:26)
[2021-09-16] MEDS: ASPIRIN 81 MG CHEWABLE TABLETS PO SCH (09:26)
[2021-09-16] MEDS: HYDROCHLOROTHIAZIDE 12.5 MG CAPSULE (FP) PO SCH (09:26)
[2021-09-16] MEDS: NICOTINE 7 MG/24 HOURS TOPICAL PATCH TD SCH (09:27)
[2021-09-16] MEDS: METHYL SALICYLATE/MENTHOL OINT 30 GM TUBE TP SCH (09:27)
== END 2021-09-16 09:29 | disposition home or self-care (01) | DRG 772 ==
LOC: YASAS 13:33 → Y3E 17:33
PROVIDERS: ADMIT Allergy & Immunology; ATTEND Allergy & Immunology
PROC: HZ42ZZZ Group Counseling for Substance Abuse Treatment, Cognitive-Behavioral (ICD-10-PCS; principal; 2021-09-02)
DX: F10.20 Alcohol dependence, uncomplicated (principal); F10.282 Alcohol dependence with alcohol-induced sleep disorder; F17.210 Nicotine dependence, cigarettes, uncomplicated; F25.0 Schizoaffective disorder, bipolar type; I10 Essential (primary) hypertension; D64.9 Anemia, unspecified; J44.9 Chronic obstructive pulmonary disease, unspecified; H91.92 Unspecified hearing loss, left ear; R60.0 Localized edema; I83.892 Varicose veins of left lower extremity with other complications; M17.0 Bilateral primary osteoarthritis of knee; M10.9 Gout, unspecified; R73.03 Prediabetes; Z86.11 Personal history of tuberculosis; Z56.0 Unemployment, unspecified; Z59.00 Homelessness unspecified
CPT/HCPCS: 36415; 73560-TC-LT-FY; 73590-TC-LT-FY; 80053; 82962; 85025; C9803-CS; J0475; U0003; U0005

== ENCOUNTER 2021-10-06 19:54 | Inpatient (IN) | payer OTHER ==
[2021-10-06] MEDS ORDERED: ACETAMINOPHEN 325 MG TABLET (FP) PO PRN (20:27)
[2021-10-06] MEDS ORDERED: METHOCARBAMOL 500 MG TABLET PO PRN (20:27)
[2021-10-06] MEDS ORDERED: BENZOCAINE/MENTHOL (CHLORASEPTIC ) LOZENGE MM PRN (20:27)
[2021-10-06] MEDS ORDERED: MAGNESIUM CITRATE 300 ML BOTTLE PO PRN (20:27)
[2021-10-06] MEDS ORDERED: MAGNESIUM HYDROX 2400MG/30ML ORAL SUSPENSION 30 ML CUP PO PRN (20:27)
[2021-10-06] MEDS ORDERED: LOPERAMIDE HCL 2 MG CAPSULE PO PRN (20:27)
[2021-10-06] MEDS ORDERED: hydrOXYzine PAMOATE 25 MG CAPSULE (FP) PO PRN (20:27)
[2021-10-06] MEDS ORDERED: DICYCLOMINE HCL 10 MG CAPSULE PO PRN (20:27)
[2021-10-06] MEDS ORDERED: MELATONIN 5 MG TABLETS PO PRN (20:27)
[2021-10-06] MEDS ORDERED: BISMUTH SUBSALICYLATE 524 MG/30 ML PO PRN (20:27)
[2021-10-06] MEDS ORDERED: IBUPROFEN 400 MG TABLET (FP) PO PRN (20:27)
[2021-10-06] MEDS ORDERED: MAG HYDROX/AL HYDROX/SIMETH 30 ML UNIT-DOSE CUP PO PRN (20:27)
[2021-10-06] MEDS ORDERED: ONDANSETRON *ODT* 4 MG TABLET SL PRN (20:27)
[2021-10-07] MEDS: diazePAM 5 MG TABLET PO SCH ×5 (03:32→22:30)
[2021-10-07] MEDS: THIAMINE HCL 100 MG TABLET (FP) PO SCH ×2 (03:32→22:27)
[2021-10-07] MEDS: amLODIPine BESYLATE 5 MG TABLET (FP) PO SCH ×2 (03:33→12:23)
[2021-10-07 04:01] VITALS: BMI 24.0
[2021-10-07] MEDS ORDERED: diazePAM 5 MG TABLET ONE (04:01)
[2021-10-07 12:20] LABS: ALBUMIN 3.5 g/dl (3.4-5.0)
[2021-10-07 12:21] LABS: HEMATOCRIT 34.9 % (35.4-49); HEMOGLOBIN 11.3 GM/dL (11.7-16.9); MCH 28.7 pg (25.7-33.7); MCHC 32.5 g/dl (32.0-35.9); MEAN CELL VOLUME 88.5 fl (80-96); MEAN PLT VOLUME 9.7 fl (7.5-11.1); PLATELET COUNT 143 10^3/uL (134-434); RBC 3.94 M/mm3 (4.00-5.60); RDW 15.1 % (11.9-15.9); WHITE BLOOD COUNT 2.5 K/mm3 (4.0-10.0)
[2021-10-07] MEDS: ASPIRIN 81 MG CHEWABLE TABLETS PO SCH (12:23)
[2021-10-07] MEDS: PRENATAL VITAMINS W/ FOLIC ACID TABLET (FP) PO SCH (12:23)
[2021-10-07 12:24] LABS: CREATININE 0.6 mg/dL (0.55-1.3)
[2021-10-07 12:26] LABS: BILIRUBIN,TOTAL 0.5 mg/dL (0.2-1); TOT PROT 7.3 g/dl (6.4-8.2)
[2021-10-07] MEDS ORDERED: COLLOIDAL OATMEAL 1 BAR EACH TP PRN (13:38)
[2021-10-07] MEDS: SUVOREXANT 10 MG TABLET PO PRN (22:30)
[2021-10-07] MEDS: OLANZapine 10 MG TABLET PO SCH (22:32)
[2021-10-08] MEDS: diazePAM 5 MG TABLET PO SCH ×3 (05:07→22:29)
[2021-10-08] MEDS: diazePAM 5 MG TABLET PO PRN (10:09)
[2021-10-08] MEDS: ASPIRIN 81 MG CHEWABLE TABLETS PO SCH (10:09)
[2021-10-08] MEDS: amLODIPine BESYLATE 5 MG TABLET (FP) PO SCH (10:09)
[2021-10-08] MEDS: METHYL SALICYLATE/MENTHOL OINT 30 GM TUBE TP SCH ×2 (10:09→22:25)
[2021-10-08] MEDS: PRENATAL VITAMINS W/ FOLIC ACID TABLET (FP) PO SCH (10:09)
[2021-10-08 14:12] LABS: SARS-CoV-2 NAA Not Detected (Not Detected)
[2021-10-08] MEDS: ACETAMINOPHEN 325 MG TABLET (FP) PO PRN (22:26)
[2021-10-08] MEDS: OLANZapine 10 MG TABLET PO SCH (22:28)
[2021-10-08] MEDS: THIAMINE HCL 100 MG TABLET (FP) PO SCH (22:30)
[2021-10-08] MEDS: SUVOREXANT 10 MG TABLET PO PRN (22:30)
[2021-10-09] MEDS: diazePAM 5 MG TABLET PO SCH ×2 (05:13→18:00)
[2021-10-09] MEDS ORDERED: NICOTINE 10 MG CARTRIDGE (INHALER) IH PRN (09:49)
[2021-10-09] MEDS: ASPIRIN 81 MG CHEWABLE TABLETS PO SCH (10:39)
[2021-10-09] MEDS: PRENATAL VITAMINS W/ FOLIC ACID TABLET (FP) PO SCH (10:39)
[2021-10-09] MEDS: METHYL SALICYLATE/MENTHOL OINT 30 GM TUBE TP SCH ×2 (10:40→22:15)
[2021-10-09] MEDS: amLODIPine BESYLATE 5 MG TABLET (FP) PO SCH (10:40)
[2021-10-09] MEDS: diazePAM 5 MG TABLET PO PRN (10:42)
[2021-10-09] MEDS: ACETAMINOPHEN 325 MG TABLET (FP) PO PRN ×2 (10:43→18:32)
[2021-10-09] MEDS: NICOTINE 14 MG/24 HOURS TOPICAL PATCH TD SCH (10:52)
[2021-10-09 14:09] LABS: SARS-CoV-2 NAA Not Detected (Not Detected)
[2021-10-09] MEDS: OLANZapine 10 MG TABLET PO SCH (22:15)
[2021-10-09] MEDS: THIAMINE HCL 100 MG TABLET (FP) PO SCH (22:15)
[2021-10-09] MEDS: SUVOREXANT 10 MG TABLET PO PRN (22:15)
[2021-10-10] MEDS: ACETAMINOPHEN 325 MG TABLET (FP) PO PRN (05:00)
[2021-10-10] MEDS ORDERED: diazePAM 5 MG TABLET PO ONE (06:00)
[2021-10-10 08:47] VITALS: BP 132/73; PULSE 74; TEMP 97.1
[2021-10-10] MEDS: METHYL SALICYLATE/MENTHOL OINT 30 GM TUBE TP SCH (09:21)
[2021-10-10] MEDS: ASPIRIN 81 MG CHEWABLE TABLETS PO SCH (09:21)
[2021-10-10] MEDS: amLODIPine BESYLATE 5 MG TABLET (FP) PO SCH (09:21)
[2021-10-10] MEDS: NICOTINE 14 MG/24 HOURS TOPICAL PATCH TD SCH (09:21)
[2021-10-10] MEDS: PRENATAL VITAMINS W/ FOLIC ACID TABLET (FP) PO SCH (09:23)
== END 2021-10-10 09:48 | disposition home or self-care (01) | DRG 775 ==
LOC: YASAS 19:54 → Y6N 10-07 11:48
PROVIDERS: ADMIT Allergy & Immunology; ATTEND Allergy & Immunology
PROC: HZ2ZZZZ Detoxification Services for Substance Abuse Treatment (ICD-10-PCS; principal; 2021-10-08)
DX: F10.230 Alcohol dependence with withdrawal, uncomplicated (principal); F12.20 Cannabis dependence, uncomplicated; F17.210 Nicotine dependence, cigarettes, uncomplicated; F10.282 Alcohol dependence with alcohol-induced sleep disorder; F10.280 Alcohol dependence with alcohol-induced anxiety disorder; F10.24 Alcohol dependence with alcohol-induced mood disorder; F19.24 Other psychoactive substance dependence with psychoactive substance-induced mood disorder; F31.9 Bipolar disorder, unspecified; F25.9 Schizoaffective disorder, unspecified; I10 Essential (primary) hypertension; J44.9 Chronic obstructive pulmonary disease, unspecified; M17.0 Bilateral primary osteoarthritis of knee; D50.9 Iron deficiency anemia, unspecified; K21.9 Gastro-esophageal reflux disease without esophagitis; M54.50 Low back pain, unspecified; G89.29 Other chronic pain
CPT/HCPCS: 36415; 73562-TC-LT-FY; 80053; 85027; 86780; C9803-CS; U0003; U0005

== ENCOUNTER 2021-11-14 17:28 | Emergency (ER) | payer OTHER ==
[2021-11-14 17:48] VITALS: BP 118/68; PULSE 88; TEMP 97; BMI 22.6
[2021-11-14] MEDS ORDERED: ACETAMINOPHEN 500 MG TABLET (FP) PO ONE (18:24)
[2021-11-14] MEDS ORDERED: ACETAMINOPHEN 325 MG TABLET (FP) ONE (18:32)
== END 2021-11-14 22:16 | disposition home or self-care (01) ==
LOC: JER 17:28
DX: S09.90XA Unspecified injury of head, initial encounter (principal); R07.82 Intercostal pain; F10.129 Alcohol abuse with intoxication, unspecified; W01.0XXA Fall on same level from slipping, tripping and stumbling without subsequent striking against object, initial encounter
CPT/HCPCS: 70450-TC; 71101-TC-RT-FY; 72125-TC; 99285-25

== ENCOUNTER 2022-01-22 12:04 | Emergency (ER) | payer OTHER ==
[2022-01-22 12:26] VITALS: BP 141/82; PULSE 101; RESP 19; TEMP 98.4; BMI 24.2
[2022-01-22] MEDS ORDERED: KETOROLAC TROMETHAMINE 30 MG/1 ML VIAL ONE (13:53)
[2022-01-22] MEDS ORDERED: KETOROLAC TROMETHAMINE 30 MG/1 ML VIAL IVPUSH ONE (14:04)
[2022-01-22] MEDS ORDERED: FOLIC ACID INJECTION - 1 MG, THIAMINE HCL 100 MG, MULTIVIT INJECTION ADULT 10 ML in SOD... IVPB ONE (14:04)
== END 2022-01-22 19:15 | disposition home or self-care (01) ==
LOC: JER 12:04
PROC: 3E033GC Introduction of Other Therapeutic Substance into Peripheral Vein, Percutaneous Approach (ICD-10-PCS; principal; 2022-01-22)
PROC: 3E0333Z Introduction of Anti-inflammatory into Peripheral Vein, Percutaneous Approach (ICD-10-PCS; 2022-01-22)
DX: F10.10 Alcohol abuse, uncomplicated (principal); G89.29 Other chronic pain; M1A.4 Other secondary chronic gout
CPT/HCPCS: 73562-TC-LT-FY; 82962; 99284-25

== ENCOUNTER 2022-02-22 00:43 | Inpatient (IN) | payer OTHER ==
[2022-02-22 01:03] VITALS: RESP 18; BMI 22.1
[2022-02-22] MEDS ORDERED: ACETAMINOPHEN 325 MG TABLET (FP) PO PRN ×2 (01:36)
[2022-02-22] MEDS ORDERED: NICOTINE POLACRILEX 2 MG GUM BUC PRN (01:36)
[2022-02-22] MEDS ORDERED: BENZOCAINE/MENTHOL (CHLORASEPTIC ) LOZENGE MM PRN (01:36)
[2022-02-22] MEDS ORDERED: IBUPROFEN 600 MG TABLET (FP) PO PRN (01:36)
[2022-02-22] MEDS ORDERED: BISMUTH SUBSALICYLATE 524 MG/30 ML PO PRN (01:36)
[2022-02-22] MEDS ORDERED: MAGNESIUM CITRATE 300 ML BOTTLE PO PRN (01:36)
[2022-02-22] MEDS ORDERED: ONDANSETRON *ODT* 4 MG TABLET SL PRN (01:36)
[2022-02-22] MEDS ORDERED: MAG HYDROX/AL HYDROX/SIMETH 30 ML UNIT-DOSE CUP PO PRN (01:36)
[2022-02-22] MEDS ORDERED: IBUPROFEN 400 MG TABLET (FP) PO PRN (01:36)
[2022-02-22] MEDS ORDERED: DICYCLOMINE HCL 10 MG CAPSULE PO PRN (01:36)
[2022-02-22] MEDS ORDERED: MAGNESIUM HYDROX 2400MG/30ML ORAL SUSPENSION 30 ML CUP PO PRN (01:36)
[2022-02-22] MEDS ORDERED: LOPERAMIDE HCL 2 MG CAPSULE PO PRN (01:36)
[2022-02-22] MEDS ORDERED: METHOCARBAMOL 500 MG TABLET PO PRN (01:36)
[2022-02-22] MEDS ORDERED: chlordiazePOXIDE HCL 25 MG CAPSULE PO PRN (02:42)
[2022-02-22] MEDS: chlordiazePOXIDE HCL 25 MG CAPSULE PO SCH ×2 (05:56→11:27)
[2022-02-22 09:27] VITALS: BP 106/59; PULSE 54; TEMP 97.3
[2022-02-22] MEDS ORDERED: PRENATAL VITAMINS W/ FOLIC ACID TABLET (FP) PO SCH (10:00)
[2022-02-22] MEDS ORDERED: NICOTINE 14 MG/24 HOURS TOPICAL PATCH TD SCH (10:00)
[2022-02-22 12:04] LABS: ALBUMIN 3.2 g/dl (3.4-5.0); BLOOD UREA NITROGEN 6.4 mg/dL (7-18); CALCIUM 8.7 mg/dL (8.5-10.1)
[2022-02-22 12:07] LABS: CREATININE 0.7 mg/dL (0.55-1.3)
[2022-02-22 12:08] LABS: BILIRUBIN,TOTAL 0.5 mg/dL (0.2-1); TOT PROT 6.8 g/dl (6.4-8.2)
[2022-02-22 12:12] LABS: HEMATOCRIT 34.8 % (35.4-49); HEMOGLOBIN 11.9 GM/dL (11.7-16.9); MCH 31.6 pg (25.7-33.7); MCHC 34.1 g/dl (32.0-35.9); MEAN CELL VOLUME 92.7 fl (80-96); MEAN PLT VOLUME 8.7 fl (7.5-11.1); PLATELET COUNT 120 10^3/uL (134-434); RBC 3.75 M/mm3 (4.00-5.60); RDW 13.5 % (11.9-15.9); WHITE BLOOD COUNT 2.1 K/mm3 (4.0-10.0)
[2022-02-22] MEDS ORDERED: THIAMINE HCL 100 MG TABLET (FP) PO SCH (22:00)
[2022-02-22] MEDS ORDERED: MELATONIN 5 MG TABLETS PO SCH (22:00)
[2022-02-23] MEDS ORDERED: chlordiazePOXIDE HCL 25 MG CAPSULE PO SCH (05:00)
[2022-02-24] MEDS ORDERED: chlordiazePOXIDE HCL 10 MG CAPSULE PO PRN
[2022-02-24] MEDS ORDERED: chlordiazePOXIDE HCL 10 MG CAPSULE PO SCH (05:00)
[2022-02-25] MEDS ORDERED: chlordiazePOXIDE HCL 10 MG CAPSULE PO SCH (05:00)
[2022-02-26] MEDS ORDERED: chlordiazePOXIDE HCL 10 MG CAPSULE PO ONE (05:00)
== END 2022-02-22 11:04 | disposition left against medical advice (07) | DRG 770 ==
LOC: YASAS 00:43 → Y3N 01:17
PROVIDERS: ADMIT Allergy & Immunology; ATTEND Surgery
PROC: HZ2ZZZZ Detoxification Services for Substance Abuse Treatment (ICD-10-PCS; principal; 2022-02-22)
DX: F10.230 Alcohol dependence with withdrawal, uncomplicated (principal); F12.20 Cannabis dependence, uncomplicated; F25.0 Schizoaffective disorder, bipolar type; F10.280 Alcohol dependence with alcohol-induced anxiety disorder; U07.1 COVID-19; I10 Essential (primary) hypertension; K22.9 Disease of esophagus, unspecified; J44.9 Chronic obstructive pulmonary disease, unspecified; D50.9 Iron deficiency anemia, unspecified; M17.0 Bilateral primary osteoarthritis of knee; M54.50 Low back pain, unspecified; G89.29 Other chronic pain
CPT/HCPCS: 36415; 80053; 85027; 86780

== ENCOUNTER 2022-03-24 21:52 | Inpatient (IN) | payer OTHER ==
[2022-03-24 22:18] VITALS: BMI 20.5
[2022-03-24] MEDS ORDERED: BENZOCAINE/MENTHOL (CHLORASEPTIC ) LOZENGE MM PRN (23:51)
[2022-03-24] MEDS ORDERED: DICYCLOMINE HCL 10 MG CAPSULE PO PRN (23:51)
[2022-03-24] MEDS ORDERED: BISMUTH SUBSALICYLATE 524 MG/30 ML PO PRN (23:51)
[2022-03-24] MEDS ORDERED: P-EPHED 60MG/TRIPROLIDI 2.5MG TABLET PO PRN (23:51)
[2022-03-24] MEDS ORDERED: guaiFENesin 200 MG/10 ML 10 ML UNIT-DOSE CUPS PO PRN (23:51)
[2022-03-24] MEDS ORDERED: LOPERAMIDE HCL 2 MG CAPSULE PO PRN (23:51)
[2022-03-24] MEDS ORDERED: MAG HYDROX/AL HYDROX/SIMETH 30 ML UNIT-DOSE CUP PO PRN (23:51)
[2022-03-24] MEDS ORDERED: NALOXONE HCL (KLOXXADO) 8 MG SPRAY NS PRN (23:51)
[2022-03-24] MEDS ORDERED: ONDANSETRON *ODT* 4 MG TABLET SL PRN (23:51)
[2022-03-24] MEDS ORDERED: MAGNESIUM CITRATE 300 ML BOTTLE PO PRN (23:51)
[2022-03-24] MEDS ORDERED: ACETAMINOPHEN 325 MG TABLET (FP) PO PRN (23:51)
[2022-03-24] MEDS ORDERED: IBUPROFEN 400 MG TABLET (FP) PO PRN (23:51)
[2022-03-24] MEDS ORDERED: NICOTINE POLACRILEX 2 MG GUM BUC PRN (23:51)
[2022-03-24] MEDS ORDERED: MAGNESIUM HYDROX 2400MG/30ML ORAL SUSPENSION 30 ML CUP PO PRN (23:51)
[2022-03-25] MEDS ORDERED: NICOTINE 14 MG/24 HOURS TOPICAL PATCH TD SCH (10:00)
[2022-03-25 10:15] LABS: HEMATOCRIT 38.3 % (35.4-49); HEMOGLOBIN 12.7 GM/dL (11.7-16.9); MCH 30.6 pg (25.7-33.7); MCHC 33.1 g/dl (32.0-35.9); MEAN CELL VOLUME 92.7 fl (80-96); MEAN PLT VOLUME 9.4 fl (7.5-11.1); PLATELET COUNT 123 10^3/uL (134-434); RBC 4.13 M/mm3 (4.00-5.60); RDW 13.6 % (11.9-15.9); WHITE BLOOD COUNT 2.4 K/mm3 (4.0-10.0)
[2022-03-25 11:10] LABS: ALBUMIN 3.4 g/dl (3.4-5.0); BLOOD UREA NITROGEN 10.6 mg/dL (7-18); CALCIUM 8.6 mg/dL (8.5-10.1)
[2022-03-25 11:13] LABS: CREATININE 0.6 mg/dL (0.55-1.3)
[2022-03-25] MEDS: PRENATAL VITAMINS W/ FOLIC ACID TABLET (FP) PO SCH (12:11)
[2022-03-25] MEDS: METHOCARBAMOL 500 MG TABLET PO PRN (17:31)
[2022-03-25] MEDS: hydrOXYzine PAMOATE 25 MG CAPSULE (FP) PO PRN ×2 (17:31→22:00)
[2022-03-25] MEDS: OLANZapine 10 MG TABLET PO SCH (22:00)
[2022-03-25] MEDS: MELATONIN 5 MG TABLETS PO SCH (22:00)
[2022-03-25] MEDS: THIAMINE HCL 100 MG TABLET (FP) PO SCH (22:00)
[2022-03-26] MEDS ORDERED: LORazepam 1 MG TABLET PO PRN (09:56)
[2022-03-26] MEDS: ASPIRIN 81 MG CHEWABLE TABLETS PO SCH (10:11)
[2022-03-26] MEDS: amLODIPine BESYLATE 5 MG TABLET (FP) PO SCH (10:11)
[2022-03-26] MEDS: PRENATAL VITAMINS W/ FOLIC ACID TABLET (FP) PO SCH (10:11)
[2022-03-26] MEDS: PANTOPRAZOLE 40 MG TABLET PO SCH (10:11)
[2022-03-26] MEDS: LORazepam 2 MG TABLET PO SCH ×3 (10:13→22:14)
[2022-03-26] MEDS ORDERED: amLODIPine BESYLATE 5 MG TABLET (FP) PO ONE (13:02)
[2022-03-26] MEDS: METHYL SALICYLATE/MENTHOL OINT 30 GM TUBE TP SCH ×2 (15:52→22:56)
[2022-03-26] MEDS: METHOCARBAMOL 500 MG TABLET PO PRN (17:37)
[2022-03-26 18:52] LABS: URINE APPEARANCE CLEAR; URINE BILIRUBIN NEGATIVE (NEGATIVE); URINE COLOR DK YELLOW; URINE GLUCOSE (UA) NEGATIVE (NEGATIVE); URINE KETONE NEGATIVE (NEGATIVE); URINE LEUK ESTERASE NEGATIVE (NEGATIVE); URINE NITRITE NEGATIVE (NEGATIVE); URINE PROTEIN NEGATIVE (NEGATIVE)
[2022-03-26] MEDS: OLANZapine 10 MG TABLET PO SCH (22:13)
[2022-03-26] MEDS: THIAMINE HCL 100 MG TABLET (FP) PO SCH (22:13)
[2022-03-26] MEDS: MELATONIN 5 MG TABLETS PO SCH (22:13)
[2022-03-26] MEDS: hydrOXYzine PAMOATE 25 MG CAPSULE (FP) PO PRN (22:15)
[2022-03-27] MEDS: LORazepam 2 MG TABLET PO SCH ×4 (06:08→22:32)
[2022-03-27] MEDS: PRENATAL VITAMINS W/ FOLIC ACID TABLET (FP) PO SCH (10:06)
[2022-03-27] MEDS: PANTOPRAZOLE 40 MG TABLET PO SCH (10:06)
[2022-03-27] MEDS: METHYL SALICYLATE/MENTHOL OINT 30 GM TUBE TP SCH ×2 (10:06→22:34)
[2022-03-27] MEDS: ASPIRIN 81 MG CHEWABLE TABLETS PO SCH (10:06)
[2022-03-27] MEDS: amLODIPine BESYLATE 5 MG TABLET (FP) PO SCH (10:06)
[2022-03-27] MEDS: IBUPROFEN 600 MG TABLET (FP) PO PRN ×2 (11:55→22:32)
[2022-03-27] MEDS: hydrOXYzine PAMOATE 25 MG CAPSULE (FP) PO PRN ×3 (13:12→22:32)
[2022-03-27] MEDS: THIAMINE HCL 100 MG TABLET (FP) PO SCH (22:30)
[2022-03-27] MEDS: OLANZapine 10 MG TABLET PO SCH (22:30)
[2022-03-27] MEDS: MELATONIN 5 MG TABLETS PO SCH (22:30)
[2022-03-28] MEDS: LORazepam 1 MG TABLET PO SCH ×4 (06:02→22:10)
[2022-03-28] MEDS: PRENATAL VITAMINS W/ FOLIC ACID TABLET (FP) PO SCH (10:18)
[2022-03-28] MEDS: METHYL SALICYLATE/MENTHOL OINT 30 GM TUBE TP SCH ×2 (10:18→22:10)
[2022-03-28] MEDS: ACETAMINOPHEN 325 MG TABLET (FP) PO PRN (10:19)
[2022-03-28] MEDS: ASPIRIN 81 MG CHEWABLE TABLETS PO SCH (10:19)
[2022-03-28] MEDS: PANTOPRAZOLE 40 MG TABLET PO SCH (10:19)
[2022-03-28] MEDS: amLODIPine BESYLATE 5 MG TABLET (FP) PO SCH (10:19)
[2022-03-28] MEDS: METHOCARBAMOL 500 MG TABLET PO PRN (18:23)
[2022-03-28] MEDS: MELATONIN 5 MG TABLETS PO SCH (22:10)
[2022-03-28] MEDS: OLANZapine 10 MG TABLET PO SCH (22:10)
[2022-03-28] MEDS: THIAMINE HCL 100 MG TABLET (FP) PO SCH (22:10)
[2022-03-28] MEDS: hydrOXYzine PAMOATE 25 MG CAPSULE (FP) PO PRN (22:10)
[2022-03-29] MEDS ORDERED: LORazepam 0.5 MG TABLET PO PRN
[2022-03-29] MEDS: LORazepam 0.5 MG TABLET PO SCH ×4 (05:37→22:19)
[2022-03-29] MEDS: METHYL SALICYLATE/MENTHOL OINT 30 GM TUBE TP SCH ×2 (10:08→22:18)
[2022-03-29] MEDS: ASPIRIN 81 MG CHEWABLE TABLETS PO SCH (10:08)
[2022-03-29] MEDS: amLODIPine BESYLATE 5 MG TABLET (FP) PO SCH (10:08)
[2022-03-29] MEDS: PRENATAL VITAMINS W/ FOLIC ACID TABLET (FP) PO SCH (10:08)
[2022-03-29] MEDS: PANTOPRAZOLE 40 MG TABLET PO SCH (10:08)
[2022-03-29] MEDS: ACETAMINOPHEN 325 MG TABLET (FP) PO PRN (14:37)
[2022-03-29] MEDS: IBUPROFEN 600 MG TABLET (FP) PO PRN (17:59)
[2022-03-29] MEDS: MELATONIN 5 MG TABLETS PO SCH (22:18)
[2022-03-29] MEDS: hydrOXYzine PAMOATE 25 MG CAPSULE (FP) PO PRN (22:18)
[2022-03-29] MEDS: THIAMINE HCL 100 MG TABLET (FP) PO SCH (22:19)
[2022-03-29] MEDS: OLANZapine 10 MG TABLET PO SCH (22:19)
[2022-03-29] MEDS: METHOCARBAMOL 500 MG TABLET PO PRN (22:19)
[2022-03-30] MEDS ORDERED: LORazepam 0.5 MG TABLET PO ONE (05:00)
[2022-03-30] MEDS: PANTOPRAZOLE 40 MG TABLET PO SCH (10:07)
[2022-03-30] MEDS: METHYL SALICYLATE/MENTHOL OINT 30 GM TUBE TP SCH (10:07)
[2022-03-30] MEDS: amLODIPine BESYLATE 5 MG TABLET (FP) PO SCH (10:07)
[2022-03-30] MEDS: ASPIRIN 81 MG CHEWABLE TABLETS PO SCH (10:07)
[2022-03-30] MEDS: PRENATAL VITAMINS W/ FOLIC ACID TABLET (FP) PO SCH (10:07)
[2022-03-30 17:38] VITALS: BP 152/80; PULSE 89; RESP 18; TEMP 97.7
== END 2022-03-30 20:00 | disposition other institution (70) | DRG 775 ==
LOC: YASAS 21:52 → Y3N 03-25 11:33
PROVIDERS: ADMIT Allergy & Immunology; ATTEND Surgery
PROC: HZ2ZZZZ Detoxification Services for Substance Abuse Treatment (ICD-10-PCS; principal; 2022-03-25)
DX: F10.230 Alcohol dependence with withdrawal, uncomplicated (principal); F12.20 Cannabis dependence, uncomplicated; F17.210 Nicotine dependence, cigarettes, uncomplicated; F10.282 Alcohol dependence with alcohol-induced sleep disorder; F19.24 Other psychoactive substance dependence with psychoactive substance-induced mood disorder; F25.0 Schizoaffective disorder, bipolar type; F31.9 Bipolar disorder, unspecified; I10 Essential (primary) hypertension; K21.9 Gastro-esophageal reflux disease without esophagitis; H91.92 Unspecified hearing loss, left ear; M10.9 Gout, unspecified; M17.0 Bilateral primary osteoarthritis of knee; M54.50 Low back pain, unspecified; G89.29 Other chronic pain; R73.03 Prediabetes
CPT/HCPCS: 36415; 71046-TC-FY; 80053; 81003; 85027; 86780; C9803-CS; U0003; U0005

== ENCOUNTER 2022-03-30 20:08 | Inpatient (IN) | payer OTHER ==
[2022-03-30] MEDS ORDERED: LOPERAMIDE HCL 2 MG CAPSULE PO PRN (22:42)
[2022-03-30] MEDS ORDERED: MAGNESIUM HYDROX 2400MG/30ML ORAL SUSPENSION 30 ML CUP PO PRN (22:42)
[2022-03-30] MEDS ORDERED: guaiFENesin 200 MG/10 ML 10 ML UNIT-DOSE CUPS PO PRN (22:42)
[2022-03-30] MEDS ORDERED: IBUPROFEN 400 MG TABLET (FP) PO PRN (22:42)
[2022-03-30] MEDS ORDERED: MAGNESIUM CITRATE 300 ML BOTTLE PO PRN (22:42)
[2022-03-30] MEDS ORDERED: BENZOCAINE/MENTHOL (CHLORASEPTIC ) LOZENGE MM PRN (22:42)
[2022-03-30] MEDS ORDERED: NICOTINE POLACRILEX 2 MG GUM BUC PRN (22:42)
[2022-03-30] MEDS ORDERED: MAG HYDROX/AL HYDROX/SIMETH 30 ML UNIT-DOSE CUP PO PRN (22:42)
[2022-03-30] MEDS ORDERED: P-EPHED 60MG/TRIPROLIDI 2.5MG TABLET PO PRN (22:42)
[2022-03-31] MEDS: PRENATAL VITAMINS W/ FOLIC ACID TABLET (FP) PO SCH (09:46)
[2022-03-31] MEDS ORDERED: amLODIPine BESYLATE 5 MG TABLET (FP) PO ONE (10:58)
[2022-03-31] MEDS: ASPIRIN 81 MG CHEWABLE TABLETS PO SCH (10:59)
[2022-03-31] MEDS: PANTOPRAZOLE 40 MG TABLET PO SCH (11:00)
[2022-03-31] MEDS: MELATONIN 5 MG TABLETS PO PRN (21:40)
[2022-03-31] MEDS: OLANZapine 10 MG TABLET PO SCH (21:41)
[2022-03-31] MEDS: THIAMINE HCL 100 MG TABLET (FP) PO SCH (21:41)
[2022-03-31] MEDS: NICOTINE 10 MG CARTRIDGE (INHALER) IH PRN (21:43)
[2022-03-31] MEDS: METHYL SALICYLATE/MENTHOL OINT 30 GM TUBE TP SCH (22:25)
[2022-04-01] MEDS: amLODIPine BESYLATE 5 MG TABLET (FP) PO SCH (09:58)
[2022-04-01] MEDS: PRENATAL VITAMINS W/ FOLIC ACID TABLET (FP) PO SCH (09:58)
[2022-04-01] MEDS: ASPIRIN 81 MG CHEWABLE TABLETS PO SCH (09:58)
[2022-04-01] MEDS: PANTOPRAZOLE 40 MG TABLET PO SCH (09:58)
[2022-04-01] MEDS: METHYL SALICYLATE/MENTHOL OINT 30 GM TUBE TP SCH ×2 (09:59→21:12)
[2022-04-01] MEDS: OLANZapine 10 MG TABLET PO SCH (21:11)
[2022-04-01] MEDS: MELATONIN 5 MG TABLETS PO PRN (21:11)
[2022-04-01] MEDS: THIAMINE HCL 100 MG TABLET (FP) PO SCH (21:11)
[2022-04-02] MEDS: PRENATAL VITAMINS W/ FOLIC ACID TABLET (FP) PO SCH (09:51)
[2022-04-02] MEDS: amLODIPine BESYLATE 5 MG TABLET (FP) PO SCH (09:52)
[2022-04-02] MEDS: ASPIRIN 81 MG CHEWABLE TABLETS PO SCH (09:52)
[2022-04-02] MEDS: PANTOPRAZOLE 40 MG TABLET PO SCH (09:52)
[2022-04-02] MEDS: METHYL SALICYLATE/MENTHOL OINT 30 GM TUBE TP SCH ×2 (09:53→21:17)
[2022-04-02] MEDS: OLANZapine 10 MG TABLET PO SCH (21:16)
[2022-04-02] MEDS: THIAMINE HCL 100 MG TABLET (FP) PO SCH (21:17)
[2022-04-02] MEDS: MELATONIN 5 MG TABLETS PO PRN (21:17)
[2022-04-03] MEDS: ASPIRIN 81 MG CHEWABLE TABLETS PO SCH (09:57)
[2022-04-03] MEDS: amLODIPine BESYLATE 5 MG TABLET (FP) PO SCH (09:57)
[2022-04-03] MEDS: METHYL SALICYLATE/MENTHOL OINT 30 GM TUBE TP SCH ×2 (09:57→21:10)
[2022-04-03] MEDS: PRENATAL VITAMINS W/ FOLIC ACID TABLET (FP) PO SCH (09:57)
[2022-04-03] MEDS: PANTOPRAZOLE 40 MG TABLET PO SCH (09:57)
[2022-04-03] MEDS: NICOTINE 10 MG CARTRIDGE (INHALER) IH PRN ×2 (10:10→21:10)
[2022-04-03] MEDS: MELATONIN 5 MG TABLETS PO PRN (21:09)
[2022-04-03] MEDS: OLANZapine 10 MG TABLET PO SCH (21:09)
[2022-04-03] MEDS: THIAMINE HCL 100 MG TABLET (FP) PO SCH (21:09)
[2022-04-04] MEDS: NICOTINE 10 MG CARTRIDGE (INHALER) IH PRN (06:15)
[2022-04-04] MEDS: PRENATAL VITAMINS W/ FOLIC ACID TABLET (FP) PO SCH (09:45)
[2022-04-04] MEDS: amLODIPine BESYLATE 5 MG TABLET (FP) PO SCH (09:46)
[2022-04-04] MEDS: ACETAMINOPHEN 325 MG TABLET (FP) PO PRN (09:46)
[2022-04-04] MEDS: PANTOPRAZOLE 40 MG TABLET PO SCH (09:46)
[2022-04-04] MEDS: METHYL SALICYLATE/MENTHOL OINT 30 GM TUBE TP SCH ×2 (09:46→21:17)
[2022-04-04] MEDS: ASPIRIN 81 MG CHEWABLE TABLETS PO SCH (09:46)
[2022-04-04] MEDS: THIAMINE HCL 100 MG TABLET (FP) PO SCH (21:17)
[2022-04-04] MEDS: MELATONIN 5 MG TABLETS PO PRN (21:17)
[2022-04-04] MEDS: OLANZapine 10 MG TABLET PO SCH (21:17)
[2022-04-05] MEDS: NICOTINE 10 MG CARTRIDGE (INHALER) IH PRN (06:34)
[2022-04-05] MEDS: PRENATAL VITAMINS W/ FOLIC ACID TABLET (FP) PO SCH (10:04)
[2022-04-05] MEDS: ASPIRIN 81 MG CHEWABLE TABLETS PO SCH (10:04)
[2022-04-05] MEDS: PANTOPRAZOLE 40 MG TABLET PO SCH (10:05)
[2022-04-05] MEDS: amLODIPine BESYLATE 5 MG TABLET (FP) PO SCH (10:05)
[2022-04-05] MEDS: METHYL SALICYLATE/MENTHOL OINT 30 GM TUBE TP SCH ×2 (10:05→21:19)
[2022-04-05] MEDS: THIAMINE HCL 100 MG TABLET (FP) PO SCH (21:18)
[2022-04-05] MEDS: OLANZapine 10 MG TABLET PO SCH (21:18)
[2022-04-05] MEDS: MELATONIN 5 MG TABLETS PO PRN (21:18)
[2022-04-06] MEDS: METHYL SALICYLATE/MENTHOL OINT 30 GM TUBE TP SCH ×2 (09:50→21:07)
[2022-04-06] MEDS: PRENATAL VITAMINS W/ FOLIC ACID TABLET (FP) PO SCH (09:50)
[2022-04-06] MEDS: PANTOPRAZOLE 40 MG TABLET PO SCH (09:51)
[2022-04-06] MEDS: ASPIRIN 81 MG CHEWABLE TABLETS PO SCH (09:51)
[2022-04-06] MEDS: amLODIPine BESYLATE 5 MG TABLET (FP) PO SCH (09:51)
[2022-04-06] MEDS: NICOTINE 10 MG CARTRIDGE (INHALER) IH PRN (16:48)
[2022-04-06] MEDS: INSULIN SLIDING SCALE (NOVOLOG) 1 VIAL SQ SCH (16:49)
[2022-04-06] MEDS: MELATONIN 5 MG TABLETS PO PRN (21:06)
[2022-04-06] MEDS: OLANZapine 10 MG TABLET PO SCH (21:06)
[2022-04-06] MEDS: THIAMINE HCL 100 MG TABLET (FP) PO SCH (21:06)
[2022-04-07] MEDS: INSULIN SLIDING SCALE (NOVOLOG) 1 VIAL SQ SCH ×2 (07:54→16:48)
[2022-04-07] MEDS: PRENATAL VITAMINS W/ FOLIC ACID TABLET (FP) PO SCH (09:45)
[2022-04-07] MEDS: METHYL SALICYLATE/MENTHOL OINT 30 GM TUBE TP SCH ×2 (09:45→21:25)
[2022-04-07] MEDS: ACETAMINOPHEN 325 MG TABLET (FP) PO PRN (09:46)
[2022-04-07] MEDS: amLODIPine BESYLATE 5 MG TABLET (FP) PO SCH (09:46)
[2022-04-07] MEDS: ASPIRIN 81 MG CHEWABLE TABLETS PO SCH (09:46)
[2022-04-07] MEDS: PANTOPRAZOLE 40 MG TABLET PO SCH (09:46)
[2022-04-07] MEDS: MELATONIN 5 MG TABLETS PO PRN (21:24)
[2022-04-07] MEDS: THIAMINE HCL 100 MG TABLET (FP) PO SCH (21:24)
[2022-04-07] MEDS: OLANZapine 10 MG TABLET PO SCH (21:24)
[2022-04-08] MEDS: INSULIN SLIDING SCALE (NOVOLOG) 1 VIAL SQ SCH ×2 (07:37→16:44)
[2022-04-08] MEDS: PANTOPRAZOLE 40 MG TABLET PO SCH (10:34)
[2022-04-08] MEDS: METHYL SALICYLATE/MENTHOL OINT 30 GM TUBE TP SCH ×2 (10:34→21:18)
[2022-04-08] MEDS: ASPIRIN 81 MG CHEWABLE TABLETS PO SCH (10:34)
[2022-04-08] MEDS: amLODIPine BESYLATE 5 MG TABLET (FP) PO SCH (10:34)
[2022-04-08] MEDS: PRENATAL VITAMINS W/ FOLIC ACID TABLET (FP) PO SCH (10:34)
[2022-04-08] MEDS: THIAMINE HCL 100 MG TABLET (FP) PO SCH (21:18)
[2022-04-08] MEDS: OLANZapine 10 MG TABLET PO SCH (21:18)
[2022-04-08] MEDS: MELATONIN 5 MG TABLETS PO PRN (21:18)
[2022-04-09] MEDS: NICOTINE 10 MG CARTRIDGE (INHALER) IH PRN ×2 (06:17→16:25)
[2022-04-09] MEDS ORDERED: INSULIN (NOVOLOG) ASPART 100 UNITS/ML 10ML VIAL ONE (06:19)
[2022-04-09] MEDS: INSULIN SLIDING SCALE (NOVOLOG) 1 VIAL SQ SCH ×2 (06:20→16:25)
[2022-04-09] MEDS: ASPIRIN 81 MG CHEWABLE TABLETS PO SCH (09:48)
[2022-04-09] MEDS: METHYL SALICYLATE/MENTHOL OINT 30 GM TUBE TP SCH ×2 (09:48→21:33)
[2022-04-09] MEDS: PRENATAL VITAMINS W/ FOLIC ACID TABLET (FP) PO SCH (09:48)
[2022-04-09] MEDS: amLODIPine BESYLATE 5 MG TABLET (FP) PO SCH (09:48)
[2022-04-09] MEDS: PANTOPRAZOLE 40 MG TABLET PO SCH (09:48)
[2022-04-09] MEDS: MELATONIN 5 MG TABLETS PO PRN (21:09)
[2022-04-09] MEDS: OLANZapine 10 MG TABLET PO SCH (21:10)
[2022-04-09] MEDS: THIAMINE HCL 100 MG TABLET (FP) PO SCH (21:10)
[2022-04-10] MEDS ORDERED: INSULIN (NOVOLOG) ASPART 100 UNITS/ML 10ML VIAL ONE (07:05)
[2022-04-10] MEDS: INSULIN SLIDING SCALE (NOVOLOG) 1 VIAL SQ SCH ×2 (08:03→16:46)
[2022-04-10] MEDS: PRENATAL VITAMINS W/ FOLIC ACID TABLET (FP) PO SCH (09:56)
[2022-04-10] MEDS: ASPIRIN 81 MG CHEWABLE TABLETS PO SCH (09:57)
[2022-04-10] MEDS: ACETAMINOPHEN 325 MG TABLET (FP) PO PRN (09:57)
[2022-04-10] MEDS: PANTOPRAZOLE 40 MG TABLET PO SCH (09:57)
[2022-04-10] MEDS: amLODIPine BESYLATE 5 MG TABLET (FP) PO SCH (09:57)
[2022-04-10] MEDS: METHYL SALICYLATE/MENTHOL OINT 30 GM TUBE TP SCH ×2 (09:58→21:04)
[2022-04-10] MEDS: NICOTINE 10 MG CARTRIDGE (INHALER) IH PRN (10:11)
[2022-04-10] MEDS: THIAMINE HCL 100 MG TABLET (FP) PO SCH (21:03)
[2022-04-10] MEDS: MELATONIN 5 MG TABLETS PO PRN (21:03)
[2022-04-10] MEDS: OLANZapine 10 MG TABLET PO SCH (21:03)
[2022-04-11] MEDS: INSULIN SLIDING SCALE (NOVOLOG) 1 VIAL SQ SCH ×2 (07:36→16:51)
[2022-04-11] MEDS ORDERED: INSULIN (NOVOLOG) ASPART 100 UNITS/ML 10ML VIAL ONE (07:38)
[2022-04-11] MEDS: PRENATAL VITAMINS W/ FOLIC ACID TABLET (FP) PO SCH (09:47)
[2022-04-11] MEDS: ACETAMINOPHEN 325 MG TABLET (FP) PO PRN (09:47)
[2022-04-11] MEDS: METHYL SALICYLATE/MENTHOL OINT 30 GM TUBE TP SCH ×2 (09:48→21:12)
[2022-04-11] MEDS: PANTOPRAZOLE 40 MG TABLET PO SCH (09:48)
[2022-04-11] MEDS: ASPIRIN 81 MG CHEWABLE TABLETS PO SCH (09:48)
[2022-04-11] MEDS: amLODIPine BESYLATE 5 MG TABLET (FP) PO SCH (09:48)
[2022-04-11] MEDS: MELATONIN 5 MG TABLETS PO PRN (21:11)
[2022-04-11] MEDS: THIAMINE HCL 100 MG TABLET (FP) PO SCH (21:11)
[2022-04-11] MEDS: OLANZapine 10 MG TABLET PO SCH (21:11)
[2022-04-12 06:43] VITALS: RESP 18
[2022-04-12] MEDS: INSULIN SLIDING SCALE (NOVOLOG) 1 VIAL SQ SCH ×2 (07:34→16:34)
[2022-04-12] MEDS: PANTOPRAZOLE 40 MG TABLET PO SCH (09:57)
[2022-04-12] MEDS: ASPIRIN 81 MG CHEWABLE TABLETS PO SCH (09:57)
[2022-04-12] MEDS: PRENATAL VITAMINS W/ FOLIC ACID TABLET (FP) PO SCH (09:57)
[2022-04-12] MEDS: amLODIPine BESYLATE 5 MG TABLET (FP) PO SCH (09:57)
[2022-04-12] MEDS: METHYL SALICYLATE/MENTHOL OINT 30 GM TUBE TP SCH ×2 (09:58→21:12)
[2022-04-12] MEDS: MELATONIN 5 MG TABLETS PO PRN (21:12)
[2022-04-12] MEDS: THIAMINE HCL 100 MG TABLET (FP) PO SCH (21:13)
[2022-04-12] MEDS: OLANZapine 10 MG TABLET PO SCH (21:13)
[2022-04-13] MEDS: NICOTINE 10 MG CARTRIDGE (INHALER) IH PRN (06:32)
[2022-04-13] MEDS: INSULIN SLIDING SCALE (NOVOLOG) 1 VIAL SQ SCH (06:35)
[2022-04-13] MEDS ORDERED: INSULIN (NOVOLOG) ASPART 100 UNITS/ML 10ML VIAL ONE (06:35)
[2022-04-13 07:01] VITALS: BP 153/71; PULSE 85; TEMP 97.8
[2022-04-13] MEDS: PANTOPRAZOLE 40 MG TABLET PO SCH (09:50)
[2022-04-13] MEDS: PRENATAL VITAMINS W/ FOLIC ACID TABLET (FP) PO SCH (09:50)
[2022-04-13] MEDS: ASPIRIN 81 MG CHEWABLE TABLETS PO SCH (09:50)
[2022-04-13] MEDS: amLODIPine BESYLATE 5 MG TABLET (FP) PO SCH (09:50)
[2022-04-13] MEDS: METHYL SALICYLATE/MENTHOL OINT 30 GM TUBE TP SCH (09:51)
== END 2022-04-13 10:10 | disposition home or self-care (01) | DRG 772 ==
LOC: YASAS 20:08 → Y5N 20:09
PROVIDERS: ADMIT Allergy & Immunology; ATTEND Psychiatry & Neurology Pain Medicine
PROC: HZ42ZZZ Group Counseling for Substance Abuse Treatment, Cognitive-Behavioral (ICD-10-PCS; principal; 2022-03-30)
DX: F10.220 Alcohol dependence with intoxication, uncomplicated (principal); F10.20 Alcohol dependence, uncomplicated; F10.282 Alcohol dependence with alcohol-induced sleep disorder; F12.20 Cannabis dependence, uncomplicated; F17.210 Nicotine dependence, cigarettes, uncomplicated; F31.9 Bipolar disorder, unspecified; F20.9 Schizophrenia, unspecified; F19.24 Other psychoactive substance dependence with psychoactive substance-induced mood disorder; F19.282 Other psychoactive substance dependence with psychoactive substance-induced sleep disorder; D50.9 Iron deficiency anemia, unspecified; K21.9 Gastro-esophageal reflux disease without esophagitis; J44.9 Chronic obstructive pulmonary disease, unspecified; H91.92 Unspecified hearing loss, left ear; M54.50 Low back pain, unspecified; G89.29 Other chronic pain; R73.03 Prediabetes; Z86.11 Personal history of tuberculosis
CPT/HCPCS: 36415; 82962; 83036

== ENCOUNTER 2022-07-26 21:15 | Inpatient (IN) | payer OTHER ==
[2022-07-26 22:02] VITALS: BMI 22.1
[2022-07-26] MEDS ORDERED: MELATONIN 5 MG TABLETS PO PRN (22:33)
[2022-07-26] MEDS ORDERED: IBUPROFEN 600 MG TABLET (FP) PO PRN (22:33)
[2022-07-26] MEDS ORDERED: POLYETHYLENE GLYCOL (HEALTHYLAX) 3350 17 GM PACKET PO PRN (22:33)
[2022-07-26] MEDS ORDERED: MAG HYDROX/AL HYDROX/SIMETH 30 ML UNIT-DOSE CUP PO PRN (22:33)
[2022-07-26] MEDS ORDERED: DICYCLOMINE HCL 10 MG CAPSULE PO PRN (22:33)
[2022-07-26] MEDS ORDERED: guaiFENesin 200 MG/10 ML 10 ML UNIT-DOSE CUPS PO PRN (22:33)
[2022-07-26] MEDS ORDERED: ACETAMINOPHEN 325 MG TABLET (FP) PO PRN (22:33)
[2022-07-26] MEDS ORDERED: MAGNESIUM HYDROX 2400MG/30ML ORAL SUSPENSION 30 ML CUP PO PRN (22:33)
[2022-07-26] MEDS ORDERED: ONDANSETRON *ODT* 4 MG TABLET SL PRN (22:33)
[2022-07-26] MEDS ORDERED: IBUPROFEN 400 MG TABLET (FP) PO PRN (22:33)
[2022-07-26] MEDS ORDERED: LOPERAMIDE HCL 2 MG CAPSULE PO PRN (22:33)
[2022-07-26] MEDS ORDERED: BENZOCAINE/MENTHOL (CHLORASEPTIC ) LOZENGE MM PRN (22:33)
[2022-07-26] MEDS ORDERED: P-EPHED 60MG/TRIPROLIDI 2.5MG TABLET PO PRN (22:33)
[2022-07-26] MEDS ORDERED: BISMUTH SUBSALICYLATE 524 MG/30 ML PO PRN (22:33)
[2022-07-26] MEDS ORDERED: diazePAM 5 MG TABLET PO PRN (22:35)
[2022-07-26] MEDS: diazePAM 5 MG TABLET PO SCH (23:55)
[2022-07-27] MEDS: diazePAM 5 MG TABLET PO SCH ×4 (05:36→22:27)
[2022-07-27] MEDS: amLODIPine BESYLATE 5 MG TABLET (FP) PO SCH (10:11)
[2022-07-27] MEDS: ASPIRIN 81 MG CHEWABLE TABLETS PO SCH (10:11)
[2022-07-27] MEDS: METHOCARBAMOL 500 MG TABLET PO PRN (10:12)
[2022-07-27] MEDS: hydrOXYzine PAMOATE 25 MG CAPSULE (FP) PO PRN (10:12)
[2022-07-27] MEDS: PRENATAL VITAMINS W/ FOLIC ACID TABLET (FP) PO SCH (10:12)
[2022-07-27 11:13] LABS: HEMATOCRIT 30.8 % (35.4-49); HEMOGLOBIN 10.3 GM/dL (11.7-16.9); MCH 31.2 pg (25.7-33.7); MCHC 33.5 g/dl (32.0-35.9); PLATELET COUNT 138 10^3/uL (134-434); RBC 3.31 M/mm3 (4.00-5.60); RDW 16.2 % (11.9-15.9); WHITE BLOOD COUNT 2.6 K/mm3 (4.0-10.0)
[2022-07-27 12:06] LABS: ALBUMIN 3.4 g/dl (3.4-5.0); BLOOD UREA NITROGEN 8.2 mg/dL (7-18); CALCIUM 9.1 mg/dL (8.5-10.1)
[2022-07-27 12:10] LABS: CREATININE 0.7 mg/dL (0.55-1.3)
[2022-07-27 12:11] LABS: BILIRUBIN,TOTAL 0.6 mg/dL (0.2-1); TOT PROT 6.9 g/dl (6.4-8.2)
[2022-07-27] MEDS ORDERED: cloNIDine HCL 0.1 MG TABLET PO ONE (13:45)
[2022-07-27] MEDS: THIAMINE HCL 100 MG TABLET (FP) PO SCH (22:27)
[2022-07-27] MEDS: SUVOREXANT 10 MG TABLET PO PRN (22:28)
[2022-07-28] MEDS: diazePAM 5 MG TABLET PO SCH ×3 (05:20→22:35)
[2022-07-28] MEDS: ACETAMINOPHEN 325 MG TABLET (FP) PO PRN (05:22)
[2022-07-28] MEDS: amLODIPine BESYLATE 5 MG TABLET (FP) PO SCH ×2 (10:39→10:45)
[2022-07-28] MEDS: ASPIRIN 81 MG CHEWABLE TABLETS PO SCH ×2 (10:39→10:45)
[2022-07-28] MEDS: PRENATAL VITAMINS W/ FOLIC ACID TABLET (FP) PO SCH ×2 (10:39→10:45)
[2022-07-28] MEDS: METHOCARBAMOL 500 MG TABLET PO PRN (10:45)
[2022-07-28] MEDS: hydrOXYzine PAMOATE 25 MG CAPSULE (FP) PO PRN ×2 (10:45→13:30)
[2022-07-28] MEDS: METHYL SALICYLATE/MENTHOL OINT 30 GM TUBE TP SCH ×2 (11:27→22:36)
[2022-07-28] MEDS: THIAMINE HCL 100 MG TABLET (FP) PO SCH (22:35)
[2022-07-28] MEDS: SUVOREXANT 10 MG TABLET PO PRN (22:36)
[2022-07-29] MEDS: ACETAMINOPHEN 325 MG TABLET (FP) PO PRN (05:13)
[2022-07-29] MEDS: diazePAM 5 MG TABLET PO SCH ×2 (05:13→17:18)
[2022-07-29] MEDS: amLODIPine BESYLATE 5 MG TABLET (FP) PO SCH (10:24)
[2022-07-29] MEDS: PRENATAL VITAMINS W/ FOLIC ACID TABLET (FP) PO SCH (10:24)
[2022-07-29] MEDS: ASPIRIN 81 MG CHEWABLE TABLETS PO SCH (10:24)
[2022-07-29] MEDS: METHYL SALICYLATE/MENTHOL OINT 30 GM TUBE TP SCH ×2 (10:27→22:21)
[2022-07-29] MEDS: LIDOCAINE 5% TOPICAL PATCH TP SCH (17:17)
[2022-07-29 20:40] VITALS: PULSE 77
[2022-07-29] MEDS ORDERED: LIDOCAINE PATCH REMOVAL MC SCH (22:00)
[2022-07-29] MEDS: SUVOREXANT 10 MG TABLET PO PRN (22:20)
[2022-07-29] MEDS: THIAMINE HCL 100 MG TABLET (FP) PO SCH (22:21)
[2022-07-30] MEDS: hydrOXYzine PAMOATE 25 MG CAPSULE (FP) PO PRN (05:32)
[2022-07-30] MEDS: METHOCARBAMOL 500 MG TABLET PO PRN (05:32)
[2022-07-30] MEDS: ACETAMINOPHEN 325 MG TABLET (FP) PO PRN (05:33)
[2022-07-30] MEDS ORDERED: diazePAM 5 MG TABLET PO ONE (06:00)
[2022-07-30 06:25] VITALS: RESP 18
[2022-07-30 09:23] VITALS: BP 147/85; TEMP 97.8
[2022-07-30] MEDS: METHYL SALICYLATE/MENTHOL OINT 30 GM TUBE TP SCH (09:33)
[2022-07-30] MEDS: LIDOCAINE 5% TOPICAL PATCH TP SCH (09:33)
[2022-07-30] MEDS: ASPIRIN 81 MG CHEWABLE TABLETS PO SCH (09:33)
[2022-07-30] MEDS: amLODIPine BESYLATE 5 MG TABLET (FP) PO SCH (09:33)
[2022-07-30] MEDS: PRENATAL VITAMINS W/ FOLIC ACID TABLET (FP) PO SCH (09:33)
== END 2022-07-30 10:20 | disposition home or self-care (01) | DRG 775 ==
LOC: YASAS 21:15 → Y6N 23:24
PROVIDERS: ADMIT Allergy & Immunology; ATTEND Surgery
PROC: HZ2ZZZZ Detoxification Services for Substance Abuse Treatment (ICD-10-PCS; principal; 2022-07-26)
DX: F10.230 Alcohol dependence with withdrawal, uncomplicated (principal); F12.20 Cannabis dependence, uncomplicated; F17.210 Nicotine dependence, cigarettes, uncomplicated; F19.282 Other psychoactive substance dependence with psychoactive substance-induced sleep disorder; F32.A Depression, unspecified; D50.9 Iron deficiency anemia, unspecified; H91.92 Unspecified hearing loss, left ear; I10 Essential (primary) hypertension; J44.9 Chronic obstructive pulmonary disease, unspecified; K21.9 Gastro-esophageal reflux disease without esophagitis; M17.0 Bilateral primary osteoarthritis of knee; M1A.4 Other secondary chronic gout; M54.50 Low back pain, unspecified; G89.29 Other chronic pain; R76.11 Nonspecific reaction to tuberculin skin test without active tuberculosis; Z56.0 Unemployment, unspecified; Z59.00 Homelessness unspecified
CPT/HCPCS: 36415; 80053; 85027; 86780; C9803-CS; U0003; U0005

== ENCOUNTER 2022-10-16 18:46 | Inpatient (IN) | payer OTHER ==
[2022-10-16] MEDS ORDERED: PANTOPRAZOLE SODIUM 40 MG VIAL IVPUSH ONE (19:07)
[2022-10-16] MEDS ORDERED: PIPERACILLIN/TAZOB 3.375 GM 3.375 GM in DEXTROSE 5%-WATER - 50 ML IVPB ONE (19:09)
[2022-10-16] MEDS ORDERED: ACETAMINOPHEN 1000 MG/100 ML BAG IVPB ONE (19:13)
[2022-10-16] MEDS ORDERED: ACETAMINOPHEN INJECTION 100 ML IVPB ONE (19:28)
[2022-10-16 19:29] LABS: BASO % 0.2 % (0-2.0); EOS % 1.3 % (0-4.5); HEMATOCRIT 24.6 % (35.4-49); HEMOGLOBIN 8.5 GM/dL (11.7-16.9); LYMPH % 2.5 % (8-40); MCH 30.5 pg (25.7-33.7); MCHC 34.5 g/dl (32.0-35.9); MEAN CELL VOLUME 88.5 fl (80-96); MEAN PLT VOLUME 10.5 fl (7.5-11.1); MONO % 8.7 % (3.8-10.2); NEUT % 87.3 % (42.8-82.8); PLATELET COUNT 66 10^3/uL (134-434); RBC 2.78 M/mm3 (4.00-5.60); RDW 14.5 % (11.9-15.9); WHITE BLOOD COUNT 16.4 K/mm3 (4.0-10.0)
[2022-10-16 19:30] LABS: VENOUS BASE EXCESS -0.9 mmol/L (-2-2); VENOUS O2 SATURATION 62.9 % (70-80); VENOUS PCO2 37.6 mmHg (38-52); VENOUS PH 7.413 (7.310-7.410)
[2022-10-16 19:34] LABS: INR 1.08 (0.83-1.09); PROTHROMBIN TIME (PATIENT) 12.5 SEC (9.7-13.0)
[2022-10-16 19:36] LABS: ACTIVATED PTT 33.1 SECONDS (25.2-36.5)
[2022-10-16] MEDS ORDERED: PANTOPRAZOLE SODIUM 40 MG VIAL ONE (19:40)
[2022-10-16] MEDS ORDERED: PIPERACILLIN/TAZOB 3.375 GM 3.375 GM/50 ML BAG IVPB ONE (19:41)
[2022-10-16 19:47] LABS: CHLORIDE 87 mmol/L (98-107); POTASSIUM 5.9 mmol/L (3.5-5.1); SODIUM 121 mmol/L (136-145)
[2022-10-16 19:49] LABS: ALBUMIN 2.2 g/dl (3.4-5.0); BLOOD UREA NITROGEN 44.6 mg/dL (7-18); CALCIUM 7.3 mg/dL (8.5-10.1); GLUCOSE,RANDOM 85 mg/dL (74-106)
[2022-10-16 19:50] LABS: ANION GAP 11 MMOL/L (8-16); CO2 23 mmol/L (21-32); LIPASE 295 U/L (73-393)
[2022-10-16 19:52] LABS: CREATININE 6.6 mg/dL (0.55-1.3)
[2022-10-16 19:54] LABS: TOT PROT 6.7 g/dl (6.4-8.2)
[2022-10-16 19:55] LABS: ALK PHOS 130 U/L (45-117)
[2022-10-16 20:02] LABS: BILIRUBIN,TOTAL 21.7 mg/dL (0.2-1); SGOT/AST 485 U/L (15-37); SGPT/ALT 128 U/L (13-61)
[2022-10-16] MEDS ORDERED: NOREPINEPHRINE BITARTRATE 4 MG/4 ML ML IV ONE ×2 (20:29→20:37)
[2022-10-16 20:40] LABS: ANISOCYTOSIS 3+; MACROCYTOSIS 2+; TARGET CELLS 1+; TOXIC GRANULATION 1+
[2022-10-16 20:42] LABS: CHLORIDE 92 mmol/L (98-107); SODIUM 127 mmol/L (136-145)
[2022-10-16 20:44] LABS: ANION GAP 15 MMOL/L (8-16); BLOOD UREA NITROGEN 45.3 mg/dL (7-18); CO2 19 mmol/L (21-32); GLUCOSE,RANDOM 107 mg/dL (74-106)
[2022-10-16 20:48] LABS: CREATININE 6.3 mg/dL (0.55-1.3)
[2022-10-16 20:54] LABS: BILIRUBIN,DIRECT 13.1 mg/dL (0.0-0.2)
[2022-10-16 20:57] LABS: CALCIUM 6.5 mg/dL (8.5-10.1)
[2022-10-16] MEDS ORDERED: NOREPINEPHRINE BITARTRATE 4,000 MCG in DEXTROSE 5%-WATER - 496 ML IV SCH (21:00)
[2022-10-16] MEDS ORDERED: ONDANSETRON 4 MG/2 ML VIAL IVPUSH PRN (21:33)
[2022-10-16] MEDS ORDERED: LORazepam 2 MG/ML SDV VIAL IVPUSH PRN ×3 (21:56→21:58)
[2022-10-16 22:32] LABS: BASO % 0.3 % (0-2.0); EOS % 0.4 % (0-4.5); HEMATOCRIT 29.8 % (35.4-49); HEMOGLOBIN 10.1 GM/dL (11.7-16.9); LYMPH % 2.5 % (8-40); MCH 29.4 pg (25.7-33.7); MCHC 33.8 g/dl (32.0-35.9); MEAN CELL VOLUME 87.1 fl (80-96); MEAN PLT VOLUME 10.3 fl (7.5-11.1); MONO % 4.2 % (3.8-10.2); NEUT % 92.6 % (42.8-82.8); PLATELET COUNT 53 10^3/uL (134-434); RBC 3.42 M/mm3 (4.00-5.60); RDW 14.6 % (11.9-15.9); WHITE BLOOD COUNT 15.4 K/mm3 (4.0-10.0)
[2022-10-16 23:02] LABS: ANISOCYTOSIS 2+; MACROCYTOSIS 0; TARGET CELLS 2+
[2022-10-16] MEDS: CEFTRIAXONE 1 GM in DEXTROSE 5%-WATER - 50 ML IVPB SCH (23:15)
[2022-10-16] MEDS: THIAMINE HCL 200 MG/2 ML VIAL IVPB SCH (23:16)
[2022-10-16] MEDS: MUPIROCIN 2% TOPICAL OINTMENT FOR DECOLONIZATION NS SCH (23:16)
[2022-10-16] MEDS: CHLORHEXIDINE GLUCONATE 4% CLEANSER FOR DECOLONIZATION TP SCH (23:16)
[2022-10-16] MEDS: FOLIC ACID 1 MG TABLET (FP) PO SCH (23:16)
[2022-10-16] MEDS: PANTOPRAZOLE SODIUM 80 MG in SODIUM CHLORIDE 100 ML IVPB SCH (23:17)
[2022-10-16] MEDS: OCTREOTIDE ACETATE 200 MCG, OCTREOTIDE ACETATE 1,000 MCG in DEXTROSE 5%-WATER - 496 ML IVPB SCH (23:17)
[2022-10-16] MEDS: VASOPRESSIN 40 UNITS/100 ML BAG IV SCH (23:39)
[2022-10-16] MEDS: POTASSIUM CHLORIDE 10 MEQ in SODIUM CHLORIDE 1,000 ML IVPB SCH (23:39)
[2022-10-16 23:44] LABS: HEMOGLOBIN 10.2 GM/dL (11.7-16.9); MCH 29.7 pg (25.7-33.7); MCHC 34.2 g/dl (32.0-35.9); MEAN CELL VOLUME 86.9 fl (80-96); PLATELET COUNT 52 10^3/uL (134-434); RBC 3.45 M/mm3 (4.00-5.60); RDW 14.5 % (11.9-15.9); WHITE BLOOD COUNT 13.9 K/mm3 (4.0-10.0)
[2022-10-17 01:01] LABS: HIV INTERPRETATION NEGATIVE (NEGATIVE)
[2022-10-17] MEDS: NICOTINE 14 MG/24 HOURS TOPICAL PATCH TD SCH ×2 (01:22→09:11)
[2022-10-17] MEDS: THIAMINE HCL 200 MG/2 ML VIAL IVPB SCH ×3 (06:53→21:21)
[2022-10-17 07:11] LABS: INR 1.16 (0.83-1.09); PROTHROMBIN TIME (PATIENT) 13.4 SEC (9.7-13.0)
[2022-10-17 07:18] LABS: HEMATOCRIT 27.2 % (35.4-49); HEMOGLOBIN 9.5 GM/dL (11.7-16.9); MCH 29.9 pg (25.7-33.7); MCHC 34.9 g/dl (32.0-35.9); MEAN CELL VOLUME 85.9 fl (80-96); MEAN PLT VOLUME 10.8 fl (7.5-11.1); PLATELET COUNT 52 10^3/uL (134-434); RBC 3.17 M/mm3 (4.00-5.60); RDW 14.7 % (11.9-15.9); WHITE BLOOD COUNT 13.8 K/mm3 (4.0-10.0)
[2022-10-17 07:23] LABS: CHLORIDE 94 mmol/L (98-107); POTASSIUM 3.3 mmol/L (3.5-5.1); SODIUM 127 mmol/L (136-145)
[2022-10-17 07:24] LABS: ANION GAP 14 MMOL/L (8-16); CO2 19 mmol/L (21-32)
[2022-10-17 07:25] LABS: BLOOD UREA NITROGEN 52.7 mg/dL (7-18); GLUCOSE,RANDOM 124 mg/dL (74-106); LIPASE 244 U/L (73-393); MAGNESIUM 1.7 mg/dL (1.8-2.4)
[2022-10-17 07:26] LABS: AMYLASE 73 U/L (25-115)
[2022-10-17 07:28] LABS: CREATININE 7.3 mg/dL (0.55-1.3); PHOSPHOROUS 3.4 mg/dL (2.5-4.9)
[2022-10-17 07:48] LABS: CALCIUM 6.2 mg/dL (8.5-10.1)
[2022-10-17] MEDS ORDERED: MAGNESIUM 1GM/D5W - 1 GM/100 ML IVPB IVPB ONE (08:00)
[2022-10-17 08:15] LABS: TOT PROT 5.2 g/dl (6.4-8.2)
[2022-10-17 08:16] LABS: HDL CHOLESTEROL 8 mg/dL (40-60)
[2022-10-17 08:17] LABS: ALBUMIN 1.8 g/dl (3.4-5.0)
[2022-10-17] MEDS ORDERED: SODIUM CHLORIDE 1,000 ML IV STA (08:19)
[2022-10-17 08:20] LABS: BILIRUBIN,DIRECT 14.1 mg/dL (0.0-0.2); CHOLESTEROL 84 mg/dL (50-200); SGOT/AST 378 U/L (15-37); SGPT/ALT 98 U/L (13-61)
[2022-10-17 08:22] LABS: LDL CHOLESTEROL (ONLY SJRH) 23 mg/dL (5-100)
[2022-10-17 08:32] LABS: URINE APPEARANCE TURBID; URINE COLOR DK YELLOW
[2022-10-17 08:33] LABS: PH,URINE 5.5 (5.0-8.0); URINE BILIRUBIN LARGE (NEGATIVE); URINE GLUCOSE (UA) NEGATIVE (NEGATIVE); URINE KETONE NEGATIVE (NEGATIVE); URINE LEUK ESTERASE 4+ (NEGATIVE); URINE NITRITE POSITIVE (NEGATIVE); URINE PROTEIN 1+ (NEGATIVE); URINE RBC 100-200 /uL (0-23.9)
[2022-10-17 08:34] LABS: URINE BACTERIA 3+ /uL (0-1359); URINE WBC 100-200 /uL (0-25.8)
[2022-10-17 08:38] LABS: URINE BARBITURATES NEGATIVE (NEGATIVE)
[2022-10-17 08:39] LABS: PHENCYCLIDINE,URINE NEGATIVE (NEGATIVE)
[2022-10-17 08:46] LABS: COCAINE, UR NEGATIVE (NEGATIVE); METHADONE, UR NEGATIVE (NEGATIVE); OPIATES, URI NEGATIVE (NEGATIVE); URINE AMPHETAMINES NEGATIVE (NEGATIVE); URINE BENZODIAZEPINES NEGATIVE (NEGATIVE)
[2022-10-17 08:46] LABS: ALK PHOS 100 U/L (45-117); BILIRUBIN,TOTAL 16.9 mg/dL (0.2-1)
[2022-10-17] MEDS: PANTOPRAZOLE SODIUM 80 MG in SODIUM CHLORIDE 100 ML IVPB SCH ×3 (09:09→23:57)
[2022-10-17] MEDS: KCL 10 MEQ IVPB 10 MEQ/100 ML INFUS.BAG IVPB SCH ×3 (09:10→11:39)
[2022-10-17] MEDS: FOLIC ACID 1 MG TABLET (FP) PO SCH (09:11)
[2022-10-17] MEDS: MUPIROCIN 2% TOPICAL OINTMENT FOR DECOLONIZATION NS SCH ×2 (09:11→21:23)
[2022-10-17] MEDS ORDERED: CALCIUM GLUCONATE 10% - 1,000 MG/10 ML VIAL IVPB ONE (09:48)
[2022-10-17] MEDS ORDERED: MEROPENEM 1 GM in DEXTROSE 5%-WATER 100 ML IVPB ONE (10:00)
[2022-10-17] MEDS: POTASSIUM CHLORIDE 10 MEQ in SODIUM CHLORIDE 1,000 ML IVPB SCH ×2 (10:39→23:56)
[2022-10-17] MEDS: CHLORHEXIDINE GLUCONATE 4% CLEANSER FOR DECOLONIZATION TP SCH (21:23)
[2022-10-17] MEDS: CEFTRIAXONE 1 GM in DEXTROSE 5%-WATER - 50 ML IVPB SCH (21:55)
[2022-10-17] MEDS: OCTREOTIDE ACETATE 200 MCG, OCTREOTIDE ACETATE 1,000 MCG in DEXTROSE 5%-WATER - 496 ML IVPB SCH (23:56)
[2022-10-17] MEDS: VASOPRESSIN 40 UNITS/100 ML BAG IV SCH (23:56)
[2022-10-18] MEDS: PANTOPRAZOLE SODIUM 80 MG in SODIUM CHLORIDE 100 ML IVPB SCH ×3 (05:49→16:45)
[2022-10-18] MEDS: THIAMINE HCL 200 MG/2 ML VIAL IVPB SCH ×2 (06:07→13:48)
[2022-10-18 06:53] LABS: CHLORIDE 98 mmol/L (98-107); POTASSIUM 4.2 mmol/L (3.5-5.1); SODIUM 128 mmol/L (136-145)
[2022-10-18 06:57] LABS: ALBUMIN 1.5 g/dl (3.4-5.0); ANION GAP 14 MMOL/L (8-16); BLOOD UREA NITROGEN 68.4 mg/dL (7-18); CO2 17 mmol/L (21-32); GLUCOSE,RANDOM 90 mg/dL (74-106); MAGNESIUM 2.3 mg/dL (1.8-2.4)
[2022-10-18 06:59] LABS: BILIRUBIN,DIRECT 12.8 mg/dL (0.0-0.2)
[2022-10-18 07:00] LABS: PHOSPHOROUS 5.1 mg/dL (2.5-4.9); SGOT/AST 225 U/L (15-37); SGPT/ALT 70 U/L (13-61)
[2022-10-18 07:01] LABS: BILIRUBIN,TOTAL 14.4 mg/dL (0.2-1); TOT PROT 5.1 g/dl (6.4-8.2)
[2022-10-18 07:02] LABS: ALK PHOS 98 U/L (45-117)
[2022-10-18 07:03] LABS: HEMATOCRIT 29.1 % (35.4-49); MCH 30.1 pg (25.7-33.7); MCHC 34.5 g/dl (32.0-35.9); MEAN CELL VOLUME 87.2 fl (80-96); MEAN PLT VOLUME 10.4 fl (7.5-11.1); PLATELET COUNT 54 10^3/uL (134-434); RBC 3.34 M/mm3 (4.00-5.60); WHITE BLOOD COUNT 12.4 K/mm3 (4.0-10.0)
[2022-10-18 07:09] LABS: INR 1.16 (0.83-1.09); PROTHROMBIN TIME (PATIENT) 13.4 SEC (9.7-13.0)
[2022-10-18 07:11] LABS: CALCIUM 6.3 mg/dL (8.5-10.1)
[2022-10-18] MEDS ORDERED: SODIUM CHLORIDE 1,000 ML IV SCH (08:30)
[2022-10-18] MEDS ORDERED: SODIUM CHLORIDE 0.9% 1000 ML INFUS.BAG IV ONE (08:34)
[2022-10-18 09:19] LABS: ANISOCYTOSIS 0; HELMET CELLS 0; HOWELL-JOLLY BODIES 0; MACROCYTOSIS 0; OVALOCYTE 0; ROULEAU 0; SICKELED CELLS 0; TARGET CELLS 0; TEAR DROP CELLS 0; TOXIC GRANULATION 0
[2022-10-18] MEDS: FOLIC ACID 1 MG TABLET (FP) PO SCH (09:45)
[2022-10-18] MEDS: NICOTINE 14 MG/24 HOURS TOPICAL PATCH TD SCH (09:45)
[2022-10-18] MEDS: SODIUM CHLORIDE 1,000 ML IV SCH ×2 (09:45→23:49)
[2022-10-18] MEDS: MUPIROCIN 2% TOPICAL OINTMENT FOR DECOLONIZATION NS SCH ×2 (09:46→22:19)
[2022-10-18] MEDS ORDERED: MEROPENEM 1 GM in DEXTROSE 5%-WATER 100 ML IVPB ONE (10:30)
[2022-10-18] MEDS: CALCIUM ACETATE 667 MG CAPSULE (FP) PO SCH (16:45)
[2022-10-18] MEDS: CHLORHEXIDINE GLUCONATE 4% CLEANSER FOR DECOLONIZATION TP SCH (22:19)
[2022-10-19] MEDS: PANTOPRAZOLE SODIUM 80 MG in SODIUM CHLORIDE 100 ML IVPB SCH (03:03)
[2022-10-19 05:58] LABS: HEMATOCRIT 29.8 % (35.4-49); HEMOGLOBIN 10.2 GM/dL (11.7-16.9); MCH 30.3 pg (25.7-33.7); MCHC 34.4 g/dl (32.0-35.9); MEAN PLT VOLUME 10.7 fl (7.5-11.1); PLATELET COUNT 92 10^3/uL (134-434); RBC 3.38 M/mm3 (4.00-5.60); RDW 15.5 % (11.9-15.9); WHITE BLOOD COUNT 15.9 K/mm3 (4.0-10.0)
[2022-10-19 06:23] LABS: CHLORIDE 104 mmol/L (98-107); POTASSIUM 4.1 mmol/L (3.5-5.1); SODIUM 131 mmol/L (136-145)
[2022-10-19 06:26] LABS: ALBUMIN 1.4 g/dl (3.4-5.0); ANION GAP 14 MMOL/L (8-16); BLOOD UREA NITROGEN 81.9 mg/dL (7-18); CO2 13 mmol/L (21-32); GLUCOSE,RANDOM 75 mg/dL (74-106); MAGNESIUM 2.2 mg/dL (1.8-2.4)
[2022-10-19 06:29] LABS: SGOT/AST 141 U/L (15-37); SGPT/ALT 52 U/L (13-61)
[2022-10-19 06:30] LABS: BILIRUBIN,TOTAL 9.7 mg/dL (0.2-1)
[2022-10-19 06:32] LABS: ALK PHOS 91 U/L (45-117)
[2022-10-19 06:50] LABS: INR 1.17 (0.83-1.09); PROTHROMBIN TIME (PATIENT) 13.6 SEC (9.7-13.0)
[2022-10-19 06:52] LABS: ACTIVATED PTT 29.8 SECONDS (25.2-36.5)
[2022-10-19 07:08] LABS: CALCIUM 5.8 mg/dL (8.5-10.1); CREATININE 9.5 mg/dL (0.55-1.3)
[2022-10-19] MEDS ORDERED: diazePAM CARPU-JECT 10 MG/2 ML DISP.SYRIN IVPUSH ONE (07:54)
[2022-10-19] MEDS: CALCIUM ACETATE 667 MG CAPSULE (FP) PO SCH ×3 (08:08→16:57)
[2022-10-19 08:46] LABS: ANISOCYTOSIS 0; HELMET CELLS 0; HOWELL-JOLLY BODIES 0; MACROCYTOSIS 0; OVALOCYTE 0; ROULEAU 0; SICKELED CELLS 0; TARGET CELLS 0; TEAR DROP CELLS 0; TOXIC GRANULATION 0
[2022-10-19] MEDS: FOLIC ACID 1 MG TABLET (FP) PO SCH (09:20)
[2022-10-19] MEDS: MUPIROCIN 2% TOPICAL OINTMENT FOR DECOLONIZATION NS SCH ×2 (09:21→21:18)
[2022-10-19] MEDS: NICOTINE 14 MG/24 HOURS TOPICAL PATCH TD SCH (09:21)
[2022-10-19] MEDS ORDERED: LORazepam 1 MG TABLET PO PRN (09:38)
[2022-10-19] MEDS: LACTATED RINGERS SOLUTION 1,000 ML/1,000 ML INFUS.BAG IV SCH (09:44)
[2022-10-19] MEDS: CALCIUM GLUCONATE 10% - 1,000 MG/10 ML VIAL IVPUSH SCH ×2 (09:44→10:51)
[2022-10-19] MEDS ORDERED: MEROPENEM 1 GM in DEXTROSE 5%-WATER 100 ML IVPB SCH (10:00)
[2022-10-19] MEDS ORDERED: PANTOPRAZOLE SODIUM 40 MG VIAL IVPUSH SCH (10:00)
[2022-10-19] MEDS: SODIUM CHLORIDE 1,000 ML IV SCH (10:53)
[2022-10-19] MEDS ORDERED: LORazepam 2 MG TABLET PO SCH (11:00)
[2022-10-19] MEDS ORDERED: SODIUM BICARBONATE 8.4% 50 MEQ/50 ML DISP.SYRIN IVPUSH ONE ×2 (12:00→20:00)
[2022-10-19] MEDS ORDERED: CALCITRIOL 0.25 MCG CAPSULE (FP) PO ONE (15:09)
[2022-10-19] MEDS: SODIUM BICARBONATE 650 MG TABLET PO SCH ×2 (15:23→21:14)
[2022-10-19] MEDS: LORazepam 1 MG TABLET PO SCH ×2 (16:57→23:15)
[2022-10-19] MEDS: CHLORHEXIDINE GLUCONATE 4% CLEANSER FOR DECOLONIZATION TP SCH (21:14)
[2022-10-19] MEDS: LACTULOSE 20 GM/30 ML UDC (FOR ORAL USE ONLY) PO SCH ×2 (21:14→21:38)
[2022-10-20] MEDS: LORazepam 1 MG TABLET PO SCH ×4 (05:37→23:48)
[2022-10-20] MEDS: SODIUM BICARBONATE 650 MG TABLET PO SCH ×3 (07:23→21:54)
[2022-10-20 07:28] LABS: HEMOGLOBIN 10.2 GM/dL (11.7-16.9); MCH 30.2 pg (25.7-33.7); MCHC 35.3 g/dl (32.0-35.9); MEAN CELL VOLUME 85.5 fl (80-96); MEAN PLT VOLUME 11.1 fl (7.5-11.1); PLATELET COUNT 124 10^3/uL (134-434); RDW 15.3 % (11.9-15.9); WHITE BLOOD COUNT 14.9 K/mm3 (4.0-10.0)
[2022-10-20 07:34] LABS: INR 1.17 (0.83-1.09); PROTHROMBIN TIME (PATIENT) 13.6 SEC (9.7-13.0)
[2022-10-20] MEDS: CALCIUM ACETATE 667 MG CAPSULE (FP) PO SCH ×3 (07:43→16:35)
[2022-10-20 07:44] LABS: CHLORIDE 103 mmol/L (98-107); POTASSIUM 4.1 mmol/L (3.5-5.1); SODIUM 132 mmol/L (136-145)
[2022-10-20 07:47] LABS: ALBUMIN 1.4 g/dl (3.4-5.0); ANION GAP 13 MMOL/L (8-16); BLOOD UREA NITROGEN 87.6 mg/dL (7-18); CO2 16 mmol/L (21-32); GLUCOSE,RANDOM 124 mg/dL (74-106)
[2022-10-20 07:49] LABS: BILIRUBIN,DIRECT 4.4 mg/dL (0.0-0.2)
[2022-10-20 07:50] LABS: SGOT/AST 108 U/L (15-37); SGPT/ALT 41 U/L (13-61)
[2022-10-20] MEDS: LACTATED RINGERS SOLUTION 1,000 ML/1,000 ML INFUS.BAG IV SCH ×3 (07:51→16:36)
[2022-10-20 07:52] LABS: TOT PROT 5.3 g/dl (6.4-8.2)
[2022-10-20 07:53] LABS: ALK PHOS 102 U/L (45-117)
[2022-10-20 08:16] LABS: CALCIUM 6.3 mg/dL (8.5-10.1); CREATININE 10.1 mg/dL (0.55-1.3)
[2022-10-20 09:03] LABS: ANISOCYTOSIS 0; HELMET CELLS 0; HOWELL-JOLLY BODIES 0; MACROCYTOSIS 0; OVALOCYTE 0; ROULEAU 0; SICKELED CELLS 0; TARGET CELLS 0; TEAR DROP CELLS 0; TOXIC GRANULATION 0
[2022-10-20] MEDS: CEFTRIAXONE 2 GM in DEXTROSE 5%-WATER 100 ML IVPB SCH (09:29)
[2022-10-20] MEDS: PANTOPRAZOLE SODIUM 40 MG VIAL IV SCH (09:29)
[2022-10-20] MEDS: FOLIC ACID 1 MG TABLET (FP) PO SCH (09:30)
[2022-10-20] MEDS: MUPIROCIN 2% TOPICAL OINTMENT FOR DECOLONIZATION NS SCH ×2 (09:30→21:54)
[2022-10-20] MEDS: LACTULOSE 20 GM/30 ML UDC (FOR ORAL USE ONLY) PO SCH ×2 (09:30→21:54)
[2022-10-20] MEDS: NICOTINE 14 MG/24 HOURS TOPICAL PATCH TD SCH (09:30)
[2022-10-20] MEDS ORDERED: DEXMEDETOMIDINE PREMIX 400 MCG/100 ML BAG IVPB ONE (10:29)
[2022-10-20] MEDS: DEXMEDETOMIDINE PREMIX 400 MCG/100 ML BAG IVPB SCH (10:47)
[2022-10-20] MEDS ORDERED: SODIUM CHLORIDE 250 ML IV PRN (12:17)
[2022-10-20] MEDS: CHLORHEXIDINE GLUCONATE 4% CLEANSER FOR DECOLONIZATION TP SCH (21:54)
[2022-10-21] MEDS: LORazepam 1 MG TABLET PO SCH ×3 (04:48→16:42)
[2022-10-21] MEDS: SODIUM BICARBONATE 650 MG TABLET PO SCH ×3 (05:14→22:24)
[2022-10-21] MEDS: LACTATED RINGERS SOLUTION 1,000 ML/1,000 ML INFUS.BAG IV SCH ×2 (05:17→16:19)
[2022-10-21 07:05] LABS: INR 1.13 (0.83-1.09); PROTHROMBIN TIME (PATIENT) 13.1 SEC (9.7-13.0)
[2022-10-21 07:06] LABS: HEMOGLOBIN 9.5 GM/dL (11.7-16.9); MCH 30.1 pg (25.7-33.7); MCHC 35.1 g/dl (32.0-35.9); MEAN CELL VOLUME 85.8 fl (80-96); MEAN PLT VOLUME 10.7 fl (7.5-11.1); PLATELET COUNT 159 10^3/uL (134-434); RBC 3.15 M/mm3 (4.00-5.60); RDW 14.9 % (11.9-15.9); WHITE BLOOD COUNT 11.4 K/mm3 (4.0-10.0)
[2022-10-21 07:15] LABS: CHLORIDE 109 mmol/L (98-107); POTASSIUM 4.4 mmol/L (3.5-5.1); SODIUM 136 mmol/L (136-145)
[2022-10-21 07:20] LABS: ALBUMIN 1.3 g/dl (3.4-5.0)
[2022-10-21 07:21] LABS: ANION GAP 10 MMOL/L (8-16); BLOOD UREA NITROGEN 93.8 mg/dL (7-18); CO2 17 mmol/L (21-32); GLUCOSE,RANDOM 141 mg/dL (74-106)
[2022-10-21 07:24] LABS: SGOT/AST 111 U/L (15-37)
[2022-10-21 07:25] LABS: TOT PROT 5.2 g/dl (6.4-8.2)
[2022-10-21 07:35] LABS: ALK PHOS 145 U/L (45-117); BILIRUBIN,TOTAL 3.1 mg/dL (0.2-1); CALCIUM 6.5 mg/dL (8.5-10.1); CREATININE 10.1 mg/dL (0.55-1.3); MAGNESIUM 2.2 mg/dL (1.8-2.4); SGPT/ALT 43 U/L (13-61)
[2022-10-21] MEDS: DEXMEDETOMIDINE PREMIX 400 MCG/100 ML BAG IVPB SCH ×2 (07:41→13:28)
[2022-10-21] MEDS: CALCIUM ACETATE 667 MG CAPSULE (FP) PO SCH ×3 (09:03→16:42)
[2022-10-21] MEDS: PANTOPRAZOLE SODIUM 40 MG VIAL IV SCH (09:04)
[2022-10-21] MEDS: NICOTINE 14 MG/24 HOURS TOPICAL PATCH TD SCH (09:04)
[2022-10-21] MEDS: LACTULOSE 20 GM/30 ML UDC (FOR ORAL USE ONLY) PO SCH ×2 (09:04→22:23)
[2022-10-21] MEDS: FOLIC ACID 1 MG TABLET (FP) PO SCH (09:04)
[2022-10-21] MEDS: MUPIROCIN 2% TOPICAL OINTMENT FOR DECOLONIZATION NS SCH (09:04)
[2022-10-21] MEDS: CEFTRIAXONE 2 GM in DEXTROSE 5%-WATER 100 ML IVPB SCH (09:15)
[2022-10-21] MEDS ORDERED: morphine SULFATE 4 MG/ML VIAL IVPUSH ONE (11:22)
[2022-10-21 11:44] LABS: ANISOCYTOSIS 2+; MACROCYTOSIS 0; TARGET CELLS 2+; TEAR DROP CELLS 2+; TOXIC GRANULATION 1+
[2022-10-21] MEDS ORDERED: ACETAMINOPHEN 1000 MG/100 ML BAG IVPB ONE (16:21)
[2022-10-21] MEDS ORDERED: LORazepam 1 MG TABLET PO PRN (20:03)
[2022-10-21] MEDS ORDERED: LACTATED RINGERS SOLUTION 1,000 ML/1,000 ML INFUS.BAG IV SCH (20:03)
[2022-10-21] MEDS ORDERED: ONDANSETRON 4 MG/2 ML VIAL IVPUSH PRN (20:03)
[2022-10-21] MEDS ORDERED: SODIUM CHLORIDE 250 ML IV PRN (20:03)
[2022-10-21] MEDS ORDERED: MUPIROCIN 2% TOPICAL OINTMENT FOR DECOLONIZATION NS SCH (22:00)
[2022-10-21] MEDS ORDERED: CHLORHEXIDINE GLUCONATE 4% CLEANSER FOR DECOLONIZATION TP SCH (22:00)
[2022-10-21] MEDS ORDERED: LORazepam 1 MG TABLET PO SCH (23:00)
[2022-10-22] MEDS ORDERED: LORazepam 0.5 MG TABLET PO PRN ×2
[2022-10-22] MEDS ORDERED: LORazepam 0.5 MG TABLET PO SCH (05:00)
[2022-10-22] MEDS: SODIUM BICARBONATE 650 MG TABLET PO SCH ×2 (05:14→13:08)
[2022-10-22] MEDS: LORazepam 0.5 MG TABLET PO SCH ×4 (05:14→23:16)
[2022-10-22] MEDS: CALCIUM ACETATE 667 MG CAPSULE (FP) PO SCH ×3 (09:42→17:25)
[2022-10-22] MEDS: FOLIC ACID 1 MG TABLET (FP) PO SCH (09:42)
[2022-10-22] MEDS: NICOTINE 14 MG/24 HOURS TOPICAL PATCH TD SCH ×2 (09:42→10:17)
[2022-10-22] MEDS: PANTOPRAZOLE SODIUM 40 MG VIAL IV SCH (09:43)
[2022-10-22] MEDS: CEFTRIAXONE 2 GM in DEXTROSE 5%-WATER 100 ML IVPB SCH (09:57)
[2022-10-22] MEDS: LACTULOSE 20 GM/30 ML UDC (FOR ORAL USE ONLY) PO SCH ×2 (10:20→23:16)
[2022-10-22] MEDS ORDERED: SODIUM CHLORIDE 250 ML IV PRN (11:42)
[2022-10-22 11:54] LABS: BASO % 0.6 % (0-2.0); EOS % 0.4 % (0-4.5); HEMATOCRIT 25.8 % (35.4-49); HEMOGLOBIN 8.8 GM/dL (11.7-16.9); LYMPH % 8.3 % (8-40); MCH 29.3 pg (25.7-33.7); MCHC 33.9 g/dl (32.0-35.9); MEAN CELL VOLUME 86.4 fl (80-96); MEAN PLT VOLUME 9.3 fl (7.5-11.1); MONO % 6.4 % (3.8-10.2); NEUT % 84.3 % (42.8-82.8); PLATELET COUNT 185 10^3/uL (134-434); RBC 2.99 M/mm3 (4.00-5.60); RDW 14.9 % (11.9-15.9); WHITE BLOOD COUNT 10.4 K/mm3 (4.0-10.0)
[2022-10-22 12:20] LABS: CALCIUM 7.3 mg/dL (8.5-10.1)
[2022-10-22 12:21] LABS: ALBUMIN 1.4 g/dl (3.4-5.0)
[2022-10-22 12:24] LABS: CREATININE 6.8 mg/dL (0.55-1.3); PHOSPHOROUS 3.8 mg/dL (2.5-4.9)
[2022-10-22 12:25] LABS: BILIRUBIN,TOTAL 2.5 mg/dL (0.2-1); TOT PROT 5.6 g/dl (6.4-8.2)
[2022-10-22 12:33] LABS: BLOOD UREA NITROGEN 60.4 mg/dL (7-18)
[2022-10-22] MEDS: INSULIN SLIDING SCALE (NOVOLOG) 1 VIAL SQ SCH (17:33)
[2022-10-23] MEDS ORDERED: LORazepam 0.5 MG TABLET PO ONE ×2 (05:00)
[2022-10-23] MEDS: INSULIN SLIDING SCALE (NOVOLOG) 1 VIAL SQ SCH ×3 (06:11→17:31)
[2022-10-23 10:40] LABS: EOS % 0.2 % (0-4.5); HEMATOCRIT 25.3 % (35.4-49); HEMOGLOBIN 8.7 GM/dL (11.7-16.9); LYMPH % 11.5 % (8-40); MCHC 34.6 g/dl (32.0-35.9); MEAN CELL VOLUME 86.7 fl (80-96); MEAN PLT VOLUME 9.2 fl (7.5-11.1); MONO % 8.6 % (3.8-10.2); NEUT % 78.7 % (42.8-82.8); PLATELET COUNT 201 10^3/uL (134-434); RBC 2.92 M/mm3 (4.00-5.60); RDW 14.7 % (11.9-15.9); WHITE BLOOD COUNT 9.1 K/mm3 (4.0-10.0)
[2022-10-23] MEDS: FOLIC ACID 1 MG TABLET (FP) PO SCH (10:41)
[2022-10-23] MEDS: LACTULOSE 20 GM/30 ML UDC (FOR ORAL USE ONLY) PO SCH ×2 (10:41→22:05)
[2022-10-23] MEDS: CALCIUM ACETATE 667 MG CAPSULE (FP) PO SCH ×4 (10:41→17:30)
[2022-10-23] MEDS: PANTOPRAZOLE SODIUM 40 MG VIAL IV SCH (10:41)
[2022-10-23] MEDS: amLODIPine BESYLATE 5 MG TABLET (FP) PO SCH (10:41)
[2022-10-23] MEDS: CEFTRIAXONE 2 GM in DEXTROSE 5%-WATER 100 ML IVPB SCH (10:43)
[2022-10-23] MEDS: NICOTINE 14 MG/24 HOURS TOPICAL PATCH TD SCH ×2 (10:43→11:05)
[2022-10-23 11:01] LABS: POTASSIUM 3.9 mmol/L (3.5-5.1)
[2022-10-23 11:07] LABS: ALBUMIN 1.6 g/dl (3.4-5.0); CALCIUM 8.1 mg/dL (8.5-10.1)
[2022-10-23 11:10] LABS: CREATININE 3.7 mg/dL (0.55-1.3)
[2022-10-23 11:12] LABS: BILIRUBIN,TOTAL 2.7 mg/dL (0.2-1)
[2022-10-23 14:57] VITALS: BMI 25.8
[2022-10-24] MEDS: INSULIN SLIDING SCALE (NOVOLOG) 1 VIAL SQ SCH ×3 (06:02→17:12)
[2022-10-24] MEDS: CALCIUM ACETATE 667 MG CAPSULE (FP) PO SCH ×3 (08:45→17:10)
[2022-10-24] MEDS: CEFTRIAXONE 2 GM in DEXTROSE 5%-WATER 100 ML IVPB SCH (09:54)
[2022-10-24] MEDS: PANTOPRAZOLE SODIUM 40 MG VIAL IV SCH (09:54)
[2022-10-24] MEDS: LACTULOSE 20 GM/30 ML UDC (FOR ORAL USE ONLY) PO SCH ×2 (09:54→21:32)
[2022-10-24] MEDS: NICOTINE 14 MG/24 HOURS TOPICAL PATCH TD SCH ×2 (09:54→09:58)
[2022-10-24] MEDS: FOLIC ACID 1 MG TABLET (FP) PO SCH (09:56)
[2022-10-24] MEDS: amLODIPine BESYLATE 5 MG TABLET (FP) PO SCH (09:56)
[2022-10-24 10:11] LABS: MCHC 34.7 g/dl (32.0-35.9); MEAN CELL VOLUME 86.4 fl (80-96); MEAN PLT VOLUME 9.1 fl (7.5-11.1); PLATELET COUNT 196 10^3/uL (134-434); RBC 2.67 M/mm3 (4.00-5.60); WHITE BLOOD COUNT 8.4 K/mm3 (4.0-10.0)
[2022-10-24 10:28] LABS: POTASSIUM 3.8 mmol/L (3.5-5.1)
[2022-10-24 10:34] LABS: ALBUMIN 1.7 g/dl (3.4-5.0); CALCIUM 7.8 mg/dL (8.5-10.1)
[2022-10-24 10:35] LABS: BLOOD UREA NITROGEN 32.6 mg/dL (7-18)
[2022-10-24 10:37] LABS: CREATININE 3.3 mg/dL (0.55-1.3)
[2022-10-24 10:39] LABS: BILIRUBIN,TOTAL 2.3 mg/dL (0.2-1); TOT PROT 6.1 g/dl (6.4-8.2)
[2022-10-24] MEDS ORDERED: MELATONIN 5 MG TABLETS PO ONE (22:30)
[2022-10-25] MEDS: INSULIN SLIDING SCALE (NOVOLOG) 1 VIAL SQ SCH ×3 (06:49→17:26)
[2022-10-25] MEDS: CALCIUM ACETATE 667 MG CAPSULE (FP) PO SCH ×3 (08:46→17:50)
[2022-10-25] MEDS: amLODIPine BESYLATE 5 MG TABLET (FP) PO SCH (09:11)
[2022-10-25] MEDS: NICOTINE 14 MG/24 HOURS TOPICAL PATCH TD SCH (09:11)
[2022-10-25] MEDS: LACTULOSE 20 GM/30 ML UDC (FOR ORAL USE ONLY) PO SCH ×3 (09:11→21:31)
[2022-10-25] MEDS: FOLIC ACID 1 MG TABLET (FP) PO SCH (09:11)
[2022-10-25 10:14] LABS: BASO % 0.7 % (0-2.0); EOS % 0.3 % (0-4.5); HEMATOCRIT 22.6 % (35.4-49); HEMOGLOBIN 7.6 GM/dL (11.7-16.9); LYMPH % 15.4 % (8-40); MCH 29.4 pg (25.7-33.7); MCHC 33.7 g/dl (32.0-35.9); MEAN CELL VOLUME 87.1 fl (80-96); MEAN PLT VOLUME 9.1 fl (7.5-11.1); MONO % 6.7 % (3.8-10.2); NEUT % 76.9 % (42.8-82.8); PLATELET COUNT 200 10^3/uL (134-434); RBC 2.59 M/mm3 (4.00-5.60); WHITE BLOOD COUNT 9.1 K/mm3 (4.0-10.0)
[2022-10-25 10:15] LABS: INR 1.19 (0.83-1.09); PROTHROMBIN TIME (PATIENT) 13.8 SEC (9.7-13.0)
[2022-10-25 10:17] LABS: ACTIVATED PTT 29.8 SECONDS (25.2-36.5)
[2022-10-25 10:29] LABS: POTASSIUM 4.2 mmol/L (3.5-5.1)
[2022-10-25 10:36] LABS: ALBUMIN 1.6 g/dl (3.4-5.0); BLOOD UREA NITROGEN 31.7 mg/dL (7-18); CALCIUM 7.9 mg/dL (8.5-10.1); MAGNESIUM 1.7 mg/dL (1.8-2.4)
[2022-10-25 10:39] LABS: CREATININE 2.6 mg/dL (0.55-1.3)
[2022-10-25 10:41] LABS: TOT PROT 5.7 g/dl (6.4-8.2)
[2022-10-25] MEDS: PANTOPRAZOLE SODIUM 40 MG VIAL IV SCH (10:57)
[2022-10-25] MEDS: CEFTRIAXONE 2 GM in DEXTROSE 5%-WATER 100 ML IVPB SCH (10:59)
[2022-10-25] MEDS ORDERED: SODIUM CHLORIDE 0.45% 1,000 ML IV SCH (11:15)
[2022-10-25 19:00] LABS: CALCIUM 7.7 mg/dL (8.5-10.1)
[2022-10-25 19:01] LABS: BLOOD UREA NITROGEN 28.9 mg/dL (7-18)
[2022-10-25 19:04] LABS: CREATININE 2.5 mg/dL (0.55-1.3)
[2022-10-26] MEDS ORDERED: MELATONIN 5 MG TABLETS PO ONE (01:26)
[2022-10-26] MEDS: INSULIN SLIDING SCALE (NOVOLOG) 1 VIAL SQ SCH ×3 (06:52→17:47)
[2022-10-26 09:46] LABS: POTASSIUM 4.1 mmol/L (3.5-5.1)
[2022-10-26] MEDS: CALCIUM ACETATE 667 MG CAPSULE (FP) PO SCH ×3 (09:47→18:22)
[2022-10-26] MEDS: NICOTINE 14 MG/24 HOURS TOPICAL PATCH TD SCH (09:48)
[2022-10-26] MEDS: FOLIC ACID 1 MG TABLET (FP) PO SCH (09:48)
[2022-10-26] MEDS: PANTOPRAZOLE SODIUM 40 MG VIAL IV SCH (09:48)
[2022-10-26] MEDS: LACTULOSE 20 GM/30 ML UDC (FOR ORAL USE ONLY) PO SCH (09:48)
[2022-10-26] MEDS: CEFTRIAXONE 2 GM in DEXTROSE 5%-WATER 100 ML IVPB SCH (09:48)
[2022-10-26] MEDS: amLODIPine BESYLATE 5 MG TABLET (FP) PO SCH (09:48)
[2022-10-26 09:55] LABS: ALBUMIN 1.6 g/dl (3.4-5.0); BLOOD UREA NITROGEN 27.7 mg/dL (7-18)
[2022-10-26 09:56] LABS: CALCIUM 7.8 mg/dL (8.5-10.1)
[2022-10-26 09:58] LABS: CREATININE 2.2 mg/dL (0.55-1.3)
[2022-10-26 10:00] LABS: BILIRUBIN,TOTAL 1.9 mg/dL (0.2-1)
[2022-10-26 10:02] LABS: TOT PROT 5.6 g/dl (6.4-8.2)
[2022-10-26] MEDS ORDERED: PEG 3350/NA SULF BICARB CL/KCL 4000 ML SOLN.RECON PO ONE (11:30)
[2022-10-26] MEDS ORDERED: DEXTROSE 5%-WATER - 1,000 ML IV SCH (15:00)
[2022-10-26] MEDS ORDERED: BISACODYL 5 MG TABLET.DR (FP) PO ONE (20:00)
[2022-10-26] MEDS ORDERED: amLODIPine BESYLATE 5 MG TABLET (FP) PO ONE (23:02)
[2022-10-27] MEDS: INSULIN SLIDING SCALE (NOVOLOG) 1 VIAL SQ SCH ×3 (06:56→16:54)
[2022-10-27 08:19] LABS: INR 1.24 (0.83-1.09); PROTHROMBIN TIME (PATIENT) 14.4 SEC (9.7-13.0)
[2022-10-27 08:27] LABS: BASO % 0.7 % (0-2.0); EOS % 0.4 % (0-4.5); HEMATOCRIT 23.9 % (35.4-49); HEMOGLOBIN 8.1 GM/dL (11.7-16.9); LYMPH % 21.4 % (8-40); MCH 29.4 pg (25.7-33.7); MCHC 33.9 g/dl (32.0-35.9); MEAN CELL VOLUME 86.8 fl (80-96); MONO % 5.1 % (3.8-10.2); NEUT % 72.4 % (42.8-82.8); PLATELET COUNT 144 10^3/uL (134-434); POTASSIUM 3.6 mmol/L (3.5-5.1); RBC 2.76 M/mm3 (4.00-5.60); RDW 14.8 % (11.9-15.9); WHITE BLOOD COUNT 9.2 K/mm3 (4.0-10.0)
[2022-10-27 08:31] LABS: ALBUMIN 1.7 g/dl (3.4-5.0)
[2022-10-27 08:36] LABS: BILIRUBIN,TOTAL 1.8 mg/dL (0.2-1)
[2022-10-27] MEDS ORDERED: LACTULOSE 20 GM/30 ML UDC (FOR ORAL USE ONLY) PO SCH (10:00)
[2022-10-27] MEDS: amLODIPine BESYLATE 5 MG TABLET (FP) PO SCH (12:45)
[2022-10-27] MEDS: FOLIC ACID 1 MG TABLET (FP) PO SCH (12:46)
[2022-10-27] MEDS: PANTOPRAZOLE SODIUM 40 MG VIAL IV SCH (12:47)
[2022-10-27] MEDS: NICOTINE 14 MG/24 HOURS TOPICAL PATCH TD SCH ×2 (12:49→23:11)
[2022-10-27] MEDS: CALCIUM ACETATE 667 MG CAPSULE (FP) PO SCH ×3 (12:50→16:55)
[2022-10-27] MEDS: AMOX TR/POT CLAV 875MG/125MG TABLETS (FP) PO SCH (16:55)
[2022-10-27] MEDS ORDERED: MELATONIN 5 MG TABLETS PO ONE (23:41)
[2022-10-27] MEDS ORDERED: ACETAMINOPHEN 325 MG TABLET (FP) PO ONE (23:45)
[2022-10-28 09:37] LABS: BASO % 1.1 % (0-2.0); EOS % 0.4 % (0-4.5); HEMATOCRIT 25.2 % (35.4-49); HEMOGLOBIN 8.9 GM/dL (11.7-16.9); LYMPH % 17.6 % (8-40); MCH 30.3 pg (25.7-33.7); MCHC 35.2 g/dl (32.0-35.9); MEAN CELL VOLUME 86.1 fl (80-96); MEAN PLT VOLUME 9.4 fl (7.5-11.1); MONO % 5.3 % (3.8-10.2); NEUT % 75.6 % (42.8-82.8); PLATELET COUNT 142 10^3/uL (134-434); RBC 2.92 M/mm3 (4.00-5.60); RDW 14.6 % (11.9-15.9); WHITE BLOOD COUNT 8.8 K/mm3 (4.0-10.0)
[2022-10-28] MEDS: amLODIPine BESYLATE 5 MG TABLET (FP) PO SCH (09:47)
[2022-10-28] MEDS: AMOX TR/POT CLAV 875MG/125MG TABLETS (FP) PO SCH ×2 (09:47→16:39)
[2022-10-28] MEDS: PANTOPRAZOLE SODIUM 40 MG VIAL IV SCH (09:48)
[2022-10-28] MEDS: FOLIC ACID 1 MG TABLET (FP) PO SCH (09:48)
[2022-10-28] MEDS: CALCIUM ACETATE 667 MG CAPSULE (FP) PO SCH ×3 (09:48→16:39)
[2022-10-28] MEDS: NICOTINE 14 MG/24 HOURS TOPICAL PATCH TD SCH ×2 (09:48→10:51)
[2022-10-28 09:53] LABS: POTASSIUM 3.7 mmol/L (3.5-5.1)
[2022-10-28 09:54] LABS: CALCIUM 7.6 mg/dL (8.5-10.1)
[2022-10-28 09:55] LABS: ALBUMIN 1.8 g/dl (3.4-5.0)
[2022-10-28 09:58] LABS: CREATININE 1.9 mg/dL (0.55-1.3)
[2022-10-28 10:00] LABS: TOT PROT 6.1 g/dl (6.4-8.2)
[2022-10-28] MEDS: INSULIN SLIDING SCALE (NOVOLOG) 1 VIAL SQ SCH ×3 (11:04→17:04)
[2022-10-28 17:07] LABS: GLIADIN ANTIBODY IGA 8 units (0-19); GLIADIN ANTIBODY IGG 5 units (0-19); TRANSGLUTAMINASE IGG < 2 U/mL (0-5)
[2022-10-29] MEDS: INSULIN SLIDING SCALE (NOVOLOG) 1 VIAL SQ SCH (06:22)
[2022-10-29] MEDS: AMOX TR/POT CLAV 875MG/125MG TABLETS (FP) PO SCH (08:24)
[2022-10-29] MEDS: CALCIUM ACETATE 667 MG CAPSULE (FP) PO SCH (08:24)
[2022-10-29] MEDS: FOLIC ACID 1 MG TABLET (FP) PO SCH (09:29)
[2022-10-29] MEDS: amLODIPine BESYLATE 5 MG TABLET (FP) PO SCH (09:29)
[2022-10-29] MEDS: PANTOPRAZOLE SODIUM 40 MG VIAL IV SCH (09:29)
[2022-10-29] MEDS: NICOTINE 14 MG/24 HOURS TOPICAL PATCH TD SCH ×2 (09:29→09:43)
[2022-10-29 09:31] LABS: BASO % 1.2 % (0-2.0); EOS % 0.5 % (0-4.5); HEMOGLOBIN 8.4 GM/dL (11.7-16.9); LYMPH % 18.7 % (8-40); MCH 30.1 pg (25.7-33.7); MCHC 34.8 g/dl (32.0-35.9); MEAN CELL VOLUME 86.4 fl (80-96); MEAN PLT VOLUME 9.7 fl (7.5-11.1); MONO % 6.3 % (3.8-10.2); NEUT % 73.3 % (42.8-82.8); PLATELET COUNT 129 10^3/uL (134-434); RBC 2.78 M/mm3 (4.00-5.60); RDW 14.5 % (11.9-15.9); WHITE BLOOD COUNT 7.8 K/mm3 (4.0-10.0)
[2022-10-29 09:52] LABS: POTASSIUM 3.6 mmol/L (3.5-5.1)
[2022-10-29 10:06] LABS: ALBUMIN 1.8 g/dl (3.4-5.0); BLOOD UREA NITROGEN 19.6 mg/dL (7-18)
[2022-10-29 10:08] LABS: CREATININE 1.8 mg/dL (0.55-1.3)
[2022-10-29 10:10] LABS: BILIRUBIN,TOTAL 1.7 mg/dL (0.2-1); TOT PROT 5.9 g/dl (6.4-8.2)
[2022-10-29 14:05] VITALS: BP 141/84; PULSE 107; RESP 18; TEMP 98.6
== END 2022-10-29 16:30 | disposition home or self-care (01) | DRG 720 ==
LOC: JER 18:46 → JERBED 19:32 → JICU 22:16 → J5S 10-21 18:43
PROVIDERS: ADMIT Internal Medicine Pulmonary Disease
PROC: 30233N1 Transfusion of Nonautologous Red Blood Cells into Peripheral Vein, Percutaneous Approach (ICD-10-PCS; 2022-10-16)
PROC: 05HM33Z Insertion of Infusion Device into Right Internal Jugular Vein, Percutaneous Approach (ICD-10-PCS; principal; 2022-10-21)
PROC: B543ZZA Ultrasonography of Right Jugular Veins, Guidance (ICD-10-PCS; 2022-10-21)
PROC: 0DJD8ZZ Inspection of Lower Intestinal Tract, Via Natural or Artificial Opening Endoscopic (ICD-10-PCS; 2022-10-27)
PROC: 0DB98ZX Excision of Duodenum, Via Natural or Artificial Opening Endoscopic, Diagnostic (ICD-10-PCS; 2022-10-27)
PROC: 0DB68ZX Excision of Stomach, Via Natural or Artificial Opening Endoscopic, Diagnostic (ICD-10-PCS; 2022-10-27)
DX: A41.50 Gram-negative sepsis, unspecified (principal); R65.21 Severe sepsis with septic shock; N17.9 Acute kidney failure, unspecified; G93.41 Metabolic encephalopathy; R42 Dizziness and giddiness; K92.2 Gastrointestinal hemorrhage, unspecified; I10 Essential (primary) hypertension; F17.210 Nicotine dependence, cigarettes, uncomplicated; E11.9 Type 2 diabetes mellitus without complications; D72.829 Elevated white blood cell count, unspecified; H91.92 Unspecified hearing loss, left ear; J44.9 Chronic obstructive pulmonary disease, unspecified; K59.00 Constipation, unspecified; F31.9 Bipolar disorder, unspecified; F32.A Depression, unspecified; M10.9 Gout, unspecified; F25.9 Schizoaffective disorder, unspecified; D64.9 Anemia, unspecified; I95.9 Hypotension, unspecified; K72.00 Acute and subacute hepatic failure without coma; E80.6 Other disorders of bilirubin metabolism; D75.839 Thrombocytosis, unspecified; R74.01 Elevation of levels of liver transaminase levels; R50.9 Fever, unspecified; E87.1 Hypo-osmolality and hyponatremia; F10.10 Alcohol abuse, uncomplicated; N39.0 Urinary tract infection, site not specified; B96.20 Unspecified Escherichia coli [E. coli] as the cause of diseases classified elsewhere; K70.10 Alcoholic hepatitis without ascites; K83.8 Other specified diseases of biliary tract; K64.4 Residual hemorrhoidal skin tags; K29.40 Chronic atrophic gastritis without bleeding; I89.0 Lymphedema, not elsewhere classified
CPT/HCPCS: 0241U-QW; 36415; 36430; 36511; 71045-TC-FY; 71250-TC; 74176-TC; 74181-TC; 76700-TC; 80048; 80053; 80061; 80076; 80307; 81003; 82105; 82140; 82150; 82248; 82272; 82550; 82553; 82570; 82728; 82784; 82803; 82962; 83036; 83516; 83540; 83550; 83605; 83690; 83735; 84100; 84300; 84436; 84443; 85025; 85027; 85045; 85610; 85730; 86301; 86704; 86705; 86706; 86707; 86708; 86850; 86900; 86901; 86922; 87040; 87086; 87186; 87340; 87350; 87389; 87517; 87522; 88305-TC; 93005; 93010; 93976; 97116-GP; 97161-GP; 99285-25; J3490; P9016; P9038; P9058

== ENCOUNTER 2022-11-04 12:17 | Inpatient (IN) | payer OTHER ==
[2022-11-04] MEDS ORDERED: ACETAMINOPHEN 325 MG TABLET (FP) PO ONE (13:06)
[2022-11-04] MEDS ORDERED: ACETAMINOPHEN 325 MG TABLET (FP) ONE (13:08)
[2022-11-04 14:05] LABS: HEMATOCRIT 20.8 % (35.4-49); HEMOGLOBIN 7.1 GM/dL (11.7-16.9); MCH 29.2 pg (25.7-33.7); MCHC 33.9 g/dl (32.0-35.9); MEAN CELL VOLUME 86.2 fl (80-96); PLATELET COUNT 285 10^3/uL (134-434); RBC 2.42 M/mm3 (4.00-5.60); RDW 14.3 % (11.9-15.9); WHITE BLOOD COUNT 8.4 K/mm3 (4.0-10.0)
[2022-11-04 14:12] LABS: INR 1.36 (0.83-1.09); PROTHROMBIN TIME (PATIENT) 15.7 SEC (9.7-13.0)
[2022-11-04 14:14] LABS: ACTIVATED PTT 32.6 SECONDS (25.2-36.5)
[2022-11-04 14:25] LABS: POTASSIUM 3.7 mmol/L (3.5-5.1)
[2022-11-04 14:27] LABS: ALBUMIN 2.1 g/dl (3.4-5.0); BLOOD UREA NITROGEN 11.1 mg/dL (7-18); CALCIUM 7.3 mg/dL (8.5-10.1)
[2022-11-04 14:30] LABS: CREATININE 0.9 mg/dL (0.55-1.3)
[2022-11-04 14:32] LABS: BILIRUBIN,TOTAL 1.7 mg/dL (0.2-1)
[2022-11-04 14:35] LABS: N-TERMINAL BNP 1333.1 pg/ml (5-125)
[2022-11-04 16:24] LABS: EPI CELLS 21 /uL (0-25.1); HYALINE CASTS 0 /uL (0-3.1); PH,URINE 5.5 (5.0-8.0); URINE APPEARANCE CLEAR; URINE BACTERIA 25 /uL (0-1359); URINE BILIRUBIN NEGATIVE (NEGATIVE); URINE COLOR YELLOW; URINE GLUCOSE (UA) NEGATIVE (NEGATIVE); URINE KETONE 1+ (NEGATIVE); URINE LEUK ESTERASE 1+ (NEGATIVE); URINE NITRITE NEGATIVE (NEGATIVE); URINE PROTEIN 1+ (NEGATIVE); URINE RBC 14 /uL (0-23.9); URINE UROBILINOGEN 0.2 mg/dL (0.2-1.0); URINE WBC 129 /uL (0-25.8)
[2022-11-04] MEDS ORDERED: FUROSEMIDE 40 MG/4 ML INJECTABLE VIAL ONE (18:00)
[2022-11-04 18:22] VITALS: BMI 23.2
[2022-11-04] MEDS: OLANZapine 10 MG TABLET PO SCH (21:30)
[2022-11-04] MEDS: ACETAMINOPHEN 325 MG TABLET (FP) PO PRN (21:30)
[2022-11-05] MEDS: ACETAMINOPHEN 325 MG TABLET (FP) PO PRN ×3 (05:10→22:02)
[2022-11-05 08:43] LABS: CHLORIDE 108 mmol/L (98-107); POTASSIUM 3.5 mmol/L (3.5-5.1); SODIUM 141 mmol/L (136-145)
[2022-11-05 08:50] LABS: ANION GAP 7 MMOL/L (8-16); BLOOD UREA NITROGEN 11.2 mg/dL (7-18); CO2 25 mmol/L (21-32); GLUCOSE,RANDOM 88 mg/dL (74-106)
[2022-11-05 08:53] LABS: SGOT/AST 219 U/L (15-37); SGPT/ALT 85 U/L (13-61)
[2022-11-05 08:54] LABS: BILIRUBIN,TOTAL 1.5 mg/dL (0.2-1)
[2022-11-05 08:55] LABS: TOT PROT 6.1 g/dl (6.4-8.2)
[2022-11-05 08:58] LABS: ALBUMIN 1.6 g/dl (3.4-5.0); ALK PHOS 274 U/L (45-117); CALCIUM 6.8 mg/dL (8.5-10.1)
[2022-11-05 09:02] LABS: BASO % 0.5 % (0-2.0); EOS % 1.2 % (0-4.5); HEMATOCRIT 18.9 % (35.4-49); LYMPH % 19.2 % (8-40); MCHC 34.3 g/dl (32.0-35.9); MEAN CELL VOLUME 84.5 fl (80-96); MONO % 11.2 % (3.8-10.2); NEUT % 67.9 % (42.8-82.8); PLATELET COUNT 298 10^3/uL (134-434); RBC 2.23 M/mm3 (4.00-5.60); RDW 14.7 % (11.9-15.9); WHITE BLOOD COUNT 6.8 K/mm3 (4.0-10.0)
[2022-11-05 09:22] LABS: HEMOGLOBIN 6.5 GM/dL (11.7-16.9)
[2022-11-05] MEDS: PANTOPRAZOLE 40 MG TABLET PO SCH (09:25)
[2022-11-05] MEDS: MULTIVITAMINS (DAILY MVI) TABLET (FP) PO SCH (09:25)
[2022-11-05] MEDS: FOLIC ACID 1 MG TABLET (FP) PO SCH (09:25)
[2022-11-05] MEDS: THIAMINE HCL 100 MG TABLET (FP) PO SCH (09:25)
[2022-11-05] MEDS ORDERED: IBUPROFEN 600 MG TABLET (FP) PO ONE (10:00)
[2022-11-05] MEDS ORDERED: POTASSIUM CHLORIDE ORAL LIQUID 20 MEQ/15 ML PO ONE (16:16)
[2022-11-05] MEDS ORDERED: FUROSEMIDE 40 MG TABLET (FP) PO ONE (16:16)
[2022-11-05] MEDS: CALCIUM 500MG/VIT-D 200 UNITS COMBO TABLET (FP) PO SCH (16:33)
[2022-11-05] MEDS: OLANZapine 10 MG TABLET PO SCH (22:02)
[2022-11-05] MEDS: METHYL SALICYLATE/MENTHOL OINT 30 GM TUBE TP PRN (23:21)
[2022-11-06] MEDS: ACETAMINOPHEN 325 MG TABLET (FP) PO PRN (04:31)
[2022-11-06] MEDS ORDERED: methylPREDNISolone NA SUCC 1000 MG/8 ML VIAL IVPB SCH (07:00)
[2022-11-06 09:20] LABS: BASO % 0.8 % (0-2.0); EOS % 1.3 % (0-4.5); HEMATOCRIT 23.5 % (35.4-49); HEMOGLOBIN 7.9 GM/dL (11.7-16.9); LYMPH % 15.6 % (8-40); MCH 28.7 pg (25.7-33.7); MCHC 33.7 g/dl (32.0-35.9); MEAN CELL VOLUME 85.2 fl (80-96); MEAN PLT VOLUME 8.9 fl (7.5-11.1); MONO % 11.4 % (3.8-10.2); NEUT % 70.9 % (42.8-82.8); PLATELET COUNT 377 10^3/uL (134-434); RBC 2.76 M/mm3 (4.00-5.60); RDW 14.4 % (11.9-15.9); WHITE BLOOD COUNT 7.2 K/mm3 (4.0-10.0)
[2022-11-06] MEDS: methylPREDNISolone NA SUCC 40 MG/1 ML VIAL IVPB SCH (09:34)
[2022-11-06] MEDS: FOLIC ACID 1 MG TABLET (FP) PO SCH (09:35)
[2022-11-06] MEDS: THIAMINE HCL 100 MG TABLET (FP) PO SCH (09:35)
[2022-11-06] MEDS: MULTIVITAMINS (DAILY MVI) TABLET (FP) PO SCH (09:35)
[2022-11-06] MEDS: CALCIUM 500MG/VIT-D 200 UNITS COMBO TABLET (FP) PO SCH (09:35)
[2022-11-06] MEDS: PANTOPRAZOLE 40 MG TABLET PO SCH (09:35)
[2022-11-06 09:48] LABS: POTASSIUM 4.1 mmol/L (3.5-5.1)
[2022-11-06] MEDS ORDERED: COLCHICINE 0.6 MG CAP PO SCH (10:00)
[2022-11-06 10:05] LABS: ALBUMIN 1.9 g/dl (3.4-5.0)
[2022-11-06 10:06] LABS: BLOOD UREA NITROGEN 11.1 mg/dL (7-18)
[2022-11-06 10:08] LABS: CALCIUM 7.3 mg/dL (8.5-10.1); CREATININE 0.9 mg/dL (0.55-1.3)
[2022-11-06 10:09] LABS: URIC ACID 5.5 mg/dL (2.6-7.2)
[2022-11-06 10:10] LABS: BILIRUBIN,TOTAL 1.4 mg/dL (0.2-1); TOT PROT 6.8 g/dl (6.4-8.2)
[2022-11-06 12:11] LABS: ERYTHROCYTE SEDIMENTATION RATE 111 mm/hr (0-20)
[2022-11-06] MEDS: OLANZapine 10 MG TABLET PO SCH (21:11)
[2022-11-07] MEDS: ACETAMINOPHEN 325 MG TABLET (FP) PO PRN (06:02)
[2022-11-07 09:57] LABS: BASO % 0.1 % (0-2.0); HEMATOCRIT 22.4 % (35.4-49); HEMOGLOBIN 7.7 GM/dL (11.7-16.9); LYMPH % 8.9 % (8-40); MCH 29.2 pg (25.7-33.7); MCHC 34.3 g/dl (32.0-35.9); MEAN CELL VOLUME 84.9 fl (80-96); MEAN PLT VOLUME 9.5 fl (7.5-11.1); MONO % 8.5 % (3.8-10.2); NEUT % 82.5 % (42.8-82.8); PLATELET COUNT 399 10^3/uL (134-434); RBC 2.63 M/mm3 (4.00-5.60); RDW 14.4 % (11.9-15.9); WHITE BLOOD COUNT 9.1 K/mm3 (4.0-10.0)
[2022-11-07 10:14] LABS: POTASSIUM 4.4 mmol/L (3.5-5.1)
[2022-11-07 10:21] LABS: CALCIUM 7.5 mg/dL (8.5-10.1)
[2022-11-07 10:22] LABS: ALBUMIN 1.8 g/dl (3.4-5.0); BLOOD UREA NITROGEN 19.7 mg/dL (7-18)
[2022-11-07 10:26] LABS: BILIRUBIN,TOTAL 1.1 mg/dL (0.2-1)
[2022-11-07 10:27] LABS: TOT PROT 6.8 g/dl (6.4-8.2)
[2022-11-07] MEDS: COLCHICINE 0.6 MG TAB PO SCH (10:43)
[2022-11-07] MEDS: PANTOPRAZOLE 40 MG TABLET PO SCH (10:43)
[2022-11-07] MEDS: CALCIUM 500MG/VIT-D 200 UNITS COMBO TABLET (FP) PO SCH (10:43)
[2022-11-07] MEDS: FOLIC ACID 1 MG TABLET (FP) PO SCH (10:43)
[2022-11-07] MEDS: MULTIVITAMINS (DAILY MVI) TABLET (FP) PO SCH (10:43)
[2022-11-07] MEDS: THIAMINE HCL 100 MG TABLET (FP) PO SCH (10:43)
[2022-11-07] MEDS: methylPREDNISolone NA SUCC 40 MG/1 ML VIAL IVPB SCH (11:04)
[2022-11-07] MEDS: OLANZapine 10 MG TABLET PO SCH (21:13)
[2022-11-08] MEDS: methylPREDNISolone NA SUCC 40 MG/1 ML VIAL IVPB SCH ×2 (04:51→09:37)
[2022-11-08] MEDS: MULTIVITAMINS (DAILY MVI) TABLET (FP) PO SCH (09:37)
[2022-11-08] MEDS: PANTOPRAZOLE 40 MG TABLET PO SCH (09:37)
[2022-11-08] MEDS: FOLIC ACID 1 MG TABLET (FP) PO SCH (09:37)
[2022-11-08] MEDS: THIAMINE HCL 100 MG TABLET (FP) PO SCH (09:37)
[2022-11-08] MEDS: COLCHICINE 0.6 MG TAB PO SCH (09:37)
[2022-11-08] MEDS: CALCIUM 500MG/VIT-D 200 UNITS COMBO TABLET (FP) PO SCH (09:38)
[2022-11-08] MEDS ORDERED: FUROSEMIDE 20 MG TABLET (FP) PO ONE (12:15)
[2022-11-08] MEDS: OLANZapine 10 MG TABLET PO SCH (21:34)
[2022-11-09 08:47] LABS: BASO % 0.5 % (0-2.0); EOS % 0.1 % (0-4.5); HEMATOCRIT 21.9 % (35.4-49); HEMOGLOBIN 7.4 GM/dL (11.7-16.9); LYMPH % 18.5 % (8-40); MCH 28.8 pg (25.7-33.7); MCHC 33.9 g/dl (32.0-35.9); MEAN CELL VOLUME 85.1 fl (80-96); MEAN PLT VOLUME 8.9 fl (7.5-11.1); MONO % 10.7 % (3.8-10.2); NEUT % 70.2 % (42.8-82.8); PLATELET COUNT 421 10^3/uL (134-434); RBC 2.58 M/mm3 (4.00-5.60); RDW 14.9 % (11.9-15.9)
[2022-11-09] MEDS: MULTIVITAMINS (DAILY MVI) TABLET (FP) PO SCH (09:11)
[2022-11-09] MEDS: PANTOPRAZOLE 40 MG TABLET PO SCH (09:11)
[2022-11-09] MEDS: FOLIC ACID 1 MG TABLET (FP) PO SCH (09:11)
[2022-11-09] MEDS: THIAMINE HCL 100 MG TABLET (FP) PO SCH (09:11)
[2022-11-09] MEDS: CALCIUM 500MG/VIT-D 200 UNITS COMBO TABLET (FP) PO SCH (09:11)
[2022-11-09] MEDS: COLCHICINE 0.6 MG TAB PO SCH (09:11)
[2022-11-09 09:19] LABS: CALCIUM 8.1 mg/dL (8.5-10.1)
[2022-11-09 09:20] LABS: ALBUMIN 2.1 g/dl (3.4-5.0); BLOOD UREA NITROGEN 29.2 mg/dL (7-18)
[2022-11-09 09:23] LABS: CREATININE 1.1 mg/dL (0.55-1.3)
[2022-11-09 09:24] LABS: TOT PROT 7.2 g/dl (6.4-8.2)
[2022-11-09] MEDS: methylPREDNISolone NA SUCC 40 MG/1 ML VIAL IVPB SCH (11:33)
[2022-11-09] MEDS: OLANZapine 10 MG TABLET PO SCH (21:53)
[2022-11-09] MEDS: METHYL SALICYLATE/MENTHOL OINT 30 GM TUBE TP PRN (21:58)
[2022-11-10 05:39] VITALS: RESP 18
[2022-11-10] MEDS ORDERED: chlordiazePOXIDE HCL 10 MG CAPSULE PO ONE (06:00)
[2022-11-10] MEDS ORDERED: LORazepam 2 MG/ML SDV VIAL IVPUSH PRN (09:09)
[2022-11-10] MEDS: THIAMINE HCL 100 MG TABLET (FP) PO SCH (09:54)
[2022-11-10] MEDS: CALCIUM 500MG/VIT-D 200 UNITS COMBO TABLET (FP) PO SCH (09:55)
[2022-11-10] MEDS: COLCHICINE 0.6 MG TAB PO SCH (09:55)
[2022-11-10] MEDS: ACETAMINOPHEN 325 MG TABLET (FP) PO PRN (09:55)
[2022-11-10] MEDS: MULTIVITAMINS (DAILY MVI) TABLET (FP) PO SCH (09:55)
[2022-11-10] MEDS: PANTOPRAZOLE 40 MG TABLET PO SCH (09:58)
[2022-11-10] MEDS: methylPREDNISolone NA SUCC 40 MG/1 ML VIAL IVPB SCH (10:05)
[2022-11-10] MEDS: FOLIC ACID 1 MG TABLET (FP) PO SCH (10:16)
[2022-11-10] MEDS ORDERED: chlordiazePOXIDE HCL 25 MG CAPSULE PO PRN (13:40)
[2022-11-10] MEDS ORDERED: chlordiazePOXIDE HCL 25 MG CAPSULE PO SCH (14:00)
[2022-11-10] MEDS: amLODIPine BESYLATE 5 MG TABLET (FP) PO SCH (14:09)
[2022-11-10] MEDS ORDERED: IRON SUCROSE INJECTION 200 MG in SODIUM CHLORIDE 90 ML IVPB ONE (15:00)
[2022-11-10] MEDS: OLANZapine 10 MG TABLET PO SCH (21:25)
[2022-11-11] MEDS: COLCHICINE 0.6 MG TAB PO SCH ×2 (08:52→09:07)
[2022-11-11] MEDS: amLODIPine BESYLATE 5 MG TABLET (FP) PO SCH ×2 (08:52→09:07)
[2022-11-11] MEDS: MULTIVITAMINS (DAILY MVI) TABLET (FP) PO SCH ×2 (08:52→09:07)
[2022-11-11] MEDS: FOLIC ACID 1 MG TABLET (FP) PO SCH ×2 (08:52→09:07)
[2022-11-11] MEDS: THIAMINE HCL 100 MG TABLET (FP) PO SCH ×2 (08:52→09:07)
[2022-11-11] MEDS: CALCIUM 500MG/VIT-D 200 UNITS COMBO TABLET (FP) PO SCH ×2 (08:52→09:07)
[2022-11-11] MEDS: methylPREDNISolone NA SUCC 40 MG/1 ML VIAL IVPB SCH ×2 (08:53→09:07)
[2022-11-11] MEDS: PANTOPRAZOLE 40 MG TABLET PO SCH ×2 (08:53→09:07)
[2022-11-11 11:21] LABS: BASO % 0.5 % (0-2.0); EOS % 0.8 % (0-4.5); HEMATOCRIT 25.2 % (35.4-49); HEMOGLOBIN 8.4 GM/dL (11.7-16.9); LYMPH % 8.9 % (8-40); MCH 28.6 pg (25.7-33.7); MCHC 33.5 g/dl (32.0-35.9); MEAN CELL VOLUME 85.4 fl (80-96); MEAN PLT VOLUME 9.3 fl (7.5-11.1); NEUT % 84.8 % (42.8-82.8); PLATELET COUNT 473 10^3/uL (134-434); RBC 2.95 M/mm3 (4.00-5.60); RDW 14.8 % (11.9-15.9); WHITE BLOOD COUNT 9.5 K/mm3 (4.0-10.0)
[2022-11-11 11:42] LABS: CHLORIDE 97 mmol/L (98-107); POTASSIUM 4.2 mmol/L (3.5-5.1); SODIUM 134 mmol/L (136-145)
[2022-11-11 11:45] LABS: ANION GAP 10 MMOL/L (8-16); CO2 26 mmol/L (21-32)
[2022-11-11 11:46] LABS: BLOOD UREA NITROGEN 26.8 mg/dL (7-18)
[2022-11-11 11:48] LABS: SGOT/AST 26 U/L (15-37); SGPT/ALT 61 U/L (13-61)
[2022-11-11 11:50] LABS: BILIRUBIN,TOTAL 1.1 mg/dL (0.2-1); TOT PROT 7.8 g/dl (6.4-8.2)
[2022-11-11 11:51] LABS: ALK PHOS 176 U/L (45-117)
[2022-11-11 12:00] LABS: ALBUMIN 2.6 g/dl (3.4-5.0); CALCIUM 9.4 mg/dL (8.5-10.1); GLUCOSE,RANDOM 515 mg/dL (74-106)
[2022-11-11] MEDS: INSULIN SLIDING SCALE (NOVOLOG) 1 VIAL SQ SCH ×2 (16:31→22:21)
[2022-11-11] MEDS ORDERED: INSULIN (NOVOLOG) ASPART 100 UNITS/ML 10ML VIAL SQ ONE ×2 (16:45→22:18)
[2022-11-11 17:25] LABS: GLUCOSE,RANDOM 753 mg/dL (74-106)
[2022-11-11] MEDS: LOSARTAN 50MG/HCTZ 12.5MG 1 TAB PO SCH (17:38)
[2022-11-11] MEDS: SODIUM CHLORIDE 1,000 ML IV SCH (18:27)
[2022-11-11] MEDS: OLANZapine 10 MG TABLET PO SCH (22:08)
[2022-11-12] MEDS: SODIUM CHLORIDE 1,000 ML IV SCH (04:15)
[2022-11-12] MEDS: INSULIN SLIDING SCALE (NOVOLOG) 1 VIAL SQ SCH ×4 (06:26→21:35)
[2022-11-12] MEDS: methylPREDNISolone NA SUCC 40 MG/1 ML VIAL IVPB SCH (09:18)
[2022-11-12] MEDS: ACETAMINOPHEN 325 MG TABLET (FP) PO PRN (09:18)
[2022-11-12] MEDS: THIAMINE HCL 100 MG TABLET (FP) PO SCH (09:19)
[2022-11-12] MEDS: PANTOPRAZOLE 40 MG TABLET PO SCH (09:19)
[2022-11-12] MEDS: COLCHICINE 0.6 MG TAB PO SCH (09:19)
[2022-11-12] MEDS: amLODIPine BESYLATE 5 MG TABLET (FP) PO SCH (09:20)
[2022-11-12] MEDS: MULTIVITAMINS (DAILY MVI) TABLET (FP) PO SCH (09:20)
[2022-11-12] MEDS: FOLIC ACID 1 MG TABLET (FP) PO SCH (09:20)
[2022-11-12] MEDS: CALCIUM 500MG/VIT-D 200 UNITS COMBO TABLET (FP) PO SCH (09:20)
[2022-11-12] MEDS: LOSARTAN 50MG/HCTZ 12.5MG 1 TAB PO SCH (09:24)
[2022-11-12] MEDS: SPIRONOLACTONE 25 MG TABLET PO SCH (11:58)
[2022-11-12] MEDS: OLANZapine 10 MG TABLET PO SCH (21:33)
[2022-11-13] MEDS: INSULIN (NOVOLOG) ASPART 100 UNITS/ML 10ML VIAL SQ SCH ×3 (06:19→16:25)
[2022-11-13] MEDS: INSULIN (LEVEMIR) 100 UNITS/ML UNITS SQ SCH (06:20)
[2022-11-13] MEDS: INSULIN SLIDING SCALE (NOVOLOG) 1 VIAL SQ SCH ×4 (06:21→21:26)
[2022-11-13] MEDS ORDERED: INSULIN (LEVEMIR) 100 UNITS/ML UNITS SQ SCH ×3 (07:00→22:00)
[2022-11-13 09:01] LABS: BASO % 0.4 % (0-2.0); EOS % 0.8 % (0-4.5); HEMATOCRIT 27.1 % (35.4-49); HEMOGLOBIN 9.4 GM/dL (11.7-16.9); LYMPH % 27.4 % (8-40); MCH 29.2 pg (25.7-33.7); MCHC 34.5 g/dl (32.0-35.9); MEAN CELL VOLUME 84.6 fl (80-96); MEAN PLT VOLUME 9.4 fl (7.5-11.1); MONO % 6.2 % (3.8-10.2); NEUT % 65.2 % (42.8-82.8); PLATELET COUNT 484 10^3/uL (134-434); RBC 3.21 M/mm3 (4.00-5.60); RDW 15.4 % (11.9-15.9); WHITE BLOOD COUNT 10.1 K/mm3 (4.0-10.0)
[2022-11-13] MEDS: FOLIC ACID 1 MG TABLET (FP) PO SCH (09:48)
[2022-11-13] MEDS: SPIRONOLACTONE 25 MG TABLET PO SCH (09:48)
[2022-11-13] MEDS: CALCIUM 500MG/VIT-D 200 UNITS COMBO TABLET (FP) PO SCH (09:48)
[2022-11-13] MEDS: methylPREDNISolone NA SUCC 40 MG/1 ML VIAL IVPB SCH (09:48)
[2022-11-13] MEDS: MULTIVITAMINS (DAILY MVI) TABLET (FP) PO SCH (09:48)
[2022-11-13] MEDS: COLCHICINE 0.6 MG TAB PO SCH (09:48)
[2022-11-13] MEDS: LOSARTAN 50MG/HCTZ 12.5MG 1 TAB PO SCH (09:48)
[2022-11-13] MEDS: PANTOPRAZOLE 40 MG TABLET PO SCH (09:48)
[2022-11-13] MEDS: THIAMINE HCL 100 MG TABLET (FP) PO SCH (09:48)
[2022-11-13 10:28] LABS: CHLORIDE 105 mmol/L (98-107); POTASSIUM 3.9 mmol/L (3.5-5.1); SODIUM 139 mmol/L (136-145)
[2022-11-13 10:31] LABS: ALBUMIN 2.7 g/dl (3.4-5.0); ANION GAP 7 MMOL/L (8-16); BLOOD UREA NITROGEN 24.9 mg/dL (7-18); CO2 27 mmol/L (21-32)
[2022-11-13 10:34] LABS: CREATININE 0.8 mg/dL (0.55-1.3); SGOT/AST 21 U/L (15-37); SGPT/ALT 47 U/L (13-61)
[2022-11-13 10:35] LABS: TOT PROT 7.8 g/dl (6.4-8.2)
[2022-11-13 10:36] LABS: ALK PHOS 158 U/L (45-117); URIC ACID 5.8 mg/dL (2.6-7.2)
[2022-11-13 10:53] LABS: GLUCOSE,RANDOM 49 mg/dL (74-106)
[2022-11-13] MEDS ORDERED: INSULIN (NOVOLOG) ASPART 100 UNITS/ML 10ML VIAL ONE ×2 (11:27→21:06)
[2022-11-13] MEDS: OLANZapine 10 MG TABLET PO SCH (21:20)
[2022-11-14] MEDS: INSULIN (LEVEMIR) 100 UNITS/ML UNITS SQ SCH (06:01)
[2022-11-14] MEDS: INSULIN SLIDING SCALE (NOVOLOG) 1 VIAL SQ SCH ×4 (06:02→21:43)
[2022-11-14] MEDS: INSULIN (NOVOLOG) ASPART 100 UNITS/ML 10ML VIAL SQ SCH ×3 (07:24→16:56)
[2022-11-14] MEDS: THIAMINE HCL 100 MG TABLET (FP) PO SCH (09:35)
[2022-11-14] MEDS: MULTIVITAMINS (DAILY MVI) TABLET (FP) PO SCH (09:36)
[2022-11-14] MEDS: methylPREDNISolone NA SUCC 40 MG/1 ML VIAL IVPB SCH (09:36)
[2022-11-14] MEDS: CALCIUM 500MG/VIT-D 200 UNITS COMBO TABLET (FP) PO SCH (09:36)
[2022-11-14] MEDS: FOLIC ACID 1 MG TABLET (FP) PO SCH (09:36)
[2022-11-14] MEDS: LOSARTAN 50MG/HCTZ 12.5MG 1 TAB PO SCH (09:36)
[2022-11-14] MEDS: SPIRONOLACTONE 25 MG TABLET PO SCH (09:36)
[2022-11-14] MEDS: COLCHICINE 0.6 MG TAB PO SCH (09:36)
[2022-11-14] MEDS: PANTOPRAZOLE 40 MG TABLET PO SCH (09:36)
[2022-11-14] MEDS ORDERED: LORazepam 2 MG/ML SDV VIAL IVPUSH PRN (09:56)
[2022-11-14] MEDS ORDERED: INSULIN (NOVOLOG) ASPART 100 UNITS/ML 10ML VIAL ONE (12:30)
[2022-11-14] MEDS: OLANZapine 10 MG TABLET PO SCH (21:38)
[2022-11-15] MEDS: INSULIN (NOVOLOG) ASPART 100 UNITS/ML 10ML VIAL SQ SCH ×2 (06:51→12:10)
[2022-11-15] MEDS: INSULIN SLIDING SCALE (NOVOLOG) 1 VIAL SQ SCH ×2 (06:52→12:10)
[2022-11-15] MEDS: MULTIVITAMINS (DAILY MVI) TABLET (FP) PO SCH (09:05)
[2022-11-15] MEDS: LOSARTAN 50MG/HCTZ 12.5MG 1 TAB PO SCH (09:05)
[2022-11-15] MEDS: SPIRONOLACTONE 25 MG TABLET PO SCH (09:05)
[2022-11-15] MEDS: THIAMINE HCL 100 MG TABLET (FP) PO SCH (09:05)
[2022-11-15] MEDS: COLCHICINE 0.6 MG TAB PO SCH (09:05)
[2022-11-15] MEDS: PANTOPRAZOLE 40 MG TABLET PO SCH (09:05)
[2022-11-15] MEDS: FOLIC ACID 1 MG TABLET (FP) PO SCH (09:05)
[2022-11-15] MEDS: CALCIUM 500MG/VIT-D 200 UNITS COMBO TABLET (FP) PO SCH (09:05)
[2022-11-15 10:49] VITALS: BP 141/82; PULSE 108; TEMP 98.3
== END 2022-11-15 12:29 | disposition home or self-care (01) | DRG 663 ==
LOC: JER 12:17 → JERBED 15:13 → J6S 18:09
PROVIDERS: ADMIT Family Medicine; ATTEND Family Medicine
PROC: HZ2ZZZZ Detoxification Services for Substance Abuse Treatment (ICD-10-PCS; 2022-11-04)
PROC: 30233N1 Transfusion of Nonautologous Red Blood Cells into Peripheral Vein, Percutaneous Approach (ICD-10-PCS; principal; 2022-11-05)
DX: D64.9 Anemia, unspecified (principal); E88.09 Other disorders of plasma-protein metabolism, not elsewhere classified; I13.10 Hypertensive heart and chronic kidney disease without heart failure, with stage 1 through stage 4 chronic kidney disease, or unspecified chronic kidney disease; F25.9 Schizoaffective disorder, unspecified; E11.9 Type 2 diabetes mellitus without complications; E80.6 Other disorders of bilirubin metabolism; F10.230 Alcohol dependence with withdrawal, uncomplicated; F17.210 Nicotine dependence, cigarettes, uncomplicated; J44.9 Chronic obstructive pulmonary disease, unspecified; M1A.4 Other secondary chronic gout; N18.9 Chronic kidney disease, unspecified; E87.70 Fluid overload, unspecified
CPT/HCPCS: 0241U-QW; 36415; 36430; 71045-TC-FY; 73110-TC-RT-FY; 73130-TC-RT-FY; 80053; 81003; 82272; 82947; 82962; 83036; 83605; 83880; 84484; 84550; 85025; 85027; 85610; 85651; 85730; 86140; 86850; 86900; 86901; 87040; 87086; 93005; 93010; 93970-TC; 97116-GP; 97162-GP; 99285-25; J1756; P9058

== ENCOUNTER 2023-01-13 18:07 | Emergency (ER) | payer OTHER ==
[2023-01-13 18:24] VITALS: TEMP 97.2; BMI 24.2
[2023-01-13 19:00] LABS: VENOUS O2 SATURATION 69.7 % (70-80); VENOUS PH 7.237 (7.310-7.410)
[2023-01-13 19:06] LABS: BASO % 0.2 % (0-2.0); HEMATOCRIT 32.2 % (35.4-49); HEMOGLOBIN 10.5 GM/dL (11.7-16.9); LYMPH % 17.8 % (8-40); MCH 27.5 pg (25.7-33.7); MCHC 32.7 g/dl (32.0-35.9); MEAN CELL VOLUME 84.1 fl (80-96); MEAN PLT VOLUME 8.6 fl (7.5-11.1); MONO % 8.5 % (3.8-10.2); NEUT % 71.5 % (42.8-82.8); PLATELET COUNT 259 10^3/uL (134-434); RBC 3.83 M/mm3 (4.00-5.60); RDW 14.7 % (11.9-15.9); WHITE BLOOD COUNT 7.6 K/mm3 (4.0-10.0)
[2023-01-13 19:11] LABS: INR 1.15 (0.83-1.09); PROTHROMBIN TIME (PATIENT) 13.3 SEC (9.7-13.0)
[2023-01-13 19:14] LABS: ACTIVATED PTT 33.2 SECONDS (25.2-36.5)
[2023-01-13 19:24] LABS: CHLORIDE 105 mmol/L (98-107); POTASSIUM 3.2 mmol/L (3.5-5.1); SODIUM 138 mmol/L (136-145)
[2023-01-13 19:26] LABS: CALCIUM 9.1 mg/dL (8.5-10.1)
[2023-01-13 19:27] LABS: ALBUMIN 3.6 g/dl (3.4-5.0); ANION GAP 7 MMOL/L (8-16); BLOOD UREA NITROGEN 6.9 mg/dL (7-18); CO2 26 mmol/L (21-32); MAGNESIUM 1.6 mg/dL (1.8-2.4)
[2023-01-13 19:28] LABS: GLUCOSE,RANDOM 201 mg/dL (74-106)
[2023-01-13 19:30] LABS: CREATININE 0.9 mg/dL (0.55-1.3); PHOSPHOROUS 4.2 mg/dL (2.5-4.9); SGOT/AST 15 U/L (15-37); SGPT/ALT 18 U/L (13-61)
[2023-01-13 19:31] LABS: BILIRUBIN,TOTAL 0.3 mg/dL (0.2-1)
[2023-01-13 19:32] LABS: TOT PROT 7.4 g/dl (6.4-8.2)
[2023-01-13 19:33] LABS: ALK PHOS 89 U/L (45-117)
[2023-01-13] MEDS ORDERED: POTASSIUM CHLORIDE ORAL LIQUID 20 MEQ/15 ML PO ONE (20:19)
[2023-01-13] MEDS ORDERED: POTASSIUM CHLORIDE TABS 20 MEQ TABLET.ER (FP) PO ONE (20:23)
[2023-01-13] MEDS ORDERED: POTASSIUM CHLORIDE ORAL LIQUID 20 MEQ/15 ML ONE (20:26)
[2023-01-13 20:43] LABS: EPI CELLS 13 /uL (0-25.1); HYALINE CASTS 0 /uL (0-3.1); PH,URINE 5.5 (5.0-8.0); URINE APPEARANCE CLEAR; URINE BACTERIA 1181 /uL (0-1359); URINE BILIRUBIN NEGATIVE (NEGATIVE); URINE COLOR YELLOW; URINE GLUCOSE (UA) NEGATIVE (NEGATIVE); URINE KETONE NEGATIVE (NEGATIVE); URINE LEUK ESTERASE 2+ (NEGATIVE); URINE NITRITE NEGATIVE (NEGATIVE); URINE PROTEIN NEGATIVE (NEGATIVE); URINE RBC 9 /uL (0-23.9); URINE UROBILINOGEN 0.2 mg/dL (0.2-1.0); URINE WBC 87 /uL (0-25.8)
[2023-01-13] MEDS ORDERED: CEFTRIAXONE 1,000 MG in DEXTROSE 5%-WATER - 50 ML IVPB ONE (20:59)
[2023-01-13] MEDS ORDERED: CEFTRIAXONE 1 GM/50 ML BAG ONE (21:01)
[2023-01-14 00:13] LABS: COCAINE, UR NEGATIVE (NEGATIVE); METHADONE, UR NEGATIVE (NEGATIVE); OPIATES, URI NEGATIVE (NEGATIVE); PHENCYCLIDINE,URINE NEGATIVE (NEGATIVE); URINE AMPHETAMINES NEGATIVE (NEGATIVE); URINE BENZODIAZEPINES NEGATIVE (NEGATIVE)
[2023-01-14 00:14] LABS: URINE BARBITURATES NEGATIVE (NEGATIVE)
[2023-01-14 01:26] VITALS: BP 175/79; PULSE 87; RESP 16
== END 2023-01-14 01:35 | disposition home or self-care (01) ==
LOC: JER 18:07
DX: R40.0 Somnolence (principal); R41.82 Altered mental status, unspecified
CPT/HCPCS: 36415; 70450-TC; 70486-TC; 71045-TC-FY; 72125-TC; 80053; 80307; 81003; 82550; 82803; 83605; 83735; 84100; 84443; 84484; 85025; 85610; 85730; 87040; 87086; 87186; 93005; 93010; 99285-25

== ENCOUNTER 2024-01-28 19:24 | Emergency (ER) | payer OTHER ==
[2024-01-28 19:55] VITALS: BP 149/75; PULSE 57; RESP 14; TEMP 98.4; BMI 23.2
[2024-01-28] MEDS ORDERED: NALOXONE HCL 0.4 MG/ML VIAL ONE (21:50)
[2024-01-28] MEDS: NALOXONE HCL 0.4 MG/ML VIAL IM ONE (21:55)
== END 2024-01-28 22:38 | disposition home or self-care (01) ==
LOC: JER 19:24
PROC: 3E023GC Introduction of Other Therapeutic Substance into Muscle, Percutaneous Approach (ICD-10-PCS; principal; 2024-01-28)
DX: F11.10 Opioid abuse, uncomplicated (principal); R55 Syncope and collapse
CPT/HCPCS: 93005; 93010; 99284-25

== ENCOUNTER 2024-01-31 21:36 | Emergency (ER) | payer OTHER ==
[2024-01-31 21:59] VITALS: BP 175/83; PULSE 106; RESP 18; TEMP 98.8; BMI 25.0
== END 2024-02-01 00:29 | disposition home or self-care (01) ==
LOC: JER 21:36
DX: F48.9 Nonpsychotic mental disorder, unspecified (principal)
CPT/HCPCS: 99282-25